=== PATIENT | male | born 1945 | race Two or more races ===

== ENCOUNTER 2018-03-23 12:25 | Emergency (ER) | payer MEDICARE, OTHER, SELFPAY ==
[2018-03-23 12:26] VITALS: BP 142/99; PULSE 75; RESP 22; TEMP 36.8; O2SAT 97; BMI 25.1
--- NOTE | 2018-03-23 12:30 | EKG12_ITS ---
Test Reason : CP Blood Pressure : / mmHG Vent. Rate : 066 BPM Atrial Rate : 066 BPM P-R Int : 158 ms QRS Dur : 088 ms QT Int : 392 ms P-R-T Axes : 011 -22 -03 degrees QTc Int : 410 ms Normal sinus rhythm Voltage criteria for left ventricular hypertrophy Abnormal ECG Confirmed by ANA WILKERSON, JAGDISH ([id number]), technical writer and editor SLADE MORA ([id number]) on 03/26/2018 1:42:27 PM Referred By: ZULEYKA Confirmed By:JAGDISH PEREZ MD
[2018-03-23] MEDS: Aspirin 81 MG TAB.CHEW 324 MG PO (12:39)
[2018-03-23 12:41] VITALS: O2SAT 97
--- NOTE | 2018-03-23 12:45 | RAD_ITS ---
STUDY: X-RAY CHEST REASON FOR EXAM: Male, 72 years old. Mid chest pain. TECHNIQUE: Portable chest COMPARISON: 08/21/2013. FINDINGS: The lungs are clear and expanded. Normal cardiomediastinal silhouette, arnold and pleural margins. No acute osseous or upper abdominal process. RAD/Chest 1 View (Portable) IMPRESSION: No acute cardiopulmonary process. Electronically Signed: Braulio Tiwari, at 13:29 EDT Tel , Service support ,
[2018-03-23 12:47] LABS: Absolute Lymphocyte Count 1.93 X10^3/ul (0.83-4.51); Absolute Neutrophil Count 4.2 X10^3/uL (2.0-7.7); Basophil# 0.07 X10^3/uL; Eosinophil# 0.15 X10^3/uL; Eosinophils% 2.1 % (0-5); Hematocrit 40.7 % (40-54); Hemoglobin 13.7 g/dl (13.0-16.5); Lymphocyte # 1.93 X10^3/ul (4.0); Mean Corp Hgb Conc 33.7 g/gl (32-36); Mean Corpuscular Hgb 27.7 pg (27.0-32.0); Mean Corpuscular Volume 82.2 fL (80-94); Mean Platelet Vol. 9.1 fl (6.2-12.0); Monocyte# 0.83 X10^3/uL; Monocyte% 11.6 % (0-10); Neutrophil # 4.15 X10^3/uL (2.7-7.7); Neutrophil % 58.2 % (47-70); Platelet Count 199 K/mm3 (150-450); Red Blood Count 4.95 M/mm3 (4.6-6.2); White Blood Count 7.1 K/mm3 (4.4-11.0)
[2018-03-23 12:50] LABS: POSITIVE COUNT NO; POSITIVE DIFFERENTIAL NO; POSITIVE MORPHOLOGY NO
[2018-03-23 13:00] LABS: Anion Gap 8 (5-15); BUN 16 mg/dL (7-18); BUN/Creat Ratio 17.9 RATIO (10-20); Calcium,Total 9.3 mg/dL (8.5-10.1); Chloride 98 mmol/L (98-107); EST Glomerular Filtration Rate 88 mL/min (>60); Est Glom Filt Rate - Afr Amer 107 mL/min (>60); Estimated Creatinine Clearance 68.34 ml/min; Glucose 242 mg/dL (74-106); Potassium 3.9 mmol/L (3.5-5.1); Sodium Level 133 mmol/L (136-145)
[2018-03-23 14:22] VITALS: BP 158/103; PULSE 70; RESP 18; O2SAT 99
[2018-03-23 15:15] VITALS: BP 158/85; PULSE 63; RESP 18; O2SAT 99
--- NOTE | 2018-03-23 15:19 | ED.DCSUM_ITS ---
- ER Visit Summary Date of Service: 03/23/18 Chief Complaint: Chest pain History of Present Illness: The patient is a 72 M with chest pain for an hour and a half, he has had cough with chest pain when he coughs for the past few days but an hour and half ago it got slightly worse. He has no fever chills no difficulty breathing. He has no shortness of breath he has a chronic cough. He does not have a history of hypertension, however he has hypertensive in the ED. Physical Examination: Not appear in acute distress. Moist mucous membranes, no obvious facial deformity No C-spine tenderness supple neck. Regular rate and rhythm without any obvious murmurs. There is reproducible r ight chest wall tenderness where he says his pain is. Clear lungs bilaterally speaking in full sentences without any obvious respiratory distress Abdomen soft and nontender no guarding or rebound Moves all extremities without any difficulty or pain. Skin does not show any obvious rashes or lesions, no trauma. Alert oriented ?3 with no gross focal deficit Emergency Department Course and Treatment: Patient has reproducible chest wall pain with an unremarkable EKG, however for his safety blood work was obtained and has a negative troponin, chest x-ray is also unremarkable. This is low risk for cardiac events I discussed this with him, he will be discharged to follow-up with Dr. Reeves for his blood pressure. Disposition: [Discharge stable condition] Impression: Chest pain Hypertension This note was generated with [employer] dictation software. It may contain incorrect words, spelling, and punctuation that were not noted in review of the chart prior to signing ED Disposition - Plan for ED Patient: Chief Complaint: Chest Pain Referrals: Jemma Reeves MD [Primary Care Provider] -
--- NOTE | 2018-03-23 15:20 | ED.DEP ---
ED Disposition - Plan for ED Patient: Disposition: Home or Assisted Living Chief Complaint: Chest Pain Instructions: ED Chest Pain Atypical Unkn Cause, ED Strain Chest Wall, ED Hypertension New Begin Tx Referrals: Jemma Reeves MD [Primary Care Provider] - 3-5 Days
== END 2018-03-23 15:31 | disposition home or self-care (01) ==
PROVIDERS: Emergency Provider Emergency Medicine; Family Provider Internal Medicine; PCP Internal Medicine
DX: R07.9 Chest pain, unspecified (principal); I10 Essential (primary) hypertension; R05 Cough
CPT/HCPCS: 71045; 80048; 84484; 85025; 93005; 99285; A4216

== ENCOUNTER 2018-10-06 15:53 | Inpatient (IN) | payer MEDICARE, OTHER, SELFPAY ==
[2018-10-06] VITALS (13 sets, daily range): BP systolic 112–170; BP diastolic 07–114; PULSE 65–95; RESP 12–28; TEMP 36.5–36.8; O2SAT 95–99; BMI 27.0; BMI 25.0; BMI 25.1
--- NOTE | 2018-10-06 16:06 | CT_ITS ---
STUDY: CTA NECK WITH CONTRAST REASON FOR EXAM: Male, 73 years old. Expressive aphasia and right facial droop RADIATION DOSAGE (If Supplied By Facility): CTDIvol = ( 21.41 ) mGy, DLP = ( 666.00 ) mGycm TECHNIQUE: CT angiography with multi-detector data acquisition was performed from the aortic arch to the skull base following intravenous administration of 100mL IV Isovue 370. MIP images were reconstructed from the axial data set. Post-processing of the angiographic images was performed, with multiplanar reformation and 3D reconstruction. Individualized dose optimization techniques were used for this CT. COMPARISON: None. FINDINGS: AORTIC ARCH: Normal visualized aortic arch. Mild calcific plaquing of the origin of the brachiocephalic. Normal, left common carotid, and left subclavian arteries. RIGHT CAROTID ARTERIES: Normal right common carotid artery (CCA). Normal right common carotid bulb. Normal origin of the right internal carotid (ICA) artery without a hemodynamically significant stenosis. Normal visualized cervical portion of the right internal carotid artery. Normal origin of the right external carotid artery (ECA). LEFT CAROTID ARTERIES: Normal left common carotid artery (CCA). Normal left common carotid bulb. Normal origin of the left internal carotid (ICA) artery without a hemodynamically significant stenosis. Normal visualized cervical portion of the left internal carotid artery. Normal origin of the left external carotid artery (ECA). VERTEBRAL ARTERIES: Normal bilateral vertebral arteries. IMPRESSION: Mild atherosclerotic disease No evidence for hemodynamically significant stenosis utilizing NASCET criteria Electronically Signed: Hola Perry MD at 17:05 EDT , Service support , STUDY: CTA OF THE BRAIN REASON FOR EXAM: Male, 73 years old. Stroke RADIATION DOSAGE (If Supplied By Facility): CTDIvol = ( 21.41 ) mGy, DLP = ( 666.00 ) mGycm TECHNIQUE: CT angiography was performed with a multi-detector CT scanner. Data acquisition was obtained from the skull base through the vertex following intravenous administration of 100mL IV Isovue 370. MIP images were reconstructed from the axial data set. Post-processing of the angiographic images was performed, with multiplanar reformation and 3D reconstruction. Individualized dose optimization techniques were used for this CT. COMPARISON: MRA of the brain on April 21, 2012 FINDINGS: Normal bilateral petrous carotid arteries. Moderate diffuse calcific plaquing of the right cavernous carotid artery with a normal supraclinoid bifurcation. Moderate diffuse calcific plaquing of the left cavernous carotid artery with a normal supraclinoid bifurcation. Normal right A1 segments of the anterior cerebral artery. Normal left A1 segments of the anterior cerebral artery. Normal intact anterior communicating artery (ACOM). Normal bilateral A2 segments of the anterior cerebral arteries. Normal right M1 and M2 segments of the middle cerebral arteries, with a normal M1 bifurcation. Normal left M1 and M2 segments of the middle cerebral arteries, with a normal M1 bifurcation. Posterior communicating arteries are not visualized consistent with normal variant Normal bilateral vertebral arteries. Normal basilar artery with a normal basilar bifurcation. The visualized bilateral superior cerebellar (SCA) arteries are normal. Normal bilateral P1, P2 and visualized P3 segments of the posterior cerebral arteries. There is no demonstrated aneurysm of the [place]. There is no demonstrated abnormality of the visualized brain. CT/CTA Head W/WO Contrast IMPRESSION: Atherosclerotic changes without a demonstrated aneurysm or hemodynamically significant stenosis. Electronically Signed: Hola Perry MD at 17:11 EDT , Service support ,
--- NOTE | 2018-10-06 16:06 | RAD_ITS ---
STUDY: X-RAY CHEST REASON FOR EXAM: Male, 73 years old. Stroke TECHNIQUE: Portable chest COMPARISON: 03/23/2018 FINDINGS: The lungs are clear and expanded. There is no demonstrated pleural abnormality. Normal size heart. Normal mediastinum and arnold. Normal visualized pulmonary arteries. Normal visualized aortic arch and descending thoracic aorta. Normal visualized thoracic spine. Normal visualized ribs, clavicles, and shoulders. There is no demonstrated abnormality of the visualized soft tissue structures of the upper abdomen. RAD/Chest 1 View IMPRESSION: Normal x-ray examination of the chest. Electronically Signed: Yohannes Talbert, at 16:40 EDT Tel , Service support ,
--- NOTE | 2018-10-06 16:06 | CT_ITS ---
STUDY: CTA NECK WITH CONTRAST REASON FOR EXAM: Male, 73 years old. Expressive aphasia and right facial droop RADIATION DOSAGE (If Supplied By Facility): CTDIvol = ( 21.41 ) mGy, DLP = ( 666.00 ) mGycm TECHNIQUE: CT angiography with multi-detector data acquisition was performed from the aortic arch to the skull base following intravenous administration of 100mL IV Isovue 370. MIP images were reconstructed from the axial data set. Post-processing of the angiographic images was performed, with multiplanar reformation and 3D reconstruction. Individualized dose optimization techniques were used for this CT. COMPARISON: None. FINDINGS: AORTIC ARCH: Normal visualized aortic arch. Mild calcific plaquing of the origin of the brachiocephalic. Normal, left common carotid, and left subclavian arteries. RIGHT CAROTID ARTERIES: Normal right common carotid artery (CCA). Normal right common carotid bulb. Normal origin of the right internal carotid (ICA) artery without a hemodynamically significant stenosis. Normal visualized cervical portion of the right internal carotid artery. Normal origin of the right external carotid artery (ECA). LEFT CAROTID ARTERIES: Normal left common carotid artery (CCA). Normal left common carotid bulb. Normal origin of the left internal carotid (ICA) artery without a hemodynamically significant stenosis. Normal visualized cervical portion of the left internal carotid artery. Normal origin of the left external carotid artery (ECA). VERTEBRAL ARTERIES: Normal bilateral vertebral arteries. IMPRESSION: Mild atherosclerotic disease No evidence for hemodynamically significant stenosis utilizing NASCET criteria Electronically Signed: Hola Perry MD at 17:05 EDT , Service support , STUDY: CTA OF THE BRAIN REASON FOR EXAM: Male, 73 years old. Stroke RADIATION DOSAGE (If Supplied By Facility): CTDIvol = ( 21.41 ) mGy, DLP = ( 666.00 ) mGycm TECHNIQUE: CT angiography was performed with a multi-detector CT scanner. Data acquisition was obtained from the skull base through the vertex following intravenous administration of 100mL IV Isovue 370. MIP images were reconstructed from the axial data set. Post-processing of the angiographic images was performed, with multiplanar reformation and 3D reconstruction. Individualized dose optimization techniques were used for this CT. COMPARISON: MRA of the brain on April 21, 2012 FINDINGS: Normal bilateral petrous carotid arteries. Moderate diffuse calcific plaquing of the right cavernous carotid artery with a normal supraclinoid bifurcation. Moderate diffuse calcific plaquing of the left cavernous carotid artery with a normal supraclinoid bifurcation. Normal right A1 segments of the anterior cerebral artery. Normal left A1 segments of the anterior cerebral artery. Normal intact anterior communicating artery (ACOM). Normal bilateral A2 segments of the anterior cerebral arteries. Normal right M1 and M2 segments of the middle cerebral arteries, with a normal M1 bifurcation. Normal left M1 and M2 segments of the middle cerebral arteries, with a normal M1 bifurcation. Posterior communicating arteries are not visualized consistent with normal variant Normal bilateral vertebral arteries. Normal basilar artery with a normal basilar bifurcation. The visualized bilateral superior cerebellar (SCA) arteries are normal. Normal bilateral P1, P2 and visualized P3 segments of the posterior cerebral arteries. There is no demonstrated aneurysm of the [place]. There is no demonstrated abnormality of the visualized brain. CT/CTA Neck W/WO Contrast IMPRESSION: Atherosclerotic changes without a demonstrated aneurysm or hemodynamically significant stenosis. Electronically Signed: Hola Perry MD at 17:11 EDT , Service support ,
--- NOTE | 2018-10-06 16:06 | EKG12_ITS ---
Test Reason : NEURO S/SX Blood Pressure : / mmHG Vent. Rate : 080 BPM Atrial Rate : 080 BPM P-R Int : 174 ms QRS Dur : 092 ms QT Int : 406 ms P-R-T Axes : 015 -16 009 degrees QTc Int : 468 ms Normal sinus rhythm Minimal voltage criteria for LVH, may be normal variant Borderline ECG Confirmed by PARVEEN ARIAS ([id number]), commercial production editor CALSO FARIAS ([id number]) on 10/08/2018 10:54:11 AM Referred By: Katie Yarbrough Confirmed By:PARVEEN ARIAS
--- NOTE | 2018-10-06 16:06 | CT_ITS ---
STUDY: CT BRAIN WITHOUT CONTRAST REASON FOR EXAM: Male, 73 years old. Possible stroke right facial droop RADIATION DOSAGE (If Supplied By Facility): CTDIvol = ( 44.99 ) mGy, DLP = ( 812.98 ) mGycm TECHNIQUE: Transaxial CT imaging of the brain was performed without administration of intravenous contrast material. Individualized dose optimization techniques were used for this CT. COMPARISON: CT 05/20/1970 FINDINGS: Normal soft tissue structures. Normal calvarium. There are stable central and cortical involutional changes. There is stable mild periventricular hypodensities. Normal brainstem. Normal cerebellum. There is no intracranial hemorrhage. There is no change from prior study. Normal visualized paranasal sinuses.Incidentally noted are old right maxillary and right zygoma fractures. CT/Brain/Head without Contrast IMPRESSION: Stable central and cortical involutional changes Stable old mild deep white matter ischemic changes, no change from prior study. Incidentally noted are old right maxillary and right zygoma fractures. There is also called to discussed with Physician: Sony Aguilar immediately after my review at 4:48 PM 10/06/2018. N.B. : The above information has been verbally conveyed by Yohannes Talbert to Sony Aguilar MD, MD, on 10/06/2018 16:51:58 (ET). Electronically Signed: Yohannes Talbert, at 16:52 EDT Tel , Service support ,
[2018-10-06 16:11] LABS: Bedside Glucose 228 mg/dL (70-110)
[2018-10-06 16:21] LABS: Absolute Lymphocyte Count 2.06 X10^3/ul (0.83-4.51); Absolute Neutrophil Count 3.6 X10^3/uL (2.0-7.7); Basophil# 0.06 X10^3/uL; Basophil% 0.9 % (0-1); Eosinophil# 0.28 X10^3/uL; Eosinophils% 4.2 % (0-5); Hematocrit 39.7 % (40-54); Hemoglobin 13.8 g/dl (13.0-16.5); Lymphocyte # 2.06 X10^3/ul (4.0); Lymphocyte % 30.7 % (19-41); Mean Corp Hgb Conc 34.8 g/gl (32-36); Mean Corpuscular Hgb 28.2 pg (27.0-32.0); Mean Platelet Vol. 9.4 fl (6.2-12.0); Monocyte# 0.71 X10^3/uL; Monocyte% 10.6 % (0-10); Neutrophil # 3.59 X10^3/uL (2.7-7.7); Neutrophil % 53.5 % (47-70); Platelet Count 197 K/mm3 (150-450); RBC Distribution Width CV 13.1 % (11.6-14.6); RBC Distribution Width SD 38.9 fl (35.1-43.9); White Blood Count 6.7 K/mm3 (4.4-11.0)
[2018-10-06 16:22] LABS: POSITIVE COUNT NO; POSITIVE DIFFERENTIAL NO; POSITIVE MORPHOLOGY NO
[2018-10-06 16:26] LABS: Prothrombin Time (Protime)PT. 13.3 SECONDS (11.7-14.9)
[2018-10-06 16:30] LABS: Anion Gap 8 (5-15); BUN 13 mg/dL (7-18); BUN/Creat Ratio 13.7 RATIO (10-20); Calcium,Total 9.2 mg/dL (8.5-10.1); Chloride 101 mmol/L (98-107); Creatinine, Serum 0.95 mg/dL (0.70-1.30); EST Glomerular Filtration Rate 82 mL/min (>60); Est Glom Filt Rate - Afr Amer 99 mL/min (>60); Glucose 237 mg/dL (74-106); Potassium 3.9 mmol/L (3.5-5.1); Sodium Level 132 mmol/L (136-145)
[2018-10-06 16:45] LABS: Partial Thromboplast Time 30.8 Seconds (24.1-36.2)
--- NOTE | 2018-10-06 18:41 | PCM.HP.STD ---
Problem List (1) CVA (cerebral vascular accident) Status: Acute (2) Hyponatremia Status: Acute (3) Diabetes mellitus Status: Chronic Qualifiers: Diabetes mellitus type: type 2 Comment: newly diagnosed, type II (4) BPH (benign prostatic hyperplasia) Status: Chronic History of Present Illness Date of Admission: 10/06/18 Chief Complaint: aphasia The patient is a 73 year old M with pmhx of DMt2 and knee arthritis who presents to the ER with c/o aphasia. He woke up this AM and made a phone call, the person on the other line noticed that his speech was off. He was last normal yesterday. His family also noticed that he missed his medications for about 4-5 days, and that he took them all at once today. He continues to have difficulty speaking. He was noted to have some right facial droop in the ER. Currently this appears resolved. His family says his face appears normal, but that his speech is still off. Some things he says are easily understandable, others are heavily slurred to the point that they cannot be understood. He denies focal weakness. He denies RENTERIA, he denies numbness/tingling. He otherwise feels well. He has no hx of atrial fibrillation, and no history of CVA. No immediate family hx strokes either. [] Past Medical History Past Medical History (Chronic Problems): Chronic Problems BPH (benign prostatic hyperplasia) (Chronic) Diastolic dysfunction, left ventricle (Chronic) Diabetes mellitus (Chronic) newly diagnosed, type II Ventral hernia (Chronic) Allergies No Known Allergies Allergy (Verified 10/06/18 16:02) Home Medications: Ambulatory Orders Medication Instructions Recorded Tamsulosin HCl [Flomax] 0.8 mg PO QHS 04/25/15 Naproxen [Naprosyn] 500 mg PO BID 10/06/18 traZODone [Desyrel] 50 mg PO DAILY 10/06/18 Surgical History: no surgical history Psychiatric History: No pertinent psych hx Lives: With Family Smoking Status: Never smoker Tobacco Use: Non-smoker Alcohol: None Drugs: None - *Family History Maternal History Items: No pertinent history Paternal History Items: No pertinent history Sibling History Items: - - bells palsy - brother Review of Systems Constitutional: Denies: Chills, Fever, Weight Change HEENT: Denies: Head Aches, Sinus Congestion, Sinus Drainage Cardiovascular: Denies: Chest Pain, Palpitations Respiratory: Denies: Cough, Shortness of breath at rest, Sputum production Gastrointestinal: Denies: Abdominal Pain, Nausea, Vomiting Genitourinary: Denies: Dysuria Musculoskeletal: Denies: Joint Pain, Joint Tenderness Skin: Denies: Rash, Wounds Neurological: Reports: Change in Speech, Slurred speech. Denies: Confusion, Focal weakness, Headaches, Numbness, Tingling Psychiatric: Denies: Anxiety, Depression, Homicidal Ideations, Suicidal Ideations Hematologic/ Lymphatic: Denies: Easy Bruising, Easy Bleeding VTE Information - Inpt Only VTE Present on Admission: No VTE Mechan Device Prophylaxis: None VTE Pharm Prophylaxis ordered?: Yes Patient Problems: Active and Suspected Problems CVA (cerebral vascular accident) (Acute) Hyponatremia (Acute) - Physical Exam General: Alert, Oriented x3, Cooperative HEENT: Atraumatic, PERRLA, EOMI, Normocephalic Neck: Supple, No JVD, Negative Carotid Bruits Lungs: Clear to auscultation, Normal air movement Cardiovascular: Regular rate, No murmurs Abdomen: Bowel Sounds Present, Soft, Non Tender Extremities: No edema, Capillary Refill Less than 3 Seconds Skin: No rashes, No breakdown Musculoskeletal: No Tenderness to Palpation of Joints or Extremities Neurological: Cranial nerves II-XII grossly intact, Slurred Speech, - - he had difficulty tracking the finger on eye exam however all movemens of the eye are intact. No facial droop. no pronator drift. Psych/Mental Status: Normal Affect, Appropriate, Alert and oriented to time, place, person, mood and affect Vital Signs Temp Pulse Resp BP Pulse Ox 98.2 F 79 16 145/102 H 98 10/06/18 15:54 10/06/18 18:30 10/06/18 18:30 10/06/18 18:30 10/06/18 18:30 Oxygen Flow Rate (L/min) 2 Oxygen Delivery Method Nasal Cannula Weight: 177 lb 14.609 oz Body Mass Index (BMI) 27.0 Finger Stick Blood Glucose 231 Laboratory Tests Past 24 Hrs 10/06/18 10/06/18 10/06/18 16:04 16:04 16:04 WBC 6.7 RBC 4.90 Hgb 13.8 Hct 39.7 L MCV 81.0 MCH 28.2 MCHC 34.8 RDW 13.1 RDW Differential 38.9 Plt Count 197 MPV 9.4 Immature Gran % (Auto) 0.100 Neut % (Auto) 53.5 Lymph % (Auto) 30.7 [place] % (Auto) 10.6 H Eos % (Auto) 4.2 Baso % (Auto) 0.9 Absolute Neuts (auto) 3.6 Absolute Lymphs (auto) 2.06 Total Counted Not Reportable PT 13.3 INR 1.0 APTT 30.8 Sodium 132 L Potassium 3.9 Chloride 101 Carbon Dioxide 23.0 Anion Gap 8 BUN 13 Creatinine 0.95 Estim Creat Clear Calc 66.00 Est GFR (MDRD) Af Amer 99 Est GFR (MDRD) Non-Af 82 BUN/Creatinine Ratio 13.7 Glucose 237 H Calcium 9.2 Troponin I < 0.015 POC Glucose 10/06/18 16:07 POC Glucose 228 H Assessment/Plan All Active Problems CVA (cerebral vascular accident) (Acute) Hyponatremia (Acute) Chest pain (Acute) 1. Aphasia, dysarthria, facial droop - concern for acute CVA. CT brain neg, CTA neck neg. Trop neg. CXR neg. He also took 4-5 days of medications at once today because he missed taking them (unclear which) -PT/OT/ST evals -MRI brain -Neuro consult -echo -tele 2. DMt2 - poorly controlled. check a1c. SSI. 3. BPH - flomax 4. Osteoarthritis - on naproxen DVT ppx: lovenox This patient was seen by Clay Anthony PA-C under the supervision of Dr. Yarbrough.
--- NOTE | 2018-10-06 18:55 | ED.VISSUMM ---
- ER Visit Summary Date of Service: 10/06/18 Chief Complaint: Slurred speech History of Present Illness: The patient is a [address] Acevedo. He reports that he has slurred speech that began 12 hours ago. He denies any numbness or weakness. He reports that his been off balance and had vertigo. He denies any change in his vision. Physical Examination: Vitals: Stable. Afebrile. General: Well-nourished and well-developed. Head: Normocephalic atraumatic. Neck: Supple, no lymphadenopathy. No JVD. Nontender. Cardiovascular: Regular rate and rhythm. No murmurs. Respiratory: No respiratory distress. Clear to auscultation bilaterally. Abdominal: Soft, nontender, nondistended, normal bowel sounds. No guarding, rebound, or peritoneal signs. Back: Nontender. Extremities: Nontender, no edema. Skin: Normal color, no rash. Neurologic: Alert and oriented ?3. Cranial nerves II through XII are intact except for a right facial droop. Normal strength and sensation. Obvious expressive aphasia. Psych: Normal affect. Test Results: EKG is sinus at [address] changes. Troponin is negative. Chem-7 shows a sodium 132 and glucose 237. CBC shows eosinophils of 11. CT head shows no acute disease. Is unchanged from May 20, 2017. CTA of head and neck shows normal vertebrals and carotids. Normal [place]. Normal A1/A2, M1/M2, and P1/P2. Emergency Department Course and Treatment: Patient symptoms have waxed and waned while here. His NIH scale is 3 and he does have an expressive aphasia. However, he presented approximately 12 hours after the onset of this. So he is not a TPA candidate. Treatment Plan: The patient was discussed with Dr. Yarbrough and Dr. Harden. He will be admitted to the hospital for further relation and treatment. Disposition: Admitted in stable condition. Impression: 1. CVA. This note was generated with [employer] dictation software. It may contain incorrect words, spelling, and punctuation that were not noted in review of the chart prior to signing ED Disposition - Plan for ED Patient: Referrals: Diamond Acevedo MD [Primary Care Provider] -
--- NOTE | 2018-10-06 18:59 | ED.DCSUM_ITS ---
- ER Visit Summary Date of Service: 10/06/18 Chief Complaint: Slurred speech History of Present Illness: The patient is a [address] Acevedo. He reports that he has slurred speech that began 12 hours ago. He denies any numbness or weakness. He reports that his been off balance and had vertigo. He denies any change in his vision. Physical Examination: Vitals: Stable. Afebrile. General: Well-nourished and well-developed. Head: Normocephalic atraumatic. Neck: Supple, no lymphadenopathy. No JVD. Nontender. Cardiovascular: Regular rate and rhythm. No murmurs. Respiratory: No respiratory distress. Clear to auscultation bilaterally. Abdominal: Soft, nontender, nondistended, normal bowel sounds. No guarding, rebound, or peritoneal signs. Back: Nontender. Extremities: Nontender, no edema. Skin: Normal color, no rash. Neurologic: Alert and oriented ?3. Cranial nerves II through XII are intact except for a right facial droop. Normal strength and sensation. Obvious expressive aphasia. Psych: Normal affect. Test Results: EKG is sinus at [address] changes. Troponin is negative. Chem-7 shows a sodium 132 and glucose 237. CBC shows eosinophils of 11. CT head shows no acute disease. Is unchanged from May 20, 2017. CTA o f head and neck shows normal vertebrals and carotids. Normal [place]. Normal A1/A2, M1/M2, and P1/P2. Emergency Department Course and Treatment: Patient symptoms have waxed and waned while here. His NIH scale is 3 and he does have an expressive aphasia. However, he presented approximately 12 hours after the onset of this. So he is not a TPA candidate. Treatment Plan: The patient was discussed with Dr. Yarbrough and Dr. Harden. He will be admitted to the hospital for further relation and treatment. Disposition: Admitted in stable condition. Impression: 1. CVA. This note was generated with [employer] dictation software. It may contain incorrect words, spelling, and punctuation that were not noted in review of the chart prior to signing ED Disposition - Plan for ED Patient: Referrals: Diamond Acevedo MD [Primary Care Provider] -
--- NOTE | 2018-10-06 19:32 | ECHOD_ITS ---
Reason For Study: TIA/Stroke Procedure This was a 2D Doppler, Color Flow transthoracic echocardiogram. Contrast injection was performed. Exam performed portable in patient room. Left Ventricle Normal size and thickness. The estimated ejection fraction is 65 %. Stage 1 diastolic dysfunction. No regional wall motion abnormalities noted. Right Ventricle Normal size and thickness. Normal systolic function. Atria Normal left atrium. Normal right atrium. Normal atrial septum. Bubble contrast study negative for right to left interatrial shunt. Mitral Valve The mitral valve is structurally normal. No prolapse or stenosis seen. Mild (1+) mitral valve insufficiency. Tricuspid Valve Normal tricuspid valve. Mild (1+) tricuspid valve insufficiency. Right ventricular systolic pressure estimated to be 28 mmHg. Aortic Valve Normal aortic valve. Trisinus/trileaflet aortic valve. Pulmonic Valve Normal pulmonic valve. Great Vessels Normal aortic root. Normal arch. Normal inferior vena cava. Inferior vena cava collapse with sniff. Pericardium/Pleural No pericardial effusion. Medication Performed a rapid injection of agitated mix of 9 cc saline and 1cc air to assess for atrial septal defect. Definity0.2ml given slow IV push to enhance endocardial definition. MMode/2D Measurements & Calculations LVIDd: 3.8 cm IVSd: 1.3 cm Ao root diam: 3.6 cm LVIDs: 2.6 cm LVPWd: 0.69 cm RVDd: 3.4 cm FS: 32.6 % LAV(MOD-bp): 63.5 ml LVAd ap4: 28.5 cm2 SV(MOD-sp4): 46.1 ml LAV(MOD-bp) Indexed: 34.1 ml/m2 EDV(MOD-sp4): 84.4 ml LAV(MOD-sp2): 60.1 ml EDV(sp4-el): 88.6 ml LAV(MOD-sp4): 60.4 ml LVAs ap4: 17.2 cm2 ESV(MOD-sp4): 38.3 ml ESV(sp4-el): 38.9 ml EF(MOD-sp4): 54.6 % EF(sp4-el): 56.1 % SV(sp4-el): 49.6 ml LA A4 area: 20.7 cm2 LA dimension(2D): 3.5 cm RA A4 area: 13.1 cm2 Doppler Measurements & Calculations MV E max steven: 67.6 cm/sec Lat Peak E' Steven: 8.7 cm/sec Med Peak E' Steven: 6.8 cm/sec MV A max steven: 59.3 cm/sec E/E' lat: 7.8 E/E' med: 10.0 MV E/A: 1.1 Ao V2 max: 119.7 cm/sec LV V1 max: 95.5 cm/sec PA V2 max: 80.0 cm/sec Ao max P.7 mmHg LV V1 max P.6 mmHg Ao V2 mean: 83.4 cm/sec Ao mean P.0 mmHg Ao V2 VTI: 26.9 cm TR max steven: 240.3 cm/sec TR max P.1 mmHg Interpretation Summary The estimated ejection fraction is 65 %. Stage 1 diastolic dysfunction. Bubble contrast study negative for right to left interatrial shunt. Mild (1+) mitral valve insufficiency. Mild (1+) tricuspid valve insufficiency. Right ventricular systolic pressure estimated to be 28 mmHg. Compared to echo report dated 08/23/2013, no appreciable changes noted. The study was technically difficult. Contrast injection was performed. Ordering Physician: Katie Yarbrough Referring Physician: Diamond Acevedo Performed By: Kenzie Richardson, BRAD, RVT
[2018-10-06 20:24] LABS: Magnesium 1.7 mg/dL (1.6-2.6); Thyroid Stim Hormone (TSH) 0.87 uIU/mL (0.358-3.74)
[2018-10-06] MEDS: Aspirin 81 MG TAB.CHEW PO (20:44)
[2018-10-06] MEDS: 0.9% Normal Saline 1,000 ML 100 ML IV (20:44)
[2018-10-06 21:20] LABS: Bedside Glucose 187 mg/dL (70-110)
[2018-10-06 22:07] LABS: Bacteria 0 SEEN /hpf (None Seen); Mucous, Urine 0 SEEN /hpf (<or=2+); Red Blood Cells-Urine 0 SEEN /hpf (0-5); Squamous Epithelial Cells - UA 0 SEEN /hpf (0-5)
[2018-10-06 22:21] LABS: Hemoglobin A1c 9.3 % (4.2-6.3)
[2018-10-06 22:23] LABS: Color, Urine Yellow (Yellow); Glucose, Dipstick 250 mg/dl (Normal); Ketone-Dipstick 5 mg/dl (Negative); Leukocyte Esterase-Dipstick 25 /ul (Negative); Nitrite-Dipstick Negative (Negative); Occult Blood-Urine Negative /ul (Negative); Protein-Dipstick 30 mg/dl (Negative); Urine Bilirubin Dipstick Negative (Negative); Urine Clarity Clear (Clear); Urine Urobilinogen Normal (Normal)
[2018-10-06 22:26] LABS: White Blood Cells 0-5 SEEN /hpf (0-5)
[2018-10-06] MEDS: Atorvastatin Calcium 40 MG Tablet PO (22:26)
[2018-10-06] MEDS: Famotidine 20 MG Tablet PO (22:26)
[2018-10-06] MEDS: Tamsulosin HCl 0.4 MG Capsule 0.8 MG PO (22:26)
[2018-10-06] MEDS: Insulin Lispro 100 UNIT/ML INSULN.PEN SC (22:33)
[2018-10-07] VITALS (14 sets, daily range): BP systolic 117–145; BP diastolic 60–96; PULSE 53–88; RESP 16–18; TEMP 36.5–36.9; O2SAT 94–96; BMI 25.0
[2018-10-07 06:30] LABS: Cholesterol 163 mg/dL (200); High Density Lipoprotein 42 mg/dL; Triglycerides 128 mg/dL; Very Low Density Lipoprotein 26 mg/dL (5-40)
[2018-10-07] MEDS: 0.9% Normal Saline 1,000 ML 100 ML IV ×2 (06:49→18:37)
[2018-10-07] MEDS: Insulin Lispro 100 UNIT/ML INSULN.PEN SC ×4 (06:50→22:15)
[2018-10-07 06:55] LABS: Bedside Glucose 222 mg/dL (70-110)
--- NOTE | 2018-10-07 08:10 | MRI_ITS ---
We are attempting to reach Katie Yarbrough to discuss findings. An addendum with communication details will be sent when the communication is complete. STUDY: MRI BRAIN WITHOUT CONTRAST REASON FOR EXAM: Male, 73 years old. CVA, slurred speech TECHNIQUE: Standardized multiplanar fat and water weighted pulse sequences were obtained. COMPARISON: CT head 10/06/2018. FINDINGS: There is moderate cerebral atrophy with widening of the extra-axial spaces and ventricular dilatation. There are a limited number of small white matter hyperintensities, distributed throughout the deep white matter tracts of the cerebral hemispheres, consistent with mild chronic white matter ischemic changes. There is a region of curvilinear restricted diffusion in the left internal capsule posterior limb and putamen in keeping with acute infarct. The right basal ganglia is normal. Normal thalami. There is no extra-axial fluid accumulation. Normal flow voids within the major intracranial circulation suggesting patency by spin echo criteria. There is mild ectatic enlargement with elongation of the basilar artery with elevation of the mamillary bodies consistent with a dolichoectasia of the basilar artery. Normal sella turcica, pituitary gland, infundibular stalk, optic chiasm and hypothalamus. Normal tectal plate and pineal gland. Normal midbrain, monica and medulla. Normal cerebellum. Normal basal cisterns. Normal bilateral temporal bones. Normal bilateral internal auditory canals. No demonstrated orbital abnormality, within the constraints of a routine brain study. Normal visualized paranasal sinuses. Normal calvarium and skull base. Normal visualized soft tissue structures. Normal visualized upper cervical spine. MRI/Brain without Contrast IMPRESSION: Small acute infarct in the left internal capsule posterior limb and putamen. No intracranial hemorrhage. Chronic involutional changes as described above. Electronically Signed: Mirtha Sanches, at 11:24 EDT Tel , Service support ,
[2018-10-07] MEDS: Aspirin 81 MG TAB.CHEW PO (08:13)
[2018-10-07 08:46] LABS: Anion Gap 5 (5-15); BUN 13 mg/dL (7-18); BUN/Creat Ratio 15.5 RATIO (10-20); Calcium,Total 8.2 mg/dL (8.5-10.1); Chloride 107 mmol/L (98-107); Creatinine, Serum 0.84 mg/dL (0.70-1.30); EST Glomerular Filtration Rate 95 mL/min (>60); Est Glom Filt Rate - Afr Amer 115 mL/min (>60); Estimated Creatinine Clearance 72.13 ml/min; Glucose 230 mg/dL (74-106); Sodium Level 136 mmol/L (136-145)
--- NOTE | 2018-10-07 10:04 | PCM.CONS.GEN ---
Reason for Consult Date of Consultation: 10/07/18 Reason for Consultation: Stroke History of Present Illness: The patient is a 73 year old M with PMH DM, BPH admitted with stroke. 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 At present patient is accompanied by his son and feels his speech is much better but is still not at baseline, denies any headache, dizziness, visual disturbances, motor weakness or sensory loss at present. He lives with his son, does not use any cane or walker to ambulate, denies any frequent falls, does drive and does not need any assistance for his ADLs. He is not taking aspirin at baseline.] Past Medical History Past Medical History (Chronic Problems): Chronic Problems BPH (benign prostatic hyperplasia) (Chronic) Diastolic dysfunction, left ventricle (Chronic) Diabetes mellitus (Chronic) newly diagnosed, type II Ventral hernia (Chronic) Allergies No Known Allergies Allergy (Verified 10/06/18 16:02) Home Medications: Ambulatory Orders Medication Instructions Recorded Tamsulosin HCl [Flomax] 0.8 mg PO QHS 04/25/15 Glipizide 5 mg PO DAILY 10/06/18 RX: Metformin(XR) [Glucophage Xr] 1,000 mg PO DAILY 10/06/18 RX: Naproxen [Naprosyn] 500 mg PO BID 10/06/18 RX: traZODone [Desyrel] 50 mg PO DAILY 10/06/18 Surgical History: no surgical history Psychiatric History: No pertinent psych hx Lives: With Family Smoking Status: Never smoker Tobacco Use: Non-smoker Alcohol: None Drugs: None - *Family History Maternal History Items: No pertinent history Paternal History Items: No pertinent history Sibling History Items: - - bells palsy - brother Review of Systems Constitutional: Reports: - - Complete ROS negative except as documented in HPI Patient Problems: Active and Suspected Problems CVA (cerebral vascular accident) (Acute) Hyponatremia (Acute) - Physical Exam General: Alert HEENT: Normocephalic Neck: Supple Lungs: Normal air movement Abdomen: Bowel Sounds Present Extremities: No cyanosis Neurological: - - consious, alert, AoAx3, Cn 2-12 grossly intact, power 5/5 both UE/LE, no sensory loss, no cerebellar signs, Reflexes + B/L B/S/T/K/A, gait deferred, no aphasia, ?dysarthria, NIHSS 1 at present, mRS 0 at baseline Psych/Mental Status: Normal Affect Vital Signs Temp Pulse Resp BP Pulse Ox 98.0 F 67 16 130/86 H 94 10/07/18 07:42 10/07/18 07:42 10/07/18 07:42 10/07/18 07:42 10/07/18 07:42 Oxygen Flow Rate (L/min) 3 Oxygen Delivery Method Room Air Weight: 72.6 kg Body Mass Index (BMI) 25.0 Finger Stick Blood Glucose 231 Intake and Output for Last 24 Hours 10/05/18 10/06/18 10/07/18 23:59 23:59 23:59 Intake Total 480 / 480 1237 / 1237 Balance 480 / 480 1237 / 1237 Laboratory Tests Past 24 Hrs 10/06/18 10/06/18 10/06/18 16:04 16:04 16:04 WBC 6.7 RBC 4.90 Hgb 13.8 Hct 39.7 L MCV 81.0 MCH 28.2 MCHC 34.8 RDW 13.1 RDW Differential 38.9 Plt Count 197 MPV 9.4 Immature Gran % (Auto) 0.100 Neut % (Auto) 53.5 Lymph % (Auto) 30.7 [place] % (Auto) 10.6 H Eos % (Auto) 4.2 Baso % (Auto) 0.9 Absolute Neuts (auto) 3.6 Absolute Lymphs (auto) 2.06 Total Counted Not Reportable PT 13.3 INR 1.0 APTT 30.8 Sodium 132 L Potassium 3.9 Chloride 101 Carbon Dioxide 23.0 Anion Gap 8 BUN 13 Creatinine 0.95 Estim Creat Clear Calc 66.00 Est GFR (MDRD) Af Amer 99 Est GFR (MDRD) Non-Af 82 BUN/Creatinine Ratio 13.7 Glucose 237 H Hemoglobin A1c Calcium 9.2 Magnesium Troponin I < 0.015 Triglycerides Cholesterol LDL Cholesterol VLDL Cholesterol HDL Cholesterol TSH Urine Color Urine Clarity Urine pH Ur Specific [place] Urine Protein Urine Glucose (UA) Urine Ketones Urine Occult Blood Urine Nitrite Urine Bilirubin Urine Urobilinogen Ur Leukocyte Esterase Urine RBC Urine WBC Ur Squamous Epith Cells Urine Bacteria Urine Mucus 10/06/18 10/06/18 10/06/18 16:04 16:04 22:00 WBC RBC Hgb Hct MCV MCH MCHC RDW RDW Differential Plt Count MPV Immature Gran % (Auto) Neut % (Auto) Lymph % (Auto) [place] % (Auto) Eos % (Auto) Baso % (Auto) Absolute Neuts (auto) Absolute Lymphs (auto) Total Counted PT INR APTT Sodium Potassium Chloride Carbon Dioxide Anion Gap BUN Creatinine Estim Creat Clear Calc Est GFR (MDRD) Af Amer Est GFR (MDRD) Non-Af BUN/Creatinine Ratio Glucose Hemoglobin A1c 9.3 H Calcium Magnesium 1.7 Troponin I Triglycerides Cholesterol LDL Cholesterol VLDL Cholesterol HDL Cholesterol TSH 0.87 Urine Color Yellow Urine Clarity Clear Urine pH 6.0 Ur Specific [place] 1.010 Urine Protein 30 H Urine Glucose (UA) 250 H Urine Ketones 5 H Urine Occult Blood Negative Urine Nitrite Negative Urine Bilirubin Negative Urine Urobilinogen Normal Ur Leukocyte Esterase 25 H Urine RBC 0 SEEN Urine WBC 0-5 SEEN Ur Squamous Epith Cells 0 SEEN Urine Bacteria 0 SEEN Urine Mucus 0 SEEN 10/07/18 10/07/18 05:40 05:40 WBC RBC Hgb Hct MCV MCH MCHC RDW RDW Differential Plt Count MPV Immature Gran % (Auto) Neut % (Auto) Lymph % (Auto) [place] % (Auto) Eos % (Auto) Baso % (Auto) Absolute Neuts (auto) Absolute Lymphs (auto) Total Counted PT INR APTT Sodium 136 Potassium 4.0 Chloride 107 Carbon Dioxide 24.0 Anion Gap 5 BUN 13 Creatinine 0.84 Estim Creat Clear Calc 72.13 Est GFR (MDRD) Af Amer 115 Est GFR (MDRD) Non-Af 95 BUN/Creatinine Ratio 15.5 Glucose 230 H Hemoglobin A1c Calcium 8.2 L Magnesium Troponin I Triglycerides 128 Cholesterol 163 LDL Cholesterol 95 VLDL Cholesterol 26 HDL Cholesterol 42 TSH Urine Color Urine Clarity Urine pH Ur Specific [place] Urine Protein Urine Glucose (UA) Urine Ketones Urine Occult Blood Urine Nitrite Urine Bilirubin Urine Urobilinogen Ur Leukocyte Esterase Urine RBC Urine WBC Ur Squamous Epith Cells Urine Bacteria Urine Mucus POC Glucose 10/07/18 10/06/18 10/06/18 06:48 19:57 16:07 POC Glucose 222 H 187 H 228 H Assessment/Plan All Active Problems CVA (cerebral vascular accident) (Acute) Hyponatremia (Acute) Chest pain (Acute) The patient is a 73 year old M with PMH DM, BPH admitted with stroke. 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 At present patient is accompanied by his son and feels his speech is much better but is still not at baseline, denies any headache, dizziness, visual disturbances, motor weakness or sensory loss at present. He lives with his son, does not use any cane or walker to ambulate, denies any frequent falls, does drive and does not need any assistance for his ADLs. He is not taking aspirin at baseline. Impression Acute left MCA stroke Plan ?Aspirin 81 mg p.o. once daily and Plavix 75 mg p.o. once daily. Dual antiplatelets for 3 weeks and then switch to aspirin. Bleeding risks discussed in detail ?Lipitor 40 mg p.o. nightly ?MRI brain images reviewed?small acute left MCA infarct ?CT angiogram head and neck?no hemodynamically significant stenosis or occlusion ?Labs reviewed ?Stroke risk factors discussed and stroke education provided ?TTE?EF 65%, normal left atrium, no PFO ?LDL?95 and HbA1c?9.3 ?Recommend 30-day event recorder on discharge ?Better blood sugar control and endocrinology consult ?Goal BP less than 130/80 mmHg and goal HbA1c less than 7% ?PT/OT/ST ?GI/DVT prophylaxis ?Fall precautions ?Further medical management per hospitalist team ?Follow-up with neurology as outpatient in 2 to 3 weeks ?Please call with questions if any ?Thank you for allowing us to participate in patient's care and management
[2018-10-07] MEDS: Enoxaparin 40 MG/0.4 ML Syringe SC (11:26)
[2018-10-07] MEDS: Famotidine 20 MG Tablet PO (11:29)
[2018-10-07 13:40] LABS: Bedside Glucose 181 mg/dL (70-110)
--- NOTE | 2018-10-07 15:29 | CASEMGMT ---
Therapy is recommending rehab unit. ABIMAEL spoke with [facility]ara and made referral. She will check with Dr Harden. Samara called back and said they can take patient tomorrow. ABIMAEL notified patient and his family. ABIMAEL explained 4th floor rehab is on the old side of the hospital and he would stay there for a week or two depending on how he does. Plan: [facility] 4th floor rehab unit 10-08-18 Amber PAREKH MSW
--- NOTE | 2018-10-07 15:48 | PCM.PROGNOTE ---
<Clay Anthony - Last Filed: 10/07/18 15:48> Patient Problems: Active and Suspected Problems CVA (cerebral vascular accident) (Acute) Hyponatremia (Acute) Subjective: Speech improved, still some deficits. Pt very unsteady on his feet and dizzy. No RENTERIA. No vision change. No appreciable facial droop. No focal weakness. No numbness/tingling. - Physical Exam General: Alert, Oriented x3, Cooperative HEENT: Atraumatic, PERRLA, EOMI, Normocephalic Neck: Supple, No JVD, Negative Carotid Bruits Lungs: Clear to auscultation, Normal air movement Cardiovascular: Regular rate, No murmurs Abdomen: Bowel Sounds Present, Soft, Non Tender Extremities: No edema, Capillary Refill Less than 3 Seconds Skin: No rashes, No breakdown Musculoskeletal: No Tenderness to Palpation of Joints or Extremities Neurological: Cranial nerves II-XII grossly intact, Slurred Speech Psych/Mental Status: Normal Affect, Appropriate, Alert and oriented to time, place, person, mood and affect Vital Signs Temp Pulse Resp BP Pulse Ox 97.8 F 78 17 145/91 H 96 10/07/18 14:30 10/07/18 14:30 10/07/18 14:30 10/07/18 14:30 10/07/18 14:30 Oxygen Flow Rate (L/min) 3 Oxygen Delivery Method Room Air Weight: 160 lb 0.889 oz Body Mass Index (BMI) 25.0 Finger Stick Blood Glucose 231 Intake and Output for Last 24 Hours 10/05/18 10/06/18 10/07/18 23:59 23:59 23:59 Intake Total 480 / 480 2100 / 2100 Balance 480 / 480 2100 / 2100 Laboratory Tests Past 24 Hrs 10/06/18 10/06/18 10/06/18 16:04 16:04 16:04 WBC 6.7 RBC 4.90 Hgb 13.8 Hct 39.7 L MCV 81.0 MCH 28.2 MCHC 34.8 RDW 13.1 RDW Differential 38.9 Plt Count 197 MPV 9.4 Immature Gran % (Auto) 0.100 Neut % (Auto) 53.5 Lymph % (Auto) 30.7 [place] % (Auto) 10.6 H Eos % (Auto) 4.2 Baso % (Auto) 0.9 Absolute Neuts (auto) 3.6 Absolute Lymphs (auto) 2.06 Total Counted Not Reportable PT 13.3 INR 1.0 APTT 30.8 Sodium 132 L Potassium 3.9 Chloride 101 Carbon Dioxide 23.0 Anion Gap 8 BUN 13 Creatinine 0.95 Estim Creat Clear Calc 66.00 Est GFR (MDRD) Af Amer 99 Est GFR (MDRD) Non-Af 82 BUN/Creatinine Ratio 13.7 Glucose 237 H Hemoglobin A1c Calcium 9.2 Magnesium Troponin I < 0.015 Triglycerides Cholesterol LDL Cholesterol VLDL Cholesterol HDL Cholesterol TSH Urine Color Urine Clarity Urine pH Ur Specific [place] Urine Protein Urine Glucose (UA) Urine Ketones Urine Occult Blood Urine Nitrite Urine Bilirubin Urine Urobilinogen Ur Leukocyte Esterase Urine RBC Urine WBC Ur Squamous Epith Cells Urine Bacteria Urine Mucus 10/06/18 10/06/18 10/06/18 16:04 16:04 22:00 WBC RBC Hgb Hct MCV MCH MCHC RDW RDW Differential Plt Count MPV Immature Gran % (Auto) Neut % (Auto) Lymph % (Auto) [place] % (Auto) Eos % (Auto) Baso % (Auto) Absolute Neuts (auto) Absolute Lymphs (auto) Total Counted PT INR APTT Sodium Potassium Chloride Carbon Dioxide Anion Gap BUN Creatinine Estim Creat Clear Calc Est GFR (MDRD) Af Amer Est GFR (MDRD) Non-Af BUN/Creatinine Ratio Glucose Hemoglobin A1c 9.3 H Calcium Magnesium 1.7 Troponin I Triglycerides Cholesterol LDL Cholesterol VLDL Cholesterol HDL Cholesterol TSH 0.87 Urine Color Yellow Urine Clarity Clear Urine pH 6.0 Ur Specific [place] 1.010 Urine Protein 30 H Urine Glucose (UA) 250 H Urine Ketones 5 H Urine Occult Blood Negative Urine Nitrite Negative Urine Bilirubin Negative Urine Urobilinogen Normal Ur Leukocyte Esterase 25 H Urine RBC 0 SEEN Urine WBC 0-5 SEEN Ur Squamous Epith Cells 0 SEEN Urine Bacteria 0 SEEN Urine Mucus 0 SEEN 10/07/18 10/07/18 05:40 05:40 WBC RBC Hgb Hct MCV MCH MCHC RDW RDW Differential Plt Count MPV Immature Gran % (Auto) Neut % (Auto) Lymph % (Auto) [place] % (Auto) Eos % (Auto) Baso % (Auto) Absolute Neuts (auto) Absolute Lymphs (auto) Total Counted PT INR APTT Sodium 136 Potassium 4.0 Chloride 107 Carbon Dioxide 24.0 Anion Gap 5 BUN 13 Creatinine 0.84 Estim Creat Clear Calc 72.13 Est GFR (MDRD) Af Amer 115 Est GFR (MDRD) Non-Af 95 BUN/Creatinine Ratio 15.5 Glucose 230 H Hemoglobin A1c Calcium 8.2 L Magnesium Troponin I Triglycerides 128 Cholesterol 163 LDL Cholesterol 95 VLDL Cholesterol 26 HDL Cholesterol 42 TSH Urine Color Urine Clarity Urine pH Ur Specific [place] Urine Protein Urine Glucose (UA) Urine Ketones Urine Occult Blood Urine Nitrite Urine Bilirubin Urine Urobilinogen Ur Leukocyte Esterase Urine RBC Urine WBC Ur Squamous Epith Cells Urine Bacteria Urine Mucus POC Glucose 10/07/18 10/07/18 10/06/18 11:12 06:48 19:57 POC Glucose 181 H 222 H 187 H 10/06/18 16:07 POC Glucose 228 H Medical Necessity - Tobacco Use Smoking Status: Never smoker Tobacco Use: Non-smoker Assessment/Plan All Active Problems CVA (cerebral vascular accident) (Acute) Hyponatremia (Acute) Chest pain (Acute) 1. 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 -CT brain neg -CTA head/neck neg. Trop neg. -PT/OT/ST evals -Neuro following -echo preserved EF, negative bubble study. -no events on tele - NSR. -hyponatremia resolved -tsh normal -A1C 9.3. -continue lipitor, aspirin 2. DMt2 - poorly controlled. SSI, resume metformin/glipizide at DC. Metformin to BID. Consider adding lantus. 3. BPH - flomax 4. Hx Osteoarthritis DVT ppx: lovenox DC planning: Rehab unit tomorrow This patient was seen by Clay Anthony PA-C under the supervision of Dr. Ortega. <Spencer Ortega - Last Filed: 10/07/18 16:19> Subjective: Patient symptoms of dysarthria and facial droop improved. Mild slurring of his speech on NIH stroke scale. No focal weakness or change in sensation. MRI brain reported as acute left putamen and internal capsule small left lower infarct. The finding was discussed with the patient, his son present in the room. - Physical Exam General: Alert, Oriented x3, Cooperative HEENT: Atraumatic, PERRLA, EOMI, Normocephalic Neck: Supple, No JVD, Negative Carotid Bruits Lungs: Clear to auscultation, Normal air movement, No rhonchi, No wheeze, No rales Cardiovascular: Regular rate, Regular Rhythm, Normal S1, Normal S2, No murmurs Abdomen: Bowel Sounds Present, Soft, Non Tender, Non-Distended Extremities: No edema, Capillary Refill Less than 3 Seconds Skin: No rashes, No breakdown Musculoskeletal: No Tenderness to Palpation of Joints or Extremities, Arthritic Changes Neurological: Cranial nerves II-XII grossly intact, Neuro grossly intact, Motor Exam 5/5 strength throughout, Slurred Speech, - - NIHSS 1 FOR Language deficit. Psych/Mental Status: Normal Affect, Appropriate Vital Signs Temp Pulse Resp BP Pulse Ox 97.8 F 88 17 145/91 H 96 10/07/18 14:30 10/07/18 15:52 10/07/18 14:30 10/07/18 14:30 10/07/18 14:30 Oxygen Flow Rate (L/min) 3 Oxygen Delivery Method Room Air Weight: 160 lb 0.889 oz Body Mass Index (BMI) 25.0 Finger Stick Blood Glucose 231 Intake and Output for Last 24 Hours 10/05/18 10/06/18 10/07/18 23:59 23:59 23:59 Intake Total 480 / 480 2100 / 2100 Balance 480 / 480 2100 / 2100 Laboratory Tests Past 24 Hrs 10/06/18 10/06/18 10/06/18 16:04 16:04 16:04 WBC 6.7 RBC 4.90 Hgb 13.8 Hct 39.7 L MCV 81.0 MCH 28.2 MCHC 34.8 RDW 13.1 RDW Differential 38.9 Plt Count 197 MPV 9.4 Immature Gran % (Auto) 0.100 Neut % (Auto) 53.5 Lymph % (Auto) 30.7 [place] % (Auto) 10.6 H Eos % (Auto) 4.2 Baso % (Auto) 0.9 Absolute Neuts (auto) 3.6 Absolute Lymphs (auto) 2.06 Total Counted Not Reportable PT 13.3 INR 1.0 APTT 30.8 Sodium 132 L Potassium 3.9 Chloride 101 Carbon Dioxide 23.0 Anion Gap 8 BUN 13 Creatinine 0.95 Estim Creat Clear Calc 66.00 Est GFR (MDRD) Af Amer 99 Est GFR (MDRD) Non-Af 82 BUN/Creatinine Ratio 13.7 Glucose 237 H Hemoglobin A1c Calcium 9.2 Magnesium Troponin I < 0.015 Triglycerides Cholesterol LDL Cholesterol VLDL Cholesterol HDL Cholesterol TSH Urine Color Urine Clarity Urine pH Ur Specific [place] Urine Protein Urine Glucose (UA) Urine Ketones Urine Occult Blood Urine Nitrite Urine Bilirubin Urine Urobilinogen Ur Leukocyte Esterase Urine RBC Urine WBC Ur Squamous Epith Cells Urine Bacteria Urine Mucus 10/06/18 10/06/18 10/06/18 16:04 16:04 22:00 WBC RBC Hgb Hct MCV MCH MCHC RDW RDW Differential Plt Count MPV Immature Gran % (Auto) Neut % (Auto) Lymph % (Auto) [place] % (Auto) Eos % (Auto) Baso % (Auto) Absolute Neuts (auto) Absolute Lymphs (auto) Total Counted PT INR APTT Sodium Potassium Chloride Carbon Dioxide Anion Gap BUN Creatinine Estim Creat Clear Calc Est GFR (MDRD) Af Amer Est GFR (MDRD) Non-Af BUN/Creatinine Ratio Glucose Hemoglobin A1c 9.3 H Calcium Magnesium 1.7 Troponin I Triglycerides Cholesterol LDL Cholesterol VLDL Cholesterol HDL Cholesterol TSH 0.87 Urine Color Yellow Urine Clarity Clear Urine pH 6.0 Ur Specific [place] 1.010 Urine Protein 30 H Urine Glucose (UA) 250 H Urine Ketones 5 H Urine Occult Blood Negative Urine Nitrite Negative Urine Bilirubin Negative Urine Urobilinogen Normal Ur Leukocyte Esterase 25 H Urine RBC 0 SEEN Urine WBC 0-5 SEEN Ur Squamous Epith Cells 0 SEEN Urine Bacteria 0 SEEN Urine Mucus 0 SEEN 10/07/18 10/07/18 05:40 05:40 WBC RBC Hgb Hct MCV MCH MCHC RDW RDW Differential Plt Count MPV Immature Gran % (Auto) Neut % (Auto) Lymph % (Auto) [place] % (Auto) Eos % (Auto) Baso % (Auto) Absolute Neuts (auto) Absolute Lymphs (auto) Total Counted PT INR APTT Sodium 136 Potassium 4.0 Chloride 107 Carbon Dioxide 24.0 Anion Gap 5 BUN 13 Creatinine 0.84 Estim Creat Clear Calc 72.13 Est GFR (MDRD) Af Amer 115 Est GFR (MDRD) Non-Af 95 BUN/Creatinine Ratio 15.5 Glucose 230 H Hemoglobin A1c Calcium 8.2 L Magnesium Troponin I Triglycerides 128 Cholesterol 163 LDL Cholesterol 95 VLDL Cholesterol 26 HDL Cholesterol 42 TSH Urine Color Urine Clarity Urine pH Ur Specific [place] Urine Protein Urine Glucose (UA) Urine Ketones Urine Occult Blood Urine Nitrite Urine Bilirubin Urine Urobilinogen Ur Leukocyte Esterase Urine RBC Urine WBC Ur Squamous Epith Cells Urine Bacteria Urine Mucus POC Glucose 10/07/18 10/07/18 10/06/18 11:12 06:48 19:57 POC Glucose 181 H 222 H 187 H Assessment/Plan This patient was seen in conjunction with Clay LAGUNAS. I have independently interviewed and examined the patient and reviewed pertinent history, examination findings, laboratory and plan of management. I have reviewed the note and agree with the documented findings with the few additional points. In brief, patient is admitted for acute change in speech mildly slurred speech, facial droop but no focal weakness of extremities. Is consistent with clinical diagnosis of acute CVA. MRI brain reported as small acute infarct in the left internal capsule posterior limb and putamen. No intracranial hemorrhage. CT angiogram of head and neck does not show hemodynamically significant stenosis or aneurysm but atherosclerotic changes. Findings was discussed with the patient and his son and other family members present in the room. Echo is negative for interatrial shunt. EF 65% with a stable vascular disassociative of mild chronic diastolic heart failure. Mild MR. Mild TR. Normal left atrium. RVSP 28 mmHg. Physical therapy note reviewed and recommended inpatient rehab I have discussed my assessment with Clay LAGUNAS and orders have been reviewed. Clinical Impression(s) from Imaging Studies Brain CT 10/06/18 16:06 IMPRESSION: Stable central and cortical involutional changes Stable old mild deep white matter ischemic changes, no change from prior study. Incidentally noted are old right maxillary and right zygoma fractures. Chest X-Ray 10/06/18 16:06 IMPRESSION: Normal x-ray examination of the chest. Head CTA 10/06/18 16:06 IMPRESSION: Atherosclerotic changes without a demonstrated aneurysm or hemodynamically significant stenosis. Neck CTA 10/06/18 16:06 IMPRESSION: Atherosclerotic changes without a demonstrated aneurysm or hemodynamically significant stenosis. Brain MRI 10/07/18 08:10 IMPRESSION: IMPRESSION: Small acute infarct in the left internal capsule posterior limb and putamen. No intracranial hemorrhage. Chronic involutional changes as described above. Code Visit Inpatient E&M: [id number] [facility] Hosp L3
[2018-10-07 17:35] LABS: Bedside Glucose 240 mg/dL (70-110)
[2018-10-07] MEDS: Tamsulosin HCl 0.4 MG Capsule 0.8 MG PO (22:15)
[2018-10-07] MEDS: Atorvastatin Calcium 40 MG Tablet PO (22:16)
[2018-10-07 22:46] LABS: Bedside Glucose 228 mg/dL (70-110)
[2018-10-08 02:00] VITALS: BP 135/77; PULSE 63; RESP 16; TEMP 36.6; O2SAT 96
[2018-10-08 03:00] VITALS: PULSE 54
[2018-10-08] MEDS: 0.9% Normal Saline 1,000 ML 100 ML IV (04:14)
[2018-10-08 06:00] VITALS: BP 136/78; PULSE 63; RESP 16; TEMP 36.6; O2SAT 97
[2018-10-08] MEDS: Insulin Lispro 100 UNIT/ML INSULN.PEN SC ×2 (06:59→11:21)
[2018-10-08 07:09] VITALS: PULSE 75
[2018-10-08 07:11] LABS: Bedside Glucose 193 mg/dL (70-110)
[2018-10-08] MEDS: Famotidine 20 MG Tablet PO (09:01)
[2018-10-08] MEDS: Aspirin 81 MG TAB.CHEW PO (09:01)
[2018-10-08] MEDS: Enoxaparin 40 MG/0.4 ML Syringe SC (09:01)
[2018-10-08 09:15] VITALS: BP 163/84; PULSE 60; RESP 18; TEMP 36.5; O2SAT 96
--- NOTE | 2018-10-08 10:15 | DCINST_ITS ---
- Discharge Diagnoses Current Active Problems: Current Active and Chronic Problems CVA (cerebral vascular accident) (Acute) BPH (benign prostatic hyperplasia) (Chronic) Hyponatremia (Acute) You will use the following diet at home:: Calorie/Carbohydrate Controlled (specify 1200, 1400, etc) - 1800 ADA diet Allergies/Adverse Reactions: Allergies No Known Allergies Allergy (Verified 10/06/18 16:02) Medications to take at Discharge Tamsulosin HCl [Flomax] 0.8 mg PO QHS 04/25/15 Metformin(XR) [Glucophage Xr] 1,000 mg PO DAILY 10/06/18 traZODone [Desyrel] 50 mg PO DAILY 10/06/18 Aspirin [Aspirin, Baby] 81 mg PO DAILY@0800 tab.chew 10/08/18 Atorvastatin Calcium [Lipitor] 40 mg PO QHS tablet 10/08/18 Clopidogrel Bisulfate [Plavix] 75 mg PO DAILY #30 tablet 10/08/18 Glipizide 5 mg PO BID #0 10/08/18 Insulin Glargine [Lantus SoloStar Pen] 10 units SC DAILY pen 10/08/18 Insulin Lispro [Humalog KwikPen] See Protocol SC ACHS insuln.pen 10/08/18 The following prescriptions were given: Clopidogrel Bisulfate [Plavix] 75 mg PO DAILY #30 tablet Primary Care Physician: Diamond Acevedo MD [Primary Care Provider] - Please follow up with your Primary Care Physician in: in 2 week Test Results: Test results from this visit will be discussed in further detail at your follow- up appointment, if applicable. Please Follow Up With: Delfino Harden MD When: in 3-4 weeks
--- NOTE | 2018-10-08 10:15 | PCM.DC.SUM ---
Discharge Date and Diagnosis Date of Admission: 10/06/18 Date of Discharge: 10/08/18 - Primary Discharge Diagnosis Active and Suspected Problems CVA (cerebral vascular accident) (Acute) Hyponatremia (Acute) - Secondary Discharge Diagnosis Chronic Problems BPH (benign prostatic hyperplasia) (Chronic) Diastolic dysfunction, left ventricle (Chronic) Diabetes mellitus (Chronic) newly diagnosed, type II Ventral hernia (Chronic) Hospital Course and Treatment Operations: None Summary of Care Provided: The patient is a 73 year M is admitted for acute change in speech, mildly slurred speech, facial droop but no focal weakness of extremities. This is consistent with clinical diagnosis of acute CVA. MRI brain reported as small acute infarct in the left internal capsule posterior limb and putamen. No intracranial hemorrhage. CT angiogram of head and neck does not show hemodynamically significant stenosis or aneurysm but atherosclerotic changes. Findings was discussed with the patient and his son and other family members present in the room. Echo is negative for interatrial shunt. EF 65% with a stable vascular disassociative of mild chronic diastolic heart failure. Mild MR. Mild TR. Normal left atrium. RVSP 28 mmHg. Blood pressure is controlled and permissive hypertension range. TSH 0.87. A1c 9.3 elevated. Accu-Cheks are elevated, 228, 256. Metformin is on hold because of contrast exposure. On Lantus 10 units subcutaneous daily. Glipizide resumed 5 mg twice daily. Lipid profile reported as LDL 95, HDL 42, triglyceride 128. On Atorvastatin 40 mg daily The patient has other comorbidities including BPH on Flomax. Physical therapy note, OT and speech therapy note reviewed and recommended inpatient rehab Discharge medication reconciliation done. Discharge follow-up instructions completed. Discharge process discussed with the patient, his [id number] and all questions were answered to patient's satisfaction. Total time spent, exact 35 minutes on discharge meds reconciliation, examination, review of imaging and blood test and discussion with the patient on follow-up instructions. Patient is being discharged to acute inpatient rehab Subjective: Seen and examined. Patient does not have any new complaint. Patient has mild slurring of his speech/language deficit. Patient had a stroke work-up done. Imaging findings, echo, rehab and follow-up discussed with the patient and patient's [id number] present in the room - Physical Exam General: Alert, Oriented x3, Cooperative HEENT: Atraumatic, PERRLA, EOMI, Normocephalic Neck: Supple, No JVD, Negative Carotid Bruits Lungs: Clear to auscultation, Normal air movement, No rhonchi, No wheeze, No rales Cardiovascular: Regular rate, Regular Rhythm, Normal S1, Normal S2, No murmurs Abdomen: Bowel Sounds Present, Soft, Non Tender, Non-Distended Extremities: No edema, Capillary Refill Less than 3 Seconds Skin: No rashes, No breakdown Musculoskeletal: No Tenderness to Palpation of Joints or Extremities, Arthritic Changes Neurological: Cranial nerves II-XII grossly intact, Deep Tendon Reflexes 2+/4 and Symmetrical, - - Facial droop is resolved. Mild slurring of his speech/language deficit. Psych/Mental Status: Normal Affect, Appropriate Vital Signs Temp Pulse Resp BP Pulse Ox 97.7 F L 60 18 163/84 H 96 10/08/18 09:15 10/08/18 09:15 10/08/18 09:15 10/08/18 09:15 10/08/18 09:15 Oxygen Flow Rate (L/min) 3 Oxygen Delivery Method Room Air Weight: 160 lb 0.889 oz Body Mass Index (BMI) 25.0 Finger Stick Blood Glucose 231 Intake and Output for Last 24 Hours 10/06/18 10/07/18 10/08/18 23:59 23:59 23:59 Intake Total 480 / 480 3836 / 3836 566 / 566 Balance 480 / 480 3836 / 3836 566 / 566 POC Glucose 10/08/18 10/07/18 10/07/18 06:58 22:12 17:15 POC Glucose 193 H 228 H 240 H 10/07/18 11:12 POC Glucose 181 H Home Medications: Medications to take at Discharge Tamsulosin HCl [Flomax] 0.8 mg PO QHS 04/25/15 Metformin(XR) [Glucophage Xr] 1,000 mg PO DAILY 10/06/18 traZODone [Desyrel] 50 mg PO DAILY 10/06/18 Aspirin [Aspirin, Baby] 81 mg PO DAILY@0800 10/08/18 Atorvastatin Calcium [Lipitor] 40 mg PO QHS 10/08/18 Clopidogrel Bisulfate [Plavix] 75 mg PO DAILY 10/08/18 Glipizide 5 mg PO BID #0 10/08/18 Insulin Glargine [Lantus SoloStar Pen] 10 units SC DAILY 10/08/18 Insulin Lispro [Humalog KwikPen] See Protocol SC ACHS 10/08/18 Primary Care Physician: Diamond Acevedo MD [Primary Care Provider] - Please follow up with your Primary Care Physician in: in 2 week Please Follow Up With: Delfino Harden MD When: in 3-4 weeks Medical Necessity - Tobacco Use Smoking Status: Never smoker Tobacco Use: Non-smoker Meaningful Use Info Meaningful Use Diagnoses (Choose all that apply): Ischemic CVA - CVA Therapy Assessed for PT,OT and/or ST?: Yes - Ischemic Stroke Antithrombotic order at d/c?: Yes Dx of Atrial fib/flutter?: No Anticoagulant at discharge?: Yes Statins at discharge?: Yes Primary Dx Acute Ischemic CVA?: Yes IV tPA ordered during stay?: No Reason IV t-PA not ordered: Medical Contraindication Code Visit Inpatient E&M: [id number] Disch Hosp
[2018-10-08 11:25] LABS: Bedside Glucose 256 mg/dL (70-110)
--- NOTE | 2018-10-08 12:47 | NURSING ---
report called to nurse Gaines on the rehab unit.
[2018-10-08 13:07] VITALS: PULSE 75
--- NOTE | 2018-10-08 14:32 | PCM.HP.STD ---
Problem List (1) Debility Status: Acute (2) CVA (cerebral vascular accident) Status: Acute Qualifiers: Precerebral and cerebral artery: middle cerebral artery Laterality of affected vessel: left (3) BPH (benign prostatic hyperplasia) Status: Chronic (4) Diabetes mellitus Status: Chronic Qualifiers: Diabetes mellitus type: type 2 Comment: newly diagnosed, type II History of Present Illness Date of Admission: 10/08/18 Chief Complaint: Debility status post acute left MCA stroke The patient is a 73 year old M with PMH DM, BPH admitted to [facility] on 10/08/2018 with debility status post acute left MCA stroke, for greater than 3 hours therapy daily with a goal of returning back home at or near his prior level of functional independence. 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 TTE showed EF of 65%, normal left LA size, no PFO at present patient feels his speech almost at baseline, denies any headache, dizziness, visual disturbances, motor weakness or sensory loss at present. He lives with his son, does not use any cane or walker to ambulate, denies any frequent falls, does drive and does not need any assistance for his ADLs. He is not taking aspirin at baseline. He also denies taking his diabetes medications at home.] Past Medical History Past Medical History (Chronic Problems): Chronic Problems BPH (benign prostatic hyperplasia) (Chronic) Diastolic dysfunction, left ventricle (Chronic) Diabetes mellitus (Chronic) newly diagnosed, type II Ventral hernia (Chronic) Allergies No Known Allergies Allergy (Verified 10/06/18 16:02) Home Medications: Ambulatory Orders Medication Instructions Recorded Tamsulosin HCl [Flomax] 0.8 mg PO QHS 04/25/15 Metformin(XR) [Glucophage Xr] 1,000 mg PO DAILY 10/06/18 traZODone [Desyrel] 50 mg PO DAILY 10/06/18 Aspirin [Aspirin, Baby] 81 mg PO DAILY@0800 tab.chew 10/08/18 Atorvastatin Calcium [Lipitor] 40 mg PO QHS tablet 10/08/18 Clopidogrel Bisulfate [Plavix] 75 mg PO DAILY #30 tablet 10/08/18 Glipizide 5 mg PO BID #0 10/08/18 Insulin Glargine [Lantus SoloStar 10 units SC DAILY pen 10/08/18 Pen] Insulin Lispro [Humalog KwikPen] See Protocol [place] ACHS insuln.pen 10/08/18 Surgical History: no surgical history Psychiatric History: No pertinent psych hx Lives: With Family Smoking Status: Never smoker Tobacco Use: Non-smoker Alcohol: None Drugs: None - *Family History Maternal History Items: No pertinent history Paternal History Items: No pertinent history Sibling History Items: - - bells palsy - brother Review of Systems Constitutional: Reports: - - Complete ROS negative except as documented in HPI VTE Information - Inpt Only VTE Present on Admission: No VTE Mechan Device Prophylaxis: SCD's, Knee High ADITYA Hose VTE Pharm Prophylaxis ordered?: Yes - Physical Exam General: Alert HEENT: Atraumatic, Normocephalic Neck: Supple Lungs: Normal air movement Cardiovascular: Normal S1, Normal S2 Abdomen: Bowel Sounds Present Extremities: No cyanosis Neurological: - - consious, alert, AoAx3, Cn 2-12 grossly intact, power 5/5 both UE/LE, no sensory loss, no cerebellar signs, Reflexes + B/L B/S/T/K/A, gait deferred, no aphasia, NIHSS 0 at present, mRS 0 at baseline Psych/Mental Status: Normal Affect Vital Signs Temp Pulse Resp BP Pulse Ox 97.7 F L 75 18 163/84 H 96 10/08/18 09:15 10/08/18 13:07 10/08/18 09:15 10/08/18 09:15 10/08/18 09:15 Oxygen Flow Rate (L/min) 3 Oxygen Delivery Method Room Air Weight: 72.6 kg Body Mass Index (BMI) 25.0 Finger Stick Blood Glucose 231 Intake and Output for Last 24 Hours 10/06/18 10/07/18 10/08/18 23:59 23:59 23:59 Intake Total 480 / 480 3836 / 3836 1726 / 1726 Balance 480 / 480 3836 / 3836 1726 / 1726 POC Glucose 10/08/18 10/08/18 10/07/18 11:16 06:58 22:12 POC Glucose 256 H 193 H 228 H 10/07/18 17:15 POC Glucose 240 H Assessment/Plan All Active Problems CVA (cerebral vascular accident) (Acute) Hyponatremia (Acute) Debility (Acute) Chest pain (Acute) The patient is a 73 year old M with PMH DM, BPH admitted to [facility] on 10/08/2018 with debility status post acute left MCA stroke, for greater than 3 hours therapy daily with a goal of returning back home at or near his prior level of functional independence. 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 TTE showed EF of 65%, normal left LA size, no PFO, LDL?95, HbA1c?9.3. At present patient feels his speech almost at baseline, denies any headache, dizziness, visual disturbances, motor weakness or sensory loss at present. He lives with his son, does not use any cane or walker to ambulate, denies any frequent falls, does drive and does not need any assistance for his ADLs. He is not taking aspirin at baseline. He also denies taking his diabetes medications at home Plan ?PT for gait stability ?OT for ADLs ?Analgesics as needed ?Bowel protocol ?Acute left MCA stroke?on aspirin and Plavix. Dual antiplatelets for 3 weeks then switch to single antiplatelet with aspirin 81 mg p.o. once daily. On Lipitor 40 mg p.o. nightly. ?Recommend 30-day event recorder on discharge discharge ?DM?on glipizide, metformin and insulin. HbA1c 9.3, needs better blood sugar control and DM management. Recommend endocrinology consult and hospitalist consult for diabetes management ?BPH?on tamsulosin ?GI/DVT prophylaxis?on famotidine/enoxaparin, SCDs, ADITYA hose ?Fall precaution ?Further medical management per hospitalist recommendation, hospitalist consult ?Follow-up with PCP, neurology and endocrinology as outpatient on discharge Code Visit Inpatient E&M: 15728 Init Hosp L3
== END 2018-10-08 14:28 | DRG 65 ==
LOC: ED 16:48 → PCU 18:58
PROVIDERS: Physician Assistant; Admitting Provider Family Medicine; Emergency Provider Emergency Medicine; Family Provider Internal Medicine; PCP Internal Medicine; Referring Provider Family Medicine; Visit Provider Internal Medicine
DX: I63.9 Cerebral infarction, unspecified (principal); E87.1 Hypo-osmolality and hyponatremia; R47.01 Aphasia; R29.810 Facial weakness; R29.703 NIHSS score 3; N40.0 Benign prostatic hyperplasia without lower urinary tract symptoms; E11.65 Type 2 diabetes mellitus with hyperglycemia; Z79.84 Long term (current) use of oral hypoglycemic drugs; K43.9 Ventral hernia without obstruction or gangrene
CPT/HCPCS: 36415; 70450; 70496; 70498; 70551; 71045; 80048; 80061; 81001; 82962; 83036; 83735; 84443; 84484; 85025; 85610; 85730; 92507; 92523; 92610; 93005; 93306; 97163; 97165; 97802; 99285; J7030; J7040; Q9957; Q9967; A4216; C8929

== ENCOUNTER 2018-10-08 14:40 | Inpatient (IN) | payer MEDICARE, OTHER, SELFPAY ==
[2018-10-07 23:50] VITALS: BMI 25.0
[2018-10-08 14:53] VITALS: BP 144/90; PULSE 61; RESP 16; TEMP 36.6; O2SAT 96; BMI 25.5; BMI 72.6
--- NOTE | 2018-10-08 15:37 | NURSING ---
Aware of being a fall risk and must ask for staff assist and demonstrated call mckinnon use.
[2018-10-08] MEDS: glipiZIDE 5 MG Tablet PO (16:52)
[2018-10-08] MEDS: Clopidogrel Bisulfate 75 MG Tablet PO (16:52)
[2018-10-08 17:21] LABS: Bedside Glucose 187 mg/dL (70-110)
[2018-10-08] MEDS: Insulin Lispro 100 UNIT/ML INSULN.PEN SC (17:42)
--- NOTE | 2018-10-08 20:05 | NURSING ---
pt found up with alarm going off and walking towards br. Pt claims he cannot control urine and immediately has to go to br. Pt cleaned up by staff and gown, bed linens changed. Attends put on pt and pt repositioned in bed by staff. Family returned to bring pt food. Family alerted of safety precautions in place and concerns for pt being found Pt in bed reclining in bed with alarm attached, bed in lowest position, and family at bedside
[2018-10-08 20:08] VITALS: O2SAT 96
[2018-10-08 20:12] VITALS: BP 138/76; PULSE 72; RESP 17; TEMP 36.6; O2SAT 94
[2018-10-08 22:00] VITALS: PULSE 72; RESP 17
[2018-10-08] MEDS: Atorvastatin Calcium 40 MG Tablet PO (22:24)
[2018-10-08 22:25] LABS: Bedside Glucose 118 mg/dL (70-110)
[2018-10-08] MEDS: Tamsulosin HCl 0.4 MG Capsule 0.8 MG PO (22:25)
[2018-10-08] MEDS: traZODone 50 MG Tablet PO (22:25)
[2018-10-09] MEDS: Enoxaparin 40 MG/0.4 ML Syringe SC (05:58)
[2018-10-09 06:57] VITALS: O2SAT 94
[2018-10-09 07:00] VITALS: BP 141/91; PULSE 62; RESP 18; TEMP 36.6; O2SAT 94
[2018-10-09 07:02] LABS: Absolute Lymphocyte Count 1.51 X10^3/ul (0.83-4.51); Absolute Neutrophil Count 3.4 X10^3/uL (2.0-7.7); Basophil# 0.07 X10^3/uL; Basophil% 1.1 % (0-1); Eosinophil# 0.39 X10^3/uL; Eosinophils% 6.4 % (0-5); Hematocrit 37.7 % (40-54); Hemoglobin 13.3 g/dl (13.0-16.5); Lymphocyte # 1.51 X10^3/ul (4.0); Lymphocyte % 24.8 % (19-41); Mean Corp Hgb Conc 35.3 g/gl (32-36); Mean Corpuscular Hgb 28.4 pg (27.0-32.0); Mean Corpuscular Volume 80.6 fL (80-94); Mean Platelet Vol. 9.2 fl (6.2-12.0); Monocyte# 0.73 X10^3/uL; Neutrophil # 3.39 X10^3/uL (2.7-7.7); Neutrophil % 55.5 % (47-70); Platelet Count 190 K/mm3 (150-450); RBC Distribution Width CV 13.1 % (11.6-14.6); RBC Distribution Width SD 37.7 fl (35.1-43.9); Red Blood Count 4.68 M/mm3 (4.6-6.2); White Blood Count 6.1 K/mm3 (4.4-11.0)
[2018-10-09 07:05] LABS: POSITIVE COUNT NO; POSITIVE DIFFERENTIAL NO; POSITIVE MORPHOLOGY NO
[2018-10-09 08:08] LABS: ALB/GLOB Ratio 1.1 RATIO (0.9-2.4); AST(SGOT) 18 U/L (15-37); Alanine Aminotransfer ALT/SGPT 25 U/L (16-61); Albumin, Serum 3.3 g/dL (3.2-5.0); Alkaline Phosphatase 61 U/L (45-117); Anion Gap 8 (5-15); BUN 11 mg/dL (7-18); BUN/Creat Ratio 12.9 RATIO (10-20); Calcium,Total 8.7 mg/dL (8.5-10.1); Chloride 105 mmol/L (98-107); Creatinine, Serum 0.86 mg/dL (0.70-1.30); EST Glomerular Filtration Rate 93 mL/min (>60); Est Glom Filt Rate - Afr Amer 112 mL/min (>60); Estimated Creatinine Clearance 70.46 ml/min; Globulin 3.1 g/dL (2.2-4.2); Glucose 172 mg/dL (74-106); Potassium 3.6 mmol/L (3.5-5.1); Protein, Total 6.4 g/dL (6.4-8.2); Sodium Level 138 mmol/L (136-145)
[2018-10-09] MEDS: Insulin Lispro 100 UNIT/ML INSULN.PEN SC ×2 (08:16→16:37)
[2018-10-09] MEDS: glipiZIDE 5 MG Tablet PO ×2 (08:17→16:37)
[2018-10-09] MEDS: Aspirin 81 MG TAB.CHEW PO (08:17)
[2018-10-09] MEDS: Clopidogrel Bisulfate 75 MG Tablet PO (08:17)
[2018-10-09 08:20] LABS: Bedside Glucose 206 mg/dL (70-110)
[2018-10-09 10:24] VITALS: BP 136/75; PULSE 62
--- NOTE | 2018-10-09 11:29 | PCM.PN.NEU ---
Subjective: Per nursing staff no issues overnight. Per patient he slept good. - Physical Exam General: Alert, Oriented x3, Cooperative HEENT: Atraumatic, PERRLA Oral: Moist Mucosa Neck: Supple, No JVD Lungs: Clear to auscultation, Normal air movement Cardiovascular: Regular rate, Regular Rhythm, Normal S1, Normal S2 Abdomen: Bowel Sounds Present, Soft, Non Tender, Non-Distended Neurological: Cranial nerves II-XII grossly intact, Deep Tendon Reflexes 2+/4 and Symmetrical, Neuro grossly intact, Motor Exam 5/5 strength throughout Psych/Mental Status: Alert and oriented to time, place, person, mood and affect Vital Signs Temp Pulse Resp BP Pulse Ox 97.8 F 62 18 136/75 H 94 10/09/18 07:00 10/09/18 10:24 10/09/18 07:00 10/09/18 10:24 10/09/18 07:00 Oxygen Delivery Method Room Air Weight: 74 kg Body Mass Index (BMI) 25.5 Finger Stick Blood Glucose 231 Intake and Output for Last 24 Hours 10/07/18 10/08/18 10/09/18 23:59 23:59 23:59 Intake Total 240 / 240 Balance 240 / 240 Laboratory Tests Past 24 Hrs 10/09/18 10/09/18 06:43 06:43 WBC 6.1 RBC 4.68 Hgb 13.3 Hct 37.7 L MCV 80.6 MCH 28.4 MCHC 35.3 RDW 13.1 RDW Differential 37.7 Plt Count 190 MPV 9.2 Immature Gran % (Auto) 0.200 Neut % (Auto) 55.5 Lymph % (Auto) 24.8 Alexander % (Auto) 12.0 H Eos % (Auto) 6.4 H Baso % (Auto) 1.1 H Absolute Neuts (auto) 3.4 Absolute Lymphs (auto) 1.51 Total Counted Not Reportable Sodium 138 Potassium 3.6 Chloride 105 Carbon Dioxide 25.0 Anion Gap 8 BUN 11 Creatinine 0.86 Estim Creat Clear Calc 70.46 Est GFR (MDRD) Af Amer 112 Est GFR (MDRD) Non-Af 93 BUN/Creatinine Ratio 12.9 Glucose 172 H Calcium 8.7 Total Bilirubin 0.60 AST 18 ALT 25 Alkaline Phosphatase 61 Total Protein 6.4 Albumin 3.3 Globulin 3.1 Albumin/Globulin Ratio 1.1 POC Glucose 10/09/18 10/08/18 10/08/18 08:05 21:32 16:45 POC Glucose 206 H 118 H 187 H Medical Necessity - Tobacco Use Smoking Status: Never smoker Assessment/Plan All Active Problems CVA (cerebral vascular accident) (Acute) Hyponatremia (Acute) Debility (Acute) Chest pain (Acute) The patient is a 73 year old M with PMH DM, BPH admitted to [facility] on 10/08/2018 with debility status post acute left MCA stroke, for greater than 3 hours therapy daily with a goal of returning back home at or near his prior level of functional independence. 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 TTE showed EF of 65%, normal left LA size, no PFO, LDL?95, HbA1c?9.3. At present patient feels his speech almost at baseline, denies any headache, dizziness, visual disturbances, motor weakness or sensory loss at present. He lives with his son, does not use any cane or walker to ambulate, denies any frequent falls, does drive and does not need any assistance for his ADLs. He is not taking aspirin at baseline. He also denies taking his diabetes medications at home Plan ?PT for gait stability ?OT for ADLs -ST evaluation and treat if indicated ?Analgesics as needed ?Bowel protocol ?Acute left MCA stroke?on aspirin and Plavix. Dual antiplatelets for 3 weeks then switch to single antiplatelet with aspirin 81 mg p.o. once daily. On Lipitor 40 mg p.o. nightly. ?Recommend 30-day event recorder on discharge ?DM?on glipizide, metformin and insulin. HbA1c 9.3, needs better blood sugar control and DM management. Recommend endocrinology consult and hospitalist consult for diabetes management ?BPH?on tamsulosin ?GI/DVT prophylaxis?on famotidine/enoxaparin, SCDs, ADITYA hose ?Fall precaution ?Further medical management per hospitalist recommendation, hospitalist consult ?Follow-up with PCP, neurology and endocrinology as outpatient on discharge
--- NOTE | 2018-10-09 12:12 | PCM.RU.PYE ---
Admission Information Status Changes from Prescreening?: No changes Identified Actual Problem List:: Mobility Impaired, Self Care Deficit, Diabetes, Hyperglycemia Potential Problem List:: DVT, Bleeding, Infection, UTI, Aspiration, Falls, Skin Integrity, Depression Risk of Complications DVT: LMWH, ADITYA Hose, Sequential Compression Device Bleeding: Monitor Lab Values, Nursing to Teach Precautions for anti-coagulation therapy., Wound, if applicable, to be assessed every shift., Stroke patients assessed for lethargy or change in status. Infection: Clinical Staff to Monitor for S/S of infection:, S/S of infection include fever, redness, warmth, etc. Urinary Tract Infection: Monitor for frequency, burning, discomfort, or incontinence., Nursing will obtain urine sample for urinalysis and C&S when ordered. Aspiration: Clinical staff will monitor for coughing, drooling, congestion., Speech will evaluate swallowing and dsyphasia., Nursing will monitor patient swallowing during meals. Falls: Patient will be evaluated for Fall Precautions, Patient will be placed on Fall Precautions as indicated per protocol. Skin Breakdown: Nursing will assess skin daily using assessment tool., Nursing will place on Skin Breakdown Precautions as indicated. Pain: Clinical staff will assess patient's pain level per protocol., Medications will be given, if needed, and the pain level reassessed., Other methods: Massage, distraction, decrease stimulus, etc. used PRN. Plan of Care Patient requires physician specializing in physical medicine and rehab oversight to provide close medical supervision of rehab issues including: Pain Management, Sleep Problems, Bowel and Bladder, Medical and co-morbidity Management, DVT prophylaxis, Rehabilitation Leadership, Coordination of treatment team Patient needs Physical Therapy: For a minimum of 1 hour, At least 5 out of 7 days Patient needs Physical Therapy to improve:: Mobility, Mobility, Mobility, Strengthening, Transfers, Stretching, ROM, Endurance, Stairs, Gait, Balance Patient needs Occupational Therapy: For a minimum of 1 hour, At least 5 out of 7 days Patient needs Occupational Therapy to improve ADL's incl.: Eating, Grooming, Bathing, Dressing, Toileting, Toilet transfers, Community Reintegration, Higher functioning activities, Household tasks, Adaptive Equipment, Splinting, Other activities as determined Patient requires speech therapy: For a minimum of 1 hour, At least 5 out of 7 days Patient requires speech therapy for: Swallowing, Cognition, Language Skills, Compensatory Strategies Patient requires 06/01 Rehabilitation Nursing for: Pain Issues, Identifying and preventing risk factors, Monitoring and reporting current medical conditions, Assisting with ambulation, transfer, and all ADL's, Teaching patients about disease process and medications, Family teaching, Providing safe environment, Bowel and Bladder Issues, Skin integrity, Medication Management Patient needs Senior Research Executive/ Case Management for: Discharge Planning, Arranging Home Equipment or Services, Family Interventions Patient needs Dietary and Nutrition Services for: Adequate Nutrition, Nutritional Supplements, Nutritional Education Goals Patient will remain: free from falls, or injury at time of discharge. Patient will perform bed mobility at: MOD I level of assist. Patient will complete transfers from bed to chair at: MOD I level of assist. Patient will ambulate: 100 feet, with MOD I assist, with LRD Patient will complete upper body dressing at: MOD I level of assist. Patient will complete lower body dressing at: MOD I level of assist. Patient will complete toileting at: MOD I level of assist. Patient will perform bathing at: MOD I level of assist. Patient will complete grooming at: MOD I level of assist. Patient will complete home management skills at: MOD I level of assist. Patient will achieve: 12 stairs, at MOD I assist Patient will have pain level of: of 3 or less Patient's skin will: remain intact, free from infection. Patient will receive: adequate nutrition. Discharge Planning Pt Prognosis for Sig. Practical Improv. w/in Reasonable Time: Good Estimated Length of stay (days): 16 Anticipated D/C Destination: Home Was Preadmission Assessment Accurate?: Yes
[2018-10-09 12:30] LABS: Bedside Glucose 147 mg/dL (70-110)
--- NOTE | 2018-10-09 13:44 | CASEMGMT ---
Student social work psychosocial assessment reviewed. BRANDEN Llamas
--- NOTE | 2018-10-09 17:03 | PCM.PN.HOSP ---
Subjective: Seen and examined. His speech has improved. Denies dysarthria. Denies problem in finding words/pronunciation or vocalization. No dysphagia Vitals/I&O's: Vital Signs Temp Pulse Resp BP Pulse Ox 97.8 F 62 18 136/75 H 94 10/09/18 07:00 10/09/18 10:24 10/09/18 07:00 10/09/18 10:24 10/09/18 07:00 Oxygen Delivery Method Room Air Weight: 163 lb 2.273 oz Body Mass Index (BMI) 25.5 Finger Stick Blood Glucose 231 Intake and Output for Last 24 Hours 10/07/18 10/08/18 10/09/18 23:59 23:59 23:59 Intake Total 600 / 600 Balance 600 / 600 General: Alert, Oriented x3, Cooperative HEENT: Atraumatic, PERRLA, EOMI, Normocephalic Neck: Supple, No JVD, Negative Carotid Bruits Lungs: Clear to auscultation, Normal air movement, No wheeze Cardiovascular: Regular rate, Regular Rhythm, Normal S1, Normal S2, No murmurs Abdomen: Bowel Sounds Present, Soft, Non Tender, Non-Distended, No Hepato-splenomegaly Extremities: No edema, Capillary Refill Less than 3 Seconds Skin: No rashes, No breakdown Musculoskeletal: No Tenderness to Palpation of Joints or Extremities, Arthritic Changes Neurological: Cranial nerves II-XII grossly intact, Deep Tendon Reflexes 2+/4 and Symmetrical, Neuro grossly intact, Motor Exam 5/5 strength throughout Psych/Mental Status: Normal Affect, Appropriate Laboratory Results 10/08/18 16:45: POC Glucose 187 H 10/08/18 21:32: POC Glucose 118 H 10/09/18 06:43: WBC 6.1, RBC 4.68, Hgb 13.3, Hct 37.7 L, MCV 80.6, MCH 28.4, MCHC 35.3, RDW 13.1, RDW Differential 37.7, Plt Count 190, MPV 9.2, Immature Gran % (Auto) 0.200, Neut % (Auto) 55.5, Lymph % (Auto) 24.8, Darke % (Auto) 12.0 H, Eos % (Auto) 6.4 H, Baso % (Auto) 1.1 H, Absolute Neuts (auto) 3.4, Absolute Lymphs (auto) 1.51, Total Counted Not Reportable 10/09/18 06:43: Sodium 138, Potassium 3.6, Chloride 105, Carbon Dioxide 25.0, Anion Gap 8, BUN 11, Creatinine 0.86, Estim Creat Clear Calc 70.46, Est GFR (MDRD) Af Amer 112, Est GFR (MDRD) Non-Af 93, BUN/Creatinine Ratio 12.9, Glucose 172 H, Calcium 8.7, Total Bilirubin 0.60, AST 18, ALT 25, Alkaline Phosphatase 61, Total Protein 6.4, Albumin 3.3, Globulin 3.1, Albumin/Globulin Ratio 1.1 10/09/18 08:05: POC Glucose 206 H 10/09/18 12:07: POC Glucose 147 H Current Medications Acetaminophen (Tylenol) 650 mg PO Q6H PRN PRN PRN Reason: Mild Pain (0-3/10)/Headache Aspirin (Aspirin, Baby) 81 mg PO DAILY@0800 [facility] Last Admin: 10/09/18 08:17 Dose: 81 mg Atorvastatin Calcium (Lipitor) 40 mg PO QHS [facility] Last Admin: 10/08/18 22:24 Dose: 40 mg Bisacodyl (Dulcolax) 10 mg RECTAL .PRN X 1 PRN PRN Reason: Constipation Clopidogrel Bisulfate (Plavix) 75 mg PO DAILY [facility] Last Admin: 10/09/18 08:17 Dose: 75 mg Enoxaparin Sodium (Lovenox) 40 mg SC DAILY@0600 [facility] Last Admin: 10/09/18 05:58 Dose: 40 mg [facility]) [facility] Last Admin: 10/09/18 16:37 Dose: 5 mg Insulin Glargine (Lantus (Bkc)) 10 units SC DAILY [facility] Last Admin: 10/09/18 09:53 Dose: 10 u Insulin Human Lispro (Humalog Kwikpen (Bkc)) 0 unit SC [facility]; Protocol Last Admin: 10/09/18 16:37 Dose: 2 u Magnesium Hydroxide (Milk Of Magnesia) 30 ml PO .PRN X 1 PRN PRN Reason: Constipation Metformin HCl (Glucophage Xr) 1,000 mg PO DAILY@0800 [facility] Last Admin: 10/09/18 08:17 Dose: 1,000 mg Senna/Docusate Sodium (Senokot-S, Amelia-Colace) 2 tablet PO BID [facility] Last Admin: 10/09/18 08:17 Dose: Not Given Tamsulosin HCl (Flomax) 0.8 mg PO QHS [facility] Last Admin: 10/08/18 22:25 Dose: 0.8 mg Trazodone HCl (Desyrel) 50 mg PO DAILY@2200 [facility] Last Admin: 10/08/18 22:25 Dose: 50 mg Medical Necessity - Tobacco Use Smoking Status: Never smoker Assessment/Plan All Active Problems CVA (cerebral vascular accident) (Acute) Hyponatremia (Acute) Debility (Acute) Chest pain (Acute) The patient is a 73 year M is admitted for acute rehab secondary to small acute infarct in the left internal capsule, posterior limb and putamen. Patient is discharged from PCU after evaluation and management for acute change in speech, mildly slurred speech, facial droop but no focal weakness of extremities. MRI brain reported as small acute infarct in the left internal capsule posterior limb and putamen. No intracranial hemorrhage. CT angiogram of head and neck does not show hemodynamically significant stenosis or aneurysm but atherosclerotic changes. Echo is negative for interatrial shunt. EF 65% with stage I diastolic dysfunction suggestive of mild chronic diastolic heart failure. Mild MR. Mild TR. Normal left atrium. RVSP 28 mmHg. Blood pressure is controlled and permissive hypertension range. TSH 0.87. A1c 9.3 elevated. Accu-Cheks are elevated, 228, 256. Metformin was on hold because of contrast exposure. On Lantus 10 units subcutaneous daily. Glipizide resumed 5 mg twice daily. Lipid profile reported as LDL 95, HDL 42, triglyceride 128. On Atorvastatin 40 mg daily Impression and plan 1. 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 PT OT and speech evaluation. Avoid drop in systolic blood pressure less than 120 mmHg. Currently blood pressure is on goal 136/75. Echo reported as preserved EF. Negative bubble study. As mentioned above. TSH normal. 2. Diabetes mellitus type 2, with uncontrolled hyperglycemia-A1C 9.3. Patient is started on Lantus 10 units subcu at bedtime daily. Glucose is 1 18-1 47. On glipizide 5 mg twice daily. Metformin resumed. Follow-up glucose checks and titrate the dose of Lantus accordingly if needed 10 units of cutaneous twice daily. 3. Dyslipidemia:-continue lipitor high intensity dose. 4. BPH - flomax 5. Chronic diastolic heart failure with preserved EF: Patient heart rate is in 60s therefore beta-johana is not advisable. Start losartan 25 mg p.o. daily. Avoid hypotension, systolic blood pressure less than 120 mmHg 6. Hx Osteoarthritis DVT ppx: lovenox Active Medications Acetaminophen (Tylenol) 650 mg PO Q6H PRN PRN PRN Reason: Mild Pain (0-3/10)/Headache Aspirin (Aspirin, Baby) 81 mg PO DAILY@0800 [facility] Last Admin: 10/09/18 08:17 Dose: 81 mg Atorvastatin Calcium (Lipitor) 40 mg PO QHS [facility] Last Admin: 10/08/18 22:24 Dose: 40 mg Bisacodyl (Dulcolax) 10 mg RECTAL .PRN X 1 PRN PRN Reason: Constipation Clopidogrel Bisulfate (Plavix) 75 mg PO DAILY [facility] Last Admin: 10/09/18 08:17 Dose: 75 mg Enoxaparin Sodium (Lovenox) 40 mg SC DAILY@0600 [facility] Last Admin: 10/09/18 05:58 Dose: 40 mg [facility] ([facility]) [facility] Last Admin: 10/09/18 16:37 Dose: 5 mg Insulin Glargine (Lantus (Bkc)) 10 units SC DAILY [facility] Last Admin: 10/09/18 09:53 Dose: 10 u Insulin Human Lispro (Humalog Kwikpen (Bkc)) 0 unit SC [facility]; Protocol Last Admin: 10/09/18 16:37 Dose: 2 u Magnesium Hydroxide (Milk Of Magnesia) 30 ml PO .PRN X 1 PRN PRN Reason: Constipation Metformin HCl (Glucophage Xr) 1,000 mg PO DAILY@0800 [facility] Last Admin: 10/09/18 08:17 Dose: 1,000 mg Senna/Docusate Sodium (Senokot-S, Amelia-Colace) 2 tablet PO BID [facility] Last Admin: 10/09/18 08:17 Dose: Not Given Tamsulosin HCl (Flomax) 0.8 mg PO QHS [facility] Last Admin: 10/08/18 22:25 Dose: 0.8 mg Trazodone HCl (Desyrel) 50 mg PO DAILY@2200 [facility] Last Admin: 10/08/18 22:25 Dose: 50 mg Code Visit Inpatient E&M: 03515 Subs Hosp L3
--- NOTE | 2018-10-09 17:11 | PN_ITS ---
Subjective: Seen and examined. His speech has improved. Denies dysarthria. Denies problem in finding words/pronunciation or vocalization. No dysphagia Vitals/I&O's: Vital Signs Temp Pulse Resp BP Pulse Ox 97.8 F 62 18 136/75 H 94 10/09/18 07:00 10/09/18 10:24 10/09/18 07:00 10/09/18 10:24 10/09/18 07:00 Oxygen Delivery Method Room Air Weight: 163 lb 2.273 oz Body Mass Index (BMI) 25.5 Finger Stick Blood Glucose 231 Intake and Output for Last 24 Hours 10/07/18 10/08/18 10/09/18 23:59 23:59 23:59 Intake Total 600 / 600 Balance 600 / 600 General: Alert, Oriented x3, Cooperative HEENT: Atraumatic, PERRLA, EOMI, Normocephalic Neck: Supple, No JVD, Negative Carotid Bruits Lungs: Clear to auscultation, Normal air movement, No wheeze Cardiovascular: Regular rate, Regular Rhythm, Normal S1, Normal S2, No murmurs Abdomen: Bowel Sounds Present, Soft, Non Tender, Non-Distended, No Hepato- splenomegaly Extremities: No edema, Capillary Refill Less than 3 Seconds Skin: No rashes, No breakdown Musculoskeletal: No Tenderness to Palpation of Joints or Extremities, Arthritic Changes Neurological: Cranial nerves II-XII grossly intact, Deep Tendon Reflexes 2+/4 and Symmetrical, Neuro grossly intact, Motor Exam 5/5 strength throughout Psych/Mental Status: Normal Affect, Appropriate Laboratory Results 10/08/18 16:45: POC Glucose 187 H 10/08/18 21:32: POC Glucose 118 H 10/09/18 06:43: WBC 6.1, RBC 4.68, Hgb 13.3, Hct 37.7 L, MCV 80.6, MCH 28.4, MCHC 35.3, RDW 13.1, RDW Differential 37.7, Plt Count 190, MPV 9.2, Immature Gran % (Auto) 0.200, Neut % (Auto) 55.5, Lymph % (Auto) 24.8, [place] % (Auto) 12.0 H, Eos % (Auto) 6.4 H, Baso % (Auto) 1.1 H, Absolute Neuts (auto) 3.4, Absolute Lymphs (auto) 1.51, Total Counted Not Reportable 10/09/18 06:43: Sodium 138, Potassium 3.6, Chloride 105, Carbon Dioxide 25.0, Anion Gap 8, BUN 11, Creatinine 0.86, Estim Creat Clear Calc 70.46, Est GFR (MDRD) Af Amer 112, Est GFR (MDRD) Non-Af 93, BUN/Creatinine Ratio 12.9, Glucose 172 H, Calcium 8.7, Total Bilirubin 0.60, AST 18, ALT 25, Alkaline Phosphatase 61, Total Protein 6.4, Albumin 3.3, Globulin 3.1, Albumin/Globulin Ratio 1.1 10/09/18 08:05: POC Glucose 206 H 10/09/18 12:07: POC Glucose 147 H Current Medications Acetaminophen (Tylenol) 650 mg PO Q6H PRN PRN PRN Reason: Mild Pain (0-3/10)/Headache Aspirin (Aspirin, Baby) 81 mg PO DAILY@0800 [facility] Last Admin: 10/09/18 08:17 Dose: 81 mg Atorvastatin Calcium (Lipitor) 40 mg PO QHS [facility] Last Admin: 10/08/18 22:24 Dose: 40 mg Bisacodyl (Dulcolax) 10 mg RECTAL .PRN X 1 PRN PRN Reason: Constipation Clopidogrel Bisulfate (Plavix) 75 mg PO DAILY [facility] Last Admin: 10/09/18 08:17 Dose: 75 mg Enoxaparin Sodium (Lovenox) 40 mg SC DAILY@0600 [facility] Last Admin: 10/09/18 05:58 Dose: 40 mg [facility] Last Admin: 10/09/18 16:37 Dose: 5 mg Insulin Glargine (Lantus (Bkc)) 10 units SC DAILY [facility] Last Admin: 10/09/18 09:53 Dose: 10 u Insulin Human Lispro (Humalog Kwikpen (Bkc)) 0 unit SC [facility]; Protocol Last Admin: 10/09/18 16:37 Dose: 2 u Magnesium Hydroxide (Milk Of Magnesia) 30 ml PO .PRN X 1 PRN PRN Reason: Constipation Metformin HCl (Glucophage Xr) 1,000 mg PO DAILY@0800 [facility] Last Admin: 10/09/18 08:17 Dose: 1,000 mg Senna/Docusate Sodium (Senokot-S, Amelia-Colace) 2 tablet PO BID [facility] Last Admin: 10/09/18 08:17 Dose: Not Given Tamsulosin HCl (Flomax) 0.8 mg PO QHS [facility] Last Admin: 10/08/18 22:25 Dose: 0.8 mg Trazodone HCl (Desyrel) 50 mg PO DAILY@2200 [facility] Last Admin: 10/08/18 22:25 Dose: 50 mg Medical Necessity - Tobacco Use Smoking Status: Never smoker Assessment/Plan All Active Problems CVA (cerebral vascular accident) (Acute) Hyponatremia (Acute) Debility (Acute) Chest pain (Acute) The patient is a 73 year M is admitted for acute rehab secondary to small acute infarct in the left internal capsule, posterior limb and putamen. Patient is discharged from PCU after evaluation and management for acute change in speech, mildly slurred speech, facial droop but no focal weakness of extremities. MRI brain reported as small acute infarct in the left internal capsule posterior limb and putamen. No intracranial hemorrhage. CT angiogram of head and neck does not show hemodynamically significant stenosis or aneurysm but atherosclerotic changes. Echo is negative for interatrial shunt. EF 65% with stage I diastolic dysfunction suggestive of mild chronic diastolic heart failure. Mild MR. Mild TR. Normal left atrium. RVSP 28 mmHg. Blood pressure is controlled and permissive hypertension range. TSH 0.87. A1c 9.3 elevated. Accu-Cheks are elevated, 228, 256. Metformin was on hold because of contrast exposure. On Lantus 10 units subcutaneous daily. Glipizide resumed 5 mg twice daily. Lipid profile reported as LDL 95, HDL 42, triglyceride 128. On Atorvastatin 40 mg daily Impression and plan 1. 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 PT OT and speech evaluation. Avoid drop in systolic blood pressure less than 120 mmHg. Currently blood pressure is on goal 136/75. Echo reported as preserved EF. Negative bubble study. As mentioned above. TSH normal. 2. Diabetes mellitus type 2, with uncontrolled hyperglycemia-A1C 9.3. Patient is started on Lantus 10 units subcu at bedtime daily. Glucose is 1 18-1 47. On glipizide 5 mg twice daily. Metformin resumed. Follow-up glucose checks and titrate the dose of Lantus accordingly if needed 10 units of cutaneous twice daily. 3. Dyslipidemia:-continue lipitor high intensity dose. 4. BPH - flomax 5. Chronic diastolic heart failure with preserved EF: Patient heart rate is in 60s therefore beta-johana is not advisable. Start losartan 25 mg p.o. daily. Avoid hypotension, systolic blood pressure less than 120 mmHg 6. Hx Osteoarthritis DVT ppx: lovenox Active Medications Acetaminophen (Tylenol) 650 mg PO Q6H PRN PRN PRN Reason: Mild Pain (0-3/10)/Headache Aspirin (Aspirin, Baby) 81 mg PO DAILY@0800 [facility] Last Admin: 10/09/18 08:17 Dose: 81 mg Atorvastatin Calcium (Lipitor) 40 mg PO QHS [facility] Last Admin: 10/08/18 22:24 Dose: 40 mg Bisacodyl (Dulcolax) 10 mg RECTAL .PRN X 1 PRN PRN Reason: Constipation Clopidogrel Bisulfate (Plavix) 75 mg PO DAILY [facility] Last Admin: 10/09/18 08:17 Dose: 75 mg Enoxaparin Sodium (Lovenox) 40 mg SC DAILY@0600 [facility] Last Admin: 10/09/18 05:58 Dose: 40 mg [facility]) [facility] Last Admin: 10/09/18 16:37 Dose: 5 mg Insulin Glargine (Lantus (Bkc)) 10 units SC DAILY [facility] Last Admin: 10/09/18 09:53 Dose: 10 u Insulin Human Lispro (Humalog Kwikpen (Bkc)) 0 unit SC [facility]; Protocol Last Admin: 10/09/18 16:37 Dose: 2 u Magnesium Hydroxide (Milk Of Magnesia) 30 ml PO .PRN X 1 PRN PRN Reason: Constipation Metformin HCl (Glucophage Xr) 1,000 mg PO DAILY@0800 [facility] Last Admin: 10/09/18 08:17 Dose: 1,000 mg Senna/Docusate Sodium (Senokot-S, Amelia-Colace) 2 tablet PO BID [facility] Last Admin: 10/09/18 08:17 Dose: Not Given Tamsulosin HCl (Flomax) 0.8 mg PO QHS [facility] Last Admin: 10/08/18 22:25 Dose: 0.8 mg Trazodone HCl (Desyrel) 50 mg PO DAILY@2200 [facility] Last Admin: 10/08/18 22:25 Dose: 50 mg Code Visit Inpatient E&M: 03865 Subs Hosp L3
[2018-10-09 17:16] LABS: Bedside Glucose 161 mg/dL (70-110)
[2018-10-09 21:01] LABS: Bedside Glucose 118 mg/dL (70-110)
[2018-10-09] MEDS: traZODone 50 MG Tablet PO (21:22)
[2018-10-09] MEDS: Tamsulosin HCl 0.4 MG Capsule 0.8 MG PO (21:22)
[2018-10-09] MEDS: Atorvastatin Calcium 40 MG Tablet PO (21:22)
[2018-10-09] MEDS: Senna/Docusate Sodium 1 Tablet 2 TABLET PO (21:24)
[2018-10-09 21:43] VITALS: BP 139/92; PULSE 62; RESP 18; TEMP 36.7; O2SAT 94
[2018-10-10] MEDS: Enoxaparin 40 MG/0.4 ML Syringe SC (05:31)
[2018-10-10 06:35] LABS: Bedside Glucose 154 mg/dL (70-110)
[2018-10-10 06:53] VITALS: O2SAT 95
[2018-10-10 07:00] VITALS: BP 145/93; PULSE 69; RESP 22; TEMP 36.6; O2SAT 92
[2018-10-10] MEDS: glipiZIDE 5 MG Tablet PO ×2 (07:50→17:37)
[2018-10-10] MEDS: Losartan Potassium 25 MG Tablet PO (07:50)
[2018-10-10] MEDS: Clopidogrel Bisulfate 75 MG Tablet PO (07:50)
[2018-10-10] MEDS: Aspirin 81 MG TAB.CHEW PO (07:51)
[2018-10-10] MEDS: Insulin Lispro 100 UNIT/ML INSULN.PEN SC ×2 (07:55→21:39)
[2018-10-10 12:31] LABS: Bedside Glucose 122 mg/dL (70-110)
[2018-10-10 18:51] LABS: Bedside Glucose 116 mg/dL (70-110)
[2018-10-10 20:46] LABS: Bedside Glucose 150 mg/dL (70-110)
[2018-10-10 21:38] VITALS: BP 154/91; PULSE 96; RESP 20; TEMP 36.6; O2SAT 95
[2018-10-10] MEDS: Senna/Docusate Sodium 1 Tablet 2 TABLET PO (21:38)
[2018-10-10] MEDS: Atorvastatin Calcium 40 MG Tablet PO (21:38)
[2018-10-10] MEDS: Tamsulosin HCl 0.4 MG Capsule 0.8 MG PO (21:39)
[2018-10-10] MEDS: traZODone 50 MG Tablet PO (21:39)
[2018-10-10 21:43] VITALS: BP 141/80; PULSE 73
[2018-10-11] MEDS: Enoxaparin 40 MG/0.4 ML Syringe SC (05:42)
[2018-10-11 06:16] LABS: Bedside Glucose 127 mg/dL (70-110)
[2018-10-11 07:00] VITALS: BP 122/62
[2018-10-11 07:20] VITALS: BP 113/68; PULSE 67; RESP 18; TEMP 36.4; O2SAT 93
[2018-10-11 07:24] VITALS: O2SAT 94
[2018-10-11] MEDS: Clopidogrel Bisulfate 75 MG Tablet PO (07:30)
[2018-10-11] MEDS: Losartan Potassium 25 MG Tablet PO (07:31)
[2018-10-11] MEDS: glipiZIDE 5 MG Tablet PO ×2 (07:31→17:03)
[2018-10-11] MEDS: Aspirin 81 MG TAB.CHEW PO (07:31)
[2018-10-11] MEDS: Acetaminophen 325 MG Tablet 650 MG PO (08:16)
--- NOTE | 2018-10-11 10:58 | PCM.PN.HOSP ---
Subjective: Patient seen and examined. He had no complaints. Review of systems otherwise negative. Vitals reviewed. Vitals/I&O's: Vital Signs Temp Pulse Resp BP Pulse Ox 97.5 F L 67 18 113/68 94 10/11/18 07:20 10/11/18 07:20 10/11/18 07:20 10/11/18 07:20 10/11/18 07:24 Oxygen Delivery Method Room Air Weight: 163 lb 2.273 oz Body Mass Index (BMI) 25.5 Finger Stick Blood Glucose 231 Intake and Output for Last 24 Hours 10/09/18 10/10/18 10/11/18 23:59 23:59 23:59 Intake Total 600 / 600 720 / 720 Output Total 150 / 150 Balance 450 / 450 720 / 720 General: Alert, Oriented x3, Cooperative, No apparent distress HEENT: Atraumatic, PERRLA, EOMI, Normocephalic Oral: Moist Mucosa Neck: Supple, No JVD, Negative Carotid Bruits Lungs: Clear to auscultation, Normal air movement, No rhonchi, No wheeze, No rales Cardiovascular: Regular rate, Regular Rhythm, Normal S1, Normal S2, No murmurs Abdomen: Bowel Sounds Present, Soft, Non Tender Extremities: No clubbing, No cyanosis, No edema, Capillary Refill Less than 3 Seconds Skin: No rashes, No breakdown Musculoskeletal: No Tenderness to Palpation of Joints or Extremities Lymphatic: No Cervical, Supraclavicular, or Inguinal Adenopathy Neurological: Cranial nerves II-XII grossly intact, - - power 4/5 in RUE, power 5.5 in all other extremities Psych/Mental Status: Normal Affect, Appropriate, Alert and oriented to time, place, person, mood and affect Laboratory Results 10/10/18 11:57: POC Glucose 122 H 10/10/18 16:59: POC Glucose 116 H 10/10/18 20:24: POC Glucose 150 H 10/11/18 06:07: POC Glucose 127 H Current Medications Acetaminophen (Tylenol) 650 mg PO Q6H PRN PRN PRN Reason: Mild Pain (0-3/10)/Headache Last Admin: 10/11/18 08:16 Dose: 650 mg Aspirin (Aspirin, Baby) 81 mg PO DAILY@0800 [facility] Last Admin: 10/11/18 07:31 Dose: 81 mg Atorvastatin Calcium (Lipitor) 40 mg PO QHS [facility] Last Admin: 10/10/18 21:38 Dose: 40 mg Bisacodyl (Dulcolax) 10 mg RECTAL .PRN X 1 PRN PRN Reason: Constipation Clopidogrel Bisulfate (Plavix) 75 mg PO DAILY [facility] Last Admin: 10/11/18 07:30 Dose: 75 mg Enoxaparin Sodium (Lovenox) 40 mg SC DAILY@0600 [facility] Last Admin: 10/11/18 05:42 Dose: 40 mg [facility]) [facility] Last Admin: 10/11/18 07:31 Dose: 5 mg Insulin Glargine (Lantus (Bkc)) 10 units SC DAILY [facility] Last Admin: 10/11/18 07:32 Dose: 10 u Insulin Human Lispro (Humalog Kwikpen (Bkc)) 0 unit SC [facility]; Protocol Last Admin: 10/11/18 07:30 Dose: Not Given Losartan Potassium (Cozaar) 25 mg PO DAILY [facility] Last Admin: 10/11/18 07:31 Dose: 25 mg Magnesium Hydroxide (Milk Of Magnesia) 30 ml PO .PRN X 1 PRN PRN Reason: Constipation Metformin HCl (Glucophage Xr) 1,000 mg PO DAILY@0800 [facility] Last Admin: 10/11/18 07:31 Dose: 1,000 mg Senna/Docusate Sodium (Senokot-S, Amelia-Colace) 2 tablet PO BID [facility] Last Admin: 10/11/18 07:32 Dose: Not Given Tamsulosin HCl (Flomax) 0.8 mg PO QHS [facility] Last Admin: 10/10/18 21:39 Dose: 0.8 mg Trazodone HCl (Desyrel) 50 mg PO DAILY@2200 [facility] Last Admin: 10/10/18 21:39 Dose: 50 mg Medical Necessity - Tobacco Use Smoking Status: Never smoker Assessment/Plan All Active Problems CVA (cerebral vascular accident) (Acute) Hyponatremia (Acute) Debility (Acute) Chest pain (Acute) 1. Acute ischemic infarct of left internal capsule PT/OT on board speech therapy on board on aspirin, plavix and atorvastatin. 2. Type 2 diabetes mellitus A1C was 9.3 On Lantus 10 units nightly and glipizide 5 mg twice daily. Also metformin. Insulin sliding scale. Accu-Chek cc at bedtime. 3. Dyslipidemia: On high intensity atorvastatin 40 mg nightly. 4. BPH: Flomax. 5. Heart failure with preserved ejection fraction: Chronic. EF is 65%, with stage 1 diastolic dysfunction. On losartan. 6. Osteoarthritis: Stable DVT prophylaxis: Lovenox Code Visit Inpatient E&M: 92966 Subs Hosp L2
--- NOTE | 2018-10-11 11:01 | PN_ITS ---
Subjective: Patient seen and examined. He had no complaints. Review of systems otherwise negative. Vitals reviewed. Vitals/I&O's: Vital Signs Temp Pulse Resp BP Pulse Ox 97.5 F L 67 18 113/68 94 10/11/18 07:20 10/11/18 07:20 10/11/18 07:20 10/11/18 07:20 10/11/18 07:24 Oxygen Delivery Method Room Air Weight: 163 lb 2.273 oz Body Mass Index (BMI) 25.5 Finger Stick Blood Glucose 231 Intake and Output for Last 24 Hours 10/09/18 10/10/18 10/11/18 23:59 23:59 23:59 Intake Total 600 / 600 720 / 720 Output Total 150 / 150 Balance 450 / 450 720 / 720 General: Alert, Oriented x3, Cooperative, No apparent distress HEENT: Atraumatic, PERRLA, EOMI, Normocephalic Oral: Moist Mucosa Neck: Supple, No JVD, Negative Carotid Bruits Lungs: Clear to auscultation, Normal air movement, No rhonchi, No wheeze, No rales Cardiovascular: Regular rate, Regular Rhythm, Normal S1, Normal S2, No murmurs Abdomen: Bowel Sounds Present, Soft, Non Tender Extremities: No clubbing, No cyanosis, No edema, Capillary Refill Less than 3 Seconds Skin: No rashes, No breakdown Musculoskeletal: No Tenderness to Palpation of Joints or Extremities Lymphatic: No Cervical, Supraclavicular, or Inguinal Adenopathy Neurological: Cranial nerves II-XII grossly intact, - - power 4/5 in RUE, power 5.5 in all other extremities Psych/Mental Status: Normal Affect, Appropriate, Alert and oriented to time, place, person, mood and affect Laboratory Results 10/10/18 11:57: POC Glucose 122 H 10/10/18 16:59: POC Glucose 116 H 10/10/18 20:24: POC Glucose 150 H 10/11/18 06:07: POC Glucose 127 H Current Medications Acetaminophen (Tylenol) 650 mg PO Q6H PRN PRN PRN Reason: Mild Pain (0-3/10)/Headache Last Admin: 10/11/18 08:16 Dose: 650 mg Aspirin (Aspirin, Baby) 81 mg PO DAILY@0800 [facility] Last Admin: 10/11/18 07:31 Dose: 81 mg Atorvastatin Calcium (Lipitor) 40 mg PO QHS [facility] Last Admin: 10/10/18 21:38 Dose: 40 mg Bisacodyl (Dulcolax) 10 mg RECTAL .PRN X 1 PRN PRN Reason: Constipation Clopidogrel Bisulfate (Plavix) 75 mg PO DAILY [facility] Last Admin: 10/11/18 07:30 Dose: 75 mg Enoxaparin Sodium (Lovenox) 40 mg SC DAILY@0600 [facility] Last Admin: 10/11/18 05:42 Dose: 40 [facility] Last Admin: 10/11/18 07:31 Dose: 5 mg Insulin Glargine (Lantus (Bkc)) 10 units SC DAILY [facility] Last Admin: 10/11/18 07:32 Dose: 10 u Insulin Human Lispro (Humalog Kwikpen (Bkc)) 0 unit SC [facility]; Protocol Last Admin: 10/11/18 07:30 Dose: Not Given Losartan Potassium (Cozaar) 25 mg PO DAILY [facility] Last Admin: 10/11/18 07:31 Dose: 25 mg Magnesium Hydroxide (Milk Of Magnesia) 30 ml PO .PRN X 1 PRN PRN Reason: Constipation Metformin HCl (Glucophage Xr) 1,000 mg PO DAILY@0800 [facility] Last Admin: 10/11/18 07:31 Dose: 1,000 mg Senna/Docusate Sodium (Senokot-S, Amelia-Colace) 2 tablet PO BID [facility] Last Admin: 10/11/18 07:32 Dose: Not Given Tamsulosin HCl (Flomax) 0.8 mg PO QHS [facility] Last Admin: 10/10/18 21:39 Dose: 0.8 mg Trazodone HCl (Desyrel) 50 mg PO DAILY@2200 [facility] Last Admin: 10/10/18 21:39 Dose: 50 mg Medical Necessity - Tobacco Use Smoking Status: Never smoker Assessment/Plan All Active Problems CVA (cerebral vascular accident) (Acute) Hyponatremia (Acute) Debility (Acute) Chest pain (Acute) 1. Acute ischemic infarct of left internal capsule * PT/OT on board * speech therapy on board * on aspirin, plavix and atorvastatin. * 2. Type 2 diabetes mellitus * A1C was 9.3 * On Lantus 10 units nightly and glipizide 5 mg twice daily. Also metformin. * Insulin sliding scale. Accu-Chek cc at bedtime. * 3. Dyslipidemia: On high intensity atorvastatin 40 mg nightly. 4. BPH: Flomax. 5. Heart failure with preserved ejection fraction: Chronic. EF is 65%, with stage 1 diastolic dysfunction. On losartan. 6. Osteoarthritis: Stable DVT prophylaxis: Lovenox Code Visit Inpatient E&M: 80254 Subs Hosp L2
[2018-10-11 11:45] LABS: Bedside Glucose 159 mg/dL (70-110)
[2018-10-11] MEDS: Insulin Lispro 100 UNIT/ML INSULN.PEN SC ×2 (11:59→21:44)
[2018-10-11 15:52] VITALS: BMI 25.5
[2018-10-11 17:16] LABS: Bedside Glucose 95 mg/dL (70-110)
--- NOTE | 2018-10-11 17:33 | NURSING ---
Offered to ambulate with pt around hallways x2, pt refused stating I think I'm just going to rest today.
[2018-10-11 21:27] VITALS: BP 123/93; PULSE 87; RESP 16; TEMP 36.6; O2SAT 95
--- NOTE | 2018-10-11 21:30 | NURSING ---
PT FOUND IN ROOM WALKING OUT OF BATHROOM. PT HAS REMOVED HIS SCDS AND PA. PT REFUSING TO PUT SLIPPERS ON AT THIS TIME.PT INFORMED THAT HE IS TO USE CALL LIGHT WHENEVER HE WANTS TO GET OUT OF BED. PT ASSURES THAT HE WILL DO THIS. PT STATES HE HAS HX OF URGENCY OF URINATION WHICH HE HAD AT HOME. PT OFFERED URINAL TO KEEP ON BEDSIDE TABLE, PT ACCEPTS THIS OFFER.
[2018-10-11] MEDS: Senna/Docusate Sodium 1 Tablet 2 TABLET PO (21:43)
[2018-10-11] MEDS: Atorvastatin Calcium 40 MG Tablet PO (21:43)
[2018-10-11] MEDS: Tamsulosin HCl 0.4 MG Capsule 0.8 MG PO (21:45)
[2018-10-11] MEDS: traZODone 50 MG Tablet PO (21:46)
[2018-10-11 21:53] VITALS: BP 140/92; PULSE 82
[2018-10-11 22:30] LABS: Bedside Glucose 196 mg/dL (70-110)
[2018-10-12 05:00] VITALS: BMI 25.5
[2018-10-12 06:46] LABS: Bedside Glucose 120 mg/dL (70-110)
[2018-10-12] MEDS: Enoxaparin 40 MG/0.4 ML Syringe SC (07:03)
[2018-10-12 07:21] VITALS: BP 112/72; PULSE 71; RESP 16; TEMP 36.6; O2SAT 92
--- NOTE | 2018-10-12 10:37 | PCM.PN.NEU ---
Subjective: Per nursing staff patient is having difficulty starting stream during urination. PVR's area unremarkable. Patient stated since his stroke that he is having difficulty and prolong time to start urinating. Patient denies burning, pain during urination and or blood in urine. Patient also is having mild pain to right should, denies injury or falls onto right shoulder. PRN Tylenol and K-Pad has been effective in providing relief. - Physical Exam General: Alert, Oriented x3, Cooperative HEENT: Atraumatic, PERRLA Oral: Moist Mucosa Neck: Supple, No JVD Lungs: Clear to auscultation, Normal air movement Cardiovascular: Regular rate, Regular Rhythm, Normal S1, Normal S2 Abdomen: Bowel Sounds Present, Soft, Non Tender Extremities: No clubbing, No cyanosis, No edema Musculoskeletal: - - right shoulder ROM WNL, mild tenderness upon palpation and movement to right shoulder Neurological: Cranial nerves II-XII grossly intact, Deep Tendon Reflexes 2+/4 and Symmetrical, Neuro grossly intact, Motor Exam 5/5 strength throughout Psych/Mental Status: Normal Affect, Appropriate, Alert and oriented to time, place, person, mood and affect Vital Signs Temp Pulse Resp BP Pulse Ox 97.9 F 71 16 112/72 92 10/12/18 07:21 10/12/18 07:21 10/12/18 07:21 10/12/18 07:21 10/12/18 07:21 Oxygen Delivery Method Room Air Weight: 74 kg Body Mass Index (BMI) 25.5 Finger Stick Blood Glucose 231 Intake and Output for Last 24 Hours 10/10/18 10/11/18 10/12/18 23:59 23:59 23:59 Intake Total 720 / 720 Output Total 200 / 200 Balance 720 / 720 -200 / -200 POC Glucose 10/12/18 10/11/18 10/11/18 06:39 21:28 16:49 POC Glucose 120 H 196 H 95 10/11/18 11:38 POC Glucose 159 H Medical Necessity - Tobacco Use Smoking Status: Never smoker Tobacco Use: Non-smoker Assessment/Plan All Active Problems CVA (cerebral vascular accident) (Acute) Hyponatremia (Acute) Debility (Acute) Chest pain (Acute) The patient is a 73 year old M with PMH DM, BPH admitted to [facility] on 10/08/2018 with debility status post acute left MCA stroke, for greater than 3 hours therapy daily with a goal of returning back home at or near his prior level of functional independence. 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 TTE showed EF of 65%, normal left LA size, no PFO, LDL?95, HbA1c?9.3. At present patient feels his speech almost at baseline, denies any headache, dizziness, visual disturbances, motor weakness or sensory loss at present. He lives with his son, does not use any cane or walker to ambulate, denies any frequent falls, does drive and does not need any assistance for his ADLs. He is not taking aspirin at baseline. He also denies taking his diabetes medications at home. Dysuria will obtain UA and if negative, will start Flomax. K--Pad to left shoulder PRN for mild pain after therapies and continue Tylenol PRN. Plan ?PT for gait stability ?OT for ADLs -ST evaluation and treat if indicated ?Analgesics as needed ?Bowel protocol ?Acute left MCA stroke?on aspirin and Plavix. Dual antiplatelets for 3 weeks then switch to single antiplatelet with aspirin 81 mg p.o. once daily. On Lipitor 40 mg p.o. nightly. ?Recommend 30-day event recorder on discharge ?DM?on glipizide, metformin and insulin. HbA1c 9.3, needs better blood sugar control and DM management. Recommend endocrinology consult and hospitalist consult for diabetes management ?BPH?on tamsulosin ?GI/DVT prophylaxis?on famotidine/enoxaparin, SCDs, ADITYA hose ?Fall precaution ?Further medical management per hospitalist recommendation, hospitalist consult ?Follow-up with PCP, neurology and endocrinology as outpatient on discharge
[2018-10-12] MEDS: glipiZIDE 5 MG Tablet PO ×2 (10:46→18:18)
[2018-10-12] MEDS: Losartan Potassium 25 MG Tablet PO (10:46)
[2018-10-12] MEDS: Clopidogrel Bisulfate 75 MG Tablet PO (10:46)
[2018-10-12] MEDS: Aspirin 81 MG TAB.CHEW PO (10:46)
[2018-10-12] MEDS: Senna/Docusate Sodium 1 Tablet 2 TABLET PO (10:47)
--- NOTE | 2018-10-12 10:52 | PN.NEURO_ITS ---
Subjective: Per nursing staff patient is having difficulty starting stream during urination. PVR's area unremarkable. Patient stated since his stroke that he is having difficulty and prolong time to start urinating. Patient denies burning, pain during urination and or blood in urine. Patient also is having mild pain to right should, denies injury or falls onto right shoulder. PRN Tylenol and K-Pad has been effective in providing relief. - Physical Exam General: Alert, Oriented x3 HEENT: Atraumatic, PERRLA Oral: Moist Mucosa Neck: Supple, No JVD Lungs: Clear to auscultation, Normal air movement Cardiovascular: Regular rate, Regular Rhythm, Normal S1, Normal S2 Abdomen: Bowel Sounds Present, Soft, Non Tender Extremities: No clubbing, No cyanosis, No edema Musculoskeletal: - - mild tenderness upon palpation of right shoulder, ROM WNL Neurological: Cranial nerves II-XII grossly intact, Deep Tendon Reflexes 2+/4 and Symmetrical, Neuro grossly intact, Motor Exam 5/5 strength throughout Psych/Mental Status: Normal Affect, Alert and oriented to time, place, person, mood and affect Vital Signs Temp Pulse Resp BP Pulse Ox 97.9 F 71 16 112/72 92 10/12/18 07:21 10/12/18 07:21 10/12/18 07:21 10/12/18 07:21 10/12/18 07:21 Oxygen Delivery Method Room Air Weight: 74 kg Body Mass Index (BMI) 25.5 Finger Stick Blood Glucose 231 Intake and Output for Last 24 Hours 10/10/18 10/11/18 10/12/18 23:59 23:59 23:59 Intake Total 720 / 720 Output Total 200 / 200 Balance 720 / 720 -200 / -200 POC Glucose 10/12/18 10/11/18 10/11/18 06:39 21:28 16:49 POC Glucose 120 H 196 H 95 10/11/18 11:38 POC Glucose 159 H Medical Necessity - Tobacco Use Smoking Status: Never smoker Tobacco Use: Non-smoker Assessment/Plan All Active Problems CVA (cerebral vascular accident) (Acute) Hyponatremia (Acute) Debility (Acute) Chest pain (Acute) The patient is a 73 year old M with PMH DM, BPH admitted to [facility] on 10/08/2018 with debility status post acute left MCA stroke, for greater than 3 hours therapy daily with a goal of returning back home at or near his prior level of functional independence. 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 TTE showed EF of 65%, normal left LA size, no PFO, LDL?95, HbA1c?9.3. At present patient feels his speech almost at baseline, denies any headache, dizziness, visual disturbances, motor weakness or sensory loss at present. He lives with his son, does not use any cane or walker to ambulate, denies any frequent falls, does drive and does not need any assistance for his ADLs. He is not taking aspirin at baseline. He also denies taking his diabetes medications at home. Dysuria will obtain UA. K--Pad to left shoulder PRN for mild pain after therapies and continue Tylenol PRN. Plan ?PT for gait stability ?OT for ADLs -ST evaluation and treat if indicated ?Analgesics as needed ?Bowel protocol ?Acute left MCA stroke?on aspirin and Plavix. Dual antiplatelets for 3 weeks then switch to single antiplatelet with aspirin 81 mg p.o. once daily. On Lipitor 40 mg p.o. nightly. ?Recommend 30-day event recorder on discharge ?DM?on glipizide, metformin and insulin. HbA1c 9.3, needs better blood sugar control and DM management. Recommend endocrinology consult and hospitalist consult for diabetes management ?BPH?on tamsulosin ?GI/DVT prophylaxis?on famotidine/enoxaparin, SCDs, ADITYA hose ?Fall precaution ?Further medical management per hospitalist recommendation, hospitalist consult ?Follow-up with PCP, neurology and endocrinology as outpatient on discharge
[2018-10-12 11:26] VITALS: BMI 25.5
[2018-10-12 12:10] LABS: Bedside Glucose 192 mg/dL (70-110)
[2018-10-12 12:23] LABS: Bacteria 0 SEEN /hpf (None Seen); Mucous, Urine 0 SEEN /hpf (<or=2+)
[2018-10-12] MEDS: Insulin Lispro 100 UNIT/ML INSULN.PEN SC ×2 (12:54→21:02)
[2018-10-12 13:00] LABS: Color, Urine Yellow (Yellow); Glucose, Dipstick 250 mg/dl (Normal); Ketone-Dipstick 5 mg/dl (Negative); Leukocyte Esterase-Dipstick 500 /ul (Negative); Nitrite-Dipstick Negative (Negative); Occult Blood-Urine 25 /ul (Negative); Protein-Dipstick 30 mg/dl (Negative); Urine Bilirubin Dipstick Negative (Negative); Urine Clarity Clear (Clear); Urine Urobilinogen Normal (Normal)
[2018-10-12 13:05] LABS: Red Blood Cells-Urine 0-5 SEEN /hpf (0-5); White Blood Cells 5-10 SEEN /hpf (0-5)
[2018-10-12 13:06] LABS: Squamous Epithelial Cells - UA 0-5 SEEN /hpf (0-5)
--- NOTE | 2018-10-12 17:38 | PN_ITS ---
Subjective: Patient is doing good with PT, OT and speech/swallow evaluation and treatment. There is improvement in his speech. No chest pain or shortness of breath. Objective: General: Alert, Oriented x3, Cooperative HEENT: Atraumatic, PERRLA, EOMI, Normocephalic Neck: Supple, No JVD, Negative Carotid Bruits Lungs: Clear to auscultation, Normal air movement, No wheeze Cardiovascular: Regular rate, Regular Rhythm, Normal S1, Normal S2, No murmurs Abdomen: Bowel Sounds Present, Soft, Non Tender, Non-Distended, No Hepato- splenomegaly Extremities: No edema, Capillary Refill Less than 3 Seconds Skin: No rashes, No breakdown Musculoskeletal: No Tenderness to Palpation of Joints or Extremities, Arthritic Changes Neurological: Cranial nerves II-XII grossly intact, Deep Tendon Reflexes 2+/4 and Symmetrical, Neuro grossly intact, Motor Exam 5/5 strength throughout Psych/Mental Status: Normal Affect, Appropriate Vitals/I&O's: Vital Signs Temp Pulse Resp BP Pulse Ox 97.9 F 71 16 112/72 92 10/12/18 07:21 10/12/18 07:21 10/12/18 07:21 10/12/18 07:21 10/12/18 07:21 Oxygen Delivery Method Room Air Weight: 163 lb 2.273 oz Body Mass Index (BMI) 25.5 Finger Stick Blood Glucose 231 Intake and Output for Last 24 Hours 10/10/18 10/11/18 10/12/18 23:59 23:59 23:59 Intake Total 720 / 720 Output Total 200 / 200 Balance 720 / 720 -200 / -200 Laboratory Results 10/11/18 21:28: POC Glucose 196 H 10/12/18 06:39: POC Glucose 120 H 10/12/18 11:59: POC Glucose 192 H 10/12/18 12:10: Urine Color Yellow, Urine Clarity Clear, Urine pH 5.0, Ur Specific [place] 1.020, Urine Protein 30 H, Urine Glucose (UA) 250 H, Urine Ketones 5 H, Urine Occult Blood 25 H, Urine Nitrite Negative, Urine Bilirubin Negative, Urine Urobilinogen Normal, Ur Leukocyte Esterase 500 H, Urine RBC 0-5 SEEN, Urine WBC 5-10 SEEN, Ur Squamous Epith Cells 0-5 SEEN, Urine Bacteria 0 SEEN, Urine Mucus 0 SEEN Current Medications Acetaminophen (Tylenol) 650 mg PO Q6H PRN PRN PRN Reason: Mild Pain (0-3/10)/Headache Last Admin: 10/11/18 08:16 Dose: 650 mg Aspirin (Aspirin, Baby) 81 mg PO DAILY@0800 [facility] Last Admin: 10/12/18 10:46 Dose: 81 mg Atorvastatin Calcium (Lipitor) 40 mg PO QHS [facility] Last Admin: 10/11/18 21:43 Dose: 40 mg Bisacodyl (Dulcolax) 10 mg RECTAL .PRN X 1 PRN PRN Reason: Constipation Clopidogrel Bisulfate (Plavix) 75 mg PO DAILY [facility] Last Admin: 10/12/18 10:46 Dose: 75 mg Enoxaparin Sodium (Lovenox) 40 mg SC DAILY@0600 [facility] Last Admin: 10/12/18 07:03 Dose: 40 mg [facility] Last Admin: 10/12/18 10:46 Dose: 5 mg Insulin Glargine (Lantus (Bkc)) 10 units SC DAILY [facility] Last Admin: 10/12/18 10:46 Dose: 10 u Insulin Human Lispro (Humalog Kwikpen (Bkc)) 0 unit SC [facility]; Protocol Last Admin: 10/12/18 12:54 Dose: 2 u Losartan Potassium (Cozaar) 25 mg PO DAILY [facility] Last Admin: 10/12/18 10:46 Dose: 25 mg Magnesium Hydroxide (Milk Of Magnesia) 30 ml PO .PRN X 1 PRN PRN Reason: Constipation Metformin HCl (Glucophage Xr) 1,000 mg PO DAILY@0800 [facility] Last Admin: 10/12/18 10:46 Dose: 1,000 mg Senna/Docusate Sodium (Senokot-S, Amelia-Colace) 2 tablet PO BID [facility] Last Admin: 10/12/18 10:47 Dose: 2 tablet Tamsulosin HCl (Flomax) 0.8 mg PO QHS [facility] Last Admin: 10/11/18 21:45 Dose: 0.8 mg Trazodone HCl (Desyrel) 50 mg PO DAILY@2200 [facility] Last Admin: 10/11/18 21:46 Dose: 50 mg Medical Necessity - Tobacco Use Smoking Status: Never smoker Tobacco Use: Non-smoker Assessment/Plan All Active Problems CVA (cerebral vascular accident) (Acute) Hyponatremia (Acute) Debility (Acute) Chest pain (Acute) The patient is a 73 year M is admitted for acute rehab secondary to small acute infarct in the left internal capsule, posterior limb and putamen. Patient is discharged from PCU after evaluation and management for acute change in speech, mildly slurred speech, facial droop but no focal weakness of extremities. MRI brain reported as small acute infarct in the left internal capsule posterior limb and putamen. No intracranial hemorrhage. CT angiogram of head and neck does not show hemodynamically significant stenosis or aneurysm but atherosclerotic changes. Echo is negative for interatrial shunt. EF 65% with stage I diastolic dysfunction suggestive of mild chronic diastolic heart failure. Mild MR. Mild TR. Normal left atrium. RVSP 28 mmHg. Blood pressure is controlled and permissive hypertension range. TSH 0.87. A1c 9.3 elevated. Accu-Cheks are elevated, 228, 256. Metformin was on hold because of contrast exposure. On Lantus 10 units subcutaneous daily. Glipizide resumed 5 mg twice daily. Lipid profile reported as LDL 95, HDL 42, triglyceride 128. On Atorvastatin 40 mg daily Impression and plan 1. 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 PT OT and speech evaluation. Hold antihypertensive medication if systolic blood pressure less than 120 mmHg. Echo reported as preserved EF. Negative bubble study. As mentioned above. TSH normal. 2. Diabetes mellitus type 2, with uncontrolled hyperglycemia-A1C 9.3. Patient is started on Lantus 10 units subcu at bedtime daily. Glucose is 1 18-1 47. On glipizide 5 mg twice daily. Metformin resumed. Follow-up glucose checks and titrate the dose of Lantus accordingly if needed 10 units of cutaneous twice daily. Accu-Cheks are between 100- 150 mg/dL. 3. Dyslipidemia:-continue lipitor high intensity dose. 4. BPH - flomax 5. Chronic diastolic heart failure with preserved EF: Patient heart rate is in 60s therefore beta-johana is not advisable. Start losartan 25 mg p.o. daily. Avoid hypotension, systolic blood pressure less than 120 mmHg 6. Hx Osteoarthritis DVT ppx: lovenox Laboratory Results 10/12/18 17:09: POC Glucose 118 H 10/12/18 20:59: POC Glucose 163 H 10/13/18 06:44: POC Glucose 135 H 10/13/18 12:05: POC Glucose 134 H Active Medications Acetaminophen (Tylenol) 650 mg PO Q6H PRN PRN PRN Reason: Mild Pain (0-3/10)/Headache Last Admin: 10/11/18 08:16 Dose: 650 mg Aspirin (Aspirin, Baby) 81 mg PO DAILY@0800 [facility] Last Admin: 10/13/18 08:50 Dose: 81 mg Atorvastatin Calcium (Lipitor) 40 mg PO QHS [facility] Last Admin: 10/12/18 21:02 Dose: 40 mg Bisacodyl (Dulcolax) 10 mg RECTAL .PRN X 1 PRN PRN Reason: Constipation Clopidogrel Bisulfate (Plavix) 75 mg PO DAILY [facility] Last Admin: 10/13/18 08:50 Dose: 75 mg Enoxaparin Sodium (Lovenox) 40 mg SC DAILY@0600 [facility] Last Admin: 10/13/18 06:41 Dose: 40 mg [facility]) [facility] Last Admin: 10/13/18 08:50 Dose: 5 mg Insulin Glargine (Lantus (Bkc)) 10 units SC DAILY [facility] Last Admin: 10/13/18 08:51 Dose: 10 u Insulin Human Lispro (Humalog Kwikpen (Bkc)) 0 unit SC [facility]; Protocol Last Admin: 10/13/18 12:25 Dose: Not Given Losartan Potassium (Cozaar) 25 mg PO DAILY [facility] Last Admin: 10/13/18 10:47 Dose: 25 mg Magnesium Hydroxide (Milk Of Magnesia) 30 ml PO .PRN X 1 PRN PRN Reason: Constipation Metformin HCl (Glucophage Xr) 1,000 mg PO DAILY@0800 [facility] Last Admin: 10/13/18 08:50 Dose: 1,000 mg Senna/Docusate Sodium (Senokot-S, Amelia-Colace) 2 tablet PO BID [facility] Last Admin: 10/13/18 08:52 Dose: Not Given Tamsulosin HCl (Flomax) 0.8 mg PO QHS [facility] Last Admin: 10/12/18 21:02 Dose: 0.8 mg Trazodone HCl (Desyrel) 50 mg PO DAILY@2200 [facility] Last Admin: 04/29/19 21:02 Dose: 50 mg Code Visit Inpatient E&M: 11117 Subs Hosp L2
[2018-10-12 17:45] LABS: Bedside Glucose 118 mg/dL (70-110)
[2018-10-12 20:38] VITALS: BP 147/108; PULSE 83; RESP 16; TEMP 36.6; O2SAT 95
[2018-10-12 20:43] VITALS: BMI 25.5
[2018-10-12] MEDS: traZODone 50 MG Tablet PO (21:02)
[2018-10-12] MEDS: Atorvastatin Calcium 40 MG Tablet PO (21:02)
[2018-10-12] MEDS: Tamsulosin HCl 0.4 MG Capsule 0.8 MG PO (21:02)
[2018-10-12 21:06] LABS: Bedside Glucose 163 mg/dL (70-110)
[2018-10-12 22:00] VITALS: PULSE 83; RESP 18; O2SAT 96
[2018-10-13] MEDS: Enoxaparin 40 MG/0.4 ML Syringe SC (06:41)
[2018-10-13 07:06] LABS: Bedside Glucose 135 mg/dL (70-110)
[2018-10-13] MEDS: Clopidogrel Bisulfate 75 MG Tablet PO (08:50)
[2018-10-13] MEDS: Aspirin 81 MG TAB.CHEW PO (08:50)
[2018-10-13] MEDS: glipiZIDE 5 MG Tablet PO ×2 (08:50→17:46)
[2018-10-13 08:53] VITALS: BP 120/73; PULSE 74; RESP 16; TEMP 36.7; O2SAT 97
--- NOTE | 2018-10-13 09:49 | PN.NEURO_ITS ---
Subjective: Per nursing no issues overnight. Per patient no further hesitancy or dysuria with urination, denies burning, pain during urination or blood noted. - Physical Exam General: Alert, Oriented x3, Cooperative HEENT: Atraumatic, PERRLA, EOMI, Normocephalic Oral: Moist Mucosa Neck: Supple, No JVD, Negative Carotid Bruits Lungs: Clear to auscultation, Normal air movement Cardiovascular: Regular rate, Regular Rhythm, Normal S1, Normal S2 Abdomen: Bowel Sounds Present, Soft, Non Tender Extremities: No edema, Capillary Refill Less than 3 Seconds Musculoskeletal: No Tenderness to Palpation of Joints or Extremities Neurological: Cranial nerves II-XII grossly intact, Neuro grossly intact, Motor Exam 5/5 strength throughout Psych/Mental Status: Normal Affect, Appropriate, Alert and oriented to time, place, person, mood and affect Vital Signs Temp Pulse Resp BP Pulse Ox 98.0 F 74 16 120/73 97 10/13/18 08:53 10/13/18 08:53 10/13/18 08:53 10/13/18 08:53 10/13/18 08:53 Oxygen Delivery Method Room Air Weight: 74 kg Body Mass Index (BMI) 25.5 Finger Stick Blood Glucose 231 Intake and Output for Last 24 Hours 10/11/18 10/12/18 10/13/18 23:59 23:59 23:59 Output Total 200 / 200 250 / 250 Balance -200 / -200 -250 / -250 Laboratory Tests Past 24 Hrs 10/12/18 12:10 Urine Color Yellow Urine Clarity Clear Urine pH 5.0 Ur Specific [place] 1.020 Urine Protein 30 H Urine Glucose (UA) 250 H Urine Ketones 5 H Urine Occult Blood 25 H Urine Nitrite Negative Urine Bilirubin Negative Urine Urobilinogen Normal Ur Leukocyte Esterase 500 H Urine RBC 0-5 SEEN Urine WBC 5-10 SEEN Ur Squamous Epith Cells 0-5 SEEN Urine Bacteria 0 SEEN Urine Mucus 0 SEEN POC Glucose 10/13/18 10/12/18 10/12/18 06:44 20:59 17:09 POC Glucose 135 H 163 H 118 H 10/12/18 11:59 POC Glucose 192 H Medical Necessity - Tobacco Use Smoking Status: Never smoker Tobacco Use: Non-smoker Assessment/Plan All Active Problems CVA (cerebral vascular accident) (Acute) Hyponatremia (Acute) Debility (Acute) Chest pain (Acute) The patient is a 73 year old M with PMH DM, BPH admitted to [facility] on 10/08/2018 with debility status post acute left MCA stroke, for greater than 3 hours therapy daily with a goal of returning back home at or near his prior level of functional independence. 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 TTE showed EF of 65%, normal left LA size, no PFO, LDL?95, HbA1c?9.3. At present patient feels his speech almost at baseline, denies any headache, dizziness, visual disturbances, motor weakness or sensory loss at present. He lives with his son, does not use any cane or walker to ambulate, denies any frequent falls, does drive and does not need any assistance for his ADLs. He is not taking aspirin at baseline. He also denies taking his diabetes medications at home. UA obtained, see above for results, CX pending. Denies any further symptoms. . Plan ?PT for gait stability ?OT for ADLs -ST evaluation and treat if indicated ?Analgesics as needed ?Bowel protocol ?Acute left MCA stroke?on aspirin and Plavix. Dual antiplatelets for 3 weeks then switch to single antiplatelet with aspirin 81 mg p.o. once daily. On Lip itor 40 mg p.o. nightly. ?Recommend 30-day event recorder on discharge ?DM?on glipizide, metformin and insulin. HbA1c 9.3, needs better blood sugar control and DM management. Recommend endocrinology consult and hospitalist consult for diabetes management ?BPH?on tamsulosin ?GI/DVT prophylaxis?on famotidine/enoxaparin, SCDs, ADITYA lujan ?Fall precaution ?Further medical management per hospitalist recommendation, hospitalist consult ?Follow-up with PCP, neurology and endocrinology as outpatient on discharge
[2018-10-13 10:47] VITALS: BP 141/87; PULSE 71
[2018-10-13] MEDS: Losartan Potassium 25 MG Tablet PO (10:47)
[2018-10-13 12:30] LABS: Bedside Glucose 134 mg/dL (70-110)
[2018-10-13 16:36] VITALS: BMI 25.5
[2018-10-13 17:50] LABS: Bedside Glucose 116 mg/dL (70-110)
[2018-10-13 19:46] VITALS: BP 154/71; PULSE 82; RESP 18; TEMP 37.1; O2SAT 95
[2018-10-13] MEDS: Atorvastatin Calcium 40 MG Tablet PO (21:09)
[2018-10-13] MEDS: traZODone 50 MG Tablet PO (21:09)
[2018-10-13] MEDS: Tamsulosin HCl 0.4 MG Capsule 0.8 MG PO (21:09)
[2018-10-13 21:15] VITALS: BMI 25.5
[2018-10-13 21:51] LABS: Bedside Glucose 140 mg/dL (70-110)
[2018-10-13 22:00] VITALS: PULSE 82; RESP 18; O2SAT 95
[2018-10-14] MEDS: Enoxaparin 40 MG/0.4 ML Syringe SC (06:34)
[2018-10-14] MEDS: Insulin Lispro 100 UNIT/ML INSULN.PEN SC ×3 (07:55→22:08)
[2018-10-14] MEDS: Aspirin 81 MG TAB.CHEW PO (07:56)
[2018-10-14] MEDS: Clopidogrel Bisulfate 75 MG Tablet PO (07:56)
[2018-10-14] MEDS: Losartan Potassium 25 MG Tablet PO (07:56)
[2018-10-14] MEDS: glipiZIDE 5 MG Tablet PO ×2 (07:56→17:22)
[2018-10-14 08:11] LABS: Bedside Glucose 151 mg/dL (70-110)
[2018-10-14] MEDS: Senna/Docusate Sodium 1 Tablet 2 TABLET PO (09:55)
[2018-10-14 10:00] VITALS: BP 137/84; PULSE 83; RESP 18; TEMP 36.5; O2SAT 93
--- NOTE | 2018-10-14 11:10 | PCM.PN.NEU ---
Subjective: Per nursing no issues overnight. Patient continues to deny further hesitancy or dysuria with urination, denies burning, pain during urination or blood noted. Per patient requesting further glucose monitoring education. Nursing staff provided and will continue to provide education with family and patient. - Physical Exam General: Alert, Oriented x3 HEENT: Atraumatic, PERRLA Oral: Moist Mucosa Neck: Supple, No JVD Lungs: Clear to auscultation Cardiovascular: Regular rate, Regular Rhythm Abdomen: Bowel Sounds Present, Soft, Non Tender Extremities: No edema, Capillary Refill Less than 3 Seconds Musculoskeletal: No Tenderness to Palpation of Joints or Extremities Neurological: Cranial nerves II-XII grossly intact, Deep Tendon Reflexes 2+/4 and Symmetrical, Neuro grossly intact, Motor Exam 5/5 strength throughout Psych/Mental Status: Normal Affect, Appropriate, Alert and oriented to time, place, person, mood and affect Vital Signs Temp Pulse Resp BP Pulse Ox 97.7 F L 83 18 137/84 H 93 10/14/18 10:00 10/14/18 10:00 10/14/18 10:00 10/14/18 10:00 10/14/18 10:00 Oxygen Delivery Method Room Air Weight: 72.3 kg Body Mass Index (BMI) 25.5 Finger Stick Blood Glucose 231 Intake and Output for Last 24 Hours 10/12/18 10/13/18 10/14/18 23:59 23:59 23:59 Intake Total 480 / 480 Output Total 250 / 250 Balance -250 / -250 480 / 480 Microbiology Past 72 Hours 10/12/18 12:10 Urine Culture - Final Urine, Random Mixed Gram Pos & Gram Neg Org POC Glucose 10/14/18 10/13/18 10/13/18 07:47 21:08 17:44 POC Glucose 151 H 140 H 116 H 10/13/18 12:05 POC Glucose 134 H Medical Necessity - Tobacco Use Smoking Status: Never smoker Tobacco Use: Non-smoker Assessment/Plan All Active Problems CVA (cerebral vascular accident) (Acute) Hyponatremia (Acute) Debility (Acute) Chest pain (Acute) The patient is a 73 year old M with PMH DM, BPH admitted to [facility] on 10/08/2018 with debility status post acute left MCA stroke, for greater than 3 hours therapy daily with a goal of returning back home at or near his prior level of functional independence. 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 TTE showed EF of 65%, normal left LA size, no PFO, LDL?95, HbA1c?9.3. At present patient feels his speech almost at baseline, denies any headache, dizziness, visual disturbances, motor weakness or sensory loss at present. He lives with his son, does not use any cane or walker to ambulate, denies any frequent falls, does drive and does not need any assistance for his ADLs. He is not taking aspirin at baseline. He also denies taking his diabetes medications at home. UA obtained, see above for results, CX 1,000-10,0000 mixed gram + and - organisms. Denies any further symptoms. . Plan ?PT for gait stability ?OT for ADLs -ST evaluation and treat if indicated ?Analgesics as needed ?Bowel protocol ?Acute left MCA stroke?on aspirin and Plavix. Dual antiplatelets for 3 weeks then switch to single antiplatelet with aspirin 81 mg p.o. once daily. On Lipitor 40 mg p.o. nightly. ?Recommend 30-day event recorder on discharge ?DM?on glipizide, metformin and insulin. HbA1c 9.3, needs better blood sugar control and DM management. Recommend endocrinology consult and hospitalist consult for diabetes management ?BPH?on tamsulosin ?GI/DVT prophylaxis?on famotidine/enoxaparin, SCDs, ADITYA hose ?Fall precaution ?Further medical management per hospitalist recommendation, hospitalist consult ?Follow-up with PCP, neurology and endocrinology as outpatient on discharge
[2018-10-14 12:15] LABS: Bedside Glucose 154 mg/dL (70-110)
[2018-10-14 13:20] VITALS: BMI 25.5
[2018-10-14 16:21] LABS: Bedside Glucose 109 mg/dL (70-110)
[2018-10-14 19:35] VITALS: BP 135/91; PULSE 81; RESP 16; TEMP 36.7; O2SAT 95
[2018-10-14 20:51] LABS: Bedside Glucose 157 mg/dL (70-110)
[2018-10-14 21:00] VITALS: BMI 25.5
[2018-10-14] MEDS: traZODone 50 MG Tablet PO (21:02)
[2018-10-14] MEDS: Atorvastatin Calcium 40 MG Tablet PO (21:02)
[2018-10-14] MEDS: Tamsulosin HCl 0.4 MG Capsule 0.8 MG PO (21:03)
[2018-10-14 22:00] VITALS: PULSE 81; RESP 16; O2SAT 95
[2018-10-14 22:55] LABS: Bedside Glucose 156 mg/dL (70-110)
[2018-10-15] MEDS: Enoxaparin 40 MG/0.4 ML Syringe SC (06:50)
[2018-10-15 06:55] LABS: Bedside Glucose 146 mg/dL (70-110)
[2018-10-15 07:11] VITALS: BP 120/76; PULSE 82; RESP 17; TEMP 36.6; O2SAT 97
[2018-10-15] MEDS: Clopidogrel Bisulfate 75 MG Tablet PO (08:04)
[2018-10-15] MEDS: Losartan Potassium 25 MG Tablet PO (08:04)
[2018-10-15] MEDS: Aspirin 81 MG TAB.CHEW PO (08:04)
[2018-10-15] MEDS: glipiZIDE 5 MG Tablet PO ×2 (08:04→18:07)
[2018-10-15] MEDS: Acetaminophen 325 MG Tablet 650 MG PO (09:50)
--- NOTE | 2018-10-15 10:00 | NURSING ---
teaching initiated at this time for lantus insulin pen. Pt reluctant and states Can't you just do it for me. this nurse provided education to pt regarding teaching of insulin administration prior to discharge tomorrow and importance of self administration. Pt then allowed demonstration and administered insulin after extensive 1:1 and teaching.
[2018-10-15 11:50] LABS: Bedside Glucose 133 mg/dL (70-110)
--- NOTE | 2018-10-15 12:02 | CASEMGMT ---
Plan of care meeting held today with pt and his son and daughter present. PT is receiving PT/OT/ST and progressing very well. D/C date has been set for tomorrow 10/16/18. PT will be returning home alone with assist of children as needed. Pt is new diabetic and has been receiving teaching from nursing. Will arrange for home health RN for new diabetic management. No further therapy needed at this time. Family inquiring about medical alert system. SW provided information on different programs. SW to follow for d/c planning. BRANDEN Llamas
[2018-10-15 14:05] VITALS: BMI 25.5
--- NOTE | 2018-10-15 15:26 | DCINST_ITS ---
You will use the following diet at home:: No restrictions, Calorie/Carbohydrate Controlled (specify 1200, 1400, etc) - calorie controll 1800 calories per day Your food should be the consistency of: Regular Your liquids should be the consistency of: Regular/Thin Discharge Activity: Return to Normal Activity, May Not Drive, May Shower Weight Bearing Status: Weight bearing as tolerated Call your doctor if you observe: Fever of 101 or Higher, Coldness, Increased Pain, Numbness or Tingling, Change in Color, Inability to urinate, Inability to have a bowel movement, Shortness of breath, Dizziness, Fainting spells, Chest pain, Prolonged hiccoughing, Increased palpitations (irregular heartbeat), Calf discomfort Additional Instructions: take aspirin 81 mg for a total of 90 days then stop. Handwrittine prescriptions provided for the following: glucometer, lancets, glucometer strips and novofine autocover 30 gauge disposable needles. Allergies/Adverse Reactions: Allergies No Known Allergies Allergy (Verified 10/06/18 16:02) Medications to take at Discharge Acetaminophen [Tylenol Tablet] 650 mg PO Q6H PRN PRN tablet 10/15/18 Aspirin [Aspirin, Baby] 81 mg PO DAILY@0800 90 Days tab.chew 10/15/18 Atorvastatin Calcium [Lipitor] 40 mg PO QHS #30 tablet 10/15/18 Clopidogrel Bisulfate [Plavix] 75 mg PO DAILY #30 tablet 10/15/18 Insulin Glargine [Lantus SoloStar Pen] 10 units SC DAILY #1 pen 10/15/18 Losartan Potassium [Cozaar] 25 mg PO DAILY #30 tablet 10/15/18 Metformin(XR) [Glucophage Xr] 1,000 mg PO DAILY@0800 #30 tablet 10/15/18 Tamsulosin HCl [Flomax] 0.8 mg PO QHS #30 capsule 10/15/18 glipiZIDE [Glucotrol] 5 mg PO BIDCM #60 tablet 10/15/18 traZODone [Desyrel] 50 mg PO DAILY@2200 #30 tablet 10/15/18 The following prescriptions were given: Atorvastatin Calcium [Lipitor] 40 mg PO QHS #30 tablet Clopidogrel Bisulfate [Plavix] 75 mg PO DAILY #30 tablet Insulin Glargine [Lantus SoloStar Pen] 10 units SC DAILY #1 pen Losartan Potassium [Cozaar] 25 mg PO DAILY #30 tablet Metformin(XR) [Glucophage Xr] 1,000 mg PO DAILY@0800 #30 tablet Tamsulosin HCl [Flomax] 0.8 mg PO QHS #30 capsule traZODone [Desyrel] 50 mg PO DAILY@2200 #30 tablet glipiZIDE [Glucotrol] 5 mg PO BIDCM #60 tablet Primary Care Physician: Diamond Acevedo MD [Primary Care Provider] - Test Results: Test results from this visit will be discussed in further detail at your follow- up appointment, if applicable. Please Follow Up With: Dr Acevedo Please Follow Up With: Petra Stroud Please Follow Up With: Dr Childers Please Follow Up With: Home nursing Please Follow Up With: Outpatient diabetic teaching/security installation sales technician
--- NOTE | 2018-10-15 15:37 | PCM.RU.DC ---
Rehab Discharge Summary DATE OF ADMISSION: 10/08/18 DATE OF DISCHARGE: 10/16/2018 - Rehab Diagnosis Left MCA stroke Subjective: Per nursing no issues overnight. Team meeting held this am and patient voiced wanting to be discharged home. Patient is independent with all transfers, needs and ADLs. Per nursing teaching and education being provided to patient in regards all comorbidities and demonstration for glucose monitoring and checks. Patient will be discharged home on 10/16/2018. Patient denies any further questions or concerns. - Physical Exam General: Alert, Oriented x3 HEENT: Atraumatic, PERRLA Oral: Moist Mucosa Neck: Supple, No JVD Lungs: Clear to auscultation, Normal air movement Cardiovascular: Regular rate, Regular Rhythm Abdomen: Bowel Sounds Present, Soft, Non Tender Extremities: No clubbing, No cyanosis, No edema Musculoskeletal: - - mild tenderness to right shoulder with movement, has full ROM without difficutly Neurological: Cranial nerves II-XII grossly intact, Deep Tendon Reflexes 2+/4 and Symmetrical, Motor Exam 5/5 strength throughout, Coordination normal Psych/Mental Status: Normal Affect, Appropriate, Alert and oriented to time, place, person, mood and affect Vital Signs Temp Pulse Resp BP Pulse Ox 98 F 82 17 120/76 97 10/15/18 07:11 10/15/18 07:11 10/15/18 07:11 10/15/18 07:11 10/15/18 07:11 Oxygen Delivery Method Room Air Weight: 72.3 kg Body Mass Index (BMI) 25.5 Finger Stick Blood Glucose 231 Intake and Output for Last 24 Hours 10/13/18 10/14/18 10/15/18 23:59 23:59 23:59 Intake Total 480 / 480 Balance 480 / 480 Microbiology Past 72 Hours 10/12/18 12:10 Urine Culture - Final Urine, Random Mixed Gram Pos & Gram Neg Org POC Glucose 10/15/18 10/15/18 10/14/18 11:45 06:50 22:07 POC Glucose 133 H 146 H 156 H 10/14/18 10/14/18 20:39 16:11 POC Glucose 157 H 109 Discharge Diet: No Restrictions, 1800 Calorie Control Diet Discharge Activity: Return to Normal Activity, May Not Drive, May Shower Weight Bearing Status: Weight bearing as tolerated Call your doctor if you observe: Fever of 101 or Higher, Coldness, Increased Pain, Numbness or Tingling, Change in Color, Inability to urinate, Inability to have a bowel movement, Shortness of breath, Dizziness, Fainting spells, Chest pain, Prolonged hiccoughing, Increased palpitations (irregular heartbeat), Calf discomfort Home Medications: Medications to take at Discharge Acetaminophen [Tylenol Tablet] 650 mg PO Q6H PRN PRN tablet 10/15/18 Aspirin [Aspirin, Baby] 81 mg PO DAILY@0800 90 Days tab.chew 10/15/18 Atorvastatin Calcium [Lipitor] 40 mg PO QHS #30 tablet 10/15/18 Clopidogrel Bisulfate [Plavix] 75 mg PO DAILY #30 tablet 10/15/18 Insulin Glargine [Lantus SoloStar Pen] 10 units SC DAILY #1 pen 10/15/18 Losartan Potassium [Cozaar] 25 mg PO DAILY #30 tablet 10/15/18 Metformin(XR) [Glucophage Xr] 1,000 mg PO DAILY@0800 #30 tablet 10/15/18 Tamsulosin HCl [Flomax] 0.8 mg PO QHS #30 capsule 10/15/18 glipiZIDE [Glucotrol] 5 mg PO BIDCM #60 tablet 10/15/18 traZODone [Desyrel] 50 mg PO DAILY@2200 #30 tablet 10/15/18 Following Prescrptions Were Given to Patient: Atorvastatin Calcium [Lipitor] 40 mg PO QHS #30 tablet Clopidogrel Bisulfate [Plavix] 75 mg PO DAILY #30 tablet Insulin Glargine [Lantus SoloStar Pen] 10 units SC DAILY #1 pen Losartan Potassium [Cozaar] 25 mg PO DAILY #30 tablet Metformin(XR) [Glucophage Xr] 1,000 mg PO DAILY@0800 #30 tablet Tamsulosin HCl [Flomax] 0.8 mg PO QHS #30 capsule traZODone [Desyrel] 50 mg PO DAILY@2200 #30 tablet glipiZIDE [Glucotrol] 5 mg PO BIDCM #60 tablet Primary Care Physician: Diamond Acevedo MD [Primary Care Provider] - Please Follow Up With: Dr Acevedo Please Follow Up With: Petra Stroud Please Follow Up With: Dr Childers Please Follow Up With: Home nursing Please Follow Up With: Outpatient diabetic teaching/fish and wildlife warden Disposition: Home with Home Health - nursing for assessment of glucose monitoring and insulin injections Patient Condition:: Stable Rehab Course T]he patient is a 73 year old M with PMH DM, BPH admitted to [facility] on 10/08/2018 with debility status post acute left MCA stroke, for greater than 3 hours therapy daily with a goal of returning back home at or near his prior level of functional independence. 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 TTE showed EF of 65%, normal left LA size, no PFO, LDL?95, HbA1c?9.3. At present patient feels his speech almost at baseline, denies any headache, dizziness, visual disturbances, motor weakness or sensory loss at present. He lives with his son, does not use any cane or walker to ambulate, denies any frequent falls, does drive and does not need any assistance for his ADLs. He is not taking aspirin at baseline. He also denies taking his diabetes medications at home. Patient had uncomplicated course on RU. Patient will be receiving home health nurse to assess with diabetes monitoring and injections of insulin, outpatient fish and wildlife warden/diabetes education. Patient verbalized understanding to continue aspirin, plavix and lipitor for MCA stroke treatment and to only take aspirin x 90 days then stop. Patient will have a 30 day event monitor at discharge and Dr Childers manager transmission will follow patient. Patient to follow up with PCP, neurology, cardiology, and outpatient fish and wildlife warden. Meaningful Use Info Meaningful Use Diagnoses (Choose all that apply): Ischemic CVA - CVA Therapy Assessed for PT,OT and/or ST?: Yes - Ischemic Stroke Antithrombotic order at d/c?: Yes Dx of Atrial fib/flutter?: No Statins at discharge?: Yes Primary Dx Acute Ischemic CVA?: Yes IV tPA ordered during stay?: No Reason IV t-PA not ordered: Treatment not Indicated - out of window for TPA - VTE Anticoag overlap given w/in hospital stay or rx'd at dc?: Yes Pt receive overlap for 5 days?: Yes
--- NOTE | 2018-10-15 15:43 | DS.PCM_ITS ---
Rehab Discharge Summary DATE OF ADMISSION: 10/08/18 DATE OF DISCHARGE: 10/16/2018 - Rehab Diagnosis Left MCA stroke Subjective: Per nursing no issues overnight. Team meeting held this am and patient voiced wanting to be discharged home. Patient is independent with all transfers, needs and ADLs. Per nursing teaching and education being provided to patient in regards all comorbidities and demonstration for glucose monitoring and checks. Patient will be discharged home on 10/16/2018. Patient denies any further questions or concerns. - Physical Exam General: Alert, Oriented x3 HEENT: Atraumatic, PERRLA Oral: Moist Mucosa Neck: Supple, No JVD Lungs: Clear to auscultation, Normal air movement Cardiovascular: Regular rate, Regular Rhythm Abdomen: Bowel Sounds Present, Soft, Non Tender Extremities: No clubbing, No cyanosis, No edema Musculoskeletal: - - mild tenderness to right shoulder with movement, has full ROM without difficutly Neurological: Cranial nerves II-XII grossly intact, Deep Tendon Reflexes 2+/4 and Symmetrical, Motor Exam 5/5 strength throughout, Coordination normal Psych/Mental Status: Normal Affect, Appropriate, Alert and oriented to time, place, person, mood and affect Vital Signs Temp Pulse Resp BP Pulse Ox 98 F 82 17 120/76 97 10/15/18 07:11 10/15/18 07:11 10/15/18 07:11 10/15/18 07:11 10/15/18 07:11 Oxygen Delivery Method Room Air Weight: 72.3 kg Body Mass Index (BMI) 25.5 Finger Stick Blood Glucose 231 Intake and Output for Last 24 Hours 10/13/18 10/14/18 10/15/18 23:59 23:59 23:59 Intake Total 480 / 480 Balance 480 / 480 Microbiology Past 72 Hours 10/12/18 12:10 Urine Culture - Final Urine, Random Mixed Gram Pos & Gram Neg Org POC Glucose 10/15/18 10/15/18 10/14/18 11:45 06:50 22:07 POC Glucose 133 H 146 H 156 H 10/14/18 10/14/18 20:39 16:11 POC Glucose 157 H 109 Discharge Diet: No Restrictions, 1800 Calorie Control Diet Discharge Activity: Return to Normal Activity, May Not Drive, May Shower Weight Bearing Status: Weight bearing as tolerated Call your doctor if you observe: Fever of 101 or Higher, Coldness, Increased Pain, Numbness or Tingling, Change in Color, Inability to urinate, Inability to have a bowel movement, Shortness of breath, Dizziness, Fainting spells, Chest pain, Prolonged hiccoughing, Increased palpitations (irregular heartbeat), Calf discomfort Home Medications: Medications to take at Discharge Acetaminophen [Tylenol Tablet] 650 mg PO Q6H PRN PRN tablet 10/15/18 Aspirin [Aspirin, Baby] 81 mg PO DAILY@0800 90 Days tab.chew 10/15/18 Atorvastatin Calcium [Lipitor] 40 mg PO QHS #30 tablet 10/15/18 Clopidogrel Bisulfate [Plavix] 75 mg PO DAILY #30 tablet 10/15/18 Insulin Glargine [Lantus SoloStar Pen] 10 units SC DAILY #1 pen 10/15/18 Losartan Potassium [Cozaar] 25 mg PO DAILY #30 tablet 10/15/18 Metformin(XR) [Glucophage Xr] 1,000 mg PO DAILY@0800 #30 tablet 10/15/18 Tamsulosin HCl [Flomax] 0.8 mg PO QHS #30 capsule 10/15/18 glipiZIDE [Glucotrol] 5 mg PO BIDCM #60 tablet 10/15/18 traZODone [Desyrel] 50 mg PO DAILY@2200 #30 tablet 10/15/18 Following Prescrptions Were Given to Patient: Atorvastatin Calcium [Lipitor] 40 mg PO QHS #30 tablet Clopidogrel Bisulfate [Plavix] 75 mg PO DAILY #30 tablet Insulin Glargine [Lantus SoloStar Pen] 10 units SC DAILY #1 pen Losartan Potassium [Cozaar] 25 mg PO DAILY #30 tablet Metformin(XR) [Glucophage Xr] 1,000 mg PO DAILY@0800 #30 tablet Tamsulosin HCl [Flomax] 0.8 mg PO QHS #30 capsule traZODone [Desyrel] 50 mg PO DAILY@2200 #30 tablet glipiZIDE [Glucotrol] 5 mg PO BIDCM #60 tablet Primary Care Physician: Diamond Acevedo MD [Primary Care Provider] - Please Follow Up With: Dr Acevedo Please Follow Up With: Petra Storud Please Follow Up With: Dr Childers Please Follow Up With: Home nursing Please Follow Up With: Outpatient diabetic teaching/transfill technician Disposition: Home with Home Health - nursing for assessment of glucose monitoring and insulin injections Patient Condition:: Stable Rehab Course T]he patient is a 73 year old M with PMH DM, BPH admitted to [facility] RU on 10/08/2018 with debility status post acute left MCA stroke, for greater than 3 hours therapy daily with a goal of returning back home at or near his prior level of functional independence. 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 TTE showed EF of 65%, normal left LA size, no PFO, LDL?95, HbA1c?9.3. At present patient feels his speech almost at baseline, denies any headache, dizziness, visual disturbances, motor weakness or sensory loss at present. He lives with his son, does not use any cane or walker to ambulate, denies any frequent falls, does drive and does not need any assistance for his ADLs. He is not taking aspirin at baseline. He also denies taking his diabetes medications at home. Patient had uncomplicated course on RU. Patient will be receiving home health nurse to assess with diabetes monitoring and injections of insulin, outpatient transfill technician/diabetes education. Patient verbalized understanding to continue aspirin, plavix and lipitor for MCA stroke treatment and to only take aspirin x 90 days then stop. Patient will have a 30 day event monitor at discharge and Dr Childers health technician will follow patient. Patient to follow up with PCP, neurology, cardiology, and outpatient transfill technician. Meaningful Use Info Meaningful Use Diagnoses (Choose all that apply): Ischemic CVA - CVA Therapy Assessed for PT,OT and/or ST?: Yes - Ischemic Stroke Antithrombotic order at d/c?: Yes Dx of Atrial fib/flutter?: No Statins at discharge?: Yes Primary Dx Acute Ischemic CVA?: Yes IV tPA ordered during stay?: No Reason IV t-PA not ordered: Treatment not Indicated - out of window for TPA - VTE Anticoag overlap given w/in hospital stay or rx'd at dc?: Yes Pt receive overlap for 5 days?: Yes
--- NOTE | 2018-10-15 15:59 | CASEMGMT ---
Social Work Referral made to [facility] for home health SN for diabetic training. Provided pt with written list of medical alert systems. Pt to return home alone with support from family who will also transport home. No further d/c needs. Plan: d/c 10/16/18 home alone with [facility] BRANDEN Willis
[2018-10-15 16:45] LABS: Bedside Glucose 132 mg/dL (70-110)
[2018-10-15 19:54] VITALS: BP 142/87; PULSE 69; RESP 16; TEMP 36.6; O2SAT 96
[2018-10-15 22:01] LABS: Bedside Glucose 197 mg/dL (70-110)
[2018-10-15] MEDS: Atorvastatin Calcium 40 MG Tablet PO (22:13)
[2018-10-15] MEDS: Insulin Lispro 100 UNIT/ML INSULN.PEN SC (22:13)
[2018-10-15] MEDS: Tamsulosin HCl 0.4 MG Capsule 0.8 MG PO (22:14)
[2018-10-15] MEDS: traZODone 50 MG Tablet PO (22:14)
[2018-10-16 06:21] LABS: Bedside Glucose 150 mg/dL (70-110)
[2018-10-16] MEDS: Enoxaparin 40 MG/0.4 ML Syringe SC (06:38)
[2018-10-16 07:00] VITALS: BP 111/68; PULSE 66; RESP 16; TEMP 36.6; O2SAT 94
[2018-10-16] MEDS: Insulin Lispro 100 UNIT/ML INSULN.PEN SC (09:23)
[2018-10-16] MEDS: Aspirin 81 MG TAB.CHEW PO (09:26)
[2018-10-16] MEDS: Losartan Potassium 25 MG Tablet PO (09:27)
[2018-10-16] MEDS: glipiZIDE 5 MG Tablet PO (09:27)
[2018-10-16] MEDS: Clopidogrel Bisulfate 75 MG Tablet PO (09:29)
--- NOTE | 2018-10-16 10:36 | CASEMGMT ---
Social Work: Patient is asking for blank copies of Advanced Directive forms. This SW provided patient with advanced directive documents as well as the social work rack card if he would like to complete the documents at a later date. ANJUM Rod
--- NOTE | 2018-10-16 13:18 | NURSING ---
This RN went over DC instructions with pt and daughter in law. Pt go up during discharge and was leaving the room. This RN asked pt where he was going, pt stated to his appt. This RN asked pt to please sit back down until discharge instructions were completed, pt acted annoyed. This RN was going over insulin instructions, pt stated that daughter in law would be administering insulin. Daughter in law acknowledged to this RN that she did not know that she was going to give insulin, pt still wanting to leave room and go to appt. This RN told pt that it is important to know how to give insulin and proper dosing d/t fact if too much insulin is given it could cause serious health issues. This RN demonstrated to daughter in law and pt how to draw insulin, prime insulin pen and administer. Daughter in law demonstrated how to use pen with this RN. This RN completed discharge instruction. Pt requested extra copies of instructions while this RN was printing off copies pt and daughter in law were in a hurry to leave and was leaving the floor w/o paperwork. This RN gave discharge paperwork to daughter in law in front of the elevator. This RN faxed glucometer order over to Nadeen Robledo, who will do pt teaching per this RN's request.
[2018-10-16 13:37] VITALS: BP 111/68; PULSE 66; RESP 16; TEMP 36.6; O2SAT 94
== END 2018-10-16 10:50 | disposition home health service (06) | DRG 57 ==
PROVIDERS: Internal Medicine; Nurse Practitioner Family; Student in an Organized Health Care Education/Training Program; Admitting Provider Psychiatry & Neurology Neurology; Family Provider Internal Medicine; PCP Internal Medicine; Referring Provider Psychiatry & Neurology Neurology; Visit Provider Internal Medicine
DX: I69.323 Fluency disorder following cerebral infarction (principal); I50.32 Chronic diastolic (congestive) heart failure; N40.0 Benign prostatic hyperplasia without lower urinary tract symptoms; I69.392 Facial weakness following cerebral infarction; E11.65 Type 2 diabetes mellitus with hyperglycemia; E78.5 Hyperlipidemia, unspecified; M19.90 Unspecified osteoarthritis, unspecified site
CPT/HCPCS: 80053; 81001; 82962; 85025; 87086; 87088; 92507; 92523; 97110; 97112; 97116; 97162; 97166; 97530; 97535; 97802

== ENCOUNTER 2018-12-09 13:00 | Outpatient (RCR) | payer MEDICARE, OTHER, SELFPAY ==
[2018-11-11 09:52] VITALS: BMI 25.7
== END 2018-12-13 23:59 ==
LOC: DC 13:00
PROVIDERS: Family Provider Internal Medicine; PCP Internal Medicine; Referring Provider Nurse Practitioner Family; Visit Provider Nurse Practitioner Family
DX: E11.9 Type 2 diabetes mellitus without complications (principal); N40.0 Benign prostatic hyperplasia without lower urinary tract symptoms; Z86.73 Personal history of transient ischemic attack (TIA), and cerebral infarction without residual deficits; Z71.3 Dietary counseling and surveillance
CPT/HCPCS: 97803; G0108

== ENCOUNTER 2019-01-07 13:00 | Outpatient (RCR) | payer MEDICARE, OTHER, SELFPAY ==
[2018-11-11 09:52] VITALS: BMI 25.7
== END 2019-01-07 23:59 | disposition home or self-care (01) ==
LOC: DC 13:00
PROVIDERS: Family Provider Internal Medicine; PCP Internal Medicine; Referring Provider Nurse Practitioner Family; Visit Provider Nurse Practitioner Family
DX: E11.9 Type 2 diabetes mellitus without complications (principal); Z71.3 Dietary counseling and surveillance
CPT/HCPCS: 97803; G0108

== ENCOUNTER → 2019-02-04 06:33 | Outpatient (CLI) | payer MEDICARE, OTHER, SELFPAY ==
[2019-01-27 15:31] VITALS: BMI 26.2
--- NOTE | 2019-02-04 14:24 | STRESSREP_ITS ---
Stress Test Report Date: 02/04/2019 Procedure: Pharmacologic stress nuclear imaging study Indications: Shortness of breath Consent: Per the patient Procedure: The patient underwent pharmacologic (Regadenoson) evaluation with a peak heart rate of 85 beats per minute (58 %predicted maximal heart rate) and a peak blood pressure of 136/90 mmHg. The baseline ECG demonstrated normal sinus rhythm. EKG during lexiscan infusion revealed no significant change from baseline. EKG post infusion revealed no significant change from baseline [There were no cardiac dysrhythmias pretest, during pharmacologic infusion, or recovery]. [There was no complaint of chest discomfort during pharmacologic infusion or recovery]. The examination was discontinued secondary to completion of protocol. Impression: 1. Lexiscan stress test test is negative for Lexiscan infusion induced EKG changes of ischemia. 2. Lexiscan stress test test is negative for Lexiscan infusion induced chest pain. 3. Results of the nuclear portion of the test is as below Myocardial perfusion imaging study: Technique: The patient was injected with 11.6 millicuries of technetium 99m Cardiolite and subsequently rest SPECT Cardiolite nuclear imaging was obtained in the horizontal long, vertical long, and short axis views. The patient underwent pharmacologic (Regadenoson) evaluation. Please see above for details. The patient was injected with 33 millicuries of technetium 99m Cardiolite and subsequently stress SPECT Cardiolite nuclear imaging was obtained in the ho rizontal long, vertical long, and short axis views. A gated Cardiolite study at peak stress was obtained. Interpretation: Rest and stress SPECT Cardiolite nuclear imaging status post realignment, normalization, and attenuation correction demonstrate overall normal myocardial radioisotope uptake. Gated images reveal no significant regional wall motion abnormalities. The reported LVEF is 71 %. Impression: 1. There is no evidence of significant ischemia or infarction. 2. Estimated ejection fraction is 71%. This note was generated with Fengguoation software. It may contain incorrect words, spelling, and punctuation that were not noted in checking the note before signing.
== END ==
PROVIDERS: Family Provider Internal Medicine; PCP Internal Medicine; Referring Provider Specialist; Visit Provider Specialist
DX: R06.02 Shortness of breath (principal); I51.9 Heart disease, unspecified; I34.0 Nonrheumatic mitral (valve) insufficiency
CPT/HCPCS: 78452; 93017; A9500; A4216; J2785

== ENCOUNTER 2019-02-23 09:00 | Outpatient (RCR) | payer MEDICARE, OTHER, SELFPAY ==
[2018-11-11 09:52] VITALS: BMI 25.7
--- NOTE | 2018-11-13 13:04 | HP.PTEVAL_ITS ---
Patient's Visit Information KIMBERLEE DEAN is a 73 year old M referred to Physical Therapy by CHASE Hudson with a diagnosis of Left MCA- CVA. Date of Evaluation: 11/13/18 Physical Therapist: Maia Rivas DPT - Visit Plan Frequency: 2x /Week Duration: 4 Weeks Plan: Focus on LE strength and balance with functional mobility. - Subjective Findings: Patient reports that he had a stroke and then went to the 4th floor and came home 10 days ago. He has no muscle pain just weakness. No falls since he has been home. Can do all his own ADL's- his [id number] do the cooking and housework for him. Does not do stairs at home. He is driving to/from appts and wants to remain Indepdent. Goals are to be stronger and feel less unsteady. PMHx/Meds: in chart - Objective Posture: FH, RS- can correct but does not maintain. Gait: toes turned out to the side bilaterally- No AD- mild deviation with head turns with ambulation- gait is slow. Sit to Stands: 8 in 30 seconds- uses UE A from chair. Stairs: asc 8 recip with 2 HR and UE A for propulsion- Desc non recip leads with left LE and uses 2 HR. Balance: will weight shift but does not SLS- is unable to obtain tandem stance without UE A- can walk backwards safely- takes 5 seconds to turn 360 degrees. ROM: WFL but reports pain in shoulders with ROM. Strength: Right: Hip: 4/5, Knee: 4+/5, Ankle: 4+/5 Left: Hip: 4-/5, Knee: 4/5, Ankle: 4/5 Core: poor Shoulder: 4-/5 throughout with pain - Goals Goal 1:: Patient will be I with HEP and progression Goal Time Frame: 4-6 Weeks Goal 2:: Patient will asc/desc 8 recip with 1 HR Goal Time Frame: 4-6 Weeks Goal 3:: Patient will ambualte >300 feet with a normalized gait pattern Goal Time Frame: 4-6 Weeks Goal 4:: Patient will demo 4+/5 strength in LE where deficit Goal Time Frame: 4-6 Weeks - Rehabilitation Potential Physical Therapy Diagnosis: Patient presents with hypomobility- he has decreased strength and endurance leading to poor balance and decreased functional mobility. Rehabilitation Potential: Fair - Anticipated Interventions Patient/Client Instruction: Educate patient on: Benefits of Fitness Program Therapeutic Exercise to Include: Strength training, Endurance training, Coordination, Agility training, Body mechanics, Postural training, Flexibilty training, Passive ROM, Active ROM, Dynamic Lumbar Stabilization, Scapular Strength/Stabilization For the Purpose of:: To improve muscle performance and motor function Cryotherapy (ice pack, ice massage): Yes Thermo therapy (hot pack): Yes Thank you for the opportunity to evaluate your patient. For Medicare and Medicare HMO plans, please review the plan of care and approve it. It will need to be FAXED BACK to us at [phone] for Medicare purposes. For Medicare only, by signing this I certify the plan of care. Please let me know if there are questions or concerns regarding this plan of care. Physician Signature: Date:
--- NOTE | 2018-12-21 13:17 | HP.PTREVAL ---
Petra Stroud, ARSH-C, It has been my pleasure to treat KIMBERLEE DEAN over the last 7 visits for Left MCA- CVA. Please see the progress note below for an update on the physical therapy plan of care! Subjective: Patient reports that they are better but they are not back to normal yet. Feels that he is 50% back to normal. No falls or loss of balance. Feels continuation of PT is warranted Objective/Function: Posture: FH, RS- can correct but does not maintain. Gait: toes turned out to the side bilaterally- No AD- mild deviation with head turns with ambulation- gait is slow. Stairs: asc 8 recip with 1 HR and UE A for propulsion- Desc recip with 2 HR but controlled Balance: SLS for 3 seconds Strength: Right: Hip: 4/5, Knee: 4+/5, Ankle: 5/5 Left: Hip: 4/5, Knee: 4+/5, Ankle: 4+/5 Core: fair Plan Plan: Continue 2x a week for 4 weeks- Focus on LE and core s/s with functional mobility. Goals Goal 1:: Patient will be I with HEP and progression Goal Time Frame: 4-6 Weeks Goal Progress: Progressing Goal 2:: Patient will asc/desc 8 recip with 1 HR Goal Time Frame: 4-6 Weeks Goal Progress: Progressing Goal 3:: Patient will ambualte >300 feet with a normalized gait pattern Goal Time Frame: 4-6 Weeks Goal Progress: Progressing Goal 4:: Patient will demo 4+/5 strength in LE where deficit Goal Time Frame: 4-6 Weeks Goal Progress: Progressing Anticipated Interventions Patient/Client Instruction: Educate patient on: Benefits of Fitness Program Therapeutic Exercise to Include: Strength training, Endurance training, Coordination, Agility training, Body mechanics, Postural training, Flexibilty training, Passive ROM, Active ROM, Dynamic Lumbar Stabilization, Scapular Strength/Stabilization For the Purpose of:: To improve muscle performance and motor function Cryotherapy (ice pack, ice massage): Yes Thermo therapy (hot pack): Yes Please do not hesitate to contact me at [phone] by phone or if you have questions or concerns regarding this new plan of care! Sincerely, Maia Rivas DPT
--- NOTE | 2019-01-28 11:37 | HP.PTREVAL_ITS ---
Petra Stroud, ARSH-C, It has been my pleasure to treat KIMBERLEE DEAN over the last 14 visits for Left MCA- CVA. Please see the progress note below for an update on the physical therapy plan of care! Subjective: Patient reports that he feels he is getting stronger. He saw his environmental solutions engineer who wants him to have stress test and a neurologist who wants him to keep exerciseing. No pain just weakness Objective/Function: Posture: FH, RS- can correct but does not maintain. Gait: toes turned out to the side bilaterally- No AD-gait is slow. Stairs: asc 8 recip with 1 HR and UE A for propulsion- Desc recip with 2 HR but controlled Balance: SLS for 3 seconds Strength: Right: Hip: 4/5, Knee: 5/5, Ankle: 5/5 Left: Hip: 4/5, Knee: 5/5, Ankle: 5/5 Core: fair. Flex: HS: moderate, Gastroc: mild. Patient on phone for part of session Plan Plan: Stick roll out each visit with LE exercise included. Continue 2x a week for 4 weeks- Focus on LE and core s/s with functional mobility. Goals Goal 1:: Patient will be I with HEP and progression Goal Time Frame: 4-6 Weeks Goal Progress: Progressing Goal 2:: Patient will asc/desc 8 recip with 1 HR Goal Time Frame: 4-6 Weeks Goal Progress: Progressing Goal 3:: Patient will ambualte >300 feet with a normalized gait pattern Goal Time Frame: 4-6 Weeks Goal Progress: Progressing Goal 4:: Patient will demo 4+/5 strength in LE where deficit Goal Time Frame: 4-6 Weeks Goal Progress: Progressing Anticipated Interventions Patient/Client Instruction: Educate patient on: Benefits of Fitness Program Therapeutic Exercise to Include: Strength training, Endurance training, Coordination, Agility training, Body mechanics, Postural training, Flexibilty training, Passive ROM, Active ROM, Dynamic Lumbar Stabilization, Scapular Strength/Stabilization For the Purpose of:: To improve muscle performance and motor function Cryotherapy (ice pack, ice massage): Yes Thermo therapy (hot pack): Yes Please do not hesitate to contact me at [phone] by phone or Fax: if you have questions or concerns regarding this new plan of care! Sincerely, Maia Rivas DPT
--- NOTE | 2019-03-26 08:02 | HP.PT.NRP ---
HP - Discharge Summary (1) - Patient Information KIMBERLEE DEAN was seen in my office for initial evaluation on 11/13/18. The following Plan of Care was established for this patient: Initial Frequency: 2x /Week Initial Duration: 4 Weeks - Anticipated Interventions Patient/Client Instruction: Educate patient on: Benefits of Fitness Program Therapeutic Exercise to Include: Strength training, Endurance training, Coordination, Agility training, Body mechanics, Postural training, Flexibilty training, Passive ROM, Active ROM, Dynamic Lumbar Stabilization, Scapular Strength/Stabilization For the Purpose of:: To improve muscle performance and motor function Cryotherapy (ice pack, ice massage): Yes Thermo therapy (hot pack): Yes This patient was last seen in our office . Pertinent comments regarding their Physical therapy will appear below: Patient is I with HEP and appropriate for d/c at this time. At this point I will be discontinuing this patient from physical therapy. I would be happy to see this patient again in the future if found appropriate by the physician. Thank you! Maia Rivas DPT
== END 2019-02-23 19:00 | disposition home or self-care (01) ==
LOC: PT 09:00
PROVIDERS: Family Provider Internal Medicine; PCP Internal Medicine; Referring Provider Nurse Practitioner Family; Visit Provider Nurse Practitioner Family
DX: Z86.73 Personal history of transient ischemic attack (TIA), and cerebral infarction without residual deficits (principal)
CPT/HCPCS: 97110; 97140; 97161; 97164

== ENCOUNTER → 2019-03-08 07:57 | Outpatient (CLI) | payer MEDICARE, OTHER, SELFPAY ==
[2019-02-09 06:13] VITALS: BMI 26.4
[2019-02-10 13:34] VITALS: BMI 26.6
--- NOTE | 2019-03-09 10:48 | PFT ---
INTRODUCTION: The patient is a 73-year-old male that presents for pulmonary function studies secondary to a diagnosis of shortness of breath. Respiratory therapy reported that the patient had difficulty in following the directions for testing. Bronchodilators were used during testing. INTERPRETATION: Forced expiration spirometry demonstrates no evidence of a large airways obstructive ventilatory defect. There was no significant response to aerosolized bronchodilators, based upon strict ATS criteria. Spirograms are of fair quality and plateau normally. Body plethysmography was performed and reveals lung volumes to be within normal limits. Attempts to obtain DLCO were unsuccessful. IMPRESSION: Normal spirometry and lung volumes. No significant bronchodilator response. Patient had difficulty following directions associated with testing.
== END ==
PROVIDERS: Family Provider Internal Medicine; PCP Internal Medicine; Referring Provider Internal Medicine Critical Care Medicine; Visit Provider Internal Medicine Critical Care Medicine
DX: R06.02 Shortness of breath (principal)
CPT/HCPCS: 94060; 94726; 94729

== ENCOUNTER → 2019-07-22 13:34 | Outpatient (CLI) | payer MEDICARE, OTHER, SELFPAY ==
[2019-05-31 08:12] VITALS: BMI 26.3
--- NOTE | 2019-07-22 13:38 | ECHOCS_ITS ---
Reason For Study: WEAKNESS Procedure This was a 2D Doppler, Color Flow transthoracic echocardiogram. Contrast injection was performed. The study was technically difficult. Exam performed in department. Left Ventricle Normal LV size. Left ventricular systolic function is normal. The estimated ejection fraction is 60 %. Stage 1 diastolic dysfunction. No regional wall motion abnormalities noted. Right Ventricle Normal RV size. Normal systolic function. Atria Normal left atrium. Normal right atrium. Mitral Valve Normal mitral valve. Tricuspid Valve Normal tricuspid valve. Mild tricuspid valve insufficiency. Pulmonary artery systolic pressure is 25 mmHg. Aortic Valve Normal aortic valve. Trisinus/trileaflet aortic valve. Pulmonic Valve The pulmonic valve is not well visualized. Great Vessels Normal aortic root. The pulmonary artery is normal size. Normal inferior vena cava. Pericardium/Pleural No pericardial effusion. Medication 22 gauge I.V. with prn adaptor inserted into right arm. Diluted definity 4.0ml given slow IV push to enhance endocardial definition. MMode/2D Measurements & Calculations LVIDd: 3.6 cm IVSd: 0.95 cm Ao root diam: 3.8 cm LVIDs: 2.4 cm LVPWd: 1.0 cm RVDd: 2.3 cm FS: 33.3 % LAV(MOD-bp): 43.0 ml LVAd ap4: 26.3 cm2 SV(MOD-sp4): 39.4 ml LAV(MOD-bp) Indexed: 23.5 ml/m2 EDV(MOD-sp4): 72.1 ml LAV(MOD-sp2): 52.1 ml EDV(sp4-el): 77.7 ml LAV(MOD-sp4): 34.6 ml LVAs ap4: 16.0 cm2 ESV(MOD-sp4): 32.8 ml ESV(sp4-el): 34.7 ml EF(MOD-sp4): 54.6 % EF(sp4-el): 55.3 % SV(sp4-el): 43.0 ml LA A4 area: 14.2 cm2 LA dimension(2D): 4.5 cm RA A4 area: 9.4 cm2 Time Measurements MV dec time: 0.35 sec Doppler Measurements & Calculations MV E max steven: 45.3 cm/sec Lat Peak E' Steven: 8.5 cm/sec Med Peak E' Steven: 3.5 cm/sec MV A max steven: 58.8 cm/sec E/E' lat: 5.3 E/E' med: 12.8 MV E/A: 0.77 Ao V2 max: 113.2 cm/sec LV V1 max: 109.4 cm/sec PA V2 max: 97.1 cm/sec Ao max P.1 mmHg LV V1 max P.8 mmHg TR max steven: 227.4 cm/sec TR max P.7 mmHg Interpretation Summary Normal LV size. Left ventricular systolic function is normal. The estimated ejection fraction is 60 %. Stage 1 diastolic dysfunction. Mild tricuspid valve insufficiency. Contrast injection was performed. Ordering Physician: Diamond Acevedo Referring Physician: Diamond Acevedo Performed By: Mckenzie Chapin, BRAD, RVT
== END ==
PROVIDERS: PCP Internal Medicine; Referring Provider Internal Medicine; Visit Provider Internal Medicine
DX: R06.02 Shortness of breath (principal); R53.1 Weakness; R53.83 Other fatigue
CPT/HCPCS: 93306; Q9957; C8929

== ENCOUNTER → 2019-11-02 11:51 | Outpatient (CLI) | payer MEDICARE, OTHER, SELFPAY ==
[2019-08-11 13:01] VITALS: BMI 26.3
--- NOTE | 2019-11-02 13:45 | MRI_ITS ---
We are attempting to reach an attending provider to discuss findings. An addendum with communication details will be sent when the communication is complete. STUDY: MRI BRAIN WITH AND WITHOUT CONTRAST REASON FOR EXAM: Male, 74 years old. ataxia, frequent falls, n/v, h/o stroke TECHNIQUE: Standardized multiplanar fat and water weighted pulse sequences were obtained. IV Dotarem 15ml was administered for the contrast portion of the examination. COMPARISON: 10/07/2018 FINDINGS: There is moderate cerebral atrophy with widening of the extra-axial spaces and ventricular dilatation. There are multiple white matter hyperintensities, distributed throughout the deep white matter tracts of the cerebral hemispheres, consistent with moderate chronic white matter ischemic changes. Focal subcentimeter hyperintensity of the perinephric white matter of the left frontal lobe demonstrates restricted diffusion consistent with an acute white matter infarct. Normal T2* images of the brain without demonstrated susceptibility artifact. There is no demonstrated hemosiderin stain. Normal bilateral basal ganglia. Normal thalami. There is no extra-axial fluid accumulation. Normal flow voids within the major intracranial circulation suggesting patency by spin echo criteria. Normal venous enhancement. There is no enhancing intra-axial or extra-axial abnormality. Normal sella turcica, pituitary gland, infundibular stalk, optic chiasm and hypothalamus. Normal tectal plate and pineal gland. There are chronic white matter ischemic changes of the monica. The midbrain and medulla are otherwise normal. Normal cerebellum. Normal basal cisterns. Normal bilateral temporal bones. Normal bilateral internal auditory canals. There are bilateral ocular lens implants with otherwise normal intraorbital contents. Normal visualized paranasal sinuses. Normal calvarium and skull base. Normal visualized soft tissue structures. Normal visualized upper cervical spine. MRI/Brain W/WO Contrast IMPRESSION: Involutional changes of the brain, as described above. Acute subcentimeter infarct of the periventricular white matter of the left frontal lobe. Electronically Signed: Braulio Lamb MD at 14:02 EDT Tel , Service support ,
== END ==
PROVIDERS: PCP Internal Medicine; Referring Provider Internal Medicine; Visit Provider Internal Medicine
DX: R27.0 Ataxia, unspecified (principal); R29.6 Repeated falls; R11.2 Nausea with vomiting, unspecified; Z86.73 Personal history of transient ischemic attack (TIA), and cerebral infarction without residual deficits
CPT/HCPCS: 70553; A9575

== ENCOUNTER 2019-11-02 17:23 | Inpatient (IN) | payer MEDICARE, OTHER, SELFPAY ==
[2019-08-11 13:01] VITALS: BMI 26.3
[2019-11-02] VITALS (10 sets, daily range): BP systolic 109–145; BP diastolic 77–97; PULSE 74–98; RESP 16–20; TEMP 36.5–36.7; O2SAT 98–99; BMI 23.6; BMI 23.3; BMI 22.7; BMI 22.8
--- NOTE | 2019-11-02 17:46 | EKG12_ITS ---
Test Reason : STROKE ALERT Blood Pressure : / mmHG Vent. Rate : 083 BPM Atrial Rate : 083 BPM P-R Int : 172 ms QRS Dur : 092 ms QT Int : 388 ms P-R-T Axes : 018 -27 047 degrees QTc Int : 455 ms Normal sinus rhythm Voltage criteria for left ventricular hypertrophy Abnormal ECG Confirmed by ANA WILKERSON, JAGDISH ([id number]), editor book SLADE MORA ([id number]) on 11/09/2019 3:31:27 PM Referred By: MELCHOR Confirmed By:JAGDISH PEREZ MD
--- NOTE | 2019-11-02 17:59 | CT_ITS ---
STUDY: CTA HEAD AND NECK WITH CONTRAST REASON FOR EXAM: Male, 74 years old. CVA RADIATION DOSAGE (If Supplied By Facility): CTDIvol = ( 10.19 ) mGy, DLP = ( 1025.60 ) mGycm TECHNIQUE: CT angiography was performed with a multi-detector CT scanner. Data acquisition was obtained from the skull base through the vertex following intravenous administration of 100ML ISOVUE 370. MIP images were reconstructed from the axial data set. Post-processing of the angiographic images was performed, with multiplanar reformation and 3D reconstruction. Individualized dose optimization techniques were used for this CT. COMPARISON: October 06, 2018 CT angiogram FINDINGS: Normal bilateral petrous carotid arteries. There is partially calcified ectatic elongation and tortuosity of the right cavernous carotid artery without a demonstrated hemodynamically significant stenosis. There is partially calcified ectatic elongation and tortuosity of the left cavernous carotid artery without a demonstrated hemodynamically significant stenosis. There is a hypoplastic right-sided A1 compared to the left. Normal left A1 segments of the anterior cerebral artery. There is a minimal central A1 segment or take off from the proximal left A1. Normal bilateral A2 segments of the anterior cerebral arteries. Normal right M1 and M2 segments of the middle cerebral arteries, with a normal M1 bifurcation. Normal left M1 and M2 segments of the middle cerebral arteries, with a normal M1 bifurcation. There is vague demonstration of a possible hypoplastic right side posterior communicating artery partially visualized versus a small incidental vein. There is a subtle hypoplastic appearing vessel it may represent a very subtle left-sided posterior communicating artery appear There is trace calcification of the proximal right vertebral artery. There is tortuosity. O there is a fusiform distended appearance of the basilar artery with a prominent focal confluence of the tip of the basilar artery. The right-sided posterior cerebral artery extends from the posterior aspect of the tip of the basilar confluence with tortuosity. There is slight focal narrowing of the vessel not seen on prior study allowing for differences in technique. The right side superior cerebellar artery appears dominant when compared to the left and has a takeoff opposite of the left side posterior cerebral artery. This is a variant. Otherwise, Normal bilateral P1, P2 and visualized P3 segments of the posterior cerebral arteries. When compared to prior study October 06, 2018 there are newly visualized focal low attenuating areas within the left side basal ganglia and within the periventricular white matter. A focal area of acute infarct that measured approximately 5 mm adjacent to the left frontal horn is not with well-visualized on CT. AORTIC ARCH: The aorta appears tortuous. The ascending thoracic aorta measures 3.4 x 3.2 cm as visualized. There are nonspecific visualized subcentimeter mediastinal lymph nodes. The takeoff of the left common carotid artery is not well-visualized. This is reviewed on prior studies were also is not well visualized possibly shadowing possibly due to focal narrowing. RIGHT CAROTID ARTERIES: There is atherosclerotic tortuous elongation of the right common carotid artery. Normal right common carotid bulb. There is minimal peripheral plaque formation. There is less than 50% stenosis per There is atherosclerotic tortuous elongation of the cervical portion of the right internal carotid artery. Normal origin of the right external carotid artery (ECA). LEFT CAROTID ARTERIES: Mentioned above the left common carotid artery takeoff is not well-visualized on this study. Courses tortuous and extends nearly parallel to the left side subclavian. Normal left common carotid bulb. Normal origin of the left internal carotid (ICA) artery without a hemodynamically significant stenosis. There is atherosclerotic tortuous elongation of the cervical portion of the left internal carotid artery. Normal origin of the left external carotid artery (ECA). VERTEBRAL ARTERIES: There is a tortuous appearance of the left vertebral artery with a hairpin turn. There is degenerative change within the cervical spine. There is facet arthropathy. There is mild narrowing of the right neural foramen at C2-C3, C3-C4 bilaterally C4-C5. At C5-C6 there is disc space narrowing spondylosis with moderate left neural foramina narrowing. There is mild to moderate neural foramina narrowing C6-C7. There is trace groundglass opacity in the upper lung zones. There is visualized mild to moderate cardiomegaly with coronary artery disease. CT/CTA Head AND Neck W/ Contrast IMPRESSION: Stable appearing vessels since multiple prior studies dating back to April 21, 2012. 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 The tip of the basilar artery confluence measures up to 0.6 x 0.5 cm. There is a variant takeoff of the posterior cerebral artery from the posterior aspect of the vertebral body. At that point there is mild mild to moderate stenosis of the posterior cerebral artery. This could potentially be further characterized by MRA of the brain and/or additional 3-D postprocessing imaging of this study. The time of this study 3-D postprocessing imaging was not performed. Reconstructed 3-D MIP imaging was performed. Variant anatomy of the [place] of [place]. This appears stable since prior study. There is no visualized significant focal areas of stenosis. There are new areas of left-sided basal ganglia lacunar infarcts since prior study October 06, 2018. The left-sided periventricular small lacunar infarct described in today''s MRI study at 12:24 PM is not well-visualized on this study. Electronically Signed: Angela Kruse MD at 19:52 EDT Tel , Service support ,
--- NOTE | 2019-11-02 18:01 | CT_ITS ---
We are attempting to reach an attending provider to discuss findings. An addendum with communication details will be sent when the communication is complete. STUDY: CT BRAIN WITHOUT CONTRAST REASON FOR EXAM: Male, 74 years old. CVA RADIATION DOSAGE (If Supplied By Facility): CTDIvol = ( 60.81 ) mGy, DLP = ( 1067.08 ) mGycm TECHNIQUE: Transaxial CT imaging of the brain was performed without administration of intravenous contrast material. Individualized dose optimization techniques were used for this CT. COMPARISON: CT had 10/06/2018 and MRI brain same day FINDINGS: Normal soft tissue structures. Normal calvarium. There are stable central and cortical involutional changes. There are stable deep white matter periventricular hypodensities. Stable subcentimeter hypodensity within the bilateral basal ganglia. There is small subcentimeter hypodensity left periventricular white matter. Normal cerebellum. There is no intracranial hemorrhage. There are stable subcentimeter hypodensity within the monica. Normal visualized paranasal sinuses. There is stable deformity right zygoma due to old fracture. CT/Brain/Head without Contrast IMPRESSION: Stable central and cortical involutional changes Stable old deep white matter ischemia, stable old ischemic changes within the basal ganglia, stable subcentimeter hypodensity left frontal lobe deep white matter corresponding to acute lacunar infarct on MRI brain Stable old ischemic changes within the monica Electronically Signed: Yohannes Talbert, at 18:26 EDT Tel , Service support ,
[2019-11-02 18:16] LABS: Absolute Lymphocyte Count 1.33 X10^3/uL (0.83-4.51); Absolute Neutrophil Count 5.7 X10^3/uL (2.0-7.7); Basophil# 0.05 X10^3/uL; Basophil% 0.6 % (0-1); Eosinophil# 0.17 X10^3/uL; Eosinophils% 2.1 % (0-5); Hematocrit 36.3 % (40-54); Hemoglobin 12.1 g/dL (13.0-16.5); Lymphocyte # 1.33 X10^3/ul (4.0); Lymphocyte % 16.3 % (19-41); Mean Corp Hgb Conc 33.3 g/dL (32-36); Mean Corpuscular Hgb 28.3 pg (27.0-32.0); Mean Platelet Vol. 8.7 fl (6.2-12.0); Monocyte# 0.85 X10^3/uL; Monocyte% 10.4 % (0-10); NRBC Flagged by Analyzer 0 % (0-5); Neutrophil # 5.72 X10^3/uL (2.7-7.7); Platelet Count 207 K/mm3 (150-450); RBC Distribution Width CV 13.4 % (11.6-14.6); RBC Distribution Width SD 41.5 fl (35.1-43.9); Red Blood Count 4.27 M/mm3 (4.6-6.2); White Blood Count 8.2 K/mm3 (4.4-11.0)
[2019-11-02 18:25] LABS: Bedside Glucose 156 mg/dL (70-110)
[2019-11-02 18:31] LABS: Anion Gap 10 (5-15); BUN 10 mg/dL (7-18); Calcium,Total 9.3 mg/dL (8.5-10.1); Chloride 97 mmol/L (98-107); Creatinine, Serum 0.83 mg/dL (0.70-1.30); EST Glomerular Filtration Rate 96 mL/min (>60); Est Glom Filt Rate - Afr Amer 116 mL/min (>60); Glucose 140 mg/dL (74-106); Potassium 4.1 mmol/L (3.5-5.1); Sodium Level 132 mmol/L (136-145)
--- NOTE | 2019-11-02 18:40 | ED.DCSUM_ITS ---
- ER Visit Summary Date of Service: 11/02/19 Chief Complaint: Stroke History of Present Illness: The patient is a 74 M presenting with abnormal MRI results. Patient states he has been generally weak for the past 2 months. States he has been having trouble ambulating and has to hold onto a wall to walk. He states this is no different than it has been for the past 2 months. He states he has had syncopal episodes multiple times over the past couple of weeks. Per family he has had balance and personality changes. He was seen by his primary care physician today and had a outpatient MRI that showed acute stroke. He was sent to the ED for further evaluation. Physical Examination: Vitals are stable. Patient is afebrile. Alert no acute distress. HEENT exam is unremarkable. Neck is supple. Lungs are clear and equal bilaterally. Heart is regular rate and rhythm. Abdomen is soft nontender nondistended. Extremities are unremarkable. Skin is warm and dry. No focal neurologic deficit. NIH 0 Remainder of exam is unremarkable. Emergency Department Course and Treatment: MRI brain shows involutional changes of the brain. Acute subcentimeter infarct of the periventricular white matter of the left frontal lobe. Discussed with [facility] neurology on patient's arrival. Recommend CTA head and neck. Recommend admission to [facility] if patient does not have LVO. CT head shows stable central and cortical involutional changes. Stable old deep white matter ischemia, stable old ischemic changes within the basal ganglia, stable subcentimeter hypodensity left frontal lobe deep white matter corresponding to acute lacunar infarct on MRI brain. Stable old ischemic changes within the monica. CBC, chemistries unremarkable other than sodium 132, glucose 140. Troponin is negative. EKG is sinus rhythm rate of 83 with no acute ischemic changes. CTA head and neck show stable appearing vessels since multiple prior studies dating back to April 21, 2012. 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 The tip of the basilar artery confluence measures up to 0.6 x 0.5 cm. There is a variant takeoff of the posterior cerebral artery from the posterior aspect of the vertebral body. At that point there is mild to moderate stenosis of the posterior cerebral artery. This could potentially be further characterized by MRA of the brain and/or additional 3-D postprocessing imaging of this study. The time of this study 3-D postprocessing imaging was not performed. Reconstructed 3-D MIP imaging was performed. Variant anatomy of the [place]. This appears stable since prior study. There is no visualized significant focal areas of stenosis. There are new areas of left-sided basal ganglia lacunar infarcts since prior study October 06, 2018. The left-sided periventricular small lacunar infarct described in today''s MRI study at 12:24 PM is not well-visualized on this study. Discussed with patient's son. He is agreeable to admission to [facility]. Will discuss with the hospitalist for admission. Disposition: Admission Impression: Acute CVA This note was generated with [employer] dictation software. It may contain incorrect words, spelling, and punctuation that were not noted in review of the chart prior to signing ED Disposition - Plan for ED Patient: Referrals: Diamond Acevedo MD [Primary Care Provider] -
--- NOTE | 2019-11-02 20:32 | PCM.HP.STD ---
Problem List (1) Acute CVA (cerebrovascular accident) Status: Acute (2) HTN (hypertension) Status: Chronic Qualifiers: Hypertension type: essential hypertension Qualified Code(s): I10 - Essential (primary) hypertension (3) HLD (hyperlipidemia) Status: Chronic Qualifiers: Hyperlipidemia type: unspecified Qualified Code(s): E78.5 - Hyperlipidemia, unspecified (4) Anxiety and depression Status: Chronic (5) CVA (cerebral vascular accident) Status: Chronic Qualifiers: CVA mechanism: thrombosis Precerebral and cerebral artery: middle cerebral artery Laterality of affected vessel: left Qualified Code(s): I63.312 - Cerebral infarction due to thrombosis of left middle cerebral artery (6) BPH (benign prostatic hyperplasia) Status: Chronic Qualifiers: Lower urinary tract symptom presence: unspecified whether lower urinary tract symptoms present Qualified Code(s): N40.0 - Benign prostatic hyperplasia without lower urinary tract symptoms (7) Diabetes mellitus Status: Chronic Qualifiers: Diabetes mellitus type: type 2 Diabetes mellitus longterm insulin use: without longterm use Diabetes mellitus complication status: with other specified complication Qualified Code(s): E11.69 - Type 2 diabetes mellitus with other specified complication Comment: newly diagnosed, type II History of Present Illness Date of Admission: 11/02/19 Chief Complaint: Neurological symptoms x 3 months, MRI on day of ED presentation with involutional changes of the brain with an acute subcentimeter infarct of the periventricular white matter of the left frontal lobe The patient is a 74 y/o M w/ PMHx: Hx prior L MCA CVA, HTN, HLD, Diabetes mellitus type II, BPH, Anxiety and Depression who presents to the [facility] ED on 11/02/19 with history of ongoing difficulty walking over the last 2 to 3 months with description consistent with ataxia with history of concurrent intermittent vertiginous symptoms with associated nausea and occasional emesis with recent EGD performed the Friday prior to current presentation secondary to the symptoms per PCP direction with unremarkable findings at that time in addition to son reported personality change as well as questionable syncopal events which patient reports have been happening frequently over the last several months but cannot give great description and son denies ever having witnessed these with whom he lives with PCP concern for alternate etiology prompting MRI of the brain on 11/01/2019 with noted subacute stroke at that time with referral to the ED. MRI on day of ED presentation with involutional changes of the brain with an acute subcentimeter infarct of the periventricular white matter of the left frontal lobe. Recent 07/22/19 ECHO w/ normal LV size, normal LV systolic function, EF 60%, stage I diastolic dysfunction, mild TBI with contrast injection performed. Work-up in the ED included T 97.7, heart rate 98, BP initially 109/77, respiratory rate 18, 98% on room air, CBC with WBC 8.2, hemoglobin 12.1, platelet 207 without market shift but noted mild lymphopenia however absolute level normal, BMP with sodium 132, chloride 97, glucose 140, troponin less than 0.015, CT of the brain with stable central and cortical involutional changes with a stable old deep white matter ischemia, stable old ischemic changes within the basal ganglia, stable subcentimeter hypodensity in the left frontal lobe with deep white matter corresponding to an acute lacunar infarct on MRI of the brain, stable old ischemic changes within the monica, CTA of the head and neck with stable appearing vessels since multiple prior studies dating back toward 2011, 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 Past Medical History Past Medical History (Chronic Problems): Chronic Problems (Last Reviewed 08/11/19 @ 14:[address] Imani Childers MD) HTN (hypertension) (Chronic) HLD (hyperlipidemia) (Chronic) Anxiety and depression (Chronic) CVA (cerebral vascular accident) (Chronic) BPH (benign prostatic hyperplasia) (Chronic) Diastolic dysfunction, left ventricle (Chronic) Diabetes mellitus (Chronic) newly diagnosed, type II Ventral hernia (Chronic) Medical History: Medical History (Last Reviewed 08/11/19 @ 14:[address] Imani Childers MD) Shortness of breath (Acute) R06.02 CVA (cerebral vascular accident) (Chronic) I63.9 BPH (benign prostatic hyperplasia) (Chronic) N40.0 Diabetes mellitus (Chronic) E11.9 newly diagnosed, type II Allergies No Known Allergies Allergy (Verified 11/02/19 17:26) Home Medications: Ambulatory Orders Medication Instructions Recorded Clopidogrel Bisulfate [Plavix] 75 mg PO DAILY #30 tab 10/15/18 glipiZIDE [Glucotrol] 5 mg PO BIDCM #60 tab 10/15/18 atorvastatin 40 mg tablet 40 mg PO DAILY 10/29/18 trazodone 50 mg tablet 50 mg PO QHS 10/29/18 aspirin 81 mg tablet,delayed 81 mg PO DAILY@0800 02/10/19 release tamsulosin 0.4 mg capsule 0.8 mg PO QHS cap 02/10/19 Bupropion HCl 75 mg PO DAILY 11/02/19 Losartan Potassium [Cozaar] 25 mg PO DAILY 11/02/19 metFORMIN (XR) [Glucophage Xr] 500 mg PO BID 11/02/19 Surgical History: Surgical History (Last Reviewed 08/11/19 @ 14:[address] Imani Childers MD) History of tonsillectomy (Resolved) Z90.89 Surgical History: tonsillectomy Psychiatric History: Anxiety, Depression Lives: With Family - Patient lives with his son. Smoking Status: Never smoker Tobacco Use: Non-smoker Alcohol: None Drugs: None - *Family History Maternal Family History: Family History (Last Reviewed 08/11/19 @ 14:[address] Imani Childers MD) Mother Myocardial infarction History Items: Heart Disease Paternal Family History: Family History (Last Reviewed 08/11/19 @ 14:[address] Imani Childers MD) Mother Myocardial infarction History Items: - - Patient denies any market maternal or paternal family history including heart disease, diabetes or cancer. Sibling Family History: Family History (Last Reviewed 08/11/19 @ 14:[address] Imani Childers MD) Mother Myocardial infarction History Items: - - bells palsy - brother Review of Systems Constitutional: Reports: Weakness, Fatigue. Denies: Anorexia, Chills, Fever, Malaise, Weight Change HEENT: Denies: Head Aches, Sinus Congestion, Sinus Drainage Cardiovascular: Reports: Syncope - Reported per patient but son with whom he lives denies.. Denies: Chest Pain, Chest Pressure, Chest Tightness, Light Headedness, Palpitations Respiratory: Denies: Cough, Shortness of breath at rest, Sputum production Gastrointestinal: Reports: Nausea, Vomiting. Denies: Abdominal Pain Genitourinary: Denies: Dysuria Musculoskeletal: Denies: Joint Pain, Joint Tenderness Skin: Denies: Rash, Wounds Neurological: Reports: Balance problems, - - Behavioral changes, Vertigo. Denies: Focal weakness, Numbness, Tingling Psychiatric: Reports: Anxiety, Depression. Denies: Homicidal Ideations, Suicidal Ideations Hematologic/ Lymphatic: Reports: Easy Bruising, Easy Bleeding VTE Information - Inpt Only VTE Present on Admission: No VTE Mechan Device Prophylaxis: SCD's VTE Pharm Prophylaxis ordered?: Yes Patient Problems: Active and Suspected Problems (Last Reviewed 08/11/19 @ 14:[address] Imani Childers MD) Acute CVA (cerebrovascular accident) (Acute) Subjective: Patient seated upright in the ED bed, no acute distress, eating food noting he is extremely hungry. Objective: Physical Examination: General: awake, alert, oriented to self, place and recent events as well as president, remains currently cooperative, seated upright in the ED bed in no apparent distress. Skin: normal color, turgor, no icterus, cyanosis. HEENT: AT/NC, EOMI, PERRLA, mildly dry MM, no carotid bruits or JVD noted. Lungs: CTA bilaterally, moderate effort, moderate decrease BL bases, no rales, ronchi or wheezing. Heart: Regular rate and rhythm; no gallop, rub audible. Abdomen: soft, NTTP, ND, normal BS, no HSM. Extremities: no cyanosis, clubbing, mild bilateral ankle edema. Neurological: patient awake, alert, oriented as noted; cognitive function appears intact however son does note behavioral changes; pupils equally reactive to light and accomodation; cranial nerves II-XII grossly normal, moving all 4 extremities, equivocal Babinski, finger-nose and heel pike appropriate, strength moderately globally decreased bilaterally, patient subjectively intact, no obvious aphasia. Psychiatric: affect appears normal, no acute evidence of depressive or anxiety feelings. - Physical Exam Vitals/I&O's: Vital Signs Temp Pulse Resp BP Pulse Ox 97.9 F 80 20 H 143/96 H 98 11/02/19 18:11 11/02/19 19:56 11/02/19 19:56 11/02/19 19:56 11/02/19 19:56 Oxygen Delivery Method Room Air Weight: 148 lb 12.992 oz Body Mass Index (BMI) 23.3 Finger Stick Blood Glucose 156 Laboratory Results 11/02/19 18:05: WBC 8.2, RBC 4.27 L, Hgb 12.1 L, Hct 36.3 L, MCV 85.0, MCH 28.3, MCHC 33.3, RDW Std Deviation 41.5, RDW Coeff of Brunilda 13.4, Plt Count 207, MPV 8.7, Immature Gran % (Auto) 0.600, Neut % (Auto) 70.0, Lymph % (Auto) 16.3 L, [place] % (Auto) 10.4 H, Eos % (Auto) 2.1, Baso % (Auto) 0.6, Absolute Neuts (auto) 5.7, Absolute Lymphs (auto) 1.33, Nucleated RBC % 0 11/02/19 18:05: Sodium 132 L, Potassium 4.1, Chloride 97 L, Carbon Dioxide 25.0, Anion Gap 10, BUN 10, Creatinine 0.83, Estim Creat Clear Calc 71.90, Est GFR (MDRD) Af Amer 116, Est GFR (MDRD) Non-Af 96, BUN/Creatinine Ratio 12.0, Glucose 140 H, Calcium 9.3, Troponin I < 0.015 11/02/19 18:18: POC Glucose 156 H Assessment/Plan All Active Problems (Last Reviewed 08/11/19 @ 14:[address] Imani Childers MD) Acute CVA (cerebrovascular accident) (Acute) Shortness of breath (Acute) History of tonsillectomy (Resolved) Hyponatremia (Acute) Debility (Acute) Chest pain (Acute) The patient is a 74 y/o M w/ PMHx: Hx prior L MCA CVA, HTN, HLD, Diabetes mellitus type II, BPH, Anxiety and Depression who presents to the [facility] ED on 11/02/19 with history of ongoing difficulty walking over the last 2 to 3 months with description consistent with ataxia with history of concurrent intermittent vertiginous symptoms with associated nausea and occasional emesis with recent EGD performed the Friday prior to current presentation secondary to the symptoms per PCP direction with unremarkable findings at that time in addition to son reported personality change as well as questionable syncopal events which patient reports have been happening frequently over the last several months but cannot give great description and son denies ever having witnessed these with whom he lives with PCP concern for alternate etiology prompting MRI of the brain on 11/01/2019 with noted subacute stroke at that time with referral to the ED. 1. Acute Left Frontal Lobe CVA w/ Vertigo, Ataxia: MRI on day of ED presentation with involutional changes of the brain with an acute subcentimeter infarct of the periventricular white matter of the left frontal lobe, ED stroke call with CT of the brain with stable central and cortical involutional changes with a stable old deep white matter ischemia, stable old ischemic changes within the basal ganglia, stable subcentimeter hypodensity in the left frontal lobe with deep white matter corresponding to an acute lacunar infarct on MRI of the brain, stable old ischemic changes within the monica, CTA of the head and neck with stable appearing vessels since multiple prior studies dating back toward 2011, 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, tip of the basilar artery confluence measuring 0.6 x 0.5 cm, variant takeoff of the posterior cerebral artery from the posterior aspect of the vertebral body and noted at that point mild to moderate stenosis of the posterior cerebral artery variant anatomy of the quileute of Steen stable since prior study with no visualized significant focal areas of stenosis with new areas of left-sided basal ganglia lacunar infarct since prior study October 06, 2018 with left-sided periventricular small lacunar infarct described on MRI of the brain, EKG w/ SR without acute evidence of ischemia, recent 07/22/19 ECHO w/ normal LV size, normal LV systolic function, EF 60%, stage I diastolic dysfunction, mild TBI with contrast injection performed. Of note patient did have outpatient follow-up with cardiology and wore a 30-day event monitor with no evidence of arrhythmia given history of prior stroke. Will admit to PCU, obtain PT/OT/Speech/Nutrition evaluation per protocol. May need to consider full anticoagulation given recurrent CVA despite dual antiplt therapy. Will allow permissive HTN given subacute comments, maintain on asa/plavix, statin w/ AM FLP, fall precautions. Will obtain HgbA1c, mag, TSH, FLP as noted. Will benefit from acute rehab at discharge. 2. Diabetes mellitus type II: Hold oral home regimen, continue home insulin regimen, ADA diet, accu checks w/ ISS. 3. Hypertension: We will do permissive hypertension given subacute comments, resume clinically appropriate with PRN agents as needed. 4. Hyperlipidemia: Continue home statin regimen. AM FLP. 5. Anxiety and depression: We will continue patient home bupropion and trazodone regimen. 6. BPH: We will continue patient home Flomax regimen. 7. DVT prophylaxis: SCDs, Lovenox. 8. CODE status: Patient NAZ is his son with whom he lives and living will is currently in place. Discussed CODE status at length including difference between FULL code, DNR-CCA and DNR-CC status. Following discussions about the differences in these status, requested Full code status. Advanced Care Planning Face to Face Time: 16 minutes. Inpatient E&M: 05007 Init Hosp L3 Procedures: 04371 Advncd Care Plan 30 Min
[2019-11-02 22:33] LABS: Magnesium 1.4 mg/dL (1.6-2.6); T4 Free Direct 0.98 ng/dL (0.76-1.46); Thyroid Stim Hormone (TSH) 1.23 uIU/mL (0.358-3.74)
[2019-11-02 22:40] LABS: Hemoglobin A1c 5.4 % (3.8-5.6)
[2019-11-02] MEDS: Tamsulosin HCl 0.4 MG Capsule 0.8 MG PO (23:15)
[2019-11-02] MEDS: traZODone 50 MG Tablet PO (23:15)
[2019-11-02] MEDS: 0.9% Normal Saline 1,000 ML 100 ML IV (23:16)
[2019-11-02] MEDS: Famotidine 20 MG Tablet PO (23:24)
[2019-11-02] MEDS: 0.9% Saline Lock 10 ML Syringe IV (23:25)
[2019-11-03] VITALS (9 sets, daily range): BP systolic 102–144; BP diastolic 71–97; PULSE 62–77; RESP 12–16; TEMP 36.4–36.7; O2SAT 95–100; BMI 22.7
[2019-11-03 00:20] LABS: Bedside Glucose 143 mg/dL (70-110)
[2019-11-03 05:43] LABS: Absolute Neutrophil Count 5.4 X10^3/uL (2.0-7.7); Basophil# 0.08 X10^3/uL; Eosinophil# 0.25 X10^3/uL; Eosinophils% 3.1 % (0-5); Hematocrit 34.7 % (40-54); Hemoglobin 11.6 g/dL (13.0-16.5); Lymphocyte % 16.3 % (19-41); Mean Corp Hgb Conc 33.4 g/dL (32-36); Mean Corpuscular Hgb 28.3 pg (27.0-32.0); Mean Corpuscular Volume 84.6 fL (80-94); Mean Platelet Vol. 8.9 fl (6.2-12.0); Monocyte# 0.92 X10^3/uL; Monocyte% 11.5 % (0-10); NRBC Flagged by Analyzer 0 % (0-5); Neutrophil # 5.39 X10^3/uL (2.7-7.7); Neutrophil % 67.6 % (47-70); Platelet Count 203 K/mm3 (150-450); RBC Distribution Width CV 13.3 % (11.6-14.6); RBC Distribution Width SD 41.4 fl (35.1-43.9)
[2019-11-03 06:02] LABS: ALB/GLOB Ratio 0.9 RATIO (0.9-2.4); AST(SGOT) 29 U/L (15-37); Alanine Aminotransfer ALT/SGPT 41 U/L (16-61); Alkaline Phosphatase 59 U/L (45-117); Anion Gap 8 (5-15); BUN 8 mg/dL (7-18); BUN/Creat Ratio 11.6 RATIO (10-20); Calcium,Total 8.9 mg/dL (8.5-10.1); Chloride 100 mmol/L (98-107); Cholesterol 82 mg/dL (200); Creatinine, Serum 0.69 mg/dL (0.70-1.30); EST Glomerular Filtration Rate 119 mL/min (>60); Est Glom Filt Rate - Afr Amer 144 mL/min (>60); Estimated Creatinine Clearance 59.49 ml/min; Globulin 3.3 g/dL (2.2-4.2); Glucose 107 mg/dL (74-106); High Density Lipoprotein 45 mg/dL; Potassium 3.8 mmol/L (3.5-5.1); Protein, Total 6.3 g/dL (6.4-8.2); Sodium Level 132 mmol/L (136-145); Triglycerides 57 mg/dL; Very Low Density Lipoprotein 11 mg/dL (5-40)
[2019-11-03 07:10] LABS: Bedside Glucose 112 mg/dL (70-110)
[2019-11-03] MEDS: Famotidine 20 MG Tablet PO (09:43)
[2019-11-03] MEDS: Glucerna Shake 120 ML LIQUID PO (09:43)
[2019-11-03] MEDS: Aspirin E.C. 81 MG Tablet PO (09:43)
[2019-11-03] MEDS: buPROPion 75 MG Tablet PO (09:43)
[2019-11-03] MEDS: Clopidogrel Bisulfate 75 MG Tablet PO (09:43)
[2019-11-03] MEDS: Enoxaparin 40 MG/0.4 ML Syringe SC (09:43)
[2019-11-03] MEDS: 0.9% Normal Saline 1,000 ML 100 ML IV (09:48)
--- NOTE | 2019-11-03 11:50 | ECHOD_ITS ---
Reason For Study: ACUTE CVA Procedure This was a 2D Doppler, Color Flow transthoracic echocardiogram. The study was technically difficult. PT was moving around throughout exam, refused to lie still. Exam performed portable in patient room. Left Ventricle Normal LV size. The estimated ejection fraction is 60 %. No evidence for diastolic dysfunction. No regional wall motion abnormalities noted. Right Ventricle Normal RV size. Normal systolic function. Atria Normal left atrium. Normal right atrium. No doppler evidence for ASD. Mitral Valve There is no mitral valve stenosis. No mitral valve insufficiency. Tricuspid Valve There is no tricuspid stenosis. Trivial tricuspid valve insufficiency. Unable to estimate RV systolic pressure due to insufficient tricuspid regurgitant envelope. Aortic Valve Trisinus/trileaflet aortic valve. There is no aortic stenosis. No aortic valve insufficiency. Pulmonic Valve There is no pulmonic valvular stenosis. No pulmonic valve insufficiency. Great Vessels Normal aortic root. Pericardium/Pleural No pericardial effusion. MMode/2D Measurements & Calculations LVIDd: 4.8 cm IVSd: 0.96 cm Ao root diam: 3.8 cm LVIDs: 3.0 cm LVPWd: 1.1 cm RVDd: 3.6 cm FS: 37.2 % LAV(MOD-bp): 34.1 ml LA A4 area: 14.5 cm2 LA dimension(2D): 3.8 cm LAV(MOD-bp) Indexed: 19.3 ml/m2 LAV(MOD-sp2): 33.4 ml LAV(MOD-sp4): 33.3 ml RA A4 area: 11.1 cm2 Time Measurements MV dec time: 0.16 sec Doppler Measurements & Calculations MV E max steven: 58.2 cm/sec Med Peak E' Steven: 5.4 cm/sec Ao V2 max: 102.4 cm/sec MV A max steven: 68.0 cm/sec E/E' med: 10.7 Ao max P.2 mmHg MV E/A: 0.86 LV V1 max: 78.1 cm/sec PA V2 max: 92.2 cm/sec TR max steven: 221.7 cm/sec LV V1 max P.4 mmHg TR max P.7 mmHg Interpretation Summary The estimated ejection fraction is 60 %. No evidence for diastolic dysfunction. Trivial tricuspid valve insufficiency. Ordering Physician: Clay Anthony Referring Physician: Diamond Acevedo Performed By: Nela Boyd, BRAD, RVT
[2019-11-03] MEDS: Insulin Lispro 100 UNIT/ML INSULN.PEN SC (12:02)
--- NOTE | 2019-11-03 12:04 | CASEMGMT ---
Assessment- SW completed assessment with patient at bedside. Patient is difficult to understand so SW did clarify information with his daughter in law via phone with patient's permission. SW also verified contacts and their information. Living situation- Patient lives with his son and her in a 2 story home with entry steps. Patient said he is set up on the first floor. PCP: Dr Acevedo with [facility] Specialists: Per patient and his daughter in law he does see specialists but not aware of names. Pharmacy: [facility] [place] DME: None ADL's/IADL's: Per patient and his daughter in law he is mostly independent. He rarely drives. He bathes himself and manages his own meds. Past SNF/rehab: [facility] 4th floor rehab unit Past HH: None LW: None POA: None. Plan: Patient is interested in going to [facility] 4th floor rehab unit if it is recommended. Await PT/OT evaluations Amber PAREKH [employer]
--- NOTE | 2019-11-03 12:10 | CASEMGMT ---
SW completed a PHQ9 with patient as he had a Stroke. He scored a 3 which indicates minimal Depression. Amber PAREKH MSW
--- NOTE | 2019-11-03 12:53 | CASEMGMT ---
Patient and family are open to [facility] 4th floor Rehab Unit. ABIMAEL spoke with Samara and she spoke with Dr Dickinson. They will accept patient in the Rehab Unit. ABIMAEL notified Clay LAGUNAS. Patient may be discharged today. Amber TORRES
[2019-11-03 12:55] LABS: Bedside Glucose 206 mg/dL (70-110)
--- NOTE | 2019-11-03 15:02 | DCINST_ITS ---
- Discharge Diagnoses Current Active Problems: Current Active and Chronic Problems (Last Reviewed 08/11/19 @ 14:[address] Imani Childers MD) HTN (hypertension) (Chronic) HLD (hyperlipidemia) (Chronic) Anxiety and depression (Chronic) Acute CVA (cerebrovascular accident) (Acute) You will use the following diet at home:: Calorie/Carbohydrate Controlled (specify 1200, 1400, etc) - 1800 renetta / day, Cardiac Your food should be the consistency of: Regular Your liquids should be the consistency of: Regular/Thin Discharge Activity: - - as directed by rehab facility Allergies/Adverse Reactions: Allergies No Known Allergies Allergy (Verified 11/02/19 17:26) Medications to take at Discharge Clopidogrel Bisulfate [Plavix] 75 mg PO DAILY #30 tab 10/15/18 glipiZIDE [Glucotrol] 5 mg PO BIDCM #60 tab 10/15/18 atorvastatin 40 mg tablet 40 mg PO DAILY 10/29/18 trazodone 50 mg tablet 50 mg PO QHS 10/29/18 aspirin 81 mg tablet,delayed release 81 mg PO DAILY@0800 02/10/19 tamsulosin 0.4 mg capsule 0.8 mg PO QHS cap 02/10/19 Bupropion HCl 75 mg PO DAILY 11/02/19 Losartan Potassium [Cozaar] 25 mg PO DAILY 11/02/19 metFORMIN (XR) [Glucophage Xr] 500 mg PO BID 11/02/19 Primary Care Physician: Diamond Acevedo MD [Primary Care Provider] - Please follow up with your Primary Care Physician in: 2 weeks Test Results: Test results from this visit will be discussed in further detail at your follow- up appointment, if applicable. Please Follow Up With: Theodore Mcneal MD When: 4 weeks Please Follow Up With: Tristen Quach MD - Loop Recorder, call for appointment When: Call for appointment Proposed Discharge Date: 11/03/19
--- NOTE | 2019-11-03 15:10 | DS.PCM_ITS ---
<Clay Anthony - Last Filed: 11/03/19 15:10> Discharge Date and Diagnosis - Problem List Patient Problems: Active and Suspected Problems (Last Reviewed 08/11/19 @ 14:[address] Imani Childers MD) Acute CVA (cerebrovascular accident) (Acute) Date of Admission: 11/02/19 Date of Discharge: 11/03/19 - Primary Discharge Diagnosis Acute Problems: Active Problems (Last Reviewed 08/11/19 @ 14:[address] 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 Imani Childers MD) HTN (hypertension) (Chronic) HLD (hyperlipidemia) (Chronic) Anxiety and depression (Chronic) CVA (cerebral vascular accident) (Chronic) BPH (benign prostatic hyperplasia) (Chronic) Diastolic dysfunction, left ventricle (Chronic) Diabetes mellitus (Chronic) newly diagnosed, type II Ventral hernia (Chronic) Hospital Course and Treatment Imaging Results: IMAGIN11/03/19 11:50 Echo Complete [ECHO] Routine Pending at this Time. CT/CTA Head AND Neck W/ Contrast IMPRESSION: Stable appearing vessels since multiple prior studies dating back to April 21, 2012. 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 The tip of the basilar artery confluence measures up to 0.6 x 0.5 cm. There is a variant takeoff of the posterior cerebral artery from the posterior aspect of the vertebral body. At that point there is mild mild to moderate stenosis of the posterior cerebral artery. This could potentially be further characterized by MRA of the brain and/or additional 3-D postprocessing imaging of this study. The time of this study 3-D postprocessing imaging was not performed. Reconstructed 3-D MIP imaging was performed. Variant anatomy of the poarch of Ste[place]. This appears stable since prior study. There is no visualized significant focal areas of stenosis. There are new areas of left-sided basal ganglia lacunar infarcts since prior study October 06, 2018. The left-sided periventricular small lacunar infarct described in today''s MRI study at 12:24 PM is not well-visualized on this study. CT/Brain/Head without Contrast IMPRESSION: Stable central and cortical involutional changes Stable old deep white matter ischemia, stable old ischemic changes within the basal ganglia, stable subcentimeter hypodensity left frontal lobe deep white matter corresponding to acute lacunar infarct on MRI brain Stable old ischemic changes within the monica MRI/Brain W/WO Contrast IMPRESSION: Involutional changes of the brain, as described above. Acute subcentimeter infarct of the periventricular white matter of the left frontal lobe. Consults: Neurology - SOC teleneuro Operations: None Procedures: 2-D Echocardiogram Summary of Care Provided: Hospital Course: The patient is a 74 year old M with pmhx as above notably prior ischemic CVA, prior negative 30 day monitor in the past, on aspirin statin and plavix, who has been experiencing ataxic gait for about the last month. He was also having intermittent vertigo with associated nausea and vomiting. He lives with his son and daughter in law who were also concerned for personality changes and possible syncopal events. He was sent as an outpatient for an MRI of the brain and this revealed an acute infarc of the left frontal lobe. The patient was admitted to the PCU and placed on tele. He had no afib on the monitor here. Tele neuro was consulted and noted that the patient has had both subacute and acute infarcts. Neuro recommended a repeat echo since it has been >3 months since his last and thrombus should be ruled out. The results are pending at this time. CTA showed left sided basal ganglia lacunar infarcts new since prior study, and some vascular changes as noted in the above report. Chris also recommended a loop recorder. I have spoken to his son and daughter in law about making sure he gets seen by cardiology as an outpatient. I called his investigation lieutenant who agreed to have him seen as an outpatient to arrange for a loop recorder. The patient had a 30 day monitor in the past that did not show afib. Neuro recommended in the meantime continue aspirin plavix and statin. The patient continues to have poor balance with ambulation requiring assistance and physical therapy evals recommended further therapy through acute inpatient rehab. He was accepted at the rehab unit and precert was obtained. He was discharged to acute rehab in stable condition. He will need follow up with cardiology as directed - he needs to call for an appointment with Dr. Quach for the Loop recorder. He needs to follow up with neuro in 4 weeks. He will also need routine follow up with his PCP in 2 weeks. Also of note, a1c 5.4, TSH/FT4 negative, troponin negative, mild hyponatremia, mag was low : repleted. This patient was seen by Clay Anthony PA-C under the supervision of Dr. Melgar. [] Patient Problems: Active and Suspected Problems (Last Reviewed 08/11/19 @ 14:[address] Imani Childers MD) Acute CVA (cerebrovascular accident) (Acute) - Physical Exam Vitals/I&O's: Vital Signs Temp Pulse Resp BP Pulse Ox 98.0 F 64 12 112/71 97 11/03/19 11:59 11/03/19 11:59 11/03/19 11:59 11/03/19 11:59 11/03/19 11:59 Oxygen Delivery Method Room Air Weight: 145 lb 4.554 oz Body Mass Index (BMI) 22.7 Finger Stick Blood Glucose 156 Intake and Output for Last 24 Hours 11/01/19 11/02/19 11/03/19 23:59 23:59 23:59 Intake Total 113.33 / 113.33 1535.67 / 1535.67 Balance 113.33 / 113.33 1535.67 / 1535.67 General: Alert, Oriented x3, Cooperative HEENT: Atraumatic, PERRLA, EOMI, Normocephalic Neck: Supple, No JVD, Negative Carotid Bruits Lungs: Clear to auscultation, Normal air movement Cardiovascular: Regular rate, No murmurs Abdomen: Bowel Sounds Present, Soft, Non Tender Extremities: No edema, Capillary Refill Less than 3 Seconds Skin: No rashes, No breakdown Musculoskeletal: No Tenderness to Palpation of Joints or Extremities Neurological: Cranial nerves II-XII grossly intact Psych/Mental Status: Normal Affect, Appropriate, Alert and oriented to time, place, person, mood and affect Laboratory Results 11/02/19 18:05: WBC 8.2, RBC 4.27 L, Hgb 12.1 L, Hct 36.3 L, MCV 85.0, MCH 28.3, MCHC 33.3, RDW Std Deviation 41.5, RDW Coeff of Brunilda 13.4, Plt Count 207, MPV 8.7, Immature Gran % (Auto) 0.600, Neut % (Auto) 70.0, Lymph % (Auto) 16.3 L, Sully % (Auto) 10.4 H, Eos % (Auto) 2.1, Baso % (Auto) 0.6, Absolute Neuts (auto) 5.7, Absolute Lymphs (auto) 1.33, Nucleated RBC % 0 11/02/19 18:05: Sodium 132 L, Potassium 4.1, Chloride 97 L, Carbon Dioxide 25.0, Anion Gap 10, BUN 10, Creatinine 0.83, Estim Creat Clear Calc 71.90, Est GFR (MDRD) Af Amer 116, Est GFR (MDRD) Non-Af 96, BUN/Creatinine Ratio 12.0, Glucose 140 H, Calcium 9.3, Troponin I < 0.015 11/02/19 18:05: Magnesium 1.4 L, TSH 1.23, Free T4 0.98 11/02/19 18:05: Hemoglobin A1c 5.4 11/02/19 18:18: POC Glucose 156 H 11/02/19 23:29: POC Glucose 143 H 11/03/19 05:18: WBC 8.0, RBC 4.10 L, Hgb 11.6 L, Hct 34.7 L, MCV 84.6, MCH 28.3, MCHC 33.4, RDW Std Deviation 41.4, RDW Coeff of Brunilda 13.3, Plt Count 203, MPV 8.9, Immature Gran % (Auto) 0.500, Neut % (Auto) 67.6, Lymph % (Auto) 16.3 L, Sully % (Auto) 11.5 H, Eos % (Auto) 3.1, Baso % (Auto) 1.0, Absolute Neuts (auto) 5.4, Absolute Lymphs (auto) 1.30, Nucleated RBC % 0 11/03/19 05:18: Sodium 132 L, Potassium 3.8, Chloride 100, Carbon Dioxide 24.0, Anion Gap 8, BUN 8, Creatinine 0.69 L, Estim Creat Clear Calc 59.49, Est GFR (MDRD) Af Amer 144, Est GFR (MDRD) Non-Af 119, BUN/Creatinine Ratio 11.6, Glucose 107 H, Calcium 8.9, Magnesium 2.0, Total Bilirubin 0.80, AST 29, ALT 41, Alkaline Phosphatase 59, Total Protein 6.3 L, Albumin 3.0 L, Globulin 3.3, Albumin/Globulin Ratio 0.9, Triglycerides 57, Cholesterol 82, LDL Cholesterol 26, VLDL Cholesterol 11, HDL Cholesterol 45 11/03/19 06:56: POC Glucose 112 H 11/03/19 11:57: POC Glucose 206 H Current Medications Acetaminophen (Tylenol) 650 mg PO Q6H PRN PRN PRN Reason: Pain Score 1-10/Temp > 100.7 F Al Hydroxide/Mg Hydroxide (Mylanta Ii) 30 ml PO Q6H PRN PRN PRN Reason: Gastric Burning Albuterol Sulfate (Ventolin Aerosols) 2.5 mg INHALATION Q2H PRN PRN PRN Reason: SOB/Wheezing Aspirin (Ecotrin) 81 mg PO DAILY@0800 [facility] Last Admin: 11/03/19 09:43 Dose: 81 mg Documented by: Atorvastatin Calcium (Lipitor) 40 mg PO DAILY@2200 [facility] Bupropion HCl (Wellbutrin Tablets) 75 mg PO DAILY [facility] Last Admin: 11/03/19 09:43 Dose: 75 mg Documented by: Clopidogrel Bisulfate (Plavix) 75 mg PO DAILY [facility] Last Admin: 11/03/19 09:43 Dose: 75 mg Documented by: Dextrose (D50w Syringe) 0 gm IV X1 PRN; Protocol PRN Reason: Hypoglycemia Enoxaparin Sodium (Lovenox) 40 mg SC DAILY [facility] Last Admin: 11/03/19 09:43 Dose: 40 mg Documented by: Famotidine (Pepcid) 20 mg PO BID [facility] Last Admin: 11/03/19 09:43 Dose: 20 mg Documented by: Glucagon () 1 mg IM .X1 PRN PRN Reason: Hypoglycemia Guaifenesin (Robitussin) 20 ml PO Q4H PRN PRN PRN Reason: COUGH Hydralazine HCl (Apresoline Iv) 5 mg IV Q30M PRN PRN Reason: to maintain BP goals Sodium Chloride () 1,000 mls @ 100 mls/hr IV .Q10H [facility] Last Admin: 11/03/19 09:48 Dose: 100 mls/hr Documented by: Sodium Chloride () 250 mls @ 15 mls/hr IV .[id number] PRN PRN Reason: Saline Flush Sodium Chloride () 250 mls @ 15 mls/hr IV .[id number] PRN PRN Reason: Additional IVPB Infusion Insulin Human Lispro (Humalog Kwikpen (Bkc)) 0 unit SC ACHS [facility]; Protocol Last Admin: 11/03/19 12:02 Dose: 2 units Documented by: Labetalol HCl (Trandate) 10 - 20 mg IV Q10M PRN PRN PRN Reason: to maintain BP goals Magnesium Hydroxide (Milk Of Magnesia) 30 ml PO DAILY PRN PRN PRN Reason: Constipation Melatonin (Melatonin) 3 mg PO QHS PRN PRN PRN Reason: INSOMNIA Nitroglycerin (Nitrostat) 0.4 mg SUBLINGUAL Q5M PRN PRN Reason: CARDIAC/CHEST PAIN Nutritional Formula (Lactose Free) (Glucerna Shake) 120 ml PO 4X/DAY [facility] Last Admin: 11/03/19 14:37 Dose: Not Given Documented by: Ondansetron HCl (Zofran) 4 mg IV Q8H PRN PRN PRN Reason: NAUSEA/VOMITING Prochlorperazine Edisylate (Compazine Iv) 5 mg IV Q4H PRN PRN PRN Reason: Breakthrough Nausea/Vomiting Psyllium Hydrophilic Mucilloid (Metamucil) 1 packet PO DAILY PRN PRN PRN Reason: Constipation Senna/Docusate Sodium (Senokot-S, Amelia-Colace) 2 tablet PO BID PRN PRN PRN Reason: Constipation Sodium Chloride () 10 - 40 ml IV UD PRN PRN Reason: SALINE FLUSH Last Admin: 11/02/19 23:25 Dose: 10 ml Documented by: Tamsulosin HCl (Flomax) 0.8 mg PO QHS [facility] Last Admin: 11/02/19 23:15 Dose: 0.8 mg Documented by: Throat Lozenges (Cepacol Sore Throat Lozenge) 1 lozenge MUCOUS MEM Q2H PRN PRN PRN Reason: SORE THROAT Trazodone HCl (Desyrel) 50 mg PO QHS [facility] Last Admin: 11/02/19 23:15 Dose: 50 mg Documented by: Discharge Diet: Low fat/ Low Cholesterol, 1800 Calorie Control Diet, 2000 mg Sodium Diet Discharge Activity: - - as directed by rehab facility Home Medications: Medications to take at Discharge Clopidogrel Bisulfate [Plavix] 75 mg PO DAILY #30 tab 10/15/18 glipiZIDE [Glucotrol] 5 mg PO BIDCM #60 tab 10/15/18 atorvastatin 40 mg tablet 40 mg PO DAILY 10/29/18 trazodone 50 mg tablet 50 mg PO QHS 10/29/18 aspirin 81 mg tablet,delayed release 81 mg PO DAILY@0800 02/10/19 tamsulosin 0.4 mg capsule 0.8 mg PO QHS cap 02/10/19 Bupropion HCl 75 mg PO DAILY 11/02/19 Losartan Potassium [Cozaar] 25 mg PO DAILY 11/02/19 metFORMIN (XR) [Glucophage Xr] 500 mg PO BID 11/02/19 Primary Care Physician: Diamond Acevedo MD [Primary Care Provider] - Please follow up with your Primary Care Physician in: 2 weeks Please Follow Up With: Theodore Mcneal MD When: 4 weeks Please Follow Up With: Tristen Quach MD - Loop Recorder, call for appointment When: Call for appointment Disposition: Inpt Rehab Unit/Facility Minutes spent on discharge:: 35 Patient Condition:: Stable Medical Necessity - Tobacco Use Smoking Status: Never smoker Tobacco Use: Non-smoker Meaningful Use Info Meaningful Use Diagnoses (Choose all that apply): Ischemic CVA - CVA Therapy Assessed for PT,OT and/or ST?: Yes - Ischemic Stroke Antithrombotic order at d/c?: Yes Dx of Atrial fib/flutter?: No Statins at discharge?: Yes Primary Dx Acute Ischemic CVA?: Yes IV tPA ordered during stay?: No Reason IV t-PA not ordered: Procedure not Indicated <Karina Melgar - Last Filed: 11/03/19 17:02> Discharge Date and Diagnosis - Primary Discharge Diagnosis Acute Problems: Active Problems (Last Reviewed 08/11/19 @ 14:[address] Imani Childers MD) Acute CVA (cerebrovascular accident) (Acute) - Secondary Discharge Diagnosis Chronic Problems: Chronic Problems (Last Reviewed 08/11/19 @ 14:[address] Imani Childers MD) HTN (hypertension) (Chronic) HLD (hyperlipidemia) (Chronic) Anxiety and depression (Chronic) CVA (cerebral vascular accident) (Chronic) BPH (benign prostatic hyperplasia) (Chronic) Diastolic dysfunction, left ventricle (Chronic) Diabetes mellitus (Chronic) newly diagnosed, type II Ventral hernia (Chronic) Hospital Course and Treatment Imaging Results: 11/03/19 11:50 Echo Complete [ECHO] Routine Summary of Care Provided: Patient seen by Clay Anthony PA-C under my supervision The patient is a 74 year old M with a past medical history as outlined who was admitted through the ED on 11/02/2019 with a complaint of weakness in his lower extremity as well as intermittent vertigo and ataxic gait for the last month. He lives with his son and [id number] and they were also concerned about personality changes and some probable syncopal events. He was sent as an outpatient for MRI which showed an acute infarct of the left frontal lobe so he was admitted to manage for CVA. Tele-stroke was consulted and patient was noted to have both subacute and acute infarcts. 2D echo was done which showed EF of 60% with no evidence of diastolic dysfunction and no regional wall motion abnormalities seen. CTA of the head and neck showed left-sided basal ganglia lacunar infarcts. Neurology recommended a loop recorder to assess for any arrhythmia. He was referred to cardiology to get the loop recorder as he had had a 30-day event monitor in the past which did not show A. fib. Neurology recommended that patient continue aspirin and Plavix as well as statin. Physical therapy evaluated patient and he was skilled to go to the inpatient rehab unit. He was discharged to the rehab unit on 11/03/2019. He is to follow- up with his primary care doctor and also to follow-up with cardiology for the loop recorder. He is to follow-up with neurology and to be referred by his PCP to a neurologist on outpatient basis. Patient seen and examined. He complained of weakness in his lower extremities. Review of systems otherwise negative. Labs and vitals reviewed. HOme meds reviewed and reconciled. O/E: Vital Signs Temp Pulse Resp BP Pulse Ox 98.0 F 74 12 112/71 97 11/03/19 11:59 11/03/19 15:00 11/03/19 11:59 11/03/19 11:59 11/03/19 11:59 [] General: Alert, Oriented x3, Cooperative HEENT: Atraumatic, PERRLA, EOMI, Normocephalic Neck: Supple, No JVD, Negative Carotid Bruits Lungs: Clear to auscultation, Normal air movement Cardiovascular: Regular rate, No murmurs Abdomen: Bowel Sounds Present, Soft, Non Tender Extremities: No edema, Capillary Refill Less than 3 Seconds Skin: No rashes, No breakdown Musculoskeletal: No Tenderness to Palpation of Joints or Extremities Neurological: Cranial nerves II-XII grossly intact; power in LEs is 4/5, power in UEs is 5/5 Psych/Mental Status: Normal Affect, Appropriate, Alert and oriented to time, place, person, mood and affect Plan is for dc to inpatient rehab unit, as above. - Physical Exam Vitals/I&O's: Vital Signs Temp Pulse Resp BP Pulse Ox 98.0 F 74 12 112/71 97 11/03/19 11:59 11/03/19 15:00 11/03/19 11:59 11/03/19 11:59 11/03/19 11:59 Oxygen Delivery Method Room Air Weight: 145 lb 4.554 oz Body Mass Index (BMI) 22.7 Finger Stick Blood Glucose 156 Intake and Output for Last 24 Hours 11/01/19 11/02/19 11/03/19 23:59 23:59 23:59 Intake Total 113.33 / 113.33 1535.67 / 1535.67 Balance 113.33 / 113.33 1535.67 / 1535.67 Laboratory Results 11/02/19 18:05: WBC 8.2, RBC 4.27 L, Hgb 12.1 L, Hct 36.3 L, MCV 85.0, MCH 28.3, MCHC 33.3, RDW Std Deviation 41.5, RDW Coeff of Brunilda 13.4, Plt Count 207, MPV 8.7, Immature Gran % (Auto) 0.600, Neut % (Auto) 70.0, Lymph % (Auto) 16.3 L, Sully % (Auto) 10.4 H, Eos % (Auto) 2.1, Baso % (Auto) 0.6, Absolute Neuts (auto) 5.7, Absolute Lymphs (auto) 1.33, Nucleated RBC % 0 11/02/19 18:05: Sodium 132 L, Potassium 4.1, Chloride 97 L, Carbon Dioxide 25.0, Anion Gap 10, BUN 10, Creatinine 0.83, Estim Creat Clear Calc 71.90, Est GFR (MDRD) Af Amer 116, Est GFR (MDRD) Non-Af 96, BUN/Creatinine Ratio 12.0, Glucose 140 H, Calcium 9.3, Troponin I < 0.015 11/02/19 18:05: Magnesium 1.4 L, TSH 1.23, Free T4 0.98 11/02/19 18:05: Hemoglobin A1c 5.4 11/02/19 18:18: POC Glucose 156 H 11/02/19 23:29: POC Glucose 143 H 11/03/19 05:18: WBC 8.0, RBC 4.10 L, Hgb 11.6 L, Hct 34.7 L, MCV 84.6, MCH 28.3, MCHC 33.4, RDW Std Deviation 41.4, RDW Coeff of Brunilda 13.3, Plt Count 203, MPV 8.9, Immature Gran % (Auto) 0.500, Neut % (Auto) 67.6, Lymph % (Auto) 16.3 L, Sully % (Auto) 11.5 H, Eos % (Auto) 3.1, Baso % (Auto) 1.0, Absolute Neuts (auto) 5.4, Absolute Lymphs (auto) 1.30, Nucleated RBC % 0 11/03/19 05:18: Sodium 132 L, Potassium 3.8, Chloride 100, Carbon Dioxide 24.0, Anion Gap 8, BUN 8, Creatinine 0.69 L, Estim Creat Clear Calc 59.49, Est GFR (MDRD) Af Amer 144, Est GFR (MDRD) Non-Af 119, BUN/Creatinine Ratio 11.6, Glucose 107 H, Calcium 8.9, Magnesium 2.0, Total Bilirubin 0.80, AST 29, ALT 41, Alkaline Phosphatase 59, Total Protein 6.3 L, Albumin 3.0 L, Globulin 3.3, Albumin/Globulin Ratio 0.9, Triglycerides 57, Cholesterol 82, LDL Cholesterol 26, VLDL Cholesterol 11, HDL Cholesterol 45 11/03/19 06:56: POC Glucose 112 H 11/03/19 11:57: POC Glucose 206 H Current Medications Acetaminophen (Tylenol) 650 mg PO Q6H PRN PRN PRN Reason: Pain Score 1-10/Temp > 100.7 F Al Hydroxide/Mg Hydroxide (Mylanta Ii) 30 ml PO Q6H PRN PRN PRN Reason: Gastric Burning Albuterol Sulfate (Ventolin Aerosols) 2.5 mg INHALATION Q2H PRN PRN PRN Reason: SOB/Wheezing Aspirin (Ecotrin) 81 mg PO DAILY@0800 [facility] Last Admin: 11/03/19 09:43 Dose: 81 mg Documented by: Atorvastatin Calcium (Lipitor) 40 mg PO DAILY@2200 [facility] Bupropion HCl (Wellbutrin Tablets) 75 mg PO DAILY [facility] Last Admin: 11/03/19 09:43 Dose: 75 mg Documented by: Clopidogrel Bisulfate (Plavix) 75 mg PO DAILY [facility] Last Admin: 11/03/19 09:43 Dose: 75 mg Documented by: Dextrose (D50w Syringe) 0 gm IV X1 PRN; Protocol PRN Reason: Hypoglycemia Enoxaparin Sodium (Lovenox) 40 mg SC DAILY [facility] Last Admin: 11/03/19 09:43 Dose: 40 mg Documented by: Famotidine (Pepcid) 20 mg PO BID [facility] Last Admin: 11/03/19 09:43 Dose: 20 mg Documented by: Glucagon () 1 mg IM .X1 PRN PRN Reason: Hypoglycemia Guaifenesin (Robitussin) 20 ml PO Q4H PRN PRN PRN Reason: COUGH Hydralazine HCl (Apresoline Iv) 5 mg IV Q30M PRN PRN Reason: to maintain BP goals Sodium Chloride () 1,000 mls @ 100 mls/hr IV .Q10H [facility] Last Admin: 11/03/19 09:48 Dose: 100 mls/hr Documented by: Sodium Chloride () 250 mls @ 15 mls/hr IV .[id number] PRN PRN Reason: Saline Flush Sodium Chloride () 250 mls @ 15 mls/hr IV .[id number] PRN PRN Reason: Additional IVPB Infusion Insulin Human Lispro (Humalog Kwikpen (Bkc)) 0 unit SC ACHS [facility]; Protocol Last Admin: 11/03/19 12:02 Dose: 2 units Documented by: Labetalol HCl (Trandate) 10 - 20 mg IV Q10M PRN PRN PRN Reason: to maintain BP goals Magnesium Hydroxide (Milk Of Magnesia) 30 ml PO DAILY PRN PRN PRN Reason: Constipation Melatonin (Melatonin) 3 mg PO QHS PRN PRN PRN Reason: INSOMNIA Nitroglycerin (Nitrostat) 0.4 mg SUBLINGUAL Q5M PRN PRN Reason: CARDIAC/CHEST PAIN Nutritional Formula (Lactose Free) (Glucerna Shake) 120 ml PO 4X/DAY [facility] Last Admin: 11/03/19 14:37 Dose: Not Given Documented by: Ondansetron HCl (Zofran) 4 mg IV Q8H PRN PRN PRN Reason: NAUSEA/VOMITING Prochlorperazine Edisylate (Compazine Iv) 5 mg IV Q4H PRN PRN PRN Reason: Breakthrough Nausea/Vomiting Psyllium Hydrophilic Mucilloid (Metamucil) 1 packet PO DAILY PRN PRN PRN Reason: Constipation Senna/Docusate Sodium (Senokot-S, Amelia-Colace) 2 tablet PO BID PRN PRN PRN Reason: Constipation Sodium Chloride () 10 - 40 ml IV UD PRN PRN Reason: SALINE FLUSH Last Admin: 11/02/19 23:25 Dose: 10 ml Documented by: Tamsulosin HCl (Flomax) 0.8 mg PO QHS [facility] Last Admin: 11/02/19 23:15 Dose: 0.8 mg Documented by: Throat Lozenges (Cepacol Sore Throat Lozenge) 1 lozenge MUCOUS MEM Q2H PRN PRN PRN Reason: SORE THROAT Trazodone HCl (Desyrel) 50 mg PO QHS [facility] Last Admin: 11/02/19 23:15 Dose: 50 mg Documented by: OBSV E&M: [id number] Observation care discharge
--- NOTE | 2019-11-03 16:20 | CASEMGMT ---
Patient is being discharged to [facility] 4th floor Rehab Unit today. RN called family and notified them of plan. Apparently there was some miscommunication and family was not aware that patient was definitely going to the Rehab Unit. They are in agreement with patient going to rehab. Plan: [facility] 4th floor Rehab Unit. Amber TORRES
--- NOTE | 2019-11-03 16:30 | NURSING ---
report called Emma BRAUN in inpt rehab
[2019-11-03 17:26] LABS: Bedside Glucose 151 mg/dL (70-110)
--- NOTE | 2019-11-03 18:15 | NURSING ---
1800- pt's bed alarming. METHODS SPECIALIST quickly responded. when entering room pt was in the process of falling backwards. pt hit buttocks on floor but did not injure anything. this RN responded. pt was stood and returned to bed. pt states no pain. VSS. physician notified. per physician, no testing needed and pt can still be dc'd to rehab unit. this RN notified pt's son of fall.
== END 2019-11-03 18:15 | disposition skilled nursing facility (03) | DRG 65 ==
LOC: ED 20:07 → PCU 21:42
PROVIDERS: Admitting Provider Family Medicine; Emergency Provider Emergency Medicine; PCP Internal Medicine; Visit Provider Student in an Organized Health Care Education/Training Program
DX: I63.312 Cerebral infarction due to thrombosis of left middle cerebral artery (principal); E87.1 Hypo-osmolality and hyponatremia; I10 Essential (primary) hypertension; E78.5 Hyperlipidemia, unspecified; F32.9 Major depressive disorder, single episode, unspecified; F41.9 Anxiety disorder, unspecified; N40.0 Benign prostatic hyperplasia without lower urinary tract symptoms; E11.69 Type 2 diabetes mellitus with other specified complication; D72.810 Lymphocytopenia; R26.2 Difficulty in walking, not elsewhere classified; Z86.73 Personal history of transient ischemic attack (TIA), and cerebral infarction without residual deficits; Z79.02 Long term (current) use of antithrombotics/antiplatelets; Z79.82 Long term (current) use of aspirin; Z79.4 Long term (current) use of insulin; Z82.49 Family history of ischemic heart disease and other diseases of the circulatory system; K43.9 Ventral hernia without obstruction or gangrene; R11.2 Nausea with vomiting, unspecified
CPT/HCPCS: 36415; 70450; 70496; 70498; 70553; 80048; 80053; 80061; 82962; 83036; 83735; 84439; 84443; 84484; 85025; 92610; 93005; 93306; 94762; 97162; 97166; 97802; 99251; 99284; A9575; J7030; Q9967; A4216; G0463

== ENCOUNTER 2019-11-03 18:24 | Inpatient (IN) | payer MEDICARE, OTHER, SELFPAY ==
[2019-11-03 17:54] VITALS: BMI 22.7
[2019-11-03 18:32] VITALS: BMI 22.7; BMI 22.8
[2019-11-03 18:38] VITALS: BP 142/86; PULSE 69; RESP 18; TEMP 36.8; O2SAT 98
[2019-11-03] MEDS: Atorvastatin Calcium 40 MG Tablet PO (21:27)
[2019-11-03] MEDS: Tamsulosin HCl 0.4 MG Capsule 0.8 MG PO (21:27)
[2019-11-03] MEDS: traZODone 50 MG Tablet PO (21:27)
[2019-11-03] MEDS: Senna/Docusate Sodium 1 Tablet 2 TABLET PO (21:27)
[2019-11-03 22:00] VITALS: BP 136/75; PULSE 71; RESP 18; TEMP 36.7; O2SAT 96
[2019-11-03 22:46] LABS: Bedside Glucose 143 mg/dL (70-110)
[2019-11-04] MEDS: Enoxaparin 40 MG/0.4 ML Syringe SC (05:42)
[2019-11-04 06:00] VITALS: BP 105/71; BP 113/75; BP 136/79; PULSE 70; PULSE 78; PULSE 81
[2019-11-04 06:51] LABS: Bedside Glucose 122 mg/dL (70-110)
[2019-11-04 07:47] VITALS: BP 130/85; PULSE 71; RESP 16; TEMP 36.6; O2SAT 98
[2019-11-04] MEDS: Clopidogrel Bisulfate 75 MG Tablet PO (07:48)
[2019-11-04] MEDS: metFORMIN (XR) 500 MG Tablet PO ×2 (07:48→17:11)
[2019-11-04] MEDS: Aspirin E.C. 81 MG Tablet PO (07:48)
[2019-11-04] MEDS: buPROPion 75 MG Tablet PO (07:48)
[2019-11-04] MEDS: glipiZIDE 5 MG Tablet PO (07:48)
[2019-11-04] MEDS: Losartan Potassium 25 MG Tablet PO (07:48)
[2019-11-04] MEDS: Senna/Docusate Sodium 1 Tablet 2 TABLET PO ×2 (07:48→22:00)
[2019-11-04 09:09] VITALS: O2SAT 95
--- NOTE | 2019-11-04 09:10 | CPS ---
started by nursing
--- NOTE | 2019-11-04 11:48 | CASEMGMT ---
Social Work Completed PHQ-9. Score: 0. Angelica Martin, HUMAN RESOURCES DEPARTMENT SUPERVISOR HUMAN RESOURCES ADVISOR
[2019-11-04 11:56] LABS: Bedside Glucose 77 mg/dL (70-110)
--- NOTE | 2019-11-04 15:01 | HP.PCM_ITS ---
Problem List (1) HTN (hypertension) Status: Chronic Qualifiers: Hypertension type: essential hypertension Qualified Code(s): I10 - Essential (primary) hypertension (2) HLD (hyperlipidemia) Status: Chronic Qualifiers: Hyperlipidemia type: unspecified Qualified Code(s): E78.5 - Hyperlipidemia, unspecified (3) Anxiety and depression Status: Chronic Comment: He is still depressed on a very small dose of Wellbutrin (4) Acute CVA (cerebrovascular accident) Status: Acute Comment: L frontal acute and NEW L side basal ganglia lacunar infarcts (5) CVA (cerebral vascular accident) Status: Chronic Qualifiers: CVA mechanism: thrombosis Precerebral and cerebral artery: middle cerebral artery Laterality of affected vessel: left Qualified Code(s): I63.312 - Cerebral infarction due to thrombosis of left middle cerebral artery (6) BPH (benign prostatic hyperplasia) Status: Chronic Qualifiers: Lower urinary tract symptom presence: unspecified whether lower urinary tract symptoms present Qualified Code(s): N40.0 - Benign prostatic hyperplasia without lower urinary tract symptoms (7) Hyponatremia Status: Acute (8) Debility Status: Acute Comment: due to recent left basal ganglia lacunar infarcts and acute left frontal ischemic CVA (9) Diabetes mellitus Status: Chronic Qualifiers: Diabetes mellitus type: type 2 Diabetes mellitus [facility] insulin use: without intermediate teacher use Diabetes mellitus complication status: with other specified complication Qualified Code(s): E11.69 - Type 2 diabetes mellitus with other specified complication Comment: newly diagnosed, type II (10) Ventral hernia Status: Chronic (11) Ischemic cerebrovascular disease Status: Chronic Comment: moderate white matter diffuse disease on MRI and CT of the brain with moderate ventricular dilatation (12) Cerebral atrophy Status: Chronic Comment: moderate with ventricular dilatation (13) Hypomagnesemia Status: Acute (14) Normochromic normocytic anemia Status: Acute (15) Helicobacter pylori (H. 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 He had had an MRI of the brain as an outpatient on 11/01/2019 at the [facility] that showed subacute stroke. MRI of the brain at [facility] on 11/02/2019 showed an acute subcentimeter infarct of the periventricular white matter of the left frontal lobe. He had a CTA of the head and neck that showed new focal low attenuating areas within the left side of the basal ganglia and within the periventricular white matter consistent with lacunar infarcts. This was new since a CTA he had in September 2018. There was a fusiform distended appearance of the basilar artery with a prominent focal confluence of the tip of the basilar artery. The right-sided posterior cerebral artery extends from the posterior aspect of the tip of the basilar confluence with tortuosity. There was slight focal narrowing of the vessel not seen on prior study allowing for differences in technique. There was a torturous appearance of the left vertebral artery with a hairpin turn. He was admitted to the hospital with a diagnosis of acute left frontal ischemic CVA. An echocardiogram was done which revealed a normal ejection fraction with no evidence of diastolic dysfunction. There is no mention of a PFO. Consultation was obtained with tele-neurology who recommended aspirin, Plavix and a medium intensity statin. He had no atrial fibrillation while being monitored on telemetry and apparently had a 30-day event monitor 1 year ago that showed no atrial fibrillation. A loop recorder was recommended and cardiology will schedule an appointment for this. Significant lab while in the hospital revealed a sodium of 132 with a chloride of 97. The BUN is 10 and the creatinine is 0.83. Calcium was within normal limits. The magnesium was low at 1.4. Hemoglobin A1c was 5.4 which is too low for a 74-year-old patient and I suspect he is probably having hypoglycemic episodes while at home. TSH was normal at 1.23 and his free T4 was 1.98. Hemoglobin was low at 12.1 with normochromic normocytic indices and a normal RDW. Total cholesterol was 82 with triglycerides of 57. LDL was 26 and the HDL was 45. He recently had an EGD and the H. Pylori was positive per Dr. Acevedo and he is going to be started on tx for H. Pylori with clarithromycin 500 mg twice daily, amoxicillin 1 g twice daily and Protonix 40 mg twice daily for 14 days. He was admitted to the inpatient rehab unit at [facility] on 11/03/2019 for greater than 3 hours of therapy daily to restore him at or near his prior level of function. I spoke with his son and he had the personality change about 6 months ago. He has been withdrawn and quiet and he is usually very outgoing and gregarious. His appetite has been erratic and and he has lost weight in the past 6 months. He has not noticed him being confused but, he was having a lot of difficulty following my directions today. He has had falls at home and he seems to always fall backwards. He was admitted to [facility] in September of 2018 for a small L MCA ischemic infarct. 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 He has an appt to see a neurologist at the [facility] main campus on November 15. I spoke with Dr. Acevedo who tells me that Dakota's grandson who is in his early 20's has had 3 strokes. It raises the question of a possible hypercoagulable disorder. January 2019 Impression: 1. There is no evidence of significant ischemia or infarction. 2. Estimated ejection fraction is 71%. Normal pulmonary function test in February 2019 Past Medical History Past Medical History (Chronic Problems): Chronic Problems (Last Reviewed 08/11/19 @ 14:[address] Imani Childers MD) HTN (hypertension) (Chronic) HLD (hyperlipidemia) (Chronic) Anxiety and depression (Chronic) He is still depressed on a very small dose of Wellbutrin Ischemic cerebrovascular disease (Chronic) moderate white matter diffuse disease on MRI and CT of the brain with moderate ventricular dilatation Cerebral atrophy (Chronic) moderate with ventricular dilatation CVA (cerebral vascular accident) (Chronic) BPH (benign prostatic hyperplasia) (Chronic) Diabetes mellitus (Chronic) newly diagnosed, type II Ventral hernia (Chronic) Medical History: Medical History (Last Reviewed 11/04/19 @ 17:[address] Pamela Dickinson DO) CVA (cerebral vascular accident) (Chronic) I63.9 BPH (benign prostatic hyperplasia) (Chronic) N40.0 Diabetes mellitus (Chronic) E11.9 newly diagnosed, type II Allergies No Known Allergies Allergy (Verified 11/02/19 17:26) Home Medications: Ambulatory Orders Medication Instructions Recorded atorvastatin 40 mg tablet 40 mg PO QHS 10/29/18 trazodone 50 mg tablet 50 mg PO QHS 10/29/18 aspirin 81 mg tablet,delayed 81 mg PO DAILY@0800 02/10/19 release tamsulosin 0.4 mg capsule 0.8 mg PO QHS cap 02/10/19 Bupropion HCl 75 mg PO DAILY 11/02/19 Losartan Potassium [Cozaar] 25 mg PO DAILY 11/02/19 metFORMIN (XR) [Glucophage Xr] 500 mg PO BID 11/02/19 Clopidogrel Bisulfate [Plavix] 75 mg PO DAILY 11/03/19 glipiZIDE [Glucotrol] 5 mg PO BIDCM 11/03/19 Surgical History: tonsillectomy Psychiatric History: Anxiety, Depression Lives: With Family - his lives with son Savrish. Duncan is a . Smoking Status: Never smoker Tobacco Use: Non-smoker Alcohol: None Drugs: None - *Family History Maternal Family History: Family History (Last Reviewed 11/04/19 @ 17:[address] Pamela Dickinson DO) Mother Myocardial infarction History Items: Heart Disease Paternal Family History: Family History (Last Reviewed 11/04/19 @ 17:[address] Pamela Dickinson DO) Mother Myocardial infarction History Items: - - Patient denies any market maternal or paternal family history including heart disease, diabetes or cancer. Sibling Family History: Family History (Last Reviewed 11/04/19 @ 17:[address] Pamela Dickinson DO) Mother Myocardial infarction History Items: - - bells palsy - brother Offspring Family History: Family History (Last Reviewed 11/04/19 @ 17:[address] Pamela Dickinson DO) Mother Myocardial infarction History Items: - - he has a grandson who has had 3 strokes and is in his early 20's Review of Systems Constitutional: Reports: Anorexia - comes and goes, Weakness - in his legs. Denies: Chills, Fever, Weight Change Eyes: Denies: Double vision, Vision Change HEENT: Reports: Difficulty Swallowing. Denies: Head Aches, Nasal Congestion, Si nus Congestion, Sinus Drainage, Sore Throat Cardiovascular: Denies: Chest Pain, Edema, Light Headedness, Palpitations, Syncope Respiratory: Denies: Cough, Shortness of Breath, Shortness of breath at rest, Sputum production, Wheezing Gastrointestinal: Reports: Constipation, Nausea, Vomiting - occasional, recently diagnosed with H. Pylori. Denies: Abdominal Pain, Diarrhea Genitourinary: Reports: Incontinence - has been incontinent in the rehab unit but, his son denies incontinence at home. Denies: Dysuria, Retention - Post void residual in the rehab unit is less than 100 Musculoskeletal: Reports: Joint Pain - Bilateral knees, Joint Tenderness. Denies: Joint swelling Skin: Denies: Jaundice, Rash, Skin Changes, Wounds Neurological: Reports: Balance problems, Confusion - this is new - his son has not noticed this at home, - - he has BL LE weakness, denies back pain. Denies: Double vision, Change in Speech, Focal weakness, Headaches, Numbness, Tingling, Tremor, Seizures Psychiatric: Denies: Anxiety, Depression, Homicidal Ideations, Suicidal Ideations Endocrine: Reports: Change in Body Habitus - has been losing weight over the past 6 months Hematologic/ Lymphatic: Denies: Easy Bruising, Easy Bleeding, Hx of blood clot VTE Information - Inpt Only VTE Present on Admission: No VTE Mechan Device Prophylaxis: Knee High ADITYA Hose VTE Pharm Prophylaxis ordered?: Yes Patient Problems: Active and Suspected Problems (Last Reviewed 08/11/19 @ 14:[address] Imani Childers MD) Hypomagnesemia (Acute) Normochromic normocytic anemia (Acute) Helicobacter pylori (H. pylori) infection (Acute) - Physical Exam Vitals/I&O's: Vital Signs Temp Pulse Resp BP Pulse Ox 97.9 F 71 16 130/85 H 95 11/04/19 07:47 11/04/19 07:47 11/04/19 07:47 11/04/19 07:47 11/04/19 09:09 Oxygen Delivery Method Room Air Weight: 145 lb 4.554 oz Body Mass Index (BMI) 22.7 Finger Stick Blood Glucose 156 Orthostatic Vital Signs Start: 11/03/19 19:03 Freq: 0600 Status: Active Protocol: Activity Type Activity Date Activity User E-Sign Co-Sign Detail Recorded Client Recorded Date Recorded By Document 11/04/19 06:00 CDA [id number] 11/04/19 07:04 CDA 11/04/19 06:00 Orthostatic Vitals Standing -Blood Pressure (90/60-120/80 mm Hg) 105/71 -Extremity Use Left Arm -Pulse Rate (60-100 beats/min) 81 Sitting -Blood Pressure (90/60-120/80 mm Hg) 113/75 -Extremity Use Left Arm -Pulse Rate (60-100 beats/min) 78 Lying -Blood Pressure (90/60-120/80 mm Hg) 136/79 H -Extremity Use Left Arm -Pulse Rate (60-100 beats/min) 70 Intake and Output for Last 24 Hours 11/02/19 11/03/19 11/04/19 23:59 23:59 23:59 Intake Total 240 / 240 600 / 600 Output Total 690 / 690 Balance 240 / 240 -90 / -90 General: Alert, Oriented x3, Cooperative, Confused - having trouble following some of my directions HEENT: Atraumatic, PERRLA, EOMI, Normocephalic, - - He has ptosis of the left eye Oral: No Gingival or Mucosal Lesions/ Ulcerations, Dry Mucosa Neck: Supple, No JVD, Negative Carotid Bruits, No Nodes, No Nuchal Rigidity, Trachea Midline Lungs: Clear to auscultation, Normal air movement, No rhonchi, No wheeze, No rales Cardiovascular: Regular rate, Regular Rhythm, Normal S1, Normal S2, No murmurs, No Ectopic Activity, No rub noted, No Gallop Abdomen: Bowel Sounds Present, Soft, Non Tender, Non-Distended, - - he has a ventral hernia in upper abdomen and it is reducible and NT to palpation. No pain with palpation of the mid-epigastric area. No abdominal bruits Extremities: No clubbing, No cyanosis, No edema, Capillary Refill Less than 3 Seconds, No Calf Tenderness, - - The R DP is decreased but, the R PT is normal. The left DP is strong but the R PT is diminished. Skin: No rashes, No breakdown Musculoskeletal: No Tenderness to Palpation of Joints or Extremities Neurological: Cranial nerves II-XII grossly intact, - - he has drift with both legs but, neither touched the bed. Psych/Mental Status: Appropriate, Flat Affect - but very pleasant and cooperative Laboratory Results 11/03/19 21:29: POC Glucose 143 H 11/04/19 06:47: POC Glucose 122 H 11/04/19 11:48: POC Glucose 77 Current Medications Acetaminophen (Tylenol) 650 mg PO Q6H PRN PRN PRN Reason: Pain Score 1-10/10 Aspirin (Ecotrin) 81 mg PO DAILY@0800 [facility] Last Admin: 11/04/19 07:48 Dose: 81 mg Documented by: Atorvastatin Calcium (Lipitor) 40 mg PO QHS [facility] Last Admin: 11/03/19 21:27 Dose: 40 mg Documented by: Bisacodyl (Dulcolax) 10 mg RECTAL .PRN X 1 PRN PRN Reason: Constipation Bupropion HCl (Wellbutrin Tablets) 75 mg PO DAILY [facility] Last Admin: 11/04/19 07:48 Dose: 75 mg Documented by: Clopidogrel Bisulfate (Plavix) 75 mg PO DAILY [facility] Last Admin: 11/04/19 07:48 Dose: 75 mg Documented by: Enoxaparin Sodium (Lovenox) 40 mg SC DAILY@0600 [facility] Last Admin: 11/04/19 05:42 Dose: 40 mg Documented by: [facility] ([facility]ot[facility]) [facility] Last Admin: 11/04/19 07:48 Dose: 5 mg Documented by: Insulin Human Lispro (Humalog Kwikpen (Bkc)) 0 unit SC [facility]; Protocol Last Admin: 11/04/19 11:49 Dose: Not Given Documented by: Losartan Potassium (Cozaar) 25 mg PO DAILY [facility] Last Admin: 11/04/19 07:48 Dose: 25 mg Documented by: Magnesium Hydroxide (Milk Of Magnesia) 30 ml PO .PRN X 1 PRN PRN Reason: Constipation Metformin HCl (Glucophage Xr) [facility] Last Admin: 11/04/19 07:48 Dose: 500 mg Documented by: Quetiapine Fumarate (Seroquel) 25 mg PO QSSM [facility]AB Senna/Docusate Sodium (Senokot-S, Amelia-Colace) 2 tablet PO BID [facility] Last Admin: 11/04/19 07:48 Dose: 2 tablet Documented by: Tamsulosin HCl (Flomax) 0.8 mg PO QSSM REHAB Last Admin: 11/03/19 21:27 Dose: 0.8 mg Documented by: Trazodone HCl (Desyrel) 50 mg PO QHS [facility] Last Admin: 11/03/19 21:27 Dose: 50 mg Documented by: Assessment/Plan All Active Problems (Last Reviewed 08/11/19 @ 14:[address] Imani Childers MD) Acute CVA (cerebrovascular accident) (Acute) Hypomagnesemia (Acute) Normochromic normocytic anemia (Acute) Helicobacter pylori (H. pylori) infection (Acute) Hyponatremia (Acute) Debility (Acute) Chest pain (Resolved) Diastolic dysfunction, left ventricle (Resolved) Impressions 1. Acute left frontal ischemic CVA. Multiple L basal ganglia lacunar infarcts since Last September. Small L MCA ischemic CVA in September of 2018. No LVO on CTA of head and neck. I am suspecting emboli but he had no AF on telemetry in the hospital and he had a 30 day event monitor in 2018 that was negative for AF. He is going to get a loop recorder post DC. Transthoracic echocardiogram on 11/03/2019 showed an ejection fraction of 60% with no evidence of diastolic dysfunction and trivial tricuspid valve insufficiency. A bubble contrast study for PFO was not done. He also had an echocardiogram in January 2019 and there was also not a PFO study done with that echo either. There was no atrial enlargement. A TSH was recently normal. He has a basilar artery aneurysm and this may explain the L basal ganglia infarcts but, not the MCA and left frontal infarcts. His grandson has had 3 strokes and he is in his early 20's...this raises the question of an inherited hypercoagulable disorder. 2. Diabetes mellitus type 2 with a hemoglobin A1c of 5.4%. He is at high risk for hypoglycemic episodes and likely is getting hypoglycemic at home. 3. Hypertension 4. Orthostatic hypotension 5. Normochromic normocytic anemia with a normal RDW-etiology? TSH is normal. He denies any history of rheumatoid arthritis or lupus. He is not on a diuretic. 6. Juvnxhrkbvbwcs-qwyb-btitcyyblm 7. Encephalopathy-may be multifactorial and related to depression and stroke. No findings on CT scan or MRI that would be consistent with suspected normal pressure hydrocephalus. Speech therapy detected moderate memory impairment and severe language impairment. He also had dysphagia with thin liquids and possibly aspirates. 8. Hyponatremia 9. Depression 10. BPH on tamsulosin 0.8 mg nightly 11. Recently diagnosed H pylori gastritis 12. Family history of cardiovascular disease 13. Dysphagia PLAN PT for gait stability OT for ADL's ST for evaluation-for swallowing and cognition Analgesics as needed Bowel protocol Fall precautions Assess for Anxiety/Depression - Will DC the wellbutrin because it lowers seizrue threshold and he has had multiple strokes and is getting hypoglycemic. Treat H. pylori with clarithromycin 500 mg twice daily, amoxicillin 1 g twice daily and Protonix 40 mg twice daily DVT prophylaxis with enoxaparin Hemoccult stool Hypercoagulable work-up A.m. cortisol, serum and urine osmolality, WENDY and RA Start Remeron 7.5 mg nightly Decrease the tamsulosin to 0.4 mg nightly due to orthostatic hypotension Encourage increased fluid intake Going forward he should have a bubble contrast study to rule out a PFO. May also want to consider a VLAD to look for clot in the LA appendage. He is also going to be evaluated by neurology at [facility] on November 15 and I question if there should be any further W/U of the basilar artery aneurysm. Appt with Dr. Childers post DC for a loop recorder to be implanted. Trazodone had to be held until he is off Clarithromycin because of a drug interaction. Will use Ambien 5 mg instead. Try Zostrix for knee pain. Follow up with Dr. Acevedo and neurology following DC from Rehab. Inpatient E&M: [id number] Init Hosp L3
--- NOTE | 2019-11-04 15:49 | PCM.RU.PYE ---
Admission Information Primary Diagnosis:: Debility secondary to subacute left basal ganglia lacunar infarcts and acute ischemic left frontal CVA Status Changes from Prescreening?: No changes Identified Actual Problem List:: Depression, Bladder Incontinence, Alteration in Sleep, Alteration in Nutrition, Mobility Impaired, Self Care Deficit, Diabetes, Hypoglycemia, BP, Hypertension, Alteration-Leisure Activ. Potential Problem List:: DVT, Bleeding, Infection, UTI, Aspiration, Falls, Skin Integrity, Depression Risk of Complications DVT: LMWH, ADITYA Hose Bleeding: Monitor Lab Values, Nursing to Teach Precautions for anti-coagulation therapy., Wound, if applicable, to be assessed every shift., Stroke patients assessed for lethargy or change in status. Infection: Clinical Staff to Monitor for S/S of infection:, S/S of infection include fever, redness, warmth, etc. Urinary Tract Infection: Monitor for frequency, burning, discomfort, or incontinence., Nursing will obtain urine sample for urinalysis and C&S when ordered. Aspiration: Clinical staff will monitor for coughing, drooling, congestion., Speech will evaluate swallowing and dsyphasia., Nursing will monitor patient swallowing during meals. Falls: Patient will be evaluated for Fall Precautions, Patient will be placed on Fall Precautions as indicated per protocol. Skin Breakdown: Nursing will assess skin daily using assessment tool., Nursing will place on Skin Breakdown Precautions as indicated. Pain: Clinical staff will assess patient's pain level per protocol., Medications will be given, if needed, and the pain level reassessed., Other methods: Massage, distraction, decrease stimulus, etc. used PRN. Plan of Care Patient requires physician specializing in physical medicine and rehab oversight to provide close medical supervision of rehab issues including: Pain Management, Sleep Problems, Bowel and Bladder, Medical and co-morbidity Management, DVT prophylaxis, Rehabilitation Leadership, Coordination of treatment team Patient needs Physical Therapy: For a minimum of 1 hour, At least 5 out of 7 days Patient needs Physical Therapy to improve:: Mobility, Mobility, Mobility, Strengthening, Transfers, Stretching, ROM, Endurance, Stairs, Gait, Balance Patient needs Occupational Therapy: For a minimum of 1 hour, At least 5 out of 7 days Patient needs Occupational Therapy to improve ADL's incl.: Eating, Grooming, Bathing, Dressing, Toileting, Toilet transfers, Community Reintegration, Higher functioning activities, Household tasks, Adaptive Equipment, Splinting, Other activities as determined Patient requires speech therapy: For a minimum of 1 hour, At least 5 out of 7 days Patient requires speech therapy for: Swallowing, Cognition, Language Skills, Compensatory Strategies Patient requires 24/ Rehabilitation Nursing for: Pain Issues, Identifying and preventing risk factors, Monitoring and reporting current medical conditions, Assisting with ambulation, transfer, and all ADL's, Teaching patients about disease process and medications, Family teaching, Providing safe environment, Bowel and Bladder Issues, Skin integrity, Medication Management Patient needs Medical Front Desk Specialist/ Case Management for: Discharge Planning, Arranging Home Equipment or Services, Family Interventions Patient needs Dietary and Nutrition Services for: Adequate Nutrition, Nutritional Supplements, Nutritional Education Goals Patient will remain: free from falls, or injury at time of discharge. Patient will perform bed mobility at: MOD I level of assist. Patient will complete transfers from bed to chair at: MOD I level of assist. Patient will ambulate: 100 feet, with MOD I assist, with LRD Patient will complete upper body dressing at: MOD I level of assist. Patient will complete lower body dressing at: MOD I level of assist. Patient will complete toileting at: MOD I level of assist. Patient will perform bathing at: MOD I level of assist. Patient will complete grooming at: MOD I level of assist. Patient will complete home management skills at: MOD I level of assist. Patient will achieve: 12 stairs, at MOD I assist Patient will have pain level of: of 3 or less Patient's skin will: remain intact, free from infection. Patient will receive: adequate nutrition. Discharge Planning Pt Prognosis for Sig. Practical Improv. w/in Reasonable Time: Good Estimated Length of stay (days): 14 Anticipated D/C Destination: Home with Outpt Therapy
[2019-11-04 16:24] LABS: Rheumatoid Factor < 10.0 IU/mL (<15)
[2019-11-04 16:44] LABS: Osmolality, Serum 267 mOsm/KG (280-301)
[2019-11-04 17:03] LABS: Urine Sodium 208 mmol/L (Not Establ.)
[2019-11-04 17:11] LABS: Bedside Glucose 79 mg/dL (70-110)
[2019-11-04 17:20] LABS: Osmolality, Urine 700 mOsm/KG
[2019-11-04 17:25] LABS: Bacteria 0 SEEN /hpf (None Seen); Squamous Epithelial Cells - UA 0 SEEN /hpf (0-5)
[2019-11-04 17:28] LABS: Color, Urine Yellow (Yellow); Glucose, Dipstick Normal (Normal); Ketone-Dipstick 5 mg/dl (Negative); Leukocyte Esterase-Dipstick Negative /ul (Negative); Nitrite-Dipstick Negative (Negative); Occult Blood-Urine 50 /ul (Negative); Protein-Dipstick 15 mg/dl (Negative); Specific Gravity, Urine 1.015 (1.002-1.030); Urine Bilirubin Dipstick Negative (Negative); Urine Clarity Sl. Cloudy (Clear); Urine Urobilinogen 4 mg/dl (Normal); Urine pH 6.5 (5.0 - 8.0)
[2019-11-04 17:49] LABS: Mucous, Urine 1+ /hpf (<or=2+)
[2019-11-04 17:50] LABS: Red Blood Cells-Urine 5-10 SEEN /hpf (0-5); White Blood Cells 0-5 SEEN /hpf (0-5)
[2019-11-04 17:51] LABS: Transitional Epithelial - Ur 0-5 SEEN /hpf (0-5)
[2019-11-04 18:40] LABS: Vitamin B12 443 pg/mL (211-911)
[2019-11-04 19:20] VITALS: BP 136/88; PULSE 72; RESP 16; TEMP 36.6; O2SAT 96
[2019-11-04] MEDS: Zolpidem Tartrate 5 MG Tablet PO (21:58)
[2019-11-04] MEDS: Mirtazapine 15 MG Tablet 7.5 MG PO (21:58)
[2019-11-04] MEDS: AMOXICILLIN 500 MG CAPSULE 1000 MG PO (21:58)
[2019-11-04] MEDS: Capsaicin 0.025% 1 APPLIC Tube TOPICAL (22:00)
[2019-11-04] MEDS: Pantoprazole Sodium 40 MG Tablet PO (22:00)
[2019-11-04 22:20] LABS: Bedside Glucose 97 mg/dL (70-110)
[2019-11-05 06:00] VITALS: BP 115/75; BP 117/71; BP 131/53; PULSE 73; PULSE 76; PULSE 91
[2019-11-05] MEDS: Enoxaparin 40 MG/0.4 ML Syringe SC (06:08)
[2019-11-05 06:44] VITALS: O2SAT 96
[2019-11-05 07:00] VITALS: BP 117/71; PULSE 73; RESP 16; TEMP 36.4; O2SAT 95
[2019-11-05 07:01] LABS: Bedside Glucose 76 mg/dL (70-110)
[2019-11-05] MEDS: Clopidogrel Bisulfate 75 MG Tablet PO (08:01)
[2019-11-05] MEDS: AMOXICILLIN 500 MG CAPSULE 1000 MG PO ×2 (08:01→21:36)
[2019-11-05] MEDS: metFORMIN (XR) 500 MG Tablet PO ×2 (08:01→17:40)
[2019-11-05] MEDS: glipiZIDE 5 MG Tablet PO (08:01)
[2019-11-05] MEDS: Losartan Potassium 25 MG Tablet PO (08:01)
[2019-11-05] MEDS: Pantoprazole Sodium 40 MG Tablet PO ×2 (08:01→21:36)
[2019-11-05] MEDS: Aspirin E.C. 81 MG Tablet PO (08:01)
[2019-11-05] MEDS: Capsaicin 0.025% 1 APPLIC Tube TOPICAL ×2 (08:02→21:35)
[2019-11-05] MEDS: Senna/Docusate Sodium 1 Tablet 2 TABLET PO ×2 (08:03→21:36)
--- NOTE | 2019-11-05 08:07 | PCM.PN.BLA ---
Progress Note Day #2 amoxicillin, clarithromycin and Protonix. Afebrile The blood pressure did not significantly change today when going from lying to standing however his heart rate increased from 73-91 and this is positive orthostatic change. The blood pressure has ranged from 130/85-142/86 since arriving in rehab. He is maintaining appropriate oxygen saturation on room air. He is incontinent of urine. A post void residuals last night was 300 cc. Flomax is on hold secondary to a drug interaction with clarithromycin. Atorvastatin and trazodone are also on hold. Medication list was reviewed. D/W with night nurse and his foreskin was retracted behind the glans last evening and he had pain and swelling of the glans. I reduced it last evening and ice was applied but, it became retracted again last night and the nurse reduced once again. The UA done with straight cath showed 0-5 WBCs and no bacteria. It was leukocyte Estrace negative. There were 5-10 RBCs. Random urine sodium was 208 and the urine osmolality was 700. Serum osmolality was low at 267. The B12 was normal at 443. Rheumatoid factor was less than 10 and the WENDY is pending. Cortisol drawn this a.m. was 10.3 which is normal. Hypercoagulable panel is pending. TSH and T4 are within normal limits. PSA is normal at 3.47 He has a very flat affect but is pleasant when talking with him and appropriate. He is very polite. He denies pain. He denies shortness of breath and denies burning with urination. Lungs-clear to auscultation Heart-regular rate and rhythm Abdomen-soft, nontender, nondistended, no guarding with palpation of the abdomen, especially the epigastric area, normal bowel sounds present No peripheral edema The swelling of the glans penis is much improved today and the foreskin easily covers the glans. He denies pain Impressions 1. Post stroke debility 2. Diabetes mellitus type 2 3. Hypertension 4. BPH 5. Depression Hold the Losartan and start Cardura for BP and for BPH. start the Cardura at 1 mg PO Q HS and do not increase for 7-10 days. Check a PSA Await the results of the hypercoagulable panel and the WENDY STROKE Vital Signs/Narrative: Vital Signs Pulse Pulse Pulse BP BP BP Pulse Ox 11/05/19 06:44 96 11/05/19 06:00 73 76 91 117/71 131/53 H 115/75 Inpatient E&M: 05508 Subs Hosp L2
[2019-11-05 09:02] LABS: PSA,Total - Annual Screen 3.47 ng/mL (0.00-4.00)
--- NOTE | 2019-11-05 11:22 | NURSING ---
blood sugar 56, pt reports asymptomatic. 120cc nectar oj and veg irene soup given. will recheck in 15 minutes. carolina layne aware.
[2019-11-05 11:31] LABS: Bedside Glucose 56 mg/dL (70-110)
--- NOTE | 2019-11-05 11:38 | NURSING ---
blood sugar 42 after drinking 120oj and eating soup. pt reports now feels low. dr santos aware and order for glucagon 1mg im to be given. set up with lunch tray. will recheck.
[2019-11-05 11:41] LABS: Bedside Glucose 42 mg/dL (70-110)
[2019-11-05] MEDS: Glucagon 1 MG/ML Syringe IM (11:47)
--- NOTE | 2019-11-05 11:47 | NURSING ---
glucagon 1mg given im per orders.
--- NOTE | 2019-11-05 11:54 | NURSING ---
blood sugar recheck of 80.
[2019-11-05 12:00] LABS: Bedside Glucose 80 mg/dL (70-110)
--- NOTE | 2019-11-05 12:20 | NURSING ---
blood sugar 128.
[2019-11-05 12:25] LABS: Bedside Glucose 128 mg/dL (70-110)
--- NOTE | 2019-11-05 14:00 | NURSING ---
pa alarming. pt attempting to get out of bed to go to bathroom. assist x1 with walker to bathroom. pt had large soft/nonformed brown stool. missed hat d/t placement and unable to collect stool sample for ob. returned to bed with assist x1 and walker. alarm placed back on. call light in reach.
[2019-11-05 16:30] LABS: Bedside Glucose 95 mg/dL (70-110)
[2019-11-05 19:18] VITALS: BP 122/85; PULSE 89; RESP 18; TEMP 36.8; O2SAT 96
--- NOTE | 2019-11-05 20:15 | NURSING ---
PT FOUND STANDING AT TOILET URINATING WITH PA AND BA ALARMS RINGING. PT ASSISTED BACK TO BED AND RE-INSTRUCTED TO USE CALL LIGHT WHEN HE WANT TO GET TO BR. CALL LIGHT PLACED IN EASY REACH. PT VERBALIZED UNDERSTANDING.
[2019-11-05] MEDS: Doxazosin 1 MG Tablet PO (21:36)
[2019-11-05] MEDS: Mirtazapine 15 MG Tablet 7.5 MG PO (21:37)
[2019-11-05] MEDS: Zolpidem Tartrate 5 MG Tablet PO (21:37)
[2019-11-05 21:55] LABS: Bedside Glucose 73 mg/dL (70-110)
[2019-11-06] VITALS (9 sets, daily range): BP systolic 82–133; BP diastolic 54–86; PULSE 83–133; RESP 16; TEMP 36.7–36.8; O2SAT 92–96
--- NOTE | 2019-11-06 03:35 | NURSING ---
PT FOUND WITH MODERATE AMT EMESIS ON HIS PT GOWN AND LINENS, CREAM COLORED WITH SMALL AMT PINK. PT DENIES PAIN. PT'S SKIN COLOR IS PALE. PT WAS FOUND TRYING TO CLIMB OUT OF BED. PT CLEANED AND CHANGED AND BLOOD SUGAR AND VS OBTAINED. CALL PLACED TO DR NATHEN SCHMIDT WHO IS INFORMED OF PT'S CURRENT STATUS AND VITAL SIGNS. DR SENA PLACES ORDERS.
[2019-11-06 03:51] LABS: Bedside Glucose 157 mg/dL (70-110)
--- NOTE | 2019-11-06 04:00 | PCM.PN.BLA ---
Progress Note Nurse reported blood-tinged sputum. Stop Plavix. Continue aspirin. Stop Lovenox. SCD ordered. Patient on Protonix 40 mg p.o. twice daily. Give additional dose of Protonix 40 mg IV x1. Trend H&H. STROKE Vital Signs/Narrative: Vital Signs Temp Pulse Resp BP Pulse Ox 11/06/19 03:35 98.3 F 127 H 16 133/86 H 95
--- NOTE | 2019-11-06 04:15 | NURSING ---
ATTEMPT TO INITIATE IV WITHOUT SUCCESS X 2 IN PT. NSG ROLLER REPAIRER NOTIFIED AND WILL ATTEMPT IV. PT WITH OCC SMALL AMT VOMITING-MOSTLY CLEAR. PT' DENIES PAIN. ABDOMEN IS SOFT AND NONTENDER.
[2019-11-06 04:54] LABS: Hematocrit 40.2 % (40-54); Hemoglobin 13.2 g/dL (13.0-16.5)
[2019-11-06] MEDS: Ondansetron 4 MG/2 ML Vial IV (05:00)
--- NOTE | 2019-11-06 05:21 | NURSING ---
PT RESTING QUIETLY WITH EYES CLOSED. PT HAS NOT VOMITED SINCE RECEIVING ZOFRAN. IVPB INFUSING.. PT PLACED ON O2 AT 2 LPM AND PAGE PLACED TO DR SCHMIDT.
--- NOTE | 2019-11-06 05:26 | NURSING ---
DR SCHMIDT INFORMED OF PT'S CURRENT VITAL SIGNS. ORDERS PLACED.
[2019-11-06] MEDS: 0.9% Normal Saline 1,000 ML 999 ML IV (05:35)
[2019-11-06] MEDS: 0.9% Normal Saline 1,000 ML 100 ML IV ×2 (06:33→16:40)
[2019-11-06 07:16] LABS: Bedside Glucose 139 mg/dL (70-110)
[2019-11-06] MEDS: Aspirin E.C. 81 MG Tablet PO (09:49)
[2019-11-06] MEDS: metFORMIN (XR) 500 MG Tablet PO ×2 (09:49→16:36)
[2019-11-06] MEDS: AMOXICILLIN 500 MG CAPSULE 1000 MG PO ×2 (09:49→21:34)
[2019-11-06] MEDS: Capsaicin 0.025% 1 APPLIC Tube TOPICAL ×2 (09:50→21:35)
[2019-11-06 12:20] LABS: Bedside Glucose 129 mg/dL (70-110)
[2019-11-06 14:19] LABS: Hematocrit 33.7 % (40-54); Hemoglobin 11.3 g/dL (13.0-16.5)
[2019-11-06 16:46] LABS: Bedside Glucose 151 mg/dL (70-110)
[2019-11-06] MEDS: Mirtazapine 15 MG Tablet 7.5 MG PO (21:33)
[2019-11-06] MEDS: Zolpidem Tartrate 5 MG Tablet PO (21:34)
[2019-11-06] MEDS: Doxazosin 1 MG Tablet PO (21:35)
[2019-11-06] MEDS: Senna/Docusate Sodium 1 Tablet 2 TABLET PO (21:35)
[2019-11-06 22:30] LABS: Hematocrit 33.4 % (40-54); Hemoglobin 10.8 g/dL (13.0-16.5)
[2019-11-06 22:41] LABS: Bedside Glucose 93 mg/dL (70-110)
[2019-11-07] MEDS: 0.9% Normal Saline 1,000 ML 100 ML IV (02:19)
[2019-11-07 06:00] VITALS: BP 145/95; BP 156/109; BP 157/97; PULSE 106; PULSE 84; PULSE 94
--- NOTE | 2019-11-07 06:43 | NURSING ---
pt set off alarms and found attempting to stand up at side of bed. Pt reminded of safety measures in place to keep pt from falling. Pt repositioned in bed after toileting and call light in lap. Will continue to monitor and alert day shift.
[2019-11-07 07:05] LABS: Bedside Glucose 85 mg/dL (70-110)
[2019-11-07] MEDS: AMOXICILLIN 500 MG CAPSULE 1000 MG PO ×2 (07:44→21:37)
[2019-11-07] MEDS: Aspirin E.C. 81 MG Tablet PO (07:45)
[2019-11-07] MEDS: metFORMIN (XR) 500 MG Tablet PO ×2 (08:37→16:41)
[2019-11-07] MEDS: Pantoprazole Sodium 40 MG Tablet PO ×2 (08:52→21:38)
[2019-11-07 10:00] VITALS: BP 110/66; PULSE 77; RESP 17; TEMP 36.7; O2SAT 96
[2019-11-07] MEDS: Capsaicin 0.025% 1 APPLIC Tube TOPICAL ×2 (12:01→21:38)
[2019-11-07 12:06] LABS: Protein C Antigen 95 % (60-150)
[2019-11-07 12:11] LABS: Bedside Glucose 128 mg/dL (70-110)
[2019-11-07 16:55] LABS: Bedside Glucose 90 mg/dL (70-110)
[2019-11-07 20:00] VITALS: BP 159/92; PULSE 86; RESP 18; TEMP 36.7; O2SAT 97
[2019-11-07] MEDS: Mirtazapine 15 MG Tablet 7.5 MG PO (20:01)
[2019-11-07] MEDS: Zolpidem Tartrate 5 MG Tablet PO (21:37)
[2019-11-07] MEDS: Doxazosin 1 MG Tablet PO (21:38)
[2019-11-07 22:05] LABS: Bedside Glucose 95 mg/dL (70-110)
[2019-11-08 01:51] LABS: Protein C, Functional 124 % (73-180)
[2019-11-08 06:00] VITALS: BP 131/93; BP 135/91; BP 140/83; PULSE 104; PULSE 83; PULSE 87
[2019-11-08 06:36] LABS: Bedside Glucose 105 mg/dL (70-110)
[2019-11-08] MEDS: Capsaicin 0.025% 1 APPLIC Tube TOPICAL ×2 (08:05→21:16)
[2019-11-08] MEDS: Pantoprazole Sodium 40 MG Tablet PO ×2 (08:06→21:17)
[2019-11-08] MEDS: AMOXICILLIN 500 MG CAPSULE 1000 MG PO ×2 (08:06→21:17)
[2019-11-08] MEDS: Aspirin E.C. 81 MG Tablet PO (08:06)
[2019-11-08] MEDS: metFORMIN (XR) 500 MG Tablet PO (08:06)
[2019-11-08 08:30] VITALS: BP 140/83; PULSE 86; RESP 18; TEMP 36.9; O2SAT 95
--- NOTE | 2019-11-08 08:34 | PCM.PN.BLA ---
Progress Note Day #5 amoxicillin, clarithromycin and Protonix 40 twice daily Afebrile since admission Blood pressures are erratic. Blood pressure currently is 140/83 but has been as low as 82/54 on 11/05 at 0515. Orthostatic vital signs are negative for orthostatic hypotension today He is maintaining appropriate oxygen saturation on room air. Poor oral intake on 11/06/2019 but on 11/07/2019 he had 1300 p.o. and 1530 IV He is incontinent of urine Reviewed the note from the night hospitalist on 11/05. Plavix and Lovenox were DC'd due to a pink tinge noted in emesis. Stool was heme neg reviewed the nurses notes and the therapy notes. Hemoccult stool was negative on 11/06/2019 Catheterized urine specimen from 11/04/2019 was no growth Blood sugar record was reviewed and the blood sugars are on the low side. He denies lightheadedness, epigastric pain, nausea, diarrhea. Denies chest pain, shortness of breath, cough. He states his appetite is improving and he looks much better today. Not nearly as fatigued in appearance and he is more actively participating in conversation and smiling. Alert, appropriate Lungs - CTA HRRR, a little tachycardic when I am listening to him and his MM are dry. I encouraged him to increase his fluid intake. Family is bringing food for him. abd-soft, nondistended, no guarding with palpation, normal bowel sounds present. No peripheral edema Impressions 1. Post stroke debility 2. H pylori gastritis/PUD 3. Mild normochromic normocytic anemia with heme negative stool. PSA is normal. B12 and cortisol are normal. RA is less than 10 and the WENDY and hypercoagulable panel are still pending. Protein C is within normal limits. 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 Depression-no adverse effects with Remeron - in another few days if still no adv reactions to the Remeron will increase the dose to 15 mg Q HS CBC, mag, phos, BMP now Change the Metformin to 500 mg XR every morning. Await the other tests on the hypercoagulable panel STROKE Vital Signs/Narrative: Vital Signs Temp Pulse Pulse Pulse Pulse Resp BP 11/08/19 08:30 98.4 F 86 18 140/83 H 11/08/19 06:00 104 H 87 83 BP BP BP Pulse Ox 11/08/19 08:30 95 11/08/19 06:00 135/91 H 131/93 H 140/83 H Inpatient E&M: 65382 Subs Hosp L2
[2019-11-08 09:20] LABS: Hemoglobin 11.4 g/dL (13.0-16.5); Mean Corp Hgb Conc 32.6 g/dL (32-36); Mean Corpuscular Hgb 28.5 pg (27.0-32.0); Mean Corpuscular Volume 87.5 fL (80-94); Mean Platelet Vol. 8.5 fl (6.2-12.0); Platelet Count 194 K/mm3 (150-450); RBC Distribution Width SD 44.5 fl (35.1-43.9)
[2019-11-08 09:51] LABS: Anion Gap 6 (5-15); BUN 12 mg/dL (7-18); BUN/Creat Ratio 14.8 RATIO (10-20); Calcium,Total 8.5 mg/dL (8.5-10.1); Chloride 105 mmol/L (98-107); Creatinine, Serum 0.81 mg/dL (0.70-1.30); EST Glomerular Filtration Rate 99 mL/min (>60); Est Glom Filt Rate - Afr Amer 119 mL/min (>60); Estimated Creatinine Clearance 73.45 ml/min; Glucose 176 mg/dL (74-106); Magnesium 1.2 mg/dL (1.6-2.6); Phosphorus 2.2 mg/dL (2.5-4.9); Potassium 3.3 mmol/L (3.5-5.1); Sodium Level 136 mmol/L (136-145)
[2019-11-08 12:15] LABS: Bedside Glucose 94 mg/dL (70-110)
--- NOTE | 2019-11-08 14:44 | NURSING ---
pt bed alarm sounded this nurse entered room to find pt ambulating by himself in the room. this nurse assisted pt to the restroom than back to bed. pt reeducated on the need to use call light for assistance. pt voiced understanding.
[2019-11-08 16:46] LABS: Bedside Glucose 128 mg/dL (70-110)
[2019-11-08 19:21] VITALS: BP 140/90; PULSE 95; RESP 16; TEMP 36.8; O2SAT 97
[2019-11-08] MEDS: Mirtazapine 15 MG Tablet 7.5 MG PO (19:37)
[2019-11-08 20:50] LABS: Bedside Glucose 141 mg/dL (70-110)
[2019-11-08] MEDS: Senna/Docusate Sodium 1 Tablet 2 TABLET PO (21:16)
[2019-11-08] MEDS: Zolpidem Tartrate 5 MG Tablet PO (21:17)
[2019-11-08] MEDS: Doxazosin 1 MG Tablet PO (21:17)
[2019-11-09 06:30] LABS: Bedside Glucose 122 mg/dL (70-110)
[2019-11-09 07:26] VITALS: BP 127/89; PULSE 83; RESP 18; TEMP 36.4; O2SAT 95
[2019-11-09] MEDS: Capsaicin 0.025% 1 APPLIC Tube TOPICAL ×2 (07:56→21:39)
[2019-11-09] MEDS: Senna/Docusate Sodium 1 Tablet 2 TABLET PO ×2 (07:57→21:39)
[2019-11-09] MEDS: Pantoprazole Sodium 40 MG Tablet PO ×2 (07:57→21:40)
[2019-11-09] MEDS: metFORMIN (XR) 500 MG Tablet PO (07:57)
[2019-11-09] MEDS: Aspirin E.C. 81 MG Tablet PO (07:57)
[2019-11-09] MEDS: AMOXICILLIN 500 MG CAPSULE 1000 MG PO ×2 (07:57→21:40)
--- NOTE | 2019-11-09 10:44 | CASEMGMT ---
Social Work IDT met with patient, son, dtr, DIL via conference call for Team Meeting. Discussed patient's progress in therapy. Pt is CGA walking 200 ft with FWW, completed 6 steps at CGA, having poor balance but improving, activity tolerance is improving as well. Pt is CGA for all ADLs d/t balance, and improving on FWW safety. Explained Medicare benefit with approved 15 days with DC 11/17. The plan is for pt to go to neurologist appt 11/15, return and DC home to son and DIL home 11/17 with continued therapy. Will ReTeam next week. Will continue to follow. BRIAN CampbellW
[2019-11-09 11:11] LABS: Bedside Glucose 160 mg/dL (70-110)
--- NOTE | 2019-11-09 12:06 | PCM.PN.BLA ---
Progress Note Dakota was seen on TEAM rounds today. His family participated in TEAM rounds by phone. Day #6 treatment for Helicobacter pylori Afebrile Vital signs are stable. The blood pressure is higher than we wanted and the goal is less than 130/80 He is maintaining appropriate oxygen saturation on room air. Oral intake is fair to moderate. Blood sugar record was reviewed and all blood sugars are less than 180. No hypoglycemia. Fasting blood sugar today is 122 and the blood sugar at at bedtime last night was 141. All lab was reviewed and the potassium is low at 3.3, mag low at 1.2 and phos is also low at 2.2. He tells me that he slept well last night. He denies N/V/abd pain today. I observed him ambulating in the [place] with the WW and he was CGA/SBA and his gait was fluid. He is alert and appropriate. Lungs - CTA HRRR abdomen is soft with no guarding with palpation no edema in the legs at this time and the TEDS are in place. Per nursing he had edema at the end of the day yesterday but, it has resolved with elevation Impressions 1. Post stroke debility 2. Diabetes mellitus type 2 - controlled with no hypoglycemia on 500 mg of Glucophage XL 500 mg daily 3. Hypertension - too high. The goal is 130/80 and I will adjust the antihypertensives to achieve this goal while he is in the rehab unit. Will restart Cozaar. 4. BPH - continue Cardura while the Flomax is being held while he is on Clarithromycin 5. Depression - continue Remeron....increase to 15 mg Q HS Friday if no adverse reactions 6. Helicobacter pylori gastritis - continue current Drug regimen for another 8 days to complete 14 days of treatment. Continue therapy. I think he may benefit from some psychotherapy for depression. Will recommend the unit at [facility]. Inpatient E&M: [id number] Subs Hosp L2
[2019-11-09] MEDS: Losartan Potassium 100 MG Tablet PO (13:50)
[2019-11-09] MEDS: Magnesium Sulfate 4gm/100mL 4 GM/100 ML IV.SOLN. IV (13:51)
[2019-11-09] MEDS: 0.9% Saline Lock 10 ML Syringe IV (13:57)
[2019-11-09 15:38] LABS: ANTINUCLEAR ANTIBODIES DIRECT Negative (Negative)
[2019-11-09 17:20] LABS: Bedside Glucose 197 mg/dL (70-110)
--- NOTE | 2019-11-09 17:25 | NURSING ---
Dr gonzalez office call in regards to pt to have loop recorder implanted on 11/10. appt is rescheduled d/t pt being in patient. Office will call pt to reschedule after pt is discharged from rehab. pt made aware and voiced understanding
[2019-11-09 19:30] VITALS: BP 125/87; PULSE 80; RESP 18; TEMP 36.9; O2SAT 95
[2019-11-09] MEDS: Mirtazapine 15 MG Tablet 7.5 MG PO (19:43)
[2019-11-09] MEDS: Magnesium Hydroxide 30 ML UDC PO (19:45)
[2019-11-09 21:15] LABS: Bedside Glucose 152 mg/dL (70-110)
[2019-11-09] MEDS: Doxazosin 1 MG Tablet PO (21:40)
[2019-11-09] MEDS: Zolpidem Tartrate 5 MG Tablet PO (21:40)
--- NOTE | 2019-11-10 01:00 | NURSING ---
PT VOMITING ON LINENS SMALL AMT CREAM COLORED LIQUID. NO COUGHING. PT ASSISTED TO BSC AND PASSES A LARGE, LIGHT BROWN LIQUID STOOL. DENTURES REMOVED.
[2019-11-10] MEDS: Ondansetron 4 MG/2 ML Vial IV (01:22)
--- NOTE | 2019-11-10 01:30 | NURSING ---
PT MEDICATED WITH ZOFRAN. PT DENIES PAIN. REPORTS NAUSEA IS IMPROVING. ABDOMEN IS SOFT AND NONTENDER TO PALPATION. SKIN IS WARM AND DRY.
[2019-11-10 06:00] VITALS: BP 83/58; PULSE 112; RESP 16; TEMP 37.6; O2SAT 96
--- NOTE | 2019-11-10 06:00 | NURSING ---
PT HAS BEEN SLEEPING. AWAKENED NOW FOR VITAL SIGNS AND TO GET DRESSED FOR DAY. PT REPORTS TO NOT FEEL WELL, BUT DOES NOT HAVE SPECIFIC COMPLAINT. PT IS HYPOTENSIVE. CALL PLACED TO HOSPITALIST. ORDERS RECEIVED.
[2019-11-10 06:05] VITALS: BP 76/62
[2019-11-10 07:05] LABS: Bedside Glucose 140 mg/dL (70-110)
[2019-11-10] MEDS: Aspirin E.C. 81 MG Tablet PO (07:32)
[2019-11-10] MEDS: metFORMIN (XR) 500 MG Tablet PO (07:32)
[2019-11-10] MEDS: Capsaicin 0.025% 1 APPLIC Tube TOPICAL ×2 (07:40→21:53)
[2019-11-10] MEDS: Senna/Docusate Sodium 1 Tablet 2 TABLET PO ×2 (07:42→21:52)
[2019-11-10] MEDS: Pantoprazole Sodium 40 MG Tablet PO ×2 (07:43→21:52)
[2019-11-10] MEDS: Losartan Potassium 100 MG Tablet PO (07:43)
[2019-11-10] MEDS: AMOXICILLIN 500 MG CAPSULE 1000 MG PO ×2 (07:43→21:52)
--- NOTE | 2019-11-10 08:04 | PN_ITS ---
Progress Note Low grade fever this morning with a temp of 99.6 F. VSS BP was low this morning at 0600 at 83/58. A 500 cc fluid bolus was ordered by the night hospitalist. Current BP is 119/80 and I just saw him walking in the [place] and he denies lightheadedness. Maintaining appropriate oxygen saturation on RA Oral intake is poor. Intake on 11/09/2019 was only 600 cc. Discussed with nursing - He had a small emesis last night. Reviewed the PT/OT/ST notes Medication list reviewed. He was started on Cardura 1 mg at bedtime because we had to hold Flomax due to interaction with Clarithromycin. I suspect this is the cause of the hypotension in the AM. But sugar record was reviewed. The metformin XL was decreased to 500 mg daily from twice daily yesterday. Blood sugar at supper was 197 and at at bedtime was 152. The fasting blood sugar today is 148. The goal is to keep the blood sugars less than 200 and the HGBA1C 7-7.5 in a pt of this age. The hemoglobin A1c was only 5.4% on 11/02/2019 and it is likely that he has been getting hypoglycemic at home. He received Phosphorous, Magnesium and potassium supplements yesterday and there is repeat lab ordered for the AM. He denies dysuria, SOB, cough (however when I had him take deep breaths he did cough and the sputum was clear. Denies CP. Alert, oriented x3, appropriate, denies lightheadedness Lungs-clear to auscultation after a few deep breaths Heart-regular rate and rhythm without murmur, gallop or rub Abdomen machine steak tenderizer in the epigastric area but no guarding today No peripheral edema, no calf tenderness No rashes and no skin breakdown Impressions 1. Post stroke debility 2. Orthostatic hypotension 3. Diabetes mellitus type 2 with hypoglycemia-glipizide is been discontinued and he is currently only on metformin 4. Hypertension-controlled Hold the Cardura encourage increased fluid intake check the BP simultaneously in both arms Await the results of the hypercoagulable panel. I spoke with his dtr yesterday and she told me the hypercoagulable W/U was negative on Dakota's grandson. If he continues to have fevers will get a CXR....I suspect he has atelectasis and not PNA. If the WBC is increased tomorrow with order a CXR. STROKE Vital Signs/Narrative: Vital Signs Temp Pulse Resp BP Pulse Ox 11/10/19 06:05 76/62 L 11/10/19 06:00 99.6 F H 112 H 16 83/58 L 96 Inpatient E&M: [id number] Subs Hosp L2
[2019-11-10 08:18] VITALS: BP 119/80; PULSE 86
[2019-11-10 10:00] VITALS: BP 122/82; BP 123/80; PULSE 82; PULSE 83
[2019-11-10 11:36] LABS: Bedside Glucose 135 mg/dL (70-110)
[2019-11-10 17:01] LABS: Bedside Glucose 204 mg/dL (70-110)
[2019-11-10 19:24] VITALS: BP 142/90; PULSE 77; RESP 16; TEMP 37; O2SAT 98
[2019-11-10] MEDS: Mirtazapine 15 MG Tablet 7.5 MG PO (19:47)
[2019-11-10] MEDS: 0.9% Saline Lock 10 ML Syringe IV (19:48)
[2019-11-10] MEDS: Zolpidem Tartrate 5 MG Tablet PO (21:52)
[2019-11-10 22:16] LABS: Bedside Glucose 149 mg/dL (70-110)
[2019-11-11 06:23] LABS: Absolute Lymphocyte Count 1.55 X10^3/uL (0.83-4.51); Basophil# 0.07 X10^3/uL; Eosinophil# 0.38 X10^3/uL; Eosinophils% 5.6 % (0-5); Hematocrit 33.1 % (40-54); Hemoglobin 10.7 g/dL (13.0-16.5); Lymphocyte # 1.55 X10^3/ul (4.0); Lymphocyte % 22.7 % (19-41); Mean Corp Hgb Conc 32.3 g/dL (32-36); Mean Corpuscular Hgb 28.1 pg (27.0-32.0); Mean Corpuscular Volume 86.9 fL (80-94); Mean Platelet Vol. 8.7 fl (6.2-12.0); Monocyte# 0.78 X10^3/uL; Monocyte% 11.4 % (0-10); NRBC Flagged by Analyzer 0 % (0-5); Neutrophil # 4.01 X10^3/uL (2.7-7.7); Neutrophil % 58.9 % (47-70); Platelet Count 214 K/mm3 (150-450); RBC Distribution Width CV 13.8 % (11.6-14.6); RBC Distribution Width SD 44.1 fl (35.1-43.9); Red Blood Count 3.81 M/mm3 (4.6-6.2); White Blood Count 6.8 K/mm3 (4.4-11.0)
[2019-11-11 06:34] LABS: Anion Gap 6 (5-15); BUN 7 mg/dL (7-18); BUN/Creat Ratio 10.6 RATIO (10-20); Calcium,Total 8.2 mg/dL (8.5-10.1); Chloride 105 mmol/L (98-107); Creatinine, Serum 0.66 mg/dL (0.70-1.30); EST Glomerular Filtration Rate 125 mL/min (>60); Est Glom Filt Rate - Afr Amer 152 mL/min (>60); Estimated Creatinine Clearance 59.49 ml/min; Glucose 122 mg/dL (74-106); Lipase 147 U/L (73-393); Magnesium 1.9 mg/dL (1.6-2.6); Phosphorus 2.3 mg/dL (2.5-4.9); Potassium 3.6 mmol/L (3.5-5.1); Sodium Level 135 mmol/L (136-145)
[2019-11-11 07:00] LABS: Bedside Glucose 125 mg/dL (70-110)
[2019-11-11] MEDS: Aspirin E.C. 81 MG Tablet PO (07:34)
[2019-11-11] MEDS: metFORMIN (XR) 500 MG Tablet PO (07:34)
[2019-11-11] MEDS: Losartan Potassium 100 MG Tablet PO (07:35)
[2019-11-11] MEDS: Capsaicin 0.025% 1 APPLIC Tube TOPICAL ×2 (07:36→21:52)
[2019-11-11] MEDS: Pantoprazole Sodium 40 MG Tablet PO ×2 (07:36→21:51)
[2019-11-11 08:00] VITALS: BP 133/86; PULSE 86; RESP 16; TEMP 36.9; O2SAT 95
[2019-11-11] MEDS: AMOXICILLIN 500 MG CAPSULE 1000 MG PO ×2 (09:57→21:51)
--- NOTE | 2019-11-11 11:43 | PN_ITS ---
Progress Note Afebrile Hypotension on 11/10/2019 has not recurred since the Cardura at at bedtime was discontinued. He is having no urine retention or hesitancy since he is now on nothing for BPH. His blood pressure this morning was 133/86 and he denied lightheadedness He is maintaining appropriate oxygen saturation on room air. All lab was personally reviewed. Hemoglobin is stable at 10.7. White blood cell count and platelets are within normal limits. The sodium is mildly decreased at 135, potassium is 3.6, BUN is 7 and the creatinine is 0.66. Blood sugars tend to be a little higher at suppertime and last night it was 204. On 11/09/2019 the 5 PM blood sugar was 197. I am happy with his blood sugars and he no longer has hypoglycemia. Denies nausea, abd pain, lightheadedness, SOB, cough Alert, oriented x3, pleasant and smiling Lungs-clear to auscultation Heart regular rate and rhythm, no ectopy, no murmur, no gallop Abdomen-soft, nontender no guarding with palpation, bowel sounds are normal No peripheral edema, no calf tenderness No rashes and no skin breakdown Impressions 1. Postop debility 2. Orthostatic hypotension-resolved with discontinuation of Cardura which was started in place of Flomax because we could not use Flomax due to a drug interaction with clarithromycin. He has had no urine retention and no excessive urination at night off both Cardura and Flomax. 3. Decreased appetite-Remeron does not seem to help now or in the past so will consider starting Marinol 2.5 mg p.o. twice daily 4. No hypoglycemia since discontinuing glipizide and decreasing metformin XL to 500 mg only once daily Continue therapy Plan discharge for 11/15/2019 so that he can attend his neurology appointment at the [facility] on 8 AM STROKE Vital Signs/Narrative: Vital Signs Temp Pulse Resp BP Pulse Ox 11/11/19 08:00 98.4 F 86 16 133/86 H 95 Inpatient E&M: 90690 Subs Hosp L2
--- NOTE | 2019-11-11 11:54 | CASEMGMT ---
Social Work Spoke with pt, DIL and son about IDT recommending DC 11/14 prior to appt at 8 am 6/2. All agreeable. DIL requesting HHC then OP. Emailed list of [facility] agencies. Will refer for PT/OT/SN and any DME needed. Will continue to follow. BRIAN CampbellW
[2019-11-11 12:06] LABS: Bedside Glucose 114 mg/dL (70-110)
[2019-11-11 16:50] LABS: Bedside Glucose 130 mg/dL (70-110)
--- NOTE | 2019-11-11 18:54 | NURSING ---
Daughter in law notified of patients occasional incontinence and a waterproof mattress pad and pull up attends would be helpful to plan his discharge to home. Son aware of upcoming appointments. Daughter called and aware that Dr. Acevedo office will be calling her to set up an appointment. Impulsive and not using call mckinnon at times with staff hearing bed alarm or personal alarm sounding. Much 1:1 given and redirection.
[2019-11-11 18:57] VITALS: BP 144/92; PULSE 74; RESP 16; TEMP 37.1; O2SAT 98
[2019-11-11] MEDS: Mirtazapine 15 MG Tablet 7.5 MG PO (19:32)
[2019-11-11] MEDS: 0.9% Saline Lock 10 ML Syringe IV (19:39)
[2019-11-11 21:30] LABS: Anti-Cardiolipin Ab, IgG, Qn < 9 GPL U/mL (0-14); Anti-Cardiolipin Ab, IgM, Qn < 9 MPL U/mL (0-12); Anti-Thrombin 3 AG, Immunol 98 % (72-124); Antithrombin 3 Function 101 % (75-135); Beta-2-Glycoprotein I IgA 83 (0-25); Beta-2-Glycoprotein I IgG 27 (0-20); Beta-2-Glycoprotein I IgM <9 (0-32)
[2019-11-11] MEDS: Zolpidem Tartrate 5 MG Tablet PO (21:51)
[2019-11-11 22:15] LABS: Bedside Glucose 112 mg/dL (70-110)
[2019-11-12 06:55] LABS: Bedside Glucose 127 mg/dL (70-110)
[2019-11-12 07:00] VITALS: BP 155/91; PULSE 81; RESP 18; TEMP 36.9; O2SAT 96
--- NOTE | 2019-11-12 07:15 | NURSING ---
pt used bed alarm instead of call light for toileting needs. Staff found pt attempting to self transfer to . Staff re-educated of fall precautions. Pt continued to be non-compliant.
[2019-11-12] MEDS: metFORMIN (XR) 500 MG Tablet PO (08:01)
[2019-11-12] MEDS: Aspirin E.C. 81 MG Tablet PO (08:01)
[2019-11-12] MEDS: Pantoprazole Sodium 40 MG Tablet PO ×2 (08:02→21:01)
[2019-11-12] MEDS: Losartan Potassium 100 MG Tablet PO (08:02)
[2019-11-12] MEDS: Capsaicin 0.025% 1 APPLIC Tube TOPICAL ×2 (08:03→21:01)
[2019-11-12] MEDS: AMOXICILLIN 500 MG CAPSULE 1000 MG PO ×2 (10:01→21:01)
[2019-11-12 11:55] LABS: Bedside Glucose 135 mg/dL (70-110)
[2019-11-12 12:00] VITALS: BP 132/90; PULSE 90
--- NOTE | 2019-11-12 13:50 | CASEMGMT ---
Social Work Spoke with JORGE about [facility] Agenices. JORGE chose [facility] - referral made for PT/OT/SN. Informed her that cane will be ordered through [facility] and she is to pick it up. JORGE understands. Angelica Martin, [employer] HELPER PILLOW FILLER
[2019-11-12 16:41] LABS: Bedside Glucose 121 mg/dL (70-110)
[2019-11-12 19:32] VITALS: BP 121/87; PULSE 85; RESP 16; TEMP 36.9; O2SAT 96
[2019-11-12] MEDS: Mirtazapine 15 MG Tablet 7.5 MG PO (19:46)
--- NOTE | 2019-11-12 20:43 | NURSING ---
Pt having x3 loose stool within 30 minutes and getting up with urgency to get to toilet. Dr Dickinson notified before leaving floor and N/O for Imodium 2-4mg Q4H/PRN. Pt refused Imodium at this time
[2019-11-12] MEDS: Zolpidem Tartrate 5 MG Tablet PO (21:00)
[2019-11-12 21:11] LABS: Bedside Glucose 155 mg/dL (70-110)
[2019-11-12 21:30] VITALS: BMI 22.7
--- NOTE | 2019-11-13 06:33 | NURSING ---
Pt set off bed alarms this a.m. for toileting needs. Staff attempted to persuade pt to clean up for the day and pt refused a.m. ADLs at this time. Pt wanted to go back to bed. Pt repositioned in bed and closed eyes. Staff took VS and asked pt again before leaving room about ADLs and pt said, Not now.
[2019-11-13 06:35] LABS: Bedside Glucose 159 mg/dL (70-110)
[2019-11-13 08:25] VITALS: BP 128/86; PULSE 78; RESP 17; TEMP 36.6; O2SAT 96
[2019-11-13] MEDS: Loperamide 2 MG Capsule PO (08:25)
[2019-11-13] MEDS: Aspirin E.C. 81 MG Tablet PO (08:26)
[2019-11-13] MEDS: Pantoprazole Sodium 40 MG Tablet PO ×2 (08:26→20:58)
[2019-11-13] MEDS: Losartan Potassium 100 MG Tablet PO (08:26)
[2019-11-13] MEDS: AMOXICILLIN 500 MG CAPSULE 1000 MG PO ×2 (08:26→20:59)
[2019-11-13] MEDS: Capsaicin 0.025% 1 APPLIC Tube TOPICAL ×2 (08:26→20:57)
[2019-11-13] MEDS: metFORMIN (XR) 500 MG Tablet PO (08:26)
[2019-11-13 09:43] VITALS: BMI 22.7
[2019-11-13 11:20] LABS: Bedside Glucose 175 mg/dL (70-110)
[2019-11-13 16:35] LABS: Bedside Glucose 103 mg/dL (70-110)
[2019-11-13] MEDS: Mirtazapine 15 MG Tablet 7.5 MG PO (19:59)
[2019-11-13] MEDS: Zolpidem Tartrate 5 MG Tablet PO (20:59)
[2019-11-13 21:05] VITALS: BP 129/93; PULSE 83; RESP 18; TEMP 37.1; O2SAT 99
[2019-11-13 21:14] VITALS: BMI 22.7
--- NOTE | 2019-11-13 21:15 | NURSING ---
pt found to be self transferring into the restroom about 1999. pt alarm not sounding, pt stated he took it off. pt reminding of call light use for safety. PA and BA intact with call light within reach.
[2019-11-13 22:11] LABS: Bedside Glucose 140 mg/dL (70-110)
[2019-11-14] MEDS: Aspirin E.C. 81 MG Tablet PO (07:15)
[2019-11-14] MEDS: Pantoprazole Sodium 40 MG Tablet PO ×2 (07:16→20:55)
[2019-11-14] MEDS: AMOXICILLIN 500 MG CAPSULE 1000 MG PO ×2 (07:16→20:54)
[2019-11-14] MEDS: metFORMIN (XR) 500 MG Tablet PO (07:16)
[2019-11-14] MEDS: Losartan Potassium 100 MG Tablet PO (07:16)
[2019-11-14] MEDS: Capsaicin 0.025% 1 APPLIC Tube TOPICAL ×2 (07:17→20:56)
[2019-11-14 07:35] VITALS: BP 116/87; PULSE 85; RESP 16; TEMP 36.7; O2SAT 95
[2019-11-14 07:41] LABS: Bedside Glucose 148 mg/dL (70-110)
[2019-11-14 08:37] VITALS: BMI 22.7
[2019-11-14 12:00] LABS: Bedside Glucose 102 mg/dL (70-110)
--- NOTE | 2019-11-14 14:02 | NURSING ---
Pt continues to be non-compliant with [place] water protocol requirements. Pt eating snacks and refusing to do oral care and wait the 30 minutes prior to drinking thin water. Education provided with no effect. Pt also continues to self transfer setting off bed exit/personal alarms despite staff education.
[2019-11-14 16:56] LABS: Bedside Glucose 102 mg/dL (70-110)
[2019-11-14] MEDS: Mirtazapine 15 MG Tablet 7.5 MG PO (20:10)
--- NOTE | 2019-11-14 20:12 | NURSING ---
pt continues to be noncompliant with transfers. pt noted to be self transferring x2 since 1900 this hs. pt educated on safety with no effect. pt continues to take personal alarm off. Pt also remains noncompliant with FWP. pt eats snacks and refuses oral care and refuses to wait 30 minutes prior to the intake of thin water. staff continues to education patient with no effect.
[2019-11-14] MEDS: Zolpidem Tartrate 5 MG Tablet PO (20:54)
[2019-11-14 21:16] LABS: Bedside Glucose 180 mg/dL (70-110)
[2019-11-14 22:00] VITALS: BP 144/88; PULSE 82; RESP 16; TEMP 37.2; O2SAT 98
[2019-11-15 00:52] VITALS: BMI 22.7
[2019-11-15 07:00] VITALS: BP 117/69; PULSE 91; RESP 18; TEMP 36.7; O2SAT 94
[2019-11-15 07:11] LABS: Bedside Glucose 142 mg/dL (70-110)
[2019-11-15] MEDS: Losartan Potassium 100 MG Tablet PO (07:38)
[2019-11-15] MEDS: Pantoprazole Sodium 40 MG Tablet PO (07:38)
[2019-11-15] MEDS: AMOXICILLIN 500 MG CAPSULE 1000 MG PO (07:38)
[2019-11-15] MEDS: Capsaicin 0.025% 1 APPLIC Tube TOPICAL (07:39)
[2019-11-15] MEDS: Aspirin E.C. 81 MG Tablet PO (07:39)
[2019-11-15] MEDS: metFORMIN (XR) 500 MG Tablet PO (07:39)
--- NOTE | 2019-11-15 10:19 | DCINST_ITS ---
- Discharge Diagnoses Current Active Problems: Current Active and Chronic Problems (Last Reviewed 11/04/19 @ 17:[address] Pamela Dickinson, DO) Ischemic cerebrovascular disease (Chronic) moderate white matter diffuse disease on MRI and CT of the brain with moderate ventricular dilatation Cerebral atrophy (Chronic) moderate with ventricular dilatation Hypomagnesemia (Acute) Normochromic normocytic anemia (Acute) Helicobacter pylori (H. pylori) infection (Acute) You will use the following diet at home:: Calorie/Carbohydrate Controlled (specify 1200, 1400, etc) - carbohydrate controlled: 1:1 supervision; NO STRAWS Your food should be the consistency of: Regular Your liquids should be the consistency of: Ravinia Thick Discharge Activity: - - complete the exercises given to you by the therapists twice a day Weight Bearing Status: Full weight bearing Call your doctor if you observe: Fever of 101 or Higher, Inability to urinate, Inability to have a bowel movement, Shortness of breath, Dizziness, Fainting spells, Swelling in the ankles, Chest pain, Increased palpitations (irregular heartbeat), Uncontrolled pain, - - Go the ED or call 911 immediately if sudden onset: 1. facial droop 2. slurred speech or inability to get words out 3. weakness or numbness on 1 side of the body and not the other 4. vertigo or room spinning 5. loss of vision Call your PCP if severe diarrhea ( > 5 stools a day), painful sores in the mouth, painful swallowing, rash or itching. Taking a probiotic such as Lactobacillus or Kefir can help with loose stools while taking antibiotics. Instructions: What Is Atrial Flutter/Atrial Fibrillation?, Hypoglycemia (Low Blood Sugar) Additional Instructions: 1. We changed some of your medications in the hospital. You had a HGBA1C of only 5.4% in the hospital. This is too low for a man your age and you have probably been having low blood sugars at home. A low blood sugar makes you sweaty, lightheaded, confused and nauseated. You can have a seizure or pass out if the blood sugar is too low. Your blood sugars in the hospital on only Metformin XL 500 mg once a day have been good. Rare blood sugar > 200 and no blood sugars that are too low. This is what you are being sent home with. 2. I am placing you on Miralax daily. Miralax is a sttol softener, not a laxative. You have to take everyday. If you are still constipate then increase the Miralax to twice daily. If you have not had a BM in 3 days then you can take a laxative......use Milk of Magnesia 30-45 cc. If you increase your water intake then you will not have as much problem with constipation. 3. We had a problem in the hospital with your BP dropping when you stood up and making you lightheaded. This was due to the medication for the prostate. I have decreased the dose of the Tamulosin to only 1 tab daily at bedtime. Do not take the Tamulosin until Friday. 4. There is an interaction between one of the medicines to get rid of the bacteria in your stomach (Clarithromycin) and Tamulosin, Atorvastatin and Trazodone. Do not restart these medications until Friday. The Clarithrommycin will finish after the last dose on evening and then it is OK to restart the Trazodone, Atorvastatin and Tamulosin......only 1 Tamulosin a day, NOT 2. 5. You do not seem depressed to me since the stomach porblems are better but, your appetite is still not good. I talked with Dr. Acevedo and antidepressants did not seem to help with this. Wellbutrin actually decreases appetite and it also lowers seizure threshold so we have discontinued the Wellbutrin. I am starting you on a Medication called Marinol which you will take twice a day. Marinol is a synthetic of some of the chemicals in marijuana. It increases appetite but does NOT set you high. It works quite well to increase appetite and the biggest side effect is to increase appetite. We gave you a dose in the hospital and you tolerated it well without any adverse side effects. 7. Dr. Quach and Dr. Nelson think you may be having a problem with the rhythm of your heart called atrial fibrillation. They would like to insert a loop recorder in you. This goes under your skin and is small and it will work for a few years to see if your are having atrial fibrillation. If you are having intermittent atrial fibrillation then you will need to bbe placed on a blood thinner to prevent any more strokes. 6. It was a pleasure to meet you [place] and also to talk with your family. If you have any questions after you go home I can be reached at [phone] (office) or [phone] (cell). Take care and if you ever need our services again in rehab we would be happy to have you back. Pending Tests on Discharge: none Allergies/Adverse Reactions: Allergies No Known Allergies Allergy (Verified 11/02/19 17:26) Medications to take at Discharge aspirin 81 mg tablet,delayed release 81 mg PO DAILY@0800 02/10/19 Clopidogrel Bisulfate [Plavix] 75 mg PO DAILY 11/03/19 Acetaminophen [Tylenol Tablet] 650 mg PO Q6H PRN PRN tab 11/15/19 Amoxicillin [Amoxil] 1,000 mg PO Q12 #7 cap 11/15/19 Atorvastatin Calcium 40 mg PO QHS #0 11/15/19 Capsaicin [Zostrix] 56.6 gm TP TID PRN PRN #56.6 cream..g. 11/15/19 Clarithromycin [Biaxin] 500 mg PO BID #7 tab 11/15/19 Dronabinol [Marinol] 2.5 mg PO BIDAC #60 cap 11/15/19 Loperamide [Imodium] 2 - 4 mg PO Q4H PRN PRN cap 11/15/19 Losartan Potassium [Cozaar] 100 mg PO DAILY #30 tab 11/15/19 Pantoprazole Sodium [Protonix] 40 mg PO BID #35 tab 11/15/19 Polyethylene Glycol 3350 [Miralax] 17 gm PO DAILY #765 gm 11/15/19 Tamsulosin HCl [Flomax] 0.4 mg PO QHS #30 cap 11/15/19 Trazodone HCl 50 mg PO QHS #0 11/15/19 metFORMIN (XR) [Glucophage Xr] 500 mg PO DAILYCM #30 tab 11/15/19 The following prescriptions were given: Amoxicillin [Amoxil] 1,000 mg PO Q12 #7 cap Transmission Status: Sent to [facility] Clarithromycin [Biaxin] 500 mg PO BID #7 tab Transmission Status: Sent to [facility] Losartan Potassium [Cozaar] 100 mg PO DAILY #30 tab Transmission Status: Sent to [facility] Tamsulosin HCl [Flomax] 0.4 mg PO QHS #30 cap Transmission Status: Sent to [facility] metFORMIN (XR) [Glucophage Xr] 500 mg PO DAILYCM #30 tab Prescription Printed Dronabinol [Marinol] 2.5 mg PO BIDAC #60 cap Transmission Status: Sent to [facility] Polyethylene Glycol 3350 [Miralax] 17 gm PO DAILY #765 gm Transmission Status: Sent to [facility] Pantoprazole Sodium [Protonix] 40 mg PO BID #35 tab Transmission Status: Sent to [facility] Capsaicin [Zostrix] 56.6 gm TP TID PRN PRN #56.6 cream..g. PRN Reason: painful joints Transmission Status: Sent to [facility] Primary Care Physician: Diamond Acevedo MD [Primary Care Provider] - Please follow up with your Primary Care Physician in: 7-10 days Test Results: Test results from this visit will be discussed in further detail at your follow- up appointment, if applicable. Please Follow Up With: Dr. Acevedo Please Follow Up With: Dr. Bryant Please Follow Up With: Tristen Quach MD When: call the office for an appt to set up a time to insert the loop recorder Proposed Discharge Date: 11/15/19
[2019-11-15] MEDS: Dronabinol 2.5 MG Capsule PO (10:24)
[2019-11-15 10:29] VITALS: BMI 22.7
[2019-11-15] MEDS: Magnesium Hydroxide 30 ML UDC 45 ML PO (10:33)
[2019-11-15 11:30] VITALS: BP 117/69; PULSE 91; RESP 18; TEMP 36.7; O2SAT 94
--- NOTE | 2019-11-15 11:31 | DS.PCM_ITS ---
Discharge Date and Diagnosis - Problem List Patient Problems: Active and Suspected Problems (Last Updated 11/15/19 @ 10:[address] Pamela Dickinson DO) Orthostatic hypotension (Acute) Acute CVA (cerebrovascular accident) (Acute) L frontal acute and NEW L side basal ganglia lacunar infarcts Hypomagnesemia (Acute) Normochromic normocytic anemia (Acute) Helicobacter pylori (H. pylori) infection (Acute) Date of Admission: 11/03/19 Date of Discharge: 11/15/19 - Primary Discharge Diagnosis Acute Problems: Active Problems (Last Updated 11/15/19 @ 10:[address] 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 Pamela Dickinson DO) HTN (hypertension) (Chronic) HLD (hyperlipidemia) (Chronic) Anxiety and depression (Chronic) Ischemic cerebrovascular disease (Chronic) moderate white matter diffuse disease on MRI and CT of the brain with moderate ventricular dilatation Cerebral atrophy (Chronic) moderate with ventricular dilatation CVA (cerebral vascular accident) (Chronic) BPH (benign prostatic hyperplasia) (Chronic) Diabetes mellitus (Chronic) Ventral hernia (Chronic) inanition Hospital Course and Treatment Imaging Results: Laboratory Results - last 24 hr 11/14/19 11/14/19 11/14/19 11:54 16:36 20:58 POC Glucose 102 102 180 H 11/15/19 07:05 POC Glucose 142 H Microbiology 11/04/19 17:00 Urine, Catheterized Urine Culture - Final Culture exhibits no growth. 11/06/19 04:55 Interface Orders Stool Occult Blood (LONG) - Final negative Laboratory Tests 11/15/19 11/15/19 11/14/19 Range/Units 11:40 07:05 20:58 WBC (4.4-11.0) K/mm3 RBC (4.6-6.2) M/mm3 Hgb (13.0-16.5) g/dL Hct (40-54) % MCV (80-94) fL MCH (27.0-32.0) pg MCHC (32-36) g/dL RDW Std Deviation (35.1-43.9) fl RDW Coeff of Brunilda (11.6-14.6) % Plt Count (150-450) K/mm3 MPV (6.2-12.0) fl Immature Gran % (Auto) (0.0-0.9) % Neut % (Auto) (47-70) % Lymph % (Auto) (19-41) % [place] % (Auto) (0-10) % Eos % (Auto) (0-5) % Baso % (Auto) (0-1) % Absolute Neuts (auto) (2.0-7.7) X10^3/uL Absolute Lymphs (auto) (0.83-4.51) X10^3/uL Nucleated RBC % (0-5) % Protein C Antigen (60-150) % Prot C Funct Activity (73-180) % Antithrombin III Ag (72-124) % Func Antithrombin III (75-135) % Factor V Leiden Mutat (.) Sodium (136-145) mmol/L Potassium (3.5-5.1) mmol/L Chloride (98-107) mmol/L Carbon Dioxide (21.0-32.0) mmol/L Anion Gap (5-15) BUN (7-18) mg/dL Creatinine (0.70-1.30) mg/dL Estim Creat Clear Calc ml/min Est GFR (MDRD) Af Amer (>60) mL/min Est GFR (MDRD) Non-Af (>60) mL/min BUN/Creatinine Ratio (10-20) RATIO Glucose (74-106) mg/dL Serum Osmolality (280-301) mOsm/KG Calcium (8.5-10.1) mg/dL Phosphorus (2.5-4.9) mg/dL Magnesium (1.6-2.6) mg/dL Lipase (73-393) U/L PSA Screen (0.00-4.00) ng/mL Vitamin B12 (211-911) pg/mL Cortisol (3.44-22.45) ug/dL Urine Color (Yellow) Urine Clarity (Clear) Urine pH (5.0 - 8.0) Ur Specific [place] (1.002-1.030) Urine Protein (Negative) mg/dl Urine Glucose (UA) (Normal) mg/dl Urine Ketones (Negative) mg/dl Urine Occult Blood (Negative) /ul Urine Nitrite (Negative) Urine Bilirubin (Negative) mg/dL Urine Urobilinogen (Normal) mg/dl Ur Leukocyte Esterase (Negative) /ul Urine RBC (0-5) /hpf Urine WBC (0-5) /hpf Ur Squamous Epith Cells (0-5) /hpf Ur Transition Epith Cell (0-5) /hpf Urine Bacteria (None Seen) /hpf Urine Mucus (<or=2+) /hpf Urine Osmolality (50 - ) mOsm/KG Ur Random Sodium (Not Establ.) mmol/L Rheumatoid Factor (<15) IU/mL WENDY Screen (Negative) LAYA-1 Antibody SS-A/Ro IgG Antibody SS-B/La IgG Antibody Sm (Edouard) Antibody TANK CREWMEMBER Antibody Scl-70 Scleroderma Ab Double Strand DNA Ab Centromere B Antibody Beta-2-GPI IgG Ab (0-20) Beta-2-GPI IgA Ab (0-25) Beta-2-GPI IgM Ab (0-32) Anti-Cardiolipin IgG Ab (0-14) GPL U/mL Anti-Cardiolipin IgM Ab (0-12) MPL U/mL Factor II DNA Analysis (.) POC Glucose 160 H 142 H 180 H (70-110) mg/dL 11/14/19 11/14/19 11/14/19 Range/Units 16:36 11:54 07:28 WBC (4.4-11.0) K/mm3 RBC (4.6-6.2) M/mm3 Hgb (13.0-16.5) g/dL Hct (40-54) % MCV (80-94) fL MCH (27.0-32.0) pg MCHC (32-36) g/dL RDW Std Deviation (35.1-43.9) fl RDW Coeff of Brunilda (11.6-14.6) % Plt Count (150-450) K/mm3 MPV (6.2-12.0) fl Immature Gran % (Auto) (0.0-0.9) % Neut % (Auto) (47-70) % Lymph % (Auto) (19-41) % [place] % (Auto) (0-10) % Eos % (Auto) (0-5) % Baso % (Auto) (0-1) % Absolute Neuts (auto) (2.0-7.7) X10^3/uL Absolute Lymphs (auto) (0.83-4.51) X10^3/uL Nucleated RBC % (0-5) % Protein C Antigen (60-150) % Prot C Funct Activity (73-180) % Antithrombin III Ag (72-124) % Func Antithrombin III (75-135) % Factor V Leiden Mutat (.) Sodium (136-145) mmol/L Potassium (3.5-5.1) mmol/L Chloride (98-107) mmol/L Carbon Dioxide (21.0-32.0) mmol/L Anion Gap (5-15) BUN (7-18) mg/dL Creatinine (0.70-1.30) mg/dL Estim Creat Clear Calc ml/min Est GFR (MDRD) Af Amer (>60) mL/min Est GFR (MDRD) Non-Af (>60) mL/min BUN/Creatinine Ratio (10-20) RATIO Glucose (74-106) mg/dL Serum Osmolality (280-301) mOsm/KG Calcium (8.5-10.1) mg/dL Phosphorus (2.5-4.9) mg/dL Magnesium (1.6-2.6) mg/dL Lipase (73-393) U/L PSA Screen (0.00-4.00) ng/mL Vitamin B12 (211-911) pg/mL Cortisol (3.44-22.45) ug/dL Urine Color (Yellow) Urine Clarity (Clear) Urine pH (5.0 - 8.0) Ur Specific [place] (1.002-1.030) Urine Protein (Negative) mg/dl Urine Glucose (UA) (Normal) mg/dl Urine Ketones (Negative) mg/dl Urine Occult Blood (Negative) /ul Urine Nitrite (Negative) Urine Bilirubin (Negative) mg/dL Urine Urobilinogen (Normal) mg/dl Ur Leukocyte Esterase (Negative) /ul Urine RBC (0-5) /hpf Urine WBC (0-5) /hpf Ur Squamous Epith Cells (0-5) /hpf Ur Transition Epith Cell (0-5) /hpf Urine Bacteria (None Seen) /hpf Urine Mucus (<or=2+) /hpf Urine Osmolality (50 - ) mOsm/KG Ur Random Sodium (Not Establ.) mmol/L Rheumatoid Factor (<15) IU/mL WENDY Screen (Negative) LAYA-1 Antibody SS-A/Ro IgG Antibody SS-B/La IgG Antibody Sm (Edouard) Antibody TANK CREWMEMBER Antibody Scl-70 Scleroderma Ab Double Strand DNA Ab Centromere B Antibody Beta-2-GPI IgG Ab (0-20) Beta-2-GPI IgA Ab (0-25) Beta-2-GPI IgM Ab (0-32) Anti-Cardiolipin IgG Ab (0-14) GPL U/mL Anti-Cardiolipin IgM Ab (0-12) MPL U/mL Factor II DNA Analysis (.) POC Glucose 102 102 148 H (70-110) mg/dL 11/13/19 11/13/19 11/13/19 Range/Units 22:07 16:31 11:14 WBC (4.4-11.0) K/mm3 RBC (4.6-6.2) M/mm3 Hgb (13.0-16.5) g/dL Hct (40-54) % MCV (80-94) fL MCH (27.0-32.0) pg MCHC (32-36) g/dL RDW Std Deviation (35.1-43.9) fl RDW Coeff of Brunilda (11.6-14.6) % Plt Count (150-450) K/mm3 MPV (6.2-12.0) fl Immature Gran % (Auto) (0.0-0.9) % Neut % (Auto) (47-70) % Lymph % (Auto) (19-41) % [place] % (Auto) (0-10) % Eos % (Auto) (0-5) % Baso % (Auto) (0-1) % Absolute Neuts (auto) (2.0-7.7) X10^3/uL Absolute Lymphs (auto) (0.83-4.51) X10^3/uL Nucleated RBC % (0-5) % Protein C Antigen (60-150) % Prot C Funct Activity (73-180) % Antithrombin III Ag (72-124) % Func Antithrombin III (75-135) % Factor V Leiden Mutat (.) Sodium (136-145) mmol/L Potassium (3.5-5.1) mmol/L Chloride (98-107) mmol/L Carbon Dioxide (21.0-32.0) mmol/L Anion Gap (5-15) BUN (7-18) mg/dL Creatinine (0.70-1.30) mg/dL Estim Creat Clear Calc ml/min Est GFR (MDRD) Af Amer (>60) mL/min Est GFR (MDRD) Non-Af (>60) mL/min BUN/Creatinine Ratio (10-20) RATIO Glucose (74-106) mg/dL Serum Osmolality (280-301) mOsm/KG Calcium (8.5-10.1) mg/dL Phosphorus (2.5-4.9) mg/dL Magnesium (1.6-2.6) mg/dL Lipase (73-393) U/L PSA Screen (0.00-4.00) ng/mL Vitamin B12 (211-911) pg/mL Cortisol (3.44-22.45) ug/dL Urine Color (Yellow) Urine Clarity (Clear) Urine pH (5.0 - 8.0) Ur Specific [place] (1.002-1.030) Urine Protein (Negative) mg/dl Urine Glucose (UA) (Normal) mg/dl Urine Ketones (Negative) mg/dl Urine Occult Blood (Negative) /ul Urine Nitrite (Negative) Urine Bilirubin (Negative) mg/dL Urine Urobilinogen (Normal) mg/dl Ur Leukocyte Esterase (Negative) /ul Urine RBC (0-5) /hpf Urine WBC (0-5) /hpf Ur Squamous Epith Cells (0-5) /hpf Ur Transition Epith Cell (0-5) /hpf Urine Bacteria (None Seen) /hpf Urine Mucus (<or=2+) /hpf Urine Osmolality (50 - ) mOsm/KG Ur Random Sodium (Not Establ.) mmol/L Rheumatoid Factor (<15) IU/mL WENDY Screen (Negative) LAYA-1 Antibody SS-A/Ro IgG Antibody SS-B/La IgG Antibody Sm (Edouard) Antibody TANK CREWMEMBER Antibody Scl-70 Scleroderma Ab Double Strand DNA Ab Centromere B Antibody Beta-2-GPI IgG Ab (0-20) Beta-2-GPI IgA Ab (0-25) Beta-2-GPI IgM Ab (0-32) Anti-Cardiolipin IgG Ab (0-14) GPL U/mL Anti-Cardiolipin IgM Ab (0-12) MPL U/mL Factor II DNA Analysis (.) POC Glucose 140 H 103 175 H (70-110) mg/dL 11/13/19 11/12/19 11/12/19 Range/Units 06:27 21:00 16:37 WBC (4.4-11.0) K/mm3 RBC (4.6-6.2) M/mm3 Hgb (13.0-16.5) g/dL Hct (40-54) % MCV (80-94) fL MCH (27.0-32.0) pg MCHC (32-36) g/dL RDW Std Deviation (35.1-43.9) fl RDW Coeff of Brunilda (11.6-14.6) % Plt Count (150-450) K/mm3 MPV (6.2-12.0) fl Immature Gran % (Auto) (0.0-0.9) % Neut % (Auto) (47-70) % Lymph % (Auto) (19-41) % [place] % (Auto) (0-10) % Eos % (Auto) (0-5) % Baso % (Auto) (0-1) % Absolute Neuts (auto) (2.0-7.7) X10^3/uL Absolute Lymphs (auto) (0.83-4.51) X10^3/uL Nucleated RBC % (0-5) % Protein C Antigen (60-150) % Prot C Funct Activity (73-180) % Antithrombin III Ag (72-124) % Func Antithrombin III (75-135) % Factor V Leiden Mutat (.) Sodium (136-145) mmol/L Potassium (3.5-5.1) mmol/L Chloride (98-107) mmol/L Carbon Dioxide (21.0-32.0) mmol/L Anion Gap (5-15) BUN (7-18) mg/dL Creatinine (0.70-1.30) mg/dL Estim Creat Clear Calc ml/min Est GFR (MDRD) Af Amer (>60) mL/min Est GFR (MDRD) Non-Af (>60) mL/min BUN/Creatinine Ratio (10-20) RATIO Glucose (74-106) mg/dL Serum Osmolality (280-301) mOsm/KG Calcium (8.5-10.1) mg/dL Phosphorus (2.5-4.9) mg/dL Magnesium (1.6-2.6) mg/dL Lipase (73-393) U/L PSA Screen (0.00-4.00) ng/mL Vitamin B12 (211-911) pg/mL Cortisol (3.44-22.45) ug/dL Urine Color (Yellow) Urine Clarity (Clear) Urine pH (5.0 - 8.0) Ur Specific [place] (1.002-1.030) Urine Protein (Negative) mg/dl Urine Glucose (UA) (Normal) mg/dl Urine Ketones (Negative) mg/dl Urine Occult Blood (Negative) /ul Urine Nitrite (Negative) Urine Bilirubin (Negative) mg/dL Urine Urobilinogen (Normal) mg/dl Ur Leukocyte Esterase (Negative) /ul Urine RBC (0-5) /hpf Urine WBC (0-5) /hpf Ur Squamous Epith Cells (0-5) /hpf Ur Transition Epith Cell (0-5) /hpf Urine Bacteria (None Seen) /hpf Urine Mucus (<or=2+) /hpf Urine Osmolality (50 - ) mOsm/KG Ur Random Sodium (Not Establ.) mmol/L Rheumatoid Factor (<15) IU/mL WENDY Screen (Negative) LAYA-1 Antibody SS-A/Ro IgG Antibody SS-B/La IgG Antibody Sm (Edouard) Antibody TANK CREWMEMBER Antibody Scl-70 Scleroderma Ab Double Strand DNA Ab Centromere B Antibody Beta-2-GPI IgG Ab (0-20) Beta-2-GPI IgA Ab (0-25) Beta-2-GPI IgM Ab (0-32) Anti-Cardiolipin IgG Ab (0-14) GPL U/mL Anti-Cardiolipin IgM Ab (0-12) MPL U/mL Factor II DNA Analysis (.) POC Glucose 159 H 155 H 121 H (70-110) mg/dL 11/12/19 11/12/19 11/11/19 Range/Units 11:48 06:19 22:13 WBC (4.4-11.0) K/mm3 RBC (4.6-6.2) M/mm3 Hgb (13.0-16.5) g/dL Hct (40-54) % MCV (80-94) fL MCH (27.0-32.0) pg MCHC (32-36) g/dL RDW Std Deviation (35.1-43.9) fl RDW Coeff of Brunilda (11.6-14.6) % Plt Count (150-450) K/mm3 MPV (6.2-12.0) fl Immature Gran % (Auto) (0.0-0.9) % Neut % (Auto) (47-70) % Lymph % (Auto) (19-41) % [place] % (Auto) (0-10) % Eos % (Auto) (0-5) % Baso % (Auto) (0-1) % Absolute Neuts (auto) (2.0-7.7) X10^3/uL Absolute Lymphs (auto) (0.83-4.51) X10^3/uL Nucleated RBC % (0-5) % Protein C Antigen (60-150) % Prot C Funct Activity (73-180) % Antithrombin III Ag (72-124) % Func Antithrombin III (75-135) % Factor V Leiden Mutat (.) Sodium (136-145) mmol/L Potassium (3.5-5.1) mmol/L Chloride (98-107) mmol/L Carbon Dioxide (21.0-32.0) mmol/L Anion Gap (5-15) BUN (7-18) mg/dL Creatinine (0.70-1.30) mg/dL Estim Creat Clear Calc ml/min Est GFR (MDRD) Af Amer (>60) mL/min Est GFR (MDRD) Non-Af (>60) mL/min BUN/Creatinine Ratio (10-20) RATIO Glucose (74-106) mg/dL Serum Osmolality (280-301) mOsm/KG Calcium (8.5-10.1) mg/dL Phosphorus (2.5-4.9) mg/dL Magnesium (1.6-2.6) mg/dL Lipase (73-393) U/L PSA Screen (0.00-4.00) ng/mL Vitamin B12 (211-911) pg/mL Cortisol (3.44-22.45) ug/dL Urine Color (Yellow) Urine Clarity (Clear) Urine pH (5.0 - 8.0) Ur Specific [place] (1.002-1.030) Urine Protein (Negative) mg/dl Urine Glucose (UA) (Normal) mg/dl Urine Ketones (Negative) mg/dl Urine Occult Blood (Negative) /ul Urine Nitrite (Negative) Urine Bilirubin (Negative) mg/dL Urine Urobilinogen (Normal) mg/dl Ur Leukocyte Esterase (Negative) /ul Urine RBC (0-5) /hpf Urine WBC (0-5) /hpf Ur Squamous Epith Cells (0-5) /hpf Ur Transition Epith Cell (0-5) /hpf Urine Bacteria (None Seen) /hpf Urine Mucus (<or=2+) /hpf Urine Osmolality (50 - ) mOsm/KG Ur Random Sodium (Not Establ.) mmol/L Rheumatoid Factor (<15) IU/mL WENDY Screen (Negative) LAYA-1 Antibody SS-A/Ro IgG Antibody SS-B/La IgG Antibody Sm (Edouard) Antibody TANK CREWMEMBER Antibody Scl-70 Scleroderma Ab Double Strand DNA Ab Centromere B Antibody Beta-2-GPI IgG Ab (0-20) Beta-2-GPI IgA Ab (0-25) Beta-2-GPI IgM Ab (0-32) Anti-Cardiolipin IgG Ab (0-14) GPL U/mL Anti-Cardiolipin IgM Ab (0-12) MPL U/mL Factor II DNA Analysis (.) POC Glucose 135 H 127 H 112 H (70-110) mg/dL 11/11/19 11/11/19 11/11/19 Range/Units 16:40 11:56 06:12 WBC (4.4-11.0) K/mm3 RBC (4.6-6.2) M/mm3 Hgb (13.0-16.5) g/dL Hct (40-54) % MCV (80-94) fL MCH (27.0-32.0) pg MCHC (32-36) g/dL RDW Std Deviation (35.1-43.9) fl RDW Coeff of Brunilda (11.6-14.6) % Plt Count (150-450) K/mm3 MPV (6.2-12.0) fl Immature Gran % (Auto) (0.0-0.9) % Neut % (Auto) (47-70) % Lymph % (Auto) (19-41) % [place] % (Auto) (0-10) % Eos % (Auto) (0-5) % Baso % (Auto) (0-1) % Absolute Neuts (auto) (2.0-7.7) X10^3/uL Absolute Lymphs (auto) (0.83-4.51) X10^3/uL Nucleated RBC % (0-5) % Protein C Antigen (60-150) % Prot C Funct Activity (73-180) % Antithrombin III Ag (72-124) % Func Antithrombin III (75-135) % Factor V Leiden Mutat (.) Sodium (136-145) mmol/L Potassium (3.5-5.1) mmol/L Chloride (98-107) mmol/L Carbon Dioxide (21.0-32.0) mmol/L Anion Gap (5-15) BUN (7-18) mg/dL Creatinine (0.70-1.30) mg/dL Estim Creat Clear Calc ml/min Est GFR (MDRD) Af Amer (>60) mL/min Est GFR (MDRD) Non-Af (>60) mL/min BUN/Creatinine Ratio (10-20) RATIO Glucose (74-106) mg/dL Serum Osmolality (280-301) mOsm/KG Calcium (8.5-10.1) mg/dL Phosphorus (2.5-4.9) mg/dL Magnesium (1.6-2.6) mg/dL Lipase (73-393) U/L PSA Screen (0.00-4.00) ng/mL Vitamin B12 (211-911) pg/mL Cortisol (3.44-22.45) ug/dL Urine Color (Yellow) Urine Clarity (Clear) Urine pH (5.0 - 8.0) Ur Specific [place] (1.002-1.030) Urine Protein (Negative) mg/dl Urine Glucose (UA) (Normal) mg/dl Urine Ketones (Negative) mg/dl Urine Occult Blood (Negative) /ul Urine Nitrite (Negative) Urine Bilirubin (Negative) mg/dL Urine Urobilinogen (Normal) mg/dl Ur Leukocyte Esterase (Negative) /ul Urine RBC (0-5) /hpf Urine WBC (0-5) /hpf Ur Squamous Epith Cells (0-5) /hpf Ur Transition Epith Cell (0-5) /hpf Urine Bacteria (None Seen) /hpf Urine Mucus (<or=2+) /hpf Urine Osmolality (50 - ) mOsm/KG Ur Random Sodium (Not Establ.) mmol/L Rheumatoid Factor (<15) IU/mL WENDY Screen (Negative) LAYA-1 Antibody SS-A/Ro IgG Antibody SS-B/La IgG Antibody Sm ([place]ouard) Antibody TANK CREWMEMBER Antibody Scl-70 Scleroderma Ab Double Strand DNA Ab Centromere B Antibody Beta-2-GPI IgG Ab (0-20) Beta-2-GPI IgA Ab (0-25) Beta-2-GPI IgM Ab (0-32) Anti-Cardiolipin IgG Ab (0-14) GPL U/mL Anti-Cardiolipin IgM Ab (0-12) MPL U/mL Factor II DNA Analysis (.) POC Glucose 130 H 114 H 125 H (70-110) mg/dL 11/11/19 11/11/19 11/10/19 Range/Units 06:06 06:06 21:44 WBC 6.8 (4.4-11.0) K/mm3 RBC 3.81 L (4.6-6.2) M/mm3 Hgb 10.7 L (13.0-16.5) g/dL Hct 33.1 L (40-54) % MCV 86.9 (80-94) fL MCH 28.1 (27.0-32.0) pg MCHC 32.3 (32-36) g/dL RDW Std Deviation 44.1 H (35.1-43.9) fl RDW Coeff of Brunilda 13.8 (11.6-14.6) % Plt Count 214 (150-450) K/mm3 MPV 8.7 (6.2-12.0) fl Immature Gran % (Auto) 0.400 (0.0-0.9) % Neut % (Auto) 58.9 (47-70) % Lymph % (Auto) 22.7 (19-41) % [place] % (Auto) 11.4 H (0-10) % Eos % (Auto) 5.6 H (0-5) % Baso % (Auto) 1.0 (0-1) % Absolute Neuts (auto) 4.0 (2.0-7.7) X10^3/uL Absolute Lymphs (auto) 1.55 (0.83-4.51) X10^3/uL Nucleated RBC % 0 (0-5) % Protein C Antigen (60-150) % Prot C Funct Activity (73-180) % Antithrombin III Ag (72-124) % Func Antithrombin III (75-135) % Factor V Leiden Mutat (.) Sodium 135 L (136-145) mmol/L Potassium 3.6 (3.5-5.1) mmol/L Chloride 105 (98-107) mmol/L Carbon Dioxide 24.0 (21.0-32.0) mmol/L Anion Gap 6 (5-15) BUN 7 (7-18) mg/dL Creatinine 0.66 L (0.70-1.30) mg/dL Estim Creat Clear Calc 59.49 ml/min Est GFR (MDRD) Af Amer 152 (>60) mL/min Est GFR (MDRD) Non-Af 125 (>60) mL/min BUN/Creatinine Ratio 10.6 (10-20) RATIO Glucose 122 H (74-106) mg/dL Serum Osmolality (280-301) mOsm/KG Calcium 8.2 L (8.5-10.1) mg/dL Phosphorus 2.3 L (2.5-4.9) mg/dL Magnesium 1.9 (1.6-2.6) mg/dL Lipase 147 (73-393) U/L PSA Screen (0.00-4.00) ng/mL Vitamin B12 (211-911) pg/mL Cortisol (3.44-22.45) ug/dL Urine Color (Yellow) Urine Clarity (Clear) Urine pH (5.0 - 8.0) Ur Specific [place] (1.002-1.030) Urine Protein (Negative) mg/dl Urine Glucose (UA) (Normal) mg/dl Urine Ketones (Negative) mg/dl Urine Occult Blood (Negative) /ul Urine Nitrite (Negative) Urine Bilirubin (Negative) mg/dL Urine Urobilinogen (Normal) mg/dl Ur Leukocyte Esterase (Negative) /ul Urine RBC (0-5) /hpf Urine WBC (0-5) /hpf Ur Squamous Epith Cells (0-5) /hpf Ur Transition Epith Cell (0-5) /hpf Urine Bacteria (None Seen) /hpf Urine Mucus (<or=2+) /hpf Urine Osmolality (50 - ) mOsm/KG Ur Random Sodium (Not Establ.) mmol/L Rheumatoid Factor (<15) IU/mL WENDY Screen (Negative) LAYA-1 Antibody SS-A/Ro IgG Antibody SS-B/La IgG Antibody Sm ([place]ouard) Antibody TANK CREWMEMBER Antibody Scl-70 Scleroderma Ab Double Strand DNA Ab Centromere B Antibody Beta-2-GPI IgG Ab (0-20) Beta-2-GPI IgA Ab (0-25) Beta-2-GPI IgM Ab (0-32) Anti-Cardiolipin IgG Ab (0-14) GPL U/mL Anti-Cardiolipin IgM Ab (0-12) MPL U/mL Factor II DNA Analysis (.) POC Glucose 149 H (70-110) mg/dL 11/10/19 11/10/19 11/10/19 Range/Units 16:58 11:32 06:40 WBC (4.4-11.0) K/mm3 RBC (4.6-6.2) M/mm3 Hgb (13.0-16.5) g/dL Hct (40-54) % MCV (80-94) fL MCH (27.0-32.0) pg MCHC (32-36) g/dL RDW Std Deviation (35.1-43.9) fl RDW Coeff of Brunilda (11.6-14.6) % Plt Count (150-450) K/mm3 MPV (6.2-12.0) fl Immature Gran % (Auto) (0.0-0.9) % Neut % (Auto) (47-70) % Lymph % (Auto) (19-41) % [place] % (Auto) (0-10) % Eos % (Auto) (0-5) % Baso % (Auto) (0-1) % Absolute Neuts (auto) (2.0-7.7) X10^3/uL Absolute Lymphs (auto) (0.83-4.51) X10^3/uL Nucleated RBC % (0-5) % Protein C Antigen (60-150) % Prot C Funct Activity (73-180) % Antithrombin III Ag (72-124) % Func Antithrombin III (75-135) % Factor V Leiden Mutat (.) Sodium (136-145) mmol/L Potassium (3.5-5.1) mmol/L Chloride (98-107) mmol/L Carbon Dioxide (21.0-32.0) mmol/L Anion Gap (5-15) BUN (7-18) mg/dL Creatinine (0.70-1.30) mg/dL Estim Creat Clear Calc ml/min Est GFR (MDRD) Af Amer (>60) mL/min Est GFR (MDRD) Non-Af (>60) mL/min BUN/Creatinine Ratio (10-20) RATIO Glucose (74-106) mg/dL Serum Osmolality (280-301) mOsm/KG Calcium (8.5-10.1) mg/dL Phosphorus (2.5-4.9) mg/dL Magnesium (1.6-2.6) mg/dL Lipase (73-393) U/L PSA Screen (0.00-4.00) ng/mL Vitamin B12 (211-911) pg/mL Cortisol (3.44-22.45) ug/dL Urine Color (Yellow) Urine Clarity (Clear) Urine pH (5.0 - 8.0) Ur Specific [place] (1.002-1.030) Urine Protein (Negative) mg/dl Urine Glucose (UA) (Normal) mg/dl Urine Ketones (Negative) mg/dl Urine Occult Blood (Negative) /ul Urine Nitrite (Negative) Urine Bilirubin (Negative) mg/dL Urine Urobilinogen (Normal) mg/dl Ur Leukocyte Esterase (Negative) /ul Urine RBC (0-5) /hpf Urine WBC (0-5) /hpf Ur Squamous Epith Cells (0-5) /hpf Ur Transition Epith Cell (0-5) /hpf Urine Bacteria (None Seen) /hpf Urine Mucus (<or=2+) /hpf Urine Osmolality (50 - ) mOsm/KG Ur Random Sodium (Not Establ.) mmol/L Rheumatoid Factor (<15) IU/mL WENDY Screen (Negative) LAYA-1 Antibody SS-A/Ro IgG Antibody SS-B/La IgG Antibody Sm (Edouard) Antibody TANK CREWMEMBER Antibody Scl-70 Scleroderma Ab Double Strand DNA Ab Centromere B Antibody Beta-2-GPI IgG Ab (0-20) Beta-2-GPI IgA Ab (0-25) Beta-2-GPI IgM Ab (0-32) Anti-Cardiolipin IgG Ab (0-14) GPL U/mL Anti-Cardiolipin IgM Ab (0-12) MPL U/mL Factor II DNA Analysis (.) POC Glucose 204 H 135 H 140 H (70-110) mg/dL 11/09/19 11/09/19 11/09/19 Range/Units 21:09 17:15 11:06 WBC (4.4-11.0) K/mm3 RBC (4.6-6.2) M/mm3 Hgb (13.0-16.5) g/dL Hct (40-54) % MCV (80-94) fL MCH (27.0-32.0) pg MCHC (32-36) g/dL RDW Std Deviation (35.1-43.9) fl RDW Coeff of Brunilda (11.6-14.6) % Plt Count (150-450) K/mm3 MPV (6.2-12.0) fl Immature Gran % (Auto) (0.0-0.9) % Neut % (Auto) (47-70) % Lymph % (Auto) (19-41) % [place] % (Auto) (0-10) % Eos % (Auto) (0-5) % Baso % (Auto) (0-1) % Absolute Neuts (auto) (2.0-7.7) X10^3/uL Absolute Lymphs (auto) (0.83-4.51) X10^3/uL Nucleated RBC % (0-5) % Protein C Antigen (60-150) % Prot C Funct Activity (73-180) % Antithrombin III Ag (72-124) % Func Antithrombin III (75-135) % Factor V Leiden Mutat (.) Sodium (136-145) mmol/L Potassium (3.5-5.1) mmol/L Chloride (98-107) mmol/L Carbon Dioxide (21.0-32.0) mmol/L Anion Gap (5-15) BUN (7-18) mg/dL Creatinine (0.70-1.30) mg/dL Estim Creat Clear Calc ml/min Est GFR (MDRD) Af Amer (>60) mL/min Est GFR (MDRD) Non-Af (>60) mL/min BUN/Creatinine Ratio (10-20) RATIO Glucose (74-106) mg/dL Serum Osmolality (280-301) mOsm/KG Calcium (8.5-10.1) mg/dL Phosphorus (2.5-4.9) mg/dL Magnesium (1.6-2.6) mg/dL Lipase (73-393) U/L PSA Screen (0.00-4.00) ng/mL Vitamin B12 (211-911) pg/mL Cortisol (3.44-22.45) ug/dL Urine Color (Yellow) Urine Clarity (Clear) Urine pH (5.0 - 8.0) Ur Specific [place] (1.002-1.030) Urine Protein (Negative) mg/dl Urine Glucose (UA) (Normal) mg/dl Urine Ketones (Negative) mg/dl Urine Occult Blood (Negative) /ul Urine Nitrite (Negative) Urine Bilirubin (Negative) mg/dL Urine Urobilinogen (Normal) mg/dl Ur Leukocyte Esterase (Negative) /ul Urine RBC (0-5) /hpf Urine WBC (0-5) /hpf Ur Squamous Epith Cells (0-5) /hpf Ur Transition Epith Cell (0-5) /hpf Urine Bacteria (None Seen) /hpf Urine Mucus (<or=2+) /hpf Urine Osmolality (50 - ) mOsm/KG Ur Random Sodium (Not Establ.) mmol/L Rheumatoid Factor (<15) IU/mL WENDY Screen (Negative) LAYA-1 Antibody SS-A/Ro IgG Antibody SS-B/La IgG Antibody Sm (Edouard) Antibody TANK CREWMEMBER Antibody Scl-70 Scleroderma Ab Double Strand DNA Ab Centromere B Antibody Beta-2-GPI IgG Ab (0-20) Beta-2-GPI IgA Ab (0-25) Beta-2-GPI IgM Ab (0-32) Anti-Cardiolipin IgG Ab (0-14) GPL U/mL Anti-Cardiolipin IgM Ab (0-12) MPL U/mL Factor II DNA Analysis (.) POC Glucose 152 H 197 H 160 H (70-110) mg/dL 11/09/19 11/08/19 11/08/19 Range/Units 06:24 20:48 16:14 WBC (4.4-11.0) K/mm3 RBC (4.6-6.2) M/mm3 Hgb (13.0-16.5) g/dL Hct (40-54) % MCV (80-94) fL MCH (27.0-32.0) pg MCHC (32-36) g/dL RDW Std Deviation (35.1-43.9) fl RDW Coeff of Brunilda (11.6-14.6) % Plt Count (150-450) K/mm3 MPV (6.2-12.0) fl Immature Gran % (Auto) (0.0-0.9) % Neut % (Auto) (47-70) % Lymph % (Auto) (19-41) % [place] % (Auto) (0-10) % Eos % (Auto) (0-5) % Baso % (Auto) (0-1) % Absolute Neuts (auto) (2.0-7.7) X10^3/uL Absolute Lymphs (auto) (0.83-4.51) X10^3/uL Nucleated RBC % (0-5) % Protein C Antigen (60-150) % Prot C Funct Activity (73-180) % Antithrombin III Ag (72-124) % Func Antithrombin III (75-135) % Factor V Leiden Mutat (.) Sodium (136-145) mmol/L Potassium (3.5-5.1) mmol/L Chloride (98-107) mmol/L Carbon Dioxide (21.0-32.0) mmol/L Anion Gap (5-15) BUN (7-18) mg/dL Creatinine (0.70-1.30) mg/dL Estim Creat Clear Calc ml/min Est GFR (MDRD) Af Amer (>60) mL/min Est GFR (MDRD) Non-Af (>60) mL/min BUN/Creatinine Ratio (10-20) RATIO Glucose (74-106) mg/dL Serum Osmolality (280-301) mOsm/KG Calcium (8.5-10.1) mg/dL Phosphorus (2.5-4.9) mg/dL Magnesium (1.6-2.6) mg/dL Lipase (73-393) U/L PSA Screen (0.00-4.00) ng/mL Vitamin B12 (211-911) pg/mL Cortisol (3.44-22.45) ug/dL Urine Color (Yellow) Urine Clarity (Clear) Urine pH (5.0 - 8.0) Ur Specific [place] (1.002-1.030) Urine Protein (Negative) mg/dl Urine Glucose (UA) (Normal) mg/dl Urine Ketones (Negative) mg/dl Urine Occult Blood (Negative) /ul Urine Nitrite (Negative) Urine Bilirubin (Negative) mg/dL Urine Urobilinogen (Normal) mg/dl Ur Leukocyte Esterase (Negative) /ul Urine RBC (0-5) /hpf Urine WBC (0-5) /hpf Ur Squamous Epith Cells (0-5) /hpf Ur Transition Epith Cell (0-5) /hpf Urine Bacteria (None Seen) /hpf Urine Mucus (<or=2+) /hpf Urine Osmolality (50 - ) mOsm/KG Ur Random Sodium (Not Establ.) mmol/L Rheumatoid Factor (<15) IU/mL WENDY Screen (Negative) LAYA-1 Antibody SS-A/Ro IgG Antibody SS-B/La IgG Antibody Sm (Edouard) Antibody TANK CREWMEMBER Antibody Scl-70 Scleroderma Ab Double Strand DNA Ab Centromere B Antibody Beta-2-GPI IgG Ab (0-20) Beta-2-GPI IgA Ab (0-25) Beta-2-GPI IgM Ab (0-32) Anti-Cardiolipin IgG Ab (0-14) GPL U/mL Anti-Cardiolipin IgM Ab (0-12) MPL U/mL Factor II DNA Analysis (.) POC Glucose 122 H 141 H 128 H (70-110) mg/dL 11/08/19 11/08/19 11/08/19 Range/Units 12:11 09:10 09:10 WBC 8.0 (4.4-11.0) K/mm3 RBC 4.00 L (4.6-6.2) M/mm3 Hgb 11.4 L (13.0-16.5) g/dL Hct 35.0 L (40-54) % MCV 87.5 (80-94) fL MCH 28.5 (27.0-32.0) pg MCHC 32.6 (32-36) g/dL RDW Std Deviation 44.5 H (35.1-43.9) fl RDW Coeff of Brunilda 14.0 (11.6-14.6) % Plt Count 194 (150-450) K/mm3 MPV 8.5 (6.2-12.0) fl Immature Gran % (Auto) (0.0-0.9) % Neut % (Auto) (47-70) % Lymph % (Auto) (19-41) % [place] % (Auto) (0-10) % Eos % (Auto) (0-5) % Baso % (Auto) (0-1) % Absolute Neuts (auto) (2.0-7.7) X10^3/uL Absolute Lymphs (auto) (0.83-4.51) X10^3/uL Nucleated RBC % (0-5) % Protein C Antigen (60-150) % Prot C Funct Activity (73-180) % Antithrombin III Ag (72-124) % Func Antithrombin III (75-135) % Factor V Leiden Mutat (.) Sodium 136 (136-145) mmol/L Potassium 3.3 L (3.5-5.1) mmol/L Chloride 105 (98-107) mmol/L Carbon Dioxide 25.0 (21.0-32.0) mmol/L Anion Gap 6 (5-15) BUN 12 (7-18) mg/dL Creatinine 0.81 (0.70-1.30) mg/dL Estim Creat Clear Calc 73.45 ml/min Est GFR (MDRD) Af Amer 119 (>60) mL/min Est GFR (MDRD) Non-Af 99 (>60) mL/min BUN/Creatinine Ratio 14.8 (10-20) RATIO Glucose 176 H (74-106) mg/dL Serum Osmolality (280-301) mOsm/KG Calcium 8.5 (8.5-10.1) mg/dL Phosphorus 2.2 L (2.5-4.9) mg/dL Magnesium 1.2 L (1.6-2.6) mg/dL Lipase (73-393) U/L PSA Screen (0.00-4.00) ng/mL Vitamin B12 (211-911) pg/mL Cortisol (3.44-22.45) ug/dL Urine Color (Yellow) Urine Clarity (Clear) Urine pH (5.0 - 8.0) Ur Specific [place] (1.002-1.030) Urine Protein (Negative) mg/dl Urine Glucose (UA) (Normal) mg/dl Urine Ketones (Negative) mg/dl Urine Occult Blood (Negative) /ul Urine Nitrite (Negative) Urine Bilirubin (Negative) mg/dL Urine Urobilinogen (Normal) mg/dl Ur Leukocyte Esterase (Negative) /ul Urine RBC (0-5) /hpf Urine WBC (0-5) /hpf Ur Squamous Epith Cells (0-5) /hpf Ur Transition Epith Cell (0-5) /hpf Urine Bacteria (None Seen) /hpf Urine Mucus (<or=2+) /hpf Urine Osmolality (50 - ) mOsm/KG Ur Random Sodium (Not Establ.) mmol/L Rheumatoid Factor (<15) IU/mL WENDY Screen (Negative) LAYA-1 Antibody SS-A/Ro IgG Antibody SS-B/La IgG Antibody Sm (Edouard) Antibody TANK CREWMEMBER Antibody Scl-70 Scleroderma Ab Double Strand DNA Ab Centromere B Antibody Beta-2-GPI IgG Ab (0-20) Beta-2-GPI IgA Ab (0-25) Beta-2-GPI IgM Ab (0-32) Anti-Cardiolipin IgG Ab (0-14) GPL U/mL Anti-Cardiolipin IgM Ab (0-12) MPL U/mL Factor II DNA Analysis (.) POC Glucose 94 (70-110) mg/dL 11/08/19 11/07/19 11/07/19 Range/Units 06:04 22:01 16:39 WBC (4.4-11.0) K/mm3 RBC (4.6-6.2) M/mm3 Hgb (13.0-16.5) g/dL Hct (40-54) % MCV (80-94) fL MCH (27.0-32.0) pg MCHC (32-36) g/dL RDW Std Deviation (35.1-43.9) fl RDW Coeff of Brunilda (11.6-14.6) % Plt Count (150-450) K/mm3 MPV (6.2-12.0) fl Immature Gran % (Auto) (0.0-0.9) % Neut % (Auto) (47-70) % Lymph % (Auto) (19-41) % [place] % (Auto) (0-10) % Eos % (Auto) (0-5) % Baso % (Auto) (0-1) % Absolute Neuts (auto) (2.0-7.7) X10^3/uL Absolute Lymphs (auto) (0.83-4.51) X10^3/uL Nucleated RBC % (0-5) % Protein C Antigen (60-150) % Prot C Funct Activity (73-180) % Antithrombin III Ag (72-124) % Func Antithrombin III (75-135) % Factor V Leiden Mutat (.) Sodium (136-145) mmol/L Potassium (3.5-5.1) mmol/L Chloride (98-107) mmol/L Carbon Dioxide (21.0-32.0) mmol/L Anion Gap (5-15) BUN (7-18) mg/dL Creatinine (0.70-1.30) mg/dL Estim Creat Clear Calc ml/min Est GFR (MDRD) Af Amer (>60) mL/min Est GFR (MDRD) Non-Af (>60) mL/min BUN/Creatinine Ratio (10-20) RATIO Glucose (74-106) mg/dL Serum Osmolality (280-301) mOsm/KG Calcium (8.5-10.1) mg/dL Phosphorus (2.5-4.9) mg/dL Magnesium (1.6-2.6) mg/dL Lipase (73-393) U/L PSA Screen (0.00-4.00) ng/mL Vitamin B12 (211-911) pg/mL Cortisol (3.44-22.45) ug/dL Urine Color (Yellow) Urine Clarity (Clear) Urine pH (5.0 - 8.0) Ur Specific [place] (1.002-1.030) Urine Protein (Negative) mg/dl Urine Glucose (UA) (Normal) mg/dl Urine Ketones (Negative) mg/dl Urine Occult Blood (Negative) /ul Urine Nitrite (Negative) Urine Bilirubin (Negative) mg/dL Urine Urobilinogen (Normal) mg/dl Ur Leukocyte Esterase (Negative) /ul Urine RBC (0-5) /hpf Urine WBC (0-5) /hpf Ur Squamous Epith Cells (0-5) /hpf Ur Transition Epith Cell (0-5) /hpf Urine Bacteria (None Seen) /hpf Urine Mucus (<or=2+) /hpf Urine Osmolality (50 - ) mOsm/KG Ur Random Sodium (Not Establ.) mmol/L Rheumatoid Factor (<15) IU/mL WENDY Screen (Negative) LAYA-1 Antibody SS-A/Ro IgG Antibody SS-B/La IgG Antibody Sm (Edouard) Antibody TANK CREWMEMBER Antibody Scl-70 Scleroderma Ab Double Strand DNA Ab Centromere B Antibody Beta-2-GPI IgG Ab (0-20) Beta-2-GPI IgA Ab (0-25) Beta-2-GPI IgM Ab (0-32) Anti-Cardiolipin IgG Ab (0-14) GPL U/mL Anti-Cardiolipin IgM Ab (0-12) MPL U/mL Factor II DNA Analysis (.) POC Glucose 105 95 90 (70-110) mg/dL 11/07/19 11/07/19 11/06/19 Range/Units 11:59 06:57 22:15 WBC (4.4-11.0) K/mm3 RBC (4.6-6.2) M/mm3 Hgb 10.8 L (13.0-16.5) g/dL Hct 33.4 L (40-54) % MCV (80-94) fL MCH (27.0-32.0) pg MCHC (32-36) g/dL RDW Std Deviation (35.1-43.9) fl RDW Coeff of Brunilda (11.6-14.6) % Plt Count (150-450) K/mm3 MPV (6.2-12.0) fl Immature Gran % (Auto) (0.0-0.9) % Neut % (Auto) (47-70) % Lymph % (Auto) (19-41) % [place] % (Auto) (0-10) % Eos % (Auto) (0-5) % Baso % (Auto) (0-1) % Absolute Neuts (auto) (2.0-7.7) X10^3/uL Absolute Lymphs (auto) (0.83-4.51) X10^3/uL Nucleated RBC % (0-5) % Protein C Antigen (60-150) % Prot C Funct Activity (73-180) % Antithrombin III Ag (72-124) % Func Antithrombin III (75-135) % Factor V Leiden Mutat (.) Sodium (136-145) mmol/L Potassium (3.5-5.1) mmol/L Chloride (98-107) mmol/L Carbon Dioxide (21.0-32.0) mmol/L Anion Gap (5-15) BUN (7-18) mg/dL Creatinine (0.70-1.30) mg/dL Estim Creat Clear Calc ml/min Est GFR (MDRD) Af Amer (>60) mL/min Est GFR (MDRD) Non-Af (>60) mL/min BUN/Creatinine Ratio (10-20) RATIO Glucose (74-106) mg/dL Serum Osmolality (280-301) mOsm/KG Calcium (8.5-10.1) mg/dL Phosphorus (2.5-4.9) mg/dL Magnesium (1.6-2.6) mg/dL Lipase (73-393) U/L PSA Screen (0.00-4.00) ng/mL Vitamin B12 (211-911) pg/mL Cortisol (3.44-22.45) ug/dL Urine Color (Yellow) Urine Clarity (Clear) Urine pH (5.0 - 8.0) Ur Specific [place] (1.002-1.030) Urine Protein (Negative) mg/dl Urine Glucose (UA) (Normal) mg/dl Urine Ketones (Negative) mg/dl Urine Occult Blood (Negative) /ul Urine Nitrite (Negative) Urine Bilirubin (Negative) mg/dL Urine Urobilinogen (Normal) mg/dl Ur Leukocyte Esterase (Negative) /ul Urine RBC (0-5) /hpf Urine WBC (0-5) /hpf Ur Squamous Epith Cells (0-5) /hpf Ur Transition Epith Cell (0-5) /hpf Urine Bacteria (None Seen) /hpf Urine Mucus (<or=2+) /hpf Urine Osmolality (50 - ) mOsm/KG Ur Random Sodium (Not Establ.) mmol/L Rheumatoid Factor (<15) IU/mL WENDY Screen (Negative) LAYA-1 Antibody SS-A/Ro IgG Antibody SS-B/La IgG Antibody Sm (Edouard) Antibody TANK CREWMEMBER Antibody Scl-70 Scleroderma Ab Double Strand DNA Ab Centromere B Antibody Beta-2-GPI IgG Ab (0-20) Beta-2-GPI IgA Ab (0-25) Beta-2-GPI IgM Ab (0-32) Anti-Cardiolipin IgG Ab (0-14) GPL U/mL Anti-Cardiolipin IgM Ab (0-12) MPL U/mL Factor II DNA Analysis (.) POC Glucose 128 H 85 (70-110) mg/dL 11/06/19 11/06/19 11/06/19 Range/Units 21:49 16:37 14:10 WBC (4.4-11.0) K/mm3 RBC (4.6-6.2) M/mm3 Hgb 11.3 L (13.0-16.5) g/dL Hct 33.7 L (40-54) % MCV (80-94) fL MCH (27.0-32.0) pg MCHC (32-36) g/dL RDW Std Deviation (35.1-43.9) fl RDW Coeff of Brunilda (11.6-14.6) % Plt Count (150-450) K/mm3 MPV (6.2-12.0) fl Immature Gran % (Auto) (0.0-0.9) % Neut % (Auto) (47-70) % Lymph % (Auto) (19-41) % [place] % (Auto) (0-10) % Eos % (Auto) (0-5) % Baso % (Auto) (0-1) % Absolute Neuts (auto) (2.0-7.7) X10^3/uL Absolute Lymphs (auto) (0.83-4.51) X10^3/uL Nucleated RBC % (0-5) % Protein C Antigen (60-150) % Prot C Funct Activity (73-180) % Antithrombin III Ag (72-124) % Func Antithrombin III (75-135) % Factor V Leiden Mutat (.) Sodium (136-145) mmol/L Potassium (3.5-5.1) mmol/L Chloride (98-107) mmol/L Carbon Dioxide (21.0-32.0) mmol/L Anion Gap (5-15) BUN (7-18) mg/dL Creatinine (0.70-1.30) mg/dL Estim Creat Clear Calc ml/min Est GFR (MDRD) Af Amer (>60) mL/min Est GFR (MDRD) Non-Af (>60) mL/min BUN/Creatinine Ratio (10-20) RATIO Glucose (74-106) mg/dL Serum Osmolality (280-301) mOsm/KG Calcium (8.5-10.1) mg/dL Phosphorus (2.5-4.9) mg/dL Magnesium (1.6-2.6) mg/dL Lipase (73-393) U/L PSA Screen (0.00-4.00) ng/mL Vitamin B12 (211-911) pg/mL Cortisol (3.44-22.45) ug/dL Urine Color (Yellow) Urine Clarity (Clear) Urine pH (5.0 - 8.0) Ur Specific [place] (1.002-1.030) Urine Protein (Negative) mg/dl Urine Glucose (UA) (Normal) mg/dl Urine Ketones (Negative) mg/dl Urine Occult Blood (Negative) /ul Urine Nitrite (Negative) Urine Bilirubin (Negative) mg/dL Urine Urobilinogen (Normal) mg/dl Ur Leukocyte Esterase (Negative) /ul Urine RBC (0-5) /hpf Urine WBC (0-5) /hpf Ur Squamous Epith Cells (0-5) /hpf Ur Transition Epith Cell (0-5) /hpf Urine Bacteria (None Seen) /hpf Urine Mucus (<or=2+) /hpf Urine Osmolality (50 - ) mOsm/KG Ur Random Sodium (Not Establ.) mmol/L Rheumatoid Factor (<15) IU/mL WENDY Screen (Negative) LAYA-1 Antibody SS-A/Ro IgG Antibody SS-B/La IgG Antibody Sm (Edouard) Antibody TANK CREWMEMBER Antibody Scl-70 Scleroderma Ab Double Strand DNA Ab Centromere B Antibody Beta-2-GPI IgG Ab (0-20) Beta-2-GPI IgA Ab (0-25) Beta-2-GPI IgM Ab (0-32) Anti-Cardiolipin IgG Ab (0-14) GPL U/mL Anti-Cardiolipin IgM Ab (0-12) MPL U/mL Factor II DNA Analysis (.) POC Glucose 93 151 H (70-110) mg/dL 11/06/19 11/06/19 11/06/19 Range/Units 11:59 06:25 04:30 WBC (4.4-11.0) K/mm3 RBC (4.6-6.2) M/mm3 Hgb 13.2 (13.0-16.5) g/dL Hct 40.2 (40-54) % MCV (80-94) fL MCH (27.0-32.0) pg MCHC (32-36) g/dL RDW Std Deviation (35.1-43.9) fl RDW Coeff of Brunilda (11.6-14.6) % Plt Count (150-450) K/mm3 MPV (6.2-12.0) fl Immature Gran % (Auto) (0.0-0.9) % Neut % (Auto) (47-70) % Lymph % (Auto) (19-41) % [place] % (Auto) (0-10) % Eos % (Auto) (0-5) % Baso % (Auto) (0-1) % Absolute Neuts (auto) (2.0-7.7) X10^3/uL Absolute Lymphs (auto) (0.83-4.51) X10^3/uL Nucleated RBC % (0-5) % Protein C Antigen (60-150) % Prot C Funct Activity (73-180) % Antithrombin III Ag (72-124) % Func Antithrombin III (75-135) % Factor V Leiden Mutat (.) Sodium (136-145) mmol/L Potassium (3.5-5.1) mmol/L Chloride (98-107) mmol/L Carbon Dioxide (21.0-32.0) mmol/L Anion Gap (5-15) BUN (7-18) mg/dL Creatinine (0.70-1.30) mg/dL Estim Creat Clear Calc ml/min Est GFR (MDRD) Af Amer (>60) mL/min Est GFR (MDRD) Non-Af (>60) mL/min BUN/Creatinine Ratio (10-20) RATIO Glucose (74-106) mg/dL Serum Osmolality (280-301) mOsm/KG Calcium (8.5-10.1) mg/dL Phosphorus (2.5-4.9) mg/dL Magnesium (1.6-2.6) mg/dL Lipase (73-393) U/L PSA Screen (0.00-4.00) ng/mL Vitamin B12 (211-911) pg/mL Cortisol (3.44-22.45) ug/dL Urine Color (Yellow) Urine Clarity (Clear) Urine pH (5.0 - 8.0) Ur Specific [place] (1.002-1.030) Urine Protein (Negative) mg/dl Urine Glucose (UA) (Normal) mg/dl Urine Ketones (Negative) mg/dl Urine Occult Blood (Negative) /ul Urine Nitrite (Negative) Urine Bilirubin (Negative) mg/dL Urine Urobilinogen (Normal) mg/dl Ur Leukocyte Esterase (Negative) /ul Urine RBC (0-5) /hpf Urine WBC (0-5) /hpf Ur Squamous Epith Cells (0-5) /hpf Ur Transition Epith Cell (0-5) /hpf Urine Bacteria (None Seen) /hpf Urine Mucus (<or=2+) /hpf Urine Osmolality (50 - ) mOsm/KG Ur Random Sodium (Not Establ.) mmol/L Rheumatoid Factor (<15) IU/mL WENDY Screen (Negative) LAYA-1 Antibody SS-A/Ro IgG Antibody SS-B/La IgG Antibody Sm (Edouard) Antibody TANK CREWMEMBER Antibody Scl-70 Scleroderma Ab Double Strand DNA Ab Centromere B Antibody Beta-2-GPI IgG Ab (0-20) Beta-2-GPI IgA Ab (0-25) Beta-2-GPI IgM Ab (0-32) Anti-Cardiolipin IgG Ab (0-14) GPL U/mL Anti-Cardiolipin IgM Ab (0-12) MPL U/mL Factor II DNA Analysis (.) POC Glucose 129 H 139 H (70-110) mg/dL 11/06/19 11/05/19 11/05/19 Range/Units 03:33 21:30 16:20 WBC (4.4-11.0) K/mm3 RBC (4.6-6.2) M/mm3 Hgb (13.0-16.5) g/dL Hct (40-54) % MCV (80-94) fL MCH (27.0-32.0) pg MCHC (32-36) g/dL RDW Std Deviation (35.1-43.9) fl RDW Coeff of Brunilda (11.6-14.6) % Plt Count (150-450) K/mm3 MPV (6.2-12.0) fl Immature Gran % (Auto) (0.0-0.9) % Neut % (Auto) (47-70) % Lymph % (Auto) (19-41) % [place] % (Auto) (0-10) % Eos % (Auto) (0-5) % Baso % (Auto) (0-1) % Absolute Neuts (auto) (2.0-7.7) X10^3/uL Absolute Lymphs (auto) (0.83-4.51) X10^3/uL Nucleated RBC % (0-5) % Protein C Antigen (60-150) % Prot C Funct Activity (73-180) % Antithrombin III Ag (72-124) % Func Antithrombin III (75-135) % Factor V Leiden Mutat (.) Sodium (136-145) mmol/L Potassium (3.5-5.1) mmol/L Chloride (98-107) mmol/L Carbon Dioxide (21.0-32.0) mmol/L Anion Gap (5-15) BUN (7-18) mg/dL Creatinine (0.70-1.30) mg/dL Estim Creat Clear Calc ml/min Est GFR (MDRD) Af Amer (>60) mL/min Est GFR (MDRD) Non-Af (>60) mL/min BUN/Creatinine Ratio (10-20) RATIO Glucose (74-106) mg/dL Serum Osmolality (280-301) mOsm/KG Calcium (8.5-10.1) mg/dL Phosphorus (2.5-4.9) mg/dL Magnesium (1.6-2.6) mg/dL Lipase (73-393) U/L PSA Screen (0.00-4.00) ng/mL Vitamin B12 (211-911) pg/mL Cortisol (3.44-22.45) ug/dL Urine Color (Yellow) Urine Clarity (Clear) Urine pH (5.0 - 8.0) Ur Specific [place] (1.002-1.030) Urine Protein (Negative) mg/dl Urine Glucose (UA) (Normal) mg/dl Urine Ketones (Negative) mg/dl Urine Occult Blood (Negative) /ul Urine Nitrite (Negative) Urine Bilirubin (Negative) mg/dL Urine Urobilinogen (Normal) mg/dl Ur Leukocyte Esterase (Negative) /ul Urine RBC (0-5) /hpf Urine WBC (0-5) /hpf Ur Squamous Epith Cells (0-5) /hpf Ur Transition Epith Cell (0-5) /hpf Urine Bacteria (None Seen) /hpf Urine Mucus (<or=2+) /hpf Urine Osmolality (50 - ) mOsm/KG Ur Random Sodium (Not Establ.) mmol/L Rheumatoid Factor (<15) IU/mL WENDY Screen (Negative) LAYA-1 Antibody SS-A/Ro IgG Antibody SS-B/La IgG Antibody Sm (Edouard) Antibody TANK CREWMEMBER Antibody Scl-70 Scleroderma Ab Double Strand DNA Ab Centromere B Antibody Beta-2-GPI IgG Ab (0-20) Beta-2-GPI IgA Ab (0-25) Beta-2-GPI IgM Ab (0-32) Anti-Cardiolipin IgG Ab (0-14) GPL U/mL Anti-Cardiolipin IgM Ab (0-12) MPL U/mL Factor II DNA Analysis (.) POC Glucose 157 H 73 95 (70-110) mg/dL 11/05/19 11/05/19 11/05/19 Range/Units 12:20 11:54 11:38 WBC (4.4-11.0) K/mm3 RBC (4.6-6.2) M/mm3 Hgb (13.0-16.5) g/dL Hct (40-54) % MCV (80-94) fL MCH (27.0-32.0) pg MCHC (32-36) g/dL RDW Std Deviation (35.1-43.9) fl RDW Coeff of Brunilda (11.6-14.6) % Plt Count (150-450) K/mm3 MPV (6.2-12.0) fl Immature Gran % (Auto) (0.0-0.9) % Neut % (Auto) (47-70) % Lymph % (Auto) (19-41) % [place] % (Auto) (0-10) % Eos % (Auto) (0-5) % Baso % (Auto) (0-1) % Absolute Neuts (auto) (2.0-7.7) X10^3/uL Absolute Lymphs (auto) (0.83-4.51) X10^3/uL Nucleated RBC % (0-5) % Protein C Antigen (60-150) % Prot C Funct Activity (73-180) % Antithrombin III Ag (72-124) % Func Antithrombin III (75-135) % Factor V Leiden Mutat (.) Sodium (136-145) mmol/L Potassium (3.5-5.1) mmol/L Chloride (98-107) mmol/L Carbon Dioxide (21.0-32.0) mmol/L Anion Gap (5-15) BUN (7-18) mg/dL Creatinine (0.70-1.30) mg/dL Estim Creat Clear Calc ml/min Est GFR (MDRD) Af Amer (>60) mL/min Est GFR (MDRD) Non-Af (>60) mL/min BUN/Creatinine Ratio (10-20) RATIO Glucose (74-106) mg/dL Serum Osmolality (280-301) mOsm/KG Calcium (8.5-10.1) mg/dL Phosphorus (2.5-4.9) mg/dL Magnesium (1.6-2.6) mg/dL Lipase (73-393) U/L PSA Screen (0.00-4.00) ng/mL Vitamin B12 (211-911) pg/mL Cortisol (3.44-22.45) ug/dL Urine Color (Yellow) Urine Clarity (Clear) Urine pH (5.0 - 8.0) Ur Specific [place] (1.002-1.030) Urine Protein (Negative) mg/dl Urine Glucose (UA) (Normal) mg/dl Urine Ketones (Negative) mg/dl Urine Occult Blood (Negative) /ul Urine Nitrite (Negative) Urine Bilirubin (Negative) mg/dL Urine Urobilinogen (Normal) mg/dl Ur Leukocyte Esterase (Negative) /ul Urine RBC (0-5) /hpf Urine WBC (0-5) /hpf Ur Squamous Epith Cells (0-5) /hpf Ur Transition Epith Cell (0-5) /hpf Urine Bacteria (None Seen) /hpf Urine Mucus (<or=2+) /hpf Urine Osmolality (50 - ) mOsm/KG Ur Random Sodium (Not Establ.) mmol/L Rheumatoid Factor (<15) IU/mL WENDY Screen (Negative) LAYA-1 Antibody SS-A/Ro IgG Antibody SS-B/La IgG Antibody Sm (Edouard) Antibody TANK CREWMEMBER Antibody Scl-70 Scleroderma Ab Double Strand DNA Ab Centromere B Antibody Beta-2-GPI IgG Ab (0-20) Beta-2-GPI IgA Ab (0-25) Beta-2-GPI IgM Ab (0-32) Anti-Cardiolipin IgG Ab (0-14) GPL U/mL Anti-Cardiolipin IgM Ab (0-12) MPL U/mL Factor II DNA Analysis (.) POC Glucose 128 H 80 42 L* (70-110) mg/dL 11/05/19 11/05/19 11/05/19 Range/Units 11:22 06:15 06:00 WBC (4.4-11.0) K/mm3 RBC (4.6-6.2) M/mm3 Hgb (13.0-16.5) g/dL Hct (40-54) % MCV (80-94) fL MCH (27.0-32.0) pg MCHC (32-36) g/dL RDW Std Deviation (35.1-43.9) fl RDW Coeff of Brunilda (11.6-14.6) % Plt Count (150-450) K/mm3 MPV (6.2-12.0) fl Immature Gran % (Auto) (0.0-0.9) % Neut % (Auto) (47-70) % Lymph % (Auto) (19-41) % [place] % (Auto) (0-10) % Eos % (Auto) (0-5) % Baso % (Auto) (0-1) % Absolute Neuts (auto) (2.0-7.7) X10^3/uL Absolute Lymphs (auto) (0.83-4.51) X10^3/uL Nucleated RBC % (0-5) % Protein C Antigen (60-150) % Prot C Funct Activity (73-180) % Antithrombin III Ag (72-124) % Func Antithrombin III (75-135) % Factor V Leiden Mutat (.) Sodium (136-145) mmol/L Potassium (3.5-5.1) mmol/L Chloride (98-107) mmol/L Carbon Dioxide (21.0-32.0) mmol/L Anion Gap (5-15) BUN (7-18) mg/dL Creatinine (0.70-1.30) mg/dL Estim Creat Clear Calc ml/min Est GFR (MDRD) Af Amer (>60) mL/min Est GFR (MDRD) Non-Af (>60) mL/min BUN/Creatinine Ratio (10-20) RATIO Glucose (74-106) mg/dL Serum Osmolality (280-301) mOsm/KG Calcium (8.5-10.1) mg/dL Phosphorus (2.5-4.9) mg/dL Magnesium (1.6-2.6) mg/dL Lipase (73-393) U/L PSA Screen 3.47 (0.00-4.00) ng/mL Vitamin B12 (211-911) pg/mL Cortisol (3.44-22.45) ug/dL Urine Color (Yellow) Urine Clarity (Clear) Urine pH (5.0 - 8.0) Ur Specific [place] (1.002-1.030) Urine Protein (Negative) mg/dl Urine Glucose (UA) (Normal) mg/dl Urine Ketones (Negative) mg/dl Urine Occult Blood (Negative) /ul Urine Nitrite (Negative) Urine Bilirubin (Negative) mg/dL Urine Urobilinogen (Normal) mg/dl Ur Leukocyte Esterase (Negative) /ul Urine RBC (0-5) /hpf Urine WBC (0-5) /hpf Ur Squamous Epith Cells (0-5) /hpf Ur Transition Epith Cell (0-5) /hpf Urine Bacteria (None Seen) /hpf Urine Mucus (<or=2+) /hpf Urine Osmolality (50 - ) mOsm/KG Ur Random Sodium (Not Establ.) mmol/L Rheumatoid Factor (<15) IU/mL WENDY Screen (Negative) LAYA-1 Antibody SS-A/Ro IgG Antibody SS-B/La IgG Antibody Sm (Edouard) Antibody TANK CREWMEMBER Antibody Scl-70 Scleroderma Ab Double Strand DNA Ab Centromere B Antibody Beta-2-GPI IgG Ab (0-20) Beta-2-GPI IgA Ab (0-25) Beta-2-GPI IgM Ab (0-32) Anti-Cardiolipin IgG Ab (0-14) GPL U/mL Anti-Cardiolipin IgM Ab (0-12) MPL U/mL Factor II DNA Analysis (.) POC Glucose 56 L 76 (70-110) mg/dL 11/05/19 11/05/19 11/05/19 Range/Units 06:00 06:00 06:00 WBC (4.4-11.0) K/mm3 RBC (4.6-6.2) M/mm3 Hgb (13.0-16.5) g/dL Hct (40-54) % MCV (80-94) fL MCH (27.0-32.0) pg MCHC (32-36) g/dL RDW Std Deviation (35.1-43.9) fl RDW Coeff of Brunilda (11.6-14.6) % Plt Count (150-450) K/mm3 MPV (6.2-12.0) fl Immature Gran % (Auto) (0.0-0.9) % Neut % (Auto) (47-70) % Lymph % (Auto) (19-41) % [place] % (Auto) (0-10) % Eos % (Auto) (0-5) % Baso % (Auto) (0-1) % Absolute Neuts (auto) (2.0-7.7) X10^3/uL Absolute Lymphs (auto) (0.83-4.51) X10^3/uL Nucleated RBC % (0-5) % Protein C Antigen 95 (60-150) % Prot C Funct Activity 124 (73-180) % Antithrombin III Ag 98 (72-124) % Func Antithrombin III 101 (75-135) % Factor V Leiden Mutat Comment (.) Sodium (136-145) mmol/L Potassium (3.5-5.1) mmol/L Chloride (98-107) mmol/L Carbon Dioxide (21.0-32.0) mmol/L Anion Gap (5-15) BUN (7-18) mg/dL Creatinine (0.70-1.30) mg/dL Estim Creat Clear Calc ml/min Est GFR (MDRD) Af Amer (>60) mL/min Est GFR (MDRD) Non-Af (>60) mL/min BUN/Creatinine Ratio (10-20) RATIO Glucose (74-106) mg/dL Serum Osmolality (280-301) mOsm/KG Calcium (8.5-10.1) mg/dL Phosphorus (2.5-4.9) mg/dL Magnesium (1.6-2.6) mg/dL Lipase (73-393) U/L PSA Screen (0.00-4.00) ng/mL Vitamin B12 (211-911) pg/mL Cortisol 10.30 (3.44-22.45) ug/dL Urine Color (Yellow) Urine Clarity (Clear) Urine pH (5.0 - 8.0) Ur Specific [place] (1.002-1.030) Urine Protein (Negative) mg/dl Urine Glucose (UA) (Normal) mg/dl Urine Ketones (Negative) mg/dl Urine Occult Blood (Negative) /ul Urine Nitrite (Negative) Urine Bilirubin (Negative) mg/dL Urine Urobilinogen (Normal) mg/dl Ur Leukocyte Esterase (Negative) /ul Urine RBC (0-5) /hpf Urine WBC (0-5) /hpf Ur Squamous Epith Cells (0-5) /hpf Ur Transition Epith Cell (0-5) /hpf Urine Bacteria (None Seen) /hpf Urine Mucus (<or=2+) /hpf Urine Osmolality (50 - ) mOsm/KG Ur Random Sodium (Not Establ.) mmol/L Rheumatoid Factor (<15) IU/mL WENDY Screen (Negative) LAYA-1 Antibody SS-A/Ro IgG Antibody SS-B/La IgG Antibody Sm (Edouard) Antibody TANK CREWMEMBER Antibody Scl-70 Scleroderma Ab Double Strand DNA Ab Centromere B Antibody Beta-2-GPI IgG Ab 27 H (0-20) Beta-2-GPI IgA Ab 83 H (0-25) Beta-2-GPI IgM Ab <9 (0-32) Anti-Cardiolipin IgG Ab < 9 (0-14) GPL U/mL Anti-Cardiolipin IgM Ab < 9 (0-12) MPL U/mL Factor II DNA Analysis Comment (.) POC Glucose (70-110) mg/dL 11/04/19 11/04/19 11/04/19 Range/Units 22:05 17:04 17:00 WBC (4.4-11.0) K/mm3 RBC (4.6-6.2) M/mm3 Hgb (13.0-16.5) g/dL Hct (40-54) % MCV (80-94) fL MCH (27.0-32.0) pg MCHC (32-36) g/dL RDW Std Deviation (35.1-43.9) fl RDW Coeff of Brunilda (11.6-14.6) % Plt Count (150-450) K/mm3 MPV (6.2-12.0) fl Immature Gran % (Auto) (0.0-0.9) % Neut % (Auto) (47-70) % Lymph % (Auto) (19-41) % [place] % (Auto) (0-10) % Eos % (Auto) (0-5) % Baso % (Auto) (0-1) % Absolute Neuts (auto) (2.0-7.7) X10^3/uL Absolute Lymphs (auto) (0.83-4.51) X10^3/uL Nucleated RBC % (0-5) % Protein C Antigen (60-150) % Prot C Funct Activity (73-180) % Antithrombin III Ag (72-124) % Func Antithrombin III (75-135) % Factor V Leiden Mutat (.) Sodium (136-145) mmol/L Potassium (3.5-5.1) mmol/L Chloride (98-107) mmol/L Carbon Dioxide (21.0-32.0) mmol/L Anion Gap (5-15) BUN (7-18) mg/dL Creatinine (0.70-1.30) mg/dL Estim Creat Clear Calc ml/min Est GFR (MDRD) Af Amer (>60) mL/min Est GFR (MDRD) Non-Af (>60) mL/min BUN/Creatinine Ratio (10-20) RATIO Glucose (74-106) mg/dL Serum Osmolality (280-301) mOsm/KG Calcium (8.5-10.1) mg/dL Phosphorus (2.5-4.9) mg/dL Magnesium (1.6-2.6) mg/dL Lipase (73-393) U/L PSA Screen (0.00-4.00) ng/mL Vitamin B12 (211-911) pg/mL Cortisol (3.44-22.45) ug/dL Urine Color Yellow (Yellow) Urine Clarity Sl. Cloudy (Clear) Urine pH 6.5 (5.0 - 8.0) Ur Specific [place] 1.015 (1.002-1.030) Urine Protein 15 H (Negative) mg/dl Urine Glucose (UA) Normal (Normal) mg/dl Urine Ketones 5 H (Negative) mg/dl Urine Occult Blood 50 H (Negative) /ul Urine Nitrite Negative (Negative) Urine Bilirubin Negative (Negative) mg/dL Urine Urobilinogen 4 H (Normal) mg/dl Ur Leukocyte Esterase Negative (Negative) /ul Urine RBC 5-10 SEEN (0-5) /hpf Urine WBC 0-5 SEEN (0-5) /hpf Ur Squamous Epith Cells 0 SEEN (0-5) /hpf Ur Transition Epith Cell 0-5 SEEN (0-5) /hpf Urine Bacteria 0 SEEN (None Seen) /hpf Urine Mucus 1+ (<or=2+) /hpf Urine Osmolality (50 - ) mOsm/KG Ur Random Sodium (Not Establ.) mmol/L Rheumatoid Factor (<15) IU/mL WENDY Screen (Negative) LAYA-1 Antibody SS-A/Ro IgG Antibody SS-B/La IgG Antibody Sm (Edouard) Antibody TANK CREWMEMBER Antibody Scl-70 Scleroderma Ab Double Strand DNA Ab Centromere B Antibody Beta-2-GPI IgG Ab (0-20) Beta-2-GPI IgA Ab (0-25) Beta-2-GPI IgM Ab (0-32) Anti-Cardiolipin IgG Ab (0-14) GPL U/mL Anti-Cardiolipin IgM Ab (0-12) MPL U/mL Factor II DNA Analysis (.) POC Glucose 97 79 (70-110) mg/dL 11/04/19 11/04/19 11/04/19 Range/Units 16:35 16:35 15:35 WBC (4.4-11.0) K/mm3 RBC (4.6-6.2) M/mm3 Hgb (13.0-16.5) g/dL Hct (40-54) % MCV (80-94) fL MCH (27.0-32.0) pg MCHC (32-36) g/dL RDW Std Deviation (35.1-43.9) fl RDW Coeff of Brunilda (11.6-14.6) % Plt Count (150-450) K/mm3 MPV (6.2-12.0) fl Immature Gran % (Auto) (0.0-0.9) % Neut % (Auto) (47-70) % Lymph % (Auto) (19-41) % Surry % (Auto) (0-10) % Eos % (Auto) (0-5) % Baso % (Auto) (0-1) % Absolute Neuts (auto) (2.0-7.7) X10^3/uL Absolute Lymphs (auto) (0.83-4.51) X10^3/uL Nucleated RBC % (0-5) % Protein C Antigen (60-150) % Prot C Funct Activity (73-180) % Antithrombin III Ag (72-124) % Func Antithrombin III (75-135) % Factor V Leiden Mutat (.) Sodium (136-145) mmol/L Potassium (3.5-5.1) mmol/L Chloride (98-107) mmol/L Carbon Dioxide (21.0-32.0) mmol/L Anion Gap (5-15) BUN (7-18) mg/dL Creatinine (0.70-1.30) mg/dL Estim Creat Clear Calc ml/min Est GFR (MDRD) Af Amer (>60) mL/min Est GFR (MDRD) Non-Af (>60) mL/min BUN/Creatinine Ratio (10-20) RATIO Glucose (74-106) mg/dL Serum Osmolality (280-301) mOsm/KG Calcium (8.5-10.1) mg/dL Phosphorus (2.5-4.9) mg/dL Magnesium (1.6-2.6) mg/dL Lipase (73-393) U/L PSA Screen (0.00-4.00) ng/mL Vitamin B12 443 (211-911) pg/mL Cortisol (3.44-22.45) ug/dL Urine Color (Yellow) Urine Clarity (Clear) Urine pH (5.0 - 8.0) Ur Specific [place] (1.002-1.030) Urine Protein (Negative) mg/dl Urine Glucose (UA) (Normal) mg/dl Urine Ketones (Negative) mg/dl Urine Occult Blood (Negative) /ul Urine Nitrite (Negative) Urine Bilirubin (Negative) mg/dL Urine Urobilinogen (Normal) mg/dl Ur Leukocyte Esterase (Negative) /ul Urine RBC (0-5) /hpf Urine WBC (0-5) /hpf Ur Squamous Epith Cells (0-5) /hpf Ur Transition Epith Cell (0-5) /hpf Urine Bacteria (None Seen) /hpf Urine Mucus (<or=2+) /hpf Urine Osmolality 700 (50 - ) mOsm/KG Ur Random Sodium 208 (Not Establ.) mmol/L Rheumatoid Factor (<15) IU/mL WENDY Screen (Negative) LAYA-1 Antibody SS-A/Ro IgG Antibody SS-B/La IgG Antibody Sm (Edouard) Antibody TANK CREWMEMBER Antibody Scl-70 Scleroderma Ab Double Strand DNA Ab Centromere B Antibody Beta-2-GPI IgG Ab (0-20) Beta-2-GPI IgA Ab (0-25) Beta-2-GPI IgM Ab (0-32) Anti-Cardiolipin IgG Ab (0-14) GPL U/mL Anti-Cardiolipin IgM Ab (0-12) MPL U/mL Factor II DNA Analysis (.) POC Glucose (70-110) mg/dL 11/04/19 11/04/19 11/04/19 Range/Units 15:35 15:35 15:35 WBC (4.4-11.0) K/mm3 RBC (4.6-6.2) M/mm3 Hgb (13.0-16.5) g/dL Hct (40-54) % MCV (80-94) fL MCH (27.0-32.0) pg MCHC (32-36) g/dL RDW Std Deviation (35.1-43.9) fl RDW Coeff of Brunilda (11.6-14.6) % Plt Count (150-450) K/mm3 MPV (6.2-12.0) fl Immature Gran % (Auto) (0.0-0.9) % Neut % (Auto) (47-70) % Lymph % (Auto) (19-41) % Surry % (Auto) (0-10) % Eos % (Auto) (0-5) % Baso % (Auto) (0-1) % Absolute Neuts (auto) (2.0-7.7) X10^3/uL Absolute Lymphs (auto) (0.83-4.51) X10^3/uL Nucleated RBC % (0-5) % Protein C Antigen (60-150) % Prot C Funct Activity (73-180) % Antithrombin III Ag (72-124) % Func Antithrombin III (75-135) % Factor V Leiden Mutat (.) Sodium (136-145) mmol/L Potassium (3.5-5.1) mmol/L Chloride (98-107) mmol/L Carbon Dioxide (21.0-32.0) mmol/L Anion Gap (5-15) BUN (7-18) mg/dL Creatinine (0.70-1.30) mg/dL Estim Creat Clear Calc ml/min Est GFR (MDRD) Af Amer (>60) mL/min Est GFR (MDRD) Non-Af (>60) mL/min BUN/Creatinine Ratio (10-20) RATIO Glucose (74-106) mg/dL Serum Osmolality 267 L (280-301) mOsm/KG Calcium (8.5-10.1) mg/dL Phosphorus (2.5-4.9) mg/dL Magnesium (1.6-2.6) mg/dL Lipase (73-393) U/L PSA Screen (0.00-4.00) ng/mL Vitamin B12 (211-911) pg/mL Cortisol (3.44-22.45) ug/dL Urine Color (Yellow) Urine Clarity (Clear) Urine pH (5.0 - 8.0) Ur Specific [place] (1.002-1.030) Urine Protein (Negative) mg/dl Urine Glucose (UA) (Normal) mg/dl Urine Ketones (Negative) mg/dl Urine Occult Blood (Negative) /ul Urine Nitrite (Negative) Urine Bilirubin (Negative) mg/dL Urine Urobilinogen (Normal) mg/dl Ur Leukocyte Esterase (Negative) /ul Urine RBC (0-5) /hpf Urine WBC (0-5) /hpf Ur Squamous Epith Cells (0-5) /hpf Ur Transition Epith Cell (0-5) /hpf Urine Bacteria (None Seen) /hpf Urine Mucus (<or=2+) /hpf Urine Osmolality (50 - ) mOsm/KG Ur Random Sodium (Not Establ.) mmol/L Rheumatoid Factor < 10.0 (<15) IU/mL WENDY Screen Negative (Negative) LAYA-1 Antibody Not Reportable SS-A/Ro IgG Antibody Not Reportable SS-B/La IgG Antibody Not Reportable Sm (Edouard) Antibody Not Reportable TANK CREWMEMBER Antibody Not Reportable Scl-70 Scleroderma Ab Not Reportable Double Strand DNA Ab Not Reportable Centromere B Antibody Not Reportable Beta-2-GPI IgG Ab (0-20) Beta-2-GPI IgA Ab (0-25) Beta-2-GPI IgM Ab (0-32) Anti-Cardiolipin IgG Ab (0-14) GPL U/mL Anti-Cardiolipin IgM Ab (0-12) MPL U/mL Factor II DNA Analysis (.) POC Glucose (70-110) mg/dL 11/04/19 11/04/19 11/03/19 Range/Units 11:48 06:47 21:29 WBC (4.4-11.0) K/mm3 RBC (4.6-6.2) M/mm3 Hgb (13.0-16.5) g/dL Hct (40-54) % MCV (80-94) fL MCH (27.0-32.0) pg MCHC (32-36) g/dL RDW Std Deviation (35.1-43.9) fl RDW Coeff of Brunilda (11.6-14.6) % Plt Count (150-450) K/mm3 MPV (6.2-12.0) fl Immature Gran % (Auto) (0.0-0.9) % Neut % (Auto) (47-70) % Lymph % (Auto) (19-41) % Surry % (Auto) (0-10) % Eos % (Auto) (0-5) % Baso % (Auto) (0-1) % Absolute Neuts (auto) (2.0-7.7) X10^3/uL Absolute Lymphs (auto) (0.83-4.51) X10^3/uL Nucleated RBC % (0-5) % Protein C Antigen (60-150) % Prot C Funct Activity (73-180) % Antithrombin III Ag (72-124) % Func Antithrombin III (75-135) % Factor V Leiden Mutat (.) Sodium (136-145) mmol/L Potassium (3.5-5.1) mmol/L Chloride (98-107) mmol/L Carbon Dioxide (21.0-32.0) mmol/L Anion Gap (5-15) BUN (7-18) mg/dL Creatinine (0.70-1.30) mg/dL Estim Creat Clear Calc ml/min Est GFR (MDRD) Af Amer (>60) mL/min Est GFR (MDRD) Non-Af (>60) mL/min BUN/Creatinine Ratio (10-20) RATIO Glucose (74-106) mg/dL Serum Osmolality (280-301) mOsm/KG Calcium (8.5-10.1) mg/dL Phosphorus (2.5-4.9) mg/dL Magnesium (1.6-2.6) mg/dL Lipase (73-393) U/L PSA Screen (0.00-4.00) ng/mL Vitamin B12 (211-911) pg/mL Cortisol (3.44-22.45) ug/dL Urine Color (Yellow) Urine Clarity (Clear) Urine pH (5.0 - 8.0) Ur Specific [place] (1.002-1.030) Urine Protein (Negative) mg/dl Urine Glucose (UA) (Normal) mg/dl Urine Ketones (Negative) mg/dl Urine Occult Blood (Negative) /ul Urine Nitrite (Negative) Urine Bilirubin (Negative) mg/dL Urine Urobilinogen (Normal) mg/dl Ur Leukocyte Esterase (Negative) /ul Urine RBC (0-5) /hpf Urine WBC (0-5) /hpf Ur Squamous Epith Cells (0-5) /hpf Ur Transition Epith Cell (0-5) /hpf Urine Bacteria (None Seen) /hpf Urine Mucus (<or=2+) /hpf Urine Osmolality (50 - ) mOsm/KG Ur Random Sodium (Not Establ.) mmol/L Rheumatoid Factor (<15) IU/mL WENDY Screen (Negative) LAYA-1 Antibody SS-A/Ro IgG Antibody SS-B/La IgG Antibody Sm (Edouard) Antibody TANK CREWMEMBER Antibody Scl-70 Scleroderma Ab Double Strand DNA Ab Centromere B Antibody Beta-2-GPI IgG Ab (0-20) Beta-2-GPI IgA Ab (0-25) Beta-2-GPI IgM Ab (0-32) Anti-Cardiolipin IgG Ab (0-14) GPL U/mL Anti-Cardiolipin IgM Ab (0-12) MPL U/mL Factor II DNA Analysis (.) POC Glucose 77 122 H 143 H (70-110) mg/dL none Operations: None Procedures: None Summary of Care Provided: The patient is a 74 year old M with a past medical history of hypertension, hyperlipidemia, diabetes mellitus type 2, 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 He had had an MRI of the brain as an outpatient on 11/01/2019 at the [facility] that showed subacute stroke. MRI of the brain at [facility] on 11/02/2019 showed an acute subcentimeter infarct of the periventricular white matter of the left frontal lobe. He had a CTA of the head and neck that showed new focal low attenuating areas within the left side of the basal ganglia and within the periventricular white matter consistent with lacunar infarcts. This was new since a CTA he had in September 2018. There was a fusiform distended appearance of the basilar artery with a prominent focal confluence of the tip of the basilar artery. The right- sided posterior cerebral artery extends from the posterior aspect of the tip of the basilar confluence with tortuosity. There was slight focal narrowing of the vessel not seen on prior study allowing for differences in technique. There was a torturous appearance of the left vertebral artery with a hairpin turn. He was admitted to the hospital with a diagnosis of acute left frontal ischemic CVA. An echocardiogram was done which revealed a normal ejection fraction with no evidence of diastolic dysfunction. There is no mention of a PFO. Consultation was obtained with tele-neurology who recommended aspirin, Plavix and a medium intensity statin. He had no atrial fibrillation while being monitored on telemetry and apparently had a 30-day event monitor 1 year ago that showed no atrial fibrillation. A loop recorder was recommended and cardiology will schedule an appointment for this. Significant lab while in the hospital revealed a sodium of 132 with a chloride of 97. The BUN is 10 and the creatinine is 0.83. Calcium was within normal limits. The magnesium was low at 1.4. Hemoglobin A1c was 5.4 which is too low for a 74-year-old patient and I suspect he is probably having hypoglycemic episodes while at home. TSH was normal at 1.23 and his free T4 was 1.98. Hemoglobin was low at 12.1 with normochromic normocytic indices and a normal RDW. Total cholesterol was 82 with triglycerides of 57. LDL was 26 and the HDL was 45. He recently had an EGD and the H. Pylori was positive per Dr. Acevedo. He was started on 14 days of amoxicillin, clarithromycin and Protonix. I spoke with his son who felt the personality change started about 6 months prior to the stroke. He has been withdrawn and quiet and he is usually very outgoing and gregarious. His appetite has been erratic and and he has lost weight in the past 6 months. He has not noticed him being confused but, he was having a lot of difficulty following my directions at presentation to the rehab unit....more likely than not due to acute CVA. He has had falls at home and he seems to always fall backwards. He frequently complains of lightheadedness. He was admitted to [facility] in September of 2018 for a small L MCA ischemic infarct. 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 He has an appt to see a neurologist at the [facility] main campus on November 15. Since being in the rehab unit we had to hold Trazodone, Tamsulosin and Atorvastatin due to interaction with Clarithromycin. Since the Tamsulosin was discontinued the orthostatic hypotension has resolved and he no longer is c/o lightheadedness or nausea. PV bladder residual on the day of DC was 0 on no medication for BPH. Due to the low HGBA1C Glipizide was discontinued and Metformin XL was decreased to 500 mg once daily. With rare exception his blood sugars have all been less than 200. My recommendation is to keep his hemoglobin A1c between 7 and 7.5 and no lower than 7. He was started on Remeron to help stimulate his appetite at admission but after speaking with Dr. Acevedo this has been tried in the past with no improvement. Remeron was discontinued and he was started on Marinol 2.5 mg BID with no adverse side effects. This is going to be continued at discharge. He was taken off Wellbutrin at admission due to its SE of decreasing appetite and also it lowers seizure threshold and he has had multiple strokes which increases the risk of seizures. A hypercoagulable panel was done while he was in the rehab unit and the beta-2 GPI immunoglobulin G antibody was elevated at 27 with a normal level being 0-20 and the beta-2 GPI IgA antibody was elevated at 83 with the upper limits of normal being 25. The remainder of the hypercoagulable panel was within normal limits. 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 I spoke to his son Alina will follow up with Dr. Prescott, [facility] heme/onc in [facility]. He was not started on Anticoagulation so as not to interfere with any additional testing Dr. Prescott may want to do. On 11/15/2019 his vital signs at discharge were temperature 98, heart rate 91, lead pressure 117/69, respiratory rate 18 and he was 94 to 98% saturated on room air. Fasting blood sugar was 142 and the blood sugar prior to lunch was 160. Hemoglobin is 10.2 and a Hemoccult stool was negative. He has done very well with therapy and was ambulating with a standard cane for as much as 400 feet with contact-guard. He still needs a little assistance with lower body dressing but is stand by assist or contact guard with all other ADL's. He denied lightheadedness and also denied nausea and abd pain. He is very upbeat, pleasant and talkative......and after his son talked with him on the phone he noticed a big improvement in his mood and Dakota is actually making plans to go on a trip with a friend. He was discharged home in good condition. A copy of the DC summary was given to Dakota and also discs of the imaging done at [facility] prior to discharge so he could share this with the Neurologist at his appt on 11/16/2019 at 8 AM. ' Alert and oriented X 3, NAD, appropriate, cooperative, pleasant and upbeat PERRL, EOMI, he has mild ptosis of the left upper lid which has been chronic MM are moist and there are no mucosal lesions The neck is supple and the trachea is midline, there are no cervical nodes Lungs are clear to auscultation with good air exchange Heart has a RRR with no gallop and no rub and no murmur. He has no ectopy. Abdomen is soft, NT, ND and there are normal bowel sounds heard in all quadrants. There was no guarding with palpation of the epigastric area. He has been having a problem with constipation despite Senna Twice a day and prior to discharge he was given MOM and started on Miralax daily. Senna was discontinued CN's II - XII are grossly intact and he has 5/5 strength throughout. He is ambulating at a good pace with a standard cane with no loss of balance. Attic balance is good. No peripheral edema, no calf tenderness Skin is warm and dry, no rashes, no breakdown. Mood is improved This note was generated with [employer] dictation software. It may contain incorrect words, spelling, and punctuation that were not noted in checking the note before signing. Patient Problems: Active and Suspected Problems (Last Updated 11/15/19 @ 10:[address] Pamela Dickinson, ) Orthostatic hypotension (Acute) Acute CVA (cerebrovascular accident) (Acute) L frontal acute and NEW L side basal ganglia lacunar infarcts Hypomagnesemia (Acute) Normochromic normocytic anemia (Acute) Helicobacter pylori (H. pylori) infection (Acute) - Physical Exam Vitals/I&O's: Vital Signs Temp Pulse Resp BP Pulse Ox 98.0 F 91 18 117/69 94 11/15/19 07:00 11/15/19 07:00 11/15/19 07:00 11/15/19 07:00 11/15/19 07:00 Oxygen Flow Rate (L/min) 2 Oxygen Delivery Method Room Air Weight: 145 lb 8.081 oz Body Mass Index (BMI) 22.7 Finger Stick Blood Glucose 156 Orthostatic Vital Signs Start: 11/03/19 19:03 Freq: Status: Active Protocol: Activity Type Activity Date Activity User E-Sign Co-Sign Detail Recorded Client Recorded Date Recorded By Document 11/08/19 06:00 [place] [id number] 11/08/19 06:20 [place] 11/08/19 06:00 Orthostatic Vitals Standing -Blood Pressure (90/60-120/80 mm Hg) 140/83 H -Extremity Use Right Arm -Pulse Rate (60-100 beats/min) 83 Sitting -Blood Pressure (90/60-120/80 mm Hg) 131/93 H -Extremity Use Right Arm -Pulse Rate (60-100 beats/min) 87 Lying -Blood Pressure (90/60-120/80 mm Hg) 135/91 H -Extremity Use Right Arm -Pulse Rate (60-100 beats/min) 104 H Intake and Output for Last 24 Hours 11/13/19 11/14/19 11/15/19 23:59 23:59 23:59 Intake Total 600 / 600 720 / 720 Output Total 500 / 500 Balance 600 / 600 220 / 220 Laboratory Results 11/14/19 11:54: POC Glucose 102 11/14/19 16:36: POC Glucose 102 11/14/19 20:58: POC Glucose 180 H 11/15/19 07:05: POC Glucose 142 H Current Medications Acetaminophen (Tylenol) 650 mg PO Q6H PRN PRN PRN Reason: Pain Score 1-10/10 Amoxicillin (Amoxil) 1,000 mg PO Q12 [facility] Stop: 11/18/19 22:01 Last Admin: 11/15/19 07:38 Dose: 1,000 mg Documented by: Aspirin (Ecotrin) 81 mg PO DAILY@0800 [facility] Last Admin: 11/15/19 07:39 Dose: 81 mg Documented by: Atorvastatin Calcium (Lipitor) 40 mg PO QHS [facility] Last Admin: 11/03/19 21:27 Dose: 40 mg Documented by: Bisacodyl (Dulcolax) 10 mg RECTAL .PRN X 1 PRN PRN Reason: Constipation Capsaicin (Zostrix) 1 applic TOPICAL BID [facility], [facility]; Protocol Last Admin: 11/15/19 07:39 Dose: 1 applicatio Documented by: Clarithromycin (Biaxin) 500 mg PO BID [facility] Stop: 11/18/19 22:01 Last Admin: 11/15/19 07:38 Dose: 500 mg Documented by: Doxazosin Mesylate (Cardura) 1 mg PO QHS [facility] Last Admin: 11/09/19 21:40 Dose: 1 mg Documented by: [facility] Last Admin: 11/15/19 10:24 Dose: 2.5 mg Documented by: Sodium Chloride () 250 mls @ 15 mls/hr IV .[id number] PRN PRN Reason: Saline Flush Last Infusion: 11/11/19 03:22 Dose: Infused Documented by: Sodium Chloride () 250 mls @ 15 mls/hr IV .[id number] PRN PRN Reason: Additional IVPB Infusion Loperamide HCl (Imodium) 2 - 4 mg PO Q4H PRN PRN PRN Reason: DIARRHEA/LOOSE STOOLS Last Admin: 11/13/19 08:25 Dose: 2 mg Documented by: Losartan Potassium (Cozaar) 100 mg PO DAILY [facility] Last Admin: 11/15/19 07:38 Dose: 100 mg Documented by: Magnesium Hydroxide (Milk Of Magnesia) 30 ml PO .PRN X 1 PRN PRN Reason: Constipation Last Admin: 11/09/19 19:45 Dose: 30 ml Documented by: [facility]) [facility] Last Admin: 11/15/19 07:39 Dose: 500 mg Documented by: Mirtazapine (Remeron) 7.5 mg PO DAILY@1999 [facility] Last Admin: 11/14/19 20:10 Dose: 7.5 mg Documented by: Ondansetron HCl (Zofran) 4 mg IV Q6H PRN PRN PRN Reason: NAUSEA/VOMITING Last Admin: 11/10/19 01:22 Dose: 4 mg Documented by: Pantoprazole Sodium (Protonix) 40 mg PO BID [facility] Last Admin: 11/15/19 07:38 Dose: 40 mg Documented by: Senna/Docusate Sodium (Senokot-S, Amelia-Colace) 2 tablet PO BID [facility] Last Admin: 11/15/19 07:39 Dose: Not Given Documented by: Sodium Chloride () 10 - 40 ml IV UD PRN PRN Reason: SALINE FLUSH Last Admin: 11/11/19 19:39 Dose: 10 ml Documented by: Tamsulosin HCl (Flomax) 0.4 mg PO QHS [facility] Zolpidem Tartrate (Ambien (Generic)) 5 mg PO QHS [facility] Last Admin: 11/14/19 20:54 Dose: 5 mg Documented by: Discharge Activity: - - complete the exercises given to you by the therapists twice a day Weight Bearing Status: Full weight bearing Call your doctor if you observe: Fever of 101 or Higher, Inability to urinate, Inability to have a bowel movement, Shortness of breath, Dizziness, Fainting spells, Swelling in the ankles, Chest pain, Increased palpitations (irregular heartbeat), Uncontrolled pain, - - Go the ED or call 911 immediately if sudden onset: 1. facial droop 2. slurred speech or inability to get words out 3. weakness or numbness on 1 side of the body and not the other 4. vertigo or room spinning 5. loss of vision Call your PCP if severe diarrhea ( > 5 stools a day), painful sores in the mouth, painful swallowing, rash or itching. Taking a probiotic such as Lactobacillus or Kefir can help with loose stools while taking antibiotics. Home Medications: Medications to take at Discharge aspirin 81 mg tablet,delayed release 81 mg PO DAILY@0800 02/10/19 Clopidogrel Bisulfate [Plavix] 75 mg PO DAILY 11/03/19 Acetaminophen [Tylenol Tablet] 650 mg PO Q6H PRN PRN tab 11/15/19 Amoxicillin [Amoxil] 1,000 mg PO Q12 #7 cap 11/15/19 Atorvastatin Calcium 40 mg PO QHS #0 11/15/19 Capsaicin [Zostrix] 56.6 gm TP TID PRN PRN #56.6 cream..g. 11/15/19 Clarithromycin [Biaxin] 500 mg PO BID #7 tab 11/15/19 Dronabinol [Marinol] 2.5 mg PO BIDAC #60 cap 11/15/19 Loperamide [Imodium] 2 - 4 mg PO Q4H PRN PRN cap 11/15/19 Losartan Potassium [Cozaar] 100 mg PO DAILY #30 tab 11/15/19 Pantoprazole Sodium [Protonix] 40 mg PO BID #35 tab 11/15/19 Polyethylene Glycol 3350 [Miralax] 17 gm PO DAILY #765 gm 11/15/19 Tamsulosin HCl [Flomax] 0.4 mg PO QHS #30 cap 11/15/19 Trazodone HCl 50 mg PO QHS #0 11/15/19 metFORMIN (XR) [Glucophage Xr] 500 mg PO DAILYCM #30 tab 11/15/19 Following Prescrptions Were Given to Patient: Amoxicillin [Amoxil] 1,000 mg PO Q12 #7 cap Transmission Status: Sent to [facility] Clarithromycin [Biaxin] 500 mg PO BID #7 tab Transmission Status: Sent to [facility] Losartan Potassium [Cozaar] 100 mg PO DAILY #30 tab Transmission Status: Sent to [facility] Tamsulosin HCl [Flomax] 0.4 mg PO QHS #30 cap Prescription Printed metFORMIN (XR) [Glucophage Xr] 500 mg PO DAILYCM #30 tab Prescription Printed Dronabinol [Marinol] 2.5 mg PO BIDAC #60 cap Transmission Status: Received by [facility] Polyethylene Glycol 3350 [Miralax] 17 gm PO DAILY #765 gm Transmission Status: Sent to [facility] Pantoprazole Sodium [Protonix] 40 mg PO BID #35 tab Transmission Status: Sent to [facility] Capsaicin [Zostrix] 56.6 gm TP TID PRN PRN #56.6 cream..g. PRN Reason: painful joints Transmission Status: Sent to [facility] Primary Care Physician: Diamond Acevedo MD [Primary Care Provider] - Please follow up with your Primary Care Physician in: 7-10 days Please Follow Up With: Dr. Acevedo Please Follow Up With: Dr. Bryant Please Follow Up With: Tristen Quach MD When: call the office for an appt to set up a time to insert the loop recorder Patient Instructions: What Is Atrial Flutter/Atrial Fibrillation?, Hypoglycemia (Low Blood Sugar) Disposition: Home Minutes spent on discharge:: 45 Medical Necessity - Tobacco Use Smoking Status: Never smoker Tobacco Use: Non-smoker Meaningful Use Info Meaningful Use Diagnoses (Choose all that apply): Ischemic CVA - CVA Therapy Assessed for PT,OT and/or ST?: Yes - Ischemic Stroke Antithrombotic order at d/c?: Yes Dx of Atrial fib/flutter?: No Anticoagulant at discharge?: No Reason anticoagulant not ordered: Treatment not Indicated - held to allow the heme/onc doc to do any additional testing for antiphopholipid antibody S without interence due to an anticoagulant. Statins at discharge?: Yes Primary Dx Acute Ischemic CVA?: Yes IV tPA ordered during stay?: No Reason IV t-PA not ordered: Treatment not Indicated - sx had been present ofr 1 day prior to presentation to the ED Inpatient E&M: [id number] Disch Hosp
[2019-11-15 11:45] LABS: Bedside Glucose 160 mg/dL (70-110)
--- NOTE | 2019-11-15 13:31 | NURSING ---
discharged home with son. discharge instructions, medications and appointments reviewed with pt and son. denies questions or concerns.
== END 2019-11-15 13:30 | disposition home health service (06) | DRG 57 ==
PROVIDERS: Hospitalist; Admitting Provider Internal Medicine; PCP Internal Medicine; Visit Provider Internal Medicine
DX: I69.391 Dysphagia following cerebral infarction (principal); I69.328 Other speech and language deficits following cerebral infarction; R13.10 Dysphagia, unspecified; I10 Essential (primary) hypertension; E78.5 Hyperlipidemia, unspecified; F32.9 Major depressive disorder, single episode, unspecified; F41.9 Anxiety disorder, unspecified; N40.0 Benign prostatic hyperplasia without lower urinary tract symptoms; E11.9 Type 2 diabetes mellitus without complications; B96.81 Helicobacter pylori [H. pylori] as the cause of diseases classified elsewhere; Z91.81 History of falling; H02.402 Unspecified ptosis of left eyelid; I95.1 Orthostatic hypotension; D64.9 Anemia, unspecified; K29.70 Gastritis, unspecified, without bleeding; R32 Unspecified urinary incontinence; K43.9 Ventral hernia without obstruction or gangrene
CPT/HCPCS: 36415; 80048; 81001; 81240; 81241; 82274; 82533; 82607; 82962; 83690; 83735; 83930; 83935; 84100; 84153; 84300; 85014; 85018; 85025; 85027; 85300; 85301; 85302; 85303; 86038; 86146; 86147; 86225; 86235; 86431; 87086; 92507; 92523; 92526; 92610; 97110; 97112; 97116; 97162; 97166; 97530; 97535; 97802; J7030; J7040; J7050; A4216; G0103; J1610; J2405

== ENCOUNTER 2019-11-22 10:11 | Day surgery (SDC) | payer MEDICARE, OTHER, SELFPAY ==
[2019-11-03 18:32] VITALS: BMI 22.7
--- NOTE | 2019-11-18 09:50 | HP.PCM_ITS ---
History and Physical Date of Admission: 11/22/19 History of Present Illness Details: 74-year-old male with past medical history of diabetes and was admitted to the hospital for CVA. He had an echo which showed mild mitral regurgitation and stage I diastolic dysfunction. He had a 30-day event monitor which so far did not show any evidence of atrial fibrillation. He is doing well from a cardiac standpoint. He denies any chest pain, shortness of breath, palpitations, dizziness, syncope. He is continuing to recover from his CVA. 01/27/2019: Patient has been having cough with white expectoration and shortness of breath for the past 4 weeks. 02/10/2019: Shortness of breath has improved. Stress test was negative for ischemia. Patient is also following with pulmonary. 08/11/2019: Mr. Henning was having shortness of breath and a 2D echo was ordered by primary care physician. It showed preserved EF, diastolic function could not be assessed, no significant valvular abnormalities. His shortness of breath is resolved at this time. He has trace left lower extremity edema. This is the side affected by his stroke. He still has some mild residual weakness from the CVA. He is able to ambulate. 11/22/2019: Patient states feeling well. He presents today for loop recorder placement. He denies any shortness of breath, lower extremity edema, palpitations, lightheadedness, dizziness, presyncope, syncope, orthopnea, PND, chest pain, arm pain, jaw pain, or neck pain. Intake Vital Signs: See EMR Intake Visit Reasons: Loop Recorder Placement Active Directory Engineer Required: No Accompanied by: None Is patient in pain?: No Allergies No Known Allergies Allergy (Verified 08/11/19 13:02) Medications See EMR Ejection fraction %: 60 to 64 [facility] Medical History Shortness of breath (Acute) CVA (cerebral vascular accident) (Chronic) BPH (benign prostatic hyperplasia) (Chronic) Diabetes mellitus (Chronic) Surgical History History of tonsillectomy (Resolved) Family History Mother Myocardial infarction Social History (Updated 09/17/19 @ 13:[address] Imani Childers MD) Smoking Status: Never smoker alcohol intake: current alcohol intake frequency: a few times a week substance use type: does not use caffeine: Yes Type: coffee, tea ROS Const Const: Positive for weakness; negative for fatigue, headache(s), frequent falls, difficulty sleeping or excessive sweating Eyes Eyes: Negative for loss of peripheral vision, transient loss of vision, blurry vision, double vision or tunnel vision ENT ENT: Negative for headache(s), dizziness, Nosebleed/epistaxis or balance problems Cardio Chest Pain: No Palpitations: No Edema: Bilateral Muscle aches with walking: None Resp Respiratory: Negative for SOB with activity, SOB at rest, SOB orthopnea\SOB lying down, Cough or paroxysmal nocturnal dyspnea GI GI: Negative nausea, vomiting, heartburn or black,tarry stools : Negative for hematuria Musc Musc: Negative for muscle aches/ myalgia, muscle weakness, joint pain or balance problems Skin Skin: Negative non-healing lesions, rash or unusual bruising Neuro Neuro: Positive for weakness; negative for dizziness, lightheadedness, near syncope, syncope, frequent falls, headache(s), blurry vision, double vision or lack of coordination Juan Hematologic/Lymphatic: Negative for easy bleeding or easy bruising Endo Endo: Negative for fatigue, excessive sweating or increased thirst/drinking Psych Psych: Negative for anxiety or depression Allergy Allergy/Immunology: Negative for hives, Negative for rash Cardiology Exam Const Appearance: cooperative; negative acute distress Nutritional Appearance: well nourished Head Head: normocephalic and atraumatic Ears: hearing grossly normal bilaterally Nose: external nose normal Face and Sinus: face symmetric Mouth: moist mucous membranes Teeth and gingiva: fair dentition Eyes General: appearance normal, both eyes and all related structures Eyelids: eyelids normal Conjunctivae: conjunctivae normal Neck Neck: trachea midline and no JVD Chest Chest inspection: symmetric chest movement; negative pursed lip breathing Auscultation: Bilateral: Clear to Auscultation Cardio Rate: regular rate Rhythm: regular rhythm Heart sounds: S1 normal and S2 normal No Murmurs GI GI: normal to inspection Neuro General: alert, awake and oriented x3 Gait: Negative ataxic Skin Skin: no rashes or lesions noted; negative atrophy or jaundice Extremities Pulses: Normal: Right Posterior Tibial Pulse, Left Posterior Tibial Pulse Lower Extremity Edema: None: Right, Trace: Left Musculoskel Musculoskeletal: No joint tenderness Psych Psychological: normal affect Assessment & Plan 1. 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 He will continue to follow with Manufacturing Plant Technician/Oncologist for antiphospholipid antibody syndrome. He will continue to follow with pacemaker clinic on a routine basis. 2. Diastolic dysfunction, left ventricle I51.9 Plan Compensated. He will continue current medications. 3. Shortness of breath R06.02 Plan This appears to have resolved. We will monitor. Patient's trace left-sided edema appears to be related to his CVA. No edema on the right side.
[2019-11-19 14:15] VITALS: BMI 25.2
--- NOTE | 2019-11-22 11:32 | CL.IE_ITS ---
Patient: KIMBERLEE DEAN Study Date: 11/22/2019 Performing: Tristen Quach MD : 1945 Age: 74 Gender: male PROCEDURES PERFORMED [id number] OF LOOP RECORDER INDICATIONS Cryptogenic stroke PROCEDURE DETAILS The patient was brought to the Catheterization Lab in the postabsorptive nonsedated state. Infor med consent was obtained prior to the procedure. Local anesthetic was given subcutaneously to the le ft upper chest area with Lidocaine 2%. Incision was made to the left upper chest. ICM Reveal LINQ was inserted into the pocket. Steri-strips applied to Lt chest area. The patient tolerated the procedur e well. Estimated Blood Loss: < 10 mls IMPLANTED / EX-PLANTED DEVICES IMPLANTED DEVICE(S): ICM Reveal LINQ - Engineering Executive: Snapstream, Model # [id number] Serial # [id number] DEVICE PARAMETERS CONCLUSIONS / RECOMMENDATIONS Device Conclusions: Successful implantation of a patient activated loop recorder. Device Recommendations: Follow up with Primary Care Physician PROCEDURE MEDICATIONS Versed 1 mg IV Antibiotic given in appropriate timeframe. Ancef 2 Gm IV @ 11/22/2019 11:19:37 Signed By Tristen Quach MD On 11/22/2019 11:31:08 Tristen Quach MD
== END 2019-11-22 12:45 | disposition home or self-care (01) ==
PROVIDERS: PCP Internal Medicine; Referring Provider Internal Medicine Cardiovascular Disease; Visit Provider Internal Medicine Cardiovascular Disease
DX: I63.312 Cerebral infarction due to thrombosis of left middle cerebral artery (principal); I51.9 Heart disease, unspecified; E11.9 Type 2 diabetes mellitus without complications; N40.0 Benign prostatic hyperplasia without lower urinary tract symptoms; Z79.82 Long term (current) use of aspirin; Z79.84 Long term (current) use of oral hypoglycemic drugs; Z79.02 Long term (current) use of antithrombotics/antiplatelets; Z79.899 Other long term (current) drug therapy
CPT/HCPCS: 33285; 99152; J7040

== ENCOUNTER 2020-03-21 19:39 | Inpatient (IN) | payer MEDICARE, OTHER, SELFPAY ==
[2020-01-18 14:52] VITALS: BMI 23.5
[2020-03-21 19:43] VITALS: BP 166/91; PULSE 85; RESP 16; RESP 18; TEMP 37.1; O2SAT 95; BMI 22.3
--- NOTE | 2020-03-21 20:00 | NURSING ---
Pt's daughter Phyllis called in and was given protocol of unit and explained quarantine.
--- NOTE | 2020-03-21 20:51 | HP.PCM_ITS ---
Problem List (1) Fall Status: Acute (2) Nasal fracture Status: Acute (3) Maxillary fracture Status: Acute (4) Nasal laceration Status: Acute (5) Laceration of mouth Status: Acute (6) Depression Status: Chronic (7) Anxiety Status: Chronic (8) Insomnia Status: Chronic (9) HTN (hypertension) Status: Chronic Qualifiers: (10) HLD (hyperlipidemia) Status: Chronic Qualifiers: (11) CVA (cerebral vascular accident) Status: Chronic Qualifiers: (12) BPH (benign prostatic hyperplasia) Status: Chronic Qualifiers: (13) Debility Status: Acute Comment: due to recent left basal ganglia lacunar infarcts and acute left frontal ischemic CVA (14) Diabetes mellitus Status: Chronic Qualifiers: Comment: newly diagnosed, type II (15) Ventral hernia Status: Chronic History of Present Illness Date of Admission: 03/21/20 Chief Complaint: Here for rehabilitation, strengthening, prior to discharge home with family. 03/18/20 The patient is a 74 year old Male with below past medical history admitted to [facility] for Level 2 Trauma. Ground level fall, hit face, on aspirin, plavix. Facial trauma, active bleeding from nose, mouth. Bleeding from nose, lip, vomiting blood. Attempts to control bleeding included sutures, thromboxane, Afrin nasal spray, multiple nasal rockets. Patient continued to bleed, vomit blood. Patient intubated to protect his airway. CT chest showed patchy regions ground glass attenuation. CT face showed nasal fracture, maxillary fracture. CT cervical spine negative for fracture, dislocation. 03/19/20 Nasal rocket removed. Transfused 1 unit PRBC. Extubated. 03/19/20 Nasal fracture, maxillary fracture, non-operative management recommended. Nasal laceration, internal mouth laceration, repaired with absorbable sutures. Speech Therapy recommended nectar thick full liquid diet. 03/21/20 Admit to TCU with debility, here fo rehabilitation, strengthening, prior to discharge home with family. Past Medical History Past Medical History (Chronic Problems): Chronic Problems (Last Reviewed 01/18/20 @ 15:[address] Imani Childers MD) Depression (Chronic) Anxiety (Chronic) Insomnia (Chronic) History of loop recorder (Chronic 11/22/19) HTN (hypertension) (Chronic) HLD (hyperlipidemia) (Chronic) Anxiety and depression (Chronic) He is still depressed on a very small dose of Wellbutrin Ischemic cerebrovascular disease (Chronic) moderate white matter diffuse disease on MRI and CT of the brain with moderate ventricular dilatation Cerebral atrophy (Chronic) moderate with ventricular dilatation CVA (cerebral vascular accident) (Chronic) BPH (benign prostatic hyperplasia) (Chronic) Diabetes mellitus (Chronic) newly diagnosed, type II Ventral hernia (Chronic) Medical History: Medical History (Last Reviewed 01/18/20 @ 15:[address] Imani Childers MD) HTN (hypertension) (Chronic) I10 HLD (hyperlipidemia) (Chronic) E78.5 Anxiety and depression (Chronic) F41.9, F32.9 He is still depressed on a very small dose of Wellbutrin CVA (cerebral vascular accident) (Chronic) I63.9 BPH (benign prostatic hyperplasia) (Chronic) N40.0 Diabetes mellitus (Chronic) E11.9 newly diagnosed, type II Allergies No Known Allergies Allergy (Verified 01/18/20 14:55) Home Medications: Ambulatory Orders Medication Instructions Recorded aspirin 81 mg tablet,delayed 81 mg PO DAILY@0800 02/10/19 release Clopidogrel Bisulfate [Plavix] 75 mg PO DAILY 11/03/19 Atorvastatin Calcium 40 mg PO QHS #0 11/15/19 Polyethylene Glycol 3350 [Miralax] 17 gm PO DAILY #765 gm 11/15/19 Dronabinol [Marinol] 2.5 mg PO BIDAC 03/21/20 Losartan Potassium [Cozaar] 100 mg PO DAILY 03/21/20 Pantoprazole Sodium [Protonix] 40 mg PO BID 03/21/20 Tamsulosin HCl [Flomax] 0.8 mg PO QHS 03/21/20 metFORMIN (XR) [Glucophage Xr] 500 mg PO BID 03/21/20 Surgical History: Surgical History (Last Reviewed 01/18/20 @ 15:[address] Imani Childers MD) History of loop recorder (Chronic) Onset Date: 11/22/19 Z98.890 Surgical History: tonsillectomy, - - Hemorrhoidectomy, Loop recorder implantation, bilateral knee arthroscopy, bilateral shoulder arthroplasty. Psychiatric History: Anxiety, Depression Lives: With Family - , lives with son Geremias. Smoking Status: Never smoker Tobacco Use: Non-smoker Alcohol: Occasional - 7 drinks per week, 4 shots Landon Walker per week. - *Family History Paternal Family History: Family History (Last Reviewed 01/18/20 @ 15:[address] Imani Childers MD) Mother Myocardial infarction History Items: - - Patient denies any market maternal or paternal family history including heart disease, diabetes or cancer. Sibling Family History: Family History (Last Reviewed 01/18/20 @ 15:[address] Imani Childers MD) Mother Myocardial infarction History Items: - - bells palsy - brother Offspring Family History: Family History (Last Reviewed 01/18/20 @ 15:[address] Imani Childers MD) Mother Myocardial infarction History Items: - - he has a grandson who has had 3 strokes and is in his early 20's Maternal Family History: Family History (Last Reviewed 01/18/20 @ 15:[address] Imani Childers MD) Mother Myocardial infarction History Items: Heart Disease Review of Systems Constitutional: Denies: Chills, Fever, Weight Change HEENT: Denies: Head Aches, Sinus Congestion, Sinus Drainage Cardiovascular: Denies: Chest Pain, Palpitations Respiratory: Denies: Cough, Shortness of breath at rest, Sputum production Gastrointestinal: Denies: Abdominal Pain, Nausea, Vomiting Genitourinary: Denies: Dysuria Musculoskeletal: Denies: Joint Pain, Joint Tenderness Skin: Denies: Rash, Wounds Neurological: Denies: Numbness, Tingling, Focal weakness Psychiatric: Denies: Anxiety, Depression, Homicidal Ideations, Suicidal Ideations Hematologic/ Lymphatic: Denies: Easy Bruising, Easy Bleeding VTE Information - Inpt Only VTE Present on Admission: No VTE Mechan Device Prophylaxis: Knee High ADITYA Hose VTE Pharm Prophylaxis ordered?: No Reason prophylaxis not ordered:: Medical Contraindication Patient Problems: Active and Suspected Problems (Last Reviewed 01/18/20 @ 15:[address] Imani Childers MD) Fall (Acute) Nasal fracture (Acute) Maxillary fracture (Acute) Nasal laceration (Acute) Laceration of mouth (Acute) - Physical Exam Vitals/I&O's: Vital Signs Temp Pulse Resp BP Pulse Ox 98.8 F 85 18 166/91 H 95 10/06/20 19:43 03/21/20 19:43 03/21/20 19:43 03/21/20 19:43 03/21/20 19:43 Oxygen Delivery Method Room Air Body Mass Index (BMI) 23.5 Finger Stick Blood Glucose 156 General: Alert, Oriented x3, Cooperative HEENT: PERRLA, EOMI, Normocephalic, - - Bruising on face. Neck: Supple, No JVD, Negative Carotid Bruits Lungs: Clear to auscultation, Normal air movement Cardiovascular: Regular rate, No murmurs Abdomen: Bowel Sounds Present, Soft, Non Tender Extremities: No edema, Capillary Refill Less than 3 Seconds Skin: No rashes, No breakdown Musculoskeletal: No Tenderness to Palpation of Joints or Extremities Neurological: Cranial nerves II-XII grossly intact Psych/Mental Status: Normal Affect, Appropriate Current Medications Aspirin (Ecotrin) 81 mg PO DAILY@0800 SHMUEL Atorvastatin Calcium (Lipitor) 40 mg PO QHS SHMUEL Clopidogrel Bisulfate (Plavix) 75 mg PO DAILY SHMUEL Dronabinol (Marinol) 2.5 mg PO BIDAC SHMUEL Losartan Potassium (Cozaar) 100 mg PO DAILY SHMUEL Metformin HCl (Glucophage Xr) 500 mg PO BIDCM SHMUEL Pantoprazole Sodium (Protonix) 40 mg PO BID SHMUEL Polyethylene Glycol (Miralax) 17 gm PO DAILY SHMUEL Tamsulosin HCl (Flomax) 0.8 mg PO QHS SHMUEL Tuberculin PPD (Tubersol, Aplisol, Ppd) 5 tu ID X1 ONE Stop: 03/22/20 10:01 Tuberculin PPD (Tubersol, Aplisol, Ppd) 5 tu ID X1 ONE Stop: 03/29/20 10:01 Assessment/Plan All Active Problems (Last Reviewed 01/18/20 @ 15:[address] Imani Childers MD) Fall (Acute) Nasal fracture (Acute) Maxillary fracture (Acute) Nasal laceration (Acute) Laceration of mouth (Acute) Orthostatic hypotension (Acute) Acute CVA (cerebrovascular accident) (Acute) Hypomagnesemia (Acute) Normochromic normocytic anemia (Acute) Helicobacter pylori (H. pylori) infection (Acute) Hyponatremia (Acute) Debility (Acute) Chest pain (Resolved) Diastolic dysfunction, left ventricle (Resolved) 74 year old male with below past medical history hospitalized for fall, facial trauma with uncontrolled bleeding requiring overnight intubation, blood transfusion, admitted to TCU with debility, here for rehabilitation, cherri gardner, prior to discharge home with family. * Debility - PT/OT. * Dysphagia - ST. * Pain - Tylenol 1000MG Q6H PRN pain (1-10). * Bowel - Miralax 17GM daily, Dulcolax 10MG OK daily PRN. * Adult immunization - Administer Prevnar 13, Pneumovax 23, Fluzone as appropriate. * DVT prophylaxis - Hold, recent life threatening bleed. * Stroke - Occurred 11/02/19, Aspirin 81MG daily starting 03/25/20, stop Plavix for now as he is > 3 months from event, increases risk of bleeding without further decreasing of stroke. He has loop recorder looking for atrial fibrillation. * Hyperlipidemia - Atorvastatin 40MG QHS. * Appetite loss - Marinol 2.5MG BID. * Hypertension - Losartan 100MG daily. * Diabetes Mellitus II - Metformin XR 500MG BID. * GERD - Pantoprazole 40MG BID. * BPH - Tamsulosin 0.8MG daily. * Iron deficiency anemia - Ferrex 150MG daily.
[2020-03-21 21:40] LABS: Bedside Glucose 185 mg/dL (70-110)
[2020-03-21] MEDS: Atorvastatin Calcium 40 MG Tablet PO (21:52)
[2020-03-21] MEDS: Tamsulosin HCl 0.4 MG Capsule 0.8 MG PO (21:54)
[2020-03-22 05:40] LABS: Absolute Lymphocyte Count 1.18 X10^3/uL (0.83-4.51); Basophil# 0.07 X10^3/uL; Basophil% 0.7 % (0-1); Eosinophil# 0.12 X10^3/uL; Eosinophils% 1.3 % (0-5); Hematocrit 30.9 % (40-54); Hemoglobin 10.1 g/dL (13.0-16.5); Lymphocyte # 1.18 X10^3/ul (4.0); Lymphocyte % 12.4 % (19-41); Mean Corp Hgb Conc 32.7 g/dL (32-36); Mean Corpuscular Hgb 27.7 pg (27.0-32.0); Mean Corpuscular Volume 84.7 fL (80-94); Mean Platelet Vol. 9.4 fl (6.2-12.0); Monocyte# 1.05 X10^3/uL; NRBC Flagged by Analyzer 0 % (0-5); Neutrophil # 7.02 X10^3/uL (2.7-7.7); Neutrophil % 73.4 % (47-70); Platelet Count 174 K/mm3 (150-450); RBC Distribution Width CV 13.3 % (11.6-14.6); RBC Distribution Width SD 41.2 fl (35.1-43.9); Red Blood Count 3.65 M/mm3 (4.6-6.2); White Blood Count 9.6 K/mm3 (4.4-11.0)
[2020-03-22 05:53] LABS: Anion Gap 5 (5-15); BUN 16 mg/dL (7-18); BUN/Creat Ratio 18.9 RATIO (10-20); Calcium,Total 8.7 mg/dL (8.5-10.1); Chloride 100 mmol/L (98-107); Creatinine, Serum 0.84 mg/dL (0.70-1.30); EST Glomerular Filtration Rate 94 mL/min (>60); Est Glom Filt Rate - Afr Amer 114 mL/min (>60); Estimated Creatinine Clearance 69.41 ml/min; Glucose 195 mg/dL (74-106); Potassium 3.8 mmol/L (3.5-5.1); Sodium Level 133 mmol/L (136-145)
[2020-03-22 06:33] VITALS: BP 170/97; PULSE 76; RESP 16; TEMP 36.9; O2SAT 95
[2020-03-22] MEDS: Pantoprazole Sodium 40 MG Tablet PO ×2 (06:34→17:13)
[2020-03-22] MEDS: Polyethylene Glycol 3350 17 GM PACKET PO (06:35)
[2020-03-22] MEDS: Losartan Potassium 100 MG Tablet PO (06:35)
[2020-03-22] MEDS: Glucerna Shake 120 ML LIQUID PO ×4 (06:35→22:08)
[2020-03-22 06:36] LABS: Bedside Glucose 214 mg/dL (70-110)
[2020-03-22] MEDS: Dronabinol 2.5 MG Capsule PO ×2 (06:39→17:13)
[2020-03-22] MEDS: metFORMIN (XR) 500 MG Tablet PO ×2 (08:00→17:13)
--- NOTE | 2020-03-22 08:44 | PCM.PN.RX ---
<Sandra Lam - Last Filed: 03/22/20 08:44> Progress Note - Pharmacy Subjective: TCU Admission Objective: Allergies No Known Allergies Allergy (Verified 01/18/20 14:55) Current Medications Generic Name Dose Route Start Last Admin Trade Name Freq PRN Reason Stop Dose Admin Acetaminophen 1,000 mg 03/21/20 21:07 Tylenol PO Q6H PRN PRN Pain Score 1-10/10 Aspirin 81 mg 03/22/20 08:00 Ecotrin PO DAILY@0800 SHMUEL Atorvastatin Calcium 40 mg 03/21/20 22:00 03/21/20 21:52 Lipitor PO 40 mg QHS SHMUEL Administration Bisacodyl 10 mg 03/21/20 21:07 Dulcolax RECTAL DAILY PRN Constipation Dronabinol 2.5 mg 03/22/20 07:30 03/22/20 06:39 Marinol PO 2.5 mg BIDAC SHMUEL Administration Losartan Potassium 100 mg 03/22/20 06:00 03/22/20 06:35 Cozaar PO 100 mg DAILY SHMUEL Administration Metformin HCl 500 mg 03/22/20 08:00 03/22/20 08:00 Glucophage Xr PO 500 mg BIDCM SHMUEL Administration Nutritional Formula (Lactose Free) 120 ml 03/22/20 06:00 03/22/20 06:35 Glucerna Shake PO 120 ml 4X/DAY SHMUEL Administration Pantoprazole Sodium 40 mg 03/22/20 06:00 03/22/20 06:34 Protonix PO 40 mg BID SHMUEL Administration Polyethylene Glycol 17 gm 03/22/20 06:00 03/22/20 06:35 Miralax PO 17 gm DAILY SHMUEL Administration Polysaccharide Iron Complex 150 mg 03/22/20 08:30 Ferrex 150 PO DAILYCM SHMUEL Tamsulosin HCl 0.8 mg 03/21/20 22:00 03/21/20 21:54 Flomax PO 0.8 mg QHS SHMUEL Administration Tuberculin PPD 5 tu 03/22/20 10:00 Tubersol, Aplisol, Ppd ID 03/22/20 10:01 X1 ONE Tuberculin PPD 5 tu 03/29/20 10:00 Tubersol, Aplisol, Ppd ID 03/29/20 10:01 X1 ONE Problem List (Last Reviewed 01/18/20 @ 15:[address] Imani Childers MD) Fall (Acute) Nasal fracture (Acute) Maxillary fracture (Acute) Nasal laceration (Acute) Laceration of mouth (Acute) Depression (Chronic) Anxiety (Chronic) Insomnia (Chronic) Vital Signs Temp Pulse Resp BP Pulse Ox 98.4 F 76 16 170/97 H 95 03/22/20 06:33 03/22/20 06:33 03/22/20 06:33 03/22/20 06:33 03/22/20 06:33 Oxygen Delivery Method Room Air Weight: 64.58 kg Body Mass Index (BMI) 22.3 Finger Stick Blood Glucose 156 Sodium 133 mmol/L (136-145) L 03/22/20 05:05 Potassium 3.8 mmol/L (3.5-5.1) 03/22/20 05:05 Chloride 100 mmol/L (98-107) 03/22/20 05:05 Carbon Dioxide 28.0 mmol/L (21.0-32.0) 03/22/20 05:05 Anion Gap 5 (5-15) 03/22/20 05:05 BUN 16 mg/dL (7-18) 03/22/20 05:05 Creatinine 0.84 mg/dL (0.70-1.30) 03/22/20 05:05 Est GFR (MDRD) Af Amer 114 mL/min (>60) 03/22/20 05:05 Est GFR (MDRD) Non-Af 94 mL/min (>60) 03/22/20 05:05 BUN/Creatinine Ratio 18.9 RATIO (10-20) 03/22/20 05:05 Glucose 195 mg/dL (74-106) H 03/22/20 05:05 Assessment/Plan: 1. Pain: acetaminophen 1000mg PO Q6H PRN pain 1-03/25. Please continue to monitor for increased pain and PRN usage. 2. Stroke: aspirin 81mg PO DAILYCM. Please continue to monitor for S/S of bleeding/stroke and hemoglobin (last 10.1g/dL). 3. Hyperlipidemia: atorvastatin 40mg PO QHS. Please continue to monitor annual lipid panel (last from 10/2019) and for muscle pain. 4. Hypertension: losartan 100mg PO daily. Please continue to monitor BP, renal function and potassium. 5. Appetite loss: dronabinol 2.5mg PO BIDAC. Please continue to monitor for dizziness, drowsiness, and improvement in appetite 6. Type II Diabetes Mellitus: metformin XR 500mg PO BIDCM. Please continue to monitor annual hemoglobin A1c (last 5.9% from 10/2019), renal function, S/S of hypo/hyperglycemia, and POC glucose. 7. GERD: pantoprazole 40mg PO BID. Please continue to monitor for S/S of GERD and diarrhea. 8. BPH: tamsulosin 0.8mg PO QHS. Please continue to monitor for hypotension and improved urine flow. 9. Iron deficiency anemia: Ferrex 150mg PO DAILYCM. Please continue to monitor hemoglobin (last 10.1g/dL) and for dark stools. Psychotropic Medications: None Unnecessary Medications: None Bowel Regimen: Miralax 17gm PO daily and bisacodyl 10mg NM daily PRN constipation. Please continue to monitor for constipation and PRN usage. Date of Note:: 03/22/20 - Provider Comments Provider responsibility: Provider responsible to enter orders to implement recommendations <Lui Ayala Chi - Last Filed: 03/22/20 17:36> Progress Note - Pharmacy Subjective: [] Objective: Allergies No Known Allergies Allergy (Verified 01/18/20 14:55) Current Medications Generic Name Dose Route Start Last Admin Trade Name Freq PRN Reason Stop Dose Admin Acetaminophen 1,000 mg 03/21/20 21:07 Tylenol PO Q6H PRN PRN Pain Score 1-10/10 Aspirin 81 mg 03/22/20 08:00 Ecotrin PO DAILY@0800 SHMUEL Atorvastatin Calcium 40 mg 03/21/20 22:00 03/21/20 21:52 Lipitor PO 40 mg QHS SHMUEL Administration Bisacodyl 10 mg 03/21/20 21:07 03/22/20 14:29 Dulcolax RECTAL 10 mg DAILY PRN Administration Constipation Dronabinol 2.5 mg 03/22/20 07:30 03/22/20 17:13 Marinol PO 2.5 mg BIDAC SHMUEL Administration Losartan Potassium 100 mg 03/22/20 06:00 03/22/20 06:35 Cozaar PO 100 mg DAILY SHMUEL Administration Metformin HCl 500 mg 03/22/20 08:00 03/22/20 17:13 Glucophage Xr PO 500 mg BIDCM SHMUEL Administration Nutritional Formula (Lactose Free) 120 ml 03/22/20 06:00 03/22/20 17:13 Glucerna Shake PO 120 ml 4X/DAY SHMUEL Administration Pantoprazole Sodium 40 mg 03/22/20 06:00 03/22/20 17:13 Protonix PO 40 mg BID SHMUEL Administration Polyethylene Glycol 17 gm 03/22/20 06:00 03/22/20 06:35 Miralax PO 17 gm DAILY SHMUEL Administration Polysaccharide Iron Complex 150 mg 03/22/20 08:30 03/22/20 09:28 Ferrex 150 PO 150 mg DAILYCM SHMUEL Administration Tamsulosin HCl 0.8 mg 03/21/20 22:00 03/21/20 21:54 Flomax PO 0.8 mg QHS SHMUEL Administration Tuberculin PPD 5 tu 03/29/20 10:00 Tubersol, Aplisol, Ppd ID 03/29/20 10:01 X1 ONE Problem List (Last Reviewed 01/18/20 @ 15:[address] Imani Childers MD) Fall (Acute) Nasal fracture (Acute) Maxillary fracture (Acute) Nasal laceration (Acute) Laceration of mouth (Acute) Depression (Chronic) Anxiety (Chronic) Insomnia (Chronic) Vital Signs Temp Pulse Resp BP Pulse Ox 97.0 F L 73 16 159/93 H 97 03/22/20 14:01 03/22/20 14:01 03/22/20 14:01 03/22/20 14:01 03/22/20 14:01 Oxygen Delivery Method Room Air Weight: 64.58 kg Body Mass Index (BMI) 22.3 Finger Stick Blood Glucose 156 Sodium 133 mmol/L (136-145) L 03/22/20 05:05 Potassium 3.8 mmol/L (3.5-5.1) 03/22/20 05:05 Chloride 100 mmol/L (98-107) 03/22/20 05:05 Carbon Dioxide 28.0 mmol/L (21.0-32.0) 03/22/20 05:05 Anion Gap 5 (5-15) 03/22/20 05:05 BUN 16 mg/dL (7-18) 03/22/20 05:05 Creatinine 0.84 mg/dL (0.70-1.30) 03/22/20 05:05 Est GFR (MDRD) Af Amer 114 mL/min (>60) 03/22/20 05:05 Est GFR (MDRD) Non-Af 94 mL/min (>60) 03/22/20 05:05 BUN/Creatinine Ratio 18.9 RATIO (-) 03/22/20 05:05 Glucose 195 mg/dL (74-106) H 03/22/20 05:05 Assessment/Plan: Psychotropic Medications: Unnecessary Medications: Bowel Regimen: - Provider Comments Provider responsibility: Provider responsible to enter orders to implement recommendations Provider Comments to Recommendations by Pharmacy: Agree
[2020-03-22] MEDS: Iron Polysaccharide Complex 150 MG CAPSULE PO (09:28)
[2020-03-22] MEDS: Tuberculin,Purif.prot.deriv. 50 TU/ML Vial 5 ML ID (09:34)
--- NOTE | 2020-03-22 10:55 | NURSING ---
Addendum entered by Sharon Brenner 03/22/20 11:34: Dr Ayala notified of this. Orders for KUB to be done. Original Note: Pt received soap suds enema today d/t c/o constipation. Pt was unable to hold enema and tolerated 3/4 of the bag. Pt passed small amount of hard stool. About 5 minutes later pt began vomiting a moderate amount of straw covered liquid. Pt was cleansed and linen was changed. Bowel sounds present pt c/o pain around umbilicus region of abdomen. RN updated
--- NOTE | 2020-03-22 11:32 | RAD_ITS ---
STUDY: X-RAY - ABDOMEN/PELVIS REASON FOR EXAM: Male, 74 years old. ABDOMINAL PAIN, VOMITING TECHNIQUE: Single AP view of the abdomen / pelvis. COMPARISON: None. FINDINGS: Excluded lung bases. There is an unremarkable bowel gas pattern. There is no demonstrated free abdominal air. The visualized liver, spleen and kidneys are grossly normal in size and morphology. Normal soft tissue structures. There are degenerative changes of the lower lumbar spine and bilateral hips. RAD/Abd Inc Decub and/or Erect IMPRESSION: Nonobstructive bowel gas pattern. Electronically Signed: Remigio Alcocer MD (Brooks) at 13:34 EDT , Service support ,
[2020-03-22 14:01] VITALS: BP 159/93; PULSE 73; RESP 16; TEMP 36.1; O2SAT 97
[2020-03-22] MEDS: Bisacodyl 10 MG Suppository RECTAL (14:29)
--- NOTE | 2020-03-22 14:53 | CASEMGMT ---
Social Work Met with patient to complete initial assessment but pt requested SW to contact children. Inquired about whom is the primary contact, he stated any of them. Next of kin is listed as Pam - JORGE (Alyson) answered the phone. Inquired whom would be the primary contact - again she replied all of the children/in-laws are involved. Explained staff will only be contacting one person throughout the duration of patient's stay and the children can decide whom that will be and to notify nurse's station. DIL expressed understanding and will call back. Will continue to follow. Angelica Martin, SPLICING SUPERVISOR CORRECTIONAL PROGRAM SPECIALIST
--- NOTE | 2020-03-22 16:47 | NURSING ---
Pt had prune juice and butter this shift, PRN suppository and SSE with no results so far this shift. Pt is on liquid diet but still states he is constipated.
[2020-03-22 22:10] VITALS: PULSE 88; RESP 16; O2SAT 96
[2020-03-22] MEDS: Atorvastatin Calcium 40 MG Tablet PO (22:10)
[2020-03-22] MEDS: Tamsulosin HCl 0.4 MG Capsule 0.8 MG PO (22:11)
--- NOTE | 2020-03-22 23:06 | NURSING ---
Patient had a large emesis while nurse was at bedside. Emesis was a peach color patient was eating a magic cup and the flavor was peach cream. The patient allowed this nurse to suction mouth during this time didn't get anything from suctioning. Patient continuing to have a large amount of yellow drainage from left nostril. RN aware.
[2020-03-23 03:56] VITALS: BP 154/92; PULSE 88; RESP 18; TEMP 36.9; O2SAT 97
[2020-03-23] MEDS: Pantoprazole Sodium 40 MG Tablet PO ×2 (06:02→17:36)
[2020-03-23] MEDS: Glucerna Shake 120 ML LIQUID PO ×3 (06:02→17:34)
[2020-03-23] MEDS: Losartan Potassium 100 MG Tablet PO (06:02)
[2020-03-23] MEDS: Polyethylene Glycol 3350 17 GM PACKET PO (06:08)
[2020-03-23 06:26] LABS: Bedside Glucose 233 mg/dL (70-110)
[2020-03-23] MEDS: Dronabinol 2.5 MG Capsule PO ×2 (06:29→17:34)
[2020-03-23] MEDS: Iron Polysaccharide Complex 150 MG CAPSULE PO (07:53)
[2020-03-23] MEDS: metFORMIN (XR) 500 MG Tablet PO (07:53)
[2020-03-23] MEDS: Acetaminophen 500 MG Tablet 1000 MG PO (09:31)
[2020-03-23 10:00] VITALS: PULSE 104; RESP 18; O2SAT 97
--- NOTE | 2020-03-23 11:51 | CASEMGMT ---
Social Work Patient's primary contact will be his son and secondary is his daughter. BRIAN CampbellW
[2020-03-23 14:47] VITALS: BP 128/69; PULSE 104; RESP 16; TEMP 36.7; O2SAT 97
--- NOTE | 2020-03-23 15:28 | NURSING ---
CT of head and Myelogram ordered for steady trickle of clear fluid from nostril. Pt continues to vomit throughout the day Victoria toure, Son updated on new orders.
--- NOTE | 2020-03-23 16:00 | RAD_ITS ---
STUDY: CT CISTERNOGRAM REASON FOR EXAM: Male, 74 years old. SPINAL FLUID LEAK CLINICAL HISTORY: Male, 74 years old. Rhinorrhea. History of head trauma. FLUOROSCOPY TIME (if supplied): (0:30) minutes/seconds CONSENT: The risks, benefits and alternatives to the procedure were explained to the patient, and the patient agreed to the procedure and signed the consent. SEDATION: STERILE BARRIER TECHNIQUE: The following sterile barrier precautions were used during the procedure: hand hygiene; use of 2% chlorhexidine aseptic; use of a cap, mask, sterile gown, sterile gloves, sterile full body drape, and a large sterile sheet. PROCEDURE/TECHNIQUE: The risks, benefits, and alternatives to the procedure were explained to patient, and the patient agreed to the procedure and signed a consent form for the procedure. A timeout was performed to confirm the patient''s identity, the type of procedure, to be performed and the site of entry. TECHNIQUE: Under fluoroscopic guidance using sterile technique and after infiltration of the skin and subcutis soft tissues with 10 mL lidocaine 1% a 22-gauge needle is introduced in the lumbar thecal sac at L3-4 then mL of VISIPAQUE 300 were injected in the thecal sac. 5 views of the lumbar spine were obtained. FINDINGS: The lumbar thecal sac appears normal in size and shape. The conus medullaris terminates at T12-L1. RAD/Cervical Myelogram IMPRESSION: Lumbar spine myelogram: The lumbar thecal sac appears normal in size and shape. The conus medullaris terminates at T12-L1. Cisternogram: The contrast dispersed in the subarachnoid spaces Electronically Signed: Lakshmi Garcia, at 20:11 EDT Tel , Service support ,
[2020-03-23] MEDS: Ondansetron ODT 4 MG Tablet PO (18:46)
--- NOTE | 2020-03-23 20:05 | NURSING ---
have spoken w/ radiology staff rahul on 3 seperate occassions since 1729 RE: reading of CT head and CT myelogram, ordered urgently in [facility] @ 1500-we still do not have results yet, it has been assigned to jerzy @ 195 and previously to dora sandoval, they assure this nurse that test is currently being read-dr montes de oca updated-pt continues to have small amount of continous leakage of clear fluid out of nares -a&o x3, pt c/o nausea but states it is improving since ODT mesfin-vss
--- NOTE | 2020-03-23 20:46 | NURSING ---
Addendum entered by Antonia Ferrera 03/23/20 20:53: Notified son of pt transfer to ED, he said he will be in to ED to be his father. Original Note: Dr. Ayala notified of ct results, he called in and wants pt transferred to ED for further eval. Report called to KADE Franks. Will notify pt and family.
--- NOTE | 2020-03-24 00:23 | NURSING ---
Patient just arrived back to the unit transferred by a hospital bed
[2020-03-24] MEDS: Amox/Clavulanate 875 MG Tablet PO ×3 (00:26→17:20)
[2020-03-24] MEDS: Tamsulosin HCl 0.4 MG Capsule 0.8 MG PO ×2 (00:28→19:58)
[2020-03-24] MEDS: Atorvastatin Calcium 40 MG Tablet PO ×2 (00:28→19:57)
[2020-03-24 04:37] VITALS: BP 156/85; PULSE 87; RESP 16; TEMP 36.7; O2SAT 96
[2020-03-24] MEDS: Pantoprazole Sodium 40 MG Tablet PO ×2 (05:16→17:20)
[2020-03-24] MEDS: Losartan Potassium 100 MG Tablet PO (05:16)
[2020-03-24] MEDS: Polyethylene Glycol 3350 17 GM PACKET PO (05:19)
--- NOTE | 2020-03-24 05:21 | NURSING ---
Patient has had two emesis since coming back from ER. The first emesis this nurse couldn't tell because patient used trash can and it had other things in it. The second emesis was clear and a small amount less than 30ml offered prn zofran and patient refused. This nurse assess bowel sounds hyperactive in all four quadrant, soft, and nontender. Patient had a bowel movement documented on 03/23/20. Given RTN mirlax this morning. This nurse asked patient if his stomach was bothering him or if he has been having any drainage in the back of the throat he stated no. Patient didn't want to talk much about what was causing him to have this emesis. Nurse explained to patient he has to be able to communicate and answer question in order for us to help him with these emesis episodes he's having. He shook his head and stated okay patient has been asking for ice cubes and water throughout the night mouth care before given fluid or ice. 240ml is patient has been given total. Left nostril continues to have clear drainage.
[2020-03-24 06:20] LABS: Bedside Glucose 265 mg/dL (70-110)
[2020-03-24] MEDS: Dronabinol 2.5 MG Capsule PO ×2 (07:48→17:19)
[2020-03-24] MEDS: Iron Polysaccharide Complex 150 MG CAPSULE PO (07:49)
[2020-03-24] MEDS: 0.9% Normal Saline 1,000 ML 75 ML IV ×2 (09:11→22:55)
[2020-03-24] MEDS: Insulin Lispro 100 UNIT/ML INSULN.PEN 7 UNIT SC (09:24)
[2020-03-24] MEDS: Lactulose 20 GM/30 ML UDC 200 GM RECTAL (09:44)
[2020-03-24 10:00] VITALS: PULSE 78; RESP 18; O2SAT 94
[2020-03-24] MEDS: Metoclopramide 10 MG/2 ML Vial 5 MG IV ×2 (11:41→19:49)
[2020-03-24] MEDS: Glucerna Shake 120 ML LIQUID PO ×3 (11:41→19:55)
[2020-03-24 13:51] VITALS: BP 140/75; PULSE 78; RESP 18; TEMP 36.8; O2SAT 94
[2020-03-24] MEDS: Senna/Docusate Sodium 1 Tablet PO (17:20)
--- NOTE | 2020-03-24 18:46 | NURSING ---
Lactulose enema given per order pt had medium formed results
[2020-03-24] MEDS: 0.9% Saline Lock 10 ML Syringe IV ×2 (20:16→22:53)
[2020-03-25] MEDS: 0.9% Saline Lock 10 ML Syringe IV ×3 (00:27→12:08)
[2020-03-25] MEDS: Metoclopramide 10 MG/2 ML Vial 5 MG IV ×2 (00:28→05:58)
[2020-03-25 05:00] VITALS: BP 173/94; PULSE 85; RESP 16; TEMP 36.6; O2SAT 94
[2020-03-25] MEDS: Amox/Clavulanate 875 MG Tablet PO ×2 (05:58→18:22)
[2020-03-25] MEDS: Polyethylene Glycol 3350 17 GM PACKET PO (05:58)
[2020-03-25] MEDS: Senna/Docusate Sodium 1 Tablet PO ×2 (05:58→18:25)
[2020-03-25] MEDS: Losartan Potassium 100 MG Tablet PO (05:58)
[2020-03-25] MEDS: Pantoprazole Sodium 40 MG Tablet PO ×2 (05:58→18:24)
[2020-03-25] MEDS: Glucerna Shake 120 ML LIQUID PO ×4 (05:59→21:16)
[2020-03-25] MEDS: Dronabinol 2.5 MG Capsule PO ×2 (06:05→18:21)
[2020-03-25 06:31] LABS: Bedside Glucose 248 mg/dL (70-110)
--- NOTE | 2020-03-25 07:16 | PCA ---
pt called out through the call light system, i answered pt's light he said he needed someone back in his room, nurse aidkathie Page and i went back to see how we could assist patient in his needs. as we were entering the room pt appeared to be vomiting in the trashcan walked into see if pt was alright he explained that he needed his gown, blankets, sheets changed, nurse aidkathie Page and i washed pt up an changed pt's gown, and bed linens. disinfected the floor where vomit was visible. vomit was also visible to staff in the trash can and floor of patients room vomit appeared to be clear but with a mucus consistency. reported to RN Iliana on duty at time of incident
[2020-03-25] MEDS: Aspirin E.C. 81 MG Tablet PO (08:48)
[2020-03-25] MEDS: Iron Polysaccharide Complex 150 MG CAPSULE PO (08:48)
[2020-03-25 09:05] LABS: Anion Gap 6 (5-15); BUN 16 mg/dL (7-18); BUN/Creat Ratio 16.4 RATIO (10-20); Calcium,Total 8.7 mg/dL (8.5-10.1); Chloride 106 mmol/L (98-107); Creatinine, Serum 0.97 mg/dL (0.70-1.30); EST Glomerular Filtration Rate 80 mL/min (>60); Est Glom Filt Rate - Afr Amer 96 mL/min (>60); Glucose 249 mg/dL (74-106); Potassium 3.3 mmol/L (3.5-5.1); Sodium Level 138 mmol/L (136-145)
--- NOTE | 2020-03-25 10:21 | NURSING ---
MAXIMINO UPDATED ON PT.
[2020-03-25] MEDS: 0.9% Normal Saline 1,000 ML 75 ML IV (12:07)
[2020-03-25] MEDS: Metoclopramide 10 MG/2 ML Vial IV ×3 (12:07→23:13)
[2020-03-25 14:15] VITALS: PULSE 60; RESP 18; O2SAT 95
--- NOTE | 2020-03-25 14:21 | NURSING ---
had pt clean mouth out with mouth swabs. pt thankful.
[2020-03-25 14:26] VITALS: BP 158/75; PULSE 91; RESP 17; TEMP 36.6; O2SAT 93
[2020-03-25] MEDS: Atorvastatin Calcium 40 MG Tablet PO (21:16)
[2020-03-25] MEDS: Tamsulosin HCl 0.4 MG Capsule 0.8 MG PO (21:16)
[2020-03-26] MEDS: 0.9% Normal Saline 1,000 ML 75 ML IV ×2 (01:28→14:55)
[2020-03-26 05:00] VITALS: BP 154/105; PULSE 97; RESP 18; TEMP 36.7; O2SAT 94
[2020-03-26] MEDS: Pantoprazole Sodium 40 MG Tablet PO ×2 (05:43→18:27)
[2020-03-26] MEDS: Glucerna Shake 120 ML LIQUID PO ×3 (05:43→21:09)
[2020-03-26] MEDS: Senna/Docusate Sodium 1 Tablet PO ×2 (05:43→18:28)
[2020-03-26] MEDS: Losartan Potassium 100 MG Tablet PO (05:43)
[2020-03-26] MEDS: Amox/Clavulanate 875 MG Tablet PO ×2 (05:43→18:27)
[2020-03-26] MEDS: Polyethylene Glycol 3350 17 GM PACKET PO (05:43)
[2020-03-26] MEDS: Menthol/Lanolin/Calamine/Znox 113 GM Tube 1 APPLIC TOPICAL ×2 (05:44→21:10)
[2020-03-26 06:21] LABS: Bedside Glucose 240 mg/dL (70-110)
[2020-03-26] MEDS: Metoclopramide 10 MG/2 ML Vial IV ×3 (06:40→18:40)
[2020-03-26] MEDS: Dronabinol 2.5 MG Capsule PO ×2 (07:58→16:52)
[2020-03-26] MEDS: Aspirin E.C. 81 MG Tablet PO (07:58)
[2020-03-26] MEDS: Iron Polysaccharide Complex 150 MG CAPSULE PO (07:59)
[2020-03-26] MEDS: metFORMIN (XR) 500 MG Tablet PO ×2 (08:09→16:53)
--- NOTE | 2020-03-26 11:57 | NURSING ---
Addendum entered by Pamela Wu 03/26/20 12:00: DR GAVIRIA NOTIFIED, NEW ORDER FOR NYSTATIN S/S & PRN BMX Original Note: PT COMPLAINING OF MOUTH BEING SORE AND HURTS. REFUSING TO EAT. WHITE BUMPS IN SIDE MOUTH. RN TO ROOM.
[2020-03-26 12:00] LABS: Bedside Glucose 229 mg/dL (70-110)
[2020-03-26] MEDS: NYSTATIN 500,000 UNIT/5 ML UDC 500000 UNIT PO ×3 (12:59→21:09)
[2020-03-26 14:22] VITALS: BP 155/85; PULSE 100; RESP 17; TEMP 36.4; O2SAT 97
--- NOTE | 2020-03-26 14:59 | NURSING ---
FAMILY CALLED IN AND TALKED TO RN.
[2020-03-26 17:25] LABS: Bedside Glucose 187 mg/dL (70-110)
[2020-03-26] MEDS: BMX LIQUID 180 ML PO (18:30)
--- NOTE | 2020-03-26 18:35 | NURSING ---
pt has refused all meals today due to sores in mouth. prn and scheduled meds given for mouth sores. lunch and supper insulins held. rn aware
[2020-03-26] MEDS: Atorvastatin Calcium 40 MG Tablet PO (21:09)
[2020-03-26] MEDS: Tamsulosin HCl 0.4 MG Capsule 0.8 MG PO (21:10)
[2020-03-26 22:16] LABS: Bedside Glucose 204 mg/dL (70-110)
[2020-03-27] MEDS: Metoclopramide 10 MG/2 ML Vial IV ×4 (00:16→18:26)
[2020-03-27] MEDS: 0.9% Normal Saline 1,000 ML 75 ML IV ×2 (04:20→18:11)
[2020-03-27 05:00] VITALS: BP 167/103; PULSE 85; RESP 18; TEMP 36.7; O2SAT 93
[2020-03-27] MEDS: Pantoprazole Sodium 40 MG Tablet PO ×2 (05:32→17:13)
[2020-03-27] MEDS: Losartan Potassium 100 MG Tablet PO (05:32)
[2020-03-27] MEDS: Senna/Docusate Sodium 1 Tablet PO ×2 (05:32→17:13)
[2020-03-27] MEDS: Menthol/Lanolin/Calamine/Znox 113 GM Tube 1 APPLIC TOPICAL ×2 (05:32→21:29)
[2020-03-27] MEDS: Amox/Clavulanate 875 MG Tablet PO ×2 (05:32→17:13)
[2020-03-27] MEDS: Polyethylene Glycol 3350 17 GM PACKET PO (05:33)
[2020-03-27] MEDS: NYSTATIN 500,000 UNIT/5 ML UDC 500000 UNIT PO ×3 (05:33→19:04)
[2020-03-27] MEDS: Glucerna Shake 120 ML LIQUID PO ×3 (05:38→21:26)
[2020-03-27 06:26] LABS: Bedside Glucose 206 mg/dL (70-110)
[2020-03-27 06:28] LABS: Anion Gap 7 (5-15); BUN 8 mg/dL (7-18); BUN/Creat Ratio 9.5 RATIO (10-20); Calcium,Total 8.7 mg/dL (8.5-10.1); Chloride 105 mmol/L (98-107); Creatinine, Serum 0.84 mg/dL (0.70-1.30); EST Glomerular Filtration Rate 94 mL/min (>60); Est Glom Filt Rate - Afr Amer 114 mL/min (>60); Estimated Creatinine Clearance 69.41 ml/min; Glucose 206 mg/dL (74-106); Potassium 3.3 mmol/L (3.5-5.1); Sodium Level 138 mmol/L (136-145)
[2020-03-27] MEDS: Insulin Lispro 100 UNIT/ML INSULN.PEN SC ×2 (08:08→11:43)
[2020-03-27] MEDS: Iron Polysaccharide Complex 150 MG CAPSULE PO (08:08)
[2020-03-27] MEDS: Aspirin E.C. 81 MG Tablet PO (08:08)
[2020-03-27] MEDS: metFORMIN (XR) 500 MG Tablet PO ×2 (08:09→17:12)
[2020-03-27] MEDS: Dronabinol 2.5 MG Capsule PO ×2 (08:13→17:12)
[2020-03-27 11:01] LABS: Bedside Glucose 208 mg/dL (70-110)
[2020-03-27] MEDS: 0.9% Saline Lock 10 ML Syringe IV (12:06)
[2020-03-27 13:07] VITALS: BP 143/98; PULSE 88; RESP 16; TEMP 36.5; O2SAT 94
[2020-03-27 16:11] LABS: Bedside Glucose 134 mg/dL (70-110)
[2020-03-27] MEDS: Tamsulosin HCl 0.4 MG Capsule 0.8 MG PO (21:25)
[2020-03-27] MEDS: Atorvastatin Calcium 40 MG Tablet PO (21:26)
[2020-03-27 21:41] LABS: Bedside Glucose 182 mg/dL (70-110)
[2020-03-27] MEDS: Ondansetron ODT 4 MG Tablet PO (22:22)
--- NOTE | 2020-03-27 22:22 | NURSING ---
Patient had several emesis in the last hour. Patient refused to be suctioned. PRN medication administered. Cleaned patient and changed bedding. Patient in position of comfort at this time.
[2020-03-28] MEDS: 0.9% Saline Lock 10 ML Syringe IV ×2 (00:28→06:58)
[2020-03-28] MEDS: Metoclopramide 10 MG/2 ML Vial IV ×4 (00:28→18:15)
[2020-03-28 01:02] VITALS: PULSE 89; RESP 16; O2SAT 97
[2020-03-28 06:08] VITALS: BP 159/103; PULSE 83; RESP 16; TEMP 36.4; O2SAT 96
[2020-03-28] MEDS: Senna/Docusate Sodium 1 Tablet PO ×2 (06:09→17:08)
[2020-03-28] MEDS: Amox/Clavulanate 875 MG Tablet PO ×2 (06:09→17:07)
[2020-03-28] MEDS: NYSTATIN 500,000 UNIT/5 ML UDC 500000 UNIT PO ×4 (06:09→21:34)
[2020-03-28] MEDS: Pantoprazole Sodium 40 MG Tablet PO ×2 (06:09→17:07)
[2020-03-28] MEDS: Losartan Potassium 100 MG Tablet PO (06:09)
[2020-03-28] MEDS: Polyethylene Glycol 3350 17 GM PACKET PO (06:10)
[2020-03-28] MEDS: Glucerna Shake 120 ML LIQUID PO ×3 (06:14→21:34)
[2020-03-28] MEDS: Menthol/Lanolin/Calamine/Znox 113 GM Tube 1 APPLIC TOPICAL ×2 (06:17→22:47)
[2020-03-28 06:52] VITALS: BP 142/97; PULSE 92
[2020-03-28] MEDS: 0.9% Normal Saline 1,000 ML 75 ML IV ×2 (06:52→20:26)
[2020-03-28 07:42] LABS: Bedside Glucose 201 mg/dL (70-110)
[2020-03-28] MEDS: Aspirin E.C. 81 MG Tablet PO (08:05)
[2020-03-28] MEDS: metFORMIN (XR) 500 MG Tablet PO ×2 (08:05→17:06)
[2020-03-28] MEDS: Iron Polysaccharide Complex 150 MG CAPSULE PO (08:05)
[2020-03-28] MEDS: Dronabinol 2.5 MG Capsule PO ×2 (08:08→17:04)
[2020-03-28] MEDS: Insulin Lispro 100 UNIT/ML INSULN.PEN SC ×2 (08:16→17:21)
[2020-03-28] MEDS: Acyclovir 200 MG Capsule 400 MG PO ×4 (10:21→21:34)
[2020-03-28] MEDS: BMX LIQUID 180 ML PO ×2 (11:10→21:33)
[2020-03-28 12:11] LABS: Bedside Glucose 185 mg/dL (70-110)
[2020-03-28 13:32] VITALS: BP 132/81; PULSE 94; RESP 17; TEMP 36.6; O2SAT 95
[2020-03-28 14:15] VITALS: PULSE 74; RESP 18; O2SAT 94
--- NOTE | 2020-03-28 14:40 | NURSING ---
PT HAS REDNESS,CRUSTY, YELLOW/PUS LOOKING AREAS ON PENIS. PT STATED IS SORE. HAD RN LOOK. WILL BE NOTIFIED.
[2020-03-28 16:15] LABS: Bedside Glucose 202 mg/dL (70-110)
[2020-03-28 21:21] LABS: Bedside Glucose 158 mg/dL (70-110)
[2020-03-28] MEDS: Atorvastatin Calcium 40 MG Tablet PO (21:34)
[2020-03-28] MEDS: Tamsulosin HCl 0.4 MG Capsule 0.8 MG PO (21:34)
[2020-03-29] MEDS: 0.9% Saline Lock 10 ML Syringe IV ×2 (00:31→07:01)
[2020-03-29] MEDS: Metoclopramide 10 MG/2 ML Vial IV ×3 (00:35→12:02)
[2020-03-29 05:46] VITALS: BP 160/99; PULSE 92; RESP 16; TEMP 36.8; O2SAT 97
[2020-03-29] MEDS: Polyethylene Glycol 3350 17 GM PACKET PO (05:48)
[2020-03-29] MEDS: Glucerna Shake 120 ML LIQUID PO ×2 (05:50→11:43)
[2020-03-29] MEDS: Pantoprazole Sodium 40 MG Tablet PO (05:51)
[2020-03-29] MEDS: Losartan Potassium 100 MG Tablet PO (05:51)
[2020-03-29] MEDS: NYSTATIN 500,000 UNIT/5 ML UDC 500000 UNIT PO ×2 (05:52→11:40)
[2020-03-29] MEDS: Senna/Docusate Sodium 1 Tablet PO (05:52)
[2020-03-29] MEDS: Acyclovir 200 MG Capsule 400 MG PO ×3 (05:52→13:12)
[2020-03-29] MEDS: Amox/Clavulanate 875 MG Tablet PO (05:53)
[2020-03-29 05:56] LABS: Absolute Lymphocyte Count 1.73 X10^3/uL (0.83-4.51); Absolute Neutrophil Count 8.4 X10^3/uL (2.0-7.7); Basophil# 0.04 X10^3/uL; Basophil% 0.4 % (0-1); Eosinophil# 0.08 X10^3/uL; Eosinophils% 0.7 % (0-5); Hemoglobin 11.2 g/dL (13.0-16.5); Lymphocyte # 1.73 X10^3/ul (4.0); Lymphocyte % 15.6 % (19-41); Mean Corpuscular Hgb 27.5 pg (27.0-32.0); Mean Platelet Vol. 9.1 fl (6.2-12.0); Monocyte# 0.73 X10^3/uL; Monocyte% 6.6 % (0-10); NRBC Flagged by Analyzer 0 % (0-5); Neutrophil # 8.42 X10^3/uL (2.7-7.7); Neutrophil % 75.7 % (47-70); Platelet Count 309 K/mm3 (150-450); RBC Distribution Width CV 13.7 % (11.6-14.6); RBC Distribution Width SD 42.7 fl (35.1-43.9); Red Blood Count 4.07 M/mm3 (4.6-6.2); White Blood Count 11.1 K/mm3 (4.4-11.0)
[2020-03-29] MEDS: Menthol/Lanolin/Calamine/Znox 113 GM Tube 1 APPLIC TOPICAL (05:56)
[2020-03-29 06:21] LABS: Bedside Glucose 201 mg/dL (70-110)
[2020-03-29 06:25] LABS: BUN 9 mg/dL (7-18); BUN/Creat Ratio 8.8 RATIO (10-20); Chloride 107 mmol/L (98-107); Creatinine, Serum 1.02 mg/dL (0.70-1.30); EST Glomerular Filtration Rate 76 mL/min (>60); Est Glom Filt Rate - Afr Amer 91 mL/min (>60); Estimated Creatinine Clearance 55.88 ml/min; Glucose 188 mg/dL (74-106); Potassium 3.4 mmol/L (3.5-5.1); Sodium Level 140 mmol/L (136-145)
[2020-03-29 06:26] LABS: Anion Gap 9 (5-15)
[2020-03-29] MEDS: Iron Polysaccharide Complex 150 MG CAPSULE PO (07:53)
[2020-03-29] MEDS: Aspirin E.C. 81 MG Tablet PO (07:53)
[2020-03-29] MEDS: metFORMIN (XR) 500 MG Tablet PO (07:53)
[2020-03-29] MEDS: Dronabinol 2.5 MG Capsule PO (07:56)
[2020-03-29] MEDS: Insulin Lispro 100 UNIT/ML INSULN.PEN SC ×2 (07:57→11:44)
[2020-03-29] MEDS: Tuberculin,Purif.prot.deriv. 50 TU/ML Vial 5 ML ID (09:24)
[2020-03-29] MEDS: 0.9% Normal Saline 1,000 ML 75 ML IV (10:00)
[2020-03-29 11:15] LABS: Bedside Glucose 186 mg/dL (70-110)
--- NOTE | 2020-03-29 13:18 | CASEMGMT ---
Social Work IDT met with patient and all 4 children via conference call for care plan meeting. Discussed patient's progress in therapy. Pt is SBA for bed mobility, CGA for transfers, ambulating CGA with FWW 100 ft, SBA for grooming, SBA/CGA for bathing, CGA for UE and LE dressing, CGA for toileting, CGA for toilet tx. Pt is on a nectar thick liquid only diet, per pt request. ST has trialed upgrade in textures but pt does not want to upgrade due to pain. ST continuing to work on oropharyngeal exercises although it requires max cues. Pt is on FFWP so he can enjoy ice cubes. Pt has had emesis' daily since admission - thus far today no emesis. Pt has been started on IV Reglan. Pt's intake is poor d/t emesis, but is receiving Glucerna shake, magic cup ice cream. Pt is out of room isolation 04/04. Explained Medicare benefit. Pt will return home with son and DIL, no steps to navigate. Pt and family want pt DC'd however, all agree with IDT recommendations that pt must not have emesis', off of IVS and be medically stable prior to returning home. Will continue to follow. Angelica Martin, PIPE COVERING MOLDER JUNIOR PROJECT MANAGER
--- NOTE | 2020-03-29 13:30 | NURSING ---
PT ASKED FOR NURSE. PT STATED TO THIS NURSE HE WANT TO GO HOME NOW! This nurse explained to pt why he was here,pt stated he knows and wants to go home. reported to haydensocial work professor.
[2020-03-29 13:51] VITALS: BP 150/96; PULSE 93; RESP 16; TEMP 36.7; O2SAT 99
--- NOTE | 2020-03-29 13:58 | NURSING ---
PT WILL NOT STAY IN RECLINER OR IN BED,KEEPS JUMPING UP AND DOWN STATING HE WANTS TO GO HOME. THIS NURSE PUT PT IN RECLINER TO DOOR WAY AND SITTING WITH PT DUE TO PT REFUSING TO STAY IN RECLINER. PT CONTINUES TO SAY I GO HOME AND TAKE CARE OF MY SELF. THIS NURSE EXPLAINED TO PT THAT THE MINUTE CLERK FOR BASIC TRAFFIC WILL COME SEE HIM SOON SHE CAN. PT STATED ME KNOW LISTEN TO TALK WANT TO GO HOME NOW. RN AWARE.
[2020-03-29 15:09] VITALS: PULSE 92; RESP 18; O2SAT 96
--- NOTE | 2020-03-29 15:27 | NURSING ---
PT CONTINUES TO GET UP AND DOWN IN RECLINER. VERY RESTLESS. KIEARNBLOWER OPERATOR HAS TALKED TO PT AND PT STATES HES GOING HOME. FAMILY HAS BEEN CALLED.
--- NOTE | 2020-03-29 15:59 | CASEMGMT ---
Social Work Notified by nursing pt adamant about discharging home. Spoke with pt - pt in recliner in doorway with ELIGIBILITY MANAGER sitting 1:1 with pt. pt very agitated and keeps repeating he wants to go home. Reiterated with pt that he has had emesis daily - today pt is receiving IV Reglan and not having emesis and IDT would like pt to remain to ensure medically stable. Pt remains agitated, standing up in chair to walk away - SW asked pt o remain seated - pt cooperative. SW offered to see how pt does the rest of today, if no emesis, agree to DC tomorrow - pt declined, he wants to DC today. SW and nursing attempted to contact all children listed - no answer. Pt initially cooperative with SW and agreed to wait to hear from children, however, every several minutes, pt stands up in chair and gets increasingly agitated. SW asked pt to remain seated, awaiting to hear from children - pt initially cooperative with SW, but then insisted on SW calling again. ABIMAEL called with pt, dtr answered, updated dtr. Pt and dtr discuss back and forth - dtr inquires about visiting pt - SW explained no visitation. Dtr ultimately agrees to transport pt home today. ABIMAEL stated the needs notified to decide AMA or proper discharge. Spoke with Dr. Ayala, explained situation, agrees pt could benefit from remaining to ensure medically stable, however, wants [facility] so agrees to not send AMA. ABIMAEL notified pt and dtr. ABIMAEL ordered [facility]. Pt denies therapy needs. SOC 03/30. Plan: DC home 03/29 with [facility]. Angelica Martin, BRIAN OTERO
--- NOTE | 2020-03-29 16:21 | NURSING ---
PT VERY IMPATENT AND KEEPS CALLING FAMILY TO HURRY AND GET HIM. EXPLAINED TO PT FAMILY WILL BE HERE AND WE ARE WAITING ON PAPER WORK TO D/C.
--- NOTE | 2020-03-29 17:45 | NURSING ---
PT REFUSED 16:30,1700 AND 1800 MEDS.
--- NOTE | 2020-03-29 17:47 | NURSING ---
PT REFUSED SUPPER.
--- NOTE | 2020-03-29 17:50 | NURSING ---
IV REMOVED FROM RIGHT HAND. PT TOLERATED WELL.
--- NOTE | 2020-03-29 17:59 | PCM.DC ---
- Discharge Diagnoses Current Active Problems: Current Active and Chronic Problems (Last Reviewed 01/18/20 @ 15:[address] Imani Childers MD) Fall (Acute) Nasal fracture (Acute) Maxillary fracture (Acute) Nasal laceration (Acute) Laceration of mouth (Acute) Depression (Chronic) Anxiety (Chronic) Insomnia (Chronic) You will use the following diet at home:: No restrictions, Regular Your food should be the consistency of: Regular Your liquids should be the consistency of: Regular/Thin Discharge Activity: Return to Normal Activity, May Shower, Use Walker Weight Bearing Status: Weight bearing as tolerated Call your doctor if you observe: Fever of 101 or Higher, Inability to urinate, Inability to have a bowel movement, Chest pain, Uncontrolled pain Allergies/Adverse Reactions: Allergies No Known Allergies Allergy (Verified 03/23/20 21:09) Medications to take at Discharge aspirin 81 mg tablet,delayed release 81 mg PO DAILY@0800 02/10/19 Atorvastatin Calcium 40 mg PO QHS #0 11/15/19 Tamsulosin HCl [Flomax] 0.8 mg PO QHS 03/21/20 metFORMIN (XR) [Glucophage Xr] 500 mg PO BID 03/21/20 Acetaminophen [Tylenol] 1,000 mg PO Q6H PRN PRN tablet 03/29/20 Acyclovir [Zovirax] 400 mg PO 5X/DAY #20 cap 03/29/20 Amox/Clavulanate Tablet [Augmentin Tablet] 875 mg PO BID #2 tab 03/29/20 Iron Polysaccharide Complex [Ferrex 150] 150 mg PO DAILYCM #30 cap 03/29/20 Losartan Potassium [Cozaar] 100 mg PO DAILY #30 tab 03/29/20 Menthol/Lanolin/Calamine/Znox [Calmoseptine Ointment] 1 applic TOPICAL 0600,2200 tube 03/29/20 Ondansetron [Zofran Odt] 4 mg PO Q6H PRN PRN #120 tab 03/29/20 Pantoprazole Sodium [Protonix] 40 mg PO BID #60 tab 03/29/20 Potassium Chloride [K-Dur] 20 meq PO BIDCM #60 tab 03/29/20 The following prescriptions were given: Amox/Clavulanate Tablet [Augmentin Tablet] 875 mg PO BID #2 tab Transmission Status: Pending to [place] [address] Losartan Potassium [Cozaar] 100 mg PO DAILY #30 tab Transmission Status: Pending to [place] [address] Iron Polysaccharide Complex [Ferrex 150] 150 mg PO DAILYCM #30 cap Transmission Status: Pending to [place] [address] Potassium Chloride [K-Dur] 20 meq PO BIDCM #60 tab Transmission Status: Pending to [facility] [id number] Pantoprazole Sodium [Protonix] 40 mg PO BID #60 tab Transmission Status: Pending to [place] [address] Ondansetron [Zofran Odt] 4 mg PO Q6H PRN PRN #120 tab PRN Reason: NAUSEA Transmission Status: Pending to [place] [address] Acyclovir [Zovirax] 400 mg PO 5X/DAY #20 cap Transmission Status: Pending to [place] [address] Primary Care Physician: Diamond Acevedo MD [Primary Care Provider] - Please follow up with your Primary Care Physician in: 1 week. Test Results: Test results from this visit will be discussed in further detail at your follow-up appointment, if applicable. Please Follow Up With: Dionte Guerrero When: 5 days Please Follow Up With: Diamond Acevedo MD
[2020-03-29 18:00] VITALS: BP 150/96; PULSE 92; RESP 18; TEMP 36.7; O2SAT 96
--- NOTE | 2020-03-29 18:00 | DS.PCM_ITS ---
Discharge Date and Diagnosis - Problem List Patient Problems: Active and Suspected Problems (Last Reviewed 01/18/20 @ 15:[address] Imani Childers MD) Fall (Acute) Nasal fracture (Acute) Maxillary fracture (Acute) Nasal laceration (Acute) Laceration of mouth (Acute) Date of Admission: 03/21/20 Date of Discharge: 03/29/20 - Primary Discharge Diagnosis Acute Problems: Active Problems (Last Reviewed 01/18/20 @ 15:[address] Imani Childers MD) Fall (Acute) Nasal fracture (Acute) Maxillary fracture (Acute) Nasal laceration (Acute) Laceration of mouth (Acute) - Secondary Discharge Diagnosis Chronic Problems: Chronic Problems (Last Reviewed 01/18/20 @ 15:[address] Imani Childers MD) Depression (Chronic) Anxiety (Chronic) Insomnia (Chronic) History of loop recorder (Chronic 11/22/19) HTN (hypertension) (Chronic) HLD (hyperlipidemia) (Chronic) Anxiety and depression (Chronic) He is still depressed on a very small dose of Wellbutrin Ischemic cerebrovascular disease (Chronic) moderate white matter diffuse disease on MRI and CT of the brain with moderate ventricular dilatation Cerebral atrophy (Chronic) moderate with ventricular dilatation CVA (cerebral vascular accident) (Chronic) BPH (benign prostatic hyperplasia) (Chronic) Diabetes mellitus (Chronic) newly diagnosed, type II Ventral hernia (Chronic) Hospital Course and Treatment Imaging Results: 03/23/20 09:00 Diet: Full Liquid Food consistency:: N/A - Liquid only Liquid Consistency:: [place]/Mildly Thick Type of Dietary Supplement:: Magic Cup Dessert Is pt able to select menu?: Yes Diet Comments: magic cup every meal Clinical Impression(s) from Imaging Studies Abdomen X-Ray 03/22/20 11:32 IMPRESSION: Nonobstructive bowel gas pattern. Electronically Signed: Remigio Alcocer MD ([place]) at 13:34 EDT , Service support , Myelogram,Cervical Spine 03/23/20 16:00 IMPRESSION: Lumbar spine myelogram: The lumbar thecal sac appears normal in size and shape. The conus medullaris terminates at T12-L1. Cisternogram: The contrast dispersed in the subarachnoid spaces Electronically Signed: Lakshmi Garcia, at 20:11 EDT Tel , Service support , Labs (Last 48 Hours) 03/27/20 03/28/20 03/28/20 21:33 06:14 12:06 WBC RBC Hgb Hct MCV MCH MCHC RDW Std Deviation RDW Coeff of Brunilda Plt Count MPV Immature Gran % (Auto) Neut % (Auto) Lymph % (Auto) Gregg % (Auto) Eos % (Auto) Baso % (Auto) Absolute Neuts (auto) Absolute Lymphs (auto) Nucleated RBC % Sodium Potassium Chloride Carbon Dioxide Anion Gap BUN Creatinine Estim Creat Clear Calc Est GFR (MDRD) Af Amer Est GFR (MDRD) Non-Af BUN/Creatinine Ratio Glucose Calcium POC Glucose 182 H 201 H 185 H 03/28/20 03/28/20 03/29/20 15:54 21:02 05:05 WBC 11.1 H RBC 4.07 L Hgb 11.2 L Hct 35.0 L MCV 86.0 MCH 27.5 MCHC 32.0 RDW Std Deviation 42.7 RDW Coeff of Brunilda 13.7 Plt Count 309 MPV 9.1 Immature Gran % (Auto) 1.000 H Neut % (Auto) 75.7 H Lymph % (Auto) 15.6 L Gregg % (Auto) 6.6 Eos % (Auto) 0.7 Baso % (Auto) 0.4 Absolute Neuts (auto) 8.4 H Absolute Lymphs (auto) 1.73 Nucleated RBC % 0 Sodium Potassium Chloride Carbon Dioxide Anion Gap BUN Creatinine Estim Creat Clear Calc Est GFR (MDRD) Af Amer Est GFR (MDRD) Non-Af BUN/Creatinine Ratio Glucose Calcium POC Glucose 202 H 158 H 03/29/20 03/29/20 03/29/20 05:05 06:05 11:09 WBC RBC Hgb Hct MCV MCH MCHC RDW Std Deviation RDW Coeff of Brunilda Plt Count MPV Immature Gran % (Auto) Neut % (Auto) Lymph % (Auto) Gregg % (Auto) Eos % (Auto) Baso % (Auto) Absolute Neuts (auto) Absolute Lymphs (auto) Nucleated RBC % Sodium 140 Potassium 3.4 L Chloride 107 Carbon Dioxide 24.0 Anion Gap 9 BUN 9 Creatinine 1.02 Estim Creat Clear Calc 55.88 Est GFR (MDRD) Af Amer 91 Est GFR (MDRD) Non-Af 76 BUN/Creatinine Ratio 8.8 L Glucose 188 H Calcium 9.0 POC Glucose 201 H 186 H Operations: None Procedures: None Summary of Care Provided: The patient is a 74 year old Male with below past medical history hospitalized for fall, facial trauma with uncontrolled bleeding requiring overnight intubation, blood transfusion, admitted to TCU with debility, here for rehabilitation, strengthening, prior to discharge home with family. On TCU, CSF rhinorrhea ruled out. On Augmentin for sinusitis. On Acyclovir for herpes simplex stomatitis. Discharge home with family, [facility] . Patient Problems: Active and Suspected Problems (Last Reviewed 01/18/20 @ 15:[address] Imani Childers MD) Fall (Acute) Nasal fracture (Acute) Maxillary fracture (Acute) Nasal laceration (Acute) Laceration of mouth (Acute) - Physical Exam Vitals/I&O's: Vital Signs Temp Pulse Resp BP Pulse Ox 98.1 F 92 18 150/96 H 96 03/29/20 13:51 03/29/20 15:09 03/29/20 15:09 03/29/20 13:51 03/29/20 15:09 Oxygen Delivery Method Room Air Weight: 63.134 kg Body Mass Index (BMI) 22.3 Finger Stick Blood Glucose 156 Intake and Output for Last 24 Hours 03/27/20 03/28/20 03/29/20 23:59 23:59 23:59 Intake Total 2480 / 2480 2311.25 / 2311.25 1899 Balance 2480 / 2480 2311.25 / 2311.25 1899 Laboratory Results 03/28/20 21:02: POC Glucose 158 H 03/29/20 05:05: WBC 11.1 H, RBC 4.07 L, Hgb 11.2 L, Hct 35.0 L, MCV 86.0, MCH 27.5, MCHC 32.0, RDW Std Deviation 42.7, RDW Coeff of Brunilda 13.7, Plt Count 309, MPV 9.1, Immature Gran % (Auto) 1.000 H, Neut % (Auto) 75.7 H, Lymph % (Auto) 15.6 L, Gregg % (Auto) 6.6, Eos % (Auto) 0.7, Baso % (Auto) 0.4, Absolute Neuts (auto) 8.4 H, Absolute Lymphs (auto) 1.73, Nucleated RBC % 0 03/29/20 05:05: Sodium 140, Potassium 3.4 L, Chloride 107, Carbon Dioxide 24.0, Anion Gap 9, BUN 9, Creatinine 1.02, Estim Creat Clear Calc 55.88, Est GFR (MDRD) Af Amer 91, Est GFR (MDRD) Non-Af 76, BUN/Creatinine Ratio 8.8 L, Glucose 188 H, Calcium 9.0 03/29/20 06:05: POC Glucose 201 H 03/29/20 11:09: POC Glucose 186 H Current Medications Acetaminophen (Tylenol) 1,000 mg PO Q6H PRN PRN PRN Reason: Pain Score 1-03/25 Last Admin: 03/23/20 09:31 Dose: 1,000 mg Documented by: Acyclovir (Acyclovir 200 Mg Capsule) 400 mg PO 5X/DAY [facility] Stop: 04/02/20 10:01 Last Admin: 03/29/20 17:33 Dose: Not Given Documented by: Amoxicillin/Clavulanate Potassium (Amox/Clavulanate 875 Mg Tablet) 875 mg PO BID [facility] Stop: 03/30/20 18:01 Last Admin: 03/29/20 17:33 Dose: Not Given Documented by: Aspirin (Ecotrin) 81 mg PO DAILY@0800 [facility] Last Admin: 03/29/20 07:53 Dose: 81 mg Documented by: Atorvastatin Calcium (Lipitor) 40 mg PO QHS [facility] Last Admin: 03/28/20 21:34 Dose: 40 mg Documented by: Bisacodyl (Dulcolax) 10 mg RECTAL DAILY PRN PRN Reason: Constipation Last Admin: 03/22/20 14:29 Dose: 10 mg Documented by: Calamine/Phenol (Calmoseptine Ointment) 1 applic TOPICAL 0600,2200 [facility]; Protocol Last Admin: 03/29/20 05:56 Dose: 1 applicatio Documented by: Dronabinol (Marinol) 2.5 mg PO BIDAC [facility] Last Admin: 03/29/20 17:32 Dose: Not Given Documented by: Sodium Chloride () 1,000 mls @ 75 mls/hr IV .[id number] [facility] Last Infusion: 03/29/20 17:12 Dose: 0 mls/hr Documented by: Insulin Human Lispro (Humalog Kwikpen (Bkc)) 5 unit SC TIDAC [facility] Last Admin: 03/29/20 17:32 Dose: Not Given Documented by: Lidocaine/Diphenhydr/Alum/Mg/Simeth () 5 ml PO Q3H PRN PRN PRN Reason: mouth soreness Last Admin: 03/28/20 21:33 Dose: 5 ml Documented by: Losartan Potassium (Cozaar) 100 mg PO DAILY [facility] Last Admin: 03/29/20 05:51 Dose: 100 mg Documented by: [facility] Last Admin: 03/29/20 17:33 Dose: Not Given Documented by: Metoclopramide HCl (Reglan) 10 mg IV Q6 [facility] Stop: 04/01/20 12:01 Last Admin: 03/29/20 12:02 Dose: 10 mg Documented by: Nutritional Formula (Lactose Free) (Glucerna Shake) 120 ml PO 4X/DAY [facility] Last Admin: 03/29/20 17:32 Dose: Not Given Documented by: Nystatin (Nystatin) 500,000 unit PO 4X/DAY [facility] Stop: 04/05/20 12:01 Last Admin: 03/29/20 17:33 Dose: Not Given Documented by: Ondansetron HCl (Zofran Odt) 4 mg PO Q6H PRN PRN PRN Reason: NAUSEA Last Admin: 03/27/20 22:22 Dose: 4 mg Documented by: Pantoprazole Sodium (Protonix) 40 mg PO BID [facility] Last Admin: 03/29/20 17:33 Dose: Not Given Documented by: Polyethylene Glycol (Miralax) 17 gm PO DAILY [facility] Last Admin: 03/29/20 05:48 Dose: 17 gm Documented by: Polysaccharide Iron Complex (Ferrex 150) [facility] Last Admin: 03/29/20 07:53 Dose: 150 mg Documented by: Potassium Chloride (K-Dur) [facility] Last Admin: 03/29/20 17:33 Dose: Not Given Documented by: Senna/Docusate Sodium (Senokot-S, Amelia-Colace) 1 tablet PO BID [facility] Last Admin: 03/29/20 17:33 Dose: Not Given Documented by: Sodium Chloride () 10 - 40 ml IV UD PRN PRN Reason: SALINE FLUSH Last Admin: 03/29/20 07:01 Dose: 10 ml Documented by: Tamsulosin HCl (Flomax) 0.8 mg PO QHS [facility] Last Admin: 03/28/20 21:34 Dose: 0.8 mg Documented by: Discharge Diet: No Restrictions Discharge Activity: Return to Normal Activity, May Shower, Use Walker Weight Bearing Status: Weight bearing as tolerated Call your doctor if you observe: Fever of 101 or Higher, Inability to urinate, Inability to have a bowel movement, Chest pain, Uncontrolled pain Home Medications: Medications to take at Discharge aspirin 81 mg tablet,delayed release 81 mg PO DAILY@0800 02/10/19 Atorvastatin Calcium 40 mg PO QHS #0 11/15/19 Tamsulosin HCl [Flomax] 0.8 mg PO QHS 03/21/20 metFORMIN (XR) [Glucophage Xr] 500 mg PO BID 03/21/20 Acetaminophen [Tylenol] 1,000 mg PO Q6H PRN PRN tablet 03/29/20 Acyclovir [Zovirax] 400 mg PO 5X/DAY #20 cap 03/29/20 Amox/Clavulanate Tablet [Augmentin Tablet] 875 mg PO BID #2 tab 03/29/20 Iron Polysaccharide Complex [Ferrex 150] 150 mg PO DAILYCM #30 cap 03/29/20 Losartan Potassium [Cozaar] 100 mg PO DAILY #30 tab 03/29/20 Menthol/Lanolin/Calamine/Znox [Calmoseptine Ointment] 1 applic TOPICAL 0600,2200 tube 03/29/20 Ondansetron [Zofran Odt] 4 mg PO Q6H PRN PRN #120 tab 03/29/20 Pantoprazole Sodium [Protonix] 40 mg PO BID #60 tab 03/29/20 Potassium Chloride [K-Dur] 20 meq PO BIDCM #60 tab 03/29/20 Following Prescriptions Were Given to Patient: Amox/Clavulanate Tablet [Augmentin Tablet] 875 mg PO BID #2 tab Transmission Status: Pending to [place] [address] Losartan Potassium [Cozaar] 100 mg PO DAILY #30 tab Transmission Status: Pending to [place] [address] Iron Polysaccharide Complex [Ferrex 150] 150 mg PO DAILYCM #30 cap Transmission Status: Pending to [place] [address] Potassium Chloride [K-Dur] 20 meq PO BIDCM #60 tab Transmission Status: Pending to [place] [address] Pantoprazole Sodium [Protonix] 40 mg PO BID #60 tab Transmission Status: Pending to [place] [address] Ondansetron [Zofran Odt] 4 mg PO Q6H PRN PRN #120 tab PRN Reason: NAUSEA Transmission Status: Pending to [place] [address] Acyclovir [Zovirax] 400 mg PO 5X/DAY #20 cap Transmission Status: Pending to [place] [address] Primary Care Physician: Diamond Acevedo MD [Primary Care Provider] - Please follow up with your Primary Care Physician in: 1 week. Please Follow Up With: Dionte Guerrero When: 5 days Please Follow Up With: Diamond Acevedo MD Disposition: Home with Home Health Minutes spent on discharge:: 35 Patient Condition:: Guarded Medical Necessity - Tobacco Use Smoking Status: Unknown if ever smoked Tobacco Use: Non-smoker Meaningful Use Info Meaningful Use Diagnoses (Choose all that apply): None applicable
--- NOTE | 2020-03-30 10:40 | CASEMGMT ---
Social Work Received call from [facility] that dtr took pt home with her to [place], which is not in their service area. Referred to [facility]. They can accept pt. Notified dtr. BRIAN Campbell
--- NOTE | 2020-03-31 09:10 | MDS.RN ---
Information for the mds was obtained from review of the clinical record, interview of resident, staff, and direct observation of resident's care.
== END 2020-03-29 18:33 | disposition home health service (06) | DRG 560 ==
PROVIDERS: Admitting Provider Family Medicine Geriatric Medicine; PCP Internal Medicine; Visit Provider Family Medicine Geriatric Medicine
DX: S02.401D Maxillary fracture, unspecified side, subsequent encounter for fracture with routine healing (principal); B00.2 Herpesviral gingivostomatitis and pharyngotonsillitis; S02.2XXD Fracture of nasal bones, subsequent encounter for fracture with routine healing; W18.30XD Fall on same level, unspecified, subsequent encounter; N40.0 Benign prostatic hyperplasia without lower urinary tract symptoms; E78.5 Hyperlipidemia, unspecified; E11.9 Type 2 diabetes mellitus without complications; Z23 Encounter for immunization; I10 Essential (primary) hypertension; F32.9 Major depressive disorder, single episode, unspecified; F41.9 Anxiety disorder, unspecified; S01.512D Laceration without foreign body of oral cavity, subsequent encounter; K21.9 Gastro-esophageal reflux disease without esophagitis; D50.9 Iron deficiency anemia, unspecified
CPT/HCPCS: 36415; 62302; 74019; 80048; 82962; 85025; 87635; 92507; 92526; 92610; 97110; 97116; 97162; 97166; 97530; 97535; 97802; G0009; J7030; Q9965; 90670; A4216; U0003

== ENCOUNTER → 2020-03-23 15:26 | Outpatient (CLI) | payer MEDICARE, OTHER, SELFPAY ==
[2020-03-21 19:43] VITALS: BMI 22.3
--- NOTE | 2020-03-23 16:00 | CT_ITS ---
STUDY: CT BRAIN WITH AND WITHOUT CONTRAST REASON FOR EXAM: Male, 74 years old. FALL. POSSIBLE CSF LEAK. RADIATION DOSAGE (If Supplied By Facility): CTDIvol = ( 44.99 ) mGy, DLP = ( 1760.94 ) mGycm TECHNIQUE: Transaxial CT imaging of the brain was performed pre and post intrathecal contrast administration. The examination was performed with intrathecal administration of 10 mL of VISIPAQUE 300. The patient is tilted with head down for 10 minutes before exam.. Individualized dose optimization techniques were used for this CT. COMPARISON: None. FINDINGS: Normal soft tissue structures. Small bony defects are seen in the anterior aspect of the cribriform plate of the ethmoid bone bilaterally. No definite contrast leak is demonstrated. There is mild cerebral atrophy with widening of the extra-axial spaces and ventricular dilatation. There are areas of decreased attenuation within the white matter tracts of the supratentorial brain, consistent with microvascular disease changes. 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 Normal brainstem. Normal cerebellum. There is no intracranial hemorrhage. There are no findings of an acute ischemic infarction. Normal visualized paranasal sinuses. CT/Brain/Head W/WO Contrast IMPRESSION: Small bony defects are seen in the anterior aspect of the cribriform plate of the ethmoid bone bilaterally. No definite contrast leak is demonstrated. Electronically Signed: Lakshmi Garcia, at 20:21 EDT Tel , Service support ,
== END ==
PROVIDERS: PCP Internal Medicine; Referring Provider Family Medicine Geriatric Medicine; Visit Provider Family Medicine Geriatric Medicine
CPT/HCPCS: 70470

== ENCOUNTER 2020-03-23 21:05 | Emergency (ER) | payer MEDICARE, OTHER, SELFPAY ==
[2020-03-21 19:43] VITALS: BMI 22.3
[2020-03-23 21:06] VITALS: BP 140/94; PULSE 79; RESP 16; TEMP 36.9; O2SAT 96; BMI 23.0
--- NOTE | 2020-03-23 22:10 | ED.VIS.GEN ---
History of Present Illness Chief Complaint: Other, Pain/Inj Informant: Patient, PCP Narrative: Patient is a 74-year-old male who presents to the emergency department from the TCU unit for concern for a CSF leak out of his left nostril. He had a fall on 03/18/2020 which caused facial fractures including cribriform plate fracture, maxillary fracture and nasal bone fracture. He actually was intubated at that time for airway protection due to the bleeding. He was extubated and transferred to the TCU 2 days ago. The patient states he has been having discharge of that nostril for the past 5 days. It is clear and bloody. He otherwise denies any headache, vision changes. No significant pain. He does not have any complaints at this time. He denies any significant facial pain. Past Medical History - Allergies and Home Meds Allergies/Adverse Reactions: Allergies No Known Allergies Allergy (Verified 03/23/20 21:09) Primary Care Physician: Diamond Acevedo MD [Primary Care Provider] - 2 Days Surgical History: tonsillectomy, - - Hemorrhoidectomy, Loop recorder implantation, bilateral knee arthroscopy, bilateral shoulder arthroplasty. Smoking Status: Unknown if ever smoked - Family History Paternal Family History: Family History (Last Reviewed 01/18/20 @ 15:[address] Imani Childers MD) Mother Myocardial infarction Family History: Reports: - - Patient denies any market maternal or paternal family history including heart disease, diabetes or cancer. Sibling Family History: Family History (Last Reviewed 01/18/20 @ 15:[address] Imani Childers MD) Mother Myocardial infarction Family History: Reports: - - bells palsy - brother Offspring Family History: Family History (Last Reviewed 01/18/20 @ 15:[address] Imani Childers MD) Mother Myocardial infarction Family History: Reports: - - he has a grandson who has had 3 strokes and is in his early 20's Maternal Family History: Family History (Last Reviewed 01/18/20 @ 15:[address] Imani Childers MD) Mother Myocardial infarction Family History: Reports: Heart Disease Review of Systems All systems negative except as indicated General: Denies: Chills, Fever, Sweats Eyes: Denies: Visual changes - bilaterally, Diplopia ENT: Reports: Rhinorrhea. Denies: Bilateral ear pain, Sore throat Cardiovascular: Denies: Chest pain, Palpitations Respiratory: Denies: Dyspnea, Cough, Dyspnea on exertion Gastrointestinal: Denies: Abdominal pain, Nausea, Vomiting, Diarrhea Genitourinary: Denies: Dysuria, Hematuria, Frequency Musculoskeletal: Denies: Back pain, Extremity Pain Skin: Denies: Rash, Wounds Neurological: Denies: Headache, Weakness, Numbness Physical Exam Vital Signs/Narrative: Vital Signs Temp Pulse Resp BP Pulse Ox 03/23/20 21:06 98.4 F 79 16 140/94 H 96 General: Well nourished, Well developed, No Acute Distress Head: Normocephalic, Trauma - Patient has significant old bruising on his face diffusely. Significant tenderness to frontal or maxillary sinus. There is a clear, thick, blood-tinged discharge from the left nose. No septal hematoma appreciated. No crepitus appreciated. Eyes: Perrl, EOMI ENT: Moist mucous membranes, No rhinorrhea Neck: Supple, Nontender Cardiovascular: Regular rate, Regular rhythm, No murmurs Respiratory: No distress, CTA bilaterally, Chest nontender Abdomen: Soft, Nontender, Nondistended, Normal bowel sounds Back: Nontender, Normal Inspection Extremities: Nontender, No edema Skin: Normal color, No rash Neurological: Alert, Oriented x3, Cranial nerves II-XII grossly intact, Normal Strength, Normal Sensation Psychological: Normal affect, Normal Mood Diagnostic/Tx/Re-eval - Medical Decision Making Patient presents to the emerge department after he was thought to have a CSF leak. He had facial trauma 5 days ago. He has [place] no complaints at this time. He did have a CT scan of his head prior to coming to the emerge department which did not show any definitive contrast leak. Since patient has absolutely no complaints and the discharge from the nostril is thick and not running like CSF he will be discharged. Low concern for CSF leak. Nothing to do for this at this time. The son came to bedside and states that the trauma surgeon told him that this discharge could last for a week or 2. They are requesting to be discharged back to the TCU. I believe this is appropriate. Warning signs and symptoms for which to return to the ED including developing any significant pain or developing any infectious symptoms are reviewed with him. They understand and are agreeable this plan. Patient discharged home in stable condition. ED Disposition - Plan for ED Patient: Disposition: Longterm Facility Diagnosis: Facial bone fracture, Nasal discharge Instructions: Facial Fracture Referrals: Diamond Acevedo MD [Primary Care Provider] - 2 Days
--- NOTE | 2020-03-23 23:18 | ED.RN ---
report called to esther
[2020-03-23 23:26] VITALS: PULSE 80; RESP 18; O2SAT 95
== END 2020-03-24 00:09 | disposition skilled nursing facility (03) ==
PROVIDERS: Emergency Provider Emergency Medicine; PCP Internal Medicine
DX: S02.2XXA Fracture of nasal bones, initial encounter for closed fracture (principal); X58.XXXA Exposure to other specified factors, initial encounter; Z79.82 Long term (current) use of aspirin
CPT/HCPCS: 70470; 99282

== ENCOUNTER 2021-05-23 01:22 | Emergency (ER) | payer MEDICARE, OTHER, SELFPAY ==
[2021-05-23 01:23] VITALS: BP 154/107; PULSE 96; RESP 16; TEMP 37.1; O2SAT 98; BMI 23.3
--- NOTE | 2021-05-23 02:00 | CT_ITS ---
EXAM: CT ABDOMEN AND PELVIS WITH INTRAVENOUS CONTRAST CLINICAL INDICATION: abd pain TECHNIQUE: Helically acquired images were obtained of the abdomen and pelvis with intravenous contrast. CTDI vol (mGy): 45 DLP vol (mGy-cm): [address] exam was performed using one or more of the following dose reduction techniques: automated exposure control, adjustment of the mA and/or kV according to patient size, and/or use of iterative reconstruction technique. This report was created using [employer] report generation technology. CONTRAST: IV 100mL Isovue-300 COMPARISON: None. FINDINGS: LOWER THORAX: Cardiomegaly without significant pericardial effusion Small hiatal hernia. Lung bases are clear. ABDOMEN: LIVER: Unremarkable. Homogeneous. No focal mass. GALLBLADDER AND BILE DUCTS: Unremarkable. No calcified gallstones. No gallbladder distention or wall edema. No intra- or extrahepatic biliary ductal dilation. PANCREAS: Unremarkable. No focal cystic or solid mass. SPLEEN: Unremarkable. Normal size without focal cystic or solid mass. ADRENALS: Unremarkable. No nodules. KIDNEYS AND URETERS: Unremarkable. Normal renal size and position. No hydronephrosis. STOMACH AND BOWEL: Small hiatal hernia suggested. Stool-filled colon cancer and constipation. No stomach or bowel distention. No focal inflammatory change. PELVIS: APPENDIX: No evidence of acute appendicitis. BLADDER: Unremarkable. REPRODUCTIVE: Unremarkable as visualized. No mass. ABDOMEN and PELVIS: INTRAPERITONEAL SPACE: Unremarkable. No ascites or other fluid collection. No free air. BONES/JOINTS: Unremarkable. No suspicious lytic or blastic abnormality. SOFT TISSUES: Fat-containing supraumbilical hernia. VASCULATURE: Multivessel calcific coronary arteriosclerosis. Abdominal aorta is non-dilated. LYMPH NODES: Unremarkable. No enlarged lymph nodes. CT/Abdomen/Pelvis W IV Cont ONLY IMPRESSION: No acute or inflammatory disease or bowel obstruction. Stool throughout the colon can be seen with constipation. Electronically Signed: Eze Avila MD at 3:20 EST Tel , Service support ,
[2021-05-23 02:08] LABS: Absolute Lymphocyte Count 1.68 X10^3/uL (0.83-4.51); Absolute Neutrophil Count 6.2 X10^3/uL (2.0-7.7); Basophil% 1.1 % (0-1); Eosinophil# 0.18 X10^3/uL; Hematocrit 39.7 % (40-54); Hemoglobin 13.3 g/dL (13.0-16.5); Lymphocyte # 1.68 X10^3/ul (0.83-4.51); Lymphocyte % 18.6 % (19-41); Mean Corp Hgb Conc 33.5 g/dL (32-36); Mean Corpuscular Hgb 27.8 pg (27.0-32.0); Mean Corpuscular Volume 83.1 fL (80-94); Mean Platelet Vol. 9.8 fl (6.2-12.0); Monocyte# 0.87 X10^3/uL; Monocyte% 9.6 % (0-10); NRBC Flagged by Analyzer 0 % (0-5); Neutrophil # 6.16 X10^3/uL (2.7-7.7); Platelet Count 273 K/mm3 (150-450); RBC Distribution Width CV 12.9 % (11.6-14.6); RBC Distribution Width SD 39.3 fl (35.1-43.9); Red Blood Count 4.78 M/mm3 (4.6-6.2); White Blood Count 9.1 K/mm3 (4.4-11.0)
[2021-05-23] MEDS: 0.9% Normal Saline 1,000 ML 999 ML IV (02:14)
[2021-05-23 02:21] LABS: AST(SGOT) 25 U/L (15-37); Alanine Aminotransfer ALT/SGPT 21 U/L (16-61); Albumin, Serum 3.6 g/dL (3.2-5.0); Alkaline Phosphatase 71 U/L (45-117); Anion Gap 9 (5-15); BUN 11 mg/dL (7-18); BUN/Creat Ratio 10.5 RATIO (10-20); Bilirubin, Direct 0.27 mg/dL (0.00-0.30); Calcium,Total 9.6 mg/dL (8.5-10.1); Chloride 99 mmol/L (98-107); Creatinine, Serum 1.05 mg/dL (0.70-1.30); EST Glomerular Filtration Rate 73 mL/min (>60); Est Glom Filt Rate - Afr Amer 88 mL/min (>60); Estimated Creatinine Clearance 55.08 ml/min; Globulin 4.4 g/dL (2.2-4.2); Glucose 182 mg/dL (74-106); Lipase 112 U/L (73-393); Potassium 3.1 mmol/L (3.5-5.1); Sodium Level 138 mmol/L (136-145)
--- NOTE | 2021-05-23 04:01 | EDS_ITS ---
HPI History of Present Illness Chief Complaint: Abd Pain Narrative Narrative: Patient is a 76-year-old male brought in by family with reports of 5 days of constipation and abdominal pain. Family states patient over the past year has been going through bouts of constipation followed by loose stool/diarrhea. They state the patient has been complaining of more pain than baseline when associated with his constipation and therefore brought him in for evaluation [facility] Medical History (Updated 05/23/21 @ 04:[address] Eze Pardo, DO) Anxiety and depression BPH (benign prostatic hyperplasia) CVA (cerebral vascular accident) Diabetes mellitus HLD (hyperlipidemia) HTN (hypertension) Home Medications aspirin 81 mg tablet,delayed release 81 mg PO DAILY@0800 02/10/19 [History Last Taken 11/02/19] atorvastatin 40 mg PO QHS #0 11/15/19 [Rx Last Taken 03/20/20 19:59] metformin 500 mg PO BID 03/21/20 [History Last Taken Unknown] tamsulosin 0.8 mg PO QHS 03/21/20 [History Last Taken Unknown] acetaminophen 1,000 mg PO Q6H PRN PRN tab 03/29/20 [Rx Last Taken Unknown] acyclovir 400 mg PO 5X/DAY #20 cap 03/29/20 [Rx Last Taken Unknown] amoxicillin-pot clavulanate 875 mg PO BID #2 tab 03/29/20 [Rx Last Taken Unknown] losartan 100 mg PO DAILY #30 tab 03/29/20 [Rx Last Taken Unknown] menthol-zinc oxide 1 applic TOPICAL 0600,2200 tube 03/29/20 [Rx Last Taken Unknown] ondansetron 4 mg PO Q6H PRN PRN #120 tab 03/29/20 [Rx Last Taken Unknown] pantoprazole 40 mg PO BID #60 tab 03/29/20 [Rx Last Taken Unknown] polysaccharide iron complex 150 mg PO DAILYCM #30 cap 03/29/20 [Rx Last Taken Unknown] potassium chloride 20 meq PO BIDCM #60 tab 03/29/20 [Rx Last Taken Unknown] linaclotide [Linzess] 145 mcg PO DAILY #30 cap 05/23/21 [Rx Last Taken Unknown] Allergy/AdvReac Type Severity Reaction Status Date / Time No Known Allergies Allergy Verified 05/23/21 01:27 Family History Mother Myocardial infarction Surgical History History of loop recorder (11/22/19) Social History (Updated 01/18/20 @ 15:[address] Imani Childers MD) Smoking Status: Never smoker alcohol intake: current alcohol intake frequency: a few times a week substance use type: does not use caffeine: Yes Type: coffee and tea ROS ROS ED Constitutional Constitutional ED: Denies chills or fever(s) ENT ENT ED: Denies sore throat Cardiovascular Cardiovascular: Denies chest pain Respiratory/Chest Respiratory/Chest: Denies cough or dyspnea Gastrointestinal Gastrointestinal: Reports abdominal pain, constipation and nausea; Denies diarrhea or vomiting Genitourinary Genitourinary ED: Reports other Details: Positive difficulty with urination ; Denies dysuria Musculoskeletal Musculoskeletal: Denies myalgias Integumentary Denies rash Neurologic Neurologic: Denies headache(s) Hematologic/Lymphatic Hematologic/Lymphatic: Denies easy bleeding or easy bruising EXAM Physical Exam Const Vital Signs: 05/23/21 01:23 05/23/21 04:04 Temperature 98.8 F Temperature Source Oral Pulse Rate 96 81 Respiratory Rate 16 Blood Pressure 154/107 H 152/84 H Blood Pressure Mean 122 106 Pulse Ox 98 Oxygen Delivery Method Room Air Positive well nourished and well developed General Appearance ED: well developed HEENT Reports dry mucous membranes Mouth ED: Yes dry mucous membranes Mouth: dry mucous membranes Eyes PERRL and EOMs intact bilaterally Neck supple Resp normal respiratory effort and clear to auscultation bilaterally Cardio regular rate and regular rhythm Rate: other Other Details: Radial pulses are plus 2 out of 4 bilaterally are equal and symmetric GI non-tender and non-distended GI Narrative: Abdomen is soft nontender nondistended with hypoactive bowel sounds. Patient has a ventral hernia present which is chronic and reducible in nature. No voluntary guarding or rigidity no pulsatile mass Palpation: soft Extremity normal to inspection Neuro oriented x3 and CN's II-XII intact bilaterally Sensorium / Orientation: alert Motor Exam: strength 5/5 throughout Psych mental status grossly normal Skin no rashes or lesions noted Skin Narrative: Skin turgor is increased MDM MDM MDM Narrative Medical decision making narrative: Patient presented to the ER afebrile with a soft nonsurgical abdomen. He did have dehydration changes on exam and with the report of 5 days of constipation and elected perform a CT scan to rule out an underlying infectious process such as diverticulitis or possible obstruction. Blood work revealed no acute findings just mild dehydration changes with a slight elevation to his creatinine and decreased to his potassium. CT scan confirmed constipation without secondary obstructive process or infectious changes. On reevaluation the patient is resting comfortably and remains in no acute distress. Therefore I will place him on medication to help with the constipation and he is safe for discharge Lab Data Attestation: I reviewed the patient's lab results. Labs: Laboratory Results - last 24 hr 05/23/21 05/23/21 01:30 01:30 WBC 9.1 RBC 4.78 Hgb 13.3 Hct 39.7 L MCV 83.1 MCH 27.8 MCHC 33.5 RDW Std Deviation 39.3 RDW Coeff of Brunilda 12.9 Plt Count 273 MPV 9.8 Immature Gran % (Auto) 0.700 Neut % (Auto) 68.0 Lymph % (Auto) 18.6 L [place] % (Auto) 9.6 Eos % (Auto) 2.0 Baso % (Auto) 1.1 H Absolute Neuts (auto) 6.2 Absolute Lymphs (auto) 1.68 Nucleated RBC % 0 Sodium 138 Potassium 3.1 L Chloride 99 Carbon Dioxide 30.0 Anion Gap 9 BUN 11 Creatinine 1.05 Estim Creat Clear Calc 55.08 Est GFR (MDRD) Af Amer 88 Est GFR (MDRD) Non-Af 73 BUN/Creatinine Ratio 10.5 Glucose 182 H Calcium 9.6 Total Bilirubin 0.90 Direct Bilirubin 0.27 AST 25 ALT 21 Alkaline Phosphatase 71 Total Protein 8.0 Albumin 3.6 Globulin 4.4 H Lipase 112 Radiography Diagnostic Testing: Clinical Impression(s) from Imaging Studies Abdomen/Pelvis CT 05/23/21 02:00 IMPRESSION: No acute or inflammatory disease or bowel obstruction. Stool throughout the colon can be seen with constipation. Electronically Signed: Eze Avila MD at 3:20 EST Tel , Service support , Discharge Plan Triage Chief Complaint: Abd Pain ED Provider: Eze Pardo Dx/Rx/DC Orders Clinical Impression: Constipation, Mild dehydration Instructions: Dehydration, ED Constipation (Adult) Prescriptions: New Linzess 145 mcg capsule 145 mcg PO DAILY Qty: 30 RF: 0 No Action aspirin [Adult Aspirin Regimen] 81 mg tablet,delayed release (DR/EC) 81 mg PO DAILY@0800 RF: 0 atorvastatin 40 mg tablet 40 mg PO QHS Qty: 0 RF: 0 tamsulosin 0.4 MG capsule 0.8 mg PO QHS RF: 0 metformin 500 MG tablet 500 mg PO BID RF: 0 polysaccharide iron complex 150 MG capsule 150 mg PO DAILYCM Qty: 30 RF: 0 acetaminophen 500 MG tablet 1,000 mg PO Q6H PRN PRN (Reason: Pain Score 1-10/10) RF: 0 potassium chloride 20 MEQ tablet 20 meq PO BIDCM Qty: 60 RF: 0 acyclovir 200 MG capsule 400 mg PO 5X/DAY Qty: 20 RF: 0 ondansetron 4 MG tablet 4 mg PO Q6H PRN PRN (Reason: NAUSEA) Qty: 120 RF: 0 amoxicillin-pot clavulanate 875 MG tablet 875 mg PO BID Qty: 2 RF: 0 menthol-zinc oxide 1 APPLIC ointment 1 applic TOPICAL 0600,2200 RF: 0 pantoprazole 40 MG tablet 40 mg PO BID Qty: 60 RF: 0 losartan 100 MG tablet 100 mg PO DAILY Qty: 30 RF: 0 Primary Care Provider: Diamond Acevedo Referrals: Diamond Acevedo MD [Primary Care Provider] - Disposition Disposition: Home, Self Care Discharge Date/Time: 05/23/21 04:22
[2021-05-23 04:04] VITALS: BP 152/84; PULSE 81
== END 2021-05-23 04:22 | disposition home or self-care (01) ==
PROVIDERS: Emergency Provider Emergency Medicine; PCP Internal Medicine
DX: K59.00 Constipation, unspecified (principal); E86.0 Dehydration; E11.9 Type 2 diabetes mellitus without complications; E78.5 Hyperlipidemia, unspecified; I10 Essential (primary) hypertension; N40.0 Benign prostatic hyperplasia without lower urinary tract symptoms; F41.9 Anxiety disorder, unspecified; F32.A Depression, unspecified; Z79.82 Long term (current) use of aspirin; Z79.84 Long term (current) use of oral hypoglycemic drugs
CPT/HCPCS: 74177; 80048; 80076; 83690; 85025; 96360; 99283; J7030; Q9967; A4216

== ENCOUNTER 2021-05-27 12:12 | Emergency (ER) | payer MEDICARE, OTHER, SELFPAY ==
[2021-05-27 12:13] VITALS: BP 139/98; PULSE 80; RESP 16; TEMP 36.1; O2SAT 99; BMI 22.1
--- NOTE | 2021-05-27 13:24 | RAD_ITS ---
STUDY: X-RAY - ABDOMEN/PELVIS REASON FOR EXAM: Male, 76 years old. Constipation. TECHNIQUE: Two AP supine views of the abdomen and pelvis. COMPARISON: None. FINDINGS: There is no bowel obstruction. There is a large amount of stool in the colon, consistent with constipation. The visualized osseous structures are within normal limits. RAD/Abdomen Single View (Portable) IMPRESSION: No bowel obstruction. Constipation. Electronically Signed: Scott Cisneros MD at 14:41 EST Tel , Service support ,
--- NOTE | 2021-05-27 13:25 | EDS_ITS ---
HPI HPI - GI History of Present Illness Chief Complaint: Constipation Detail of Chief Complaint: Constipation with no bowel movement for 7 days Informant: patient and family Narrative Narrative: Patient presents to the emergency department complaint of constipation. Most of the history comes from the patient's son who is with him. Patient has not had a bowel movement in 7 days. Patient was seen in the emergency department 4 days ago and had CAT scan which showed constipation. He was sent home with magnesium citrate and however he has still not had a bowel movement. He had decreased p.o. intake. Patient denies any vomiting although he has been taken Zofran because he had vomiting when he first came in 4 days ago. He denies any abdominal pain. He denies fevers. Patient has had intermittent episodes of constipation in the past. Prior similar symptoms: Yes PFSH [facility] Medical History (Updated 05/27/21 @ 16:[address] Mayra Fernandez, ) Anxiety and depression BPH (benign prostatic hyperplasia) CVA (cerebral vascular accident) Diabetes mellitus HLD (hyperlipidemia) HTN (hypertension) Home Medications aspirin 81 mg tablet,delayed release 81 mg PO DAILY@0800 02/10/19 [History Last Taken 11/02/19] atorvastatin 40 mg PO QHS #0 11/15/19 [Rx Last Taken 03/20/20 19:59] metformin 500 mg PO BID 03/21/20 [History Last Taken Unknown] tamsulosin 0.8 mg PO QHS 03/21/20 [History Last Taken Unknown] acetaminophen 1,000 mg PO Q6H PRN PRN tab 03/29/20 [Rx Last Taken Unknown] acyclovir 400 mg PO 5X/DAY #20 cap 03/29/20 [Rx Last Taken Unknown] amoxicillin-pot clavulanate 875 mg PO BID #2 tab 03/29/20 [Rx Last Taken Unknown] losartan 100 mg PO DAILY #30 tab 03/29/20 [Rx Last Taken Unknown] menthol-zinc oxide 1 applic TOPICAL 0600,2200 tube 03/29/20 [Rx Last Taken Unknown] ondansetron 4 mg PO Q6H PRN PRN #120 tab 03/29/20 [Rx Last Taken Unknown] pantoprazole 40 mg PO BID #60 tab 03/29/20 [Rx Last Taken Unknown] polysaccharide iron complex 150 mg PO DAILYCM #30 cap 10/14/20 [Rx Last Taken Unknown] potassium chloride 20 meq PO BIDCM #60 tab 03/29/20 [Rx Last Taken Unknown] linaclotide [Linzess] 145 mcg PO DAILY #30 cap 05/23/21 [Rx Last Taken Unknown] Allergy/AdvReac Type Severity Reaction Status Date / Time No Known Allergies Allergy Verified 05/27/21 12:15 Family History Mother Myocardial infarction Surgical History History of loop recorder (11/22/19) Social History (Updated 01/18/20 @ 15:[address] Imani Childers MD) Smoking Status: Never smoker alcohol intake: current alcohol intake frequency: a few times a week substance use type: does not use caffeine: Yes Type: coffee and tea ROS ROS ED Constitutional Constitutional ED: Reports systems reviewed and no addt'l complaints, except as documented; Denies body ache(s), change in weight or chills Eyes Eyes: Denies acute decrease in peripheral vision, change in vision, double vision or loss of vision ENT ENT ED: Reports none; Denies ear pain, lip swelling, loss taste/smell, neck pain, otalgia or sore throat Cardiovascular Cardiovascular: Reports none; Denies abdominal pain, chest pain with activity, leg edema, lightheadedness, palpitations, rapid heart rate or syncope Respiratory/Chest Respiratory/Chest: Reports none; Denies change in mental status, dry cough, dyspnea, hemoptysis, shortness of breath at rest or shortness of breath with exertion Gastrointestinal Gastrointestinal: Reports none and constipation; Denies abdominal pain, change in stool character, diarrhea, hematemesis, hematochezia, melena, rectal bleeding or vomiting Genitourinary Genitourinary ED: Reports none; Denies abdominal discomfort, anuria, dysuria, genital pain or polyuria Musculoskeletal Musculoskeletal: Reports none; Denies arthralgias, back pain, difficulty walking, extremity pain, muscle weakness or myalgias Integumentary Reports none; Denies abscess or rash Neurologic Neurologic: Reports none; Denies abnormal gait, confusion, focal weakness, frequent falls, headache(s), loss of vision, numbness, paresthesias, radicular pain, vertigo or weakness Psychiatric Psychiatric: Reports systems reviewed and no addt'l complaints, except as documented and none; Denies behavioral changes, confusion, difficulty concentrating, hallucinations, suicidal ideation, tactile hallucinations or visual hallucinations Endocrine Endocrinology: Denies none, cold intolerance, excessive sweating, fatigue or heat intolerance Hematologic/Lymphatic Hematologic/Lymphatic: Reports none; Denies anemia, easy bleeding or easy bruising Allergic/Immunologic Allergic/Immunologic ED: Denies as per HPI, none, lip swelling, mouth swelling, throat swelling, tongue swelling or hives EXAM Physical Exam Const Vital Signs: 05/27/21 12:13 Temperature 97.0 F L Temperature Source Temporal Pulse Rate 80 Respiratory Rate 16 Blood Pressure 139/98 H Blood Pressure Mean 111 Pulse Ox 99 Oxygen Delivery Method Room Air Positive well nourished and well developed General Appearance ED: well developed and NAD HEENT Reports TM's clear and moist mucous membranes normocephalic and atraumatic; Negative for trauma or tenderness Tympanic Membrane ED: Yes TM's clear Eyes PERRL and EOMs intact bilaterally General Eye ED: Negative for pale conjunctiva or scleral icterus Neck no lymphadenopathy, supple and no JVD General: Negative for tenderness Chest Wall inspection of chest normal and palpation of chest normal Chest: Negative for tenderness Resp normal respiratory effort and clear to auscultation bilaterally Effort and Inspection: Negative for respiratory distress or pain with movement Auscultation: Negative for rhonchi, wheezes or diminished lung sounds Cardio regular rate, regular rhythm, S1 normal heart sound, S2 normal heart sound and no murmurs Peripheral Pulses: pulses 2+ throughout GI normal to inspection, nondistended, normoactive bowel sounds, soft to palpation, non-tender, non-distended and no masses GI Narrative: Rectal exam performed and he had a small amount of soft stool in the rectal vault without impaction. On exam he has no tenderness to his abdomen. There is no rebound, rigidity, or peritoneal signs. Back/Spine no CVA tenderness and no thoracic nor lumbar tenderness Extremity normal to inspection General Extremety ED: Negative for edema General Extremity: Negative for edema Neuro oriented x3, CN's II-XII intact bilaterally, no sensory deficits noted and gait normal Sensorium / Orientation: awake, alert, oriented to person, oriented to place and oriented to time Motor Exam: strength 5/5 throughout and strength abnormal Psych mental status grossly normal Skin no rashes or lesions noted and no wounds MDM MDM MDM Narrative Medical decision making narrative: Patient had a KUB on arrival that showed la rge amount of stool throughout the colon. Patient was given soapsuds enema and he had some results with that x2. Case was discussed with general surgeon on- call who recommended magnesium citrate until diarrhea and clear liquids. Patient will be given referral to general surgery if symptoms do not resolve. Patient to return if abdominal pain, fever, vomiting, or conditions worsen anyway. Lab Data Attestation: I reviewed the patient's lab results. Radiography Diagnostic Testing: Clinical Impression(s) from Imaging Studies KUB X-Ray 05/27/21 13:24 IMPRESSION: No bowel obstruction. Constipation. Electronically Signed: Scott Cisneros MD at 14:41 EST Tel , Service support , Discharge Plan Triage Chief Complaint: Constipation ED Provider: Mayra Fernandez Dx/Rx/DC Orders Clinical Impression: Constipation Instructions: ED Constipation (Adult) Prescriptions: No Action aspirin [Adult Aspirin Regimen] 81 mg tablet,delayed release (DR/EC) 81 mg PO DAILY@0800 RF: 0 atorvastatin 40 mg tablet 40 mg PO QHS Qty: 0 RF: 0 tamsulosin 0.4 MG capsule 0.8 mg PO QHS RF: 0 metformin 500 MG tablet 500 mg PO BID RF: 0 polysaccharide iron complex 150 MG capsule 150 mg PO DAILYCM Qty: 30 RF: 0 acetaminophen 500 MG tablet 1,000 mg PO Q6H PRN PRN (Reason: Pain Score 1-10/10) RF: 0 potassium chloride 20 MEQ tablet 20 meq PO BIDCM Qty: 60 RF: 0 acyclovir 200 MG capsule 400 mg PO 5X/DAY Qty: 20 RF: 0 ondansetron 4 MG tablet 4 mg PO Q6H PRN PRN (Reason: NAUSEA) Qty: 120 RF: 0 amoxicillin-pot clavulanate 875 MG tablet 875 mg PO BID Qty: 2 RF: 0 menthol-zinc oxide 1 APPLIC ointment 1 applic TOPICAL 0600,2200 RF: 0 pantoprazole 40 MG tablet 40 mg PO BID Qty: 60 RF: 0 losartan 100 MG tablet 100 mg PO DAILY Qty: 30 RF: 0 Linzess 145 mcg capsule 145 mcg PO DAILY Qty: 30 RF: 0 Primary Care Provider: Diamond Acevedo Referrals: Maurisio Murrell MD [STAFF PHYSICIAN] - 3-5 Days Diamond Acevedo MD [Primary Care Provider] - Activity Restrictions/Additional Instructions: Use magnesium citrate daily until diarrhea develops. Clear liquids. Disposition Disposition: Home, Self Care
[2021-05-27 16:05] VITALS: BP 134/86; PULSE 78; RESP 18; TEMP 36.6; O2SAT 98
[2021-05-27] MEDS: Magnesium Citrate 300 ML PO (16:25)
== END 2021-05-27 16:28 | disposition home or self-care (01) ==
PROVIDERS: Emergency Provider Emergency Medicine; PCP Internal Medicine
DX: K59.00 Constipation, unspecified (principal); I10 Essential (primary) hypertension; E78.5 Hyperlipidemia, unspecified; E11.9 Type 2 diabetes mellitus without complications; N40.0 Benign prostatic hyperplasia without lower urinary tract symptoms; F41.9 Anxiety disorder, unspecified; Z79.82 Long term (current) use of aspirin; Z79.84 Long term (current) use of oral hypoglycemic drugs; F32.A Depression, unspecified
CPT/HCPCS: 74018; 99284

== ENCOUNTER 2021-11-07 12:37 | Emergency (ER) | payer MEDICARE, OTHER, SELFPAY ==
[2021-11-07 12:38] VITALS: BP 130/90; PULSE 69; RESP 18; TEMP 36.9; O2SAT 94; BMI 21.0
--- NOTE | 2021-11-07 12:49 | CT_ITS ---
INDICATION: fall, vomiting EXAMINATION: CT BRAIN - CT Head or Brain W/O Contrast Injection TECHNIQUE: Multiple axial images were obtained of the head without intravenous contrast. A radiation dose optimization technique was used for this scan. IV Contrast dosage and agent: None. COMPARISON: CT head without contrast from 03/23/2020, 11/02/2019 FINDINGS: No acute intra or extra-axial hemorrhage. No significant midline shift. Stable configuration of the ventricles with age-appropriate size and configuration. Diffuse cortical atrophy. No acute large territory cortical infarction. Chronic small vessel ischemic changes. Stable remote left lacunar infarct and infarct in the [place]. No significant cerebral edema. Orbits and globes are unremarkable. No acute calvarial fracture. Soft tissues are unremarkable. Paranasal sinuses and mastoid air cells are clear. CT/Brain/Head without Contrast IMPRESSION: No acute intracranial findings Electronically Signed: Herb Cruz, at 14:25 EDT ,
--- NOTE | 2021-11-07 12:52 | EX.ED.DYSGE1 ---
HPI History of Present Illness Chief Complaint: Fall Informant: patient and family Onset/Context/Timing Onset: Today Narrative Narrative: Patient presents via EMS after fall with vomiting. Daughter states they were helping him get up out of bed this morning when he fell to the floor. He hit the back of his head on the floor where there was a rug covering a wooden floor. He vomited a short time later. EMS was called but patient refused transport. He vomited again 20 minutes later and EMS was called again. [facility] Medical History (Updated 11/07/21 @ 14:[address] Jaylin Jackson MD) Anxiety and depression BPH (benign prostatic hyperplasia) CVA (cerebral vascular accident) Diabetes mellitus HLD (hyperlipidemia) HTN (hypertension) Home Medications aspirin 81 mg tablet,delayed release 81 mg PO DAILY@0800 02/10/19 [History Last Taken 11/02/19] atorvastatin 40 mg PO QHS #0 11/15/19 [Rx Last Taken 03/20/20 19:59] metformin 500 mg PO BID 03/21/20 [History Last Taken Unknown] tamsulosin 0.8 mg PO QHS 03/21/20 [History Last Taken Unknown] acetaminophen 1,000 mg PO Q6H PRN PRN tab 03/29/20 [Rx Last Taken Unknown] acyclovir 400 mg PO 5X/DAY #20 cap 03/29/20 [Rx Last Taken Unknown] amoxicillin-pot clavulanate 875 mg PO BID #2 tab 03/29/20 [Rx Last Taken Unknown] losartan 100 mg PO DAILY #30 tab 03/29/20 [Rx Last Taken Unknown] menthol-zinc oxide 1 applic TOPICAL 0600,2200 tube 03/29/20 [Rx Last Taken Unknown] ondansetron 4 mg PO Q6H PRN PRN #120 tab 03/29/20 [Rx Last Taken Unknown] pantoprazole 40 mg PO BID #60 tab 03/29/20 [Rx Last Taken Unknown] polysaccharide iron complex 150 mg PO DAILYCM #30 cap 03/29/20 [Rx Last Taken Unknown] potassium chloride 20 meq PO BIDCM #60 tab 03/29/20 [Rx Last Taken Unknown] linaclotide [Linzess] 145 mcg PO DAILY #30 cap 05/23/21 [Rx Last Taken Unknown] Allergy/AdvReac Type Severity Reaction Status Date / Time No Known Allergies Allergy Verified 05/27/21 12:15 Family History Mother Myocardial infarction Surgical History History of loop recorder (11/22/19) Social History Smoking Status: Never smoker alcohol intake: current alcohol intake frequency: a few times a week substance use type: does not use caffeine: Yes Type: coffee and tea ROS ROS ED ROS Narrative Patient rests with eyes closed. Will nod his head to questions but not verbally answering. Review of Systems ROS Unobtainable: due to mental status Constitutional Constitutional ED: Denies chills or fever(s) Cardiovascular Cardiovascular: Denies chest pain or palpitations Respiratory/Chest Respiratory/Chest: Denies dyspnea Gastrointestinal Gastrointestinal: Reports nausea and vomiting Musculoskeletal Musculoskeletal: Denies back pain or neck pain Neurologic Neurologic: Reports weakness; Denies headache(s) EXAM Physical Exam Const Vital Signs: 11/07/21 12:38 11/07/21 12:44 11/07/21 14:36 Temperature 98.4 F Temperature Source Temporal Pulse Rate 69 64 Respiratory Rate 18 16 Respiratory Effort Normal Respiratory Depth Normal Respiratory Pattern Normal Blood Pressure 130/90 H 101/61 Blood Pressure Mean 103 74 Pulse Ox 94 98 Oxygen Delivery Method Room Air Room Air Nasal Cannula Oxygen Flow Rate (L/min) 3 Positive well nourished and well developed General Appearance ED: well developed HEENT Reports moist mucous membranes Eyes PERRL and EOMs intact bilaterally Neck supple Chest Wall inspection of chest normal and palpation of chest normal Resp normal respiratory effort and clear to auscultation bilaterally Cardio regular rate and regular rhythm GI non-tender Palpation: soft Extremity Extremity Narrative: Superficial abrasion along the anterior right lower [place]. No active bleeding. No bony tenderness. Neuro Sensorium / Orientation: alert MDM MDM MDM Narrative Medical decision making narrative: Lab work obtained. CT of the head ordered. Lab Data Attestation: I reviewed the patient's lab results. Labs: Laboratory Results - last 24 hr 11/07/21 11/07/21 13:30 13:30 WBC 6.8 RBC 4.06 L Hgb 11.8 L Hct 34.6 L MCV 85.2 MCH 29.1 MCHC 34.1 RDW Std Deviation 43.8 RDW Coeff of Brunilda 14.1 Plt Count 235 MPV 8.6 Immature Gran % (Auto) 1.200 H Neut % (Auto) 77.5 H Lymph % (Auto) 11.9 L [place] % (Auto) 8.0 Eos % (Auto) 0.7 Baso % (Auto) 0.7 Absolute Neuts (auto) 5.3 Absolute Lymphs (auto) 0.81 L Nucleated RBC % 0 Sodium 135 L Potassium 4.3 Chloride 102 Carbon Dioxide 25.0 Anion Gap 8 BUN 11 Creatinine 0.87 Estim Creat Clear Calc 63.26 Est GFR (MDRD) Af Amer 109 Est GFR (MDRD) Non-Af 90 BUN/Creatinine Ratio 12.6 Glucose 155 H Calcium 9.4 Total Bilirubin 0.80 Direct Bilirubin 0.25 AST 17 ALT 28 Alkaline Phosphatase 71 Total Protein 6.4 Albumin 3.0 L Globulin 3.4 Radiography Diagnostic Testing: Clinical Impression(s) from Imaging Studies Brain CT 11/07/21 12:49 IMPRESSION: No acute intracranial findings Electronically Signed: Herb Cruz at 14:25 EDT , Treatment and Re-Evaluation Narrative: Lab work is largely unremarkable. CT scan of the head reveals no acute findings. Test results discussed with daughter at bedside. She states she has nausea medicine at home that she can use for her father. Return instructions will be provided. Discharge Plan Triage Chief Complaint: Fall ED Provider: Jaylin Jackson Dx/Rx/DC Orders Clinical Impression: Fall, CHI (closed head injury) Instructions: ED Head Injury (Adult) Prescriptions: No Action aspirin [Adult Aspirin Regimen] 81 mg tablet,delayed release (DR/EC) 81 mg PO DAILY@0800 RF: 0 atorvastatin 40 mg tablet 40 mg PO QHS Qty: 0 RF: 0 tamsulosin 0.4 MG capsule 0.8 mg PO QHS RF: 0 metformin 500 MG tablet 500 mg PO BID RF: 0 polysaccharide iron complex 150 MG capsule 150 mg PO DAILYCM Qty: 30 RF: 0 acetaminophen 500 MG tablet 1,000 mg PO Q6H PRN PRN (Reason: Pain Score 1-10/10) RF: 0 potassium chloride 20 MEQ tablet 20 meq PO BIDCM Qty: 60 RF: 0 acyclovir 200 MG capsule 400 mg PO 5X/DAY Qty: 20 RF: 0 ondansetron 4 MG tablet 4 mg PO Q6H PRN PRN (Reason: NAUSEA) Qty: 120 RF: 0 amoxicillin-pot clavulanate 875 MG tablet 875 mg PO BID Qty: 2 RF: 0 menthol-zinc oxide 1 APPLIC ointment 1 applic TOPICAL 0600,2200 RF: 0 pantoprazole 40 MG tablet 40 mg PO BID Qty: 60 RF: 0 losartan 100 MG tablet 100 mg PO DAILY Qty: 30 RF: 0 Linzess 145 mcg capsule 145 mcg PO DAILY Qty: 30 RF: 0 Primary Care Provider: Diamond Acevedo Referrals: Diamond Acevedo MD [Primary Care Provider] - 1-2 Weeks Disposition Disposition: Home, Self Care
[2021-11-07] MEDS: 0.9% Normal Saline 1,000 ML 1000 ML IV (13:35)
[2021-11-07 13:36] LABS: Absolute Lymphocyte Count 0.81 X10^3/uL (0.83-4.51); Absolute Neutrophil Count 5.3 X10^3/uL (2.0-7.7); Basophil# 0.05 X10^3/uL; Basophil% 0.7 % (0-1); Eosinophil# 0.05 X10^3/uL; Eosinophils% 0.7 % (0-5); Hematocrit 34.6 % (40-54); Hemoglobin 11.8 g/dL (13.0-16.5); Lymphocyte # 0.81 X10^3/ul (0.83-4.51); Lymphocyte % 11.9 % (19-41); Mean Corp Hgb Conc 34.1 g/dL (32-36); Mean Corpuscular Hgb 29.1 pg (27.0-32.0); Mean Corpuscular Volume 85.2 fL (80-94); Mean Platelet Vol. 8.6 fl (6.2-12.0); Monocyte# 0.54 X10^3/uL; NRBC Flagged by Analyzer 0 % (0-5); Neutrophil # 5.26 X10^3/uL (2.7-7.7); Neutrophil % 77.5 % (47-70); Platelet Count 235 K/mm3 (150-450); RBC Distribution Width CV 14.1 % (11.6-14.6); RBC Distribution Width SD 43.8 fl (35.1-43.9); Red Blood Count 4.06 M/mm3 (4.6-6.2); White Blood Count 6.8 K/mm3 (4.4-11.0)
[2021-11-07] MEDS: Ondansetron 4 MG/2 ML Vial IV (13:36)
[2021-11-07 13:48] LABS: AST(SGOT) 17 U/L (15-37); Alanine Aminotransfer ALT/SGPT 28 U/L (16-61); Alkaline Phosphatase 71 U/L (45-117); Anion Gap 8 (5-15); BUN 11 mg/dL (7-18); BUN/Creat Ratio 12.6 RATIO (10-20); Bilirubin, Direct 0.25 mg/dL (0.00-0.30); Calcium,Total 9.4 mg/dL (8.5-10.1); Chloride 102 mmol/L (98-107); Creatinine, Serum 0.87 mg/dL (0.70-1.30); EST Glomerular Filtration Rate 90 mL/min (>60); Est Glom Filt Rate - Afr Amer 109 mL/min (>60); Estimated Creatinine Clearance 63.26 ml/min; Globulin 3.4 g/dL (2.2-4.2); Glucose 155 mg/dL (74-106); Potassium 4.3 mmol/L (3.5-5.1); Protein, Total 6.4 g/dL (6.4-8.2); Sodium Level 135 mmol/L (136-145)
[2021-11-07 14:36] VITALS: BP 101/61; PULSE 64; RESP 16; O2SAT 98
[2021-11-07 15:04] VITALS: BP 140/83; PULSE 78; RESP 14; TEMP 36.9; O2SAT 98
== END 2021-11-07 15:04 | disposition home or self-care (01) ==
PROVIDERS: Emergency Provider Emergency Medicine; PCP Internal Medicine; Visit Provider Emergency Medicine
DX: S09.90XA Unspecified injury of head, initial encounter (principal); E11.9 Type 2 diabetes mellitus without complications; I10 Essential (primary) hypertension; E78.5 Hyperlipidemia, unspecified; Z86.73 Personal history of transient ischemic attack (TIA), and cerebral infarction without residual deficits; W06.XXXA Fall from bed, initial encounter; Z79.82 Long term (current) use of aspirin
CPT/HCPCS: 70450; 80048; 80076; 85025; 96361; 96374; 99284; J7030; A4216; J2405

== ENCOUNTER 2022-02-16 15:53 | Inpatient (IN) | payer MEDICARE, OTHER, SELFPAY ==
[2022-02-16] VITALS (13 sets, daily range): BP systolic 104–139; BP diastolic 88–96; PULSE 78–134; RESP 13–19; TEMP 36.3–36.9; O2SAT 93–97; BMI 20.9; BMI 16.9
[2022-02-16 16:27] LABS: Absolute Lymphocyte Count 2.28 X10^3/uL (0.83-4.51); Absolute Neutrophil Count 3.8 X10^3/uL (2.0-7.7); Basophil# 0.04 X10^3/uL; Basophil% 0.6 % (0-1); Eosinophil# 0.02 X10^3/uL; Eosinophils% 0.3 % (0-5); Hematocrit 40.2 % (40-54); Hemoglobin 13.2 g/dL (13.0-16.5); Lymphocyte # 2.28 X10^3/ul (0.83-4.51); Lymphocyte % 33.7 % (19-41); Mean Corp Hgb Conc 32.8 g/dL (32-36); Mean Corpuscular Hgb 27.9 pg (27.0-32.0); Mean Platelet Vol. 8.8 fl (6.2-12.0); Monocyte# 0.55 X10^3/uL; Monocyte% 8.1 % (0-10); NRBC Flagged by Analyzer 0 % (0-5); Neutrophil # 3.78 X10^3/uL (2.7-7.7); Platelet Count 270 K/mm3 (150-450); RBC Distribution Width CV 15.2 % (11.6-14.6); RBC Distribution Width SD 46.8 fl (35.1-43.9); Red Blood Count 4.73 M/mm3 (4.6-6.2); White Blood Count 6.8 K/mm3 (4.4-11.0)
--- NOTE | 2022-02-16 16:34 | EDS_ITS ---
HPI HPI - GI History of Present Illness Chief Complaint: GI Bleed Detail of Chief Complaint: Dark blood per rectum Informant: family and other (Credit Verification Clerk) Abdominal Pain/Flank Pain Onset: - (No complaint of abdominal pain) Nausea/Vomiting/Emesis GI Symptom: Negative for Vomiting Diarrhea/Melena/Hematochezia GI Symptom: Positive for Melena and Hematochezia Onset: Today Stool Quality: Positive for Black, Maroon and BRB per rectum Severity: Moderate Associated Symptoms Associated Symptoms: Negative for Dysuria, Frequency or Hematuria Narrative Narrative: Patient is an elderly male who does not speak much. His daughter and caregiver were the primary informants. Patient does have history of hemorrhoids. Credit Verification Clerk took a picture of the stool in his diaper. It was black to maroon and there was bright red blood. He does have history of hemorrhoids. He apparently is not eating well. He has been losing weight. He complains of generalized aches. He is not very mobile. There is been no documented fever. He denies ocular symptoms. He denies shortness of breath. He denies chest discomfort. Prior similar symptoms: No Recent Illness/Hospitalization: No PFSH PFSH Medical History (Updated 02/16/22 @ 18:[address] Karan Flores MD) Anxiety and depression BPH (benign prostatic hyperplasia) CVA (cerebral vascular accident) Diabetes mellitus HLD (hyperlipidemia) HTN (hypertension) Home Medications aspirin 81 mg tablet,delayed release (Adult Aspirin Regimen) 81 mg PO DAILY@0800 [facility] 02/10/19 [History Last Taken 11/02/19] atorvastatin 40 mg tablet 40 mg PO QHS Check with primary doctor ##0 11/15/19 [Rx Last Taken 03/20/20 19:59] metformin 500 mg tablet,extended release 24 hr 500 mg PO BID Check with primary doctor 03/21/20 [History Last Taken Unknown] tamsulosin 0.4 mg capsule 0.8 mg PO QHS Check with primary doctor 03/21/20 [History Last Taken Unknown] acetaminophen 500 mg tablet 1,000 mg PO Q6H PRN PRN Pain Score 1-03/2503/29/20 [Rx Last Taken Unknown] acyclovir 200 mg capsule 400 mg PO 5X/DAY #20 caps 03/29/20 [Rx Last Taken Unknown] amoxicillin 875 mg-potassium clavulanate 125 mg tablet 875 mg PO BID #2 tabs 03/29/20 [Rx Last Taken Unknown] losartan 100 mg tablet 100 mg PO DAILY Check with primary doctor #30 tabs 03/29/20 [Rx Last Taken Unknown] menthol 0.44 %-zinc oxide 20.6 % topical ointment 1 applic topical 0600,2200 03/29/20 [Rx Last Taken Unknown] ondansetron 4 mg disintegrating tablet 4 mg PO Q6H PRN PRN NAUSEA #120 tabs 03/29/20 [Rx Last Taken Unknown] pantoprazole 40 mg tablet,delayed release 40 mg PO BID Check with primary doctor #60 tabs 03/29/20 [Rx Last Taken Unknown] polysaccharide iron complex 150 mg iron capsule 150 mg PO DAILYCM #30 caps 03/29/20 [Rx Last Taken Unknown] potassium chloride 20 mEq tablet,extended release(part/cryst) 20 meq PO BIDCM #60 tabs 03/29/20 [Rx Last Taken Unknown] linaclotide 145 mcg capsule (Linzess) 145 mcg PO DAILY #30 caps 05/23/21 [Rx Last Taken Unknown] Allergy/AdvReac Type Severity Reaction Status Date / Time No Known Allergies Allergy Verified 05/27/21 12:15 Family History Mother Myocardial infarction Surgical History History of loop recorder (11/22/19) Social History (Updated 02/16/22 @ 16:[address] Karan Flores MD) household members: other Smoking Status: Never smoker alcohol intake: current alcohol intake frequency: a few times a week substance use type: does not use caffeine: Yes Type: coffee and tea ROS ROS ED Review of Systems ROS Unobtainable: due to mental status Gastrointestinal Gastrointestinal: Reports abdominal pain, diarrhea and melena Psychiatric Psychiatric: Reports depression Hematologic/Lymphatic Hematologic/Lymphatic: Denies easy bleeding or easy bruising EXAM Physical Exam Const Vital Signs: 02/16/22 15:55 02/16/22 15:54 02/16/22 18:01 Temperature 98.5 F 98.5 F Temperature Source Oral Oral Pulse Rate 78 78 83 Respiratory Rate 16 16 16 Blood Pressure 139/95 H 137/90 H 121/93 H Blood Pressure Mean 109 105 102 Pulse Ox 94 94 97 Oxygen Delivery Method Room Air Room Air Room Air Positive well developed and cachectic Constitutional Narrative: Patient is cachectic. He has temporal wasting. He does not look well. General Appearance ED: well developed, cachectic and NAD Nutritional Appearance: cachectic HEENT Reports dry mucous membranes HEENT Narrative: Ears normal. Nares patent. Uvula midline. No deviation of protrusion. No erythema or exudate. Question of pallor to his gums. normocephalic and atraumatic Mouth ED: Yes dry mucous membranes Mouth: dry mucous membranes Eyes PERRL and EOMs intact bilaterally General Eye ED: Yes pale conjunctiva; Negative for scleral icterus Neck no lymphadenopathy, supple and no JVD Resp normal respiratory effort and clear to auscultation bilaterally Cardio regular rate, regular rhythm, S1 normal heart sound, S2 normal heart sound and no murmurs GI non-distended and no masses; Negative for non-tender GI Narrative: Patient does have hemorrhoids. Anoscopy was performed. There is no active bleeding from hemorrhoids. He has maroon-black watery diarrhea noted. Auscultation: hyperactive bowel sounds Palpation: soft and tender other (Diffuse) Narrative: No penile lesion or discharge. Testes ascended bilaterally. Back/Spine no CVA tenderness Cervical Spine: Negative for cervical spine tenderness Thoracic Spine / Upper Back: Negative for thoracic spinal tenderness Lumbar Spine / Lower Back: Negative for lumbar spinal tenderness Neuro CN's II-XII intact bilaterally, moves all extremities and No gait normal Sensorium / Orientation: Negative for alert Psych Mood & Affect: depressed Skin no wounds General Skin Exam: Negative for jaundice MDM MDM MDM Narrative Medical decision making narrative: Patient presents with GI bleed. Concern patient has potentially lower GI bleed. Blood work was obtained to assess for anemia, coagulopathy at site. His work- up is essentially unremarkable. Since patient does have black-maroon stool with no evidence of bleeding from his hemorrhoids will contact hospitalist for admission. Lab Data Attestation: I reviewed the patient's lab results. Labs: Laboratory Results - last 24 hr 02/16/22 02/16/22 02/16/22 16:15 16:15 16:15 WBC 6.8 RBC 4.73 Hgb 13.2 Hct 40.2 MCV 85.0 MCH 27.9 MCHC 32.8 RDW Std Deviation 46.8 H RDW Coeff of Brunilda 15.2 H Plt Count 270 MPV 8.8 Immature Gran % (Auto) 1.300 H Neut % (Auto) 56.0 Lymph % (Auto) 33.7 [place] % (Auto) 8.1 Eos % (Auto) 0.3 Baso % (Auto) 0.6 Absolute Neuts (auto) 3.8 Absolute Lymphs (auto) 2.28 Nucleated RBC % 0 PT 13.7 INR 1.1 APTT 30.6 Sodium 143 Potassium 3.6 Chloride 107 Carbon Dioxide 29.0 Anion Gap 7 BUN 13 Creatinine 0.79 Estim Creat Clear Calc 53.20 Est GFR (MDRD) Af Amer 123 Est GFR (MDRD) Non-Af 101 BUN/Creatinine Ratio 16.5 Glucose 141 H Lactic Acid Calcium 9.1 Total Bilirubin 0.90 AST 20 ALT 18 Alkaline Phosphatase 94 Total Protein 6.7 Albumin 2.7 L Globulin 4.0 Albumin/Globulin Ratio 0.7 L Blood Type Antibody Screen 02/16/22 02/16/22 16:15 16:15 WBC RBC Hgb Hct MCV MCH MCHC RDW Std Deviation RDW Coeff of Brunilda Plt Count MPV Immature Gran % (Auto) Neut % (Auto) Lymph % (Auto) [place] % (Auto) Eos % (Auto) Baso % (Auto) Absolute Neuts (auto) Absolute Lymphs (auto) Nucleated RBC % PT INR APTT Sodium Potassium Chloride Carbon Dioxide Anion Gap BUN Creatinine Estim Creat Clear Calc Est GFR (MDRD) Af Amer Est GFR (MDRD) Non-Af BUN/Creatinine Ratio Glucose Lactic Acid 1.5 Calcium Total Bilirubin AST ALT Alkaline Phosphatase Total Protein Albumin Globulin Albumin/Globulin Ratio Blood Type B POSITIVE Antibody Screen NEGATIVE Procedures Other Procedures Procedure(s): Anoscopy was performed. Hemorrhoids were noted. There is no active bleeding. Mucosa did not appear abnormal. There is maroon bloody black stool/diarrhea noted in the rectum. Discharge Plan Triage Chief Complaint: GI Bleed ED Provider: Karan Flores Dx/Rx/DC Orders Clinical Impression: Acute GI bleeding, Debility, Depression, Adult failure to thrive Prescriptions: No Action aspirin [Adult Aspirin Regimen] 81 mg tablet,delayed release (DR/EC) 81 mg PO DAILY@0800 atorvastatin 40 mg tablet 40 mg PO QHS Qty: 0 0RF tamsulosin 0.4 MG capsule 0.8 mg PO QHS metformin 500 MG tablet 500 mg PO BID polysaccharide iron complex 150 MG capsule 150 mg PO DAILYCM Qty: 30 0RF acetaminophen 500 MG tablet 1,000 mg PO Q6H PRN PRN (Reason: Pain Score 1-10/10) 0RF potassium chloride 20 MEQ tablet 20 meq PO BIDCM Qty: 60 0RF acyclovir 200 MG capsule 400 mg PO 5X/DAY Qty: 20 0RF ondansetron 4 MG tablet 4 mg PO Q6H PRN PRN (Reason: NAUSEA) Qty: 120 0RF amoxicillin-pot clavulanate 875 MG tablet 875 mg PO BID Qty: 2 0RF menthol-zinc oxide 1 APPLIC ointment 1 applic TOPICAL 0600,2200 0RF Protocol: *Topical Application Instructions APPLICATION INSTRUCTIONS: bilateral buttocks pantoprazole 40 MG tablet 40 mg PO BID Qty: 60 0RF losartan 100 MG tablet 100 mg PO DAILY Qty: 30 0RF Linzess 145 mcg capsule 145 mcg PO DAILY Qty: 30 0RF Primary Care Provider: Diamond Acevedo Referrals: Diamond Acevedo MD [Primary Care Provider] - Disposition Disposition: Acute Care Hospital [facility]
[2022-02-16 16:40] LABS: International Normalized Ratio 1.1; Prothrombin Time (Protime)PT. 13.7 SECONDS (11.7-14.9)
[2022-02-16 16:41] LABS: Partial Thromboplast Time 30.6 Seconds (24.1-36.2)
[2022-02-16 16:45] LABS: ALB/GLOB Ratio 0.7 RATIO (0.9-2.4); AST(SGOT) 20 U/L (15-37); Alanine Aminotransfer ALT/SGPT 18 U/L (16-61); Albumin, Serum 2.7 g/dL (3.2-5.0); Alkaline Phosphatase 94 U/L (45-117); Anion Gap 7 (5-15); BUN 13 mg/dL (7-18); BUN/Creat Ratio 16.5 RATIO (10-20); Calcium,Total 9.1 mg/dL (8.5-10.1); Chloride 107 mmol/L (98-107); Creatinine, Serum 0.79 mg/dL (0.70-1.30); EST Glomerular Filtration Rate 101 mL/min (>60); Est Glom Filt Rate - Afr Amer 123 mL/min (>60); Glucose 141 mg/dL (74-106); Potassium 3.6 mmol/L (3.5-5.1); Protein, Total 6.7 g/dL (6.4-8.2); Sodium Level 143 mmol/L (136-145)
[2022-02-16 16:55] LABS: Lactic Acid 1.5 mmol/L (0.4-1.9)
[2022-02-16] MEDS: 0.9% Normal Saline 1,000 ML 500 ML IV (18:50)
--- NOTE | 2022-02-16 18:57 | PCM.HP.STD ---
[facility] - General General Date of Admission: 02/16/22 Date of Service: 02/16/22 Chief Complaint: Gastrointestinal bleed HPI Narrative KIMBERLEE DEAN, is a 76 M who presents with bright blood per rectum today. Had 2 episodes at home. Presented to the emergency room and his hemoglobin was 13. Patient has a history of hemorrhoids that have had scant bleeding in the past but this is not consistent with that history. History was obtained through the patient's family members were present at bedside as the patient is very listless and unable provide any history. While was in the room, the patient was turned to his side and was noted to have more blood and was passing more clots. Patient's blood pressure went from 119 systolic to 79 systolic. Patient was advised to get a liter of IV fluids. [facility] Medical History (Updated 02/16/22 @ 19:[address] Trell Painting, ) Anxiety and depression BPH (benign prostatic hyperplasia) CVA (cerebral vascular accident) Diabetes mellitus HLD (hyperlipidemia) HTN (hypertension) Home Medications aspirin 81 mg tablet,delayed release (Adult Aspirin Regimen) 81 mg PO DAILY@0800 [facility] 02/10/19 [History Last Taken 11/02/19] atorvastatin 40 mg tablet 40 mg PO QHS Check with primary doctor ##0 11/15/19 [Rx Last Taken 03/20/20 19:59] tamsulosin 0.4 mg capsule 0.8 mg PO QHS Check with primary doctor 03/21/20 [History Last Taken Unknown] acetaminophen 500 mg tablet 1,000 mg PO Q6H PRN PRN Pain Score 1-03/2503/29/20 [Rx Last Taken Unknown] menthol 0.44 %-zinc oxide 20.6 % topical ointment 1 applic topical 0600,2200 03/29/20 [Rx Last Taken Unknown] ondansetron 4 mg disintegrating tablet 4 mg PO Q6H PRN PRN NAUSEA #120 tabs 03/29/20 [Rx Last Taken Unknown] pantoprazole 40 mg tablet,delayed release 40 mg PO BID Check with primary doctor #60 tabs 03/29/20 [Rx Last Taken Unknown] clopidogrel 75 mg tablet 75 mg PO DAILY 02/16/22 [History Last Taken Unknown] metoclopramide HCl 5 mg tablet 5 mg PO BID 02/16/22 [History Last Taken Unknown] Allergy/AdvReac Type Severity Reaction Status Date / Time No Known Allergies Allergy Verified 05/27/21 12:15 Family History Mother Myocardial infarction Surgical History History of loop recorder (11/22/19) Social History household members: other Smoking Status: Never smoker alcohol intake: current alcohol intake frequency: a few times a week substance use type: does not use caffeine: Yes Type: coffee and tea ROS ROS Narrative Patient's daughter states that he has not been eating much over the past few months and only eating small bites. He has lost roughly 20 pounds in the past 5 months. Review of Systems ROS Unobtainable: other Details: Due to lethargy Vital Signs Vital Signs Vital Signs: 02/16/22 15:55 02/16/22 15:54 02/16/22 18:01 Temperature 36.9 C 36.9 C Temperature Source Oral Oral Pulse Rate 78 78 83 Respiratory Rate 16 16 16 Blood Pressure 139/95 H 137/90 H 121/93 H Blood Pressure Mean 109 105 102 Pulse Ox 94 94 97 Oxygen Delivery Method Room Air Room Air Room Air 02/16/22 18:26 Temperature 36.9 C Temperature Source Oral Pulse Rate 97 Respiratory Rate 16 Blood Pressure 116/96 H Blood Pressure Mean 102 Pulse Ox 97 Oxygen Delivery Method Room Air Weight Weight: 60.8 kg Body Mass Index (BMI) 20.9 Physical Exam Const Constitutional Narrative: Patient does answer some questions but is very lethargic. Eyes PERRL Resp normal respiratory effort and no retractions Cardio regular rate, regular rhythm, S1 normal heart sound and S2 normal heart sound GI normal to inspection, nondistended, normoactive bowel sounds, soft to palpation, non-tender and non-distended GI Narrative: Rectal exam shows no obvious external hemorrhoids but does show gelatinous blood clots as well as blood that has saturated and when around his undergarment and saturated the bedding beneath. Extremity normal to inspection Neuro Sensorium / Orientation: awake Psych Psych Narrative: Flat affect Results Lab / Micro Data Result Diagrams: 02/16/22 16:15 02/16/22 16:15 Labs: Laboratory Results - last 24 hr 02/16/22 16:15: WBC 6.8, RBC 4.73, Hgb 13.2, Hct 40.2, MCV 85.0, MCH 27.9, MCHC 32.8, RDW Std Deviation 46.8 H, RDW Coeff of Brunilda 15.2 H, Plt Count 270, MPV 8.8, Immature Gran % (Auto) 1.300 H, Neut % (Auto) 56.0, Lymph % (Auto) 33.7, [place] % (Auto) 8.1, Eos % (Auto) 0.3, Baso % (Auto) 0.6, Absolute Neuts (auto) 3.8, Absolute Lymphs (auto) 2.28, Nucleated RBC % 0 02/16/22 16:15: PT 13.7, INR 1.1, APTT 30.6 02/16/22 16:15: Sodium 143, Potassium 3.6, Chloride 107, Carbon Dioxide 29.0, Anion Gap 7, BUN 13, Creatinine 0.79, Estim Creat Clear Calc 53.20, Est GFR (MDRD) Af Amer 123, Est GFR (MDRD) Non-Af 101, BUN/Creatinine Ratio 16.5, Glucose 141 H, Calcium 9.1, Total Bilirubin 0.90, AST 20, ALT 18, Alkaline Phosphatase 94, Total Protein 6.7, Albumin 2.7 L, Globulin 4.0, Albumin/Globulin Ratio 0.7 L 02/16/22 16:15: Lactic Acid 1.5 02/16/22 16:15: Blood Type B POSITIVE, Antibody Screen NEGATIVE Assessment & Plan Assessment/Plan (1) Hemorrhagic shock: PLAN: Secondary to GI bleed Suspected lower Patient will receive IV fluids Monitor his hemoglobin. Patient to be typed and crossed in the emergency room. No transfusion at this point. Transport Assistant consult (2) GI bleed: PLAN: Suspected lower source GI consult discussed with Dr. Kuhn, gastroenterology. He advises CT angiogram of the abdomen pelvis Even though this suspected to be lower given his tenuous status will initiate a pantoprazole drip for the time being (3) Adult failure to thrive: PLAN: PT OT evaluate and treat Once patient able to take oral may consider nutrition consultation (4) CVA (cerebral vascular accident): PLAN: Patient on aspirin and clopidogrel which are being held in light of GI bleed PLAN: Plan Chronic conditions Diabetes mellitus type 2: Patient has not been taking medications at home partly due to the fact is not eating much. Patient be n.p.o. and he will be a sign scale insulin. BPH: Tamsulosin will be held Hyperlipidemia: Hold atorvastatin VTE prophylaxis with SCDs as chemical prophylaxis contraindicated in light of acute hemorrhage. CODE STATUS: Addressed with the patient's family with the emergency room physician. Patient is full CODE STATUS. Discussed with the patient's 2 family members at bedside and updated them on his clinical condition and updated them about the plan for the CT angiogram and that GI will be involved in the patient's care and he may require endoscopy. Is as well as I updated them on his devolving clinical status necessitating admission to the intensive care unit. Charges/Coding Visit Charges Inpatient E&M: 50225 Init Hosp L3
--- NOTE | 2022-02-16 19:00 | CT_ITS ---
INDICATION: Active bleeding EXAMINATION: CTA abdomen and pelvis - TECHNIQUE: Routine abdominal CT angiogram protocol was performed with IV contrast. MIP images provided. A radiation dose optimization technique was used for this scan. IV Contrast dosage and agent: Radiation dose DLP mGy / cm. COMPARISON: 05/23/2021 FINDINGS: Lung bases: Normal. Liver: Normal. No bile ductal dilatation. Gallbladder: Normal. Spleen: Normal. Adrenal gland: Normal. Kidneys: Normal. No hydronephrosis or stone formation. Pancreas:Normal. Bowel gas pattern: Nonobstructive. Appendix: Normal. Free air: None. Free fluid: None. Pelvis: Pelvic organs: No mass lesion noted. Bone survey: No aggressive bony lesions. No acute fractures. Adenopathy: No significant pathologic adenopathy detected. Other: None. Vascular: Normal vascular anatomy, CT/CT ANGIO ABD&PEL W/O&W/DYE IMPRESSION: Normal CT angiogram of the abdomen and pelvis. Electronically Signed: Braulio Lamb MD at 19:24 EDT ,
[2022-02-16] MEDS: HYDROmorphone 0.5 MG/0.5 ML SYRINGE IV (19:48)
[2022-02-16] MEDS: 0.9% Saline Lock 10 ML Syringe IV (20:10)
[2022-02-16] MEDS: Ondansetron 4 MG/2 ML Vial IV (20:14)
[2022-02-16] MEDS: 0.9% Normal Saline 1,000 ML 200 ML IV (20:17)
[2022-02-16 20:55] LABS: Hematocrit 33.8 % (40-54); Hemoglobin 11.1 g/dL (13.0-16.5)
--- NOTE | 2022-02-16 21:48 | PCM.CONS.GEN ---
Assessment & Plan Assessment/Plan (1) GI bleed: PLAN: It appears as if he had a lower GI bleed from unknown source. Differential diagnosis with his weight loss does include neoplasia, diverticular bleed, angiodysplasia. At this time he seems stable and does not need emergent colonoscopy. Recommend to follow his blood count. N.p.o. Continue PPI drip just in case of bleed is near the ligament of Treitz. HPI Consult Data Date of Consult: 02/16/22 HPI Narrative HPI Narrative: gustabo BRASWELL a76 M presented to the ED with bright red blood per rectum. All of history obtained from the patient's family because patient is not an Irish speaking. Patient does not respond to any questioning and has a very flat affect. He was reported to family of having some bleeding earlier today. In the ED he was noted to have another bleeding episode. Since then he has been transferred up to the ICU and started on Protonix drip. His blood pressure has been stable not requiring any pressor therapy and he has been mildly tachycardic. [facility] Medical History (Updated 02/16/22 @ 19:[address] Trell Painting, ) Anxiety and depression BPH (benign prostatic hyperplasia) CVA (cerebral vascular accident) Diabetes mellitus HLD (hyperlipidemia) HTN (hypertension) Home Medications aspirin 81 mg tablet,delayed release (Adult Aspirin Regimen) 81 mg PO DAILY@0800 [facility] 02/10/19 [History Last Taken 11/02/19] atorvastatin 40 mg tablet 40 mg PO QHS Check with primary doctor ##0 11/15/19 [Rx Last Taken 03/20/20 19:59] tamsulosin 0.4 mg capsule 0.8 mg PO QHS Check with primary doctor 03/21/20 [History Last Taken Unknown] acetaminophen 500 mg tablet 1,000 mg PO Q6H PRN PRN Pain Score 1-03/2503/29/20 [Rx Last Taken Unknown] menthol 0.44 %-zinc oxide 20.6 % topical ointment 1 applic topical 0600,2200 03/29/20 [Rx Last Taken Unknown] ondansetron 4 mg disintegrating tablet 4 mg PO Q6H PRN PRN NAUSEA #120 tabs 03/29/20 [Rx Last Taken Unknown] pantoprazole 40 mg tablet,delayed release 40 mg PO BID Check with primary doctor #60 tabs 03/29/20 [Rx Last Taken Unknown] clopidogrel 75 mg tablet 75 mg PO DAILY 02/16/22 [History Last Taken Unknown] metoclopramide HCl 5 mg tablet 5 mg PO BID 02/16/22 [History Last Taken Unknown] Allergy/AdvReac Type Severity Reaction Status Date / Time No Known Allergies Allergy Verified 05/27/21 12:15 Family History Mother Myocardial infarction Surgical History History of loop recorder (11/22/19) Social History household members: other Smoking Status: Never smoker alcohol intake: current alcohol intake frequency: a few times a week substance use type: does not use caffeine: Yes Type: coffee and tea ROS ROS Narrative Patient's daughter states that he has not been eating much over the past few months and only eating small bites. He has lost roughly 20 pounds in the past 5 months. Review of Systems ROS Unobtainable: other Details: Due to lethargy Physical Exam Const Constitutional Narrative: Patient does not answer any questions Eyes PERRL Resp normal respiratory effort and no retractions Cardio regular rate, regular rhythm, S1 normal heart sound and S2 normal heart sound GI normal to inspection, nondistended, normoactive bowel sounds, soft to palpation, non-tender and non-distended GI Narrative: Rectal exam does show some old blood in the rectal vault but no bright red blood per rectum. Extremity normal to inspection Neuro Sensorium / Orientation: awake Psych Psych Narrative: Flat affect Lab / Micro Data Result Diagrams: 02/16/22 20:45 02/16/22 16:15 Labs: Laboratory Results - last 24 hr 02/16/22 16:15: WBC 6.8, RBC 4.73, Hgb 13.2, Hct 40.2, MCV 85.0, MCH 27.9, MCHC 32.8, RDW Std Deviation 46.8 H, RDW Coeff of Brunilda 15.2 H, Plt Count 270, MPV 8.8, Immature Gran % (Auto) 1.300 H, Neut % (Auto) 56.0, Lymph % (Auto) 33.7, [place] % (Auto) 8.1, Eos % (Auto) 0.3, Baso % (Auto) 0.6, Absolute Neuts (auto) 3.8, Absolute Lymphs (auto) 2.28, Nucleated RBC % 0 02/16/22 16:15: PT 13.7, INR 1.1, APTT 30.6 02/16/22 16:15: Sodium 143, Potassium 3.6, Chloride 107, Carbon Dioxide 29.0, Anion Gap 7, BUN 13, Creatinine 0.79, Estim Creat Clear Calc 53.20, Est GFR (MDRD) Af Amer 123, Est GFR (MDRD) Non-Af 101, BUN/Creatinine Ratio 16.5, Glucose 141 H, Calcium 9.1, Total Bilirubin 0.90, AST 20, ALT 18, Alkaline Phosphatase 94, Total Protein 6.7, Albumin 2.7 L, Globulin 4.0, Albumin/Globulin Ratio 0.7 L 02/16/22 16:15: Lactic Acid 1.5 02/16/22 16:15: Blood Type B POSITIVE, Antibody Screen NEGATIVE 02/16/22 16:15: Crossmatch See Detail 02/16/22 20:45: Hgb 11.1 L, Hct 33.8 L Radiology Impression Abdomen/Pelvis CTA 02/16/22 19:00 IMPRESSION: Normal CT angiogram of the abdomen and pelvis. Electronically Signed: Braulio Lamb MD at 19:24 EDT , Charges/Coding Visit Charges Inpatient E&M: 42383 Init Hosp L2
[2022-02-16 22:31] LABS: Bedside Glucose 133 mg/dL (74-106)
[2022-02-17] VITALS (25 sets, daily range): BP systolic 99–136; BP diastolic 64–96; PULSE 70–99; RESP 10–23; TEMP 36.2–36.8; O2SAT 92–100
[2022-02-17] MEDS: 0.9% Saline Lock 10 ML Syringe IV ×2 (01:53→19:46)
[2022-02-17] MEDS: proCHLORPERazine 10 MG/2 ML Vial 5 MG IV (01:53)
[2022-02-17 05:09] LABS: Absolute Neutrophil Count 6.6 X10^3/uL (2.0-7.7); Basophil# 0.04 X10^3/uL; Basophil% 0.5 % (0-1); Eosinophil# 0.01 X10^3/uL; Eosinophils% 0.1 % (0-5); Hematocrit 31.6 % (40-54); Hemoglobin 9.9 g/dL (13.0-16.5); Lymphocyte % 15.9 % (19-41); Mean Corp Hgb Conc 31.3 g/dL (32-36); Mean Corpuscular Hgb 27.4 pg (27.0-32.0); Mean Corpuscular Volume 87.5 fL (80-94); Mean Platelet Vol. 8.7 fl (6.2-12.0); Monocyte# 0.65 X10^3/uL; Monocyte% 7.4 % (0-10); NRBC Flagged by Analyzer 0 % (0-5); Neutrophil # 6.57 X10^3/uL (2.7-7.7); Neutrophil % 74.8 % (47-70); Platelet Count 222 K/mm3 (150-450); RBC Distribution Width CV 15.1 % (11.6-14.6); RBC Distribution Width SD 47.8 fl (35.1-43.9); Red Blood Count 3.61 M/mm3 (4.6-6.2); White Blood Count 8.8 K/mm3 (4.4-11.0)
[2022-02-17 05:40] LABS: Anion Gap 8 (5-15); BUN 12 mg/dL (7-18); BUN/Creat Ratio 22.1 RATIO (10-20); Calcium,Total 8.2 mg/dL (8.5-10.1); Chloride 113 mmol/L (98-107); Creatinine, Serum 0.54 mg/dL (0.70-1.30); EST Glomerular Filtration Rate 156 mL/min (>60); Est Glom Filt Rate - Afr Amer 188 mL/min (>60); Estimated Creatinine Clearance 42.88 ml/min; Glucose 132 mg/dL (74-106); Potassium 3.3 mmol/L (3.5-5.1); Sodium Level 145 mmol/L (136-145)
--- NOTE | 2022-02-17 07:04 | EX.PCM.CONCC ---
Assessment & Plan Assessment/Plan (1) Acute blood loss anemia: (2) GI bleed: (3) Debility: PLAN: Plan RECOMMENDATIONS: 1. Await GI recommendations 2. No transfusions at this time 3. Obtain every 6 H&H 4. Fluid boluses as necessary 5. Possible discussion with family about goals of therapy 6. Transfuse to keep hemoglobin greater than 8 while actively bleeding IMPRESSIONS: 1. Acute blood loss anemia secondary to acute GI bleed Clinical suspicion for lower GI bleed. Consultation with GI has already been performed. Patient does appear to be hemodynamically stable to tolerate a colon prep if necessary. Blood pressures have remained stable following fluid boluses. Patient does not reach any indication for transfusions at this time. However, given patient's large bowel movement this morning, will check H&H every 6 as patient is down over 3 g in hemoglobin. Bowel ischemia would be a consideration, but lactate was not impressive on presentation. 2. Failure to thrive following CVA/weight loss Patient reportedly has had significant decline in overall condition following stroke and of his . Patient with significant weight loss. Family continues to wish to be aggressive. Therapies have been consulted. 3. Debility/diabetes mellitus/BPH/hyperlipidemia/history of falls Complicates care, management, recovery and prognosis. Blood sugars have been acceptable. Patient is currently NPO. Patient may require Bansal catheter if urinary retention continues. HPI Consult Data Date of Consult: 02/17/22 HPI Narrative Reason for Consultation: GI bleed HPI Narrative: KIMBERLEE DEAN is a 76 M, with past medical history listed below, who presents to [facility] on 02/16/2022 secondary to dark blood per rectum. Patient reportedly had multiple family members in the ER serving as informants. Patient reportedly has a history of hemorrhoids and reo asset manager had noted some dark stool in the diaper. This was described to range from bright red blood to black. Patient reportedly has not eaten well since the of his and had been losing some weight. Patient had reported generalized aches, but otherwise was not very mobile. In the ER, patient was afebrile, normotensive and saturating well on room air. Laboratory work-up showed a hemoglobin of 13.2, white blood cell count of 6.8 and platelets of 270. Coagulation studies were within normal limits. Chemistries did show an elevated bicarbonate of 29 with a glucose of 141. LFTs were unremarkable. Lactate was 1.5. Patient was confirmed to have hemorrhoids on anoscopic examination without abnormal mucosa. Patient reportedly had some hypotension in the ER to a systolic of 79 and was advised to get a 1 L of fluids and then transferred to the intensive care unit for further evaluation. Patient was seen by GI overnight and placed on a Protonix drip. Further information is not available at this time. Patient reportedly had several family members providing information previously, but Eritrean is his second language. Patient reportedly understands Eritrean and is able to shake his head no to any pain or dyspnea. Nursing had not reported any significant bleeding over most of the evening with 1 bowel movement that was bloody measuring approximately 1 cup. Patient also required a straight cath secondary to urinary retention. This morning, patient had a moderate bloody bowel movement. Review of systems otherwise negative from a constitutional, HEENT, respiratory, cardiovascular, GI, genitourinary, musculoskeletal, skin, neurologic, psychiatric and hematologic system unless stated above. [facility] Medical History Anxiety and depression BPH (benign prostatic hyperplasia) CVA (cerebral vascular accident) Diabetes mellitus HLD (hyperlipidemia) HTN (hypertension) Home Medications aspirin 81 mg tablet,delayed release (Adult Aspirin Regimen) 81 mg PO DAILY@0800 [facility] 02/10/19 [History Last Taken 11/02/19] atorvastatin 40 mg tablet 40 mg PO QHS Check with primary doctor ##0 11/15/19 [Rx Last Taken 03/20/20 19:59] tamsulosin 0.4 mg capsule 0.8 mg PO QHS Check with primary doctor 03/21/20 [History Last Taken Unknown] acetaminophen 500 mg tablet 1,000 mg PO Q6H PRN PRN Pain Score 1-03/2503/29/20 [Rx Last Taken Unknown] menthol 0.44 %-zinc oxide 20.6 % topical ointment 1 applic topical 0600,2200 03/29/20 [Rx Last Taken Unknown] ondansetron 4 mg disintegrating tablet 4 mg PO Q6H PRN PRN NAUSEA #120 tabs 03/29/20 [Rx Last Taken Unknown] pantoprazole 40 mg tablet,delayed release 40 mg PO BID Check with primary doctor #60 tabs 03/29/20 [Rx Last Taken Unknown] clopidogrel 75 mg tablet 75 mg PO DAILY 02/16/22 [History Last Taken Unknown] metoclopramide HCl 5 mg tablet 5 mg PO BID 02/16/22 [History Last Taken Unknown] Allergy/AdvReac Type Severity Reaction Status Date / Time No Known Allergies Allergy Verified 05/27/21 12:15 Family History Mother Myocardial infarction Surgical History History of loop recorder (11/22/19) Social History household members: children and other housing: house Smoking Status: Never smoker alcohol intake: current alcohol intake frequency: a few times a week substance use type: does not use caffeine: Yes Type: coffee and tea ROS ROS Narrative Unable to obtain complete ROS secondary to language barrier Physical Exam Const alert Constitutional Narrative: Patient does not answer any questions. Opens eyes to voice and tracks appropriately General Appearance: frail HEENT HEENT Narrative: Temporal wasting noted. Edentulous. No dentures in place. Eyes PERRL, conjunctivae normal and no scleral icterus Neck no lymphadenopathy and supple Resp normal respiratory effort and no retractions Resp Narrative: Fair effort. Auscultation: Negative for rales, rhonchi or wheezes Cardio regular rate, regular rhythm, S1 normal heart sound, S2 normal heart sound, no murmurs, no rub and no gallops GI normal to inspection, nondistended, normoactive bowel sounds, soft to palpation, non-tender and non-distended Extremity normal to inspection General Extremity: clubbing; Negative for edema Skin no rashes or lesions noted Skin Narrative: Dermal atrophy noted. No perianal lacerations noted Neuro Neuro Narrative: Global weakness noted Sensorium / Orientation: awake Psych Psych Narrative: Flat affect Lab / Micro Data Attestation: I reviewed the patient's lab results. Result Diagrams: 02/17/22 05:00 02/17/22 05:00 Labs: Laboratory Results - last 24 hr 02/16/22 16:15: WBC 6.8, RBC 4.73, Hgb 13.2, Hct 40.2, MCV 85.0, MCH 27.9, MCHC 32.8, RDW Std Deviation 46.8 H, RDW Coeff of Brunilda 15.2 H, Plt Count 270, MPV 8.8, Immature Gran % (Auto) 1.300 H, Neut % (Auto) 56.0, Lymph % (Auto) 33.7, [place] % (Auto) 8.1, Eos % (Auto) 0.3, Baso % (Auto) 0.6, Absolute Neuts (auto) 3.8, Absolute Lymphs (auto) 2.28, Nucleated RBC % 0 02/16/22 16:15: PT 13.7, INR 1.1, APTT 30.6 02/16/22 16:15: Sodium 143, Potassium 3.6, Chloride 107, Carbon Dioxide 29.0, Anion Gap 7, BUN 13, Creatinine 0.79, Estim Creat Clear Calc 53.20, Est GFR (MDRD) Af Amer 123, Est GFR (MDRD) Non-Af 101, BUN/Creatinine Ratio 16.5, Glucose 141 H, Calcium 9.1, Total Bilirubin 0.90, AST 20, ALT 18, Alkaline Phosphatase 94, Total Protein 6.7, Albumin 2.7 L, Globulin 4.0, Albumin/Globulin Ratio 0.7 L 02/16/22 16:15: Lactic Acid 1.5 02/16/22 16:15: Blood Type B POSITIVE, Antibody Screen NEGATIVE 02/16/22 16:15: Crossmatch See Detail 02/16/22 20:45: Hgb 11.1 L, Hct 33.8 L 02/16/22 22:00: POC Glucose 133 H 02/17/22 05:00: WBC 8.8, RBC 3.61 L, Hgb 9.9 L, Hct 31.6 L, MCV 87.5, MCH 27.4, MCHC 31.3 L, RDW Std Deviation 47.8 H, RDW Coeff of Brunilda 15.1 H, Plt Count 222, MPV 8.7, Immature Gran % (Auto) 1.300 H, Neut % (Auto) 74.8 H, Lymph % (Auto) 15.9 L, [place] % (Auto) 7.4, Eos % (Auto) 0.1, Baso % (Auto) 0.5, Absolute Neuts (auto) 6.6, Absolute Lymphs (auto) 1.40, Nucleated RBC % 0 02/17/22 05:00: Sodium 145, Potassium 3.3 L, Chloride 113 H, Carbon Dioxide 24.0, Anion Gap 8, BUN 12, Creatinine 0.54 L, Estim Creat Clear Calc 42.88, Est GFR (MDRD) Af Amer 188, Est GFR (MDRD) Non-Af 156, BUN/Creatinine Ratio 22.1 H, Glucose 132 H, Calcium 8.2 L Radiology Impression Abdomen/Pelvis CTA 02/16/22 19:00 IMPRESSION: Normal CT angiogram of the abdomen and pelvis. Electronically Signed: Braulio Lamb MD at 19:24 EDT , Charges/Coding Visit Charges Inpatient E&M: 22558 Init Hosp L3
--- NOTE | 2022-02-17 07:07 | PCM.PN.HOSP ---
Subjective Subjective No further bleeding this shift. BP has remained stable. Catheter being placed in ICU, pt complained of some discomfort with the placement. Objective Data Objective Data Vital Signs: Vital Signs Temp Pulse Resp BP Pulse Ox O2 Del Method O2 Flow Rate 36.6 C 78 15 118/79 94 Room Air 0 02/17/22 04:00 02/17/22 07:00 02/17/22 07:00 02/17/22 07:00 02/17/22 07:00 02/17/22 07:00 02/17/22 00:00 Oxygen Flow Rate (L/min) 0 Oxygen Delivery Method Room Air Weight: 50 kg Body Mass Index (BMI) 16.9 Intake & Output: Intake and Output for Last 24 Hours 02/15/22 02/16/22 02/17/22 23:59 23:59 23:59 Intake Total 1000 / 1000 1097.83 / 1097.83 Output Total 275 / 275 Balance 1000 / 1000 822.83 / 822.83 Lab / Micro Data Result Diagrams: 02/17/22 11:10 02/17/22 05:00 Labs: Laboratory Results - last 24 hr 02/16/22 16:15: WBC 6.8, RBC 4.73, Hgb 13.2, Hct 40.2, MCV 85.0, MCH 27.9, MCHC 32.8, RDW Std Deviation 46.8 H, RDW Coeff of Brunilda 15.2 H, Plt Count 270, MPV 8.8, Immature Gran % (Auto) 1.300 H, Neut % (Auto) 56.0, Lymph % (Auto) 33.7, [place] % (Auto) 8.1, Eos % (Auto) 0.3, Baso % (Auto) 0.6, Absolute Neuts (auto) 3.8, Absolute Lymphs (auto) 2.28, Nucleated RBC % 0 02/16/22 16:15: PT 13.7, INR 1.1, APTT 30.6 02/16/22 16:15: Sodium 143, Potassium 3.6, Chloride 107, Carbon Dioxide 29.0, Anion Gap 7, BUN 13, Creatinine 0.79, Estim Creat Clear Calc 53.20, Est GFR (MDRD) Af Amer 123, Est GFR (MDRD) Non-Af 101, BUN/Creatinine Ratio 16.5, Glucose 141 H, Calcium 9.1, Total Bilirubin 0.90, AST 20, ALT 18, Alkaline Phosphatase 94, Total Protein 6.7, Albumin 2.7 L, Globulin 4.0, Albumin/Globulin Ratio 0.7 L 02/16/22 16:15: Lactic Acid 1.5 02/16/22 16:15: Blood Type B POSITIVE, Antibody Screen NEGATIVE 02/16/22 16:15: Crossmatch See Detail 02/16/22 20:45: Hgb 11.1 L, Hct 33.8 L 02/16/22 22:00: POC Glucose 133 H 02/17/22 05:00: WBC 8.8, RBC 3.61 L, Hgb 9.9 L, Hct 31.6 L, MCV 87.5, MCH 27.4, MCHC 31.3 L, RDW Std Deviation 47.8 H, RDW Coeff of Brunilda 15.1 H, Plt Count 222, MPV 8.7, Immature Gran % (Auto) 1.300 H, Neut % (Auto) 74.8 H, Lymph % (Auto) 15.9 L, [place] % (Auto) 7.4, Eos % (Auto) 0.1, Baso % (Auto) 0.5, Absolute Neuts (auto) 6.6, Absolute Lymphs (auto) 1.40, Nucleated RBC % 0 02/17/22 05:00: Sodium 145, Potassium 3.3 L, Chloride 113 H, Carbon Dioxide 24.0, Anion Gap 8, BUN 12, Creatinine 0.54 L, Estim Creat Clear Calc 42.88, Est GFR (MDRD) Af Amer 188, Est GFR (MDRD) Non-Af 156, BUN/Creatinine Ratio 22.1 H, Glucose 132 H, Calcium 8.2 L Radiography Diagnostic Testing: Radiology Impression Abdomen/Pelvis CTA 02/16/22 19:00 IMPRESSION: Normal CT angiogram of the abdomen and pelvis. Electronically Signed: Braulio Lamb MD at 19:24 EDT , Physical Exam Const alert Constitutional Narrative: cachectic. follows some commands. Resp normal respiratory effort, no retractions and no use of accessory muscles Cardio regular rate, regular rhythm, S1 normal heart sound and S2 normal heart sound GI normal to inspection, nondistended, normoactive bowel sounds, soft to palpation, non-tender and non-distended Extremity normal to inspection Neuro moves all extremities, no focal motor deficits and no sensory deficits noted Sensorium / Orientation: awake and alert Psych affect normal Assessment & Plan Assessment/Plan (1) Hemorrhagic shock: PLAN: Resolved Secondary to GI bleed Suspected lower Patient will receive IV fluids Monitor his hemoglobin. Patient to be typed and crossed in the emergency room. No transfusion at this point. Asphalt Distributor Operator consult (2) GI bleed: PLAN: Suspected lower source GI consult 02/16: discussed with Dr. Kuhn, gastroenterology. He advises CT angiogram of the abdomen pelvis Even though this suspected to be lower given his tenuous status will initiate a pantoprazole drip for the time being (3) Acute blood loss anemia: PLAN: Hg dropped from 13.2 to 9.9. Continue to monitor No need for transfusion (4) Adult failure to thrive: PLAN: PT OT evaluate and treat (5) CVA (cerebral vascular accident): PLAN: Patient on aspirin and clopidogrel which are being held in light of GI bleed DW pt's son. He states that since his CVA his communication is minimal. (6) Severe protein-calorie malnutrition: PLAN: Consult nutrition Has only been eating small amounts for months preceeding this. (7) Gastroparesis: PLAN: ST eval. Discussed future testing with family including: MBS, endoscopy PLAN: Plan Chronic conditions Diabetes mellitus type 2: Patient has not been taking medications at home partly due to the fact is not eating much. Patient be n.p.o. and he will be a sign scale insulin. BPH: Tamsulosin will be held Hyperlipidemia: Hold atorvastatin VTE prophylaxis with SCDs as chemical prophylaxis contraindicated in light of acute hemorrhage. CODE STATUS: Addressed with the patient's family with the emergency room physician. Patient is full CODE STATUS. Greater than 35 minutes of which greater than 50% of the time was conceling the family about GI bleed, shock, anemia and discussing with them about malnutrition and gastroparesis. Charges/Coding Visit Charges Inpatient E&M: 45771 Subs Hosp L3
[2022-02-17] MEDS: Potassium Chloride 10mEq/100mL 10 MEQ/100 ML IV.SOLN. 100 MEQ IV BOLUS ×4 (08:00→11:33)
[2022-02-17 08:36] LABS: Bedside Glucose 112 mg/dL (74-106)
[2022-02-17 11:25] LABS: Hemoglobin 10.5 g/dL (13.0-16.5)
[2022-02-17 11:35] LABS: Bedside Glucose 118 mg/dL (74-106)
[2022-02-17 16:45] LABS: Hemoglobin 9.7 g/dL (13.0-16.5)
[2022-02-17 16:55] LABS: Bedside Glucose 116 mg/dL (74-106)
[2022-02-17] MEDS: Ondansetron 4 MG/2 ML Vial IV (19:45)
[2022-02-18] VITALS (14 sets, daily range): BP systolic 95–133; BP diastolic 71–99; PULSE 80–112; RESP 14–24; TEMP 36.3–37.2; O2SAT 94–100
[2022-02-18 03:28] LABS: Absolute Lymphocyte Count 1.77 X10^3/uL (0.83-4.51); Absolute Neutrophil Count 8.9 X10^3/uL (2.0-7.7); Basophil# 0.05 X10^3/uL; Basophil% 0.4 % (0-1); Eosinophil# 0.01 X10^3/uL; Eosinophils% 0.1 % (0-5); Hematocrit 29.8 % (40-54); Hemoglobin 9.8 g/dL (13.0-16.5); Lymphocyte # 1.77 X10^3/ul (0.83-4.51); Lymphocyte % 14.9 % (19-41); Mean Corp Hgb Conc 32.9 g/dL (32-36); Mean Corpuscular Hgb 28.4 pg (27.0-32.0); Mean Corpuscular Volume 86.4 fL (80-94); Mean Platelet Vol. 8.4 fl (6.2-12.0); Monocyte% 7.6 % (0-10); NRBC Flagged by Analyzer 0 % (0-5); Neutrophil # 8.93 X10^3/uL (2.7-7.7); Neutrophil % 75.3 % (47-70); Platelet Count 232 K/mm3 (150-450); RBC Distribution Width CV 15.5 % (11.6-14.6); RBC Distribution Width SD 48.3 fl (35.1-43.9); Red Blood Count 3.45 M/mm3 (4.6-6.2); White Blood Count 11.9 K/mm3 (4.4-11.0)
[2022-02-18 03:45] LABS: Anion Gap 8 (5-15); BUN 11 mg/dL (7-18); BUN/Creat Ratio 22.2 RATIO (10-20); Calcium,Total 8.1 mg/dL (8.5-10.1); Chloride 109 mmol/L (98-107); EST Glomerular Filtration Rate 173 mL/min (>60); Est Glom Filt Rate - Afr Amer 209 mL/min (>60); Estimated Creatinine Clearance 43.75 ml/min; Glucose 122 mg/dL (74-106); Potassium 3.7 mmol/L (3.5-5.1); Sodium Level 140 mmol/L (136-145)
--- NOTE | 2022-02-18 05:55 | PCM.PN.INT ---
Assessment & Plan Assessment/Plan (1) Acute blood loss anemia: PLAN: Plan RECOMMENDATIONS: 1. Continue to monitor H&H and transfuse if hemoglobin drops below 7 g/dL. 2. Continue PPI therapy. 3. Endoscopic evaluation need per gastroenterology. 4. Encourage incentive spirometer use and mobilize patient as tolerated. 5. The patient is medically stable for transfer out of the intensive care unit. IMPRESSIONS: 1. Acute blood loss anemia Clinical concern for lower GI bleed. However, the patient remains hemodynamically stable on room air. Recommend continuing to monitor H&H and transfuse if hemoglobin drops below 7 g/dL. Continue PPI therapy. Defer need for endoscopic evaluation to gastroenterology, who is following to assist with medical management. 2. Failure to thrive following CVA Nutrition services and physical therapy to work with the patient. 3. Generalized debility/diabetes mellitus/BPH/hyperlipidemia Complicates care, management, recovery and prognosis. Continue home medications as indicated. This note was generated with [employer] dictation software. It may contain incorrect words, spelling, and punctuation that were not noted in checking the note before signing. Subjective Subjective The patient was seen and examined at the bedside this morning. Events from the last 24 hours have been reviewed. The patient is currently afebrile, hemodynamically stable and maintaining appropriate oxygen saturations on room air. The patient is currently documented to be overall net +1.6 L for the hospitalization. No bloody bowel movements have been noted by the nursing staff for over 24 hours. The patient denies any abdominal pain this morning. Blood counts remain stable. Objective Data Objective Data The patient's most recent lab work, culture data and imaging studies have all been personally reviewed. Vital Signs: Vital Signs Temp Pulse Resp BP Pulse Ox O2 Del Method O2 Flow Rate 97.6 F L 89 16 102/84 H 97 Room Air 0 02/18/22 04:00 02/18/22 05:00 02/18/22 05:00 02/18/22 05:00 02/18/22 05:00 02/18/22 05:00 02/17/22 00:00 Oxygen Flow Rate (L/min) 0 Oxygen Delivery Method Room Air Weight: 110 lb 3.698 oz Body Mass Index (BMI) 16.9 Intake & Output: Intake and Output for Last 24 Hours 02/16/22 02/17/22 02/18/22 23:59 23:59 23:59 Intake Total 1000 / 1000 1595.66 / 1595.66 100 / 100 Output Total 965 / 1015 80 / 80 Balance 1000 / 1000 630.66 / 580.66 Medical Nutrition Assessment Dietitian: Malnutrition Criteria Met Start: 02/17/22 09:56 Freq: Status: Active Protocol: Document 02/17/22 09:56 SLA (Rec: 02/17/22 09:56 SLA Desktop) Nutrition Malnutrition Evidence of Malnutrition Exists Yes Malnutrition (severe): Chronic Evidenced By Suboptimal Energy Intake ( Severe),Weight Loss (Severe), Physical Changes (Severe) Clinical Problem Chronic Disease or Condition Related Malnutrition Etiology related to inability to consume adequate nutrition to meet est nutritional needs Signs/Symptoms as evidenced by pt with decreased appetite in past few months and is only eating small bites and wt loss of 26% x 10 mo / wt loss of 20.6% x 4 mo. Pt noted to have fat/ muscle wasting in orbital, temporal, buccal, clavicle/ acromium areas and arms/legs. Status Active Problem Recommendation Dietitian Recommendations/Changes When po diet resumes, rec liberal regular diet When po diet resumes, rec ensure plus high protein 4x/ day with medpass for increased nutrition if consumed Monitor for signs/symptoms of refeeding syndrome. Lab / Micro Data Attestation: I reviewed the patient's lab results. Result Diagrams: 02/18/22 03:15 02/18/22 03:15 Labs: Laboratory Results - last 24 hr 02/17/22 08:04: POC Glucose 112 H 02/17/22 10:48: POC Glucose 118 H 02/17/22 11:10: Hgb 10.5 L, Hct 33.0 L 02/17/22 16:32: POC Glucose 116 H 02/17/22 16:35: Hgb 9.7 L, Hct 30.0 L 02/18/22 03:15: WBC 11.9 H, RBC 3.45 L, Hgb 9.8 L, Hct 29.8 L, MCV 86.4, MCH 28.4, MCHC 32.9 D, RDW Std Deviation 48.3 H, RDW Coeff of Brunilda 15.5 H, Plt Count 232, MPV 8.4, Immature Gran % (Auto) 1.700 H, Neut % (Auto) 75.3 H, Lymph % (Auto) 14.9 L, [place] % (Auto) 7.6, Eos % (Auto) 0.1, Baso % (Auto) 0.4, Absolute Neuts (auto) 8.9 H, Absolute Lymphs (auto) 1.77, Nucleated RBC % 0 02/18/22 03:15: Sodium 140, Potassium 3.7, Chloride 109 H, Carbon Dioxide 23.0, Anion Gap 8, BUN 11, Creatinine 0.50 L, Estim Creat Clear Calc 43.75, Est GFR (MDRD) Af Amer 209, Est GFR (MDRD) Non-Af 173, BUN/Creatinine Ratio 22.2 H, Glucose 122 H, Calcium 8.1 L Physical Exam Const alert and no apparent distress General Appearance: cooperative and frail HEENT normocephalic, head/scalp atraumatic and moist oral mucous membranes Eyes PERRL, EOMs intact bilaterally and conjunctivae normal Neck supple General: trachea midline Chest inspection of chest normal Resp normal respiratory effort Auscultation: Negative for rales, rhonchi or wheezes Cardio regular rate and regular rhythm GI normal to inspection, nondistended, normoactive bowel sounds Extremity no clubbing, cyanosis or edema Skin no rashes or lesions noted Neuro CN's II-XII intact bilaterally and no focal motor deficits Psych Mood & Affect: flat affect Charges/Coding Visit Charges Inpatient E&M: 74439 Subs Hosp L2
--- NOTE | 2022-02-18 07:21 | PN.HOSP_ITS ---
Subjective Subjective Patient is a 76-year-old gentleman admitted with bleeding per rectum. Patient was started on Protonix drip admitted to the intensive care unit with consultation placed to GI Objective Data Objective Data Vital Signs: Vital Signs Temp Pulse Resp BP Pulse Ox O2 Del Method O2 Flow Rate 97.6 F L 90 15 109/84 H 96 Room Air 0 02/18/22 04:00 02/18/22 07:00 02/18/22 07:00 02/18/22 07:00 02/18/22 07:00 02/18/22 07:00 02/17/22 00:00 Oxygen Flow Rate (L/min) 0 Oxygen Delivery Method Room Air Weight: 49.2 kg Body Mass Index (BMI) 16.9 Intake & Output: Intake and Output for Last 24 Hours 02/16/22 02/17/22 02/18/22 23:59 23:59 23:59 Intake Total 1000 / 1000 1595.66 / 1595.66 100 / 100 Output Total 965 / 1015 230 / 230 Balance 1000 / 1000 630.66 / 580.66 -130 / -130 Medical Nutrition Assessment Dietitian: Malnutrition Criteria Met Start: 02/17/22 09:56 Freq: Status: Active Protocol: Document 02/17/22 09:56 SLA (Rec: 02/17/22 09:56 SLA Desktop) Nutrition Malnutrition Evidence of Malnutrition Exists Yes Malnutrition (severe): Chronic Evidenced By Suboptimal Energy Intake ( Severe),Weight Loss (Severe), Physical Changes (Severe) Clinical Problem Chronic Disease or Condition Related Malnutrition Etiology related to inability to consume adequate nutrition to meet est nutritional needs Signs/Symptoms as evidenced by pt with decreased appetite in past few months and is only eating small bites and wt loss of 26% x 10 mo / wt loss of 20.6% x 4 mo. Pt noted to have fat/ muscle wasting in orbital, temporal, buccal, clavicle/ acromium areas and arms/legs. Status Active Problem Recommendation Dietitian Recommendations/Changes When po diet resumes, rec liberal regular diet When po diet resumes, rec ensure plus high protein 4x/ day with medpass for increased nutrition if consumed Monitor for signs/symptoms of refeeding syndrome. Lab / Micro Data Result Diagrams: 02/18/22 03:15 02/18/22 03:15 Labs: Laboratory Results - last 24 hr 02/17/22 08:04: POC Glucose 112 H 02/17/22 10:48: POC Glucose 118 H 02/17/22 11:10: Hgb 10.5 L, Hct 33.0 L 02/17/22 16:32: POC Glucose 116 H 02/17/22 16:35: Hgb 9.7 L, Hct 30.0 L 02/18/22 03:15: WBC 11.9 H, RBC 3.45 L, Hgb 9.8 L, Hct 29.8 L, MCV 86.4, MCH 28.4, MCHC 32.9 D, RDW Std Deviation 48.3 H, RDW Coeff of Brunilda 15.5 H, Plt Count 232, MPV 8.4, Immature Gran % (Auto) 1.700 H, Neut % (Auto) 75.3 H, Lymph % (Auto) 14.9 L, [place] % (Auto) 7.6, Eos % (Auto) 0.1, Baso % (Auto) 0.4, Absolute Neuts (auto) 8.9 H, Absolute Lymphs (auto) 1.77, Nucleated RBC % 0 02/18/22 03:15: Sodium 140, Potassium 3.7, Chloride 109 H, Carbon Dioxide 23.0, Anion Gap 8, BUN 11, Creatinine 0.50 L, Estim Creat Clear Calc 43.75, Est GFR (MDRD) Af Amer 209, Est GFR (MDRD) Non-Af 173, BUN/Creatinine Ratio 22.2 H, Glucose 122 H, Calcium 8.1 L Physical Exam Narrative GENERAL: cooperative HEENT: Atraumatic; EYES; Anicteric, Normal Conjunctiva NECK; supple, normal thyroid, RESPIRATORY: Diminished to auscultation CARDIOVASCULAR: Regular S1 S2, GI: soft, normoactive bowel sounds, : No Renal angle tenderness; EXTREMITIES: No edema, no clubbing, MUSCULOSKELETAL: no muscle wasting NEURO: Awake; no lateralizing signs. SKIN: No Rash PSYCH; Flat affect Assessment & Plan Assessment/Plan (1) Hemorrhagic shock: (2) GI bleed: (3) Acute blood loss anemia: (4) Adult failure to thrive: (5) CVA (cerebral vascular accident): (6) Severe protein-calorie malnutrition: (7) Gastroparesis: PLAN: Plan Patient is a 76-year-old gentleman admitted with bleeding per rectum. Patient was started on Protonix drip admitted to the intensive care unit with consultation placed to GI 1. Hemorrhagic shock secondary to gastrointestinal bleed ? Of unknown source. Patient has been admitted to the intensive care unit and started on Protonix drip monitoring H&H every 6 hours with consultation placed to GI.. Any decision regarding endoscopic evaluation deferred to GI 2. Anemia ? Secondary to acute blood loss anemia from above plan is to transfuse if patient becomes symptomatic or hemoglobin falls below 7 3. History of previous CVA ? Patient is on antiplatelet therapy held in view of above 4. Diabetes mellitus type 2 ? Managed with diet please on Accu-Cheks before meals and at bedtime 5. Dyslipidemia ? Patient is on atorvastatin 6. BPH ? Patient is on tamsulosin this was held in view of relatively low blood pressu re 7. DVT prophylaxis ? Bilateral SCDs Charges/Coding Visit Charges Inpatient E&M: 43674 Subs Hosp L2
[2022-02-18 08:41] LABS: Bedside Glucose 109 mg/dL (74-106)
[2022-02-18 11:40] LABS: Bedside Glucose 106 mg/dL (74-106)
--- NOTE | 2022-02-18 15:32 | PN_ITS ---
Subjective Subjective Patient is the ICU but remains tachycardic. His son and are at the bedside. He has been sleeping off and on. As per his family he is lost approximately 60 pounds over the last 6 months. He is not keeping in much via mouth. He cannot hold down liquids or solids at this time. Currently is only on IV fluids. Objective Data Objective Data Vital Signs: Vital Signs Temp Pulse Resp BP Pulse Ox O2 Del Method O2 Flow Rate 97.5 F L 110 H 16 121/76 H 100 Room Air 0 02/18/22 10:24 02/18/22 10:24 02/18/22 10:24 02/18/22 10:24 02/18/22 10:02/18/22 10:02/17/22 00:00 Oxygen Flow Rate (L/min) 0 Oxygen Delivery Method Room Air Weight: 108 lb 7.479 oz Body Mass Index (BMI) 16.9 Intake & Output: Intake and Output for Last 24 Hours 02/16/22 02/17/22 02/18/22 23:59 23:59 23:59 Intake Total 1000 / 1000 1595.66 / 1595.66 220 / 220 Output Total 965 / 1015 380 / 380 Balance 1000 / 1000 630.66 / 580.66 -160 / -160 Medical Nutrition Assessment Dietitian: Malnutrition Criteria Met Start: 02/17/22 09:56 Freq: Status: Active Protocol: Document 02/18/22 09:37 AG (Rec: 02/18/22 09:38 AG [id number]) Nutrition Malnutrition Evidence of Malnutrition Exists Yes Malnutrition (severe): Chronic Evidenced By Suboptimal Energy Intake ( Severe),Weight Loss (Severe), Physical Changes (Severe) Clinical Problem Chronic Disease or Condition Related Malnutrition Etiology severe, chronic malnutrition related to inadequate energy intake Signs/Symptoms as evidenced by estimated PO intake meeting <75% of estimated energy needs >3 months; unintentional wt loss of 12.9kg/20% x 3-4 months; Severe fat loss/muscle wasting in orbital, temporal, clavicle, acromion areas per physical exam; BMI 17.0 Status Active Problem Recommendation Dietitian Recommendations/Changes Recommend advance diet as tolerated to regular; ensure plus high protein 120mL 4x/day given severe malnutrition. Recommend close monitoring of electrolytes as diet advanced given risk for refeeding syndrome. Lab / Micro Data Result Diagrams: 02/18/22 03:15 02/18/22 03:15 Labs: Laboratory Results - last 24 hr 02/17/22 16:32: POC Glucose 116 H 02/17/22 16:35: Hgb 9.7 L, Hct 30.0 L 02/18/22 03:15: WBC 11.9 H, RBC 3.45 L, Hgb 9.8 L, Hct 29.8 L, MCV 86.4, MCH 28.4, MCHC 32.9 D, RDW Std Deviation 48.3 H, RDW Coeff of Brunilda 15.5 H, Plt Count 232, MPV 8.4, Immature Gran % (Auto) 1.700 H, Neut % (Auto) 75.3 H, Lymph % (Au to) 14.9 L, [place] % (Auto) 7.6, Eos % (Auto) 0.1, Baso % (Auto) 0.4, Absolute Neuts (auto) 8.9 H, Absolute Lymphs (auto) 1.77, Nucleated RBC % 0 02/18/22 03:15: Sodium 140, Potassium 3.7, Chloride 109 H, Carbon Dioxide 23.0, Anion Gap 8, BUN 11, Creatinine 0.50 L, Estim Creat Clear Calc 43.75, Est GFR (MDRD) Af Amer 209, Est GFR (MDRD) Non-Af 173, BUN/Creatinine Ratio 22.2 H, Glucose 122 H, Calcium 8.1 L 02/18/22 08:17: POC Glucose 109 H 02/18/22 11:18: POC Glucose 106 Physical Exam Narrative GENERAL: cooperative HEENT: Atraumatic; EYES; Anicteric, Normal Conjunctiva NECK; supple, normal thyroid, RESPIRATORY: Diminished to auscultation CARDIOVASCULAR: Regular S1 S2, GI: soft, normoactive bowel sounds, : No Renal angle tenderness; EXTREMITIES: No edema, no clubbing, MUSCULOSKELETAL: no muscle wasting NEURO: Awake; no lateralizing signs. SKIN: No Rash PSYCH; Flat affect Assessment & Plan Assessment/Plan (1) Nausea and vomiting: PLAN: Differential diagnosis for nausea vomiting and severe malnutrition could be metabolic such as deficiencies in copper, selenium or manganese. His d iabetes was not severely [id number] so I do not think he has gastroparesis because he does not want to eat. Also in the differential diagnosis would be depression causing his nausea vomiting and failure to thrive. He could also be suffering from Penny esophagitis, erosive esophagitis or peptic ulcer disease. He will undergo an upper endoscopy to evaluate his upper GI tract tomorrow. (2) Severe protein-calorie malnutrition: PLAN: He will undergo a percutaneous endoscopic gastrostomy tube placed tomorrow. The goal would be to prep him via the PEG tube tomorrow and perform colonoscopy on Friday to see why he lost so much weight as neoplasia is top on the differential diagnosis. (3) Acute blood loss anemia: PLAN: Acute blood loss anemia from the lower GI tract. Differential diagnosis would be diverticular, hemorrhoidal, neoplasia, angiodysplasia, telangiectasia, hemangioma, upper GI bleed with rapid transit. He will undergo colonoscopy on Friday for evaluation of his lower GI tract as per the family. They are okay with the plan and this may be updated day by day. Charges/Coding Visit Charges Inpatient E&M: 79948 Subs Hosp L3
[2022-02-18 17:01] LABS: Bedside Glucose 139 mg/dL (74-106)
--- NOTE | 2022-02-18 18:07 | EKG12_ITS ---
Test Reason : PRE-OP Blood Pressure : / mmHG Vent. Rate : 103 BPM Atrial Rate : 103 BPM P-R Int : 156 ms QRS Dur : 082 ms QT Int : 360 ms P-R-T Axes : 070 -31 087 degrees QTc Int : 471 ms Sinus tachycardia Left axis deviation Abnormal ECG When compared with ECG of 02-NOV-2019 18:27, Nonspecific T wave abnormality now evident in Lateral leads Confirmed by BREA WILKERSON, KELLEN ([id number]), school photograph editor CALOS FARIAS ([id number]) on 02/20/2022 11:21:46 AM Referred By: SOL Confirmed By:KELLEN GUIDRY MD
[2022-02-18 22:25] LABS: Bedside Glucose 196 mg/dL (74-106)
[2022-02-19] VITALS (13 sets, daily range): BP systolic 82–126; BP diastolic 69–97; PULSE 83–107; RESP 14–24; TEMP 36.2–37.3; O2SAT 96–100; BMI 16.9
[2022-02-19] MEDS: Insulin Lispro 100 UNIT/ML INSULN.PEN SC (06:26)
[2022-02-19 06:35] LABS: Absolute Lymphocyte Count 1.15 X10^3/uL (0.83-4.51); Absolute Neutrophil Count 17.4 X10^3/uL (2.0-7.7); Basophil# 0.03 X10^3/uL; Basophil% 0.2 % (0-1); Hematocrit 27.5 % (40-54); Lymphocyte # 1.15 X10^3/ul (0.83-4.51); Lymphocyte % 5.9 % (19-41); Mean Corp Hgb Conc 32.7 g/dL (32-36); Mean Corpuscular Hgb 27.7 pg (27.0-32.0); Mean Corpuscular Volume 84.6 fL (80-94); Mean Platelet Vol. 8.8 fl (6.2-12.0); Monocyte# 0.79 X10^3/uL; NRBC Flagged by Analyzer 0 % (0-5); Neutrophil % 88.7 % (47-70); Platelet Count 183 K/mm3 (150-450); RBC Distribution Width CV 15.6 % (11.6-14.6); RBC Distribution Width SD 47.9 fl (35.1-43.9); Red Blood Count 3.25 M/mm3 (4.6-6.2); White Blood Count 19.6 K/mm3 (4.4-11.0)
[2022-02-19 06:55] LABS: Bedside Glucose 179 mg/dL (74-106)
[2022-02-19 06:55] LABS: International Normalized Ratio 1.5; Prothrombin Time (Protime)PT. 17.4 SECONDS (11.7-14.9)
[2022-02-19 06:56] LABS: Partial Thromboplast Time 41.3 Seconds (24.1-36.2)
[2022-02-19 07:01] LABS: Anion Gap 5 (5-15); BUN 12 mg/dL (7-18); BUN/Creat Ratio 16.4 RATIO (10-20); Calcium,Total 8.3 mg/dL (8.5-10.1); Chloride 113 mmol/L (98-107); Creatinine, Serum 0.73 mg/dL (0.70-1.30); EST Glomerular Filtration Rate 110 mL/min (>60); Est Glom Filt Rate - Afr Amer 134 mL/min (>60); Estimated Creatinine Clearance 42.88 ml/min; Glucose 184 mg/dL (74-106); Sodium Level 140 mmol/L (136-145)
--- NOTE | 2022-02-19 07:22 | PN.HOSP_ITS ---
Subjective Subjective Scheduled to undergo endoscopic evaluation (EGD and colonoscopy) as well as PEG tube placement Objective Data Objective Data Vital Signs: Vital Signs Temp Pulse Resp BP Pulse Ox O2 Del Method O2 Flow Rate 99.2 F H 107 H 18 123/79 H 100 Room Air 0 02/19/22 02:00 02/19/22 02:00 02/19/22 02:00 02/19/22 02:00 02/19/22 02:00 02/19/22 02:00 02/17/22 00:00 Oxygen Flow Rate (L/min) 0 Oxygen Delivery Method Room Air Weight: 49 kg Body Mass Index (BMI) 16.9 Intake & Output: Intake and Output for Last 24 Hours 02/17/22 02/18/22 02/19/22 23:59 23:59 23:59 Intake Total 1595.66 / 1595.66 1113.75 / 1113.75 961.16 / 961.16 Output Total 965 / 1015 380 / 530 300 / 300 Balance 630.66 / 580.66 733.75 / 583.75 661.16 / 661.16 Medical Nutrition Assessment Dietitian: Malnutrition Criteria Met Start: 02/17/22 09:56 Freq: Status: Active Protocol: Document 02/18/22 09:37 AG (Rec: 02/18/22 09:38 [id number]) Nutrition Malnutrition Evidence of Malnutrition Exists Yes Malnutrition (severe): Chronic Evidenced By Suboptimal Energy Intake ( Severe),Weight Loss (Severe), Physical Changes (Severe) Clinical Problem Chronic Disease or Condition Related Malnutrition Etiology severe, chronic malnutrition related to inadequate energy intake Signs/Symptoms as evidenced by estimated PO intake meeting <75% of estimated energy needs >3 months; unintentional wt loss of 12.9kg/20% x 3-4 months; Severe fat loss/muscle wasting in orbital, temporal, clavicle, acromion areas per physical exam; BMI 17.0 Status Active Problem Recommendation Dietitian Recommendations/Changes Recommend advance diet as tolerated to regular; ensure plus high protein 120mL 4x/day given severe malnutrition. Recommend close monitoring of electrolytes as diet advanced given risk for refeeding syndrome. Lab / Micro Data Result Diagrams: 02/19/22 06:20 02/19/22 06:20 Labs: Laboratory Results - last 24 hr 02/18/22 08:17: POC Glucose 109 H 02/18/22 11:18: POC Glucose 106 02/18/22 16:41: POC Glucose 139 H 02/18/22 22:02: POC Glucose 196 H 02/19/22 06:20: WBC 19.6 H, RBC 3.25 L, Hgb 9.0 L, Hct 27.5 L, MCV 84.6, MCH 27.7, MCHC 32.7, RDW Std Deviation 47.9 H, RDW Coeff of Brunilda 15.6 H, Plt Count 183, MPV 8.8, Immature Gran % (Auto) 1.200 H, Neut % (Auto) 88.7 H, Lymph % (Auto) 5.9 L, [place] % (Auto) 4.0, Eos % (Auto) 0.0, Baso % (Auto) 0.2, Absolute Neuts (auto) 17.4 H, Absolute Lymphs (auto) 1.15, Nucleated RBC % 0 02/19/22 06:20: Sodium 140, Potassium 4.0, Chloride 113 H, Carbon Dioxide 22.0, Anion Gap 5, BUN 12, Creatinine 0.73, Estim Creat Clear Calc 42.88, Est GFR (MDRD) Af Amer 134, Est GFR (MDRD) Non-Af 110, BUN/Creatinine Ratio 16.4, Glucose 184 H, Calcium 8.3 L 02/19/22 06:20: PT 17.4 H, INR 1.5, APTT 41.3 H 02/19/22 06:24: POC Glucose 179 H Physical Exam Narrative GENERAL: cooperative HEENT: Atraumatic; EYES; Anicteric, Normal Conjunctiva NECK; supple, normal thyroid, RESPIRATORY: Diminished to auscultation CARDIOVASCULAR: Regular S1 S2, GI: soft, normoactive bowel sounds, : No Renal angle tenderness; EXTREMITIES: No edema, no clubbing, MUSCULOSKELETAL: no muscle wasting NEURO: Awake; no lateralizing signs. SKIN: No Rash PSYCH; Flat affect Assessment & Plan Assessment/Plan (1) Hemorrhagic shock: (2) GI bleed: (3) Acute blood loss anemia: (4) Adult failure to thrive: (5) CVA (cerebral vascular accident): (6) Severe protein-calorie malnutrition: (7) Gastroparesis: PLAN: Plan Patient is a 76-year-old gentleman admitted with bleeding per rectum. Patient was started on Protonix drip admitted to the intensive care unit with consultation placed to GI 1. Hemorrhagic shock secondary to gastrointestinal bleed ? Of unknown source. Patient has been admitted to the intensive care unit and started on Protonix drip monitoring H&H every 6 hours with consultation placed to GI.. Any decision regarding endoscopic evaluation deferred to GI ? 02/19/2022 patient scheduled to undergo endoscopic evaluation by Dr. Kuhn 2. Anemia ? Secondary to acute blood loss anemia from above plan is to transfuse if patient becomes symptomatic or hemoglobin falls below 7 3. History of previous CVA ? Patient is on antiplatelet therapy held in view of above 4. Diabetes mellitus type 2 ? Managed with diet please on Accu-Cheks before meals and at bedtime 5. Dyslipidemia ? Patient is on atorvastatin 6. BPH ? Patient is on tamsulosin this was held in view of relatively low blood pressure 7. DVT prophylaxis ? Bilateral SCDs 8. Severe protein calorie malnutrition ? Evidenced by significant weight loss decreased oral intake. Patient is scheduled to undergo active placement Charges/Coding Visit Charges Inpatient E&M: 67971 Subs Hosp L2
--- NOTE | 2022-02-19 08:40 | PCM.PROGNOTE ---
Subjective Subjective No events overnight. Patient remains mildly tacky. He has been afebrile. He is not talking much. He is still vomiting when he attempts to drink or eat any foods. Objective Data Objective Data Vital Signs: Vital Signs Temp Pulse Resp BP Pulse Ox O2 Del Method O2 Flow Rate 98.2 F 94 24 H 122/74 H 99 Room Air 0 02/19/22 08:03 02/19/22 08:03 02/19/22 08:03 02/19/22 08:03 02/19/22 08:03 02/19/22 08:13 02/17/22 00:00 Oxygen Flow Rate (L/min) 0 Oxygen Delivery Method Room Air Weight: 108 lb 0.424 oz Body Mass Index (BMI) 16.9 Intake & Output: Intake and Output for Last 24 Hours 02/17/22 02/18/22 02/19/22 23:59 23:59 23:59 Intake Total 1595.66 / 1595.66 1113.75 / 1113.75 961.16 / 961.16 Output Total 965 / 1015 380 / 530 300 / 300 Balance 630.66 / 580.66 733.75 / 583.75 661.16 / 661.16 Medical Nutrition Assessment Dietitian: Malnutrition Criteria Met Start: 02/17/22 09:56 Freq: Status: Active Protocol: Document 02/18/22 09:37 AG (Rec: 02/18/22 09:38 [id number]) Nutrition Malnutrition Evidence of Malnutrition Exists Yes Malnutrition (severe): Chronic Evidenced By Suboptimal Energy Intake ( Severe),Weight Loss (Severe), Physical Changes (Severe) Clinical Problem Chronic Disease or Condition Related Malnutrition Etiology severe, chronic malnutrition related to inadequate energy intake Signs/Symptoms as evidenced by estimated PO intake meeting <75% of estimated energy needs >3 months; unintentional wt loss of 12.9kg/20% x 3-4 months; Severe fat loss/muscle wasting in orbital, temporal, clavicle, acromion areas per physical exam; BMI 17.0 Status Active Problem Recommendation Dietitian Recommendations/Changes Recommend advance diet as tolerated to regular; ensure plus high protein 120mL 4x/day given severe malnutrition. Recommend close monitoring of electrolytes as diet advanced given risk for refeeding syndrome. Lab / Micro Data Result Diagrams: 02/19/22 06:20 02/19/22 06:20 Labs: Laboratory Results - last 24 hr 02/18/22 08:17: POC Glucose 109 H 02/18/22 11:18: POC Glucose 106 02/18/22 16:41: POC Glucose 139 H 02/18/22 22:02: POC Glucose 196 H 02/19/22 06:20: WBC 19.6 H, RBC 3.25 L, Hgb 9.0 L, Hct 27.5 L, MCV 84.6, MCH 27.7, MCHC 32.7, RDW Std Deviation 47.9 H, RDW Coeff of Brunilda 15.6 H, Plt Count 183, MPV 8.8, Immature Gran % (Auto) 1.200 H, Neut % (Auto) 88.7 H, Lymph % (Auto) 5.9 L, [place] % (Auto) 4.0, Eos % (Auto) 0.0, Baso % (Auto) 0.2, Absolute Neuts (auto) 17.4 H, Absolute Lymphs (auto) 1.15, Nucleated RBC % 0 02/19/22 06:20: Sodium 140, Potassium 4.0, Chloride 113 H, Carbon Dioxide 22.0, Anion Gap 5, BUN 12, Creatinine 0.73, Estim Creat Clear Calc 42.88, Est GFR (MDRD) Af Amer 134, Est GFR (MDRD) Non-Af 110, BUN/Creatinine Ratio 16.4, Glucose 184 H, Calcium 8.3 L 02/19/22 06:20: PT 17.4 H, INR 1.5, APTT 41.3 H 02/19/22 06:24: POC Glucose 179 H Physical Exam Narrative GENERAL: cooperative HEENT: Atraumatic; EYES; Anicteric, Normal Conjunctiva NECK; supple, normal thyroid, RESPIRATORY: Diminished to auscultation CARDIOVASCULAR: Regular S1 S2, GI: soft, normoactive bowel sounds, : No Renal angle tenderness; EXTREMITIES: No edema, no clubbing, MUSCULOSKELETAL: no muscle wasting NEURO: Awake; no lateralizing signs. SKIN: No Rash PSYCH; Flat affect Assessment & Plan Assessment/Plan (1) Nausea and vomiting: PLAN: The plan is still the same to look in his upper GI tract today to evaluate if there is any organic component to his nausea vomiting. Continue PPI as previously ordered.. His white blood cell count that increased to 19,000. Therefore I will order a chest x-ray, UA and blood cultures x2 (2) Gastroparesis: PLAN: I am not sure if he has gastroparesis. He was to have a gastric emptying study was able to tolerate food per mouth. (3) Severe protein-calorie malnutrition: PLAN: Severe protein, nutrition, no positive this time. Work-up still in progress (4) GI bleed: PLAN: If he is able to undergo scopic placement to today then the plan is for colonoscopy tomorrow after bowel cleansing via PEG tube. Charges/Coding Visit Charges Inpatient E&M: 20305 Subs Hosp L2
--- NOTE | 2022-02-19 08:50 | RAD_ITS ---
STUDY: X-RAY CHEST REASON FOR EXAM: Male, 76 years old. leukocytosis TECHNIQUE: Single AP portable view of the chest. COMPARISON: 10/06/2018 FINDINGS: Interval placement of an cervical hall monitor. The lungs are clear and expanded. There is no demonstrated pleural abnormality. Normal size heart. Normal mediastinum and arnold. Normal visualized pulmonary arteries. Normal visualized aortic arch and descending thoracic aorta. Normal visualized thoracic spine. Normal visualized ribs, clavicles, and shoulders. There is no demonstrated abnormality of the visualized soft tissue structures of the upper abdomen. RAD/Chest 1 View (Portable) IMPRESSION: Normal x-ray examination of the chest. Electronically Signed: Braulio Lamb MD at 9:12 EDT ,
[2022-02-19 09:03] LABS: Mucous, Urine 0 SEEN /hpf (<or=2+); Red Blood Cells-Urine 0 SEEN /hpf (0-5); Squamous Epithelial Cells - UA 0 SEEN /hpf (0-5)
[2022-02-19 09:06] LABS: Color, Urine Yellow (Yellow); Glucose, Dipstick Normal (Normal); Ketone-Dipstick Negative (Negative); Leukocyte Esterase-Dipstick 500 /ul (Negative); Nitrite-Dipstick Positive (Negative); Occult Blood-Urine 150 /ul (Negative); Protein-Dipstick 15 mg/dl (Negative); Specific Gravity, Urine 1.015 (1.002-1.030); Urine Clarity Sl. Cloudy (Clear); Urine Urobilinogen 8 mg/dl (Normal)
[2022-02-19 09:11] LABS: Urine Bilirubin Dipstick 1 mg/dL (Negative)
[2022-02-19 09:13] LABS: Bacteria 3+ /hpf (None Seen); White Blood Cells 25-50 SEEN /hpf (0-5)
[2022-02-19] MEDS: Ceftriaxone 1 GM/50 ML BAG IV (10:42)
--- NOTE | 2022-02-19 10:43 | PN.CC_ITS ---
Assessment & Plan Assessment/Plan (1) Acute blood loss anemia: PLAN: Plan RECOMMENDATIONS: 1. Continue to monitor H&H and transfuse if hemoglobin drops below 7 g/dL. 2. Continue PPI therapy. 3. Endoscopic evaluation need per gastroenterology. 4. Encourage incentive spirometer use and mobilize patient as tolerated. 5. Given the patient's lack of any ICU or pulmonary needs, will sign off. Please call with any additional questions. IMPRESSIONS: 1. Acute blood loss anemia Clinical concern for lower GI bleed. However, the patient remains hemodynamically stable on room air. Recommend continuing to monitor H&H and transfuse if hemoglobin drops below 7 g/dL. Continue PPI therapy. Defer need for endoscopic evaluation to gastroenterology, who is following to assist with medical management. 2. Failure to thrive following CVA Nutrition services and physical therapy to work with the patient. 3. Generalized debility/diabetes mellitus/BPH/hyperlipidemia Complicates care, management, recovery and prognosis. Continue home medications as indicated. This note was generated with uStudio dictation software. It may contain incorrect words, spelling, and punctuation that were not noted in checking the note before signing. Subjective Subjective The patient was seen and examined at the bedside this morning. Events from the last 24 hours have been reviewed. The patient is currently afebrile, hemodynamically stable and maintaining appropriate oxygen saturations on room air. Hemoglobin is stable at 9.0 g/dL. The patient is documented to be overall net +3.1 L for the hospitalization. Objective Data Objective Data The patient's most recent lab work, culture data and imaging studies have all been personally reviewed. Vital Signs: Vital Signs Temp Pulse Resp BP Pulse Ox O2 Del Method O2 Flow Rate 98.2 F 94 24 H 122/74 H 99 Room Air 0 02/19/22 08:03 02/19/22 08:03 02/19/22 08:03 02/19/22 08:03 02/19/22 08:03 02/19/22 08:13 02/17/22 00:00 Oxygen Flow Rate (L/min) 0 Oxygen Delivery Method Room Air Weight: 108 lb 0.424 oz Body Mass Index (BMI) 16.9 Intake & Output: Intake and Output for Last 24 Hours 02/17/22 02/18/22 02/19/22 23:59 23:59 23:59 Intake Total 1595.66 / 1595.66 1113.75 / 1113.75 1061.16 / 1061.16 Output Total 965 / 1015 380 / 530 300 / 300 Balance 630.66 / 580.66 733.75 / 583.75 761.16 / 761.16 Medical Nutrition Assessment Dietitian: Malnutrition Criteria Met Start: 02/17/22 09:56 Freq: Status: Active Protocol: Document 02/18/22 09:37 AG (Rec: 02/18/22 09:38 AG [id number]) Nutrition Malnutrition Evidence of Malnutrition Exists Yes Malnutrition (severe): Chronic Evidenced By Suboptimal Energy Intake ( Severe),Weight Loss (Severe), Physical Changes (Severe) Clinical Problem Chronic Disease or Condition Related Malnutrition Etiology severe, chronic malnutrition related to inadequate energy intake Signs/Symptoms as evidenced by estimated PO intake meeting <75% of estimated energy needs >3 months; unintentional wt loss of 12.9kg/20% x 3-4 months; Severe fat loss/muscle wasting in orbital, temporal, clavicle, acromion areas per physical exam; BMI 17.0 Status Active Problem Recommendation Dietitian Recommendations/Changes Recommend advance diet as tolerated to regular; ensure plus high protein 120mL 4x/day given severe malnutrition. Recommend close monitoring of electrolytes as diet advanced given risk for refeeding syndrome. Lab / Micro Data Attestation: I reviewed the patient's lab results. Result Diagrams: 02/19/22 06:20 02/19/22 06:20 Labs: Laboratory Results - last 24 hr 02/18/22 11:18: POC Glucose 106 02/18/22 16:41: POC Glucose 139 H 02/18/22 22:02: POC Glucose 196 H 02/19/22 06:20: WBC 19.6 H, RBC 3.25 L, Hgb 9.0 L, Hct 27.5 L, MCV 84.6, MCH 27.7, MCHC 32.7, RDW Std Deviation 47.9 H, RDW Coeff of Brunilda 15.6 H, Plt Count 183, MPV 8.8, Immature Gran % (Auto) 1.200 H, Neut % (Auto) 88.7 H, Lymph % (Auto) 5.9 L, [place] % (Auto) 4.0, Eos % (Auto) 0.0, Baso % (Auto) 0.2, Absolute Neuts (auto) 17.4 H, Absolute Lymphs (auto) 1.15, Nucleated RBC % 0 02/19/22 06:20: Sodium 140, Potassium 4.0, Chloride 113 H, Carbon Dioxide 22.0, Anion Gap 5, BUN 12, Creatinine 0.73, Estim Creat Clear Calc 42.88, Est GFR (MDRD) Af Amer 134, Est GFR (MDRD) Non-Af 110, BUN/Creatinine Ratio 16.4, Gl ucose 184 H, Calcium 8.3 L 02/19/22 06:20: PT 17.4 H, INR 1.5, APTT 41.3 H 02/19/22 06:24: POC Glucose 179 H 02/19/22 08:50: Urine Color Yellow, Urine Clarity Sl. Cloudy, Urine pH 6.0, Ur Specific [place] 1.015, Urine Protein 15 H, Urine Glucose (UA) Normal, Urine Ketones Negative, Urine Occult Blood 150 H, Urine Nitrite Positive H, Urine Bilirubin 1 H, Urine Urobilinogen 8 H, Ur Leukocyte Esterase 500 H, Urine RBC 0 SEEN, Urine WBC 25-50 SEEN, Ur Squamous Epith Cells 0 SEEN, Urine Bacteria 3+, Urine Mucus 0 SEEN Radiography Diagnostic Testing: Radiology Impression Chest X-Ray 02/19/22 08:50 IMPRESSION: Normal x-ray examination of the chest. Electronically Signed: Braulio Lamb MD at 9:12 EDT Reading Location ID and State: [address] [place] [address] Tel , Service support , Physical Exam Const alert and no apparent distress General Appearance: cooperative and frail HEENT normocephalic, head/scalp atraumatic and moist oral mucous membranes Eyes PERRL, EOMs intact bilaterally and conjunctivae normal Neck supple General: trachea midline Chest inspection of chest normal Resp normal respiratory effort Auscultation: Negative for rales, rhonchi or wheezes Cardio regular rate and regular rhythm GI normal to inspection, nondistended, normoactive bowel sounds Extremity no clubbing, cyanosis or edema Skin no rashes or lesions noted Neuro CN's II-XII intact bilaterally and no focal motor deficits Psych Mood & Affect: flat affect Charges/Coding Visit Charges Inpatient E&M: 37319 Subs Hosp L2
[2022-02-19 11:11] LABS: Bedside Glucose 165 mg/dL (74-106)
--- NOTE | 2022-02-19 11:48 | CASEMGMT ---
Addendum entered by Amaris Vivar 02/19/22 15:39: KADE BANKS back into pt room, pt son chooses 1. [facility] 2.[facility] 3. [facility]. Son states pt has had [facility] in the past. Referral sent via careport at this time. Addendum entered by Amaris Vivar 02/19/22 14:57: KADE BANKS back into pt room, pt out of room and no family present. KADE BANKS to check back for HHC choices. Original Note: KADE BANKS Assessment: Face to Face with pt for initial transition planning/care coordination assessment. KADE BANKS introduced self and role at [facility], pt son voices understanding and consents to assessment. Pt is lying in bed with eyes closed. Son asked for assessment to be completed with him as pt does not speak well. Care providers, pharmacy, and demographics verified/updated. Admitting Dx: GIB, hemorrhagic shock PCP:Kristina Specialists:GI at [facility], son cannot remember the name. Preferred Pharmacy: [facility] Insurance: [facility] Prescription Benefit: yes LW/HPOA: Pt son denies having a LW/DPOA and denies need for info regarding AD. LNOK: Enoc Henning, son; Bria Jacobson, dtr Living Arrangements: Pt lives with son, daughter in law and two grandsons in a two story house with a ramp to enter. Pt has an in law suite on the main floor. Pt has time study analyst cg that is paid privately for 9-10 hours/day 7 days a week. Cg assist patient with all ADL's and IADL's. Son states pt could not walk prior to hospitalization and used w/c. Pt lives in [place] in the [place] and in [place] in the [place]. Transportation: Pt children transport him to medical appts. DME/HHC/SNF: Pt has a shower chair, FWW, w/c, scanning BGM with sufficient supplies as well as insulin with sufficient supplies. Son states pt has not needed insulin as of late d/t not eating and low blood sugars. Pt has had HHC in [place], no hx of SNF stays. Pt was in [facility] Rehab unit per son. Pt son states no concerns with going home at time of dc. They do not want pt to go to SNF. They plan to continue with the private cg. Discussed HHC and family in room agreeable to this. Patient family was provided a list of HHC providers including quality and resource use data and consistent with the patient?s preferred geographic region, medical needs, and insurance network. Family to discuss HHC and RN CM to check back. Pt son states no further concerns/needs. CM to follow. Advised pt son to ask CM if any further question/concerns/needs arise, voices understanding. Pt Son Goal: Home with private duty cg and HHC Plan: Home with private duty cg and HHC
--- NOTE | 2022-02-19 13:30 | CASEMGMT ---
Social Work Per Amaris GABRIEL's assessment note, pt son denies having a LW/DPOA and denies need for info regarding AD. Lorenza Strickland, [place]
--- NOTE | 2022-02-19 14:00 | EGD_PTH ---
PATIENT: KIMBERLEE DEAN LOC: MS3 U#:[id number] AGE/SX: 76/M ROOM: [facility] [place] RE02/16/[address]: Dr. Meet Barnes MD : 1945 BED: 1 DIS: 02/22/2022 SPEC #: [id number] RECD: 02/19/22 15:08 STATUS: SARA RICK #: [id number] ADRIANA: 02/19/22 14:[address]: Jack Kuhn DEPT: SURGICAL PATHOLOGY RECD BY: Fernando Sim ENTERED: 02/20/22 08:30 SP TYPE: EGD BIOPSY OTHR DR: MD Dr. Babatunde Ortega, DO MD Dr. Trell Morel, DO Dr. Jack Kuhn, DO MD Jennie Soliz, SPINNING MACHINE OPERATOR-C Diamond Acevedo MD Tissues: Esophagus, NOS Procedures: Surgery Specimen Level IV Comments: @ Ordering doctor for SUIV edited from to @ by SIMON at 02/20/22 1337 @ Submitting doctor edited from to @ garcia MONTES at 02/20/22 1334 HEADER OPERATION: EGD (MAC), PEG tube placement PRE-OP DIAGNOSIS: Nausea, vomiting, gastroparesis, severe protein-calorie malnutrition, GI bleed TISSUE SUBMITTED: Distal esophagus biopsy MICROSCOPIC DIAGNOSIS Distal esophagus, biopsy: Fragments of benign squamous mucosa. See comment. ALLY:sonia 02/21/2022 COMMENT Please also make reference to additional specimen [id number]. MICROSCOPIC DESCRIPTION Slides are reviewed. GROSS DESCRIPTION Received in fixative is one container labeled with the patient's name and designated distal esophagus biopsy. The specimen consists of multiple irregular fragments of light wilkins soft tissue that in aggregate measure 0.8 x 0.6 x 0.1 cm. The specimen is totally submitted in one cassette. / ALLY:sonia 02/20/2022 TC:5 CPT: 10662
[2022-02-19] MEDS: levoFLOXacin IV 500 MG/100 ML BAG 100 MG IV (14:25)
[2022-02-19] MEDS: Silver Nitrate (BKC) 1 EACH (14:47)
--- NOTE | 2022-02-19 15:00 | OP.EGD_ITS ---
Patient Name: Dakota Henning Procedure Date: 02/19/2022 2:18 PM Date of : 1945 Age: 76 Procedure: Upper GI endoscopy Indications: Epigastric abdominal pain, Functional Dyspepsia, Heartburn Providers: Jack Kuhn DO Medicines: Monitored Anesthesia Care Patient Profile: This is a 76 year old male. Refer to note in patient chart for documentation of history and physical. Patient has symptoms of acute vomiting. Complications: No immediate complications. Procedure: Pre-Anesthesia Assessment: - Prior to the procedure, a History and Physical was performed, and patient medications and allergies were reviewed. The risks and benefits of the procedure and the sedation options and risks were discussed with the patient. All questions were answered and informed consent was obtained. Patient identification and proposed procedure were verified by the physician in the pre-procedure area. Mental Status Examination: alert and oriented. Airway Examination: normal oropharyngeal airway and neck mobility. Respiratory Examination: clear to auscultation. CV Examination: normal. Prophylactic Antibiotics: The patient does not require prophylactic antibiotics. Prior Anticoagulants: The patient has taken no previous anticoagulant or antiplatelet agents. ASA Grade Assessment: II - A patient with mild systemic disease. After reviewing the risks and benefits, the patient was deemed in satisfactory condition to undergo the procedure. The anesthesia plan was to use monitored anesthesia care (MAC). Immediately prior to administration of medications, the patient was re-assessed for adequacy to receive sedatives. The heart rate, respiratory rate, oxygen saturations, blood pressure, adequacy of pulmonary ventilation, and response to care were monitored throughout the procedure. The physical status of the patient was re-assessed after the procedure. After obtaining informed consent, the endoscope was passed under direct vision. Throughout the procedure, the patient's blood pressure, pulse, and oxygen saturations were monitored continuously. The gastroscope was introduced through the mouth, and advanced to the second part of duodenum. The upper GI endoscopy was accomplished without difficulty. The patient tolerated the procedure well. Scope In: 2:31:42 PM Scope Out: 2:49:48 PM Total Procedure Duration Time 0 hours 18 minutes 6 seconds Findings: LA Grade B (one or more mucosal breaks greater than 5 mm, not extending between the tops of two mucosal folds) esophagitis with no bleeding was found 37 to 39 cm from the incisors. Biopsies were taken with a cold forceps for histology. Verification of patient identification for the specimen was done. Estimated blood loss was minimal. A moderate Schatzki ring was found in the lower third of the esophagus. A medium-sized hiatal hernia was present. Diffuse severe inflammation characterized by congestion (edema), erosions and erythema was found in the entire examined stomach. The patient was placed in the supine position for PEG placement. The stomach was insufflated to appose gastric and abdominal brown. A site was located in the body of the stomach with excellent transillumination for placement. The abdominal wall was marked and prepped in a sterile manner. The area was anesthetized with 2 mL of 0.5% lidocaine. The trocar needle was introduced through the abdominal wall and into the stomach under direct endoscopic view. A snare was introduced through the endoscope and opened in the gastric lumen. The guide wire was passed through the trocar and into the open snare. The snare was closed around the guide wire. The endoscope and snare were removed, pulling the wire out through the mouth. A skin incision was made at the site of needle insertion. The externally removable 20 Fr Bard gastrostomy tube was lubricated. The G-tube was tied to the guide wire and pulled through the mouth and into the stomach. The trocar needle was removed, and the gastrostomy tube was pulled out from the stomach through the skin. The external bumper was attached to the gastrostomy tube, and the tube was cut to remove the guide wire. The final position of the gastrostomy tube was confirmed by relook endoscopy, and skin marking noted to be 4 cm at the external bumper. The final tension and compression of the abdominal wall by the PEG tube and external bumper were checked and revealed that the bumper was loose and not touching the skin. The feeding tube was capped, and the tube site cleaned and dressed. Estimated blood loss was minimal. The second portion of the duodenum was normal. Impression: - LA Grade B reflux esophagitis. Biopsied. - Moderate Schatzki ring. - Medium-sized hiatal hernia. - Gastritis. - Normal second portion of the duodenum. - An externally removable PEG placement was successfully completed. Recommendation: - Return patient to hospital cleaning for ongoing care. - Advance diet as tolerated. - Continue present medications. - Await pathology results. Procedure Code(s): --- Professional --- 01286, Esophagogastroduodenoscopy, flexible, transoral; with directed placement of percutaneous gastrostomy tube 66914, Esophagogastroduodenoscopy, flexible, transoral; with biopsy, single or multiple CPT copyright 2017 [employer]. All rights reserved. The codes documented in this report are preliminary and upon safety specialist review may be revised to meet current compliance requirements. Jack Kuhn DO 02/19/2022 3:00:08 PM This report has been signed electronically. Number of Addenda: 0 Note Initiated On: 02/19/2022 2:18 PM
--- NOTE | 2022-02-19 15:01 | OP.CCLET_ITS ---
02/19/2022 Diamond cAevedo Md Re : Upper GI endoscopy procedure for Dakota Henning Alexy Acevedo This procedure was performed on Saturday, February 19, 2022. My impressions and recommendations are as follows: Impressions : - LA Grade B reflux esophagitis. Biopsied. - Moderate Schatzki ring. - Medium-sized hiatal hernia. - Gastritis. - Normal second portion of the duodenum. - An externally removable PEG placement was successfully completed. Recommendations : - Return patient to hospital cleaning for ongoing care. - Advance diet as tolerated. - Continue present medications. - Await pathology results. My findings are described in the full procedure note, which is enclosed. If I can be of further assistance, please feel free to contact me at . Sincerely, Jack Kuhn, 02/19/2022 3:00:08 PM This report has been signed electronically.
[2022-02-19 16:40] LABS: Bedside Glucose 138 mg/dL (74-106)
[2022-02-19] MEDS: 0.9% Saline Lock 10 ML Syringe IV ×2 (16:44→18:57)
[2022-02-19] MEDS: Metoclopramide 10 MG/2 ML Vial 5 MG IV (18:55)
[2022-02-19] MEDS: Electrolyte Solution/Peg's 4000 ML GT (18:56)
[2022-02-19 22:25] LABS: Bedside Glucose 223 mg/dL (74-106)
[2022-02-20] VITALS (11 sets, daily range): BP systolic 95–126; BP diastolic 58–88; PULSE 75–93; RESP 14–20; TEMP 36.4–36.9; O2SAT 95–99; BMI 19.4
[2022-02-20] MEDS: Metoclopramide 10 MG/2 ML Vial 5 MG IV ×4 (00:07→23:09)
[2022-02-20] MEDS: 0.9% Saline Lock 10 ML Syringe IV ×6 (00:08→23:09)
[2022-02-20] MEDS: Insulin Lispro 100 UNIT/ML INSULN.PEN SC ×3 (07:17→23:07)
--- NOTE | 2022-02-20 07:23 | PN.HOSP_ITS ---
Subjective Subjective Patient underwent upper endoscopy with externally removable PEG placement on 02/19/[address] Kuhn. Findings included LA Grade B reflux esophagitis.? Biopsied. - Moderate Schatzki ring. - Medium-sized hiatal hernia. - Gastritis. - Normal second portion of the duodenum ?Patient currently being prepped to undergo colonoscopy Objective Data Objective Data Vital Signs: Vital Signs Temp Pulse Resp BP Pulse Ox O2 Del Method O2 Flow Rate 98.5 F 93 14 114/84 H 95 Room Air 0 02/20/22 02:00 02/20/22 02:00 02/20/22 02:00 02/20/22 02:00 02/20/22 02:00 02/20/22 02:00 02/17/22 00:00 Oxygen Flow Rate (L/min) 0 Oxygen Delivery Method Room Air Weight: 56.2 kg Body Mass Index (BMI) 16.9 Intake & Output: Intake and Output for Last 24 Hours 02/18/22 02/19/22 02/20/22 23:59 23:59 23:59 Intake Total 1113.75 / 1113.75 2581.16 / 3381.16 1800 / 1800 Output Total 380 / 530 800 / 800 0 / 0 Balance 733.75 / 583.75 1781.16 / 2581.16 1800 / 1800 Medical Nutrition Assessment Dietitian: Malnutrition Criteria Met Start: 02/17/22 09:56 Freq: Status: Active Protocol: Document 02/18/22 09:37 AG (Rec: 02/18/22 09:38 [id number]) Nutrition Malnutrition Evidence of Malnutrition Exists Yes Malnutrition (severe): Chronic Evidenced By Suboptimal Energy Intake ( Severe),Weight Loss (Severe), Physical Changes (Severe) Clinical Problem Chronic Disease or Condition Related Malnutrition Etiology severe, chronic malnutrition related to inadequate energy intake Signs/Symptoms as evidenced by estimated PO intake meeting <75% of estimated energy needs >3 months; unintentional wt loss of 12.9kg/20% x 3-4 months; Severe fat loss/muscle wasting in orbital, temporal, clavicle, acromion areas per physical exam; BMI 17.0 Status Active Problem Recommendation Dietitian Recommendations/Changes Recommend advance diet as tolerated to regular; ensure plus high protein 120mL 4x/day given severe malnutrition. Recommend close monitoring of electrolytes as diet advanced given risk for refeeding syndrome. Lab / Micro Data Result Diagrams: 02/19/22 06:20 02/19/22 06:20 Labs: Laboratory Results - last 24 hr 02/16/22 16:15: Crossmatch See Detail 02/19/22 08:50: Urine Color Yellow, Urine Clarity Sl. Cloudy, Urine pH 6.0, Ur Specific [place] 1.015, Urine Protein 15 H, Urine Glucose (UA) Normal, Urine Ketones Negative, Urine Occult Blood 150 H, Urine Nitrite Positive H, Urine Bilirubin 1 H, Urine Urobilinogen 8 H, Ur Leukocyte Esterase 500 H, Urine RBC 0 SEEN, Urine WBC 25-50 SEEN, Ur Squamous Epith Cells 0 SEEN, Urine Bacteria 3+, Urine Mucus 0 SEEN 02/19/22 10:51: POC Glucose 165 H 02/19/22 16:16: POC Glucose 138 H 02/19/22 21:59: POC Glucose 223 H Micro: Microbiology 02/19/22 09:35 Blood Culture (Wb) - Right Hand Blood Culture - Preliminary Radiography Diagnostic Testing: Radiology Impression Chest X-Ray 02/19/22 08:50 IMPRESSION: Normal x-ray examination of the chest. Electronically Signed: Braulio Lamb MD at 9:12 EDT , Physical Exam Narrative GENERAL: cooperative HEENT: Atraumatic; EYES; Anicteric, Normal Conjunctiva NECK; supple, normal thyroid, RESPIRATORY: Diminished to auscultation CARDIOVASCULAR: Regular S1 S2, GI: soft, normoactive bowel sounds, : No Renal angle tenderness; EXTREMITIES: No edema, no clubbing, MUSCULOSKELETAL: no muscle wasting NEURO: Awake; no lateralizing signs. SKIN: No Rash PSYCH; Flat affect Assessment & Plan Assessment/Plan (1) Hemorrhagic shock: (2) GI bleed: (3) Acute blood loss anemia: (4) Adult failure to thrive: (5) CVA (cerebral vascular accident): (6) Severe protein-calorie malnutrition: (7) Gastroparesis: PLAN: Plan Patient is a 76-year-old gentleman admitted with bleeding per rectum. Patient was started on Protonix drip admitted to the intensive care unit with consultation placed to GI 1. Hemorrhagic shock secondary to gastrointestinal bleed ? Of unknown source. Patient has been admitted to the intensive care unit and started on Protonix drip monitoring H&H every 6 hours with consultation placed to GI.. Any decision regarding endoscopic evaluation deferred to GI ? 02/19/2022 patient scheduled to undergo endoscopic evaluation by Dr. Kuhn -02/20/2022; Patient underwent upper endoscopy with externally removable PEG placement on 02/19/[address] Kuhn. Findings included LA Grade B reflux esophagitis.? Biopsied. - Moderate Schatzki ring. - Medium-sized hiatal hernia. - Gastritis. - Normal second portion of the duodenum -?Patient currently being prepped to undergo colonoscopy 2. Anemia ? Secondary to acute blood loss anemia from above plan is to transfuse if patient becomes symptomatic or hemoglobin falls below 7 3. History of previous CVA ? Patient is on antiplatelet therapy held in view of above 4. Diabetes mellitus type 2 ? Managed with diet please on Accu-Cheks before meals and at bedtime 5. Dyslipidemia ? Patient is on atorvastatin 6. BPH ? Patient is on tamsulosin this was held in view of relatively low blood pressure 7. DVT prophylaxis ? Bilateral SCDs 8. Severe protein calorie malnutrition ? Evidenced by significant weight loss decreased oral intake. Patient is scheduled to undergo active placement 9. Physical deconditioning - Requested for PT OT eval and outreach and education social worker to assist with discharge planning Charges/Coding Visit Charges Inpatient E&M: 77093 Subs Hosp L2
[2022-02-20 07:45] LABS: Bedside Glucose 156 mg/dL (74-106)
[2022-02-20] MEDS: Ceftriaxone 1 GM/50 ML BAG IV (09:26)
--- NOTE | 2022-02-20 10:19 | CASEMGMT ---
Received acceptance from [facility] for SOC on Friday. Pt family aware.
[2022-02-20 11:11] LABS: Bedside Glucose 128 mg/dL (74-106)
--- NOTE | 2022-02-20 12:15 | COLBX_PTH ---
PATIENT: KIMBERLEE DEAN LOC: MS3 U#:[id number] AGE/SX: 76/M ROOM: [facility] [place] RE02/16/[address]: Dr. Meet Barnes MD : 1945 BED: 1 DIS: 02/22/2022 SPEC #: [id number] RECD: 02/20/22 13:22 STATUS: SARA RICK #: [id number] ADRIANA: 02/20/22 12:[address]: Jack Kuhn DEPT: SURGICAL PATHOLOGY RECD BY: Fernando Sim ENTERED: 02/20/22 13:33 SP TYPE: COLON BX OTHR DR: MD Dr. Babatunde Ortega, MD Dr. Trell Uriarte Dr., MD Jennie Peters Dr., MORTGAGE LOAN CLOSER-C Diamond Acevedo MD Tissues: A - Descending colon B - Cecum, NOS C - Rectum, NOS Procedures: Surgery Specimen Level IV HEADER OPERATION: Colonoscopy (MAC) PRE-OP DIAGNOSIS: Lower GI bleed TISSUE SUBMITTED: A ? Biopsy of descending colon polyp, B ? Biopsy of cecum, C ? Anorectal junction biopsy MICROSCOPIC DIAGNOSIS A. Descending colon polyp, biopsy: Fragments of colonic mucosa, no pathologic diagnosis. B. Cecum, biopsy: Fragments of colonic mucosa, no pathologic diagnosis. C. Anorectal junction, biopsy: A fragment of squamous mucosa with acute inflammation. See comment. SJ:sonia 02/21/2022 COMMENT Correlation with clinical, endoscopic findings and appropriate follow up are necessary. Please also make reference to additional specimen [id number]. MICROSCOPIC DESCRIPTION Slides are reviewed. GROSS DESCRIPTION A - Received in fixative is one container labeled with the patient's name and designated biopsy of descending colon polyp. The specimen consists of two irregular fragments of light wilkins soft tissue that in aggregate measure 0.4 x 0.2 x 0.1 cm. The specimen is totally submitted in one cassette. B - Received in fixative is one container labeled with the patient's name and designated biopsy of cecum. The specimen consists of two irregular fragments of light wilkins soft tissue that in aggregate measure 0.6 x 0.3 x 0.1 cm. The specimen is totally submitted in one cassette. C - Received in fixative is one container labeled with the patient's name and designated anorectal junction biopsy. The specimen consists of one irregular fragment of light wilkins soft tissue that measures 0.3 x 0.3 x 0.1 cm. The specimen is totally submitted in one cassette. / SJ:rg 02/20/2022 TC:2 CPT: 30706 x3
--- NOTE | 2022-02-20 13:12 | OP.COLON_ITS ---
Patient Name: Dakota Henning Procedure Date: 02/20/2022 12:28 PM Date of : 1945 Age: 76 Procedure: Colonoscopy Indications: Hematochezia Providers: Jack Kuhn DO Medicines: Monitored Anesthesia Care Patient Profile: Last Colonoscopy: date unknown. Unable to locate last colonoscopy report. Complications: No immediate complications. Procedure: Pre-Anesthesia Assessment: - Prior to the procedure, a History and Physical was performed, and patient medications and allergies were reviewed. The risks and benefits of the procedure and the sedation options and risks were discussed with the patient. All questions were answered and informed consent was obtained. Patient identification and proposed procedure were verified by the physician in the pre-procedure area. Mental Status Examination: alert and oriented. Airway Examination: normal oropharyngeal airway and neck mobility. Respiratory Examination: clear to auscultation. CV Examination: normal. Prophylactic Antibiotics: The patient does not require prophylactic antibiotics. Prior Anticoagulants: The patient has taken no previous anticoagulant or antiplatelet agents. After reviewing the risks and benefits, the patient was deemed in satisfactory condition to undergo the procedure. The anesthesia plan was to use monitored anesthesia care (MAC). Immediately prior to administration of medications, the patient was re-assessed for adequacy to receive sedatives. The heart rate, respiratory rate, oxygen saturations, blood pressure, adequacy of pulmonary ventilation, and response to care were monitored throughout the procedure. The physical status of the patient was re-assessed after the procedure. After I obtained informed consent, the scope was passed under direct vision. Throughout the procedure, the patient's blood pressure, pulse, and oxygen saturations were monitored continuously. The pediatric colonoscope was introduced through the anus and advanced to the cecum, identified by appendiceal orifice and ileocecal valve. The quality of the bowel preparation was fair. Scope In: 12:40:13 PM Scope Withdrawal Time 0 hours 13 minutes 1 second Scope Out: 1:04:41 PM Total Procedure Duration Time 0 hours 24 minutes 28 seconds Findings: The perianal and digital rectal examinations were normal. A 5 mm anal fissure was found in the anal canal. Coagulation for hemostasis using heater probe was successful. Estimated blood loss was minimal. Localized moderate inflammation characterized by erosions, erythema and granularity was found in the rectum. Biopsies were taken with a cold forceps for histology. Verification of patient identification for the specimen was done. Estimated blood loss was minimal. A 5 mm polyp was found in the descending colon. The polyp was sessile. The polyp was removed with a cold snare. Resection and retrieval were complete. Verification of patient identification for the specimen was done. Estimated blood loss was minimal. A moderate amount of stool was found in the rectum, in the sigmoid colon, in the descending colon, at the splenic flexure, in the ascending colon and in the cecum, precluding visualization. Localized mild inflammation characterized by congestion (edema) was found in the cecum. Biopsies were taken with a cold forceps for histology. Verification of patient identification for the specimen was done. Estimated blood loss was minimal. Impression: - Anal fissure. - Localized moderate inflammation was found in the rectum secondary to colitis. Biopsied. - One 5 mm polyp in the descending colon, removed with a cold snare. Resected and retrieved. - Stool in the rectum, in the sigmoid colon, in the descending colon, at the splenic flexure, in the ascending colon and in the cecum. Recommendation: - Discharge patient to home. - Resume previous diet. - Continue present medications. - Await pathology results. - Repeat colonoscopy. Procedure Code(s): --- Professional --- 39856, 59, Colonoscopy, flexible; with control of bleeding, any method 38513, Colonoscopy, flexible; with removal of tumor(s), polyp(s), or other lesion(s) by snare technique 44346, 59, Colonoscopy, flexible; with biopsy, single or multiple CPT copyright 2017 [employer]. All rights reserved. The codes documented in this report are preliminary and upon medical billing coder review may be revised to meet current compliance requirements. Jack Kuhn DO 02/20/2022 1:11:45 PM This report has been signed electronically. Number of Addenda: 0 Note Initiated On: 02/20/2022 12:28 PM
--- NOTE | 2022-02-20 13:12 | OP.CCLET_ITS ---
02/20/2022 Diamond Acevedo Md Re : Colonoscopy procedure for Dakota Rogermisty Acevedo This procedure was performed on Sunday, February 20, 2022. My impressions and recommendations are as follows: Impressions : - Anal fissure. - Localized moderate inflammation was found in the rectum secondary to colitis. Biopsied. - One 5 mm polyp in the descending colon, removed with a cold snare. Resected and retrieved. - Stool in the rectum, in the sigmoid colon, in the descending colon, at the splenic flexure, in the ascending colon and in the cecum. Recommendations : - Discharge patient to home. - Resume previous diet. - Continue present medications. - Await pathology results. - Repeat colonoscopy. My findings are described in the full procedure note, which is enclosed. If I can be of further assistance, please feel free to contact me at . Sincerely, Jack Kuhn, DO 02/20/2022 1:11:45 PM This report has been signed electronically.
[2022-02-20] MEDS: Jevity 1.5 1,000 ML 20 ML GT (18:14)
[2022-02-20 18:16] LABS: Bedside Glucose 182 mg/dL (74-106)
[2022-02-20] MEDS: Vancomycin 125 MG/5 ML Susp PO.SYRINGE GT (23:10)
[2022-02-20 23:36] LABS: Bedside Glucose 189 mg/dL (74-106)
[2022-02-21] VITALS (7 sets, daily range): BP systolic 99–125; BP diastolic 58–81; PULSE 73–81; RESP 18–20; TEMP 36.6–36.9; O2SAT 96–100
[2022-02-21] MEDS: Insulin Lispro 100 UNIT/ML INSULN.PEN SC ×3 (06:10→18:11)
[2022-02-21] MEDS: Metoclopramide 10 MG/2 ML Vial 5 MG IV ×3 (06:12→18:10)
[2022-02-21] MEDS: Vancomycin 125 MG/5 ML Susp PO.SYRINGE GT ×3 (06:12→18:16)
[2022-02-21] MEDS: 0.9% Saline Lock 10 ML Syringe IV ×3 (06:12→18:12)
[2022-02-21 06:42] LABS: Bedside Glucose 221 mg/dL (74-106)
--- NOTE | 2022-02-21 07:19 | PN.HOSP_ITS ---
Subjective Subjective Patient seen underwent colonoscopy today prior findings included Anal fissure, Localized moderate inflammation was found in the rectum secondary to colitis.One 5 mm polyp in the descending colon, removed with a cold snare.? Resected ?and retrieved. Patient scheduled to undergo swallow eval this AM. Had a discussion with family Objective Data Objective Data Vital Signs: Vital Signs Temp Pulse Resp BP Pulse Ox O2 Del Method O2 Flow Rate 98 F 79 18 99/58 L 98 Room Air 0 02/21/22 02:57 02/21/22 02:57 02/21/22 02:57 02/21/22 02:57 02/21/22 02:57 02/21/22 03:00 02/17/22 00:00 Oxygen Flow Rate (L/min) 0 Oxygen Delivery Method Room Air Weight: 58.5 kg Body Mass Index (BMI) 19.4 Intake & Output: Intake and Output for Last 24 Hours 02/19/22 02/20/22 02/21/22 23:59 23:59 23:59 Intake Total 2611.16 / 3411.16 5685.00 / 5685.00 1670.59 / 1670.59 Output Total 800 / 800 1500 / 1500 250 / 250 Balance 1811.16 / 2611.16 4185.00 / 4185.00 1420.59 / 1420.59 Medical Nutrition Assessment Dietitian: Malnutrition Criteria Met Start: 02/17/22 09:56 Freq: Status: Active Protocol: Document 02/20/22 15:48 LO (Rec: 02/20/22 15:48 LO [id number]) Nutrition Malnutrition Evidence of Malnutrition Exists Yes Malnutrition (severe): Chronic Evidenced By Suboptimal Energy Intake ( Severe),Weight Loss (Severe), Physical Changes (Severe) Clinical Problem Chronic Disease or Condition Related Malnutrition Etiology severe, chronic malnutrition related to inadequate energy intake Signs/Symptoms as evidenced by estimated PO intake meeting <75% of estimated energy needs >3 months; unintentional wt loss of 12.9kg/20% x 3-4 months; Severe fat loss/muscle wasting in orbital, temporal, clavicle, acromion areas per physical exam; BMI 17.0 Status Active Problem Recommendation Dietitian Recommendations/Changes Recommend advance diet as tolerated to regular; ensure plus high protein 120mL 4x/day given severe malnutrition. Recommend Jevity 1.5 renetta at 45mL/hr goal rate to meet estimated energy needs. Recommend close monitoring of electrolytes as diet advanced given risk for refeeding syndrome. Lab / Micro Data Result Diagrams: 02/19/22 06:20 02/19/22 06:20 Labs: Laboratory Results - last 24 hr 02/20/22 07:15: POC Glucose 156 H 02/20/22 10:38: POC Glucose 128 H 02/20/22 17:06: POC Glucose 182 H 02/20/22 23:05: POC Glucose 189 H 02/21/22 06:09: POC Glucose 221 H Micro: Microbiology 02/20/22 Unknown Stool Enteric Bacteriology - Final 02/20/22 Unknown Stool C. difficile GDH Antigen & Toxins - Final 02/20/22 Unknown Stool C. difficile DNA Amplification - Final 02/19/22 09:35 Blood Culture (Wb) - Right Hand Blood Culture - Preliminary GNR non nougat cutter machine Physical Exam Narrative GENERAL: cooperative HEENT: Atraumatic; EYES; Anicteric, Normal Conjunctiva NECK; supple, normal thyroid, RESPIRATORY: Diminished to auscultation CARDIOVASCULAR: Regular S1 S2, GI: soft, normoactive bowel sounds, : No Renal angle tenderness; EXTREMITIES: No edema, no clubbing, MUSCULOSKELETAL: no muscle wasting NEURO: Awake; no lateralizing signs. SKIN: No Rash PSYCH; Flat affect Assessment & Plan Assessment/Plan (1) Hemorrhagic shock: (2) GI bleed: (3) Acute blood loss anemia: (4) Adult failure to thrive: (5) CVA (cerebral vascular accident): (6) Severe protein-calorie malnutrition: (7) Gastroparesis: PLAN: Plan Patient is a 76-year-old gentleman admitted with bleeding per rectum. Patient was started on Protonix drip admitted to the intensive care unit with consultation placed to GI 1. Hemorrhagic shock secondary to gastrointestinal bleed ? Of unknown source. Patient has been admitted to the intensive care unit and started on Protonix drip monitoring H&H every 6 hours with consultation placed to GI.. Any decision regarding endoscopic evaluation deferred to GI ? 02/19/2022 patient scheduled to undergo endoscopic evaluation by Dr. Kuhn -02/20/2022; Patient underwent upper endoscopy with externally removable PEG placement on 02/19/[address] Kuhn. Findings included LA Grade B reflux esop hagitis.? Biopsied. - Moderate Schatzki ring. - Medium-sized hiatal hernia. - Gastritis. - Normal second portion of the duodenum -?Patient currently being prepped to undergo colonoscopy ?02/21/2022 patient underwent colonoscopy today prior findings included Anal fissure, Localized moderate inflammation was found in the rectum secondary to colitis.One 5 mm polyp in the descending colon, removed with a cold snare.? Resected ?and retrieved.Patient scheduled to undergo swallow eval this AM. Had a discussion with family 2. Gastroparesis ? Status post removable PEG placement on 02/19/[address] Kuhn 3. Anemia ? Secondary to acute blood loss anemia from above plan is to transfuse if patient becomes symptomatic or hemoglobin falls below 7 4. History of previous CVA ? Patient is on antiplatelet therapy held in view of above 5. Diabetes mellitus type 2 ? Managed with diet placed on Accu-Cheks before meals and at bedtime 6. Dyslipidemia ? Patient is on atorvastatin 7. BPH ? Patient is on tamsulosin this was held in view of relatively low blood pressure 8. Severe protein calorie malnutrition ? Evidenced by significant weight loss decreased oral intake. Patient is emma eduled to undergo active placement 9. Physical deconditioning - Requested for PT OT eval and clinical social work therapist to assist with discharge planning 10. DVT prophylaxis ? Bilateral SCDs Charges/Coding Visit Charges Inpatient E&M: 31398 Subs Hosp L2
--- NOTE | 2022-02-21 10:30 | ST.MBS ---
Modified Barium Swallow - Patient Information Study Date: 02/21/22 Study Time: 09:00 Direct Billable Minutes: 90 Total Minutes procedure & reportin Diagnosis: Severe protein calorie malnutrition (E43), Hx of CVA (I63.9) Referring Physician: Meet Barnes Reason for Referral: Objectively assess swallow function, risk for aspiration, and determine recommendations for least restrictive diet textures and compensatory strategies to improve safety of swallow. Medical History: Dakota Henning is a 76-year-old male M who presented to [facility] ED 02/16/2022 with bright blood per rectum. Pt was listless upon arrival and family provided history. PMH includes hx of CVA, DM type II, HTN, HLD, anxiety, and depression (SEE EMR for full H&P). He was admitted for management of hemorrhagic shock, GI bleed, acute blood loss anemia, and adult failure to thrive amongst other comorbidities. BSE completed 02/18/2022, and the patient was recommended NPO with ice chips sparingly by ST. He had to remain NPO during the next two days for Upper GI w/ PEG placement and colonoscopy. SLATE CUTTER re-evaluated swallow function at bedside on 02/20/2022. He was recommended to remain NPO with ice chips and MBSS planned for today to assess concerns for swallow dysfunction and aspiration risk prior to diet advancement. Current Diet Ordered: Regular textures / Thin liquids Dentition: Edentulous - The patient has dentures, but they were not present for the evaluation. Mental Status: Impaired - Difficulty following some commands during the evaluation - could not initiate a volitional swallow despite max verbal cues Respiratory Status: Oxygenating on Room Air - Penetration-Aspiration Scale Penetration-Aspiration Scale: OBJECTIVE ASSESSMENT OF SWALLOW FUNCTION (QUANTITATIVE ? PER TRIAL): PENETRATION / ASPIRATION SCALE (COSME): 1 = does not enter airway 2 = enters airway/above vocal folds/ejected 3 = enters airway/above vocal folds/not ejected 4 = enters airway/contacts vocal folds/ejected 5 = enters airway/contacts vocal folds/not ejected 6 = enters airway/below vocal folds/ejected 7 = enters airway/below vocal folds/not ejected despite effort 8 = enters airway/below vocal folds/no effort VIDEOFLOROSCOPIC SCALE SCORE (COSME): Grade I = aspiration of material that has penetrated into the laryngeal vestibule, intact cough reflex Grade II = aspiration < 10 % of the bolus, intact cough reflex Grade III = aspiration of < 10 % of the bolus, reduced cough reflex or aspiration of > 10 % of the bolus, intact cough reflex Grade IV = aspiration of > 10 % of the bolus, reduced cough reflex - Penetration-Aspiration Scale Score Thin Liquid via teaspoon Result: 1= does not enter airway Thin Liquid via teaspoon Trial 2 Result: 1= does not enter airway Thin Liquid via small single sip from cup Result: 5= enters airways/contacts vocal folds/not ejected - weak throat clearing after - no contrast appeared in the trachea [place] Thick Liquid via small single sip from cup Result: 2= enter airway/above vocal folds/ejected Honey Thick Liquid via teaspoon Result: 1= does not enter airway - pt unable to self feed sip of HTL and required assistance Pudding via teaspoon Result: 1= does not enter airway 1/4 cookie with barium pudding contrast Comment: The patient was unable to score the cookie as he was unable to chew it without his dentures. Pudding contrast received PAS score of 5. Thin Liquid via single sip from straw Result: 7= enters airways/below vocal folds/not ejected despite effort - post prandial aspiration of residue in the pyriforms Thin Liquid via teaspoon Trial 3 Result: 7= enters airways/below vocal folds/not ejected despite effort [place] Thick Liquid via small single sip from cup Trial 2 Result: 1= does not enter airway [place] Thick Liquid via small single sip from cup Trial 3 Result: 1= does not enter airway - Oral Phase Labial Seal: No Labial Escape Tongue Control During Bolus Hold: Posterior escape of greater than half of bolus Bolus Preparation/Mastication: Minimal chewing/mashing with majority of bolus unchewed Bolus Transport/Lingual Motion: Repetitive/disorganized tongue motion Oral Residue: Minimal to no clearance - Pt spit out cookie bolus as he was unable to effectively masticate - Pharyngeal Phase Initiation of Pharyngeal Swallow: Bolus head in pyriforms Soft Palate Elevation: No bolus between soft palate and pharyngeal wall Laryngeal Elevation: Partial superior movement thyroid cart/partial apprx aryt-epig petiole Anterior Hyoid Excursion: Partial anterior movement Epiglottic Movement: Complete inversion Laryngeal Vestibule Closure at Height of Swallow: Incomplete; narrow column of air/contrast in laryngeal vestibule Pharyngeal Stripping Wave: Present - diminished Pharyngoesophageal Segment Opening: Parital distension and partial duration; parital obstruction of flow - partial duration Tongue Base Retraction: Narrow column of contrast between tongue base & post. pharyngeal wall Pharyngeal Residue: Collection of residue within or on pharyngeal structures - sip by straw - Esophageal Phase Esophageal Clearance: Complete clearance - Treatment Strategies Effects of treatment strategies attemped:: Decreased bolus size = effective. - Diagnosis/Impression Diagnosis: Moderate oropharyngeal phase dysphagia (R13.12) Impression: The oral phase is primarily marked by... -Decreased mastication abilities. Without dentures, he was unable to chew cookie bolus. -Decreased bolus control with frequent premature posterior loss of >1/2 of various contrasts to the pyriforms resulting in suboptimal bolus placement prior to swallow onset. -Repetitive tongue motion for A-P transport. -Collection of oral residue with large sips, which would spill posteriorly to the pharynx after the swallow was completed. The pharyngeal phase is primarily marked by... -Moderately delayed swallow onset -Decreased airway closure during the swallow due to decreased laryngeal elevation and anterior hyoid excursion. -Aspiration of thin liquids via straw and tsp with weak, ineffective cough reflex. Laryngeal penetration of pudding and thin by cup to the vocal folds without full ejection. He is at increased risk to aspirate contrast remaining in the laryngeal vestibule after the swallow. SEE PAS scores above for full details. -Collection of pharyngeal residue with sips by straw. The esophageal phase is primarily marked by... -Small cricopharyngeal bar at the level of C5, which did not impact bolus clearance. - Recommendations Diet: Puree Textures, [place]-thick Liquids Compensatory Strategies: Small Bites, Small Sips, Slow Rate - Sips one at a time, Sitting upright, Remain sitting upright for 30 minutes after PO intake, Assist with verbal cues to use recommended strategies Supervision: Assist as needed, 1:1 Close Supervision - staff supervision Recommend Repeat Modified Barium Swallow: TBD - Would recommend repeat MBSS if deemed appropriate by treating SLATE CUTTER to determine if the patient is appropriate for diet advancement of liquids after 4-6 weeks of oropharyngeal exercise program. Need for Skilled Speech Therapy Services: Yes Comment: Will recommend the patient for home health dysphagia therapy after discharge from acute stay to address moderate deficits in oropharyngeal swallow function. The patient does have some difficulty following commands, but will recommend the patient for oropharyngeal strengthening as able to improve lingual strength/coordination, anterior hyoid excursion, and laryngeal elevation (lingual coordination and resistance exercises, CTAR, Kesha). The patient and patient's family would benefit from thorough education regarding diet recommendations and recommended compensatory strategies. Education Completed: 1. Described result of evaluation., 7. Pt requires further education on strategies & risks. - Status Active ST Patient: Active - Contact Information [facility] Speech [facility]:: Kerry Chou M.A. [facility] Speech-Language Pathologist [facility] [address] [place] [address] [email or web address] [phone] 02/21/22 11:12
[2022-02-21] MEDS: Ceftriaxone 1 GM/50 ML BAG IV (10:37)
--- NOTE | 2022-02-21 11:03 | CASEMGMT ---
Addendum entered by Amaris Vivar 02/21/22 11:45: Completed enteral script with order selector for accuracy. Referral sent to [facility] at this time via [facility]. Faxed script to [facility] as well at this time. Addendum entered by Amaris Vivar 02/21/22 11:22: KADE BANKS in to pt room, pt lying with eyes closed and no family present. TC to pt son, discussed local in network options for obtaining the enteral feedings, he chose [facility]. Original Note: Updated [facility] that pt will not dc today but likely tomorrow, spoke to Kaycee. Also added ST to referral.
--- NOTE | 2022-02-21 11:48 | NURSING ---
spoke with nutrition aide Kenzie; reviewed CDIFF + antigen and Negative toxin, + PCR so clarification obtained: pt does NOT need to be in special contact isolation.
[2022-02-21] MEDS: Cephalexin 500 MG Capsule GT ×2 (13:52→21:41)
[2022-02-21 14:46] LABS: Bedside Glucose 227 mg/dL (74-106)
--- NOTE | 2022-02-21 17:21 | PN_ITS ---
Subjective Subjective Patient underwent swallowing test today and was cleared to eat a modified diet. He is doing better today. He is a little bit more awake today than previously. Objective Data Objective Data Vital Signs: Vital Signs Temp Pulse Resp BP Pulse Ox O2 Del Method O2 Flow Rate 98.1 F 73 18 102/81 H 100 Room Air 0 02/21/22 16:27 02/21/22 16:27 02/21/22 16:27 02/21/22 16:27 02/21/22 16:27 02/21/22 16:27 02/17/22 00:00 Oxygen Flow Rate (L/min) 0 Oxygen Delivery Method Room Air Weight: 128 lb 15.527 oz Body Mass Index (BMI) 19.4 Intake & Output: Intake and Output for Last 24 Hours 02/19/22 02/20/22 02/21/22 23:59 23:59 23:59 Intake Total 2611.16 / 3411.16 5685.00 / 5685.00 3242.59 / 3242.59 Output Total 800 / 800 1500 / 1500 250 / 250 Balance 1811.16 / 2611.16 4185.00 / 4185.00 2992.59 / 2992.59 Medical Nutrition Assessment Dietitian: Malnutrition Criteria Met Start: 02/17/22 09:56 Freq: Status: Active Protocol: Document 02/20/22 15:48 LO (Rec: 02/20/22 15:48 LO [id number]) Nutrition Malnutrition Evidence of Malnutrition Exists Yes Malnutrition (severe): Chronic Evidenced By Suboptimal Energy Intake ( Severe),Weight Loss (Severe), Physical Changes (Severe) Clinical Problem Chronic Disease or Condition Related Malnutrition Etiology severe, chronic malnutrition related to inadequate energy intake Signs/Symptoms as evidenced by estimated PO intake meeting <75% of estimated energy needs >3 months; unintentional wt loss of 12.9kg/20% x 3-4 months; Severe fat loss/muscle wasting in orbital, temporal, clavicle, acromion areas per physical exam; BMI 17.0 Status Active Problem Recommendation Dietitian Recommendations/Changes Recommend advance diet as tolerated to regular; ensure plus high protein 120mL 4x/day given severe malnutrition. Recommend Jevity 1.5 renetta at 45mL/hr goal rate to meet estimated energy needs. Recommend close monitoring of electrolytes as diet advanced given risk for refeeding syndrome. Lab / Micro Data Result Diagrams: 02/19/22 06:20 02/19/22 06:20 Labs: Laboratory Results - last 24 hr 02/20/22 17:06: POC Glucose 182 H 02/20/22 23:05: POC Glucose 189 H 02/21/22 06:09: POC Glucose 221 H 02/21/22 11:51: POC Glucose 227 H Micro: Microbiology 02/19/22 09:35 Blood Culture (Wb) - Right Hand Blood Culture - Preliminary Escherichia coli 02/19/22 09:30 Blood Culture (Wb) - Left Hand Blood Culture - Preliminary No growth in 48 hours. 02/20/22 Unknown Stool Enteric Bacteriology - Final 02/20/22 Unknown Stool C. difficile GDH Antigen & Toxins - Final 02/20/22 Unknown Stool C. difficile DNA Amplification - Final Physical Exam Narrative GENERAL: cooperative HEENT: Atraumatic; EYES; Anicteric, Normal Conjunctiva NECK; supple, normal thyroid, RESPIRATORY: Diminished to auscultation CARDIOVASCULAR: Regular S1 S2, GI: soft, normoactive bowel sounds, : No Renal angle tenderness; EXTREMITIES: No edema, no clubbing, MUSCULOSKELETAL: no muscle wasting NEURO: Awake; no lateralizing signs. SKIN: No Rash PSYCH; Flat affect Assessment & Plan Assessment/Plan (1) Nausea and vomiting: PLAN: Bile gastritis secondary to not eating with underlying diabetes mellitus. He is on PPI therapy, Reglan therapy. He has not had any more episodes of nausea vomiting. He underwent repeat swallowing study test today and they recom mended a modified diet along with ongoing speech and swallowing health. (2) Gastroparesis: PLAN: Gastroparesis secondary to diabetes mellitus and the setting of malnutrition. This is improvement with Reglan therapy oral opiate pain 10 mg every 6 hours. (3) Severe protein-calorie malnutrition: PLAN: Severe protein calorie malnutrition: Ensure high-protein 4-6 times a day for the 120 cc water flushes. Continue to encourage p.o. intake (4) Acute blood loss anemia: PLAN: . acute blood loss anemia thought to be secondary to excoriation of colitis involving the rectum. He also that were seen and treated endoscopically. Biopsies were taken of the rectum which are pending. (5) C. difficile colitis: PLAN: Stool culture. He has been started on vancomycin therapy which we will need to complete a full 14-days Charges/Coding Visit Charges Inpatient E&M: 63387 Subs Hosp L2
[2022-02-21 17:40] LABS: Bedside Glucose 320 mg/dL (74-106)
[2022-02-21] MEDS: Jevity 1.5 1,000 ML 45 ML GT (17:54)
[2022-02-21] MEDS: Ensure Plus High Protein 120 ML LIQUID GT (21:41)
[2022-02-22] MEDS: Insulin Lispro 100 UNIT/ML INSULN.PEN SC ×4 (00:34→17:52)
[2022-02-22] MEDS: Vancomycin 125 MG/5 ML Susp PO.SYRINGE GT ×3 (00:35→12:33)
[2022-02-22] MEDS: Metoclopramide 10 MG/2 ML Vial 5 MG IV ×3 (00:43→12:33)
[2022-02-22] MEDS: 0.9% Saline Lock 10 ML Syringe IV ×4 (00:44→12:35)
[2022-02-22 01:00] LABS: Bedside Glucose 242 mg/dL (74-106)
[2022-02-22 04:06] VITALS: BP 122/73; PULSE 74; RESP 18; TEMP 36.7; O2SAT 99
[2022-02-22] MEDS: Cephalexin 500 MG Capsule GT ×3 (05:48→21:49)
--- NOTE | 2022-02-22 06:07 | NURSING ---
residual from PEG at this time is 250cc. jevity cont feed paused at this time and bolus ensure held. will recheck residual in 1 hour according to policy
[2022-02-22 06:25] LABS: Bedside Glucose 263 mg/dL (74-106)
--- NOTE | 2022-02-22 07:42 | NURSING ---
rechecked residual of pts PEG and it was 200cc at this time. Jevity cont feed restarted at this time at 45cc/hr. Primary dayshift Virgen BRAUN made aware.
--- NOTE | 2022-02-22 07:45 | PCM.PN.HOSP ---
Subjective Subjective Patient was started on Jevity 1.5 at 45 mL/h with boluses of Ensure in between. Plan is for patient to be discharged home once supplies have been delivered. Patient has hyperglycemia attributed to his tube feeding on his underlying diabetes mellitus type 2 Objective Data Objective Data Vital Signs: Vital Signs Temp Pulse Resp BP Pulse Ox O2 Del Method O2 Flow Rate 98.1 F 74 18 122/73 H 99 Room Air 0 02/22/22 04:06 02/22/22 04:06 02/22/22 04:06 02/22/22 04:06 02/22/22 04:06 02/22/22 04:06 02/17/22 00:00 Oxygen Flow Rate (L/min) 0 Oxygen Delivery Method Room Air Weight: 59.8 kg Body Mass Index (BMI) 19.4 Intake & Output: Intake and Output for Last 24 Hours 02/20/22 02/21/22 02/22/22 23:59 23:59 23:59 Intake Total 5685.00 / 5685.00 5484.76 / 5484.76 2182.92 / 2182.92 Output Total 1500 / 1500 2250 / 2250 2175 / 2175 Balance 4185.00 / 4185.00 3234.76 / 3234.76 7.92 / 7.92 Medical Nutrition Assessment Dietitian: Malnutrition Criteria Met Start: 02/17/22 09:56 Freq: Status: Active Protocol: Document 02/20/22 15:48 LO (Rec: 02/20/22 15:48 LO [id number]) Nutrition Malnutrition Evidence of Malnutrition Exists Yes Malnutrition (severe): Chronic Evidenced By Suboptimal Energy Intake ( Severe),Weight Loss (Severe), Physical Changes (Severe) Clinical Problem Chronic Disease or Condition Related Malnutrition Etiology severe, chronic malnutrition related to inadequate energy intake Signs/Symptoms as evidenced by estimated PO intake meeting <75% of estimated energy needs >3 months; unintentional wt loss of 12.9kg/20% x 3-4 months; Severe fat loss/muscle wasting in orbital, temporal, clavicle, acromion areas per physical exam; BMI 17.0 Status Active Problem Recommendation Dietitian Recommendations/Changes Recommend advance diet as tolerated to regular; ensure plus high protein 120mL 4x/day given severe malnutrition. Recommend Jevity 1.5 renetta at 45mL/hr goal rate to meet estimated energy needs. Recommend close monitoring of electrolytes as diet advanced given risk for refeeding syndrome. Lab / Micro Data Result Diagrams: 02/19/22 06:20 02/19/22 06:20 Labs: Laboratory Results - last 24 hr 02/21/22 11:51: POC Glucose 227 H 02/21/22 17:17: POC Glucose 320 H 02/22/22 00:33: POC Glucose 242 H 02/22/22 05:45: POC Glucose 263 H Micro: Microbiology 02/19/22 09:35 Blood Culture (Wb) - Right Hand Blood Culture - Preliminary Escherichia coli 02/19/22 09:30 Blood Culture (Wb) - Left Hand Blood Culture - Preliminary No growth in 48 hours. 02/20/22 Unknown Stool Enteric Bacteriology - Final 02/20/22 Unknown Stool C. difficile GDH Antigen & Toxins - Final 02/20/22 Unknown Stool C. difficile DNA Amplification - Final Physical Exam Narrative GENERAL: cooperative HEENT: Atraumatic; EYES; Anicteric, Normal Conjunctiva NECK; supple, normal thyroid, RESPIRATORY: Diminished to auscultation CARDIOVASCULAR: Regular S1 S2, GI: soft, normoactive bowel sounds, : No Renal angle tenderness; EXTREMITIES: No edema, no clubbing, MUSCULOSKELETAL: no muscle wasting NEURO: Awake; no lateralizing signs. SKIN: No Rash PSYCH; Flat affect Assessment & Plan Assessment/Plan (1) Hemorrhagic shock: (2) GI bleed: (3) Acute blood loss anemia: (4) Adult failure to thrive: (5) CVA (cerebral vascular accident): (6) Severe protein-calorie malnutrition: (7) Gastroparesis: PLAN: Plan Patient is a 76-year-old gentleman admitted with bleeding per rectum. Patient was started on Protonix drip admitted to the intensive care unit with consultation placed to GI 1. Hemorrhagic shock secondary to gastrointestinal bleed ? Of unknown source. Patient has been admitted to the intensive care unit and started on Protonix drip monitoring H&H every 6 hours with consultation placed to GI.. Any decision regarding endoscopic evaluation deferred to GI ? 02/19/2022 patient scheduled to undergo endoscopic evaluation by Dr. Kuhn -02/20/2022; Patient underwent upper endoscopy with externally removable PEG placement on 02/19/[address] Kuhn. Findings included LA Grade B reflux esophagitis.? Biopsied. - Moderate Schatzki ring. - Medium-sized hiatal hernia. - Gastritis. - Normal second portion of the duodenum -?Patient currently being prepped to undergo colonoscopy ?02/21/2022 patient underwent colonoscopy today prior findings included Anal fissure, Localized moderate inflammation was found in the rectum secondary to colitis.One 5 mm polyp in the descending colon, removed with a cold snare.? Resected ?and retrieved.Patient scheduled to undergo swallow eval this AM. Had a discussion with family -02/22/2022; Patient was started on Jevity 1.5 at 45 mL/h with boluses of Ensure in between. Plan is for patient to be discharged home once supplies have been delivered. Patient has hyperglycemia attributed to his tube feeding on his underlying diabetes mellitus type 2 2. Gastroparesis ? Status post removable PEG placement on 02/19/[address] Kuhn 3. Anemia ? Secondary to acute blood loss anemia from above plan is to transfuse if patient becomes symptomatic or hemoglobin falls below 7 4. History of previous CVA ? Patient is on antiplatelet therapy held in view of above 5. Diabetes mellitus type 2 ? Managed with diet placed on Accu-Cheks before meals and at bedtime 6. Dyslipidemia ? Patient is on atorvastatin 7. BPH ? Patient is on tamsulosin this was held in view of relatively low blood pressure 8. Severe protein calorie malnutrition ? Evidenced by significant weight loss decreased oral intake. Patient is scheduled to undergo active placement 9. Physical deconditioning - Requested for PT OT eval and social service assistant to assist with discharge planning 10. DVT prophylaxis ? Bilateral SCDs 11. Acute cystitis with E. coli ? Patient was managed appropriately with Rocephin Charges/Coding Visit Charges Inpatient E&M: 18325 Subs Hosp L2
--- NOTE | 2022-02-22 09:34 | CASEMGMT ---
Addendum entered by Amaris Vivar 02/22/22 16:20: Discussed transport home and son prefers squad. Notified physician office secretary. Addendum entered by Amaris Vivar 02/22/22 16:14: Received tc back from Carla, pt was approved. Verified address for delivery. Pt son aware. Addendum entered by Amaris Vivar 02/22/22 16:10: Pt son updated on status of TF. He is aware that [facility] will be out tomorrow to see them. Green sheet on chart for dc instructions to be faxed to them. Addendum entered by Amaris Vivar 02/22/22 16:04: TC to [facility], spoke with Carla. She states she still has not heard if approved. In 15 min, if not approved, she will give a self pay bui for initial dispense until approved. Addendum entered by Amaris Vivar 02/22/22 14:33: Additional information sent via [employer] at this time for TF. Addendum entered by Amaris Vivar 02/22/22 10:15: TC to Edi at [facility], states the referral is not completely in the system yet although sent through [employer]. States RN CM will receive a call once determined. Original Note: Received message via [employer] from [employer] that they do not carry Jevity 1.5 and can pt be sent home with some. States it would take 2-5 days to be sent to patient. TC to [facility] who states pt are not normally sent home with TF. Referral now sent to [facility].
[2022-02-22] MEDS: Ensure Plus High Protein 120 ML LIQUID GT (10:47)
[2022-02-22 10:50] VITALS: BP 124/88; PULSE 88; RESP 18; TEMP 36.7; O2SAT 100
--- NOTE | 2022-02-22 12:00 | PN_ITS ---
Subjective Subjective Patient is a more awake and alert. He has been tolerating vancomycin and has been tolerating his tube feedings. He has gained approximately 7 pounds over the last week. Objective Data Objective Data Vital Signs: Vital Signs Temp Pulse Resp BP Pulse Ox O2 Del Method O2 Flow Rate 98.0 F 88 18 124/88 H 100 Room Air 0 02/22/22 10:50 02/22/22 10:50 02/22/22 10:50 02/22/22 10:50 02/22/22 10:50 02/22/22 11:33 02/17/22 00:00 Oxygen Flow Rate (L/min) 0 Oxygen Delivery Method Room Air Weight: 131 lb 13.383 oz Body Mass Index (BMI) 19.4 Intake & Output: Intake and Output for Last 24 Hours 02/20/22 02/21/22 02/22/22 23:59 23:59 23:59 Intake Total 5685.00 / 5685.00 5484.76 / 5484.76 4876.67 / 4876.67 Output Total 1500 / 1500 2250 / 2250 2175 / 2175 Balance 4185.00 / 4185.00 3234.76 / 3234.76 2701.67 / 2701.67 Medical Nutrition Assessment Dietitian: Malnutrition Criteria Met Start: 02/17/22 0 9:56 Freq: Status: Active Protocol: Document 02/22/22 15:35 AG (Rec: 02/22/22 15:35 [id number]) Nutrition Malnutrition Evidence of Malnutrition Exists Yes Malnutrition (severe): Chronic Evidenced By Suboptimal Energy Intake ( Severe),Weight Loss (Severe), Physical Changes (Severe) Clinical Problem Chronic Disease or Condition Related Malnutrition Etiology severe, chronic malnutrition related to inadequate energy intake Signs/Symptoms as evidenced by estimated PO intake meeting <75% of estimated energy needs >3 months; unintentional wt loss of 12.9kg/20% x 3-4 months; Severe fat loss/muscle wasting in orbital, temporal, clavicle, acromion areas per physical exam Status Active Problem Recommendation Dietitian Recommendations/Changes Will order via PEG- 237mL Jevity 1.5 at mealtimes, 355mL Jevity 1.5 HS to provide ~ 1600 calories, 68 g protein, 1690mL total fluid/day. As ordered, enteral nutrition support meeting 100% of estimated energy needs. Will d /c Ensure Plus High Protein via PEG- not appropriate. Modified PO diet per [employer]- pleasure feeds, not providing significant nutrition at this time. Lab / Micro Data Result Diagrams: 02/19/22 06:20 02/19/22 06:20 Labs: Laboratory Results - last 24 hr 02/21/22 17:17: POC Glucose 320 H 02/22/22 00:33: POC Glucose 242 H 02/22/22 05:45: POC Glucose 263 H 02/22/22 11:57: POC Glucose 273 H Micro: Microbiology 02/19/22 09:35 Blood Culture (Wb) - Right Hand Blood Culture - Preliminary Escherichia coli 02/19/22 09:30 Blood Culture (Wb) - Left Hand Blood Culture - Preliminary No growth in 48 hours. 02/20/22 Unknown Stool Enteric Bacteriology - Final 02/20/22 Unknown Stool C. difficile GDH Antigen & Toxins - Final 02/20/22 Unknown Stool C. difficile DNA Amplification - Final Physical Exam Narrative GENERAL: cooperative HEENT: Atraumatic; EYES; Anicteric, Normal Conjunctiva NECK; supple, normal thyroid, RESPIRATORY: Diminished to auscultation CARDIOVASCULAR: Regular S1 S2, GI: soft, normoactive bowel sounds, : No Renal angle tenderness; EXTREMITIES: No edema, no clubbing, MUSCULOSKELETAL: no muscle wasting NEURO: Awake; no lateralizing signs. SKIN: No Rash PSYCH; Flat affect Assessment & Plan Assessment/Plan (1) C. difficile colitis: PLAN: Continue vancomycin for 14-day total treatment. He can follow-up as an outpatient for follow-up regarding his C. difficile colitis. (2) Nausea and vomiting: PLAN: He has tube feedings for his severe gastroparesis and frequent nausea vomiting secondary to gastritis. Recommend to add Questran to his formula once a day to treat the bile gastritis. (3) Gastroparesis: PLAN: Recommend to continue Reglan therapy as an outpatient and he is not suffering any side effects from metoclopramide that we can recognize at this time. Risk and benefits of metoclopramide therapy were explained to the family (4) Severe protein-calorie malnutrition: PLAN: . Continue Ensure and Jevity treatment with 120 cc water flushes. (5) Acute blood loss anemia: Charges/Coding Visit Charges Inpatient E&M: 97671 Subs Hosp L3
[2022-02-22 12:20] LABS: Bedside Glucose 273 mg/dL (74-106)
--- NOTE | 2022-02-22 15:42 | PCM.DC.SUM ---
Providers Date of Admission: 02/16/22 Date of Discharge: 02/22/22 Primary Care Physician: Diamond Acevedo MD Consultations 02/16/22 20:00 Consult: Gastroenterology Routine Consulting Provider: [facility] Reason for Consult: GI bleed EMERGENT Consult: No Notified: Yes Date Notified: 02/16/22 Time Notified: 18:53 Method of Notification: Verbal Consult: Accounts Clerk / Pulmonary Medicine Routine Consulting Provider: Pulmonary Medicine myron [place] Reason for Consult: hemorrhagic shock EMERGENT Consult: No Notified: Yes Date Notified: 02/16/22 Time Notified: 18:53 Method of Notification: Text Reason For Visit: GI BLEED, HEMORRHAGIC SHOCK Diagnosis Discharge Diagnosis (1) Hemorrhagic shock: Status: Acute Code(s): R57.8 - Other shock (2) GI bleed: Status: Acute Code(s): K92.2 - Gastrointestinal hemorrhage, unspecified (3) Acute blood loss anemia: Status: Acute Code(s): D62 - Acute posthemorrhagic anemia (4) Adult failure to thrive: Status: Acute Code(s): R62.7 - Adult failure to thrive (5) CVA (cerebral vascular accident): Status: Chronic Code(s): I63.9 - Cerebral infarction, unspecified (6) Severe protein-calorie malnutrition: Status: Acute Code(s): E43 - Unspecified severe protein-calorie malnutrition (7) Gastroparesis: Status: Acute Code(s): K31.84 - Gastroparesis Plan Patient is a 76-year-old gentleman admitted with bleeding per rectum. Patient was started on Protonix drip admitted to the intensive care unit with consultation placed to GI 1. Hemorrhagic shock secondary to gastrointestinal bleed ? Of unknown source. Patient has been admitted to the intensive care unit and started on Protonix drip monitoring H&H every 6 hours with consultation placed to GI.. Any decision regarding endoscopic evaluation deferred to GI ? 02/19/2022 patient scheduled to undergo endoscopic evaluation by Dr. Kuhn -02/20/2022; Patient underwent upper endoscopy with externally removable PEG placement on 02/19/[address] Kuhn. Findings included LA Grade B reflux esophagitis.? Biopsied. - Moderate Schatzki ring. - Medium-sized hiatal hernia. - Gastritis. - Normal second portion of the duodenum -?Patient currently being prepped to undergo colonoscopy ?02/21/2022 patient underwent colonoscopy today prior findings included Anal fissure, Localized moderate inflammation was found in the rectum secondary to colitis.One 5 mm polyp in the descending colon, removed with a cold snare.? Resected ?and retrieved.Patient scheduled to undergo swallow eval this AM. Had a discussion with family -02/22/2022; Patient was started on Jevity 1.5 at 45 mL/h with boluses of Ensure in between. Plan is for patient to be discharged home once supplies have been delivered. Patient has hyperglycemia attributed to his tube feeding on his underlying diabetes mellitus type 2 2. Gastroparesis ? Status post removable PEG placement on 02/19/[address] Kuhn 3. Anemia ? Secondary to acute blood loss anemia from above plan is to transfuse if patient becomes symptomatic or hemoglobin falls below 7 4. History of previous CVA ? Patient is on antiplatelet therapy held in view of above 5. Diabetes mellitus type 2 ? Managed with diet placed on Accu-Cheks before meals and at bedtime 6. Dyslipidemia ? Patient is on atorvastatin 7. BPH ? Patient is on tamsulosin this was held in view of relatively low blood pressure 8. Severe protein calorie malnutrition ? Evidenced by significant weight loss decreased oral intake.? Patient is scheduled to undergo active placement ? 02/22/2022 removable PEG placement on 02/19/[address] Kuhn.? Given patient profound severe protein calorie malnutrition in significantly decreased oral intake I do anticipate patient requiring tube feeding for greater than 90 days 9. Physical deconditioning - Requested for PT OT eval and manager social to assist with discharge planning 10. DVT prophylaxis ? Bilateral SCDs 11. Acute cystitis with E. coli ? Patient was managed appropriately with Rocephin . C. difficile colitis ? Patient was discharged on p.o. vancomycin Medications at Discharge Home Medications aspirin 81 mg tablet,delayed release (Adult Aspirin Regimen) 81 mg PO DAILY@0800 [facility] 02/10/19 atorvastatin 40 mg tablet 40 mg PO QHS Check with primary doctor ##0 11/15/19 tamsulosin 0.4 mg capsule 0.8 mg PO QHS Check with primary doctor 03/21/20 acetaminophen 500 mg tablet 1,000 mg PO Q6H PRN PRN Pain Score 1-03/2503/29/20 menthol 0.44 %-zinc oxide 20.6 % topical ointment 1 applic topical 0600,2200 03/29/20 pantoprazole 40 mg tablet,delayed release 40 mg PO BID Check with primary doctor #60 tabs 03/29/20 metoclopramide HCl 5 mg tablet 5 mg PO BID 02/16/22 cephalexin 500 mg capsule 500 mg G-tube Q8 10 days #30 caps 02/22/22 food supplemt, lactose-reduced 0.08 gram-1.5 kcal/mL oral liquid (Ensure Plus High Protein) 120 ml G-tube Q6 30 days #14,000 mL 02/22/22 ondansetron 4 mg disintegrating tablet 4 mg PO Q6H PRN PRN NAUSEA #120 tabs 02/22/22 vancomycin 25 mg/mL oral solution (Firvanq) 125 mg (5 mL) G-tube Q6 14 days #280 mL 02/22/22 Hospital Course Summary of Care Provided Minutes Spent on Discharge: 45 Physical Exam Narrative GENERAL: cooperative HEENT: Atraumatic; EYES; Anicteric, Normal Conjunctiva NECK; supple, normal thyroid, RESPIRATORY: Diminished to auscultation CARDIOVASCULAR: Regular S1 S2, GI: soft, normoactive bowel sounds, : No Renal angle tenderness; EXTREMITIES: No edema, no clubbing, MUSCULOSKELETAL: no muscle wasting NEURO: Awake; no lateralizing signs. SKIN: No Rash PSYCH; Flat affect Medical Records Data Medical Nutrition Assessment Dietitian: Malnutrition Criteria Met Start: 02/17/22 09:56 Freq: Status: Active Protocol: Document 02/22/22 15:35 (Rec: 02/22/22 15:35 [id number]) Nutrition Malnutrition Evidence of Malnutrition Exists Yes Malnutrition (severe): Chronic Evidenced By Suboptimal Energy Intake ( Severe),Weight Loss (Severe), Physical Changes (Severe) Clinical Problem Chronic Disease or Condition Related Malnutrition Etiology severe, chronic malnutrition related to inadequate energy intake Signs/Symptoms as evidenced by estimated PO intake meeting <75% of estimated energy needs >3 months; unintentional wt loss of 12.9kg/20% x 3-4 months; Severe fat loss/muscle wasting in orbital, temporal, clavicle, acromion areas per physical exam Status Active Problem Recommendation Dietitian Recommendations/Changes Will order via PEG- 237mL Jevity 1.5 at mealtimes, 355mL Jevity 1.5 HS to provide ~ 1600 calories, 68 g protein, 1690mL total fluid/day. As ordered, enteral nutrition support meeting 100% of estimated energy needs. Will d /c Ensure Plus High Protein via PEG- not appropriate. Modified PO diet per [employer]- pleasure feeds, not providing significant nutrition at this time. Weight / BMI Weight Weight: 59.8 kg Body Mass Index (BMI) 19.4 ABG / Lab / Microbiology Data Result Diagrams: 02/19/22 06:20 02/19/22 06:20 Laboratory: Laboratory Results - last 24 hr 02/21/22 17:17: POC Glucose 320 H 02/22/22 00:33: POC Glucose 242 H 02/22/22 05:45: POC Glucose 263 H 02/22/22 11:57: POC Glucose 273 H Microbiology: Microbiology 02/19/22 09:35 Blood Culture (Wb) - Right Hand Blood Culture - Preliminary Escherichia coli 02/19/22 09:30 Blood Culture (Wb) - Left Hand Blood Culture - Preliminary No growth in 48 hours. 02/20/22 Unknown Stool Enteric Bacteriology - Final 02/20/22 Unknown Stool C. difficile GDH Antigen & Toxins - Final 02/20/22 Unknown Stool C. difficile DNA Amplification - Final Meaningful Use Info Meaningful Use Diagnoses (Choose all that apply): None applicable Discharge Plan Admission Admit Date/Time: 02/16/22 18:48 Attending Provider: Meet Barnes Primary Care Provider: Diamond Acevedo Consulting Providers: Trell Painting ; Kalyan Honeycutt ; Babatunde Merida ; Addy Olivarez ; Jennie Chiu FINISH SPECIALIST Instructions Additional Instructions / Restrictions: Home going Enteral Nutrition: Jevity 1.5 Kiel - 4.5 8oz cartons daily (recommend 1 carton at breakfast, lunch, and dinner and 1.5 cartons at bedtime). Flush PEG tube with 110mL of water before and after each feeding. Discharge Orders/Prescriptions Prescriptions: New cephalexin 500 mg Capsule 500 mg G-tube Q8 10 Days Qty: 30 0RF Ensure Plus High Protein 0.08 gram-1.5 kcal/mL Liquid 120 ml G-tube Q6 30 Days Qty: 60271 0RF Firvanq 25 mg/mL Recon Soln 125 mg G-tube Q6 14 Days Qty: 280 0RF Continued aspirin [Adult Aspirin Regimen] 81 mg tablet,delayed release (DR/EC) 81 mg PO DAILY@0800 atorvastatin 40 mg tablet 40 mg PO QHS Qty: 0 0RF tamsulosin 0.4 MG capsule 0.8 mg PO QHS acetaminophen 500 MG tablet 1,000 mg PO Q6H PRN PRN (Reason: Pain Score 1-10/10) 0RF menthol-zinc oxide 1 APPLIC ointment 1 applic TOPICAL 0600,2200 0RF Protocol: *Topical Application Instructions APPLICATION INSTRUCTIONS: bilateral buttocks pantoprazole 40 MG tablet 40 mg PO BID Qty: 60 0RF metoclopramide HCl 5 mg tablet 5 mg PO BID ondansetron 4 MG tablet 4 mg PO Q6H PRN PRN (Reason: NAUSEA) Qty: 120 0RF Discontinued clopidogrel 75 mg tablet 75 mg PO DAILY Referrals / Follow Up: Jack Kuhn DO [Med Staff - Active Staff] - Within 2 Weeks Diamond Acevedo MD [Primary Care Provider] - Within 1 Week Disposition Disposition (needs filled in before D/C Order can be placed): Home Health Service Charges/Coding Visit Charges Inpatient E&M: 81561 Disch Hosp
[2022-02-22 17:45] VITALS: BP 124/78; PULSE 78; RESP 18; TEMP 36.7; O2SAT 99
[2022-02-22 18:16] LABS: Bedside Glucose 346 mg/dL (74-106)
[2022-02-22 21:50] VITALS: BP 149/97; PULSE 71; RESP 16; TEMP 36.6; O2SAT 99
--- NOTE | 2022-02-23 11:21 | CASEMGMT ---
RN DARREN NOTE: Per Lizette, MS3 charge nurse, pt's son called in last PM stating that firvanq liquid requires a prior auth. Request for Prior auth submitted via Cover My Meds and was approved. [place]ard: [id number] Call placed to [facility] and spoke with Sherrie. She ran firvanq through again and it does show it is approved. Per Sherrie, medication will ready for pick-up at 1 PM. They only have 1/2 of rx available today and will have remaining 1/2 on Friday. Total cost due will be $230 and will go toward deductible. Call placed to pt's son, Enoc, and he was notified of all of the above. He voices appreciation and states will be able to pick it up today. This RN CM spoke /[facility] nurse, Oumou, and she was notified of same. Maeve TOBAR RN, CM
--- NOTE | 2022-02-26 10:48 | NS ---
02/26/22 Follow-up phone call after discharge. Spoke w/ son Enoc. Pt did not tolerate HS bolus on Thursday 02/22. Family has observed pt with better GI tolerance if he eats earlier in the day. Over the weekend, they adjusted home enteral schedule to 3 boluses of 1.5 cartons or ~355mL Jevity 1.5 per day at 1100, 1400, and 1830. Enoc says pt did well and tolerated feedings without difficulty. Enoc states they flushed w/ 110mL before and after each feed. Pt has been accepting of thickened water at home but was told by home health RN pt is to be NPO. Enoc says pt has outpatient speech therapy ordered, so they are awaiting visit from [employer] before offering more thickened water. Enoc is hopeful pt will take purees PO when allowed by [employer]. Again discussed gastroparesis, and that pt may not tolerate enteral nutrition and PO nutrition if given at the same time. Enoc expressed understanding. Discussed increasing flushes which change from 4 to 3 feedings/day. Will increase to 120mL flush before and after, with parameters to decrease flushes to less (60mL before and after) if pt consuming significant water PO. Adjusted home enteral nutrition: 355mL Jevity 1.5 via PEG TID (1100, 1400, and 1830 per family preference) w/ 120mL H2O flush before and after to provide ~1600 calories, 68 g protein, and 1529mL fluid/day. PO intake to be established on modified diet- may only be pleasure feeds, but Enoc encouraged to follow-up w/ RDN if PO intake becomes significant- may be able to decrease amount of enteral nutrition provided. Called earlier this date from [facility] home health care RN- concerns about hyperglycemia w/ no DM medications ordered. Discussed w/ RN- this RDN unsure of discharge orders for DM management, would need to follow-up w/ PCP for clarification/further orders.
== END 2022-02-22 22:00 | disposition home health service (06) | DRG 326 ==
LOC: ED 18:13 → PCU 19:03 → ICU 19:27 → MS3 02-18 13:12
PROVIDERS: Anesthesiology; Internal Medicine Critical Care Medicine; Internal Medicine Gastroenterology; Emergency Provider Emergency Medicine; PCP Internal Medicine; Visit Provider Internal Medicine
PROC: 0DJ08ZZ Inspection of Upper Intestinal Tract, Via Natural or Artificial Opening Endoscopic (ICD-10-PCS; CPT 43235; principal; 2022-02-19 13:55)
PROC: 0DJD8ZZ Inspection of Lower Intestinal Tract, Via Natural or Artificial Opening Endoscopic (ICD-10-PCS; CPT 45378; principal; 2022-02-20 12:10)
DX: K92.2 Gastrointestinal hemorrhage, unspecified (principal); R57.8 Other shock; I63.9 Cerebral infarction, unspecified; E43 Unspecified severe protein-calorie malnutrition; A04.72 Enterocolitis due to Clostridium difficile, not specified as recurrent; B37.81 Candidal esophagitis; D62 Acute posthemorrhagic anemia; Z68.1 Body mass index [BMI] 19.9 or less, adult; N30.00 Acute cystitis without hematuria; E11.43 Type 2 diabetes mellitus with diabetic autonomic (poly)neuropathy; E11.65 Type 2 diabetes mellitus with hyperglycemia; Z93.1 Gastrostomy status; K31.84 Gastroparesis; I10 Essential (primary) hypertension; E78.5 Hyperlipidemia, unspecified; K29.70 Gastritis, unspecified, without bleeding; K44.9 Diaphragmatic hernia without obstruction or gangrene; K60.2 Anal fissure, unspecified; K52.9 Noninfective gastroenteritis and colitis, unspecified; K21.00 Gastro-esophageal reflux disease with esophagitis, without bleeding; K63.5 Polyp of colon; R62.7 Adult failure to thrive; N40.0 Benign prostatic hyperplasia without lower urinary tract symptoms; Z79.82 Long term (current) use of aspirin; R00.0 Tachycardia, unspecified; Z86.73 Personal history of transient ischemic attack (TIA), and cerebral infarction without residual deficits; Z79.02 Long term (current) use of antithrombotics/antiplatelets; F32.A Depression, unspecified; B96.20 Unspecified Escherichia coli [E. coli] as the cause of diseases classified elsewhere
CPT/HCPCS: 36415; 71045; 74174; 74230; 80048; 80053; 81001; 82962; 83605; 85014; 85018; 85025; 85610; 85730; 86850; 86900; 86901; 86920; 87040; 87077; 87186; 87493; 87506; 88305; 92526; 92610; 92611; 93005; 97116; 97162; 97166; 97530; 97535; 97802; 97803; 99285; J7030; Q9967; A4216; J2405

== ENCOUNTER 2022-02-28 17:12 | Emergency (ER) | payer MEDICARE, OTHER, SELFPAY ==
[2022-02-28 17:13] VITALS: TEMP 36.5; BMI 21.9
[2022-02-28 17:18] VITALS: BP 115/77; PULSE 84; RESP 15; TEMP 36.5; O2SAT 100; BMI 19.8
--- NOTE | 2022-02-28 17:34 | EDS_ITS ---
HPI History of Present Illness Chief Complaint: Weakness Informant: patient Onset/Context/Timing Onset: Today and Hours (2) Context: Gradual Onset Timing: Continuous Quality: Nausea Location: Abdomen Worsened by: Nothing Relieved by: Nothing Narrative Narrative: Patient presents for G-tube check. Patient had a G-tube placed recently and is getting tube feeds through this. Son states that the patient's residuals were more than 100 today. Son states that the patient is somewhat weaker than usual. Son states the patient has had some nausea but has not had any vomiting at all. Son states that the patient is starting to feel better since they got here to the emergency department. [facility] Medical History Anxiety and depression BPH (benign prostatic hyperplasia) CVA (cerebral vascular accident) Diabetes mellitus Gastroparesis HLD (hyperlipidemia) HTN (hypertension) Home Medications aspirin 81 mg tablet,delayed release (Adult Aspirin Regimen) 81 mg PO DAILY@0800 [facility] 02/10/19 [History Last Taken 11/02/19] atorvastatin 40 mg tablet 40 mg PO QHS Check with primary doctor ##0 11/15/19 [Rx Last Taken 03/20/20 19:59] tamsulosin 0.4 mg capsule 0.8 mg PO QHS Check with primary doctor 03/21/20 [History Last Taken Unknown] acetaminophen 500 mg tablet 1,000 mg PO Q6H PRN PRN Pain Score 1-03/2503/29/20 [Rx Last Taken Unknown] menthol 0.44 %-zinc oxide 20.6 % topical ointment 1 applic topical 0600,2200 03/29/20 [Rx Last Taken Unknown] pantoprazole 40 mg tablet,delayed release 40 mg PO BID Check with primary doctor #60 tabs 03/29/20 [Rx Last Taken Unknown] metoclopramide HCl 5 mg tablet 5 mg PO BID 02/16/22 [History Last Taken Unknown] cephalexin 500 mg capsule 500 mg G-tube Q8 10 days #30 caps 02/22/22 [Rx Last Taken Unknown] food supplemt, lactose-reduced 0.08 gram-1.5 kcal/mL oral liquid (Ensure Plus High Protein) 120 ml G-tube Q6 30 days #14,000 mL 02/22/22 [Rx Last Taken Unknown] ondansetron 4 mg disintegrating tablet 4 mg PO Q6H PRN PRN NAUSEA #120 tabs 02/22/22 [Rx Last Taken Unknown] vancomycin 25 mg/mL oral solution (Firvanq) 125 mg (5 mL) G-tube Q6 14 days #280 mL 02/22/22 [Rx Last Taken Unknown] Allergy/AdvReac Type Severity Reaction Status Date / Time No Known Allergies Allergy Verified 02/28/22 17:20 Family History Mother Myocardial infarction Surgical History History of loop recorder (11/22/19) Social History household members: children and other housing: house Smoking Status: Never smoker alcohol intake: current alcohol intake frequency: a few times a week substance use type: does not use caffeine: Yes Type: coffee and tea ROS ROS ED Constitutional Constitutional ED: Denies chills or fever(s) Eyes Eyes: Denies blurry vision or change in vision ENT ENT ED: Denies rhinorrhea or sore throat Cardiovascular Cardiovascular: Denies chest pain or palpitations Respiratory/Chest Respiratory/Chest: Denies cough or dyspnea Gastrointestinal Gastrointestinal: Reports abdominal pain and nausea; Denies vomiting Genitourinary Genitourinary ED: Denies dysuria or hematuria Musculoskeletal Musculoskeletal: Denies back pain or neck pain Integumentary Reports rash; Denies abscess Neurologic Neurologic: Denies headache(s) or weakness Allergic/Immunologic Allergic/Immunologic ED: Denies mouth swelling or urticaria EXAM Physical Exam Const Vital Signs: 02/28/22 17:13 02/28/22 17:18 02/28/22 17:22 Temperature 97.7 F L 97.7 F L Temperature Source Temporal Temporal Pulse Rate 84 Respiratory Rate 15 Respiratory Effort Normal Non-Labored Respiratory Pattern Normal Blood Pressure 115/77 Blood Pressure Mean 89 Pulse Ox 100 Oxygen Delivery Method Room Air Positive well nourished and well developed General Appearance ED: well developed and NAD Neck supple and no JVD Resp normal respiratory effort and clear to auscultation bilaterally Cardio regular rate and regular rhythm GI non-tender and non-distended Auscultation: normoactive bowel sounds Palpation: soft MDM MDM MDM Narrative Medical decision making narrative: CBC shows anemia with a hemoglobin of 8.9 and hematocrit 27.4. This is stable. Comprehensive metabolic profile shows a slightly elevated alkaline phosphatase of 212. Glucose was 144. Lipase was only slightly elevated at 501. CT scan of the abdomen pelvis was obtained. There is no evidence of bowel obstruction. There is some nonspecific gastric distention. There is a area of narrowing of the sigmoid colon possibly due to spasm or inflammation. This was interpreted by the radiologist and reviewed by myself. Results were discussed with the son. Patient will be discharged home. Patient was instructed to follow-up with his primary care physician in 5 to 7 days. Son was instructed to have them slow down the tube feedings. Son understood and was agreeable with the plan. All questions were answered. Lab Data Attestation: I reviewed the patient's lab results. Labs: Laboratory Results - last 24 hr 02/28/22 02/28/22 16:03 16:03 WBC 9.8 RBC 3.21 L Hgb 8.9 L Hct 27.4 L MCV 85.4 MCH 27.7 MCHC 32.5 RDW Std Deviation 53.4 H RDW Coeff of Brunilda 17.5 H Plt Count 296 MPV 9.1 Immature Gran % (Auto) 0.700 Neut % (Auto) 75.8 H Lymph % (Auto) 15.7 L [place] % (Auto) 6.9 Eos % (Auto) 0.4 Baso % (Auto) 0.5 Absolute Neuts (auto) 7.4 Absolute Lymphs (auto) 1.53 Nucleated RBC % 0 Sodium 136 Potassium 4.5 Chloride 100 Carbon Dioxide 29.0 Anion Gap 7 BUN 8 Creatinine 0.49 L Estim Creat Clear Calc 50.40 Est GFR (MDRD) Af Amer 211 Est GFR (MDRD) Non-Af 174 BUN/Creatinine Ratio 16.3 Glucose 144 H Calcium 8.7 Total Bilirubin 0.60 AST 30 ALT 49 Alkaline Phosphatase 212 H Total Protein 5.6 L Albumin 2.0 L Globulin 3.6 Albumin/Globulin Ratio 0.6 L Lipase 501 H Radiography Diagnostic Testing: Clinical Impression(s) from Imaging Studies Abdomen/Pelvis CT 02/28/22 17:50 IMPRESSION: Diffuse nonspecific gastric distention and ileus possibly on the basis of gastroenteritis.. No evidence for small bowel obstruction. Narrowed segment of the sigmoid colon possibly due to spasm or inflammatory changes as this is new finding since previous study. Other findings as above Electronically Signed: Hola Perry MD at 18:28 EDT , Discharge Plan Triage Chief Complaint: Weakness ED Provider: Trell Bro Dx/Rx/DC Orders Clinical Impression: Gastroparesis, Abdominal pain Instructions: Gastroparesis Prescriptions: No Action aspirin [Adult Aspirin Regimen] 81 mg tablet,delayed release (DR/EC) 81 mg PO DAILY@0800 atorvastatin 40 mg tablet 40 mg PO QHS Qty: 0 0RF tamsulosin 0.4 MG capsule 0.8 mg PO QHS acetaminophen 500 MG tablet 1,000 mg PO Q6H PRN PRN (Reason: Pain Score 1-10/10) 0RF menthol-zinc oxide 1 APPLIC ointment 1 applic TOPICAL 0600,2200 0RF Protocol: *Topical Application Instructions APPLICATION INSTRUCTIONS: bilateral buttocks pantoprazole 40 MG tablet 40 mg PO BID Qty: 60 0RF metoclopramide HCl 5 mg tablet 5 mg PO BID cephalexin 500 mg Capsule 500 mg G-tube Q8 10 Days Qty: 30 0RF Ensure Plus High Protein 0.08 gram-1.5 kcal/mL Liquid 120 ml G-tube Q6 30 Days Qty: 94826 0RF Firvanq 25 mg/mL Recon Soln 125 mg G-tube Q6 14 Days Qty: 280 0RF ondansetron 4 MG tablet 4 mg PO Q6H PRN PRN (Reason: NAUSEA) Qty: 120 0RF Primary Care Provider: Diamond Acevedo Referrals: Diamond Acevedo MD [Primary Care Provider] - 3-5 Days Disposition Disposition: Home, Self Care
[2022-02-28 17:47] LABS: Absolute Lymphocyte Count 1.53 X10^3/uL (0.83-4.51); Absolute Neutrophil Count 7.4 X10^3/uL (2.0-7.7); Basophil# 0.05 X10^3/uL; Basophil% 0.5 % (0-1); Eosinophil# 0.04 X10^3/uL; Eosinophils% 0.4 % (0-5); Hematocrit 27.4 % (40-54); Hemoglobin 8.9 g/dL (13.0-16.5); Lymphocyte # 1.53 X10^3/ul (0.83-4.51); Lymphocyte % 15.7 % (19-41); Mean Corp Hgb Conc 32.5 g/dL (32-36); Mean Corpuscular Hgb 27.7 pg (27.0-32.0); Mean Corpuscular Volume 85.4 fL (80-94); Mean Platelet Vol. 9.1 fl (6.2-12.0); Monocyte# 0.67 X10^3/uL; Monocyte% 6.9 % (0-10); NRBC Flagged by Analyzer 0 % (0-5); Neutrophil # 7.39 X10^3/uL (2.7-7.7); Neutrophil % 75.8 % (47-70); Platelet Count 296 K/mm3 (150-450); RBC Distribution Width CV 17.5 % (11.6-14.6); RBC Distribution Width SD 53.4 fl (35.1-43.9); Red Blood Count 3.21 M/mm3 (4.6-6.2); White Blood Count 9.8 K/mm3 (4.4-11.0)
--- NOTE | 2022-02-28 17:50 | CT_ITS ---
STUDY: CT ABDOMEN AND PELVIS WITHOUT CONTRAST REASON FOR EXAM: Male, 76 years old. Abdominal pain RADIATION DOSAGE (If Supplied By Facility): CTDIvol = ( 6.04 ) mGy, DLP = ( 315.62 ) mGycm TECHNIQUE: Transaxial images were obtained from the dome of the diaphragm to the symphysis pubis without oral contrast, and without intravenous contrast. Sagittal and coronal images were reconstructed. Individualized dose optimization techniques were used for this CT. COMPARISON: 05/23/2021 FINDINGS: There are small bilateral pleural effusions and bibasilar atelectasis.. Heart is enlarged. There is multivessel coronary artery disease. There is a small pericardial effusion. Normal liver. Normal gallbladder and extrahepatic biliary system. Normal spleen. Normal pancreas. Normal bilateral adrenal glands. Normal right kidney. Normal left kidney. PEG tube is noted within the gastric body.. There is diffuse gastric distention with associated ileus which may be on the basis of gastroenteritis. There is no evidence for small bowel obstruction.. There is focal narrowed segment of the sigmoid colon of uncertain etiology possibly inflammatory changes or spasm as this is a new finding since prior exam.. No evidence for acute appendicitis. Atherosclerotic changes of the aorta without evidence for aneurysm.. Normal inferior vena cava. Normal retroperitoneum. Normal urinary bladder. Nonspecific enlargement of prostate. Moderate size fat-containing umbilical hernia noted. Lumbar spine demonstrates degenerative change. Grade 1 spondylolisthesis at L5-S1. CT/Abdomen/Pelvis without Cont IMPRESSION: Diffuse nonspecific gastric distention and ileus possibly on the basis of gastroenteritis.. No evidence for small bowel obstruction. Narrowed segment of the sigmoid colon possibly due to spasm or inflammatory changes as this is new finding since previous study. Other findings as above Electronically Signed: Hola Perry MD at 18:28 EDT ,
[2022-02-28 18:10] LABS: ALB/GLOB Ratio 0.6 RATIO (0.9-2.4); AST(SGOT) 30 U/L (15-37); Alanine Aminotransfer ALT/SGPT 49 U/L (16-61); Alkaline Phosphatase 212 U/L (45-117); Anion Gap 7 (5-15); BUN 8 mg/dL (7-18); BUN/Creat Ratio 16.3 RATIO (10-20); Calcium,Total 8.7 mg/dL (8.5-10.1); Chloride 100 mmol/L (98-107); Creatinine, Serum 0.49 mg/dL (0.70-1.30); EST Glomerular Filtration Rate 174 mL/min (>60); Est Glom Filt Rate - Afr Amer 211 mL/min (>60); Globulin 3.6 g/dL (2.2-4.2); Glucose 144 mg/dL (74-106); Lipase 501 U/L (73-393); Potassium 4.5 mmol/L (3.5-5.1); Protein, Total 5.6 g/dL (6.4-8.2); Sodium Level 136 mmol/L (136-145)
--- NOTE | 2022-02-28 18:46 | ED.RN ---
RESIDUAL CHECKED THROUGH [employer]. 40CC NOTED.
[2022-02-28 19:13] VITALS: PULSE 79; RESP 16; O2SAT 99
== END 2022-02-28 19:26 | disposition home or self-care (01) ==
PROVIDERS: Emergency Provider Emergency Medicine; PCP Internal Medicine; Visit Provider Emergency Medicine
DX: R10.9 Unspecified abdominal pain (principal); E11.43 Type 2 diabetes mellitus with diabetic autonomic (poly)neuropathy; K31.84 Gastroparesis; R53.1 Weakness; I10 Essential (primary) hypertension; E78.5 Hyperlipidemia, unspecified; Z79.82 Long term (current) use of aspirin; Z79.899 Other long term (current) drug therapy
CPT/HCPCS: 74176; 80053; 83690; 85025; 99284; A4216

== ENCOUNTER → 2022-03-19 | Outpatient (CLI) | payer MEDICARE, OTHER, SELFPAY ==
[2022-03-19 11:33] LABS: Color, Urine Yellow (Yellow); Glucose, Dipstick Normal (Normal); Ketone-Dipstick 5 mg/dl (Negative); Leukocyte Esterase-Dipstick 100 /ul (Negative); Nitrite-Dipstick Positive (Negative); Occult Blood-Urine Negative /ul (Negative); Protein-Dipstick 15 mg/dl (Negative); Urine Bilirubin Dipstick Negative (Negative); Urine Clarity Sl. Cloudy (Clear); Urine Urobilinogen Normal (Normal)
[2022-03-19 11:44] LABS: Anion Gap 8 (5-15); BUN 8 mg/dL (7-18); BUN/Creat Ratio 13.1 RATIO (10-20); Calcium,Total 9.1 mg/dL (8.5-10.1); Chloride 102 mmol/L (98-107); Creatinine, Serum 0.61 mg/dL (0.70-1.30); EST Glomerular Filtration Rate 136 mL/min (>60); Est Glom Filt Rate - Afr Amer 165 mL/min (>60); Glucose 107 mg/dL (74-106); Magnesium 1.8 mg/dL (1.6-2.6); Phosphorus 3.6 mg/dL (2.5-4.9); Potassium 4.4 mmol/L (3.5-5.1); Sodium Level 134 mmol/L (136-145)
[2022-03-19 11:48] LABS: Urine Sodium 42 mmol/L (Not Establ.)
== END | disposition home or self-care (01) ==
PROVIDERS: PCP Internal Medicine
DX: Z43.1 Encounter for attention to gastrostomy (principal); E43 Unspecified severe protein-calorie malnutrition; K92.2 Gastrointestinal hemorrhage, unspecified
CPT/HCPCS: 80048; 81002; 83735; 84100; 84133; 84300

== ENCOUNTER 2022-06-01 22:49 | Inpatient (IN) | payer MEDICARE, OTHER, SELFPAY ==
[2022-06-01 22:52] VITALS: BP 143/94; PULSE 79; RESP 14; TEMP 36.8; O2SAT 98; BMI 21.7
[2022-06-02] VITALS (8 sets, daily range): BP systolic 123–142; BP diastolic 82–90; PULSE 62–76; RESP 14–18; TEMP 36.3–36.8; O2SAT 96–100; BMI 28.4
[2022-06-02 00:19] LABS: Absolute Lymphocyte Count 1.81 X10^3/uL (0.83-4.51); Absolute Neutrophil Count 5.2 X10^3/uL (2.0-7.7); Basophil# 0.06 X10^3/uL; Basophil% 0.8 % (0-1); Eosinophil# 0.17 X10^3/uL; Eosinophils% 2.2 % (0-5); Hematocrit 37.4 % (40-54); Lymphocyte # 1.81 X10^3/ul (0.83-4.51); Lymphocyte % 22.9 % (19-41); Mean Corp Hgb Conc 32.1 g/dL (32-36); Mean Corpuscular Hgb 26.3 pg (27.0-32.0); Mean Platelet Vol. 9.8 fl (6.2-12.0); Monocyte# 0.66 X10^3/uL; Monocyte% 8.4 % (0-10); NRBC Flagged by Analyzer 0 % (0-5); Neutrophil # 5.16 X10^3/uL (2.7-7.7); Neutrophil % 65.3 % (47-70); Platelet Count 310 K/mm3 (150-450); RBC Distribution Width CV 14.5 % (11.6-14.6); RBC Distribution Width SD 43.1 fl (35.1-43.9); Red Blood Count 4.56 M/mm3 (4.6-6.2); White Blood Count 7.9 K/mm3 (4.4-11.0)
[2022-06-02 00:29] LABS: International Normalized Ratio 1.1; Partial Thromboplast Time 30.7 Seconds (24.1-36.2); Prothrombin Time (Protime)PT. 13.7 SECONDS (11.7-14.9)
[2022-06-02 00:31] LABS: AST(SGOT) 15 U/L (15-37); Alanine Aminotransfer ALT/SGPT 21 U/L (16-61); Albumin, Serum 2.9 g/dL (3.2-5.0); Alkaline Phosphatase 99 U/L (45-117); Anion Gap 5 (5-15); BUN 22 mg/dL (7-18); BUN/Creat Ratio 35.7 RATIO (10-20); Bilirubin, Direct 0.13 mg/dL (0.00-0.30); Calcium,Total 9.4 mg/dL (8.5-10.1); Chloride 104 mmol/L (98-107); Creatinine, Serum 0.62 mg/dL (0.70-1.30); EST Glomerular Filtration Rate 134 mL/min (>60); Est Glom Filt Rate - Afr Amer 162 mL/min (>60); Estimated Creatinine Clearance 50.98 ml/min; Globulin 4.6 g/dL (2.2-4.2); Glucose 193 mg/dL (74-106); Potassium 4.2 mmol/L (3.5-5.1); Protein, Total 7.5 g/dL (6.4-8.2); Sodium Level 138 mmol/L (136-145)
--- NOTE | 2022-06-02 01:16 | EX.ED.DYSGE1 ---
HPI History of Present Illness Chief Complaint: GI Bleed Informant: patient and family Onset/Context/Timing Onset: Today Context: Gradual Onset Current Severity: Mild Maximum Severity: Mild Narrative Narrative: Patient presents secondary to rectal bleeding. Son states that he has had bleeding from his rectum all day today. He does have hemorrhoids, however was also admitted 3 months ago with a GI bleed secondary to C. difficile colitis. Patient denies abdominal pain. [facility] Medical History Anxiety and depression BPH (benign prostatic hyperplasia) CVA (cerebral vascular accident) Diabetes mellitus Gastroparesis HLD (hyperlipidemia) HTN (hypertension) Home Medications aspirin 81 mg tablet,delayed release (Adult Aspirin Regimen) 81 mg PO DAILY@0800 [facility] 02/10/19 [History Last Taken 11/02/19] atorvastatin 40 mg tablet 40 mg PO QHS Check with primary doctor ##0 11/15/19 [Rx Last Taken 03/20/20 19:59] tamsulosin 0.4 mg capsule 0.8 mg PO QHS Check with primary doctor 03/21/20 [History Last Taken Unknown] acetaminophen 500 mg tablet 1,000 mg PO Q6H PRN PRN Pain Score 1-03/2503/29/20 [Rx Last Taken Unknown] menthol 0.44 %-zinc oxide 20.6 % topical ointment 1 applic topical 0600,2200 03/29/20 [Rx Last Taken Unknown] pantoprazole 40 mg tablet,delayed release 40 mg PO BID Check with primary doctor #60 tabs 03/29/20 [Rx Last Taken Unknown] metoclopramide HCl 5 mg tablet 2.5 mg PO BID 02/16/22 [History Last Taken Unknown] food supplemt, lactose-reduced 0.08 gram-1.5 kcal/mL oral liquid (Ensure Plus High Protein) 120 ml G-tube Q6 30 days #14,000 mL 02/22/22 [Rx Last Taken Unknown] clopidogrel 75 mg tablet 75 mg PO DAILY 06/02/22 [History Last Taken Unknown] mirtazapine 7.5 mg tablet 7.5 mg PO DAILY 06/02/22 [History Last Taken Unknown] omeprazole 20 mg capsule,delayed release mg 06/02/22 [History Last Taken Unknown] Allergy/AdvReac Type Severity Reaction Status Date / Time No Known Allergies Allergy Verified 06/01/22 22:55 Family History Mother Myocardial infarction Surgical History History of loop recorder (11/22/19) Social History household members: children and other housing: house Smoking Status: Never smoker alcohol intake: current alcohol intake frequency: a few times a week substance use type: does not use caffeine: Yes Type: coffee and tea ROS ROS ED Constitutional Constitutional ED: Denies chills or fever(s) Eyes Eyes: Denies change in vision or discharge from eye(s) ENT ENT ED: Denies discharge from eye(s), rhinorrhea or sore throat Cardiovascular Cardiovascular: Denies chest pain or palpitations Respiratory/Chest Respiratory/Chest: Denies cough or dyspnea Gastrointestinal Gastrointestinal: Reports diarrhea and melena; Denies abdominal pain, nausea or vomiting Genitourinary Genitourinary ED: Denies dysuria Musculoskeletal Musculoskeletal: Denies back pain or extremity pain Integumentary Denies Abrasions or rash Neurologic Neurologic: Reports weakness; Denies headache(s) Allergic/Immunologic Allergic/Immunologic ED: Denies lip swelling or urticaria EXAM Physical Exam Const Vital Signs: 06/01/22 22:52 Temperature 98.3 F Temperature Source Temporal Pulse Rate 79 Respiratory Rate 14 Blood Pressure 143/94 H Blood Pressure Mean 110 Pulse Ox 98 Oxygen Delivery Method Room Air Positive well nourished and well developed General Appearance ED: well developed HEENT Reports normocephalic and head/scalp atraumatic Eyes PERRL and EOMs intact bilaterally Neck supple Chest Wall inspection of chest normal and palpation of chest normal Resp normal respiratory effort and clear to auscultation bilaterally Cardio regular rate and regular rhythm GI non-tender GI Narrative: Brown stool with some blood streaks noted. Auscultation: hypoactive bowel sounds Palpation: soft Extremity normal to inspection Neuro Neuro Narrative: Answers questions appropriately. Sensorium / Orientation: alert Psych mental status grossly normal Skin no rashes or lesions noted MDM MDM MDM Narrative Medical decision making narrative: Patient initiated on IV fluids. Lab work obtained along with CT scan of the abdomen and pelvis with IV contrast. Lab Data Attestation: I reviewed the patient's lab results. Labs: Laboratory Results - last 24 hr 06/02/22 06/02/22 06/02/22 00:03 00:03 00:03 WBC 7.9 RBC 4.56 L Hgb 12.0 L Hct 37.4 L MCV 82.0 MCH 26.3 L MCHC 32.1 RDW Std Deviation 43.1 RDW Coeff of Brunilda 14.5 Plt Count 310 MPV 9.8 Immature Gran % (Auto) 0.400 Neut % (Auto) 65.3 Lymph % (Auto) 22.9 [place] % (Auto) 8.4 Eos % (Auto) 2.2 Baso % (Auto) 0.8 Absolute Neuts (auto) 5.2 Absolute Lymphs (auto) 1.81 Nucleated RBC % 0 PT 13.7 INR 1.1 APTT 30.7 Sodium 138 Potassium 4.2 Chloride 104 Carbon Dioxide 29.0 Anion Gap 5 BUN 22 H Creatinine 0.62 L Estim Creat Clear Calc 50.98 Est GFR (MDRD) Af Amer 162 Est GFR (MDRD) Non-Af 134 BUN/Creatinine Ratio 35.7 H Glucose 193 H Lactic Acid Calcium 9.4 Total Bilirubin 0.30 Direct Bilirubin 0.13 AST 15 ALT 21 Alkaline Phosphatase 99 Total Protein 7.5 Albumin 2.9 L Globulin 4.6 H 06/02/22 00:55 WBC RBC Hgb Hct MCV MCH MCHC RDW Std Deviation RDW Coeff of Brunilda Plt Count MPV Immature Gran % (Auto) Neut % (Auto) Lymph % (Auto) [place] % (Auto) Eos % (Auto) Baso % (Auto) Absolute Neuts (auto) Absolute Lymphs (auto) Nucleated RBC % PT INR APTT Sodium Potassium Chloride Carbon Dioxide Anion Gap BUN Creatinine Estim Creat Clear Calc Est GFR (MDRD) Af Amer Est GFR (MDRD) Non-Af BUN/Creatinine Ratio Glucose Lactic Acid 2.4 H* Calcium Total Bilirubin Direct Bilirubin AST ALT Alkaline Phosphatase Total Protein Albumin Globulin Radiography Diagnostic Testing: Clinical Impression(s) from Imaging Studies Abdomen/Pelvis CT 06/02/22 23:41 IMPRESSION: 1. Constipation with possible constricting lesion/neoplasm at distal sigmoid colon. Recommend follow-up colonoscopy. 2. Rectal hemorrhoids. 3. Other nonurgent findings within body of report. Electronically Signed: Luis Collins MD at 1:16 EST , Treatment and Re-Evaluation Narrative: CBC was normal white count. Hemoglobin is 12.0 which is improved over his prior labs during his admission with GI bleed. Chemistry studies unremarkable other than BUN slightly elevated at 22 and glucose at 193. LFTs are normal. Lactic acid is 2.4. CT scan of the abdomen pelvis reveals constipation with possible lesion or neoplasm of the distal sigmoid colon. Rectal hemorrhoids are noted. The patient just had a colonoscopy performed in February. A CT scan at that time also commented on a possible constricting lesion at the sigmoid. On colonoscopy this area revealed inflammation and colitis. With again showing stricture to this area and concerned that his colitis is flaring in addition to the hemorrhoids that he has. I spoke with Dr. Kuhn. He states the patient can get recurrent ischemic colitis in a certain area if is not getting good blood flow to that portion. He recommended observing the patient overnight and getting a CTA of the abdomen and pelvis tomorrow. I will speak with the hospitalist for admission. Discharge Plan Triage Chief Complaint: GI Bleed ED Provider: Jaylin Jackson Dx/Rx/DC Orders Clinical Impression: GI bleed Prescriptions: No Action aspirin [Adult Aspirin Regimen] 81 mg tablet,delayed release (DR/EC) 81 mg PO DAILY@0800 atorvastatin 40 mg tablet 40 mg PO QHS Qty: 0 0RF tamsulosin 0.4 MG capsule 0.8 mg PO QHS acetaminophen 500 MG tablet 1,000 mg PO Q6H PRN PRN (Reason: Pain Score 1-10/10) 0RF menthol-zinc oxide 1 APPLIC ointment 1 applic TOPICAL 0600,2200 0RF Protocol: *Topical Application Instructions APPLICATION INSTRUCTIONS: bilateral buttocks pantoprazole 40 MG tablet 40 mg PO BID Qty: 60 0RF metoclopramide HCl 5 mg tablet 2.5 mg PO BID Ensure Plus High Protein 0.08 gram-1.5 kcal/mL Liquid 120 ml G-tube Q6 30 Days Qty: 93215 0RF clopidogrel 75 mg Tablet 75 mg PO DAILY omeprazole 20 mg Capsule,Delayed Release(Dr/Ec) mirtazapine 7.5 mg Tablet 7.5 mg PO DAILY Primary Care Provider: Diamond Acevedo Referrals: Diamond Acevedo MD [Primary Care Provider] - Disposition Disposition: Acute Care [facility]
[2022-06-02 01:48] LABS: Lactic Acid 2.4 mmol/L (0.4-1.9)
[2022-06-02] MEDS: 0.9% Normal Saline 1,000 ML 150 ML IV (01:51)
--- NOTE | 2022-06-02 02:56 | PCM.HP.STD ---
HPI - General General Date of Admission: 06/02/22 Date of Service: 06/02/22 Chief Complaint: Bright red blood per rectum HPI Narrative KIMBERLEE DEAN, is a 77 M with a significant history of CVA who presents to the emergency department with bright red blood per rectum. Patient had multiple episodes of pure bright red blood without any stool. Patient has hemorrhoids by reportedly it was that this was more than a hemorrhoidal bleed. Patient denies any nausea, vomiting or abdominal pain. At the time of hospitalist evaluation per patient's son who was at the bedside patient bleeding stopped. Imaging department doctor reports rectal examination done showed external hemorrhoids and brown stool with streaks of blood. Patient's son who was at the bedside thinks that the patient had CVA in 2019 for which reason he is on aspirin and Plavix. Patient has no residual deficits from his CVA. Of note patient was at hospital in February 2022 for GI bleed. Patient had a colonoscopy that showed C. difficile colitis. At that time patient was placed on a PEG tube. Per patient's a PEG tube is for formula supplementation. Patient take his meds by mouth and he can also eat by mouth. [facility] Medical History Anxiety and depression BPH (benign prostatic hyperplasia) CVA (cerebral vascular accident) Diabetes mellitus Gastroparesis HLD (hyperlipidemia) HTN (hypertension) Home Medications aspirin 81 mg tablet,delayed release (Adult Aspirin Regimen) 81 mg PO DAILY@0800 [facility] 02/10/19 [History Last Taken 11/02/19] metoclopramide HCl 5 mg tablet 2.5 mg PO BID 02/16/22 [History Last Taken Unknown] clopidogrel 75 mg tablet 75 mg PO DAILY 06/02/22 [History Last Taken Unknown] mirtazapine 7.5 mg tablet 7.5 mg PO DAILY 06/02/22 [History Last Taken Unknown] omeprazole 20 mg capsule,delayed release mg 06/02/22 [History Last Taken Unknown] Allergy/AdvReac Type Severity Reaction Status Date / Time No Known Allergies Allergy Verified 06/01/22 22:55 Family History Mother Myocardial infarction Surgical History History of loop recorder (11/22/19) Social History household members: children and other housing: house Smoking Status: Never smoker alcohol intake: current alcohol intake frequency: a few times a week substance use type: does not use caffeine: Yes Type: coffee and tea Vital Signs Vital Signs Vital Signs: 06/01/22 22:52 Temperature 98.3 F Temperature Source Temporal Pulse Rate 79 Respiratory Rate 14 Blood Pressure 143/94 H Blood Pressure Mean 110 Pulse Ox 98 Oxygen Delivery Method Room Air Weight Weight: 59.2 kg Body Mass Index (BMI) 21.7 Physical Exam Narrative Physical exam: General: Well-nourished, well-developed. Head: Normocephalic, atraumatic, no tenderness Eyes: Vision is grossly intact. EOMI ENT, no trauma, moist mucous membranes, no rhinorrhea Neck: Nontender, No thyromegaly. CVS: Regular rate and rhythm. S1-S2 present. No murmur, gallop or rub. Respiratory : clear to auscultation bilaterally, chest wall nontender, no wheezing Abdomen: Soft, nontender, nondistended, normal bowel sounds, no masses : Deferred Extremities: Nontender full range of motion, no trauma Skin: Normal color, no trauma, abrasions Neuro: Alert, oriented, cranial nerves II through XII grossly intact. Psychiatry: Normal mood. Normal affect. Not depressed. Not anxious. Results Lab / Micro Data Result Diagrams: 06/02/22 00:03 06/02/22 00:03 Labs: Laboratory Results - last 24 hr 06/02/22 00:03: WBC 7.9, RBC 4.56 L, Hgb 12.0 L, Hct 37.4 L, MCV 82.0, MCH 26.3 L, MCHC 32.1, RDW Std Deviation 43.1, RDW Coeff of Brunilda 14.5, Plt Count 310, MPV 9.8, Immature Gran % (Auto) 0.400, Neut % (Auto) 65.3, Lymph % (Auto) 22.9, [place] % (Auto) 8.4, Eos % (Auto) 2.2, Baso % (Auto) 0.8, Absolute Neuts (auto) 5.2, Absolute Lymphs (auto) 1.81, Nucleated RBC % 0 06/02/22 00:03: PT 13.7, INR 1.1, APTT 30.7 06/02/22 00:03: Sodium 138, Potassium 4.2, Chloride 104, Carbon Dioxide 29.0, Anion Gap 5, BUN 22 H, Creatinine 0.62 L, Estim Creat Clear Calc 50.98, Est GFR (MDRD) Af Amer 162, Est GFR (MDRD) Non-Af 134, BUN/Creatinine Ratio 35.7 H, Glucose 193 H, Calcium 9.4, Total Bilirubin 0.30, Direct Bilirubin 0.13, AST 15, ALT 21, Alkaline Phosphatase 99, Total Protein 7.5, Albumin 2.9 L, Globulin 4.6 H 06/02/22 00:55: Lactic Acid 2.4 H* Radiology Impression Abdomen/Pelvis CT 06/02/22 23:41 IMPRESSION: 1. Constipation with possible constricting lesion/neoplasm at distal sigmoid colon. Recommend follow-up colonoscopy. 2. Rectal hemorrhoids. 3. Other nonurgent findings within body of report. Electronically Signed: Luis Collins MD at 1:16 EST , Assessment & Plan Assessment/Plan (1) GI bleed: PLAN: Plan Acute GI bleed His hemoglobin on presentation was 12.0 which is actually stable compared to previous records. Impression of abdomen/pelvis CT radiologist: 1.? Constipation with possible constricting lesion/neoplasm at distal sigmoid colon.? Recommend follow-up colonoscopy. 2.? Rectal hemorrhoids. 3.? Other nonurgent findings within body of report. Likely lower GI IV fluids H&H every 6 hours Hold antiplatelets No anticoagulants for DVT prophylaxis Emergency department doctor discussed the case with drug safety specialist who recommended CTA. However because CAT scan was done at the emergency department CTA can be done in 24 hours. CTA is to rule out ischemic colitis. Colonoscopy report on 02/15/2022 showed an anal fissure; colitis, 5 mm polyp that was resected. Keep n.p.o. History of CVA Resolved. Prophylactic aspirin and Plavix held. DVT prophylaxis: SCDs ordered. Charges/Coding Visit Charges Inpatient E&M: 41130 Init Hosp L2
[2022-06-02 05:01] LABS: Reflex Lactate? Y
[2022-06-02] MEDS: 0.9% Saline Lock 10 ML Syringe IV (06:00)
[2022-06-02] MEDS: 0.9% Normal Saline 1,000 ML 75 ML IV ×2 (06:00→17:55)
[2022-06-02 06:29] LABS: Hematocrit 36.2 % (40-54); Hemoglobin 11.3 g/dL (13.0-16.5)
[2022-06-02 06:57] LABS: Lactic Acid 2.4 mmol/L (0.4-1.9)
[2022-06-02 11:44] LABS: Hematocrit 35.2 % (40-54); Hemoglobin 11.4 g/dL (13.0-16.5)
--- NOTE | 2022-06-02 16:14 | PN.HOSP_ITS ---
Subjective Subjective Patient seen and examined. HE was lying quietly in bed, and would just nod or shake his head in response to questions. He hadnt had any more rectal bleeding since admission. He is awaiting GI evaluation. He has remained hemodynamically stable. Review of systems is otherwise negative. Objective Data Objective Data Vital Signs: Vital Signs Temp Pulse Resp BP Pulse Ox O2 Del Method 97.3 F L 76 16 123/84 H 98 Room Air 06/02/22 15:02 06/02/22 15:02 06/02/22 15:02 06/02/22 15:02 06/02/22 15:02 06/02/22 15:38 Oxygen Delivery Method Room Air Weight: 171 lb 1.259 oz Body Mass Index (BMI) 28.4 Intake & Output: Intake and Output for Last 24 Hours 05/31/22 06/01/22 06/02/22 23:59 23:59 23:59 Intake Total 865 / 865 Output Total 0 / 0 Balance 865 / 865 Lab / Micro Data Result Diagrams: 06/02/22 11:35 06/02/22 00:03 Labs: Laboratory Results - last 24 hr 06/02/22 00:03: WBC 7.9, RBC 4.56 L, Hgb 12.0 L, Hct 37.4 L, MCV 82.0, MCH 26.3 L, MCHC 32.1, RDW Std Deviation 43.1, RDW Coeff of Brunilda 14.5, Plt Count 310, MPV 9.8, Immature Gran % (Auto) 0.400, Neut % (Auto) 65.3, Lymph % (Auto) 22.9, [place] % (Auto) 8.4, Eos % (Auto) 2.2, Baso % (Auto) 0.8, Absolute Neuts (auto) 5.2, Absolute Lymphs (auto) 1.81, Nucleated RBC % 0 06/02/22 00:03: PT 13.7, INR 1.1, APTT 30.7 06/02/22 00:03: Sodium 138, Potassium 4.2, Chloride 104, Carbon Dioxide 29.0, Anion Gap 5, BUN 22 H, Creatinine 0.62 L, Estim Creat Clear Calc 50.98, Est GFR (MDRD) Af Amer 162, Est GFR (MDRD) Non-Af 134, BUN/Creatinine Ratio 35.7 H, Glucose 193 H, Calcium 9.4, Total Bilirubin 0.30, Direct Bilirubin 0.13, AST 15, ALT 21, Alkaline Phosphatase 99, Total Protein 7.5, Albumin 2.9 L, Globulin 4.6 H 06/02/22 00:55: Lactic Acid 2.4 H* 06/02/22 06:15: Hgb 11.3 L, Hct 36.2 L 06/02/22 06:15: Lactic Acid 2.4 H* 06/02/22 11:35: Hgb 11.4 L, Hct 35.2 L Radiography Diagnostic Testing: Radiology Impression Abdomen/Pelvis CT 06/02/22 23:41 IMPRESSION: 1. Constipation with possible constricting lesion/neoplasm at distal sigmoid colon. Recommend follow-up colonoscopy. 2. Rectal hemorrhoids. 3. Other nonurgent findings within body of report. Electronically Signed: Luis Collins MD at 1:16 EST , Physical Exam Const alert, oriented x3 and no apparent distress HEENT head/scalp atraumatic, moist oral mucous membranes and oropharynx normal Head and Scalp: normocephalic Mouth: oral and palatal mucosa normal Eyes PERRL and EOMs intact bilaterally Neck no lymphadenopathy, supple and no JVD Resp normal respiratory effort, no retractions, no use of accessory muscles and clear to auscultation bilaterally Cardio regular rate, regular rhythm, S1 normal heart sound, S2 normal heart sound and no murmurs GI normal to inspection, nondistended, normoactive bowel sounds, soft to palpation, non-tender and non-distended Extremity normal to inspection, full ROM and no clubbing, cyanosis or edema Neuro oriented x3, CN's II-XII intact bilaterally and no focal motor deficits Sensorium / Orientation: awake Psych Psych Narrative: flat affect Assessment & Plan Assessment/Plan (1) GI bleed: PLAN: Plan #Lower GI bleed * hasnt had any more rectal bleeding since admission * on Hb is 11.4 today * being hydrated wtih iVF * CT scan showed constipation with possible constricting lesion or neoplasm at distal sigmoid colon * GI consulted. For probable colonoscopy. * Continue keeping NPO. Continue hydration with IV fluids. * Of note he did have colonoscopy in February 2022 which showed anal fissures with localized moderate inflammation in the rectum secondary to colitis * #History of CVA: Aspirin and Plavix on hold. #Depression: On mirtazapine * * #Due to prophylaxis: SCDs Charges/Coding Visit Charges Inpatient E&M: 55556 Subs Hosp L2
[2022-06-02 17:52] LABS: Hematocrit 35.1 % (40-54); Hemoglobin 11.5 g/dL (13.0-16.5)
--- NOTE | 2022-06-02 23:41 | CT_ITS ---
INDICATION: GI bleed, colitis, rectal bleeding, dark stool EXAMINATION: CT Abdomen And Pelvis W/ Contrast Injection TECHNIQUE: Helically acquired images were obtained of the abdomen and pelvis following IV contrast. 2-D reconstructions reviewed. A radiation dose optimization technique was used for this scan. IV Contrast dosage and agent: 100 mL Isovue-370 Oral contrast: None. COMPARISON: Unenhanced CT abdomen and pelvis from 02/28/2022 FINDINGS: LOWER CHEST: COPD with minimal basilar atelectatic changes. Upper limits normal heart size with coronary arterial calcifications and trace pericardial effusion. Left anterior chest wall implantable cardiac loop recorder device in place. LIVER: Mild fatty infiltration. No concerning lesion. GALLBLADDER AND BILIARY TREE: No calcified gallstones identified. No gallbladder wall edema demonstrated. No significant biliary ductal dilation. PANCREAS: No discrete mass or peripancreatic edema. SPLEEN: Normal size without focal cystic or solid mass. ADRENAL GLANDS: Unremarkable. KIDNEYS AND URETERS: Normal renal size and position. No hydronephrosis. No concerning lesion. There are few subcentimeter, simple-appearing renal cysts requiring no additional follow-up. PERITONEUM: No peritoneal free air or significant free fluid. No other fluid collection. RETROPERITONEUM: No retroperitoneal mass or pathologic fluid collection. BOWEL: PEG tube tip at mid stomach. No evidence of appendicitis. No bowel obstruction. Prominent colonic fecal load with formed stool and retained barium contrast. Short segment narrowing again noted at distal sigmoid colon. No pericolonic fat stranding detected. Rectal wall hemorrhoids noted. LYMPH NODES: No enlarged mesenteric or retroperitoneal lymph nodes. VESSELS: Moderate atherosclerosis with no abdominal aortic aneurysm. URINARY BLADDER: Unremarkable as visualized. REPRODUCTIVE ORGANS: No pelvic masses. ABDOMINAL WALL: No acute findings or significant hernia defect. BONES: Skeletal degenerative changes. Degenerative disc space narrowing L4-5 and L5-S1. Chronic bilateral L5 pars defects with secondary grade 1 anterior listhesis of L5 over S1. CT/Abdomen/Pelvis W IV Cont ONLY IMPRESSION: 1. Constipation with possible constricting lesion/neoplasm at distal sigmoid colon. Recommend follow-up colonoscopy. 2. Rectal hemorrhoids. 3. Other nonurgent findings within body of report. Electronically Signed: Luis Collins MD at 1:16 EST ,
[2022-06-03] VITALS (7 sets, daily range): BP systolic 121–140; BP diastolic 68–97; PULSE 68–83; RESP 14–18; TEMP 36.4–37.3; O2SAT 95–99
[2022-06-03] MEDS: 0.9% Normal Saline 1,000 ML 75 ML IV ×2 (06:54→20:23)
--- NOTE | 2022-06-03 11:00 | PN.HOSP_ITS ---
Subjective Subjective Follow-up on acute GI bleed: Devan was seen and examined. Daughter at the bedside. Denied any dizziness or palpitation. No more bleeding per rectum noted. Denied any abdominal pain. Objective Data Objective Data Vital Signs: Vital Signs Temp Pulse Resp BP Pulse Ox O2 Del Method 97.8 F 73 16 125/86 H 98 Room Air 06/03/22 08:36 06/03/22 08:36 06/03/22 08:36 06/03/22 08:36 06/03/22 08:36 06/03/22 08:36 Oxygen Delivery Method Room Air Weight: 77.6 kg Body Mass Index (BMI) 28.4 Intake & Output: Intake and Output for Last 24 Hours 06/01/22 06/02/22 06/03/22 23:59 23:59 23:59 Intake Total 1758.75 / 1758.75 973.75 / 973.75 Output Total 0 / 0 Balance 1758.75 / 1758.75 973.75 / 973.75 Lab / Micro Data Result Diagrams: 06/02/22 17:40 06/02/22 00:03 Labs: Laboratory Results - last 24 hr 06/02/22 11:35: Hgb 11.4 L, Hct 35.2 L 06/02/22 17:40: Hgb 11.5 L, Hct 35.1 L Physical Exam Narrative Physical exam: General: Alert, Oriented x3, Cooperative, appears frail HEENT: Atraumatic Oral: Moist Mucosa Neck: Supple Lungs: Diminished to auscultation Cardiovascular: HS I+II, regular, no murmurs Abdomen: Bowel Sounds Present, Soft, Non Tender Extremities: No edema Skin: No rashes, No breakdown Neurological: Grossly intact Psych/Mental Status: Appropriate Assessment & Plan Assessment/Plan (1) GI bleed: PLAN: Plan 1. Acute recurrent lower GI bleed, unclear etiology Colonoscopy in February 2022 showed an officiates with localized moderate inflammation in the rectum secondary to colitis CT of the abdomen pelvis on admission shows constipation with possible constricting lesion/neoplasm of the distal colon This is similar to previous CT in February 2022 Hemoglobin has remained stable, no more bleeding seen Patient has been kept n.p.o., GI consulted, will follow up on recommendations 2. Anemia, microcytic microchromic, hemoglobin has been stable We will continue to trend 3. History of CVA, aspirin and Plavix on hold, continue to monitor 4. Depression, continue Remeron 5. Severe protein calorie malnutrition, chemical analytical sampler consulted, restarted on tube feeds 6. DVT prophylaxis?SCDs Charges/Coding Visit Charges Inpatient E&M: 11571 Subs Hosp L2
--- NOTE | 2022-06-03 12:40 | CON.PCM.GI_ITS ---
HPI Consult Data Date of Consult: 06/03/22 HPI Narrative Reason for Consultation: GI bleeding HPI Narrative: KIMBERLEE DEAN, is a 77 M who presents to the emergency department with bright red blood per rectum.? Patient is known to the GI service. Patient had multiple episodes of pure bright red blood without any stool.? I initially saw him 3 months ago for the consultation of acute lower GI bleed, malnutrition and progressive weight loss. He was also having diarrhea at that time. We identified that he had C. difficile colitis. We placed a PEG tube for nutrition. His BMI has now increased 22. As per the family he was eating proba skinny only 2 to 300 renetta a day and he is getting approximately 650 kcal a day via PEG tube. They say that he is multiple liquid stools during the day and on occasion he is constipated. He was seen in the office on 04/30/2022 was 126 time. When he came to the ED today to 124 pounds. Patient denies any nausea, vomiting or abdominal pain. At the time of hospitalist evaluation per patient's son who was at the bedside patient bleeding stopped. Had a CT scan of the abdomen pelvis that was similar to his previous CT scan 3 months ago. It did show a narrowing in the sigmoid colon secondary to a stricture focal spasm. His colonoscopy did show some mild inflammation in that area of the sigmoid colon that was thought to be secondary to increased stool. He had a polyp removed from the area that was hyperplastic. Emergency department doctor reports rectal examination done showed external hemorrhoids and brown stool with streaks of blood. Patient's son who was at the bedside thinks that the patient had CVA in 2019 for which reason he is on aspirin and Plavix.? Patient has no residual deficits from his CVA. [facility] Medical History (Updated 06/03/22 @ 12:[address] Santiago Friend, DO) Anxiety and depression BPH (benign prostatic hyperplasia) CVA (cerebral vascular accident) Diabetes mellitus Gastroparesis HLD (hyperlipidemia) HTN (hypertension) Sleep apnea Home Medications aspirin 81 mg tablet,delayed release (Adult Aspirin Regimen) 81 mg PO DAILY@0800 [facility] 02/10/19 [History Last Taken 11/02/19] metoclopramide HCl 5 mg tablet 2.5 mg PO BID stomach 02/16/22 [History Last T aken Unknown] clopidogrel 75 mg tablet 75 mg PO DAILY blood thinner 06/02/22 [History Last Taken Unknown] mirtazapine 7.5 mg tablet 7.5 mg PO DAILY mood 06/02/22 [History Last Taken Unknown] omeprazole 20 mg capsule,delayed release mg gerd 06/02/22 [History Last Taken Unknown] Allergy/AdvReac Type Severity Reaction Status Date / Time No Known Allergies Allergy Verified 06/01/22 22:55 Family History Mother Myocardial infarction Surgical History (Updated 06/02/22 @ 05:08 by Evonne Head) History of appendectomy History of cholecystectomy History of loop recorder (11/22/19) Social History household members: children and other housing: house Smoking Status: Never smoker alcohol intake: current alcohol intake frequency: a few times a week substance use type: does not use caffeine: Yes Type: coffee and tea ROS ROS Narrative Unable to obtain complete ROS secondary to language barrier Physical Exam Const alert, oriented x3 and no apparent distress HEENT head/scalp atraumatic, moist oral mucous membranes and oropharynx normal Head and Scalp: normocephalic Mouth: oral and palatal mucosa normal Eyes PERRL and EOMs intact bilaterally Neck no lymphadenopathy, supple and no JVD Resp normal respiratory effort, no retractions, no use of accessory muscles and clear to auscultation bilaterally Cardio regular rate, regular rhythm, S1 normal heart sound, S2 normal heart sound and no murmurs GI normal to inspection, nondistended, normoactive bowel sounds, soft to palpation, non-tender and non-distended Extremity normal to inspection, full ROM and no clubbing, cyanosis or edema Neuro oriented x3, CN's II-XII intact bilaterally and no focal motor deficits Sensorium / Orientation: awake Psych Psych Narrative: flat affect Lab / Micro Data Result Diagrams: 06/02/22 17:40 06/02/22 00:03 Labs: Laboratory Results - last 24 hr 06/02/22 17:40: Hgb 11.5 L, Hct 35.1 L Assessment & Plan Assessment/Plan (1) GI bleed: PLAN: I believe his lower GI bleeding is either hemorrhoidal or secondary to a previous anal fissure that was treated endoscopically. I think he is developing recurrent GI bleeding secondary to malnutrition and due to the fact that he sitting a lot which makes him for hemorrhoids. He also has excoriated rectum from the stool burden with rectal prolapse (2) Anemia: PLAN: Will. His hemoglobin seems to be stable at 11.6. Endoscopic procedure at this time. (3) Diarrhea: PLAN: His family reports diarrhea is due to C. difficile colitis we should rep eat his stool studies (4) Constipation: PLAN: I will restart his tube feedings and Colace 100 mg twice a day Charges/Coding Visit Charges Inpatient E&M: 20958 Init Hosp L3
[2022-06-03] MEDS: Ensure Plus High Protein 120 ML LIQUID GT ×2 (14:00→16:43)
--- NOTE | 2022-06-03 15:36 | CHAPLAIN ---
Type of Pastoral Visit _x__ Initial Visit ___ Follow-up Visit ___ On-call Visit ___ General Patient Visit ___ Spiritual Assessment ___ Family Conference ___ Bereavement ___ Rapid Response ___ Code Blue ___ Other (describe below) Pastoral Care Referral From _x__ Patient _x__ Family ___ Nurse ___ Physician ___ [employer] ___ Hose Maker ___ Other (describe below) Sacrament/Intervention ___ Active listening ___ Anointing ___ Judaism ___ Bereavement ___ Communion ___ Hannah exploration ___ ___ Life review ___ Prayer ___ Reconciliation ___ Sacrament of Sick _x__ Supportive presence ___ Wedding ___ Other (describe below) Pastoral Comments patient is lying quietly in bed and opens eyes to his name; pt does not look into face of this patient financial representative and does not answer questions; pt may not be an Vietnamese speaker; offered to give support then simple words and hand motions; pt did nod his head a couple of times but that was the only response; no family is present but RN said that family has been visiting; left a calling card
[2022-06-03] MEDS: Polyethylene Glycol 3350 BOWEL PREP PO (15:39)
--- NOTE | 2022-06-03 17:30 | CASEMGMT ---
RN DARREN CHILDREN'S SERVICE SUPERVISOR CM to room to meet for initial transition planning/care coordination assessment. Son, Enoc, @ bedside. RN DARREN introduced self and role at [facility]. Pt resting in bed in no distress at this time.?Pt speaks limited Romansh. Assess completed w/son. Care providers, pharmacy, and demographics verified/updated at this time. PCP:Kristina Specialists: Dr Chance Preferred Pharmacy: [facility] Insurance: [facility] [place] Prescription Benefit: yes LW/HPOA: Pt son states does not know if pt has done LW, but he has done HCPOA and son is POA. LNOK: Enoc Henning, son; Bria Jacobson, dtr Living Arrangements: Pt lives with son, daughter in law and two grandsons in a two story house with a ramp to enter. Pt has an in law suite on the main floor. Pt has multimedia artist cg that is paid privately for 12 hours/day 7 days a week. Cg assists patient with all ADL's and IADL's. Family also assist as needed. Transportation: Pt children transport him to medical appts. DME: Pt has a shower chair, FWW, w/c, hospital bed, medical alert button, scanning BGM with sufficient supplies as well as insulin with sufficient supplies. Pt has PEG tube. HHC/SNF: Pt has had HHC in [place] and has had [facility] HHC. Pt has also been on [facility] RU. KADE BANKS had to step out of the room for awhile and when returned, dtr, Bria, @ bedside. She states no concerns with going home at time of dc. They do not want pt to go to SNF. They plan to continue with the private cg. Discussed HHC and dtr states they would like [facility] HHC again @ discharge. She declines wanting list of other HHC choices, as they were pleased w/the care pt received. Plan: Home with private duty cg and HHC. Maeve TOBAR RN, CM
[2022-06-03] MEDS: Docusate Sodium 100 MG/10 ML UDC GT (20:23)
[2022-06-04 03:00] VITALS: BP 137/90; PULSE 62; RESP 18; TEMP 36.6; O2SAT 98
[2022-06-04] MEDS: Menthol/Lanolin/Calamine/Znox 113 GM Tube 1 APPLIC TOPICAL (06:35)
[2022-06-04 06:51] LABS: Absolute Lymphocyte Count 1.51 X10^3/uL (0.83-4.51); Absolute Neutrophil Count 6.5 X10^3/uL (2.0-7.7); Basophil# 0.08 X10^3/uL; Basophil% 0.9 % (0-1); Eosinophils% 2.2 % (0-5); Hematocrit 37.8 % (40-54); Hemoglobin 12.6 g/dL (13.0-16.5); Lymphocyte # 1.51 X10^3/ul (0.83-4.51); Lymphocyte % 16.6 % (19-41); Mean Corp Hgb Conc 33.3 g/dL (32-36); Mean Corpuscular Hgb 26.7 pg (27.0-32.0); Mean Corpuscular Volume 80.1 fL (80-94); Mean Platelet Vol. 9.2 fl (6.2-12.0); Monocyte# 0.78 X10^3/uL; Monocyte% 8.6 % (0-10); NRBC Flagged by Analyzer 0 % (0-5); Neutrophil # 6.48 X10^3/uL (2.7-7.7); Neutrophil % 71.4 % (47-70); Platelet Count 316 K/mm3 (150-450); RBC Distribution Width CV 14.3 % (11.6-14.6); RBC Distribution Width SD 41.2 fl (35.1-43.9); Red Blood Count 4.72 M/mm3 (4.6-6.2); White Blood Count 9.1 K/mm3 (4.4-11.0)
[2022-06-04 07:20] LABS: ALB/GLOB Ratio 0.7 RATIO (0.9-2.4); AST(SGOT) 14 U/L (15-37); Alanine Aminotransfer ALT/SGPT 18 U/L (16-61); Albumin, Serum 2.9 g/dL (3.2-5.0); Alkaline Phosphatase 91 U/L (45-117); Anion Gap 7 (5-15); BUN 10 mg/dL (7-18); BUN/Creat Ratio 16.4 RATIO (10-20); Calcium,Total 9.2 mg/dL (8.5-10.1); Chloride 104 mmol/L (98-107); Creatinine, Serum 0.61 mg/dL (0.70-1.30); EST Glomerular Filtration Rate 136 mL/min (>60); Est Glom Filt Rate - Afr Amer 165 mL/min (>60); Estimated Creatinine Clearance 52.96 ml/min; Globulin 4.2 g/dL (2.2-4.2); Glucose 147 mg/dL (74-106); Magnesium 1.7 mg/dL (1.6-2.6); Phosphorus 2.7 mg/dL (2.5-4.9); Potassium 3.7 mmol/L (3.5-5.1); Protein, Total 7.1 g/dL (6.4-8.2); Sodium Level 136 mmol/L (136-145)
[2022-06-04 07:50] VITALS: BP 130/88; PULSE 68; RESP 18; TEMP 37; O2SAT 99
[2022-06-04] MEDS: Ensure Plus High Protein 120 ML LIQUID GT ×2 (08:02→11:27)
[2022-06-04] MEDS: Docusate Sodium 100 MG/10 ML UDC GT (08:02)
[2022-06-04] MEDS: 0.9% Normal Saline 1,000 ML 75 ML IV (10:22)
--- NOTE | 2022-06-04 10:51 | CASEMGMT ---
Addendum entered by Amaris Vivar 06/04/22 11:15: Pt son is requesting a squad to take pt home. Updated typing secretary. Addendum entered by Amaris Vivar 06/04/22 11:12: Received tc back from [facility] who states they can start care tomorrow. Updated pt/family. Original Note: RN CM in to pt room, pt son at bedside. He states they are interested in SN, PT and OT through [facility]. TC to Kaycee at [facility], left message with referral info and will await acceptance.
--- NOTE | 2022-06-04 10:52 | DCINST_ITS ---
Discharge Instructions Diet Discharge Diet: No restrictions Activity Discharge Activity: Return to Normal Activity Weight Bearing Status: Weight bearing as tolerated Follow Up Care Test Results: Test results from this visit will be discussed in further detail at your follow- up appointment, if applicable. Discharge Plan Admission Admit Date/Time: 06/02/22 03:04 Primary Reason for Your Visit: Acute lower GI bleed Attending Provider: Talia Smith Primary Care Provider: Diamond Acevedo Consulting Providers: Boom Ch ; Jack Kuhn ; Karina Melgar Instructions Additional Instructions / Restrictions: Continue with your tube feeds Follow-up with your PCP within 1 week Follow-up with GI within 2-4 weeks Discharge Orders/Prescriptions Prescriptions: New docusate sodium 50 mg/5 mL Liquid 100 mg G-tube BID 30 Days Qty: 600 0RF Ensure Plus High Protein 0.08 gram-1.5 kcal/mL Liquid 120 ml G-tube TIDCM Qty: 0 0RF Continued aspirin [Adult Aspirin Regimen] 81 mg tablet,delayed release (DR/EC) 81 mg PO DAILY@0800 metoclopramide HCl 5 mg tablet 2.5 mg PO BID clopidogrel 75 mg Tablet 75 mg PO DAILY omeprazole 20 mg Capsule,Delayed Release(Dr/Ec) mirtazapine 7.5 mg Tablet 7.5 mg PO DAILY Referrals / Follow Up: Diamond Acevedo MD [Primary Care Provider] - In 1 Week Disposition Disposition (needs filled in before D/C Order can be placed): Home Health Service
--- NOTE | 2022-06-04 10:58 | DS.PCM_ITS ---
Providers Date of Admission: 06/02/22 Date of Discharge: 06/04/22 Primary Care Physician: Diamond Acevedo MD Consultations 06/02/22 04:33 Consult: Gastroenterology Routine Consulting Provider: Jack Kuhn Reason for Consult: Acute GI bleed EMERGENT Consult: No MD Notified: Yes Date Notified: 06/02/22 Time Notified: 10:07 Method of Notification: via text Reason For Visit: ACUTE GI BLEED Diagnosis Discharge Diagnosis (1) GI bleed: Status: Acute Code(s): K92.2 - Gastrointestinal hemorrhage, unspecified Plan 1. Acute recurrent lower GI bleed, likely secondary to bleeding hemorrhoids 2. Anemia 3. History of CVA 4. Depression 5. Severe protein calorie malnutrition Medications at Discharge Home Medications aspirin 81 mg tablet,delayed release (Adult Aspirin Regimen) 81 mg PO DAILY@0800 [facility] 02/10/19 metoclopramide HCl 5 mg tablet 2.5 mg PO BID stomach 02/16/22 clopidogrel 75 mg tablet 75 mg PO DAILY blood thinner 06/02/22 mirtazapine 7.5 mg tablet 7.5 mg PO DAILY mood 06/02/22 omeprazole 20 mg capsule,delayed release mg gerd 06/02/22 docusate sodium 50 mg/5 mL oral liquid 100 mg (10 mL) G-tube BID 30 days #600 mL 06/04/22 food supplemt, lactose-reduced 0.08 gram-1.5 kcal/mL oral liquid (Ensure Plus High Protein) 120 ml G-tube TIDCM #0 mL 06/04/22 polyethylene glycol 3350 17 gram/dose oral powder (Miralax) 17 g feeding tube DAILY 30 days #510 grams 06/04/22 Hospital Course Operations None Procedures None Summary of Care Provided Minutes Spent on Discharge: 35 Hospital Course: 77-year-old male with past medical history of CVA, history of GI bleed secondary to hemorrhoids who comes in with bright red bleeding per rectum. Patient has had history of colonoscopy in February 2022 which showed anal fissure with colitis and hyperplastic polyp that was removed. Patient also has a PEG tube. Was admitted [facility] the [facility] floor and monitored. His hemoglobin was stable. CT abdomen pelvis on admission shows constipation with possible constricting lesion/neoplasm in the distal sigmoid colon. This finding was unchanged compared to previous. GI was consulted. Patient did not have any rectal bleeding during this admission. Patient had changes to his bowel regimen for constipation. MiraLAX and Colace were added. His hemoglobin remained stable and was discharged to follow-up with GI in the outpatient within 2 weeks and with his primary care doctor within 1 week. Physical Exam Narrative Physical exam: General: Alert, Oriented x3, Cooperative, appears frail HEENT: Atraumatic Oral: Moist Mucosa Neck: Supple Lungs: Diminished to auscultation Cardiovascular: HS I+II, regular, no murmurs Abdomen: PEG tube site is clean and dry, bowel Sounds Present, Soft, Non Tender Extremities: No edema Skin: No rashes, No breakdown Neurological: Grossly intact Psych/Mental Status: Appropriate Weight / BMI Weight Weight: 77.6 kg Body Mass Index (BMI) 28.4 ABG / Lab / Microbiology Data Result Diagrams: 06/04/22 06:39 06/04/22 06:39 Laboratory: Laboratory Results - last 24 hr 06/04/22 06:39: WBC 9.1, RBC 4.72, Hgb 12.6 L, Hct 37.8 L, MCV 80.1, MCH 26.7 L, MCHC 33.3, RDW Std Deviation 41.2, RDW Coeff of Brunilda 14.3, Plt Count 316, MPV 9.2, Immature Gran % (Auto) 0.300, Neut % (Auto) 71.4 H, Lymph % (Auto) 16.6 L, [place] % (Auto) 8.6, Eos % (Auto) 2.2, Baso % (Auto) 0.9, Absolute Neuts (auto) 6.5, Absolute Lymphs (auto) 1.51, Nucleated RBC % 0 06/04/22 06:39: Sodium 136, Potassium 3.7, Chloride 104, Carbon Dioxide 25.0, Anion Gap 7, BUN 10, Creatinine 0.61 L, Estim Creat Clear Calc 52.96, Est GFR (MDRD) Af Amer 165, Est GFR (MDRD) Non-Af 136, BUN/Creatinine Ratio 16.4, Glucose 147 H, Calcium 9.2, Phosphorus 2.7, Magnesium 1.7, Total Bilirubin 0.60, AST 14 L, ALT 18, Alkaline Phosphatase 91, Total Protein 7.1, Albumin 2.9 L, Globulin 4.2, Albumin/Globulin Ratio 0.7 L D/C Instructions Discharge Diet: No restrictions Weight Bearing Status: Weight bearing as tolerated Meaningful Use Info Meaningful Use Diagnoses (Choose all that apply): None applicable Discharge Plan Admission Admit Date/Time: 06/02/22 03:04 Primary Reason for Your Visit: Acute lower GI bleed Attending Provider: Talia Smith Primary Care Provider: Diamond Acevedo Consulting Providers: Boom Ch ; Jack Kuhn ; Karina Melgar Instructions Additional Instructions / Restrictions: Continue with your tube feeds as previously prescribed. Follow-up with your PCP within 1 week Follow-up with GI within 2-4 weeks Discharge Orders/Prescriptions Prescriptions: New docusate sodium 50 mg/5 mL Liquid 100 mg G-tube BID 30 Days Qty: 600 0RF Ensure Plus High Protein 0.08 gram-1.5 kcal/mL Liquid 120 ml G-tube TIDCM Qty: 0 0RF polyethylene glycol 3350 [Miralax] 17 gram/dose powder 17 g feeding tube DAILY 30 Days Qty: 510 0RF Continued aspirin [Adult Aspirin Regimen] 81 mg tablet,delayed release (DR/EC) 81 mg PO DAILY@0800 metoclopramide HCl 5 mg tablet 2.5 mg PO BID clopidogrel 75 mg Tablet 75 mg PO DAILY omeprazole 20 mg Capsule,Delayed Release(Dr/Ec) mirtazapine 7.5 mg Tablet 7.5 mg PO DAILY Referrals / Follow Up: Jack Kuhn DO [Med Staff - Active Staff] - Within 2 Weeks (LEFT A MESSAGE WITH DOCTOR'S OFFICE TO CALL PATIENT TO SET-UP A APPOINTMENT.) Diamond Acevedo MD [Primary Care Provider] - 06/07/22 1:00 pm (APPOINTMENT ON Friday @ 1:00PM) Disposition Disposition (needs filled in before D/C Order can be placed): Home Health Service Charges/Coding Visit Charges Inpatient E&M: 59388 Disch Hosp
[2022-06-04] MEDS: Bisacodyl 10 MG Suppository RC (11:16)
[2022-06-04] MEDS: Polyethylene Glycol 3350 17 GM PACKET 34 GM GT (11:20)
[2022-06-04] MEDS: FLU VACC QS2022-23(6MOS UP)/PF 60 MCG/0.5 ML SYRINGE IM (12:39)
[2022-06-04 12:53] VITALS: BP 136/96; PULSE 93; RESP 18; TEMP 36.8; O2SAT 96
--- NOTE | 2022-06-04 13:05 | CHAPLAIN ---
Type of Pastoral Visit ___ Initial Visit _x__ Follow-up Visit ___ On-call Visit ___ General Patient Visit ___ Spiritual Assessment ___ Family Conference ___ Bereavement ___ Rapid Response ___ Code Blue ___ Other (describe below) Pastoral Care Referral From _x__ Patient _x__ Family ___ Nurse ___ Physician ___ Belt Fixer ___ Clay Molder ___ Other (describe below) Sacrament/Intervention ___ Active listening ___ Anointing ___ Pentecostalism ___ Bereavement ___ Communion ___ Hannah exploration ___ ___ Life review ___ Prayer ___ Reconciliation ___ Sacrament of Sick _x__ Supportive presence ___ Wedding ___ Other (describe below) Pastoral Comments son of patient is in the room; pt is not talking; son is offered support for himself and his father; son states that pt is going home and that he just wants to rest in bed for now; offer of support as desired repeated
== END 2022-06-04 13:00 | disposition home health service (06) | DRG 393 ==
LOC: ED 06-02 02:23 → MS3 06-02 03:16
PROVIDERS: Admitting Provider Hospitalist; Emergency Provider Emergency Medicine; PCP Internal Medicine; Visit Provider Internal Medicine
DX: K64.9 Unspecified hemorrhoids (principal); E43 Unspecified severe protein-calorie malnutrition; E11.9 Type 2 diabetes mellitus without complications; Z93.1 Gastrostomy status; E78.5 Hyperlipidemia, unspecified; I10 Essential (primary) hypertension; K62.3 Rectal prolapse; K59.00 Constipation, unspecified; Z86.73 Personal history of transient ischemic attack (TIA), and cerebral infarction without residual deficits; F32.A Depression, unspecified; Z79.82 Long term (current) use of aspirin; Z68.21 Body mass index [BMI] 21.0-21.9, adult; Z23 Encounter for immunization
CPT/HCPCS: 36415; 74177; 80048; 80053; 80076; 83605; 83735; 84100; 85014; 85018; 85025; 85610; 85730; 97162; 97166; 97802; 99285; G0008; J7030; Q9967; 90686; A4216

== ENCOUNTER → 2022-06-15 | Outpatient (CLI) | payer MEDICARE, OTHER, SELFPAY | END | disposition home or self-care (01) | LOC: LABSPEC 10:24 | PROVIDERS: PCP Internal Medicine; Visit Provider Internal Medicine | DX: K92.2 Gastrointestinal hemorrhage, unspecified (principal); K64.4 Residual hemorrhoidal skin tags; K58.1 Irritable bowel syndrome with constipation | CPT/HCPCS: 87493 ==

== ENCOUNTER → 2022-07-24 | Outpatient (CLI) | payer MEDICARE, OTHER, SELFPAY ==
[2022-07-24 15:37] LABS: Basophil# 0.01 X10^3/uL; Basophil% 0.1 % (0-1); Hematocrit 37.7 % (40-54); Hemoglobin 11.8 g/dL (13.0-16.5); Mean Corp Hgb Conc 31.3 g/dL (32-36); Mean Corpuscular Hgb 26.5 pg (27.0-32.0); Mean Corpuscular Volume 84.5 fL (80-94); Mean Platelet Vol. 9.9 fl (6.2-12.0); Monocyte# 0.29 X10^3/uL; Monocyte% 3.5 % (0-10); NRBC Flagged by Analyzer 0 % (0-5); Neutrophil # 6.99 X10^3/uL (2.7-7.7); Neutrophil % 83.8 % (47-70); Platelet Count 368 K/mm3 (150-450); RBC Distribution Width CV 15.4 % (11.6-14.6); RBC Distribution Width SD 46.8 fl (35.1-43.9); Red Blood Count 4.46 M/mm3 (4.6-6.2); White Blood Count 8.3 K/mm3 (4.4-11.0)
[2022-07-24 16:14] LABS: Vitamin B12 791 pg/mL (211-911); Vitamin D,25 Hydroxy 29.4 ng/mL
[2022-07-24 16:15] LABS: ALB/GLOB Ratio 0.7 RATIO (0.9-2.4); AST(SGOT) 17 U/L (15-37); Alanine Aminotransfer ALT/SGPT 21 U/L (16-61); Albumin, Serum 3.1 g/dL (3.2-5.0); Alkaline Phosphatase 97 U/L (45-117); Anion Gap 11 (5-15); BUN 26 mg/dL (7-18); BUN/Creat Ratio 28.4 RATIO (10-20); Calcium,Total 9.8 mg/dL (8.5-10.1); Chloride 99 mmol/L (98-107); Creatinine, Serum 0.92 mg/dL (0.70-1.30); EST Glomerular Filtration Rate 85 mL/min (>60); Est Glom Filt Rate - Afr Amer 103 mL/min (>60); Globulin 4.7 g/dL (2.2-4.2); Glucose 330 mg/dL (74-106); Potassium 4.4 mmol/L (3.5-5.1); Protein, Total 7.8 g/dL (6.4-8.2); Sodium Level 133 mmol/L (136-145)
== END | disposition home or self-care (01) ==
LOC: LAB 13:51
PROVIDERS: PCP Internal Medicine; Referring Provider Internal Medicine Gastroenterology; Visit Provider Internal Medicine Gastroenterology
DX: R53.81 Other malaise (principal); E43 Unspecified severe protein-calorie malnutrition; R13.10 Dysphagia, unspecified; D64.9 Anemia, unspecified
CPT/HCPCS: 36415; 80053; 82306; 82607; 82652; 85025

== ENCOUNTER 2022-07-30 18:00 | Outpatient (RCR) | payer MEDICARE, OTHER, SELFPAY ==
[2022-07-30 18:33] LABS: Color, Urine Yellow (Yellow); Glucose, Dipstick Normal (Normal); Ketone-Dipstick Negative (Negative); Leukocyte Esterase-Dipstick Negative /ul (Negative); Nitrite-Dipstick Negative (Negative); Occult Blood-Urine 10 /ul (Negative); Protein-Dipstick 30 mg/dl (Negative); Specific Gravity, Urine 1.015 (1.002-1.030); Urine Bilirubin Dipstick Negative (Negative); Urine Clarity Clear (Clear); Urine Urobilinogen 1 mg/dl (Normal)
== END 2022-07-30 18:01 | disposition home or self-care (01) ==
LOC: HHLAB 18:00
PROVIDERS: PCP Internal Medicine; Visit Provider Internal Medicine
DX: R31.9 Hematuria, unspecified (principal)
CPT/HCPCS: 81002; 87086

== ENCOUNTER 2023-12-07 10:48 | Emergency (ER) | payer MEDICARE, OTHER, SELFPAY ==
[2023-12-07 10:50] VITALS: BP 162/100; PULSE 83; RESP 18; TEMP 36.4; O2SAT 95; BMI 23.6
--- NOTE | 2023-12-07 11:13 | CT_ITS ---
EXAM: CT HEAD WITHOUT INTRAVENOUS CONTRAST CLINICAL INDICATION: head injury TECHNIQUE: Multiple axial images were obtained of the head without intravenous contrast. This CT exam was performed using one or more of the following dose reduction techniques: automated exposure control, adjustment of the mA and/or kV according to patient size, and/or use of iterative reconstruction technique. COMPARISON: CT Head dated 11/07/2021 FINDINGS: BRAIN AND EXTRA-AXIAL SPACES: No hemorrhage or mass effect. No acute ischemia. Areas of diminished white matter density noted within both cerebral hemispheres suggestive of chronic microvascular change. Chronic left basal ganglion lacunar infarcts. Prominence of the cortical sulci and ventricles related to volume loss change. BONES/JOINTS: See below. SOFT TISSUES: Prominent right frontal scalp swelling with laceration. Chronic right zygomatic arch fractures again seen. SINUSES: No acute sinusitis. MASTOID AIR CELLS: Normal. Clear. CT/Brain/Head without Contrast IMPRESSION: 1. No acute intracranial abnormality. 2. Stable microvascular and senescent changes. Electronically Signed: Sunday Allred MD at 12:12 EDT ,
--- NOTE | 2023-12-07 11:14 | CT_ITS ---
EXAM: CT CERVICAL SPINE WITHOUT INTRAVENOUS CONTRAST CLINICAL INDICATION: fall TECHNIQUE: Helically acquired images were obtained of the cervical spine without intravenous contrast. 2D reformatted images were reviewed. This CT exam was performed using one or more of the following dose reduction techniques: automated exposure control, adjustment of the mA and/or kV according to patient size, and/or use of iterative reconstruction technique. COMPARISON: No relevant prior studies available. FINDINGS: VERTEBRAE: No acute fracture or subluxation. Anterior listhesis of C4 on C5 and C7 on T1 related to underlying degenerative change. Disc space narrowing and moderate vertebral body hypertrophy noted at C5-6 and C6-7 resulting in left C5-C6 and bilateral C6-7 neural foraminal narrowing. Prominent narrowing of the right C3-4 and C4-5 neural foramina related to facet hypertrophy. DISCS/SPINAL CANAL/NEURAL FORAMINA: See above. SOFT TISSUES: Nuchal calcification noted related to remote trauma. No prevertebral soft tissue swelling. LYMPH NODES: Normal. No cervical adenopathy. LUNG APICES: Unremarkable as visualized. CT/Spine Cervical without Contras IMPRESSION: No acute fracture or subluxation. Spondylosis as described. Electronically Signed: Sunday Allred MD at 12:16 EDT ,
--- NOTE | 2023-12-07 11:16 | EDS_ITS ---
<Statement entered by Jaimie Dia MD - 12/07/23 15:57> I have personally performed a face to face assessment of the patient and have reviewed the FRANKY Note. Patient was seen and examined with FRANKY Kayla Ochoa. I personally saw and examined this patient and agree with documentation. treatment, and plan. My hedrick findings are below: HPI: This is a 78-year-old male with a history of a previous stroke and wheelchair-bound who presents for head injury. The patient was being wheeled in his wheelchair down a ramp when he fell out striking his head. There was no LOC, the patient does have a hematoma and laceration to his forehead. He is not anticoagulated. Patient had 1 episode of vomiting since the event. He otherwise has been at baseline and no other injuries reported. Physical Exam: GEN: Alert, NAD HEAD: NC, hematoma and laceration over the right forehead. HEENT: Pupils equal and reactive bilaterally. Small laceration over the bridge of the nose. NECK: Supple, cervical collar in place. CHEST: Normal, nontender HEART: Regular rate and rhythm. Normal capillary refill. LUNGS: Clear to auscultation bilaterally. ABD: Soft, NT, ND BACK: No thoracic or lumbar TTP EXT: No cyanosis, edema. Normal ROM. Strength testing intact SKIN: Warm, dry. Facial lacerations as noted above. NEURO: Generalized (non focal) weakness and facial asymmetry (chronic) PSYCH: Flat affect MDM: Patient presents to the emergency department after a fall and closed head injury. The patient did sustain a forehead laceration and hematoma. Tetanus was updated. Patient in cervical collar. CT of the brain and cervical spine shows no intracranial bleed and no cervical spinal injuries. Cervical collar was removed. As noted in the note below the laceration was sutured. Patient tolerated this well. Sutured wound care discussed with the family. Patient will be discharged from the ED today. Follow-up discussed. IMPRESSIONS: 1. Fall out of wheelchair 2. Close head injury 3. Forehead laceration hematoma Jaimie Dia M.D. HPI HPI - Fall History of Present Illness Chief Complaint: Fall Narrative Narrative: 78-year-old male is wheelchair-bound from a stroke and his aide was wheeling him down his home ramp and he fell forward out of the wheelchair striking his head on the rubber ramp. No LOC. He had 1 episode of vomiting. He has a forehead laceration. [id number]-[id number] states his tetanus is up-to-date and he is otherwise acting at baseline. He is on Plavix. He does not stand or ambulate due to debility and stroke with residual left-sided weakness. [facility] Medical History Anxiety and depression BPH (benign prostatic hyperplasia) CVA (cerebral vascular accident) Diabetes mellitus Gastroparesis HLD (hyperlipidemia) HTN (hypertension) Sleep apnea Home Medications ?Medication ?Instructions ?Recorded ?Last Taken ?Type aspirin 81 mg tablet,delayed 81 mg PO DAILY@0800 [facility] 02/10/19 11/02/19 History release (Adult Aspirin Regimen) clopidogrel 75 mg tablet 75 mg PO DAILY blood thinner 06/02/22 Unknown History mirtazapine 7.5 mg tablet 7.5 mg PO DAILY mood 06/02/22 Unknown History omeprazole 20 mg capsule,delayed mg gerd 06/02/22 Unknown History release food supplemt, lactose-reduced 120 ml G-tube TIDCM #0 mL 06/04/22 Unknown Rx 0.08 gram-1.5 kcal/mL oral liquid (Ensure Plus High Protein) polyethylene glycol 3350 17 17 g feeding tube DAILY 30 days 06/04/22 Unknown Rx gram/dose oral powder (Miralax) #510 grams ondansetron 4 mg disintegrating 4 mg PO Q8H PRN nausea and 07/11/22 Unknown Rx tablet vomiting #14 tabs acetaminophen 500 mg tablet 1,000 mg PO Q6H PRN 01/24/23 Unknown History bismuth subsalicylate 262 mg/15 mL 524 mg PO Q30-60M PRN 01/24/23 Unknown History oral suspension (Pepto-Bismol) dimenhydrinate 50 mg tablet 50 mg PO HS 01/24/23 Unknown History (Dramamine) sertraline 50 mg tablet 50 mg PO DAILY 01/24/23 Unknown History metoclopramide HCl 5 mg tablet 2.5 mg (1/2 x 5 mg) PO BID stomach 06/19/23 Unknown Rx #60 tabs prochlorperazine maleate 10 mg 10 mg PO Q8H PRN nausea and 08/14/23 Unknown Rx tablet (Compazine) vomiting #90 tabs Allergy/AdvReac Type Severity Reaction Status Date / Time No Known Allergies Allergy Verified 12/07/23 10:59 Family History Mother Myocardial infarction Surgical History History of appendectomy History of cholecystectomy History of loop recorder (11/22/19) Social History household members: children and other housing: house Smoking Status: Never smoker alcohol intake: current alcohol intake frequency: a few times a week substance use type: does not use caffeine: Yes Type: coffee and tea ROS ROS ED ROS Narrative GI: Positive for vomiting. Neuro: Positive for headache. Skin: Positive for laceration. Musc: Negative for joint pain. EXAM Physical Exam Narrative Exam Narrative: CONST: Patient sitting in no acute distress. EYES: Normal inspection. PERRL, EOMI. ENT: 4 cm laceration right frontal scalp with clotted blood and hematoma above the eyebrow. No orbital step-offs or crepitus, 0.5 cm laceration on the upper bridge of the nose, no other facial injuries. No raccoon eyes or Omer sign, no nasal septal hematoma, no hemotympanum, no CSF otorrhea or rhinorrhea. NECK: Normal inspection. No midline tenderness. RESP: No respiratory distress, CTAB. Chest wall nontender. CVS: Regular rate and rhythm, no murmur, no gallop. ABD: Soft and nontender, no guarding or rebound, nondistended. PEG tube intact. Back: Normal inspection, no midline tenderness. EXTREMITIES: Extremities atrophied and left lower leg slightly contractured, 2+ radial and DP pulses, no acute bony tenderness. NEURO: Awake and alert, can tell me his name, equal cryptographic center specialist strength bilaterally. PSYCH: Normal affect. Const Vital Signs: 12/07/23 10:50 12/07/23 10:57 Temperature 97.6 F L Temperature Source Temporal Pulse Rate 83 Respiratory Rate 18 Respiratory Effort Normal Non-Labored Respiratory Depth Normal Respiratory Pattern Normal Blood Pressure 162/100 H Blood Pressure Mean 120 Pulse Ox 95 Oxygen Delivery Method Room Air Room Air MDM MDM MDM Narrative Medical decision making narrative: History gathered from: Multiple family members Differential: Closed head injury, skull fracture, intracranial hemorrhage Patient was brought in by family members after mechanical fall with head injury out of his wheelchair. He has a right forehead laceration and hematoma. No ot her injuries. He is debilitated with a history of stroke and will tell me his name and has equal cryptographic center specialist strength but otherwise does not speak much. Family states he is acting at baseline. He does not stand or ambulate. CT scans of the head and neck show no acute findings. I repaired his right frontal scalp wound with 4 sutures?see procedure note. There is a small upper nasal bridge abrasion that does not require repair. He was given Tylenol and family instructed on head injury precautions. They are comfortable with discharge home. Radiography Diagnostic Testing: Clinical Impression(s) from Imaging Studies Brain CT 12/07/23 11:13 IMPRESSION: 1. No acute intracranial abnormality. 2. Stable microvascular and senescent changes. Electronically Signed: Sunday Allred MD at 12:12 EDT , Cervical Spine CT 12/07/23 11:14 IMPRESSION: No acute fracture or subluxation. Spondylosis as described. Electronically Signed: Sunday Allred MD at 12:16 EDT , Procedures Lacerations Right frontal scalp: Length: 4 cm Depth: Sub Q Shape: Linear Prep: Sterile Conditions and Shure-Clens Laceration repair: Irrigated, Lidocaine, Local and Wound explored Irrigated (ml): 100 Number of Sutures/[place]: 4 Suture Information: Ethilon and 5-0 Discharge Plan Triage Chief Complaint: Fall ED Midlevel Provider: Kayla Ochoa ED Provider: Jaimie Dia Dx/Rx/DC Orders Clinical Impression: Closed head injury, Laceration of scalp, Traumatic hematoma of face, History of stroke Instructions: ED Head Injury (Adult), ED Laceration Scalp Stitches or Feliberto Prescriptions: No Action aspirin [Adult Aspirin Regimen] 81 mg tablet,delayed release (DR/EC) 81 mg PO DAILY@0800 acetaminophen 500 mg tablet 1,000 mg PO Q6H PRN dimenhydrinate [Dramamine] 50 mg tablet 50 mg PO HS bismuth subsalicylate [Pepto-Bismol] 262 mg/15 mL suspension 524 mg PO Q30-60M PRN Rx Instructions: do not exceed 8 doses in a 24 hour period sertraline 50 mg tablet 50 mg PO DAILY clopidogrel 75 mg Tablet 75 mg PO DAILY omeprazole 20 mg Capsule,Delayed Release(Dr/Ec) mirtazapine 7.5 mg Tablet 7.5 mg PO DAILY Ensure Plus High Protein 0.08 gram-1.5 kcal/mL Liquid 120 ml G-tube TIDCM Qty: 0 0RF polyethylene glycol 3350 [Miralax] 17 gram/dose powder 17 g feeding tube DAILY 30 Days Qty: 510 0RF ondansetron 4 mg tablet,disintegrating 4 mg PO Q8H PRN (Reason: nausea and vomiting) Qty: 14 0RF metoclopramide HCl 5 mg tablet 2.5 mg PO BID Qty: 60 2RF prochlorperazine maleate [Compazine] 10 mg tablet 10 mg PO Q8H PRN (Reason: nausea and vomiting) Qty: 90 1RF Primary Care Provider: Diamond Acevedo Referrals: Diamond Acevedo MD [[facility]] - Activity Restrictions/Additional Instructions: Please have patient stitches taken out in 5 days. Use an ice pack and give Tylenol as needed. Print Language: Bruneian Disposition Disposition: Home, Self Care
[2023-12-07] MEDS: Lidocaine 1% /Epi 1:100 (20ml) 20 ML Vial INFILT (11:36)
[2023-12-07 12:49] VITALS: BP 147/88; PULSE 70; RESP 18; O2SAT 94
[2023-12-07] MEDS: Acetaminophen 325 MG Tablet 650 MG PO (13:28)
[2023-12-07 14:00] VITALS: BP 150/94; PULSE 74; RESP 16; RESP 18; TEMP 36.7; O2SAT 94
== END 2023-12-07 14:09 | disposition home or self-care (01) ==
PROVIDERS: Emergency Provider Emergency Medicine; PCP Internal Medicine; Visit Provider Emergency Medicine
DX: S01.01XA Laceration without foreign body of scalp, initial encounter (principal); I69.344 Monoplegia of lower limb following cerebral infarction affecting left non-dominant side; E11.9 Type 2 diabetes mellitus without complications; W05.0XXA Fall from non-moving wheelchair, initial encounter; W10.2XXA Fall (on)(from) incline, initial encounter; R11.10 Vomiting, unspecified; Z99.3 Dependence on wheelchair; S01.81XA Laceration without foreign body of other part of head, initial encounter; Z90.49 Acquired absence of other specified parts of digestive tract; I10 Essential (primary) hypertension; E78.5 Hyperlipidemia, unspecified; Z79.82 Long term (current) use of aspirin; F41.9 Anxiety disorder, unspecified; F32.A Depression, unspecified
CPT/HCPCS: 12013; 70450; 72125; 99284

== ENCOUNTER 2023-12-17 11:19 | Outpatient (RCR) | payer MEDICARE, OTHER, SELFPAY | END 2024-01-14 23:59 | LOC: NS 11:19 | PROVIDERS: PCP Internal Medicine; Visit Provider Internal Medicine Gastroenterology | DX: Z71.3 Dietary counseling and surveillance (principal); E11.9 Type 2 diabetes mellitus without complications; Z93.1 Gastrostomy status | CPT/HCPCS: 97802 ==